=== PATIENT | male | born 1945 | race African-American/Black ===

== ENCOUNTER 2017-07-07 01:35 | Inpatient (IN) | payer OTHER, MEDICAID ==
[~2017-07-07] VITALS: Ht 188 cm; Wt 124.3 kg
[2017-07-07] MEDS ORDERED: QNAS80AE (02:00)
[2017-07-07] MEDS ORDERED: HYDR100T PO (02:00)
[2017-07-07] MEDS ORDERED: CARV25TA PO (02:00)
[2017-07-07] MEDS ORDERED: SPIR25TA2 PO (02:00)
[2017-07-07] MEDS ORDERED: POTA10CA32 PO (02:00)
[2017-07-07] MEDS ORDERED: ACET650T3 PO (02:00)
[2017-07-07] MEDS ORDERED: SITA50TAB PO (02:00)
[2017-07-07] MEDS ORDERED: ISOS60TA2 PO (02:00)
[2017-07-07] MEDS ORDERED: GLIP5TAB8 PO (02:00)
[2017-07-07] MEDS ORDERED: ELIQ5TAB PO (02:00)
[2017-07-07] MEDS ORDERED: LORA10CA PO (02:00)
[2017-07-07] MEDS ORDERED: FURO20TA2 PO (02:00)
[2017-07-07] MEDS ORDERED: ASPI1TAB PO (02:00)
[2017-07-07 02:19] LABS: BASO % 0.6 % (0.0-1.0); EOS # 0.1 10^3/uL (0.0-0.50); EOS % 1.8 % (0.0-3.0); IMMATURE GRANULOCYTE % 0.3 % (0-0); LYMPH # 0.8 10^3/uL (1.5-4.5); LYMPH % 11.7 % (24.0-44.0); MEAN CORPUSCULAR HEMOGLOBIN 27.9 pg (27.0-33.0); MEAN CORPUSCULAR HGB CONC 32.6 g/dl (32.0-36.5); MEAN CORPUSCULAR VOLUME 85.5 fl (80.0-96.0); MONO # 0.6 10^3/uL (0.0-0.8); MONO % 8.7 % (0.0-5.0); NEUTROPHILS # 5.1 10^3/uL (1.8-7.7); NEUTROPHILS % 76.9 % (36.0-66.0); PLATELET COUNT, AUTOMATED 203 10^3/uL (150-450); RED CELL DISTRIBUTION WIDTH 14.6 % (11.5-14.5); WHITE BLOOD COUNT 6.6 10^3/uL (4.0-10.0)
[2017-07-07 02:45] LABS: CALCIUM LEVEL 9.1 MG/DL (8.8-10.2); CREATININE FOR GFR 2.17 MG/DL (0.70-1.30); GLOMERULAR FILTRATION RATE 32.1 (>42); POTASSIUM SERUM 4.2 MEQ/L (3.5-5.1)
[2017-07-07 02:55] LABS: ALBUMIN 3.3 GM/DL (3.2-5.2); ALBUMIN/GLOBULIN RATIO 0.97 (1.00-1.93); BILIRUBIN,DIRECT 0.5 MG/DL (0.0-0.2); TOTAL PROTEIN 6.7 GM/DL (6.4-8.2)
[2017-07-07] MEDS ORDERED: FUROSEMIDE 100 MG/10 ML VIAL (J1940) IV ONE (04:45)
[2017-07-07] MEDS ORDERED: FLON1SPR (05:19)
[2017-07-07] MEDS ORDERED: HYDR-3911 PO (05:19)
[2017-07-07] MEDS ORDERED: FURO80TA2 PO (05:19)
[2017-07-07 05:26] LABS: THYROXINE (T4) 8.9 UG/DL (4.5-12.0)
[2017-07-07] MEDS ORDERED: GLUCOSE 4 GM CHEW TABLET PO PRN (06:00)
[2017-07-07] MEDS ORDERED: DEXTROSE 50% 50 ML SYRINGE IV PRN (06:00)
[2017-07-07] MEDS ORDERED: GLUCAGON FOR INJ 1 MG VIAL (J1610) SC PRN (06:00)
--- NOTE | 2017-07-07 06:00 | REPUSA ---
CLINICAL HISTORY: Shortness of breath. TECHNIQUE: Multiple axial CT images were obtained through chest with IV contrast material. MPR beckford l and sagittal sequences were obtained. COMMENTS: Moderate cardiomegaly. Moderate pulmonary congestion. Pacemaker wire is in good position. Moderate hepatomegaly. Irregular hepatic contour. Bilateral basilar atelectatic pulmonary changes. There is no evidence of pleural or parenchymal mass. There are no pleural effusions. There is no evid ence of hilar or mediastinal lymphadenopathy. The heart and great vessels are within normal limits. There is no intra or extrahepatic biliary ductal dilatation. The spleen is unremarkable. The visualiz ed pancreas is of normal contour and attenuation characteristics. There is no evidence of adrenal mas s. The visualized portions of the kidneys present no abnormalities. The bony structures are free of lytic or blastic lesions. Multilevel degenerative changes are seen in volving the thoracic spine. Scattered calcifications are seen involving the aorta and visualized janet r branches compatible with atherosclerosis. IMPRESSION: Hepatomegaly. Pulmonary venous congestion. Cardiomegaly. Basilar atelectatic pulmonary changes. Thank you for your kind referral of this patient.
--- NOTE | 2017-07-07 06:21 | HPEPDOC ---
General Date of Admission 07/07/2017 Other Providers PCP: Dr. Fernando Hagan in [place] He just recently moved [place] approximately 1.5 months ago, therefore he will need to establish with a new PCP Attending Physician: YARA RYDER MD Chief Complaint The patient is a 71-year-old male admitted with a reason for visit of SOB. Source: Patient Exam Limitations: No limitations History of Present Illness Mr. Vargas is a 71-year-old -[place]ux[place] male who presented to the emergency department with complaints of shortness of breath for 2 days duration. He states that he also has had a nonproductive cough during that time as well. He believes that this may be due to some postnasal drip. He denies any fevers, chills, night sweats, and he does not weigh himself. He does not think that he has increased swelling of the lower extremities, but that his lower extremities are at their usual state of edema currently. He admits that he has not been able to sleep lying down ever since he put in his defibrillator. He does not wear a CPAP or BiPAP. Generally he is able to ambulate quite well using a cane, however now he gets short of breath just walking beyond even a few steps. Home Medications Scheduled (Flonase Allergy Relief) 50 Mcg/Act Spr, 2 SPRAYS NA DAILY, (Reported) Acetaminophen (Acetaminophen ER) 650 Mg Tab, 650 MG PO Q8H, (Reported) Apixaban Base (Eliquis) 5 Mg Tab, 5 MG PO BID, (Reported) Aspirin (Aspirin 81) 81 Mg Tab, 81 MG PO DAILY, (Reported) Carvedilol (Carvedilol) 25 Mg Tab, 25 MG PO BID, (Reported) Furosemide (Furosemide) 80 Mg Tab, 80 MG PO TID, (Reported) Glipizide (Glipizide) 5 Mg Tab, 5 MG PO DAILY, (Reported) Hydralazine HCl (Hydralazine HCl) 50 Mg Tab, 50 MG PO TID, (Reported) Isosorbide Mononitrate (Isosorbide Mononitrate ER) 60 Mg Tab, 60 MG PO DAILY, ( Reported) Potassium Chloride (Potassium Chloride ER) 10 Meq Cap, 10 MEQ PO BID, (Reported) Sitagliptin (Januvia) 50 Mg Tab, 50 MG PO DAILY, (Reported) Spironolactone (Spironolactone) 25 Mg Tab, 25 MG PO DAILY, (Reported) Allergies Coded Allergies: No Known Allergies (Unverified , 07/07/17) Past Medical History Medical History Atrial fibrillation on Eliquis Congestive heart failure status post placement and defibrillator (presumed systolic, but he does not know) Diabetes mellitus type 2 Hypertension Bilateral lower extremity ulcers, he has 2 ulcers on the left leg, one anteriorly one posteriorly both approximately 1 cm, he has one ulcer on the right leg on the anterior tibia approximately 1.5 cm Surgical History Right inguinal hernia repair Bilateral knee surgeries Defibrillator placement Finger surgery Family History Both his mother and father suffered from heart failure. He has no other past family history of stroke, heart attack, diabetes, or cancer Social History * Smoker: Denies (never smoker) Alcohol: Denies Drugs: denies Recent Travel/Sick Contacts: Reports: Recent travel (moving here from [place] approximately 1.5 months ago), Denies: Recent sick contacts Psychosocial History: No pertinent psych hx He is able ambulate with a cane, normally he is able to get around just fine with such as activities as grocery shopping. Review of Symptoms Constitutional: Denies: Chills, Fever, Night Sweats Eyes: Denies: Pain, Vision change ENT: Denies: Head Aches, Ear Pain, Dysphagia Skin: Denies: Rash, Lesions, Breakdown Pulmonary: Reports: Dyspnea, Cough (nonproductive) Cardiovascular: Reports: Orthopnea, Paroxysmal Noc. Dyspnea, Denies: Chest Pain, Palpitations, Lt Headedness Gastrointestinal: Denies: Nausea, Vomiting, Abdominal Pain, Diarrhea Genitourinary: Denies: Dysuria, Frequency, Incontinence, Retention Hematologic: Denies: Bruising, Bleeding Excessively Neurological: Denies: Weakness, Numbness, Change in speech, Confusion Psych: Reports: Mood Normal, Denies: Depression, Memory Issues Physical Examination General Exam: Positive: Alert, Cooperative, Mild Distress Eye Exam: Positive: Conjunctiva & lids normal, EOMI, Negative: Sclera icteric ENT Exam: Positive: Atraumatic, Mucous membr. moist/pink, Pharynx Normal Neck Exam: Positive: Supple, JVD, Negative: thyromegaly Chest Exam: Positive: Rales, Wheezing, Diminished Heart Exam: Positive: Rate Normal, Irregular Rhythm Telemetry: Positive: Atrial fibrillation Abdomen Exam: Positive: Normal bowel sounds, Soft, Negative: Tenderness, Hepatospenomegaly Extremity Exam: Positive: Edema (2+ pitting edema to the knees bilaterally), Normal pulses, Negative: Clubbing, Cyanosis Skin Exam: Positive: Nl turgor and temperature, Negative: Breakdown, Lesion Neuro Exam: Positive: Normal Gait, Normal Speech, Strength at 5/5 X4 ext, Cranial Nerves 3-12 NL Psych Exam: Positive: Mental status NL, Mood NL, Oriented x 3, Negative: Anxiety Vital Signs Vital Signs Date Time Temp Pulse Resp B/P (MAP) Pulse Ox O2 Delivery O2 Flow Rate FiO2 07/07/17 04:54 97.6 20 134/89 (104) 07/07/17 04:43 98 92 07/07/17 02:35 Room Air Laboratory Data Labs 24H Laboratory Tests 2 07/07/17 02:13: Immature Granulocyte % (Auto) 0.3H, White Blood Count 6.6, Red Blood Count 4.98 , Hemoglobin 13.9L, Hematocrit 42.6, Mean Corpuscular Volume 85.5, Mean Corpuscular Hemoglobin 27.9, Mean Corpuscular Hemoglobin Concent 32.6, Red Cell Distribution Width 14.6H, Platelet Count 203, Neutrophils (%) (Auto) 76.9H, Lymphocytes (%) (Auto) 11.7L, Monocytes (%) (Auto) 8.7H, Eosinophils (%) (Auto) 1.8, Basophils (%) (Auto) 0.6, Neutrophils # (Auto) 5.1, Lymphocytes # (Auto) 0.8L, Monocytes # (Auto) 0.6, Eosinophils # (Auto) 0.1, Basophils # (Auto) 0.0, Immature Granulocyte # (Auto) 0.0, Nucleated Red Blood Cells % (auto) 0.0, Anion Gap 8, Glomerular Filtration Rate 32.1L, Blood Urea Nitrogen 33H, Creatinine 2.17H, Sodium Level 136, Potassium Level 4.2, Chloride Level 98, Carbon Dioxide Level 30, Calcium Level 9.1, Aspartate Amino Transf (AST/SGOT) 7L , Alanine Aminotransferase (ALT/SGPT) 20, Alkaline Phosphatase 69, Total Bilirubin 1.0, Direct Bilirubin 0.5H, Total Creatine Kinase 112, Creatine Kinase MB 2.0, Creatine Kinase MB Relative Index 1.78, Troponin I 0.02, NT-Pro-B -Type Natriuretic Peptide 4489H, Total Protein 6.7, Albumin 3.3, Albumin/ Globulin Ratio 0.97L, Thyroid Stimulating Hormone (TSH) 2.410, Free Thyroxine Index 3.9H, Thyroxine (T4) 8.9, Triiodothyronine (T3) Uptake 44H CBC/BMP Laboratory Tests 07/07/17 02:13 Red Blood Count 4.98, Mean Corpuscular Volume 85.5, Mean Corpuscular Hemoglobin 27.9, Mean Corpuscular Hemoglobin Concent 32.6, Red Cell Distribution Width 14.6 H, Neutrophils (%) (Auto) 76.9 H, Lymphocytes (%) (Auto) 11.7 L, Monocytes (%) (Auto) 8.7 H, Eosinophils (%) (Auto) 1.8, Basophils (%) (Auto) 0.6, Neutrophils # (Auto) 5.1, Lymphocytes # (Auto) 0.8 L, Monocytes # (Auto) 0.6, Eosinophils # (Auto) 0.1, Basophils # (Auto) 0.0, Calcium Level 9.1 Problems (1) Acute decompensated heart failure Status: Acute Problem Text: Will aggressively diurese with IV Lasix to net negative 2 L. We' ll keep him on a consistent carbohydrate diet with no added salt as well as a low-fat, low cholesterol restriction. As the patient is unsure as to what type of congestive heart failure he has, and he has never had an echocardiogram in our system we will order one at this time. We will follow daily labs including a BMP with a magnesium, as well as CBC, thyroid panel was negative in the ED, as well as initial cardiac marker panel, but we will cycle 2 additional cardiac marker panels. His AN-proBNP was elevated. (2) Acute renal failure Status: Acute Problem Text: The patient is a good historian and appears to be well aware of his medical history, however he is unaware of any sort of renal failure, therefore we must treat him as though he is in acute renal failure. We will order UA, urine electrolytes and osmolality, and renal ultrasound (3) Atrial fibrillation Status: Chronic Problem Text: Continue home dose of Eliquis (4) Congestive heart disease Status: Chronic Problem Text: Continue with home dose of spironolactone and carvedilol (5) Hypertension Status: Chronic Problem Text: Continue with his home dose of hydralazine and isosorbide mononitrate (6) Diabetes mellitus type 2 in obese Status: Chronic Problem Text: We will hold home oral diabetic medications and place him on insulin sliding scale before meals and at bedtime while inpatient (7) Bilateral leg ulcer Status: Chronic Problem Text: Will have wound care come and evaluate him and treat as necessary (8) Status post internal cardiac defibrillator procedure Status: Chronic Plan / VTE VTE Prophylaxis Ordered?: Yes (Eliquis) GME ATTESTATION GME ATTESTATION My preceptor for this patient encounter was physically present in the building during the encounter and was fully available. As needed, all aspects of the patient interview, examination, medical decision making process, and medical care plan development were reviewed and approved by the preceptor. Preceptor is aware and concurs with the plan as stated in the body of this note and will attest to such by his/her cosignature. ATTENDING NOTE I have both independently examined this patient as well as reviewed the H&P. I have discussed in detail with the resident the findings and plan of treatment as documented in the residents note. I will continue to follow the patient and offer further guidance to the patients care as necessary during this hospital stay. KATHARINE JORDAN DO Jul 07, 2017 06:21 YARA RYDER MD Jul 07, 2017 18:35
[2017-07-07] MEDS: FUROSEMIDE 100 MG/10 ML VIAL (J1940) IV SCH ×3 (07:41→17:25)
[2017-07-07] MEDS: SPIRONOLACTONE 25 MG TAB PO SCH (08:37)
[2017-07-07] MEDS: APIXABAN 5 MG TAB (ELIQUIS) PO SCH ×2 (08:37→22:04)
[2017-07-07] MEDS: ASPIRIN 81 MG ENTERIC TAB PO SCH (08:37)
[2017-07-07] MEDS: SENOKOT S TAB PO SCH ×2 (08:37→22:04)
[2017-07-07] MEDS: HumaLOG INSULIN (NovoLOG) PER UNIT SC SCH ×3 (08:38→17:30)
[2017-07-07] MEDS: ACETAMINOPHEN 650MG ER TAB (TYLENOL ARTHRITIS) PO SCH ×3 (08:38→22:03)
[2017-07-07] MEDS: CARVedilol 12.5 MG TAB PO SCH ×2 (08:38→22:04)
[2017-07-07] MEDS: ISOSORBIDE MON. (IMDUR) 60 MG XR TAB PO SCH (08:39)
[2017-07-07] MEDS: FLUTICASONE PROP 0.05% NASAL SPRAY 16 GM (FLONASE) SCH (08:39)
[2017-07-07] MEDS ORDERED: **hydrALAZINE** 50 MG TAB PO SCH (09:00)
[2017-07-07 10:23] LABS: INR 1.82
[2017-07-07 10:33] LABS: MEAN CORPUSCULAR HEMOGLOBIN 27.5 pg (27.0-33.0); MEAN CORPUSCULAR HGB CONC 32.5 g/dl (32.0-36.5); MEAN CORPUSCULAR VOLUME 84.8 fl (80.0-96.0); RED CELL DISTRIBUTION WIDTH 14.6 % (11.5-14.5); WHITE BLOOD COUNT 6.4 10^3/uL (4.0-10.0)
[2017-07-07 10:37] LABS: CREATININE FOR GFR 2.03 MG/DL (0.70-1.30); FREE T4 1.57 NG/DL (0.76-1.46); POTASSIUM SERUM 3.6 MEQ/L (3.5-5.1)
[2017-07-07 12:00] VITALS: BP 105/63
--- NOTE | 2017-07-07 15:09 | ECGEPIP ---
Stationary ECG Study [facility] - ED Test Date: 2017-07-07 Pat Name: JENNI KELLEY Department: Room: [place] [address] Gender: M Office Lead: GormanB: 1945 Requested By: KIMBERLY Blakely Order Number: [id number] Reading MD: Racheal Adler Measurements Intervals [place] Rate: 102 P: SD: 0 QRS: 105 QRSD: 109 T: 60 QT: 375 QTc: 489 Interpretive Statements ATRIAL FIBRILLATION WITH RAPID VENTRICULAR RESPONSE MARKED RIGHT AXIS DEVIATION PATTERN CONSISTENT WITH PULMONARY DISEASE INFERIOR MYOCARDIAL INFARCTION, PROBABLY OLD NO PRIOR FOR COMPARISON Electronically Signed On 07-07-2017 15:08:54 EDT by Racheal Adler
[2017-07-07 16:00] VITALS: BP 105/77
[2017-07-07] MEDS ORDERED: POTASSIUM CHLORIDE 10 MEQ SR TABLET PO ONE (16:00)
[2017-07-07] MEDS: KCL 10MEQ IN 100ML SWI (KRUN) 10 MEQ in APPROPRIATE DILUENT 1 EA IV SCH ×4 (16:37→17:26)
[2017-07-07 16:52] LABS: CREATININE FOR GFR 1.91 MG/DL (0.70-1.30); POTASSIUM SERUM 3.7 MEQ/L (3.5-5.1)
--- NOTE | 2017-07-07 18:20 | REPUSA ---
Clinical history: Renal failure. Findings: The urinary bladder appears unremarkable. No urinary bladder masses are seen. The right kid david measures 13.3 x 7.5 x 6.2 cm. The left kidney measures 11.9 x 9.9 x 6.1 cm. The kidneys demonstra te normal echotexture and echogenicity. There is no evidence of hydronephrosis or nephrolithiasis. No renal masses are seen. No free fluid is appreciated. Impression: Unremarkable ultrasound examination of the kidneys.
[2017-07-07 19:10] LABS: OSMOLALITY URINE 306 MOSM/KG (500-800)
[2017-07-07 19:54] VITALS: BP 133/91
--- NOTE | 2017-07-07 20:15 | IPN ---
DATE: 07/07/2017 SUBJECTIVE: Patient is seen and examined in the room today. Patient stated his breathing is improving. Patient has a chronic history of congestive heart failure, however patient has not been following fluid restriction religiously. Patient has been having chronic lower extremity wounds from uncontrolled fluid issue. Patient used to see a livestock nutrition territory manager in [place]. Patient moved to [place] approximately 1-2 months ago and has not established with a primary care provider. OBJECTIVE: VITAL SIGNS: Temperature 96.9, pulse 93, respirations 18, blood pressure 105/63, pulse oximetry 96% in room air. GENERAL: Morbidly obese. No sign of acute distress. Alert and oriented times three. HEENT: Normocephalic, atraumatic. Extraocular motors grossly intact. CARDIOVASCULAR: Positive S1, S2, irregularly irregular. LUNGS: Positive crackles bilaterally. No wheezes. ABDOMEN: Morbidly obese, soft, nontender, nondistended. Bowel sounds present. EXTREMITIES: There are multiple small skin lesions with serous fluid draining out from the ulcers. Positive lower extremity edema. LABORATORY DATA: WBC 6.4, hemoglobin 13.8, hematocrit 42.5, platelet count 204. Sodium 133, potassium 3.6, chloride 95, carbon dioxide 32, BUN 32, creatinine 2.03, GFR 42, fasting glucose 164, calcium 9, magnesium 2. Free T4 is 1.57. ASSESSMENT AND PLAN: 1. Systolic congestive heart failure. Patient will have a repeat echo performed. At baseline, patient is taking by mouth Lasix and by mouth spironolactone. Patient has not been very compliant with fluid restriction at home. Currently, patient is receiving IV Lasix diuresis along with by mouth spironolactone. IV Lasix has a holding parameter. Will try to achieve negative 2 liters in 24 hour duration. 2. Acute kidney injury, now above patient's renal function baseline. Patient received Lasix diuresis. Since admission, renal function is improving. Followup with urine chemistry and renal ultrasound. 3. Atrial fibrillation, on Eliquis. Patient is also taking Coreg. 4. Nonsustained ventricular tachycardia. Since admission, has had three episodes of nonsustained ventricular tachycardia and the most recent is only spaced out by 1 hour. During both episodes, patient is asymptomatic. Patient does have a defibrillator. Case discussed with eco industrial development consultant livestock nutrition territory manager, Dr. Frank, who recommends continued monitoring and we will try to maintain the potassium level greater than 4. Will also continue to monitor the magnesium. At this moment, magnesium level is within normal range. 5. Diabetes. Will hold the glipizide and Januvia. Continue with the sliding scale. Patient will be on consistent carbohydrate diet. 6. Bilateral leg ulcer with serous fluid drainage. Most likely is secondary to chronic fluid overload. Continue to monitor. Patient has been on aggressive Lasix diuresis. 7. History of defibrillator placement. 8. Hypertension. Currently patient is hypotensive. Will hold the hydralazine. Patient is receiving Lasix diuresis. Continue to monitor blood pressure. 9. Deep venous thrombosis (DVT) prophylaxis. Patient is on Eliquis.
[2017-07-07 23:59] VITALS: BP 112/80
[2017-07-08] VITALS (14 sets, daily range): BP systolic 122–134; BP diastolic 76–91; O2SAT 92–97
[2017-07-08] MEDS: FUROSEMIDE 100 MG/10 ML VIAL (J1940) IV SCH ×4 (00:21→17:46)
[2017-07-08 05:45] LABS: MEAN CORPUSCULAR HEMOGLOBIN 27.4 pg (27.0-33.0); MEAN CORPUSCULAR HGB CONC 32.4 g/dl (32.0-36.5); MEAN CORPUSCULAR VOLUME 84.5 fl (80.0-96.0); RED CELL DISTRIBUTION WIDTH 14.6 % (11.5-14.5); WHITE BLOOD COUNT 5.9 10^3/uL (4.0-10.0)
[2017-07-08] MEDS: ACETAMINOPHEN 650MG ER TAB (TYLENOL ARTHRITIS) PO SCH ×3 (05:59→21:42)
[2017-07-08 06:12] LABS: CALCIUM LEVEL 8.7 MG/DL (8.8-10.2); CREATININE FOR GFR 1.84 MG/DL (0.70-1.30); MAGNESIUM LEVEL 1.9 MG/DL (1.8-2.4); POTASSIUM SERUM 3.7 MEQ/L (3.5-5.1)
--- NOTE | 2017-07-08 06:21 | ECHO ---
DATE OF PROCEDURE: 07/07/2017 REFERRING PHYSICIAN: Dr. Mariana Weller. INDICATION: Heart failure unspecified, dyspnea. HEIGHT: 74 inches. WEIGHT: 129 kg. 2D MEASUREMENTS: Aortic root: 3.7 cm Proximal ascending aorta: 3.8 cm Left atrium: 5.5 cm Left ventricle diastole: 6.6 cm Ventricular septum: 1.12 cm Posterior wall: 1.01 cm Inferior vena cava: 2.8 cm DOPPLER MEASUREMENTS: Aortic valve velocity: 84.7 cm/s LVOT velocity: 57.9 cm/s LVOT VTI: 9.8 cm Moderate mitral regurgitation. Mitral E velocity: 91.8 cm/s Mitral A velocity: 40.0 cm/s Mitral deacceleration time: 111 ms Moderate tricuspid regurgitation. Estimated right ventricular systolic pressure at least 56 mmHg assuming an atrial pressure of 20 mmHg. Mild pulmonic regurgitation. Pulmonary artery systolic pressure 44 mmHg by pulmonary acceleration time method. MITRAL ANNULAR TISSUE DOPPLER: E-prime lateral: 7.4 cm/s E-prime septal: 7.6 cm/s DESCRIPTION: Rhythm was sinus with some PVCs and an episode of nonsustained ventricular tachycardia was recorded. This was a 2D, M-mode, color flow Doppler and pulsed wave Doppler examination and included mitral annular tissue Doppler. Imaging quality was fair. CONCLUSIONS: 1. Moderately dilated left ventricle with severe global LV hypokinesis and severe reduction of overall LV systolic function. LVEF 10% by visual estimate. 2. Structurally normal appearing mitral leaflets. Moderate mitral regurgitation. 3. Severe left atrial dilatation. 4. Mild dilatation of the proximal ascending aorta. 5. Structurally normal appearing tricuspid leaflets. Moderate tricuspid regurgitation. Suggestive of moderate elevation of pulmonary artery systolic pressure and estimated right ventricle systolic pressure. Normal right ventricle systolic function. 6. 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 Elevated central venous pressure of at least 20 mmHg. 7. Mild aortic valve sclerosis of a 3-cusp aortic valve. 8. Small pericardial effusion. No diastolic chamber collapse. 9. Presence of an ICD lead coursing toward the right ventricle apex position.
[2017-07-08] MEDS: HumaLOG INSULIN (NovoLOG) PER UNIT SC SCH ×3 (07:55→17:45)
[2017-07-08] MEDS ORDERED: AMIODARONE HCL 150 MG in APPROPRIATE DILUENT 1 EA IV STA (08:58)
[2017-07-08] MEDS: APIXABAN 5 MG TAB (ELIQUIS) PO SCH ×2 (08:59→21:36)
[2017-07-08] MEDS: SPIRONOLACTONE 25 MG TAB PO SCH (08:59)
[2017-07-08] MEDS: ISOSORBIDE MON. (IMDUR) 60 MG XR TAB PO SCH (08:59)
[2017-07-08] MEDS: SENOKOT S TAB PO SCH ×2 (08:59→21:37)
[2017-07-08] MEDS: ASPIRIN 81 MG ENTERIC TAB PO SCH (08:59)
[2017-07-08] MEDS: CARVedilol 12.5 MG TAB PO SCH ×2 (08:59→21:36)
[2017-07-08] MEDS: FLUTICASONE PROP 0.05% NASAL SPRAY 16 GM (FLONASE) SCH (09:00)
[2017-07-08] MEDS: PANTOPRAZOLE 40MG TAB (PROTONIX) PO SCH (15:24)
--- NOTE | 2017-07-08 17:25 | IPN ---
DATE: 07/08/2017 SUBJECTIVE: Patient is seen and examined in the room today. Patient stated his breathing has shown some improvement with Lasix diuresis. Patient has significant urine output from the IV Lasix. Patient recently moved to [place] approximately 1 1/2 months ago. Patient is staying in [place] for a long time, however patient has not established with a primary care physician (PCP) and closing coordinator. Patient does have a closing coordinator in [place]. We will try to obtain the record from the previous closing coordinator and consent obtained from the patient. On telemetry, patient does have frequent nonsustained ventricular tachycardia and it re-occurs every 1-2 hours. Since admission, patient has remained asymptomatic. OBJECTIVE: VITAL SIGNS: Temperature 97.3, pulse 80, respirations 19, blood pressure 122/77, pulse oximetry 94% in room air. GENERAL: No sign of acute distress, alert and oriented times three. HEENT: Normocephalic, atraumatic. Extraocular motors grossly intact. CARDIOVASCULAR: Irregularly irregular, positive S1, S2. LUNGS: Positive crackles bilaterally, no wheezes. ABDOMEN: Morbidly obese, soft, nontender, nondistended. Bowel sounds present. EXTREMITIES: There is a skin tear of the right lower extremity. Still has multiple small skin lesions with serous fluid drainage of the ulcers. Positive bilateral lower extremity edema. LABORATORY DATA: WBC 5.9, hemoglobin 13.4, hematocrit 41.3, platelet count 188. Sodium 135, potassium 3.7, chloride 97, carbon dioxide 30, BUN 34, creatinine 1.84, GFR 47, fasting glucose 129, calcium 8.7, magnesium 1.9. ASSESSMENT AND PLAN: 1. Systolic congestive heart failure exacerbation. Echocardiogram was performed. From the echo report, patient has an ejection fraction (EF) of approximately 10%. Patient is currently being diuresed with IV Lasix. Patient does have a good net balance. Respiratory status has been improving. Case was discussed with Dr. Biswas and we are trying to establish patient with cardiology in [place]. Patient also has a defibrillator. Patient is also on spironolactone. 2. Frequent nonsustained ventricular tachycardia. Approximately every 1-2 hours, the patient has 5-10 beats of ventricular tachycardia. Patient has been asymptomatic during those episodes. Dr. Biswas has been consulted and we started amiodarone and currently patient is on carvedilol. We will try to obtain the records from patient's closing coordinator. 3. Acute kidney injury secondary to decompensated heart failure. Patient has been receiving IV Lasix since admission and renal function is improving. Followup with urine chemistry and renal ultrasound. 4. Atrial fibrillation, on Eliquis and on Coreg. 5. Diabetes. Hold the glipizide and Januvia. Continue on sliding scale and consistent carbohydrate diet. 6. Bilateral leg ulcers with serous fluid drainage, most likely secondary to chronic fluid overload. Patient is being treated with Lasix diuresis. Would recommend foam dressing on the skin tears and foam dressing can also help with some degree of serous drainage fluid removal. 7. History of defibrillator placement. 8. Hypertension. Hydralazine has been on hold due to the soft blood pressure on admission. Currently, patient's blood pressure is in the satisfactory range. Patient is currently on Lasix diuresis and Coreg, Imdur, and spironolactone. 9. Deep venous thrombosis (DVT) prophylaxis, on Eliquis.
[2017-07-08] MEDS: AMIODARONE 200 MG TAB (PACERONE) PO SCH (21:37)
[2017-07-08] MEDS: **hydrALAZINE** 10 MG TAB PO SCH (21:41)
[2017-07-08] MEDS: ISOSORBIDE DIN (ISORDIL) 10 MG TAB PO SCH (21:42)
--- NOTE | 2017-07-08 21:53 | CR ---
DATE OF CONSULTATION: 07/08/2017 REFERRING PHYSICIAN: Dr. Huang INDICATION: Cardiomyopathy, severe systolic congestive heart failure and bouts of nonsustained ventricular tachycardia. HISTORY OF PRESENT ILLNESS: Mr. Vargas is previously unknown to me. He is a very pleasant 71-year-old -[place] man who actually moved to [facility] only about 6 weeks ago. He tells me that he was diagnosed with cardiac condition approximately a year and a half ago. He has very limited understanding of what this means but based on the history, it seems to me that he most likely has nonischemic cardiomyopathy. He was started on appropriate medications and was implanted with a defibrillator. The patient denies any history of coronary artery disease, but cannot tell me whether he had any coronary intervention. He tells me that he got sick approximately a month and a half ago, around the time when he moved to [facility]. He said it was about a 17-hour ride in a car and when he got out of the car, he immediately realized that he developed some peripheral edema. It got slowly, progressively worse, and he started having exertional dyspnea to the degree of eventually orthopnea and paroxysmal nocturnal dyspnea (PND). When he came to our emergency room, he was in tim congestive heart failure with a mild degree of pulmonary edema and very prominent peripheral edema. He was found to be in atrial fibrillation with modestly rapid ventricular rate. BNP was extremely elevated over 4000. For reasons that are somewhat mysterious to me, he had a CT angiography of the chest. It did confirm cardiomegaly and presence of congestion, including hepatic congestion. He was admitted to the progressive care unit (PCU) and treated with fairly aggressive doses of intravenous (IV) diuretics. His blood pressure was initially fairly soft, so his chronic hydralazine was discontinued. Dr. Huang has asked me to see him mostly because he kept having multiple runs of nonsustained ventricular tachycardia that were occurring every hour or two, none of them were long enough that they would activate his defibrillator. At the time of my evaluation, the patient tells me that he is feeling slightly better. He does report some improvement of the shortness of breath, not much improvement in peripheral edema. He has no awareness of any palpitations, and he denies any chest discomfort. PAST MEDICAL HISTORY 1. Most likely nonischemic cardiomyopathy. 2. Chronic atrial fibrillation. 3. Status post implantable cardioverter defibrillator (ICD) placement (the patient does not know what brand of device he has). 4. Chronic cough. 5. Type 2 diabetes. 6. Arterial hypertension. SURGICAL HISTORY: Positive for: Bilateral knee surgeries. Inguinal hernia repair and defibrillator placement. OUTPATIENT MEDICATIONS: - spironolactone 25 mg a day - Januvia 50 mg a day - isosorbide mononitrate 60 mg a day - hydralazine 50 mg three times a day - glipizide 5 mg a day - furosemide 80 mg three times a day - Coreg 25 mg twice a day - aspirin 81 mg a day - apixaban 5 mg twice a day - Tylenol as needed. ALLERGIES: He does not have any documented medication allergies. FAMILY HISTORY: Both of his parents of congestive heart failure. He is not aware of any details but does not believe that he had coronary artery disease. SOCIAL HISTORY: The patient does not smoke and does not drink alcohol. He just moved from [place] approximately a month and a half ago to live with his daughter. 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 He, at his baseline, ambulates with a cane. REVIEW OF SYSTEMS: As of recently, he had paroxysmal nocturnal dyspnea (PND) and orthopnea. He has chronic mostly nonproductive cough that he has been ascribing to postnasal drip. No palpitations. No chest pain. No syncope. No ICD discharges. No abdominal pain. No nausea, vomiting, diarrhea. No genitourinary symptoms. No skin lesions. He at his baseline has only mild peripheral edema that is much worse lately. Denies any psychiatric history. The rest of review of systems is negative. PHYSICAL EXAMINATION: Mr. Vargas is an elderly -[place] man, very pleasant, alert and oriented and appropriate. Last set of vital signs: Blood pressure 130/76, heart rate has been in 80s, irregularly irregular. He is afebrile. Saturation 95% on room air. His fluid balance yesterday was negative 2600. He is about a liter negative today. Weight is documented this morning 144 kg, which in my opinion seems to be more than is realistic. He was yesterday measured at only 129, which seems to me more like so. His jugular venous pressure (JVP) is at least 5 or 6 cm above clavicle in sitting position. Lungs are relatively clear to auscultation with only occasional crackle. I do not appreciate any wheezing. Heart: Exam reveals rather muffled heart sound with irregularly irregular rhythm, and there is a systolic murmur at the left sternal border and also in apex, indicative of likely both tricuspid and mitral insufficiency. There is an ICD in left subclavian pocket. Abdomen is obese but soft. I cannot elicit shifting dullness. No tenderness or rebound tenderness. There is 3+ edema well above his knees. Neurologically he is intact. Renal ultrasound revealed no obstruction. CT of the chest revealed cardiomegaly and presence of venous congestion. Chest x-ray reveals the same plus presence of single chamber ICD. He had an echocardiogram earlier that was interpreted by Dr. Frank, but I reviewed it myself. In a nutshell, it reveals severe enlargement of all four cardiac chambers with global hypokinesis and associated insufficiencies of mitral and tricuspid valves. His central venous pressure (CVP) is very high consistent with physical exam. LABORATORY: Basic metabolic panel as of today reveals potassium 3.7, BUN 34, creatinine 1.8 for a GFR of 47 and glucose 129, magnesium is 1.9. His TSH on admission was 2.4 and N-terminal proBNP was 4489. His CBC reveals hemoglobin 13.4, hematocrit 41 and platelet count 188,000. Urine is negative for protein. ASSESSMENT AND PLAN: Mr. Vargas is a 71-year-old -[place] man who most likely has nonischemic cardiomyopathy, potentially even tachycardia-induced cardiomyopathy even though seems to be less likely. On presentation to the hospital, he was already on an excellent medication regimen. The fact that he was not on angiotensin-converting enzyme (QUINTEN) inhibitors makes me think that he probably has baseline renal dysfunction. Currently, he is grossly volume overloaded, and I agree with current diuretic regimen. I am going to reintroduce a low dose of hydralazine. It was rather unfortunate that he underwent CT angiography on presentation as the diagnosis seems to be rather obvious and with chronic anticoagulation the probability of pulmonary embolus is very low. But fortunately his renal function is improving, which is encouraging. As far as multiple runs of nonsustained ventricular tachycardia is concerned, he was already started on amiodarone. We will see how his condition evolves, but I am hoping that we will avoid long-term administration of amiodarone, possibly the dose of Coreg can be increased further because he is a large man and certainly the dose can be increased to 50 mg twice a day, but I would NOT do so until his condition is a little bit better hemodynamically compensated. The rest of management will depend on the record that we received from [place]. Depending what was already done will influence what further evaluation he may need locally. I will follow the patient with you. Thank you for this consultation.
[2017-07-09] VITALS (23 sets, daily range): BP systolic 112–140; BP diastolic 63–89; O2SAT 85–99
[2017-07-09] MEDS: FUROSEMIDE 100 MG/10 ML VIAL (J1940) IV SCH ×4 (00:10→17:48)
[2017-07-09 05:44] LABS: MEAN CORPUSCULAR HEMOGLOBIN 27.4 pg (27.0-33.0); MEAN CORPUSCULAR HGB CONC 32.7 g/dl (32.0-36.5); MEAN CORPUSCULAR VOLUME 83.9 fl (80.0-96.0); RED CELL DISTRIBUTION WIDTH 14.6 % (11.5-14.5); WHITE BLOOD COUNT 5.9 10^3/uL (4.0-10.0)
[2017-07-09 06:03] LABS: CALCIUM LEVEL 9.1 MG/DL (8.8-10.2); CREATININE FOR GFR 1.84 MG/DL (0.70-1.30); MAGNESIUM LEVEL 1.9 MG/DL (1.8-2.4); POTASSIUM SERUM 3.6 MEQ/L (3.5-5.1)
[2017-07-09] MEDS: ACETAMINOPHEN 650MG ER TAB (TYLENOL ARTHRITIS) PO SCH ×3 (06:45→21:24)
[2017-07-09] MEDS: **hydrALAZINE** 10 MG TAB PO SCH ×3 (06:45→21:24)
[2017-07-09] MEDS: ISOSORBIDE DIN (ISORDIL) 10 MG TAB PO SCH ×3 (06:45→21:23)
[2017-07-09] MEDS: FLUTICASONE PROP 0.05% NASAL SPRAY 16 GM (FLONASE) SCH (08:10)
[2017-07-09] MEDS: HumaLOG INSULIN (NovoLOG) PER UNIT SC SCH ×3 (08:11→17:48)
[2017-07-09] MEDS: APIXABAN 5 MG TAB (ELIQUIS) PO SCH ×2 (08:13→21:24)
[2017-07-09] MEDS: PANTOPRAZOLE 40MG TAB (PROTONIX) PO SCH (08:13)
[2017-07-09] MEDS: CARVedilol 12.5 MG TAB PO SCH ×2 (08:13→21:25)
[2017-07-09] MEDS: AMIODARONE 200 MG TAB (PACERONE) PO SCH ×2 (08:13→21:24)
[2017-07-09] MEDS: SPIRONOLACTONE 25 MG TAB PO SCH (08:14)
[2017-07-09] MEDS: SENOKOT S TAB PO SCH ×2 (08:14→21:24)
[2017-07-09] MEDS: ASPIRIN 81 MG ENTERIC TAB PO SCH (08:14)
--- NOTE | 2017-07-09 08:28 | IPN ---
DATE: 07/09/2017 Mr. Vargas tells me that he had a decent night. He was able to sleep reasonably well and did not have any paroxysmal nocturnal dyspnea (PND). He denies any sensation of palpitations or chest pain. He continued to have several episodes of nonsustained ventricular tachycardia, the longest was seven beats. Blood pressure this morning is 140/86, heart rate has been mostly from 60s to 80s. He is atrial fibrillation with intermittent ventricular pacing. Saturation is 99% on 2 liters of oxygen by nasal cannula. Fluid balance was yesterday documented at 900 negative, he put out over 2 liters of urine but I am not sure how accurate the documentation of both intake and output actually is. Weight according to scales is actually up 4 kg which seems highly unlikely. He is alert and oriented and appropriate. His jugular venous pulse (JVP) is still very high. I estimate about 5 or 6 cm above clavicle in sitting position. Lungs are reasonably clear to auscultation. Heart exam reveals irregular rhythm. There are murmurs suggestive of both MR and TR. Abdomen is distended but soft. There is still 3+ edema bilaterally above his knees. LABORATORY: Basic metabolic panel - potassium 3.6, BUN 38, creatinine 1.8 for calculated GFR 47, glucose is 132. CBC reveals hemoglobin 13.3, hematocrit 40.7 and platelet count 182,000. ASSESSMENT/PLAN: Mr. 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 He presented with acutely exacerbated systolic/diastolic congestive heart failure in setting of reasonably well rate-controlled atrial fibrillation. As a complicating factor he has acute on chronic renal insufficiency and he also has multiple runs of nonsustained ventricular tachycardia. At this point we should continue focus on diuresis. He is receiving 80 mg of furosemide three times a day and 25 mg of spirolactone. I reintroduced hydralazine and isosorbide yesterday as blood pressure is sufficiently high to allow this. He is also on full dose of Coreg 25 twice a day, will continue the same management. If tolerated I will further advance the dose of vasodilating agents. He is not on QUINTEN inhibitors. I suspect that this is due to some degree of baseline renal insufficiency. I expect that we will receive some records from [place] today. The second issue are the runs of nonsustained ventricular tachycardia, they were so frequent that Dr. Huang actually initiated amiodarone therapy. I am hoping that once we stabilize his situation as far as heart failure is concerned that we will be able to eliminate the amiodarone, but for the time being I would continue administration. As far as the atrial fibrillation is concerned, he is reasonably well-controlled and he is anticoagulated with Eliquis. He was started by Dr. Huang on methimazole 5 mg daily, I am not exactly sure what is the rationale and unless there is some strong evidence for hyperthyroidism which I do not see I would advocate to discontinue the medication.
[2017-07-09] MEDS ORDERED: INFLUENZA VIRUS VACCINE HIGH DOSE 0.5 ML SYRINGE (90662) IM ONE (09:00)
[2017-07-09] MEDS ORDERED: PREVNAR 13 VACCINE SYRINGE (CPT CODE:90670) IM ONE (09:00)
--- NOTE | 2017-07-09 13:02 | IPN ---
DATE OF SERVICE: 07/09/2017 Patient seen and examined at the bedside. Chart has been reviewed. Patient has no complaints of chest pain, pressure or tightness, lightheadedness or dizziness. Input overnight of 1200, output of 2125, negative 925. Weight is 144.5 kg, 148.4 kg. Vital signs: Temperature 97.2, pulse 88, respiratory rate 20, blood pressure 128/89, 94% on room air. Generally awake, alert, oriented times three, answering questions appropriately. Positive jugular venous distention. Lungs are clear to auscultation. No wheezing, rales or rhonchi. Heart: S1, S2, irregularly irregular. Abdomen is soft, nontender, nondistended. 3+ pitting edema bilaterally. Laboratory data, imaging studies have been reviewed. Renal ultrasound 07/07/2017, unremarkable ultrasound of the kidneys. ASSESSMENT AND PLAN: This is a 71-year-old male with past medical history significant for atrial fibrillation on Eliquis, congestive heart failure (CHF) status post automatic implantable cardioverter defibrillator (AICD), type 2 diabetes, hypertension, bilateral lower extremity ulcers, currently with the following issues. 1. Systolic, diastolic congestive heart failure exacerbation. 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 Currently on IV Lasix three times a day and spironolactone, hydralazine, isosorbide and Coreg. Due to chronic kidney disease, patient is on an angiotensin-converting enzyme (QUINTEN) inhibitor. 2. Nonsustained ventricular tachycardia. Amiodarone. Currently on telemetry monitoring for changesOptimize potassium and magnesium. 3. Atrial fibrillation. Reasonably well controlled, anticoagulated with Eliquis. 4. Normal thyroid-stimulating hormone (TSH). Will discontinue methimazole Free T4, T3 only slightly elevated. and TSH is normal may repeat TFTs as outpatient. [facility]
[2017-07-09] MEDS: ONDANSETRON 4MG/2ML VIAL (J2405) IV PRN (17:00)
[2017-07-10] VITALS (18 sets, daily range): BP systolic 103–128; BP diastolic 57–90; O2SAT 91–100
[2017-07-10 05:37] LABS: MEAN CORPUSCULAR HEMOGLOBIN 27.2 pg (27.0-33.0); MEAN CORPUSCULAR VOLUME 85.2 fl (80.0-96.0); RED CELL DISTRIBUTION WIDTH 14.7 % (11.5-14.5); WHITE BLOOD COUNT 7.2 10^3/uL (4.0-10.0)
[2017-07-10 05:45] LABS: CREATININE FOR GFR 2.35 MG/DL (0.70-1.30); GLOMERULAR FILTRATION RATE 35.5 (>42); MAGNESIUM LEVEL 1.9 MG/DL (1.8-2.4); POTASSIUM SERUM 4.1 MEQ/L (3.5-5.1)
[2017-07-10] MEDS: ISOSORBIDE DIN (ISORDIL) 10 MG TAB PO SCH ×3 (06:05→21:25)
[2017-07-10] MEDS: ACETAMINOPHEN 650MG ER TAB (TYLENOL ARTHRITIS) PO SCH ×3 (06:05→21:25)
[2017-07-10] MEDS: **hydrALAZINE** 10 MG TAB PO SCH ×3 (06:05→21:25)
[2017-07-10] MEDS: FUROSEMIDE 100 MG/10 ML VIAL (J1940) IV SCH ×4 (06:06→21:20)
--- NOTE | 2017-07-10 07:52 | IPN ---
DATE: 07/10/2017 Mr. Vargas tells me that he did not have a particularly good night, it was kind of hard for him to breathe. He believes mostly because the room was too warm. He apparently normally sleeps in a cold room well that he keeps cool to about 65 degrees. Denies any chest pain. Denies any palpitations. He did not have any tim paroxysmal nocturnal dyspnea (PND) as such. Vital signs: Blood pressure 111/63, heart rate has been in 70s. His atrial fibrillation with on demand ventricular pacing and he continues to have runs of nonsustained ventricular tachycardia that are asymptomatic. Saturation is 94-97 % on 2 liters of oxygen by nasal cannula. His fluid balance yesterday was documented as negative 1100. Weight is 146 kg. He is alert and oriented and appropriate. His jugular venous pulse (JVP) is still very high. Lungs reveal occasional end inspiratory crackle but for the most part is clear. Heart exam irregular rhythm. No gallop or rub. There is murmur consistent with MR and TR well audible. There is remains to be about 2+ edema on both lower extremities, even though I do see some improvement. Neurologically he is intact. LABORATORY: Potassium 4.1, BUN 43, creatinine 2.4 for GFR 36 which is actually a deterioration since yesterday, glucose is 165. ASSESSMENT/PLAN: Mr. Vargas is a 71-year-old man who has chronic atrial fibrillation and likely nonischemic cardiomyopathy. He presented with exacerbated systolic heart failure with concomitant renal insufficiency. Unfortunately his condition is not improving as rapidly as I would like to I am particularly concerned about the fact that his creatinine is actually worse today than it was yesterday. I am going to discontinue Cardizem that was prescribed yesterday, it is not a good idea to give Cardizem to the patient with severe LV systolic dysfunction and it has negative inotropic properties and is considered relatively contraindicated in his condition. I am trying to advance the dose of hydralazine ever so slightly in order to provide additional vasodilatation. If there is no effect we probably will have to give him even higher doses of diuretics in spite of the renal insufficiency because his central venous pressure unfortunately remains high. The second issue is atrial fibrillation. He has been chronically anticoagulated with apixaban and rate is reasonably well-controlled. If needs to be the dose of Coreg can be increased further. He also was started on amiodarone because of frequent runs of nonsustained ventricular tachycardia which will help the rate control as well. I am somewhat concerned about the fact that his renal function deteriorated yesterday. I talked about this with the patient. Unfortunately we still have not received the records from [place] and I asked the overage shortage and damage clerk to work on this issue. CHAD
[2017-07-10] MEDS: APIXABAN 5 MG TAB (ELIQUIS) PO SCH ×2 (08:57→20:17)
[2017-07-10] MEDS: AMIODARONE 200 MG TAB (PACERONE) PO SCH ×2 (08:57→21:26)
[2017-07-10] MEDS: HumaLOG INSULIN (NovoLOG) PER UNIT SC SCH ×3 (08:57→17:47)
[2017-07-10] MEDS: ASPIRIN 81 MG ENTERIC TAB PO SCH (08:57)
[2017-07-10] MEDS: PANTOPRAZOLE 40MG TAB (PROTONIX) PO SCH (08:57)
[2017-07-10] MEDS: CARVedilol 12.5 MG TAB PO SCH ×2 (08:58→21:25)
[2017-07-10] MEDS: SENOKOT S TAB PO SCH ×2 (08:59→21:26)
[2017-07-10] MEDS: FLUTICASONE PROP 0.05% NASAL SPRAY 16 GM (FLONASE) SCH (08:59)
--- NOTE | 2017-07-10 09:23 | REP ---
Portable chest x-ray: Single view. History: CHF. Check for resolution. Comparison study: July 07, 2017. Findings: A unipolar pacemaker is again seen in the right heart via the left side. EKG electrodes are noted. Cardiomegaly is seen unchanged. There is cephalization of the pulmonary vasculature as before. No pleural effusion or pulmonary edema is seen. There is a zone of linear plate-like atelectasis in the left base today. No new infiltrate. Signed by Leonidas Yancey MD 07/10/2017 09:33 A
--- NOTE | 2017-07-10 12:31 | IPN ---
DATE OF SERVICE: 07/10/2017 Patient is seen and examined at the bedside. Chart has been reviewed. This morning, patient has persistent complaints of shortness of breath despite diuresis yesterday of 2 liters and net negative of 1 liter. No chest pain, pressure tightness, nausea, vomiting, diaphoresis, feeling of impending doom, fever, chills or cough. He complains of abdominal discomfort and increasing abdominal distension. Per RN, pt is having bowel movements. Telemetry consistently showed NSVT. vital signs were stable and patient was asymptomatic. CURRENT VITALS: Temperature 98.1, pulse 59, respiratory rate 18, blood pressure 125/90, 97% on 2 liters nasal cannula. Input 970, output 2080, negative 1110. Current weight 148.1 kg, 148.4 kg yesterday, 146.1 kg this morning. Generally, patient is awake, alert, oriented times three, anicteric sclera, no jaundice. Positive jugular venous distention. Moist mucous membranes. Lungs: Diminished with fine rales at the bases. Heart: S1, S2 sinus rhythm. S1, S2 irregularly irregular. AICD noted. Abdomen: Obese, soft, nontender, slightly distended. some ascites. Extremities: 3+ edema to the sacrum. Laboratory data, imaging studies have been reviewed. ASSESSMENT AND PLAN: This is a 71-year-old male with history of atrial fibrillation on chronic Eliquis, congestive heart failure (CHF), severe systolic dysfunction, ejection fraction 10% status post automatic implantable cardioverter defibrillator (AICD), type 2 diabetes, hypertension, bilateral lower extremity ulcers, currently with the following issues. 1. Systolic, diastolic heart failure exacerbation. Acute on chronic exacerbation. Ejection fraction of 10% despite increasing BUN and creatinine. Patient continues to be fluid overloaded. Will continue to diurese with Lasix 80 IV every 8 hours and spironolactone. Will need nephrology at some point if patient continues to have decreased output with worsening creatinine currently in congestive heart failure (CHF) thought to be secondary to tachycardia mediated dilated cardiomyopathy. Currently on spironolactone, hydralazine, isosorbide and Coreg. Due to chronic kidney disease, worsening BUN and creatinine, angiotensin receptor blockers (ARBs) or angiotensin-converting enzyme (QUINTEN) inhibitor could not be given. 2. Nonsustained ventricular tachycardia status post AICD. Optimized potassium and magnesium, asymptomatic and with normal vitals during the episode. Continue on telemetry monitoring. 3. Atrial fibrillation. Rate controlled, anticoagulated with Eliquis 4. Abdominal pain most likely from ascites from severe chf and fluid overload. If stable on telemetry and blood pressure permitting, will send for ultrasound of the abdomen. If a significant pocket of ascitic fluid, will proceed with paracentesis. MTDD
[2017-07-10] MEDS: PERCOCET 5MG/325MG TAB PO PRN (17:47)
[2017-07-10 18:36] LABS: MAGNESIUM LEVEL 2.1 MG/DL (1.8-2.4); POTASSIUM SERUM 4.1 MEQ/L (3.5-5.1)
[2017-07-10] MEDS: SPIRONOLACTONE 12.5MG PER 1/2 TABLET PO SCH (21:25)
[2017-07-11] VITALS (10 sets, daily range): BP systolic 99–137; BP diastolic 62–86; O2SAT 89–98
[2017-07-11] MEDS: PERCOCET 5MG/325MG TAB PO PRN ×3 (00:04→21:37)
[2017-07-11 05:23] LABS: MEAN CORPUSCULAR HEMOGLOBIN 27.6 pg (27.0-33.0); MEAN CORPUSCULAR HGB CONC 33.2 g/dl (32.0-36.5); MEAN CORPUSCULAR VOLUME 83.2 fl (80.0-96.0); RED CELL DISTRIBUTION WIDTH 14.7 % (11.5-14.5); WHITE BLOOD COUNT 6.1 10^3/uL (4.0-10.0)
[2017-07-11 05:50] LABS: CREATININE FOR GFR 2.7 MG/DL (0.70-1.30); GLOMERULAR FILTRATION RATE 30.2 (>42)
[2017-07-11 05:51] LABS: CALCIUM LEVEL 8.6 MG/DL (8.8-10.2)
[2017-07-11] MEDS: ISOSORBIDE DIN (ISORDIL) 10 MG TAB PO SCH ×3 (06:20→21:38)
[2017-07-11] MEDS: FUROSEMIDE 100 MG/10 ML VIAL (J1940) IV SCH ×3 (06:20→21:35)
[2017-07-11] MEDS: ACETAMINOPHEN 650MG ER TAB (TYLENOL ARTHRITIS) PO SCH ×3 (06:27→21:37)
--- NOTE | 2017-07-11 08:19 | IPN ---
DATE OF SERVICE: 07/11/2017 Patient seen and examined at the bedside. Chart has been reviewed. Patient complains of bilateral lower quadrant abdominal pain, increasing abdominal distention despite net negative diuresis for the past 4 days, decrease in weight from peak weight of 148 kg to 145 kg. He continues to be short of breath with no complaints of chest pain, pressure, tightness. Had slight nausea this morning. Vitals: Temperature 96.9, pulse 60, respiratory rate 18, blood pressure 99/76, 97% on 2 liters nasal cannula. Generally, awake, alert, oriented times three, answering questions appropriately. No use of respiratory accessory muscles. Positive jugular venous distention. Moist mucous membranes. Lungs: Diminished. Clear to auscultation upper lobes. Crackles at the bases. Heart: S1, S2. Irregularly irregular. Abdomen is obese, soft, slightly tender bilateral lower quadrants. 2+ pitting edema. LABORATORY DATA 07/11: CBC, metabolic panel have been reviewed. Chest x-ray 07/10: No pulmonary edema is seen. Linear plate like atelectasis. No new infiltrate. Unipolar pacer right heart. Cardiomegaly unchanged. ASSESSMENT AND PLAN: This is a 71-year-old male with history of chronic kidney disease stage III, congestive heart failure (CHF), atrial fibrillation on chronic Eliquis, automated implantable cardioverter-defibrillator (AICD), 10% ejection fraction, diabetes, hypertension, bilateral lower extremity ulcers admitted for worsening shortness of breath, currently with acute exacerbation congestive heart failure. 1. Acute exacerbation and congestive heart failure systolic/diastolic dysfunction. Ejection fraction 10%. Thought to be secondary to tachycardic mediated dilated cardiomyopathy and spironolactone, hydralazine, isosorbide, Coreg and Lasix due to chronic kidney disease. Worsening BUN and creatine. Dick inhibitor and angiotensin receptor blockers (ARBs) could not be given. Dr. Biswas is currently managing current medications. Will consult nephrology due to worsening creatinine. 2. Moderate tricuspid regurgitation with moderate pulmonary hypertension/moderate mitral regurgitation, severe left atrial dilation. Currently on spironolactone, isosorbide, Coreg. Managed by Dr. Biswas, Cardiology. 3. Atrial fibrillation, rate controlled on anticoagulation with Eliquis and aspirin. Currently on Coreg 25 twice daily. 4. Hypertension, currently hypotensive, systolic pressure 99. Currently on hydralazine and isosorbide, will need to be titrated for better blood pressure, to increase diuresis. Defer to cardiology. 5. Acute on chronic renal failure secondary to congestive heart failure. 6. History of diabetes and hypertension in the past. Defer to Dr. Ferreira for diuresis. Renal ultrasound shows unremarkable ultrasound with no hydronephrosis or nephrolithiasis. 7. Abdominal pain most likely due to ascites. Check ultrasound of the abdomen. Possible paracentesis.
[2017-07-11] MEDS: PANTOPRAZOLE 40MG TAB (PROTONIX) PO SCH (08:54)
[2017-07-11] MEDS: HumaLOG INSULIN (NovoLOG) PER UNIT SC SCH ×3 (08:54→18:31)
[2017-07-11] MEDS: CARVedilol 12.5 MG TAB PO SCH ×2 (08:55→21:38)
[2017-07-11] MEDS: **hydrALAZINE** 10 MG TAB PO SCH ×3 (08:55→21:36)
[2017-07-11] MEDS: AMIODARONE 200 MG TAB (PACERONE) PO SCH ×2 (08:55→21:35)
[2017-07-11] MEDS: ASPIRIN 81 MG ENTERIC TAB PO SCH (08:56)
[2017-07-11] MEDS: SENOKOT S TAB PO SCH ×2 (08:56→21:38)
[2017-07-11] MEDS: FLUTICASONE PROP 0.05% NASAL SPRAY 16 GM (FLONASE) SCH (08:56)
[2017-07-11] MEDS: APIXABAN 5 MG TAB (ELIQUIS) PO SCH ×2 (09:00→21:00)
--- NOTE | 2017-07-11 09:01 | IPN ---
DATE: 07/11/2017 Mr. Vargas is not doing well. Last night, he had paroxysmal nocturnal dyspnea (PND). He had had difficulty breathing. He feels better this morning. Denies any chest pain or palpitations. On telemetry monitoring, he remains in mostly controlled atrial fibrillation. He still has brief runs of nonsustained ventricular tachycardia, but it is improving. Vital signs this morning, blood pressure 99/76, heart has been in the 60s, he is afebrile and saturation is 97% on 2-3 liters oxygen by nasal cannula. His fluid balance yesterday was documented about 700 mL negative. He put out only about 1925 mL of urine. Weight is 145 kg, which is about 1 kg down since yesterday. He is alert, oriented and appropriate. His jugular venous pulse (JVP) is high, probably not better than yesterday. Lungs though are relatively clear. Heart exam reveals an irregular rhythm. There are murmurs of mitral regurgitation (MR) and tricuspid regurgitation (TR). I do not appreciate a rub or gallop. Abdomen is distended, but soft. There is some induration of the skin over the lower abdomen and he complains about some pain in that area. There remains very prominent peripheral edema. Neurologically, he is intact. Laboratory-bynum, CBC is normal. Basic metabolic panel reveals sodium 129, BUN 51 and creatinine 2.7 for a GFR of 30, and magnesium is 2. ASSESSMENT/PLAN: Mr. Vargas is a 71-year-old, -[place] man who has acute on chronic systolic congestive heart failure in the setting of presumptively nonischemic cardiomyopathy. He also has atrial fibrillation that is reasonably well rate-controlled. Unfortunately, he remains grossly volume overloaded and simultaneously his renal function is deteriorating with the attempt for diuresis. I am concerned that this may lead to dialysis. I had a discussion with him on this topic. He is certainly very discouraged by this news, but I am not aware of any alternative. He certainly will need to get higher doses of diuretics, but I am going to contact the renal service first before doing so, just for them to be prepared. Otherwise, he is on a strong vasodilating regimen. I am going to leave it unchanged. As far as the atrial fibrillation is concerned, he is well rate-controlled and is anticoagulated. Finally, the ventricular tachycardia that he has been having bouts of is decreasing with ongoing use of amiodarone.
--- NOTE | 2017-07-11 11:10 | REP ---
Abdomen pelvis ultrasound, limited study for ascites: Ultrasonography of all four quadrants of the abdomen and of the pelvis is performed. There is no ascites. Further evaluation is not requested for performed. Impression: No ascites. Signed by Sinan Chou MD 07/11/2017 11:01 A
[2017-07-11 11:22] LABS: ALBUMIN 3.4 GM/DL (3.2-5.2)
[2017-07-11] MEDS ORDERED: TOLVAPTAN 15 MG TAB (SAMSCA) PO ONE (17:00)
[2017-07-11] MEDS: ONDANSETRON 4MG/2ML VIAL (J2405) IV PRN (21:32)
[2017-07-11] MEDS: SPIRONOLACTONE 12.5MG PER 1/2 TABLET PO SCH (21:37)
--- NOTE | 2017-07-11 23:48 | CR ---
DATE OF CONSULTATION: 07/11/2017 REQUESTING PHYSICIAN: Dr. Nina Harp REASON FOR CONSULTATION: Acute kidney injury on chronic kidney disease stage III in the setting of hypervolemia and end-stage systolic heart failure. HISTORY OF THE PRESENT ILLNESS: Mr. Vargas is a 71-year-old male who was previously residing in [place] and only recently moved to [facility] about 1-1/2 months ago. The patient states about 1-2 years ago, he was diagnosed with congestive heart failure. He denies any history of coronary artery disease requiring stents or bypass. He subsequently had an automatic implantable cardioverter defibrillator (AICD) placed. He denies any recent hospitalizations for decompensated heart failure. He denies lower extremity swelling while he was in [place]. The patient states after he moved to [facility], he continued to take his prior medications. He did not establish with a physician in [facility]. He was not fluid restricting and states over the course of the summer, he had liberal fluid intake and noticed increase in peripheral edema with exertional dyspnea and reduced exercise tolerance. He was admitted to [facility] on 07/07/2017 with decompensated heart failure. His creatinine on admission was 2.1. I contacted his primary care doctor, Fernando Pinzon in [place], phone number [phone], for the patient's baseline renal function. On 03/28/2017, his creatinine was 1.6. The patient had a contrast study on 07/07/2017. His creatinine, which initially was improving, subsequently deteriorated. He is currently being actively diuresed with escalating doses of diuretics and further deterioration in renal function. The patient was seen this morning at the bedside, chief complaint of ongoing significant peripheral edema, but at this time, denies any shortness of breath. He has had episodes of nonsustained ventricular tachycardia over the course of this admission. 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 Status post AICD. Chronic atrial fibrillation. Hypertension. Type 2 diabetes. CKD stage III, baseline creatinine 1.6 on labs from [place] - 03/28/2017. SURGICAL HISTORY: Bilateral knee surgery. Inguinal hernia repair. AICD placement. ALLERGIES: No known drug allergies. FAMILY HISTORY: Significant for congestive heart failure in both of his parents. SOCIAL HISTORY: The patient recently moved from [place] about 6 weeks ago to [facility]. He denies smoking, drugs and alcohol. REVIEW OF SYSTEMS: Positive for dyspnea on exertion, orthopnea and peripheral edema. Negative for chest pain, palpitations, syncope, nausea, vomiting, diarrhea, dysuria, urinary retention. Remainder of review of systems is negative. VITAL SIGNS: Temperature 96.5, pulse 73, respiratory rate 16, blood pressure 128/62, pulse oximetry 96% on 2 liters nasal cannula. INTAKE AND OUTPUT: On average, the patient has been making about 2 liters of urine a day and has been in modest net negative fluid balance over the course of this admission. Weight is 145 kg, slowly down trending. PHYSICAL EXAMINATION: General: The patient is awake, alert, oriented. He is out of bed to the chair. He is conversational and appropriately interactive. Extraocular muscles are intact. Mucous membranes are moist. Jugular venous distention is present. Neck is supple, no lymphadenopathy. He has symmetric audible air entry without overt crackle or rale while sitting upright in a chair. Cardiovascular: Irregular rhythm, S1, S2, systolic murmur present, 2+ radial pulse. AICD L chest. Significant peripheral edema in the lower extremities present, 2 to 3+ pitting. Abdomen is soft, obese, nontender. Neurologic: No focal deficits. Psychiatric: Appropriate mood and affect. LABORATORY: White count 6.1, hemoglobin 14, platelet 180. Sodium 129, decreased from prior, potassium 4.0, bicarbonate 27, BUN 50, creatinine 2.7, calcium 8.6, magnesium 2.0, BNP 3900. Urine osmolality 360. IMAGING: Renal ultrasound 07/07/2017: Normal echo texture, echogenicity. No hydronephrosis. Chest x-ray 07/10/2017: No infiltrate or edema seen. INPATIENT MEDICATIONS: Reviewed by myself. The patient is on: - amiodarone 400 mg by mouth twice a day - Eliquis 5 mg by mouth twice a day - aspirin 81 mg by mouth daily - Coreg 25 mg by mouth twice a day - Lasix 80 mg IV every 8 hours - hydralazine 30 mg by mouth three times a day - Isordil 10 mg by mouth every 8 hours - Aldactone 12.5 mg by mouth nightly - insulin ASSESSMENT AND PLAN: A 71-year-old male with decompensation of severe left ventricular systolic congestive heart failure with significant peripheral edema with concomitant acute on chronic renal failure. 1. Acute kidney injury on chronic kidney disease stage III. The patient's baseline creatinine is about 1.6. Given his severe systolic cardiomyopathy and his moderate chronic kidney disease, he has a propensity to decompensations in his volume status and fluid overload, and I feel that this will likely be an ongoing issue for him in the future as well. Unfortunately, he also did receive a contrast study during this admission while he was also receiving diuretics. I have discussed with Dr. Biswas regarding a trial of inotropic support to see if that helps his renal function or if augments his diuresis. However, he has been having runs of nonsustained ventricular tachycardia during the course of this admission, and there is a concern of giving him further arrhythmogenic medications at this time. He has a high likelihood to require renal replacement therapy, and he will be assessed daily for the same. I have spoken with the patient and his daughter regarding this. 2. Severe systolic congestive heart failure, ejection fraction 10%. After his acute issues resolve, the patient would benefit from evaluation by advanced heart failure services for possible LVAD, home inotropes, or OHT. He otherwise has a very poor prognosis. Given his severe systolic cardiomyopathy and his moderate chronic kidney disease, he will definitely have recurrent decompensations of his volume status. 3. Chronic atrial fibrillation. The patient is rate controlled. He continues on Eliquis. 4. Nonsustained ventricular tachycardia. I am hesitant to place the patient on dopamine given his recurrent bouts of nonsustained ventricular tachycardia (v-tach) despite being on amiodarone. His systolic pressures have also been reasonably stable thus far. 5. Hypervolemic hyponatremia. We will give a dose of tolvaptan to further augment diuresis as well as to correct his sodium. Thank you for involving us in the care of this patient. We will be happy to follow the patient along with you. CHAD
[2017-07-12] VITALS (12 sets, daily range): BP systolic 109–145; BP diastolic 56–90; O2SAT 94–98
[2017-07-12] MEDS ORDERED: SLF 3 ML SYR IV PRN (03:45)
[2017-07-12] MEDS: ACETAMINOPHEN 650MG ER TAB (TYLENOL ARTHRITIS) PO SCH ×3 (05:08→21:40)
[2017-07-12] MEDS: PERCOCET 5MG/325MG TAB PO PRN ×2 (05:09→21:42)
[2017-07-12] MEDS: SLF 3 ML SYR IV SCH ×3 (05:09→21:44)
[2017-07-12] MEDS: FUROSEMIDE 100 MG/10 ML VIAL (J1940) IV SCH ×3 (05:09→21:43)
[2017-07-12] MEDS: ISOSORBIDE DIN (ISORDIL) 10 MG TAB PO SCH ×3 (05:12→21:40)
[2017-07-12 05:52] LABS: MEAN CORPUSCULAR HEMOGLOBIN 26.9 pg (27.0-33.0); MEAN CORPUSCULAR HGB CONC 31.9 g/dl (32.0-36.5); MEAN CORPUSCULAR VOLUME 84.3 fl (80.0-96.0); RED CELL DISTRIBUTION WIDTH 14.6 % (11.5-14.5); WHITE BLOOD COUNT 7.3 10^3/uL (4.0-10.0)
[2017-07-12 06:05] LABS: CALCIUM LEVEL 8.2 MG/DL (8.8-10.2); CREATININE FOR GFR 2.72 MG/DL (0.70-1.30)
[2017-07-12] MEDS: HumaLOG INSULIN (NovoLOG) PER UNIT SC SCH ×4 (07:30→17:41)
[2017-07-12] MEDS ORDERED: GASTROGRAFIN SOLUTION 30ML PO ONE (08:00)
[2017-07-12] MEDS: AMIODARONE 200 MG TAB (PACERONE) PO SCH ×2 (08:13→21:41)
[2017-07-12] MEDS: **hydrALAZINE** 10 MG TAB PO SCH ×3 (08:13→21:40)
[2017-07-12] MEDS: APIXABAN 5 MG TAB (ELIQUIS) PO SCH ×2 (08:13→21:41)
[2017-07-12] MEDS: SENOKOT S TAB PO SCH ×2 (08:13→21:40)
[2017-07-12] MEDS: ASPIRIN 81 MG ENTERIC TAB PO SCH (08:13)
[2017-07-12] MEDS: FLUTICASONE PROP 0.05% NASAL SPRAY 16 GM (FLONASE) SCH (08:14)
[2017-07-12] MEDS: CARVedilol 12.5 MG TAB PO SCH ×2 (08:14→21:42)
--- NOTE | 2017-07-12 08:22 | IPN ---
DATE: 07/12/2017 Mr. Vargas is feeling slightly better today. He had a better night and was able to sleep and did not have any paroxysmal nocturnal dyspnea (PND). He also denies any chest pain or palpitations. Vital Signs: Blood pressure 112/74. Heart rate has been in the 60s and 70s. He has atrial fibrillation with occasional on demand pacing and unfortunately he continues to have runs of nonsustained ventricular tachycardia. Saturation 93% on 2 liters of oxygen by nasal cannula. He is afebrile. His fluid balance was not well documented yesterday, he already made about 650 mL of urine today, but his weight has not been documented today as well. He is alert and oriented and appropriate. His jugular venous pulse (JVP) is still very high. Lungs are reasonably clear with only occasional crackle. Heart exam reveals muffled heart sounds corresponding to his obesity, but he does have a systolic murmur, both just left from the lower sternum and apically, both about 2/6 intensity. Abdomen is protuberant, but soft. There is some induration of the skin consistent with his anasarca. I do not appreciate any shifting dullness. He still has 3+ peripheral edema. Laboratory-bynum, hemoglobin this morning is 13.4, hematocrit 42 and platelet count 189,000. Basic metabolic panel with potassium 4.0, BUN 53 and creatinine 2.7 for GFR of 13, glucose 143 ASSESSMENT/PLAN: Mr. Vargas is a 71-year-old -[place] man who has atrial fibrillation that is known to be chronic and also cardiomyopathy with severe LV systolic dysfunction and estimated ejection fraction in the neighborhood of 10%. He presented with acutely exacerbated congestive heart failure (CHF) and this is in the setting of underlying renal insufficiency with baseline creatinine of around 1.6. He initially responded favorably to diuresis, but unfortunately now his renal function deteriorated. Fortunately, since yesterday, it leveled off. He did get a single dose of tolvaptan, which helped his sodium slightly since yesterday. I will continue the current dosing of diuretics. I talked to the nurse to make sure we have a very good documentation of his intake and output. I also talked to the patient about this. If he should not produce significant net negative balance today, then he should receive Zaroxolyn tomorrow. As far as atrial fibrillation is concerned, it is reasonably well rate-controlled. He is anticoagulated with apixaban. He also has multiple runs of nonsustained ventricular tachycardia. He had again at least three yesterday, the longest just a little over 10 beats. Unfortunately, I am concerned sufficiently enough that I am reluctant to give him dobutamine to promote diuresis.
[2017-07-12] MEDS ORDERED: GASTROGRAFIN SOLUTION 30ML (Q9963) PO ONE (08:30)
[2017-07-12] MEDS: PANTOPRAZOLE 40MG TAB (PROTONIX) PO SCH (08:47)
--- NOTE | 2017-07-12 09:29 | IPN ---
DATE OF SERVICE: 07/12/2017 Patient seen and examined at the bedside. Chart has been reviewed. Patient still complains of bilateral lower quadrant abdominal discomfort. No dysuria, urgency or frequency, fever or chills. Shortness of breath is significantly improved. Temperature 98.6. Pulse 63. Respiratory rate 18. Blood pressure 111/77. 93% on 2 liters nasal cannula. Input and output overnight: Input 980, output 350, positive 630. Current weight is 145 kg. Previous 146.1 kg. Generally, awake, alert, oriented times three. No use of respiratory accessory muscles. Positive jugular venous distention. Lungs are clear. Some crackles at the bases. Heart: S1, S2, irregularly irregular. Abdomen is obese, soft, nontender, nondistended. Extremities: 2+ pitting edema. LABORATORY DATA: CBC and metabolic panel have been reviewed and notable for a 2.7 creatinine, increased from yesterday, and severe hyponatremia of 130. Abdominal ultrasound yesterday shows no ascites. ASSESSMENT AND PLAN: This is a 71-year-old male who moved from [place] to the [facility] with history of chronic kidney disease stage III, congestive heart failure (CHF), diastolic and systolic dysfunction, ejection fraction (EF) of 10%, atrial fibrillation on chronic Eliquis, automated implantable cardioverter-defibrillator (AICD), diabetes, hypertension, bilateral lower extremity ulcers admitted for worsening shortness of breath, treated for acute exacerbation of congestive heart failure and acute on chronic renal failure. CURRENT ISSUES: 1. 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 Currently on spironolactone, hydralazine, isosorbide, and Coreg. No QUINTEN inhibitor or angiotensin receptor jerel (ARB) due to worsening creatinine. Dr. Biswas has been managing his heart failure. Dr. Ferreira has been consulted due to worsening renal dysfunction with potential plan for dialysis if patient does not diurese with conservative management. Due to nonsustained ventricular tachycardia on telemetry, we are reluctant to use inotropic effect to increase the diuresis. 2. Nonsustained ventricular tachycardia, AICD, EF of 10%, with severe systolic dysfunction. Currently on amiodarone and Coreg. Despite these two medications, he continues to have 2-3 beats on telemetry. 3. Chronic atrial fibrillation, rate controlled. 4. Hyponatremia secondary to congestive heart failure (CHF). Poor prognosis. 5. Abdominal pain. Obtain CT of abdomen and pelvis as no ascites was found on ultrasound of the abdomen.
--- NOTE | 2017-07-12 09:57 | REP ---
CT of the abdomen pelvis without IV or bowel contrast: The visualized lower lung caraballo reveal a subsegmental infiltrate posterior inferiorly in the lingula. The pericardium measures up to 6 mm, nonspecific, pericardial thickening versus small pericardial effusion. The unenhanced hepatic parenchyma is unremarkable except for small calcified granulomas. There is a faintly visible 9 mm gallbladder calculus. The gallbladder appears contracted. There is no biliary duct dilatation. The unenhanced pancreas and spleen are unremarkable. The adrenals are unremarkable. There is a nonobstructive 5 ml calculus at the lower pole of the right kidney. There is no hydronephrosis. The unenhanced kidneys are otherwise unremarkable. The abdominal aorta is unremarkable. There is no retroperitoneal adenopathy. There is no bowel distension or obstruction. There is ascending colon, descending colon and sigmoid colon diverticulosis. There is no CT evidence of diverticulitis. Pelvis: The appendix has a normal appearance. The bladder is unremarkable. There is no adenopathy or ascites. Impression: Ascending colon, descending colon and sigmoid colon diverticulosis without diverticulitis. Nonobstructive right renal calculus. Faintly visible gallbladder calculus. The gallbladder is contracted. Pericardial thickening measuring up to 6 mm, nonspecific, small pericardial effusion versus pericardial thickening. Subsegmental infiltrate inferiorly in the lingula posteriorly. No hydronephrosis. Signed by Sinan Chou MD 07/12/2017 09:48 A
[2017-07-12] MEDS: DOPamine HCL 800 MG in APPROPRIATE DILUENT 1 EA IV SCH (12:25)
[2017-07-12] MEDS: ONDANSETRON 4MG/2ML VIAL (J2405) IV PRN (13:55)
[2017-07-12] MEDS ORDERED: CHLOROTHIAZIDE 500 MG VIAL (J1205) IV ONE (18:00)
[2017-07-12 20:25] LABS: CALCIUM LEVEL 8.6 MG/DL (8.8-10.2); CREATININE FOR GFR 2.4 MG/DL (0.70-1.30); GLOMERULAR FILTRATION RATE 34.6 (>42); MAGNESIUM LEVEL 2.1 MG/DL (1.8-2.4); POTASSIUM SERUM 3.7 MEQ/L (3.5-5.1)
[2017-07-12] MEDS: SPIRONOLACTONE 12.5MG PER 1/2 TABLET PO SCH (21:00)
[2017-07-12] MEDS ORDERED: POTASSIUM CHLORIDE 10 MEQ SR TABLET PO ONE (21:00)
[2017-07-12] MEDS: aMILoride 5 MG TAB PO SCH (22:09)
[2017-07-12] MEDS ORDERED: POTASSIUM CHLORIDE 10% LIQ 20 MEQ/15 ML UDC PO ONE (23:30)
--- NOTE | 2017-07-13 00:30 | IPN ---
DATE: 07/12/2017 SUBJECTIVE: The patient is seen this morning out of bed to the chair. He is in better spirits as compared to yesterday. He had minimal urine output in the past 24 hours, only 350 mL, despite increased dose of Lasix. He reports he slept easily last night. REVIEW OF SYSTEMS: Positive for dyspnea on exertion, lower extremity edema. Negative for chest pain, palpitations, nausea, vomiting, diarrhea, abdominal pain. Remainder of review of systems is negative. VITAL SIGNS: Temperature 97.0, pulse 67, respiratory rate 18, blood pressure 120/56, saturating 96% on 2 liters nasal cannula. INTAKE AND OUTPUT: Urine output yesterday 350 mL. Positive 630 mL balance. Weight on the bed scale 145 kg. PHYSICAL EXAMINATION: The patient is seen sitting out of bed to the chair. He is on nasal cannula. He is in no acute distress. GENERAL: Awake, alert, oriented times three. HEAD AND NECK: Extraocular muscles intact. Moist mucous membranes. Jugular venous distention. LUNGS: Symmetric air entry bilaterally without rales. HEART: S1, S2, irregular. Automatic implantable cardioverter defibrillator (AICD ) in left chest wall, 2+ radial pulse. 3+ pitting edema in the lower extremities. ABDOMEN: Soft, obese with abdominal wall edema. EXTREMITIES: 3+ pitting edema in the lower extremities. NEUROLOGIC: No focal deficits. PSYCHIATRIC: Appropriate mood and affect. LABORATORY: White count 7.3, hemoglobin 13.4, platelets 189. Sodium 130, potassium 4.0, bicarbonate 31, creatinine 2.7, magnesium 2.0. IMAGING: CT abdomen and pelvis with oral contrast: There is a nonobstructive 5 mm calculus in the right kidney. No hydronephrosis. No adenopathy or ascites. INPATIENT MEDICATIONS: The patient was started by myself today on 5 mcg per kg dopamine infusion. He continues on furosemide 80 IV every 8 hours. He received a one-time dose of Diuril. He received potassium supplementation. Remainder of medications are unchanged from prior. ASSESSMENT AND PLAN: A 71-year-old male with decompensation of severe systolic congestive heart failure with significant peripheral edema and concomitant acute on chronic renal failure. 1. Acute kidney injury on chronic kidney disease stage III secondary to cardiorenal syndrome, recent contrast exposure and likely hemodynamically- mediated tubular injury. I discussed with the patient at the bedside today regarding options for treatment of his decompensated heart failure. It is unlikely that diuretics alone would be able to relieve him of his significant volume retention. Diuretics in the current setting of decompensated heart failure would likely lead to worsening of cardiorenal syndrome and further deterioration in glomerular filtration rate (GFR). He would likely need either dialysis for volume removal or inotropic support with augmentation of renal perfusion. There is an increased propensity for tachyarrhythmia with inotrope, which I discussed with the patient. He has been having beats of nonsustained ventricular tachycardia (v tach). He has never experienced a defibrillator shock. He wishes to avoid dialysis. At this time, we will try a low dose infusion of dopamine 3-5 mcg per kilogram per hour in hopes of augmentation his diuresis. We will keep a close watch on his electrolytes to keep the potassium above 4 and the magnesium above 2. 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 He remains on amiodarone. 2. Severe systolic congestive heart failure. Ejection fraction 10%. After his acute issues resolve, the patient would benefit from evaluation by advanced heart failure services. He may benefit from home inotrope support. He otherwise has an overall poor prognosis given his advanced cardiomyopathy. We will continue the patient on intravenous Lasix and add a one-time dose of IV Diuril. If he develops hypokalemic metabolic alkalosis due to significant diuresis, then we will discontinue the spironolactone and replace it with amiloride. Plan of care is discussed with Dr. Harp and Dr. Biswas. [facility]ITAL[facility]elly
[2017-07-13 04:04] VITALS: BP 105/69
[2017-07-13] MEDS: ISOSORBIDE DIN (ISORDIL) 10 MG TAB PO SCH ×3 (05:11→21:12)
[2017-07-13] MEDS: FUROSEMIDE 100 MG/10 ML VIAL (J1940) IV SCH ×2 (05:12→06:26)
[2017-07-13] MEDS: ACETAMINOPHEN 650MG ER TAB (TYLENOL ARTHRITIS) PO SCH ×3 (05:12→21:10)
[2017-07-13] MEDS: SLF 3 ML SYR IV SCH ×3 (05:12→21:12)
[2017-07-13 05:42] LABS: MEAN CORPUSCULAR HEMOGLOBIN 27.1 pg (27.0-33.0); MEAN CORPUSCULAR HGB CONC 32.5 g/dl (32.0-36.5); MEAN CORPUSCULAR VOLUME 83.5 fl (80.0-96.0); RED CELL DISTRIBUTION WIDTH 14.6 % (11.5-14.5); WHITE BLOOD COUNT 7.9 10^3/uL (4.0-10.0)
[2017-07-13 05:56] LABS: CALCIUM LEVEL 8.5 MG/DL (8.8-10.2); CREATININE FOR GFR 2.23 MG/DL (0.70-1.30); GLOMERULAR FILTRATION RATE 37.7 (>42)
[2017-07-13 06:24] VITALS: BP 118/77
[2017-07-13] MEDS: HumaLOG INSULIN (NovoLOG) PER UNIT SC SCH ×3 (07:47→17:00)
[2017-07-13 08:00] VITALS: BP_SYST 122; BP_SYST 148; BP_DIAS 80; BP_DIAS 91
[2017-07-13] MEDS: CARVedilol 12.5 MG TAB PO SCH ×2 (09:13→21:16)
[2017-07-13] MEDS: AMIODARONE 200 MG TAB (PACERONE) PO SCH ×2 (09:13→21:10)
[2017-07-13] MEDS: aMILoride 5 MG TAB PO SCH (09:13)
[2017-07-13] MEDS: APIXABAN 5 MG TAB (ELIQUIS) PO SCH ×2 (09:14→21:11)
[2017-07-13] MEDS: **hydrALAZINE** 10 MG TAB PO SCH ×3 (09:14→21:11)
[2017-07-13] MEDS: SENOKOT S TAB PO SCH ×2 (09:14→21:12)
[2017-07-13] MEDS: ASPIRIN 81 MG ENTERIC TAB PO SCH (09:14)
[2017-07-13] MEDS: PANTOPRAZOLE 40MG TAB (PROTONIX) PO SCH (09:14)
[2017-07-13] MEDS: FLUTICASONE PROP 0.05% NASAL SPRAY 16 GM (FLONASE) SCH (09:15)
[2017-07-13] MEDS ORDERED: POTASSIUM CHLORIDE 10% LIQ 20 MEQ/15 ML UDC PO ONE (10:00)
[2017-07-13 12:00] VITALS: BP 113/73
[2017-07-13] MEDS: AcetaZOLAMIDE 250 MG TAB PO SCH (12:23)
[2017-07-13] MEDS: DOPamine HCL 800 MG in APPROPRIATE DILUENT 1 EA IV SCH (12:25)
[2017-07-13] MEDS: FUROSEMIDE injection 250 MG in D5W 225 ML IV SCH (12:26)
--- NOTE | 2017-07-13 15:09 | IPN ---
DATE: 07/13/2017 Patient seen and examined at the bedside. Chart has been reviewed. Patient states that his shortness of breath is improving. He continues to complain of bilateral lower quadrant abdominal discomfort. CT of the abdomen and pelvis is unremarkable. Ultrasound of the abdomen shows no ascites. The patient had about 10 to 11 beats of nonsustained ventricular tachycardia around 5:00 p.m. yesterday. He is continued on dopamine with great diuresis. Output of 4.5 liters and current weight is 143.6 kg. VITAL SIGNS: Temperature 96.7, pulse 68, respiratory rate 18, blood pressure 118/77, 95% on 2 liters nasal cannula. Input 1990, output 4525, negative 2535. Current weight is 143.6 kg. Urine output of 4.375 liters. GENERAL: The patient is awake, alert, oriented times three. Answering questions appropriately. Positive jugular venous distention. LUNGS: Diminished but clear to auscultation. AICD noted in left anterior chest. HEART: S1, S2, irregularly irregular. ABDOMEN: Soft. Positive bowel sounds times four quadrants with some tenderness in bilateral lower quadrants. Abdominal wall edema. Extremities: 3+ pitting edema to the sacrum. Laboratory data, imaging studies have been reviewed. ASSESSMENT AND PLAN: This is a 71-year-old male from [place] who recently moved to the area, history of congestive heart failure (CHF), ejection fraction of 10%, chronic kidney disease stage III, atrial fibrillation on chronic Eliquis, automated implantable cardioverter-defibrillator (AICD), diabetes, hypertension, bilateral lower extremity ulcers admitted for worsening shortness of breath, admitted for treatment of acute congestive heart failure exacerbation, systolic and diastolic dysfunction, and acute on chronic renal failure requiring low dose dopamine for diuresis. CURRENT ISSUES: 1. 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 Currently on amiloride, hydralazine, Lasix, isosorbide, amiodarone, Coreg and aspirin. Defer diuresis to Dr. Ferreira. The patient has required low dose dopamine at 15 mL per hour due to low blood pressure. The patient appears to be doing well with output of 4.3 liters over the past 24 hours and clinical improvement. 2. Acute on chronic renal failure due to congestive heart failure (CHF) and diuresis, improving back to baseline on dopamine drip and improved fluid overload. Avoid nephrotoxins. Renally dose all medications, managed by Dr. Ferreira, yacht captain. 3. Nonsustained ventricular tachycardia, AICD, EF of 10%, with severe systolic dysfunction. Currently on amiodarone and Coreg. Despite these two medications, the patient did have ten runs of nonsustained ventricular tachycardia yesterday. Asymptomatic with vitals being stable. 4. Chronic atrial fibrillation, rate controlled on Coreg and anticoagulated with Eliquis.
[2017-07-13 16:00] VITALS: BP 106/76
[2017-07-13 18:20] LABS: CALCIUM LEVEL 8.5 MG/DL (8.8-10.2); GLOMERULAR FILTRATION RATE 42.7 (>42); MAGNESIUM LEVEL 2.1 MG/DL (1.8-2.4); POTASSIUM SERUM 4.5 MEQ/L (3.5-5.1)
[2017-07-13 20:00] VITALS: BP 123/83
[2017-07-14] VITALS (11 sets, daily range): BP systolic 94–126; BP diastolic 52–81; O2SAT 99
[2017-07-14 05:43] LABS: MEAN CORPUSCULAR HEMOGLOBIN 27.5 pg (27.0-33.0); MEAN CORPUSCULAR HGB CONC 32.8 g/dl (32.0-36.5); MEAN CORPUSCULAR VOLUME 83.8 fl (80.0-96.0); RED CELL DISTRIBUTION WIDTH 14.6 % (11.5-14.5); WHITE BLOOD COUNT 6.5 10^3/uL (4.0-10.0)
[2017-07-14] MEDS: ACETAMINOPHEN 650MG ER TAB (TYLENOL ARTHRITIS) PO SCH ×3 (05:47→21:09)
[2017-07-14] MEDS: ISOSORBIDE DIN (ISORDIL) 10 MG TAB PO SCH ×3 (05:47→22:17)
[2017-07-14] MEDS: SLF 3 ML SYR IV SCH ×3 (05:48→21:02)
[2017-07-14 05:57] LABS: CALCIUM LEVEL 9.3 MG/DL (8.8-10.2); CREATININE FOR GFR 1.85 MG/DL (0.70-1.30); GLOMERULAR FILTRATION RATE 46.7 (>42); POTASSIUM SERUM 4.2 MEQ/L (3.5-5.1)
[2017-07-14] MEDS: HumaLOG INSULIN (NovoLOG) PER UNIT SC SCH ×3 (07:30→17:02)
[2017-07-14] MEDS: ceFAZolin 1GM INJ (J0690) IM SCH ×3 (07:39→20:55)
[2017-07-14] MEDS: PANTOPRAZOLE 40MG TAB (PROTONIX) PO SCH (08:57)
[2017-07-14] MEDS: aMILoride 5 MG TAB PO SCH (08:57)
[2017-07-14] MEDS: AcetaZOLAMIDE 250 MG TAB PO SCH (08:57)
[2017-07-14] MEDS: APIXABAN 5 MG TAB (ELIQUIS) PO SCH ×2 (08:57→20:55)
[2017-07-14] MEDS: ASPIRIN 81 MG ENTERIC TAB PO SCH (08:58)
[2017-07-14] MEDS: SENOKOT S TAB PO SCH ×2 (08:58→20:55)
[2017-07-14] MEDS: **hydrALAZINE** 10 MG TAB PO SCH ×3 (08:59→22:16)
[2017-07-14] MEDS: AMIODARONE 200 MG TAB (PACERONE) PO SCH ×2 (09:00→20:55)
[2017-07-14] MEDS: CARVedilol 12.5 MG TAB PO SCH ×2 (09:00→21:04)
[2017-07-14] MEDS: FLUTICASONE PROP 0.05% NASAL SPRAY 16 GM (FLONASE) SCH (09:00)
[2017-07-14] MEDS ORDERED: POTASSIUM CHLORIDE 10 MEQ SR TABLET PO ONE (11:15)
--- NOTE | 2017-07-14 11:38 | IPN ---
DATE OF SERVICE: 07/13/2017 Mr. Blas Vargas was seen earlier today, he was sitting in the chair in no acute distress at rest. He stated that he thinks he feels better. When I saw him, he had no orthopnea and he denies any palpitations. He has not been ambulating much. There is no report of bleeding. He denies any cough or hemoptysis. It seemed that he was started yesterday on dobutamine to increase his diuresis. He also was started on 07/08/[address] Biswas because of nonsustained ventricular tachycardia. He has a history of left ventricular systolic dysfunction which he was told that it is related to rapid heart rate. He has an automatic implantable cardioverter-defibrillator (AICD). He has recently moved to the area from [place]. PHYSICAL EXAMINATION: Patient is alert and oriented, in no acute distress at rest. His vital signs when I saw him revealed a blood pressure of 113/73 with a pulse of 68, respirations 16, and his maximum temperature was 97.1 degrees Fahrenheit with an oxygen saturation of 96% on 2 liters nasal cannula. For 07/12/2017, he had a negative fluid balance of 2.5 liters. His weight today is 143.6 kg and on 07/11/2017, it was 145 kg. Examination of the head: Atraumatic. Neck is supple. I could not appreciate any carotid bruits and no jugular venous distention (JVD) while sitting on the chair. The lungs revealed minimal crackles at the bases, but no wheezing. The heart examination revealed regular heart sounds without gallops. The point of maximal impulse (PMI) is displaced inferiorly and laterally. There is no rub. Abdomen is soft, obese and nontender. Extremities reveal +2 to +3 bilateral lower leg edema. Neurological examination grossly is negative for focal deficit. LABORATORIES: BMP done this morning revealed a sodium of 132, potassium 4.0, chloride 90, CO2 35, BUN 50, creatinine 2.3, GFR 37.7, and fasting glucose 151, with a calcium of 8.5. Serum magnesium is 2.0. CBC revealed a WBC of 7.9, hemoglobin 13.8, hematocrit 42.5, and platelets 191,000. IMPRESSION: 1. Decompensated congestive heart failure, acute on chronic secondary to severe left ventricular systolic dysfunction. 2. Atrial fibrillation, chronic and persistent. 3. Nonsustained ventricular tachycardia. 4. History of automatic implantable cardioverter-defibrillator (AICD) implantation. 5. Acute on chronic kidney disease. 6. History of hypertension. 7. Hyperlipidemia. 8. Diabetes mellitus. Mr. Blas Vargas seems to be stable from a cardiac point of view, but his prognosis is guarded in view of his diagnostic and his comorbid condition. He appears to be stable and his symptoms have improved, as well as his pedal edema. He is now passing more urine on current combination, but I am concerned about the dobutamine. If he starts again having ventricular tachycardia, it should be discontinued. We should monitor closely his blood urea nitrogen (BUN), creatinine and serum potassium. He is not on angiotensin-converting enzyme (QUINTEN ) inhibitor or ARB for unknown reason and if his renal function continues to improve, he should be given a trial of Entresto. In the meantime, he will continue with the hydralazine and the limiting nitrate. He will also will benefit from spironolactone if his kidney function continues to improve. It was a pleasure to participate in the care of Mr. Blas Vargas for his underlying cardiac condition. I will continue to monitor along with you while in the hospital and as outpatient if needed. Please do not hesitate to call if any questions. CHAD
--- NOTE | 2017-07-14 11:38 | IPN ---
DATE OF SERVICE: 07/13/2017 SUBJECTIVE: The patient is seen this morning at the bedside. He denies any complaints. He did have an episode of emesis overnight. On telemetry, he had 11 beats of nonsustained ventricular tachycardia (V-TACH) yesterday, which is not significantly changed from prior. He is diuresing very well on current diuretic regimen with concomitant infusion of dopamine. REVIEW OF SYSTEMS: Negative for headache, dizziness, lightheadedness, chest pain, palpitations, shortness of breath, nausea, vomiting, diarrhea. Review of systems positive for bilateral lower quadrant cramping. Remainder of review of systems is negative. VITAL SIGNS: Temperature 97.1, pulse 68, respiratory rate 16, blood pressure 113/73, saturating 96% on 2 liters nasal cannula. Intake and output: Urine output 4375 mL. Oral intake 1990 mL. Weight on the bed scale today 143.6 kg. PHYSICAL EXAMINATION: The patient is out of bed to the chair, comfortable, in good spirits, no acute distress, awake, alert, oriented times three. HEAD AND NECK: Extraocular muscles are intact. Tongue is moist. His neck veins are prominent. CARDIAC: S1, S2. 2+ radial pulse. 3+ pitting edema in the lower extremities. LUNGS: Clear to auscultation bilaterally without crackle or rale. He has an automatic implantable cardioverter-defibrillator (AICD) in the left chest. ABDOMEN: Soft, obese, with abdominal wall edema. GENITOURINARY: No catheter. PSYCHIATRIC: Appropriate mood and affect. NEUROLOGIC: No focal deficits. LABORATORIES: White count 7.9, hemoglobin 13.8, platelets 191. Sodium 132, potassium 4.5, bicarbonate 35, BUN 48, creatinine 2.0, calcium 8.5, magnesium 2.1. INPATIENT MEDICATIONS: The patient is placed on a Lasix drip by myself at 7 mg an hour today. He is also started on Diamox 250 mg by mouth daily. He continues on dopamine low-dose infusion at 3 mcg/kg/h. He received potassium replacement. His other medications are unchanged from prior. ASSESSMENT AND PLAN: 1. Acute kidney injury (CHARLIE) on chronic kidney disease (CKD) stage III secondary to cardiorenal syndrome, recent contrast exposure in the setting of severely decompensated congestive heart failure with ejection fraction of 10%. The patient is doing well on dopamine infusion at this time. I have reduced the rate from 5 mcg/kg/h down to 3 mcg/kg/h. He has not had any more significant runs of nonsustained ventricular tachycardia (V-TACH) at present than he had prior to inotrope initiation. As he is diuresing vigorously, I am checking his electrolytes every 12 in order to replenish his magnesium and his potassium. Today he is switched over to a Lasix drip at 7 mg an hour and will start on oral Diamox as he is becoming alkalotic. In lieu of spironolactone, I have placed him on amiloride to ameliorate his hypokalemic metabolic alkalosis. I am managing the patient's diuretics and inotrope support. His vasodilatory regimen is as per Dr. Biswas. His renal function is improving with diuresis. 2. Severe systolic congestive heart failure (CHF), ejection fraction 10%, status post automatic implantable cardioverter-defibrillator (AICD). Given his severe heart failure and moderate underlying chronic kidney disease, patient is at high risk for recurrent decompensations of heart failure and hypervolemia in the future and he would benefit from evaluation by advanced heart failure services once his acute issues resolve. He otherwise has a very poor prognosis. [facility]
--- NOTE | 2017-07-14 11:39 | IPN ---
DATE OF SERVICE: 07/14/2017 Patient seen and examined at the bedside. Chart has been reviewed. Patient still complains of suprapubic pain. Urine culture on 07/12/2017 shows proteus. Patient has been started on intravenous (IV) antibiotics. This morning, patient is diuresing well with net negative 1.1 liters yesterday on Lasix drip as well as dopamine drip. Patient has occasional nonsustained ventricular tachycardia (V-tach), premature ventricular contractions (PVCs) with normal potassium and magnesium. He currently denies any chest pain, pressure or tightness,. Shortness of breath has significantly improved since admission. No complaints of nausea or vomiting, but complains of suprapubic and bilateral lower quadrant pain. CT abdomen and pelvis is negative. Urinalysis (UA) was positive for proteus. Temperature 97.9, pulse 77, respiratory rate 19, blood pressure 126/81, 97% on 2 liters nasal cannula. Generally, patient is awake, alert, oriented times three. Answers questions appropriately. Neck is supple, full range of motion. Remote jugular venous distention. Lungs diminished to auscultation. Crackles at the bases. Heart: S1, S2, irregularly irregular. Abdomen is obese, soft, tender in the suprapubic area. Extremities 2+ pitting edema to the sacrum. Laboratory data, imaging studies have been reviewed. ASSESSMENT AND PLAN: This is a 71-year-old male from [place] recently moved to the [facility] to be with his daughter with history of congestive heart failure (CHF), systolic and diastolic dysfunction, ejection fraction (EF) of 10%, chronic kidney disease stage III, atrial fibrillation on chronic Eliquis, automated implantable cardioverter-defibrillator (AICD), diabetes, hypertension, bilateral lower extremity ulcers, admitted due to worsening shortness of breath, for acute congestive heart failure (CHF) exacerbation, abdomen acute on chronic renal failure requiring low dose dopamine for diuresis. During this admission, patient has also complained of bilateral lower quadrant suprapubic pain and found to have proteus urinary tract infection (UTI). ACUTE ISSUES: 1. Acute exacerbation of CHF, systolic/diastolic dysfunction, EF of 10%. Currently on amiloride, hydralazine, Lasix IV drip, and low dose dopamine, managed by Dr. Andrzej Ferreira, web development intern, amiodarone and Coreg and aspirin. Patient has the dopamine drip due to low blood pressure. He has been diuresing well and has remained net negative for the past few days. Significant improvement in shortness of breath but still with 3+ pitting edema. 2. Acute on chronic renal failure due to CHF and diuresis. Improving back to baseline on dopamine drip as well as Lasix drip managed by Dr. Andrzej Ferreira. Renally dose all medications. Avoid nephrotoxins. 3. Proteus urinary tract infection present on admission. Patient complains of bilateral lower quadrant discomfort and suprapubic pain with proteus found in the urine. He has had no fever. Will treat with IV ceftriaxone for now. No recent history of Glass catheters. 4. Nonsustained ventricular tachycardia, AICD, EF 10%, with severe systolic dysfunction. Currently on amiodarone and Coreg. He is asymptomatic with vital signs stable. 5. Chronic atrial fibrillation. Rate controlled on Coreg, anticoagulated with chronic Eliquis.
[2017-07-14] MEDS: FUROSEMIDE injection 250 MG in D5W 225 ML IV SCH (11:46)
--- NOTE | 2017-07-14 13:14 | IPN ---
DATE: 07/14/2017 AGE: 71 Mr. Blas Vargas was seen earlier this morning. He was in bed in no acute distress at rest. He denies any chest pain, palpitations, dizziness, orthopnea. He is not walking much. He denies any cough or hemoptysis. There is no report of bleeding. There is no focal manifestation. He appears to be stronger today when compared with yesterday when I saw him. PHYSICAL EXAMINATION: The patient is alert and oriented. In no acute distress at rest. His last vital signs this morning reveal a blood pressure of 114/74 with a pulse of 75, respirations 20, and his maximum temperature is 97.5 degrees Fahrenheit with an oxygen saturation of 94% on 2 liters nasal cannula. He has a negative fluid balance of 1.199 liters on 07/13/2017. His weight is up today by 3 kg but probably artifactual. Examination of the head is normocephalic, atraumatic. Neck is supple. No jugular venous distention (JVD) appreciated or carotid bruits. The lungs are clear bilaterally without any wheezing or crackles. Heart examination revealed normal S1, S2 without gallops. The point of maximum impulse (PMI) is displaced inferiorly and laterally. There is no rub. There is a systolic murmur grade 1 to 2/6 at the lower left sternal border without any significant radiation. Abdomen is obese, protuberant. Extremities revealed +2 bilateral lower leg edema. Neurological examination was negative for focal deficit. LABORATORY DATA: CBC done today revealed a WBC of 6.5, hemoglobin 13.7, hematocrit 41.8, and platelets 174,000. BMP revealed a sodium of 132, potassium 4.2, chloride 93, CO2 of 33, BUN 45, creatinine 1.85, GFR 46.7, fasting glucose 161, calcium 9.3. Serum magnesium is 2.0. IMPRESSION: 1. Decompensated congestive heart failure (CHF), acute on chronic, improving, secondary to left ventricular systolic dysfunction. 2. Atrial fibrillation, chronic and persistent. 3. History of AICD implantation. 4. Nonsustained ventricular tachycardia. 5. History of hypertension, hyperlipidemia, diabetes mellitus. 6. Acute coronary injury on chronic kidney disease, improving. 7. Hyponatremia. Mr. Blas Vargas seems to be stable from a cardiac point of view and slowly improving. We will continue current medications for now, but I am concerned about the dopamine, even at the small dose, in view of his history of cardiomyopathy, high risk for ventricular tachycardia. So far, it seems that he has been tolerating it well. His kidney function continue to improve, and if he remains stable, as an outpatient, his cardiac medications will be readjusted. As mentioned in my note on 07/13/2017, he may benefit from Juan or an QUINTEN inhibitor or an ARB. He is also continued on spironolactone. For now, I will continue current medications. Tomorrow he will be seen by Dr. Biswas. [facility]
[2017-07-14 18:35] LABS: ALBUMIN 3.1 GM/DL (3.2-5.2); ALBUMIN/GLOBULIN RATIO 0.76 (1.00-1.93); CALCIUM LEVEL 9.2 MG/DL (8.8-10.2); CREATININE FOR GFR 1.91 MG/DL (0.70-1.30); MAGNESIUM LEVEL 1.9 MG/DL (1.8-2.4); POTASSIUM SERUM 4.1 MEQ/L (3.5-5.1); TOTAL PROTEIN 7.2 GM/DL (6.4-8.2)
[2017-07-14] MEDS ORDERED: MAG SULF 1GM/100ML (MAG RUN) 1 GM in APPROPRIATE DILUENT 1 EA IV ONE (19:00)
[2017-07-15] VITALS (13 sets, daily range): BP systolic 98–112; BP diastolic 68–80; O2SAT 97–99
[2017-07-15] MEDS: ceFAZolin 1GM INJ (J0690) IM SCH (05:41)
[2017-07-15] MEDS: ACETAMINOPHEN 650MG ER TAB (TYLENOL ARTHRITIS) PO SCH ×3 (05:41→21:50)
[2017-07-15] MEDS: ISOSORBIDE DIN (ISORDIL) 10 MG TAB PO SCH ×3 (05:44→21:50)
[2017-07-15] MEDS: SLF 3 ML SYR IV SCH ×3 (05:49→21:51)
--- NOTE | 2017-07-15 07:51 | IPN ---
DATE: 07/15/2017 Mr. Vargas had over the weekend infusion of dopamine. It actually seemed to have helped considerably. He made better urine output, but unfortunately last night had multiple runs of nonsustained ventricular tachycardia including the longest one which was 15 beats at [address] point [address] Rodriguez discontinued both dopamine infusion as well as furosemide drip. The patient was asymptomatic throughout these. This morning, he tells me he is feeling better. He feels that his breathing has improved. There was no paroxysmal nocturnal dyspnea (PND) and no chest pain and no sensation of palpitations. Blood pressure is 108/71. Heart rate has been in 70s to 80s. He is afebrile. Saturation is 97% on 2 liters of oxygen by nasal cannula. Fluid balance yesterday was documented as 3300 negative. Weight this morning is 139 kg. He is alert and oriented and appropriate. His jugular venous pulse (JVP) is still very high. Lungs are relatively clear to auscultation even though there are some scattered crackles and lungs sound at least slightly diminished over the bases. Heart exam reveals somewhat muffled heart sounds, but irregularly irregular rhythm. There is still a murmur suggestive of MR and TR and I do not appreciate gallop. Abdomen is obese, but soft. There is still about two to 3+ edema all the way to the abdominal wall, at least in the morning. No laboratories were drawn this morning, but last night his potassium was 4.1, BUN 42, creatinine 1.90, for GFR of 45. ASSESSMENT/PLAN: Mr. 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 He has severe left ventricle (LV) systolic dysfunction with ejection fraction (EF) estimated only in the neighborhood of 10%. Unfortunately, we have been struggling with attempts to accomplish some diuresis. With infusion of dopamine over the weekend he managed to diurese some, but unfortunately it was stopped last night because of runs of nonsustained ventricular tachycardia getting more frequent, this is in spite of him getting amiodarone. At this point, I am going to restart him on furosemide 80 mg every 8 hours. I appreciate the assistance of nephrology regarding potential co-administration of additional diuretics. I ordered the blood work to be drawn now. He is already on vasodilating isosorbide and hydralazine combination and his blood pressure is soft, so consequently I do not believe we can increase the dose further. His condition is certainly guarded at best. This is truly advanced congestive heart failure and even though some progress was made I think we are far from euvolemic status. MTDD
[2017-07-15] MEDS: FUROSEMIDE 100 MG/10 ML VIAL (J1940) IV SCH ×2 (08:00→17:09)
[2017-07-15] MEDS: **hydrALAZINE** 10 MG TAB PO SCH ×3 (08:26→21:00)
[2017-07-15] MEDS: HumaLOG INSULIN (NovoLOG) PER UNIT SC SCH ×3 (08:26→17:09)
[2017-07-15] MEDS ORDERED: MAG SULF 1GM/100ML (MAG RUN) 1 GM in APPROPRIATE DILUENT 1 EA IV ONE (08:30)
[2017-07-15] MEDS: CARVedilol 12.5 MG TAB PO SCH ×2 (09:00→21:48)
[2017-07-15] MEDS: SENOKOT S TAB PO SCH ×2 (09:07→21:50)
[2017-07-15] MEDS: APIXABAN 5 MG TAB (ELIQUIS) PO SCH ×2 (09:07→21:48)
[2017-07-15] MEDS: ASPIRIN 81 MG ENTERIC TAB PO SCH (09:07)
[2017-07-15] MEDS: PANTOPRAZOLE 40MG TAB (PROTONIX) PO SCH (09:07)
[2017-07-15] MEDS: FLUTICASONE PROP 0.05% NASAL SPRAY 16 GM (FLONASE) SCH (09:10)
--- NOTE | 2017-07-15 09:42 | IPN ---
DATE OF SERVICE: 07/14/2017 SUBJECTIVE: The patient is seen this morning at the bedside. He has no complaints. He had a positive urine culture and is started on IV antibiotics. He continues on Lasix and dopamine drip. He had about 4 beats of nonsustained ventricular tachycardia (NSVT) overnight and was otherwise asymptomatic. She denies any shortness of breath. REVIEW OF SYSTEMS: Negative for headache, dizziness, palpitations, chest pain, shortness of breath, nausea, vomiting, diarrhea. Remainder of review of systems is negative. VITAL SIGNS: Temperature 97.1, pulse 74, blood pressure 120/72, saturating 100% on 2 liters nasal cannula. INTAKE AND OUTPUT: Urine output yesterday was 3775 mL, net negative 1200 mL. PHYSICAL EXAMINATION: The patient is seen eating. He is awake, alerted, oriented times three, in no acute distress. Extraocular muscles are intact. Neck is supple with JVD Lungs have symmetric air entry which is diminished at the base. Heart: S1, S2, irregular. Abdomen is soft, obese, nontender. bowel sounds present Extremities have 3+ pitting edema present to the hip. Neurologic: No focal deficit. Oriented X 4 Psychiatric: Appropriate mood and affect. LABS: White count 6.5, hemoglobin 13.7 and platelets 174. Sodium 131, potassium 4.1, bicarbonate 32, BUN 42, creatinine 1.9, magnesium 1.9. MICROBIOLOGY: Urine culture with Proteus. INPATIENT MEDICATIONS: - The patient received a one time dose of magnesium. He is started on cefazolin 1 gram every eight. His other medications are unchanged from prior. ASSESSMENT AND PLAN: 1. Acute kidney injury (CHARLIE) on chronic kidney disease (CKD) Stage III secondary to cardiorenal syndrome and recent contrast exposure in the setting of severely decompensated congestive heart failure (CHF) with ejection fraction of 10%. The patient's renal function is returning close to baseline and I plan to discontinue the dopamine infusion within the next 24 hours. We will continue him on a Lasix drip and he continues on Diamox and amiloride. 2. Severe systolic heart failure, ejection fraction 10%, status post automatic implantable cardioverter-defibrillator (AICD). The patient is at high risk for recurrent decompensations and has a very poor prognosis. He would benefit from evaluation by advanced heart failure services. I recommend transfer to [facility] for evaluation for home inotrope support or for left ventricular assist device or as deemed appropriate by heart failure specialist. MTDD
[2017-07-15] MEDS: AMIODARONE 200 MG TAB (PACERONE) PO SCH ×2 (09:47→21:49)
[2017-07-15 10:39] LABS: CALCIUM LEVEL 8.7 MG/DL (8.8-10.2); CREATININE FOR GFR 1.87 MG/DL (0.70-1.30); GLOMERULAR FILTRATION RATE 46.2 (>42); MAGNESIUM LEVEL 2.6 MG/DL (1.8-2.4)
--- NOTE | 2017-07-15 12:36 | IPN ---
DATE: 07/15/2017 SUBJECTIVE: Patient seen and examined at the bedside. Chart has been reviewed. Patient had been complaining of suprapubic pain and had been started on IV ceftriaxone for Proteus in the urine. CT of abdomen and pelvis showed no ascites. The patient has been diuresing well on Lasix 80 mg every 8 hours. Dopamine has been discontinued. Blood pressure has been well maintained. Systolic pressure 108 to 112. Saturating 97% on 2 liters nasal cannula. He currently denies any chest pain, pressure or tightness, nausea, vomiting, epigastric pain. He still has some suprapubic discomfort, but currently states breathing is improved and lower extremity edema has improved. Input and Output: 2030 input, output 5400, negative 3370. Current weight is 139 kg with peak weight of 148.4, kg. Generally, patient is awake, alert, oriented times three. Anicteric sclerae. No jaundice. Pupils round and reactive to light and accommodation. Extraocular muscles are intact. Normocephalic, atraumatic. No cervical lymphadenopathy. No thyromegaly. Positive jugular venous distention. Lungs diminished breath sounds with crackles bilateral bases. Heart: S1, S2, irregularly irregular. Abdomen is obese, soft, nontender. Protuberant. Extremities 3+ pitting edema to the sacrum. CBC and metabolic panel have been reviewed. ASSESSMENT AND PLAN: This is a 71-year-old male from [place] who recently moved to the [facility] to be with his daughter with history of congestive heart failure (CHF), systolic and diastolic dysfunction, ejection fraction (EF) of 10%, chronic kidney disease stage III, atrial fibrillation on chronic Eliquis with tachycardia mediated cardiomyopathy, automated implantable cardioverter-defibrillator (AICD), diabetes, hypertension, bilateral lower extremity ulcers, admitted for worsening shortness of breath and treated for acute on chronic congestive heart failure (CHF) exacerbation. The patient had complained of abdominal and suprapubic pain and found to have Proteus urinary tract infection (UTI). He is also worsened with his chronic kidney disease Stage III and had required low dose dopamine due to low blood pressure to increase diuresis. CURRENT ISSUES: 1. Acute exacerbation of CHF, systolic/diastolic dysfunction, EF of 10%. Thought to be secondary to tachycardia mediated cardiomyopathy. Currently on Lasix intravenous every 8 hours, status post Lasix drip and dopamine, amiloride, and hydralazine, managed by Dr. Biswas and Dr. Andrzej Ferreira, per diem. He has had episodes of nonsustained ventricular tachycardia on the monitor and has been treated with amiodarone and Coreg. He is on aspirin and has been diuresing well and net negative, but still with 3+ pitting edema, but improvement in his shortness of breath. The patient's dopamine drip was discontinued last night due to increasing frequency of nonsustained ventricular tachycardia. 2. Hypertension. Currently on isosorbide, hydralazine and Coreg. 3. Nonsustained ventricular tachycardia, AICD, EF of 10%, with severe systolic dysfunction. Most likely very advanced as patient is continually having nonsustained ventricular tachycardia on telemetry despite amiodarone 400 twice a day and Coreg 25 twice a day. Defer to Dr. Biswas for adjustment of amiodarone. 4. Hyponatremia secondary to congestive heart failure. Poor prognostic factor. 5. Acute on chronic renal failure Stage III, currently managed by per diem, Dr. Ferreira. 6. Proteus UTI. Currently on IV ceftriaxone. This was present at admission with patient complaining of abdominal pain. The patient had not had any instrumentation or Glass catheter during this admission. 7. Chronic atrial fibrillation, on Coreg. Anticoagulated with Eliquis. [facility]
[2017-07-15] MEDS: aMILoride 5 MG TAB PO SCH (13:10)
[2017-07-15] MEDS ORDERED: ceFAZolin 1GM INJ (J0690) IV SCH (14:00)
[2017-07-15] MEDS: AcetaZOLAMIDE 250 MG TAB PO SCH (14:34)
--- NOTE | 2017-07-15 14:43 | REP ---
REPEAT DICTATION PORTABLE CHEST X-RAY: Single view. HISTORY: Dyspnea and cough. No comparison. FINDINGS: A unipolar pacemaker is seen in the right heart via the left subclavian vein region. EKG electrodes are noted. Cardiomegaly is observed. Pulmonary vasculature is somewhat cephalized. No infiltrate is seen. No pleural effusion noted. IMPRESSION: Cardiomegaly with pacemaker and pulmonary vascular cephalization consistent with CHF. No infiltrate or effusion seen. Signed by Leonidas Yancey MD 07/15/2017 04:44 P
[2017-07-16] VITALS (7 sets, daily range): BP systolic 93–110; BP diastolic 58–77
[2017-07-16] MEDS: FUROSEMIDE 100 MG/10 ML VIAL (J1940) IV SCH
[2017-07-16] MEDS: ISOSORBIDE DIN (ISORDIL) 10 MG TAB PO SCH ×3 (05:25→22:59)
[2017-07-16] MEDS: ACETAMINOPHEN 650MG ER TAB (TYLENOL ARTHRITIS) PO SCH ×3 (05:26→22:59)
[2017-07-16] MEDS: SLF 3 ML SYR IV SCH ×3 (05:28→22:59)
[2017-07-16 05:59] LABS: CALCIUM LEVEL 9.2 MG/DL (8.8-10.2); CREATININE FOR GFR 1.68 MG/DL (0.70-1.30); GLOMERULAR FILTRATION RATE 52.2 (>42); MAGNESIUM LEVEL 2.2 MG/DL (1.8-2.4)
--- NOTE | 2017-07-16 06:26 | IPN ---
DATE OF SERVICE: 07/15/2017 SUBJECTIVE: The patient is seen this morning at the bedside. He reports no acute complaints this morning. No shortness of breath. He has 15 beats of non-sustained ventricular tachycardia overnight and his dopamine infusion and Lasix drop were discontinued by Dr. Rodriguez. He is now on Lasix 80 mg IV every 8 hours with holding parameters for blood pressure as per Dr. Biswas. The patient was asymptomatic when he had the non-sustained ventricular tachycardia overnight. I had a discussion with him at the bedside regarding his advanced congestive heart failure. REVIEW OF SYSTEMS: Negative for shortness of breath at rest, chest pain, palpitations, nausea, vomiting, diarrhea. Review of systems positive for dyspnea on exertion. The patient requests prescription for a motorized scooter. The remainder of review of systems is negative. Temperature 96.9, pulse 69, respiratory rate 18, systolic blood pressure 85 to 102, saturating 95% on 2 liters nasal cannula. Intake and output: Urine output yesterday was 5400 mL. Weight on the bed scale today 139 kg. PHYSICAL EXAMINATION: The patient was seen in bed. She is eating breakfast. She is alert and oriented and comfortable. Extraocular muscles are intact. Mucous membranes are moist. Neck veins are prominent. Cardiac: S1, S2. Distant heart sounds. Systolic murmur. 2+ radial pulse. 3+ pitting edema up to the hip. Lungs are clear to auscultation. Abdomen: Obese and soft. Bowel sounds present Neurologic: There are no focal deficits. Psychiatric: Mood is appropriate. Positive affect. LABS: White count 6.5, hemoglobin 13.7, platelets 174. Sodium 132, potassium 4.0, bicarbonate 35, BUN 38, creatinine 1.8. INPATIENT MEDICATIONS: The patient continues on: - cefazolin 1 gram IV every 8 - acetazolamide 250 mg by mouth daily - amiloride 5 mg by mouth daily - Lasix 80 mg IV every 8 The remainder of medications are unchanged from prior. ASSESSMENT AND PLAN: 1. Decompensated heart failure with ejection fraction 10%. The patient's dopamine infusion was discontinued overnight after 15 beats of non-sustained ventricular tachycardia. Systolics have since ranges from 85 to 104. I do not expect that we will continue to be able to achieve the same kind of diuresis that we were getting with dopamine infusion and Lasix drip now that she is no longer on the inotrope support. The patient has end stage heart failure. He has a propensity towards ventricular tachyarrhythmias. He is high risk for recurrent decompensation and has an overall very poor prognosis. He would benefit from evaluation by advanced heart failure services. 2. Chronic kidney disease (CKD) stage III. The patient's renal function is currently close to his known baseline. He is at risk for recurrent cardiorenal syndrome. If systolic pressures are soft and he likely will not diurese and vigorously as he was on the dopamine infusion, however, we will continue to give Lasix pushes a trial. He has metabolic alkalosis. This will be ameliorated with Diamox and amiloride. 3. Mild hyponatremia. Continue with diuresis and monitor without further intervention at present. High dose tolvaptan can be used, however, as the patient is already on a diuretic regimen, I will hold off on tolvaptan. MTDD
[2017-07-16] MEDS ORDERED: FUROSEMIDE 40 MG/4 ML VIAL (J1940) IV SCH (08:00)
[2017-07-16] MEDS ORDERED: cefTRIAXone SOD 1 GM in D5W 50 ML IV SCH (08:00)
[2017-07-16] MEDS: HumaLOG INSULIN (NovoLOG) PER UNIT SC SCH ×3 (08:14→17:43)
[2017-07-16] MEDS: ASPIRIN 81 MG ENTERIC TAB PO SCH (08:15)
[2017-07-16] MEDS: SENOKOT S TAB PO SCH ×2 (08:15→20:09)
[2017-07-16] MEDS: APIXABAN 5 MG TAB (ELIQUIS) PO SCH ×2 (08:15→20:08)
[2017-07-16] MEDS: AMIODARONE 200 MG TAB (PACERONE) PO SCH ×2 (08:15→20:09)
[2017-07-16] MEDS: PANTOPRAZOLE 40MG TAB (PROTONIX) PO SCH (08:15)
[2017-07-16] MEDS: aMILoride 5 MG TAB PO SCH (08:16)
[2017-07-16] MEDS: **hydrALAZINE** 10 MG TAB PO SCH ×3 (08:16→20:06)
[2017-07-16] MEDS: CARVedilol 12.5 MG TAB PO SCH ×2 (08:16→20:07)
[2017-07-16] MEDS: AcetaZOLAMIDE 250 MG TAB PO SCH (08:23)
--- NOTE | 2017-07-16 08:23 | IPN ---
DATE OF SERVICE: 07/16/2017 Mr. Vargas had a decent night. He did not have PND or orthopnea. Denies any chest pain. He did not have much of arrhythmias overnight either. Blood pressure this morning is low 100/60, heart rate has been in 60s and 70s atrial fibrillation. He is afebrile. Saturation 97% on 2 liters of oxygen by nasal cannula. His fluid balance yesterday was documented at 740 negative. He made about 1850 of urine. His weight is 138.3 kg which is down since yesterday. His JVP is still high about 405 cm. Lungs are relatively clear to auscultation. Heart exam reveals muffled heart sounds with irregular rhythm and murmurs over the MR and MN not much changed. Abdomen seems to be softer but is still slightly edematous and there is still peripheral edema even though it is improving. LABORATORY: Sodium 132, potassium 4.0, BUN 34, creatinine 1.7 for GFR 52 and glucose 147. CBC: Hemoglobin 13.7, hematocrit 41.8 and platelet count 174,000. ASSESSMENT/PLAN: Mr. Vargas is a 71-year-old man who has likely nonischemic cardiomyopathy, severe LV systolic dysfunction, chronic atrial fibrillation, status post ICD. He presented with acutely exacerbated systolic congestive heart failure. It was further complicated by development of acute on chronic renal failure. Turns out that in the last few days, his renal function actually slightly improving. This is encouraging even though he is still far from euvolemic and needs to diurese much more, I am going to give him even an higher dose of diuretics today in a attempt to promote more volume loss. I spoke with him about possibility of being seen in the advanced heart failure clinic in [place] and being potentially considered a candidate for LVAD. Even though patient is open to this possibility, I remain quite concerned that he does not have social support to actually get this accomplished. He tells me that that there is no way he can have anybody driving him to [place] even though his daughter lives nearby. With improved renal function since a few days ago, I think this is not something that needs to be imminently pursued but I will get in touch with him and possibly have him seen on outpatient basis. CHAD
[2017-07-16] MEDS: FLUTICASONE PROP 0.05% NASAL SPRAY 16 GM (FLONASE) SCH (08:24)
[2017-07-16] MEDS ORDERED: POTASSIUM CHLORIDE 10 MEQ SR TABLET PO ONE ×2 (11:00→22:15)
[2017-07-16] MEDS: FUROSEMIDE injection 250 MG in D5W 225 ML IV SCH (12:26)
[2017-07-16] MEDS: cefTRIAXone SOD 1 GM in D5W 50 ML IV SCH (12:26)
--- NOTE | 2017-07-16 16:33 | IPN ---
DATE: 07/16/2017 SUBJECTIVE: Patient is seen and examined in the room today. Patient is continuing to have significant serous fluid drainage from the right lower extremity ulcer site, but clinically patient stated he feels his symptoms are improving. Patient is able to wean off the oxygen. On the telemetry, patient still has nonsustained ventricular tachycardia. OBJECTIVE: VITAL SIGNS: Temperature 97.5, pulse 70, respiratory rate 20, blood pressure 103/62, pulse oximetry 100% with two liters nasal cannula, later patient's oxygen saturation is 94% in room air. GENERAL: No sign of acute distress, morbidly obese, alert and oriented times three. HEENT: Normocephalic, atraumatic. Extraocular motors grossly intact. Positive jugular venous distention (JVD). HEART: Positive S1, S2, irregularly irregular. Positive heart murmurs. LUNGS: Very minimal crackles, more significant in the left lung base, otherwise clear to auscultation. ABDOMEN: Soft, nontender. EXTREMITIES: Positive pitting edema bilaterally. There is still some notable fluid drainage through the dressings, more significant on the right lower extremity. LABORATORY DATA: Sodium 132, potassium 4, chloride 94, carbon dioxide 32, BUN 34, creatinine 1.68, GFR 52.2, fasting glucose 147, calcium 9.2, magnesium 2.2. ASSESSMENT AND PLAN: 1. Systolic congestive heart failure exacerbation. Currently patient is receiving IV diuresis. Heel Compressor and comfort filler have been consulted to assist in patient's management, we appreciate their assistance. Patient is on Diamox 250 mg by mouth daily, amiloride 5 mg by mouth daily, Lasix IV diuresis. Patient has an ejection fraction of 10%. Previously, patient was on dopamine infusion and patient had a very good response to the diuresis. However, due to 15 beats of nonsustained ventricular tachycardia, dopamine infusion was discontinued. Patient has soft blood pressures. Patient is on 1.5 liters fluid restriction. Per patient, patient has not been very compliant with fluid restriction in the outpatient setting. 2. Nonsustained ventricular tachycardia. Patient has an automatic implantable cardioverter defibrillator (AICD). Ejection fraction (EF) of 10%. Patient is on amiodarone. 3. Chronic kidney disease stage III. Currently patient is being diuresed with Diamox, amiloride, and Lasix. We appreciate nephrology's assistance. 4. Proteus urinary tract infection (UTI). On IV Rocephin. 5. Chronic atrial fibrillation. On Coreg, amiodarone, and Eliquis. 6. Diabetes. Patient is on sliding scale and consistent carbohydrate diet. Patient is on 1.5 liters fluid restriction. 7. Deep venous thrombosis (DVT) prophylaxis on Eliquis.
[2017-07-16] MEDS ORDERED: FUROSEMIDE 100 MG/10 ML VIAL (J1940) IV SCH (18:00)
[2017-07-16 20:59] LABS: CALCIUM LEVEL 8.5 MG/DL (8.8-10.2); CREATININE FOR GFR 1.88 MG/DL (0.70-1.30); GLOMERULAR FILTRATION RATE 45.9 (>42); MAGNESIUM LEVEL 2.2 MG/DL (1.8-2.4)
[2017-07-17] VITALS (7 sets, daily range): BP systolic 98–137; BP diastolic 62–88
[2017-07-17] MEDS: cefTRIAXone SOD 1 GM in D5W 50 ML IV SCH ×2 (01:26→12:12)
[2017-07-17] MEDS: ISOSORBIDE DIN (ISORDIL) 10 MG TAB PO SCH ×3 (06:06→23:43)
[2017-07-17] MEDS: ACETAMINOPHEN 650MG ER TAB (TYLENOL ARTHRITIS) PO SCH ×3 (06:06→22:28)
[2017-07-17] MEDS: SLF 3 ML SYR IV SCH ×3 (06:06→22:28)
[2017-07-17 06:22] LABS: MEAN CORPUSCULAR HEMOGLOBIN 27.3 pg (27.0-33.0); MEAN CORPUSCULAR HGB CONC 32.3 g/dl (32.0-36.5); MEAN CORPUSCULAR VOLUME 84.7 fl (80.0-96.0); RED CELL DISTRIBUTION WIDTH 14.7 % (11.5-14.5); WHITE BLOOD COUNT 5.2 10^3/uL (4.0-10.0)
[2017-07-17 06:30] LABS: CALCIUM LEVEL 9.1 MG/DL (8.8-10.2); CREATININE FOR GFR 1.76 MG/DL (0.70-1.30); GLOMERULAR FILTRATION RATE 49.5 (>42); POTASSIUM SERUM 4.1 MEQ/L (3.5-5.1)
--- NOTE | 2017-07-17 06:52 | IPN ---
DATE OF SERVICE: 07/16/2017 SUBJECTIVE: The patient is seen this morning at the bedside. He feels well. He denies any acute complaints. No shortness of breath at rest. No chest pain. No palpitations. On telemetry, he continues to have nonsustained ventricular tachycardia, 13 beats followed by another run of 19 beats this afternoon. The patient is asymptomatic. REVIEW OF SYSTEMS: Negative for headache, dizziness, chest pain, palpitations, shortness of breath at rest, nausea, vomiting, diarrhea. Remainder of review of systems is negative. VITAL SIGNS: Temperature 97.7, pulse 72, respiratory rate 20, blood pressure 93/65, saturating 94% on room air. INTAKE AND OUTPUT: Urine output yesterday was 1850 mL. Urine output today 3.8 liters thus far. Weight on the bed scale 138.3 kg. PHYSICAL EXAMINATION: GENERAL: The patient is seen sitting out of bed to chair. Alert, oriented times four, in no acute distress. Morbidly obese. HEAD AND NECK: Extraocular muscles are intact. Neck veins with serial improvement in distention. HEART: S1, S2, irregular, defibrillator present in left chest wall. Systolic murmur. 2+ radial pulse. 2+ pitting edema in the lower extremities. LUNGS: Clear to auscultation bilaterally. Diminished at the bases. ABDOMEN: Soft. Obese. Nontender. EXTREMITIES: Pitting edema present bilaterally, has improved on serial examination. NEUROLOGIC: No focal deficits. PSYCHIATRIC: Appropriate mood and affect. LABS: Sodium 133, potassium 4.0, bicarbonate 33, BUN 35, creatinine 1.8, calcium 8.5, magnesium 2.2. INPATIENT MEDICATIONS: The patient is started by myself on a Lasix drip at 7 mg/hr. He received multiple doses of potassium orally. He is on Rocephin per the primary team. There are no other significant changes in the past 24 hours. ASSESSMENT AND PLAN: 1. Decompensation of severe systolic congestive heart failure. Yesterday, the patient only received one dose of Lasix push due to the hold parameters that were included. Today, I have switched the patient over to a Lasix drip at 7 mg/hr. He diuresed very well. I continue to check his electrolytes every 12 hours to keep a close watch on his potassium and magnesium given his vigorous diuresis and his history of nonsustained ventricular tachycardia. He is net negative almost 3 liters today. He has had increased activity on telemetry, 13 beats of ventricular tachycardia followed by a run of 19 beats of ventricular tachycardia. I will hold the Lasix drip overnight and reevaluate for resumption in the morning. Review of serial weights shows the patient has lost so far around 10 kilos of water weight on this admission. 2. Chronic kidney disease (CKD) Stage III. The patient's renal function remains fairly close to his known baseline. He is diuresing well, but has required significant sequential nephron blockade to achieve this. I am monitoring his electrolytes every 12 hours. He remains with a fairly stable metabolic alkalosis given the brisk diuresis that he has had. He continues to receive aggressive potassium supplementation. 3. Nonsustained ventricular tachycardia. The patient has never experienced a defibrillator shock. He continues on amiodarone and Coreg. Magnesium is above 2, potassium is above 4. His Lasix drip is going to be held overnight as the patient has had two runs of nonsustained ventricular tachycardia, 13 beats and 19 beats respectively. He is already net negative about 3 liters. 4. Proteus urinary tract infection (UTI), on IV Rocephin per the primary team. 5. Patient counseling. I had a lengthy discussion with Mr. Vargas today regarding his advanced heart failure and risk for recurrent decompensation. The patient is slowing getting more insight into his medical condition. Despite having an ejection fraction of 10%, he was unaware of the importance of fluid restriction and daily weights. He asked appropriate questions and seems quite motivated to actively participate more in his own care.
[2017-07-17 07:54] LABS: MAGNESIUM LEVEL 2.3 MG/DL (1.8-2.4)
--- NOTE | 2017-07-17 08:21 | IPN ---
DATE: 07/17/2017 Mr. Vargas had a good night. He did not have any paroxysmal nocturnal dyspnea (PND) or orthopnea. He does not have any chest pain. He again had runs of nonsustained ventricular tachycardia yesterday. The good news is that his urine output was very favorable. He put out almost 4 liters of urine and the balance was negative 2700. Weight is documented at 24.9, which is almost certainly inaccurate, but nevertheless we are heading in the right direction. He is alert and oriented and appropriate. Blood pressure this morning was 122/88. Heart rate has been from 60s to 80s. He remains in atrial fibrillation and is afebrile. Saturation is 95% on room air. His jugular venous pulse (JVP) is still high. Lungs are clear though with only an occasional crackle. Heart exam is unchanged with irregular rhythm and murmurs of mitral regurgitation (MR) and tricuspid regurgitation (TR). Abdomen is obese, but softer. I no longer appreciate induration of skin in the anterior abdomen. He still has 3+ edema, but his calves are certainly not as intense as they were previously. Laboratory-bynum, basic metabolic panel reveals sodium 133, potassium 4.1, BUN 33, creatinine 1.76 for a GFR of 50. Glucose is 161. CBC is essentially normal. ASSESSMENT/PLAN: Mr. Vargas is a 71-year-old -[place] man who has likely nonischemic cardiomyopathy and chronic atrial fibrillation. He has severe left ventricle (LV) systolic dysfunction with estimated ejection fraction (EF) of around 10%. He presented with acutely exacerbated systolic heart failure with concomitant acute on chronic renal failure. Initially, his renal function deteriorated which was worrisome, but in the last few days it has improved some and now remains stable in spite of fairly substantial diuresis. This is a good sign and would continue the current management. As far as the atrial fibrillation is concerned, his heart rate is controlled and he is anticoagulated. He has multiple runs of nonsustained ventricular tachycardia and for that reason I started him on amiodarone. He continues to have arrhythmias, but it is not overly surprising when we try to aggressively diurese him. He has a defibrillator in place. There was a discussion regarding transfer to [place], but at this point I do not believe he needs it. If we see deterioration of renal function or trouble with ongoing diuresis, then it can always be reopened, but in the long run unfortunately I do not believe that the patient has the social support to be a candidate for any advanced heart failure therapies.
[2017-07-17] MEDS: HumaLOG INSULIN (NovoLOG) PER UNIT SC SCH ×3 (09:16→16:36)
[2017-07-17] MEDS: CARVedilol 12.5 MG TAB PO SCH ×2 (09:17→21:00)
[2017-07-17] MEDS: **hydrALAZINE** 10 MG TAB PO SCH ×3 (09:17→21:00)
[2017-07-17] MEDS: PANTOPRAZOLE 40MG TAB (PROTONIX) PO SCH (09:17)
[2017-07-17] MEDS: APIXABAN 5 MG TAB (ELIQUIS) PO SCH ×2 (09:17→22:28)
[2017-07-17] MEDS: AMIODARONE 200 MG TAB (PACERONE) PO SCH ×2 (09:17→22:28)
[2017-07-17] MEDS: ASPIRIN 81 MG ENTERIC TAB PO SCH (09:17)
[2017-07-17] MEDS: SENOKOT S TAB PO SCH ×2 (09:18→22:28)
[2017-07-17] MEDS: FLUTICASONE PROP 0.05% NASAL SPRAY 16 GM (FLONASE) SCH (09:18)
[2017-07-17] MEDS: aMILoride 5 MG TAB PO SCH (09:31)
[2017-07-17] MEDS: AcetaZOLAMIDE 250 MG TAB PO SCH (09:31)
[2017-07-17] MEDS: FUROSEMIDE injection 250 MG in D5W 225 ML IV SCH (12:11)
--- NOTE | 2017-07-17 15:28 | IPN ---
DATE: 07/17/2017 SUBJECTIVE: The patient is seen and examined in the room today. The patient stated that he is feeling better than yesterday subjectively. He still has intermittent ventricular tachycardia on the telemetry. Yesterday, in the afternoon, the patient had a run of 13 beats of ventricular tachycardia, within a half an hour to an hour the patient had another run of 18 beats of ventricular tachycardia. During those episodes, the patient remained asymptomatic. OBJECTIVE: VITAL SIGNS: Temperature is 97.3, pulse is 90, respirations 20, blood pressure is 103/78, pulse oximetry is 95% in room air. GENERAL: No sign of acute distress, morbidly obese, alert and oriented times three. HEENT: Normocephalic, atraumatic. Extraocular motor grossly intact. Positive jugular venous distention (JVD). CARDIOVASCULAR: Positive S1, S2, irregularly irregular. Positive heart murmur. LUNGS: There are very mild crackles, mainly on the lung base, otherwise clear to auscultation bilaterally. ABDOMEN: Soft, nontender. Bowel sounds present. EXTREMITIES: Positive pitting edema bilaterally. There is still some notable fluid drainage through the dressing on the right lower extremity. LABORATORY DATA: WBC is 5.2, hemoglobin is 13.9, hematocrit 43.1, platelet count is 181. Sodium is 133, potassium 4.1, chloride is 96, carbon dioxide 31, BUN 33, creatinine is 1.76, GFR is 49.5, fasting glucose 161, calcium is 9.1, magnesium 2.3. ASSESSMENT AND PLAN: 1. Systolic congestive heart failure exacerbation. The patient has an ejection fraction (EF) of 10%. The patient has been receiving aggressive IV diuresis. The patient has been on Diamox 250 mg by mouth daily, amiloride 5 mg by mouth daily, and IV Lasix through the drip. The patient shows clinical improvement and the patient shows significant net fluid balance. A lengthy discussion with regard to the importance of fluid restriction also emphasized with the patient and the patient expressed understanding to be more compliant. 2. Nonsustained ventricular tachycardia. The patient continues to have intermittent ventricular tachycardia. Continue to monitor on the telemetry. The patient has been on amiodarone and Coreg. 3. Chronic kidney disease, stage III. Currently, the patient is being diuresed with Diamox, amiloride, and IV Lasix drip. Renal function improved in the last 24 hours and nephrology has been assisting on the case. We appreciate Dr. Ferreira's assistance. 4. Proteus urinary tract infection (UTI), on IV Rocephin. 5. Chronic atrial fibrillation, on Coreg, amiodarone, and Eliquis. 6. Diabetes, on sliding scale and consistent-carbohydrate diet. The patient is on 1.5 liters fluid restriction. 7. Social issues. The patient does live around his daughter. However, both of them do not have the transportation to follow with the outpatient physician followup. I discussed the issue with social service today. We are able to seek resources for the patient to ensure the patient can followup with the necessary appointments. 8. Deep venous thrombosis (DVT) prophylaxis, on Eliquis.
[2017-07-18] VITALS (7 sets, daily range): BP systolic 91–120; BP diastolic 60–75
[2017-07-18] MEDS ORDERED: POTASSIUM CHLORIDE 10 MEQ SR TABLET PO ONE
[2017-07-18] MEDS: cefTRIAXone SOD 1 GM in D5W 50 ML IV SCH ×2 (01:17→12:08)
[2017-07-18 06:04] LABS: MEAN CORPUSCULAR HEMOGLOBIN 27.2 pg (27.0-33.0); MEAN CORPUSCULAR HGB CONC 32.4 g/dl (32.0-36.5); MEAN CORPUSCULAR VOLUME 83.8 fl (80.0-96.0); RED CELL DISTRIBUTION WIDTH 14.9 % (11.5-14.5); WHITE BLOOD COUNT 5.6 10^3/uL (4.0-10.0)
[2017-07-18] MEDS: ACETAMINOPHEN 650MG ER TAB (TYLENOL ARTHRITIS) PO SCH ×3 (06:18→21:11)
[2017-07-18] MEDS: ISOSORBIDE DIN (ISORDIL) 10 MG TAB PO SCH ×3 (06:23→21:12)
[2017-07-18] MEDS: SLF 3 ML SYR IV SCH ×3 (06:23→21:12)
[2017-07-18 06:28] LABS: CALCIUM LEVEL 9.1 MG/DL (8.8-10.2); CREATININE FOR GFR 1.81 MG/DL (0.70-1.30); GLOMERULAR FILTRATION RATE 47.9 (>42); MAGNESIUM LEVEL 2.3 MG/DL (1.8-2.4); POTASSIUM SERUM 4.6 MEQ/L (3.5-5.1)
--- NOTE | 2017-07-18 07:00 | IPN ---
DATE OF VISIT: 07/17/2017 SUBJECTIVE: The patient is seen this morning at the bedside. He has no complaints. His Lasix drip was held overnight due to having reached his 24 hour negative bolus and due to nonsustained ventricular tachycardia (NSVT) actively on the biometrician. He denies any acute complaints this morning and inquires in regards to discharge plans in the future. REVIEW OF SYSTEMS: Negative for chest pain, palpitations, shortness of breath at rest, nausea or vomiting, diarrhea, dysuria, abdominal pain, headache. The remainder of the review of systems is negative. VITAL SIGNS: Temperature 97.8, pulse 67, respirations 20, blood pressure 123/81, saturating 97% on room air. Intake and output: Urine output yesterday was 3825, negative 2.6 liters. Weight in the bed scale today 124.9 kg. PHYSICAL EXAMINATION: GENERAL: The patient is seen awake, alert and oriented times three, stepping out bed to the chair in no acute distress. HEENT/NECK: Extraocular muscles intact, moist mucous membranes. He has no significant jugular venous distention. CARDIAC: S1, S2, defibrillator in the left chest wall, 2+ radial pulses, 2+ pitting edema in the lower extremities. LUNGS: Clear to auscultation bilaterally. ABDOMEN: Soft, obese, doughy, nontender. EXTREMITIES: Positive 2+ pitting edema in the lower extremities. NEUROLOGIC: No focal deficits. PSYCHIATRIC: Appropriate mood and affect. LABORATORY: White count 5.2, hemoglobin 13.9, platelets 181. Chemistries: Sodium 133, potassium 4.1, bicarbonate 31, BUN 33, creatinine 1.7. Glucose 161, calcium 9.1, magnesium 2.3. INPATIENT MEDICATIONS: The patient continued on Ceftriaxone per the primary team and he is on Lasix drip 5 mg an hour with concomitant Diamox 250 mg every 24 hours and Amiloride 5 mg every 24 hours. There are no other significant changes in his medications. ASSESSMENT AND PLAN: 1. Nonischemic cardiomyopathy with ejection fraction of around 10%. The patient' s volume status continues to improve with brisk diuresis with daily weights downtrending. He is feeling better. His renal function has stabilized at his known baseline. We will continue on Lasix drip at 5 mg an hour with sequential nephron blockade with Diamox and Amiloride as well. He has been diuresing at goal. 2. Chronic kidney disease (CKD) stage III. The patient's renal function remains fairly close to his known baseline and he continues to have diuresis on Diamox, Lasix and Amiloride with sequential nephron blockade. His potassium and magnesium, as well as his acid base status remains fairly stable. 3. Nonsustained ventricular tachycardia. The patient has never had a defibrillator shock. He continues on amiodarone and Coreg. Magnesium is above 2 and potassium is above 4. MTDD
[2017-07-18] MEDS: HumaLOG INSULIN (NovoLOG) PER UNIT SC SCH ×3 (08:16→17:10)
--- NOTE | 2017-07-18 08:16 | IPN ---
DATE: 07/18/2017 Mr. Vargas has not had any significant events overnight. He was able to sleep and he tells me he feels reasonably comfortable this morning. As a very positive development, there have not been any episodes of nonsustained ventricular tachycardia. Blood pressure is 116/62, heart rate has been in 60s and 70s. He is afebrile. Saturation is 94% on room air. Fluid balance yesterday though was documented to be slightly positive, which is disappointing. Weight is 138.5, which is slightly up from 2 days ago. He is alert and oriented and appropriate. His jugular venous pressure is still high. Lungs are clear though in sitting position. I do not appreciate any crackles or wheezing at all. Heart exam reveals rather muffled heart sounds corresponding to his body habitus. There is still murmur at the apex and also murmur at the left lower sternal border indicative of MR and TR. Abdomen is obese, but I do not appreciate shifting dullness. He still has 2 to 3+ peripheral edema. LABORATORY WHITMORE: He has normal CBC. Basic metabolic panel reveals potassium 4.6, sodium 133, BUN 29, creatinine 1.8 and glucose is 184. ASSESSMENT AND PLAN: Mr. Vargas is a 71-year-old man who has chronic systolic congestive heart failure and chronic atrial fibrillation. He presented with acute exacerbation in setting of atrial fibrillation and acutely exacerbated chronic renal failure. He unfortunately had some initial deterioration of renal function with diuresis, but then with a couple days of dopamine actually the renal function improved. I am not sure whether it was related to dopamine administration or not but it was a positive development. Unfortunately, the medication had to be stopped because of very frequent runs of nonsustained ventricular tachycardia. At this point, I think we should increase the dose of diuretics again. He is getting only 5 mg per hour of furosemide infusion and I will double the dose. Otherwise, I will continue remaining medication.
[2017-07-18] MEDS: ASPIRIN 81 MG ENTERIC TAB PO SCH (08:17)
[2017-07-18] MEDS: PANTOPRAZOLE 40MG TAB (PROTONIX) PO SCH (08:17)
[2017-07-18] MEDS: aMILoride 5 MG TAB PO SCH (08:17)
[2017-07-18] MEDS: **hydrALAZINE** 10 MG TAB PO SCH ×3 (08:17→21:11)
[2017-07-18] MEDS: AMIODARONE 200 MG TAB (PACERONE) PO SCH ×2 (08:17→21:11)
[2017-07-18] MEDS: APIXABAN 5 MG TAB (ELIQUIS) PO SCH ×2 (08:17→21:11)
[2017-07-18] MEDS: SENOKOT S TAB PO SCH ×2 (08:17→21:11)
[2017-07-18] MEDS: AcetaZOLAMIDE 250 MG TAB PO SCH (08:18)
[2017-07-18] MEDS: CARVedilol 12.5 MG TAB PO SCH ×2 (08:18→21:11)
[2017-07-18] MEDS: FLUTICASONE PROP 0.05% NASAL SPRAY 16 GM (FLONASE) SCH (08:18)
[2017-07-18] MEDS: FUROSEMIDE injection 250 MG in D5W 225 ML IV SCH (12:07)
--- NOTE | 2017-07-18 12:38 | IPN ---
DATE: 07/18/2017 Mr. Vargas is seen this morning on his bedside. He is sitting in the chair at the time of my visit. He reports sleeping well at night and denies any dyspnea or chest pain. He has significant weight loss since admission. However, still has some peripheral edema. The patient denies any nausea, vomiting, fever or chills. He remains on IV Lasix drip and the dopamine drip has been stopped due to recurrent nonsustained ventricular tachycardia. During last 24 hours, he did not have any further episodes of ventricular tachycardia. PHYSICAL EXAMINATION: Temperature 97.6 degrees Fahrenheit, heart rate 86 per minute and respiratory rate 18 per minute. Blood pressure 113/66 mmHg and oxygen saturation 95% on room air. Intake and output records from yesterday showed total intake 1731 and output 1125 mL. It is possible that his output has not been recorded accurately as the patient was diuresing much more prior to this. Total he has been in negative balance of over 15 liters since admission. His head is atraumatic. Neck is supple and JVD is still mildly elevated. There is no oral thrush or ulcers. Ears, nose and throat are unremarkable. Heart sounds are regular with systolic murmur grade 2/6. There is no pericardial friction rub. Lungs sound clear to auscultation bilaterally. Abdomen is obese, soft and nontender. Bowel sounds are normal. Extremities have no cyanosis or clubbing. Lower extremity edema is about 2+ up to just below the knees. Skin is without any rash or ulcers. Neurologically he is awake, alert and oriented times three. Today's labs show WBC count 5.6, hemoglobin 14.1 and hematocrit 43.5. Sodium is 133 and potassium 4.6. BUN 29 and creatinine 1.81. Glucose 184 and calcium 9.1. PROBLEMS: 1. Acute on chronic systolic congestive heart failure: The patient has been diuresing very well. He is more than 15 liters negative since admission. I am not sure if output was recorded accurately yesterday as he seems to be diuresing very well. We will monitor closely his total intake and output and then consider adjustment in his diuretic. At this point, I will continue with current Lasix dose of 5 mg per hour along with spironolactone and acetazolamide. The patient did develop metabolic alkalosis with aggressive diuretic. Acetazolamide has been added along with amiloride and he remains on IV Lasix drip at 5 mg per hour. 2. Acute on chronic kidney disease: His kidney function is more less stable with only mild fluctuations. We will continue to monitor closely. 3. Hyponatremia: This is mild and chronic and most likely related to congestive heart failure. We will continue with current diuretics.
--- NOTE | 2017-07-18 16:35 | IPN ---
DATE: 07/18/2017 SUBJECTIVE: Patient seen and examined in the room today. Patient stated he has noticed improvement on a daily basis. He has also noted the lower extremity swelling is also decreased. Patient also noticed significant weight changes from the diuretic. On telemetry there is no recurrent of nonsustained ventricular tachycardia in the past 24 hours. OBJECTIVE: VITAL SIGNS: Temperature is 97.6, pulse 86, respirations 18, blood pressure is 113/66, pulse is 95% in room air. GENERAL: Morbidly obese. No sign of acute distress. Alert and oriented times three. HEENT: Normocephalic, atraumatic. Extraocular motor grossly intact. CARDIOVASCULAR: Distant heart sounds, irregularly irregular. Positive heart murmur. LUNGS: Clear to auscultation bilaterally. No wheezes or rhonchi. ABDOMEN: Soft, nontender, nondistended. Bowel sounds present. EXTREMITIES: There is some positive pitting edema bilaterally, right greater than left. There is still some notable dried fluid stain from the dressing on the right lower extremity. LABORATORY DATA: WBC 5.6, hemoglobin 14.1, hematocrit is 43.5, platelet count is 188. Sodium is 133, potassium is 4.6, chloride is 97, carbon dioxide 28, BUN 29, creatinine 1.81, GFR is 47.9, fasting glucose 184, calcium 9.1, magnesium 2.3. ASSESSMENT AND PLAN: 1. Systolic congestive heart failure exacerbation. Patient had an ejection fraction of 10%. Patient has been currently receiving Lasix diuresis by drip. Patient is amyotrophic lateral sclerosis on Diamox and amiloride. Content Management Consultant and engine lathe tender has been assisting in the patient's case. Patient's intake and output are reviewed. Patient continues to notice clinical improvements. 2. Nonsustained ventricular tachycardia. No recurrence in the last 24 hours. Continue to monitor on telemetry. Patient is on amiodarone and Coreg. 3. Chronic kidney disease, stage III. Patient currently is going through active diuretic adjustment for patient's systolic congestive heart failure. We appreciate Dr. Ferreira's assistance. 4. Proteus urinary tract infection (UTI), on intravenous (IV) Rocephin. 5. Chronic atrial fibrillation, on Coreg, amiodarone, and Eliquis. 6. Diabetes, on sliding scale and consistent-carbohydrate diet, 1.5-liter fluid restriction. 7. Deep vein thrombosis (DVT), on Eliquis.
[2017-07-19] MEDS: cefTRIAXone SOD 1 GM in D5W 50 ML IV SCH ×2 (01:16→12:58)
[2017-07-19 04:00] VITALS: BP 107/73
[2017-07-19] MEDS: SLF 3 ML SYR IV SCH ×3 (05:47→21:03)
[2017-07-19] MEDS: ISOSORBIDE DIN (ISORDIL) 10 MG TAB PO SCH ×3 (05:47→21:03)
[2017-07-19] MEDS: ACETAMINOPHEN 650MG ER TAB (TYLENOL ARTHRITIS) PO SCH ×3 (05:47→21:02)
[2017-07-19 06:40] LABS: MEAN CORPUSCULAR HEMOGLOBIN 27.3 pg (27.0-33.0); MEAN CORPUSCULAR HGB CONC 32.8 g/dl (32.0-36.5); MEAN CORPUSCULAR VOLUME 83.2 fl (80.0-96.0); WHITE BLOOD COUNT 5.5 10^3/uL (4.0-10.0)
[2017-07-19 06:53] LABS: CALCIUM LEVEL 9.1 MG/DL (8.8-10.2); CREATININE FOR GFR 1.82 MG/DL (0.70-1.30); GLOMERULAR FILTRATION RATE 47.6 (>42); POTASSIUM SERUM 3.7 MEQ/L (3.5-5.1)
[2017-07-19 08:00] VITALS: BP 137/65
[2017-07-19] MEDS: HumaLOG INSULIN (NovoLOG) PER UNIT SC SCH ×3 (08:28→17:02)
--- NOTE | 2017-07-19 08:39 | IPN ---
DATE: 07/19/2017 Mr. Vargas is feeling reasonably well. He said he slept well. He did not have any paroxysmal nocturnal dyspnea (PND). He does not have any chest pain or palpitations. He did not have any nonsustained ventricular tachycardia (VT) yesterday. Blood pressure is 107/73. Heart rate remains 60s and 70s. He is afebrile. Saturation 90-93% on room air. Fluid balance yesterday was documented about 1500 negative, but weight is actually a little bit higher at 139.7. I am not sure about the accuracy of this. He remains alert and oriented and appropriate. His jugular venous pulse (JVP) is still above the clavicle in the sitting position, but barely so, which represents significant improvement. Lungs are reasonably clear to auscultation. I do not appreciate any wheezing or rhonchi. Heart Exam: Reveals irregular rhythm. There is a murmur at the apex, about 2/6, a blowing systolic murmur. There is also a very quiet murmur just at the lower left edge of the sternum. Abdomen is obese, but soft. There is still about 2+ edema to the level of his knees. Laboratory-bynum, normal CBC. Basic metabolic panel reveals sodium 133, potassium 3.7, BUN 28, creatinine 1.8 for a GFR of 48 and glucose 190. ASSESSMENT/PLAN: Mr. Vargas is a 71-year-old man who has chronic atrial fibrillation and likely nonischemic cardiomyopathy who presented with acutely exacerbated congestive heart failure that is systolic in nature. His ejection fraction (EF) is estimated around 10%. He has had a long hospital stay. Initially with the attempt to diurese him, he developed acutely worsening renal failure, but it has stabilized. He was transiently given dopamine, but unfortunately had too many episodes of nonsustained ventricular tachycardia and consequently the drip was discontinued. Currently, he seems to be diuresing appropriately even without pressor amines and I hope that he will be ready for discharge by next week. For the atrial fibrillation, he is well rate-controlled on carvedilol. I started him on amiodarone this admission because he had multiple runs of nonsustained VT and I did not want him to get a shock from his ICD. It looks like in the last four days, the VT abated, which creates a condition that he potentially could get dobutamine if needed. Overall, I think he is improving and hopefully will be ready for discharge early next week. Dr. Chawla is covering this weekend so please contact him if any assistance is needed over the weekend.
[2017-07-19] MEDS: AcetaZOLAMIDE 250 MG TAB PO SCH (09:56)
[2017-07-19] MEDS: CARVedilol 12.5 MG TAB PO SCH ×2 (09:56→21:02)
[2017-07-19] MEDS: AMIODARONE 200 MG TAB (PACERONE) PO SCH ×2 (09:56→21:01)
[2017-07-19] MEDS: POTASSIUM CHLORIDE 10 MEQ SR TABLET PO SCH ×2 (09:56→21:01)
[2017-07-19] MEDS: aMILoride 5 MG TAB PO SCH (09:57)
[2017-07-19] MEDS: **hydrALAZINE** 10 MG TAB PO SCH ×3 (09:57→21:02)
[2017-07-19] MEDS: ASPIRIN 81 MG ENTERIC TAB PO SCH (09:57)
[2017-07-19] MEDS: PANTOPRAZOLE 40MG TAB (PROTONIX) PO SCH (09:57)
[2017-07-19] MEDS: SENOKOT S TAB PO SCH ×2 (09:58→21:02)
[2017-07-19] MEDS: FLUTICASONE PROP 0.05% NASAL SPRAY 16 GM (FLONASE) SCH (09:58)
[2017-07-19] MEDS: APIXABAN 5 MG TAB (ELIQUIS) PO SCH ×2 (09:58→21:02)
[2017-07-19 12:00] VITALS: BP 102/61
[2017-07-19] MEDS: FUROSEMIDE injection 250 MG in D5W 225 ML IV SCH (12:58)
--- NOTE | 2017-07-19 14:00 | IPN ---
DATE: 07/19/2017 Mr. Vargas is seen this morning on his bedside. He is sitting in the chair and feels well. He has been diuresing well with IV Lasix drip. The patient denies any dyspnea, chest pain, nausea or vomiting. He is known to have severe systolic dysfunction with an ejection fraction of only 10%. He does have some peripheral edema and a nonhealing wound on his right lower leg. He did respond to diuretics only when he was given dopamine drip; however, he developed multiple episodes of nonsustained ventricular tachycardia due to which dopamine drip has been stopped. Since then, he has been on amiodarone and no further ventricular tachycardia was noted for the last 3 days. On physical examination, temperature 97.6 degrees Fahrenheit, heart rate 68 per minute and respiratory rate 18 per minute. Blood pressure 137/65 mmHg and oxygen saturation 96% on room air. Intake and output records from yesterday showed total intake 1127 and output 2650. His head is atraumatic. Neck is supple and jugular venous distention (JVD) remains at least moderately elevated even with sitting upright. His heart sounds are distant and lungs sound clear to auscultation bilaterally. Abdomen is obese, soft and nontender. Extremities: Have no cyanosis or clubbing. Lower extremity edema is about 2+. He had a wound on his right leg which is covered with a dressing. Neurologically, he is awake, alert and oriented times three. Today's labs show WBC count 5.5, hemoglobin 13.3 and hematocrit 40.6. Platelets 172. Sodium 133 and potassium 3.7. BUN 28 and creatinine 1.82. Glucose 190 and calcium 9.1. PROBLEMS: 1. Acute on chronic systolic congestive heart failure. The patient is diuresing very well and will continue with IV Lasix drip in addition to oral amiloride and acetazolamide. 2. Acute kidney injury superimposed on chronic kidney disease. Kidney function has been more or less stable. There is no significant change noticed over last 4 days. We will continue to monitor closely. 3. Hypokalemia. Related to aggressive diuresis. His potassium level is trending downwards. I am going to start him on potassium chloride 20 mEq twice a day. [facility]
[2017-07-19 16:00] VITALS: BP 123/73
[2017-07-19 19:50] VITALS: BP 107/69
[2017-07-20 00:12] VITALS: BP 109/75
[2017-07-20] MEDS: cefTRIAXone SOD 1 GM in D5W 50 ML IV SCH ×2 (00:18→12:21)
[2017-07-20 05:01] VITALS: BP 103/67
[2017-07-20] MEDS: ACETAMINOPHEN 650MG ER TAB (TYLENOL ARTHRITIS) PO SCH ×3 (05:07→21:09)
[2017-07-20] MEDS: SLF 3 ML SYR IV SCH ×3 (05:07→21:07)
[2017-07-20] MEDS: ISOSORBIDE DIN (ISORDIL) 10 MG TAB PO SCH ×2 (05:07→14:27)
[2017-07-20 05:11] LABS: MEAN CORPUSCULAR HEMOGLOBIN 27.2 pg (27.0-33.0); MEAN CORPUSCULAR HGB CONC 32.6 g/dl (32.0-36.5); MEAN CORPUSCULAR VOLUME 83.3 fl (80.0-96.0); RED CELL DISTRIBUTION WIDTH 15.4 % (11.5-14.5); WHITE BLOOD COUNT 5.9 10^3/uL (4.0-10.0)
[2017-07-20 05:25] LABS: CALCIUM LEVEL 8.9 MG/DL (8.8-10.2); CREATININE FOR GFR 1.81 MG/DL (0.70-1.30); GLOMERULAR FILTRATION RATE 47.9 (>42); MAGNESIUM LEVEL 2.2 MG/DL (1.8-2.4); POTASSIUM SERUM 3.7 MEQ/L (3.5-5.1)
[2017-07-20] MEDS: aMILoride 5 MG TAB PO SCH (07:53)
[2017-07-20] MEDS: PANTOPRAZOLE 40MG TAB (PROTONIX) PO SCH (07:59)
[2017-07-20] MEDS: HumaLOG INSULIN (NovoLOG) PER UNIT SC SCH ×3 (07:59→18:39)
[2017-07-20] MEDS: **hydrALAZINE** 10 MG TAB PO SCH ×2 (07:59→14:27)
[2017-07-20 08:00] VITALS: BP 107/65
[2017-07-20] MEDS: POTASSIUM CHLORIDE 10 MEQ SR TABLET PO SCH ×2 (08:00→21:06)
[2017-07-20] MEDS: SENOKOT S TAB PO SCH ×2 (08:00→21:06)
[2017-07-20] MEDS: AMIODARONE 200 MG TAB (PACERONE) PO SCH ×2 (08:00→21:06)
[2017-07-20] MEDS: APIXABAN 5 MG TAB (ELIQUIS) PO SCH ×2 (08:00→21:05)
[2017-07-20] MEDS: AcetaZOLAMIDE 250 MG TAB PO SCH (08:00)
[2017-07-20] MEDS: ASPIRIN 81 MG ENTERIC TAB PO SCH (08:01)
[2017-07-20] MEDS: CARVedilol 12.5 MG TAB PO SCH ×2 (08:01→21:05)
[2017-07-20] MEDS: FLUTICASONE PROP 0.05% NASAL SPRAY 16 GM (FLONASE) SCH (08:03)
[2017-07-20 12:00] VITALS: BP 114/69
[2017-07-20] MEDS: SPIRONOLACTONE 12.5MG PER 1/2 TABLET PO SCH (14:26)
--- NOTE | 2017-07-20 15:14 | IPN ---
DATE: 07/20/2017 CARDIOLOGY PROGRESS NOTE Covering for Dr. Biswas. SUBJECTIVE: Patient is currently sitting in a chair by his bedside and claims to be feeling well. He is very happy with his negative fluid balance the past few days and reduction in his dependent edema. Denies any awareness of his heart action, chest discomfort, current shortness of breath, or dizziness. OBJECTIVE: Obese barrel-chested black male, sitting comfortably in the chair. Heart rate 74 beats per minute (BPM) and irregular, blood pressure 115/69, respiratory rate 16 per minute, oxygen saturation 94% on room air. Afebrile. Weight today 132 kg, down 7 kg from yesterday (question). Negative fluid balance of 1500 mL yesterday. No pallor or icterus of his conjunctivae. Normal oral moisture with no central cyanosis. Trachea midline. Neck veins remain markedly elevated above the sternal angle and clavicle even with him sitting, at least 12-14 cm. Continues to have fairly gross sacral, lumbar, and even lower thoracic spine pitting edema. Gross bilateral lower leg swelling. Has fair air entry over both lung caraballo with no current inspiratory rales, but we are dealing with someone who has had very chronic congestion and likely has well-adapted lymphatic system. In light of his body habitus, his apical impulse was not palpable. Heart sounds were quite variable with audible S3 gallop. No audible murmur despite echocardiographic study showing moderate mitral insufficiency. Protuberant, soft abdomen. SOFTBALL CORE MOLDER: This shows underlying atrial fibrillation/flutter with controlled ventricular response on his current carvedilol therapy. Single bout of somewhat slow, nonsustained ventricular tachycardia. Earlier today was asymptomatic. LABORATORY DATA: Hemoglobin 13.8 with normal white blood cell count and platelet count. He electrolytes were in balance with essentially stable BUN of 30, creatinine 1.8, fasting glucose this morning 161. IMPRESSION/PLAN: 1. Heart failure (systolic and diastolic/acute on chronic): Despite his negative fluid balance, he has very marked ongoing right heart failure and impressive systemic edema. I understand his intravenous (IV) Lasix infusion was switched to torsemide by mouth earlier today. His amiloride was placed on hold, but I have replaced this agent with spirolactone, as he had been taking prior to his admission, as this agent has been shown to reduce mortality, where as amiloride has not. In light of his marked ongoing systemic congestion, I have introduced at least low-dose dobutamine IV infusion to augment his cardiac performance and diuresis. I am convinced that this will improve his renal perfusion and function. I have changed his hydralazine and isosorbide vasodilator orders to eliminate hold parameters, as he is missing doses of these agents. 2. Mitral insufficiency (nonrheumatic): Judging from his echocardiographic report, this is a functional phenomenon with related to dilated and dysfunctional left ventricle rather than intrinsic valvular heart disease. No symptoms or signs of endocarditis. Afebrile with normal white blood cell counts. With his valvular insufficiency it is important to administer his vasodilators, ignoring blood pressure parameters as long as the patient is not lightheaded or dizzy. 3. Atrial fibrillation (chronic): Continues to have a controlled ventricular response on carvedilol therapy. On his current Eliquis has been free of symptomatic thromboembolic event or hemorrhagic complication. 4. Ventricular tachycardia (nonsustained): Has remained free of symptomatic ventricular arrhythmia or implantable cardioverter defibrillator (ICD) discharge. Amiodarone was introduced earlier this admission because of his impressive nonsustained runs that were anticipated to possibly become more significant and trigger his device discharge. I am convinced if we are able to further improve his congested state and reduce left ventricular size, his risk of arrhythmia will decrease. He has received 2 weeks of amiodarone 400 mg twice a day at this time, so I have now reduced his dosage to 200 mg twice a day. He will remain on the EKG monitoring. 5. Abnormal EKG: No repeat study has been performed since his admission. This showed his atrial fibrillation, of course, with very low voltages. rightward axis, in keeping with his obesity and congested state. Though he does have small inferior and apical Q-waves, his echocardiographic study performed at the same time reportedly showed no localized wall motion abnormality, severe global hypokinesis. As mentioned, I have made few medication adjustments in light of his ongoing marked systemic edema and ongoing heart failure. The literature demonstrates that if we are able to render him euvolemic, i.e., relieve as much congestion as possible, the rate of readmissions within 30 days in such patients significantly decreases. I will continue to follow him until Dr. Biswas's his return SaturdayJuly 22.
[2017-07-20] MEDS: DOBUTamine HCL 500,000 MCG in APPROPRIATE DILUENT 1 EA IV SCH (15:17)
[2017-07-20 16:00] VITALS: BP 104/59
[2017-07-20] MEDS: ISOSORBIDE DIN. (ISORDIL) 20 MG TAB PO SCH (16:21)
[2017-07-20] MEDS: **hydrALAZINE HCL** 25 MG TAB PO SCH (16:21)
--- NOTE | 2017-07-20 17:33 | IPN ---
DATE: 07/20/2017 SUBJECTIVE: Patient seen and examined in the room today. Today patient stated he is feeling better clinically. Denies any chest pain or palpitations. Denied any shortness of breath. Patient also noted his lower extremity swelling has been decreasing in size. OBJECTIVE: VITAL SIGNS: Temperature is 97, pulse 63, respirations 18, blood pressure 107/65, pulse oximetry 93% in room air. GENERAL: No sign of acute distress, alert and oriented times three. HEENT: Normocephalic, atraumatic. Extraocular motor grossly intact. CARDIOVASCULAR: Distant heart sounds but irregularly irregular. Positive heart murmur. LUNGS: Clear to auscultation bilaterally. No wheezes or rhonchi. ABDOMEN: Soft, nontender, nondistended. Bowel sounds present. EXTREMITIES: Still some pitting edema bilaterally, right greater than left. LABORATORY DATA: WBC is 5.9, hemoglobin 13.8, hematocrit 42.3, platelet count is 180. Sodium is 136, potassium 3.7, chloride 99, carbon dioxide 28, BUN 30, creatinine is 1.81, GFR is 47.9, fasting glucose 161, calcium 8.9, magnesium 2.2. ASSESSMENT AND PLAN: 1. Systolic congestive heart failure exacerbation, ejection fraction (EF) of 10%. Firearms Assembly Supervisor and engineering patternmaker have been consulted to assist in patient's case. Patient has been having negative fluid balance. I will refer the medication adjustment to the specialist. I appreciate their assistance. 2. Nonsustained ventricular tachycardia. Patient had frequent nonsustained ventricular tachycardia, and patient has been on amiodarone and Coreg. Continue to monitor on telemetry. Patient has remained asymptomatic. 3. Chronic kidney disease, stage III. Patient has been going through active diuretic adjustment for his systolic congestive heart failure. Appreciate Dr. Ferreira's assistance. 4. Protease urinary tract infection (UTI), on Rocephin. 5. Chronic atrial fibrillation, rate in the satisfactory range on Coreg, amiodarone, and Eliquis. 6. Diabetes, on sliding scale, on consistent-carbohydrate diet, on 1.5-liter fluid restriction. 7. Deep vein thrombosis (DVT) prophylaxis, on Eliquis.
[2017-07-20] MEDS: TORSEMIDE (DEMADEX) 50 MG PER 1/2 TAB PO SCH (18:39)
[2017-07-20] MEDS ORDERED: ISOSORBIDE DIN. (ISORDIL) 20 MG TAB PO ONE ×2 (19:00→21:00)
[2017-07-20 19:13] VITALS: BP 115/76
[2017-07-20] MEDS ORDERED: **hydrALAZINE HCL** 25 MG TAB PO ONE (21:00)
--- NOTE | 2017-07-20 22:35 | IPN ---
DATE: 07/20/2017 SUBJECTIVE: Mr. aVrgas is seen this morning on his bedside. He is feeling well and is currently sitting in the chair. He denies any dyspnea, chest pain, nausea, vomiting, fever or chills. He reports significant improvement in lower extremity edema. He continues with intravenous (IV) Lasix drip at this point and is diuresing well. PHYSICAL EXAMINATION: VITAL SIGNS: Temperature 97.0 degrees Fahrenheit, heart rate 64 per minute and respiratory rate 18 per minute. Blood pressure 107/65 mmHg and oxygen saturation 93% on room air. Intake and output records from yesterday showed total intake 1580 and output 3050 mL. HEAD/NECK: His head is atraumatic. Neck is supple and without thyroid enlargement. Neck veins are still mildly distended. Ears, nose and throat are unremarkable. CARDIAC: Heart exam reveals distant heart sounds. There is no pericardial friction rub. RESPIRATORY: Lung sounds clear to auscultation bilaterally. ABDOMEN: Soft, obese and nontender. EXTREMITIES: Without cyanosis or clubbing. Right lower leg ulcer is covered with dressing. His lower extremity edema has improved significantly. NEUROLOGIC: He is awake, alert and oriented times three. LABORATORY DATA: Today's labs show WBC count 5.9, hemoglobin 13.8 and hematocrit 42.3. Platelets 180. Sodium 136 and potassium 3.7. BUN 30 and creatinine 1.81. Calcium level is 8.9 and magnesium 2.2. PROBLEMS: 1. Acute on chronic systolic congestive heart failure. The patient has known history of severe nonischemic cardiomyopathy with ejection fraction of only 10%. He has done very well with IV Lasix and has diuresed significantly. At this point I am going to stop his Lasix drip and switching him to oral torsemide 50 mg twice a day. He will continue with spironolactone. Cardiology has started him on dobutamine drip today. He does have history of recurrent nonsustained supraventricular tachycardia (SVT) for which he has been on amiodarone. He will continue with hydralazine and isosorbide. 2, Acute and chronic kidney disease. His kidney function has been more or less stable. At this point we will continue to monitor his kidney function and electrolytes daily. 3. Right leg wound with cellulitis. The patient remains on ceftriaxone 1 gram every 12 hours.
--- NOTE | 2017-07-20 22:46 | IPN ---
DATE: 07/19/2017 SUBJECTIVE: Patient seen and examined in the room today. Patient continues to notice significant diuresis. Patient stated he is feeling better. Denies any acute complaints. OBJECTIVE: VITAL SIGNS: Temperature 97.6, pulse 68, respirations 18, blood pressure 137/65, pulse oximetry 96% in room air. GENERAL: No sign of acute distress, alert and oriented times three. HEENT: Normocephalic, atraumatic. Extraocular motor grossly intact. CARDIOVASCULAR: Decreased heart sounds, irregularly irregular. Positive heart murmur. LUNGS: Clear to auscultation bilaterally. No wheezes or rhonchi. ABDOMEN: Morbidly obese, soft, nontender, nondistended. EXTREMITIES: There has still positive edema bilaterally, right greater than left. LABORATORY DATA: WBC is 5.5, hemoglobin 13.3, hematocrit 40.6, platelet count 172. Sodium is 133, potassium 3.7, chloride 98, carbon dioxide 27, BUN 28, creatinine 1.82, GFR is 47.6, fasting glucose 190, calcium 9.1, magnesium 2. ASSESSMENT AND PLAN: 1. Systolic congestive heart failure exacerbation, ejection fraction (EF) of 10%. Patient is receiving aggressive diuresis. Patient is currently on Lasix drip. Patient is also taking Diamox and amiloride. Pattern Technician, oncologist have been assisting on patient's case. Patient's intake and output are reviewed. Patient has continued to have significant amount of net fluid balance. 2. Nonsustained ventricular tachycardia. Patient is placed on amiodarone and Coreg. The frequent of nonsustained ventricular tachycardia has shown significant improvement. Patient does have a defibrillator. 3. Acute on chronic kidney disease. At baseline patient as chronic kidney disease (CKD), Stage III. Patient is still going through active diuresis with frequent diuretic adjustment. Pattern Technician has been assisting on the case. We appreciate Dr. Ferreira's assistance. 4. Protease urinary tract infection (UTI), on Rocephin. 5. Chronic atrial fibrillation, on Coreg, amiodarone, and Eliquis. 6. Diabetes, on sliding scale, on consistent-carbohydrate diet, on 1.5 liter fluid restriction. 7. Deep vein thrombosis (DVT) prophylaxis, on Eliquis.
[2017-07-21 00:35] VITALS: BP 123/74
[2017-07-21] MEDS: cefTRIAXone SOD 1 GM in D5W 50 ML IV SCH ×2 (00:36→14:00)
[2017-07-21 05:12] VITALS: BP 117/72
[2017-07-21] MEDS: SLF 3 ML SYR IV SCH ×3 (05:18→20:51)
[2017-07-21] MEDS: ACETAMINOPHEN 650MG ER TAB (TYLENOL ARTHRITIS) PO SCH ×3 (05:18→20:50)
[2017-07-21 05:20] LABS: MEAN CORPUSCULAR HEMOGLOBIN 27.2 pg (27.0-33.0); MEAN CORPUSCULAR HGB CONC 32.7 g/dl (32.0-36.5); MEAN CORPUSCULAR VOLUME 83.3 fl (80.0-96.0); RED CELL DISTRIBUTION WIDTH 15.3 % (11.5-14.5); WHITE BLOOD COUNT 6.1 10^3/uL (4.0-10.0)
[2017-07-21 05:41] LABS: CALCIUM LEVEL 8.4 MG/DL (8.8-10.2); CREATININE FOR GFR 1.72 MG/DL (0.70-1.30); GLOMERULAR FILTRATION RATE 50.8 (>42); MAGNESIUM LEVEL 2.1 MG/DL (1.8-2.4); POTASSIUM SERUM 3.9 MEQ/L (3.5-5.1)
[2017-07-21] MEDS: ISOSORBIDE DIN. (ISORDIL) 20 MG TAB PO SCH ×3 (07:19→18:19)
[2017-07-21] MEDS: **hydrALAZINE HCL** 25 MG TAB PO SCH ×3 (07:19→18:18)
[2017-07-21] MEDS: HumaLOG INSULIN (NovoLOG) PER UNIT SC SCH ×4 (07:20→18:22)
[2017-07-21 08:00] VITALS: BP 136/75
[2017-07-21] MEDS: SPIRONOLACTONE 12.5MG PER 1/2 TABLET PO SCH (09:59)
[2017-07-21] MEDS: AcetaZOLAMIDE 250 MG TAB PO SCH (09:59)
[2017-07-21] MEDS: TORSEMIDE (DEMADEX) 50 MG PER 1/2 TAB PO SCH ×2 (09:59→18:19)
[2017-07-21] MEDS: ASPIRIN 81 MG ENTERIC TAB PO SCH (09:59)
[2017-07-21] MEDS: APIXABAN 5 MG TAB (ELIQUIS) PO SCH ×2 (09:59→20:50)
[2017-07-21] MEDS: CARVedilol 12.5 MG TAB PO SCH ×2 (10:00→20:50)
[2017-07-21] MEDS: PANTOPRAZOLE 40MG TAB (PROTONIX) PO SCH (10:00)
[2017-07-21] MEDS: POTASSIUM CHLORIDE 10 MEQ SR TABLET PO SCH ×2 (10:00→20:50)
[2017-07-21] MEDS: FLUTICASONE PROP 0.05% NASAL SPRAY 16 GM (FLONASE) SCH (10:01)
[2017-07-21] MEDS: AMIODARONE 200 MG TAB (PACERONE) PO SCH ×2 (10:01→20:50)
[2017-07-21] MEDS: SENOKOT S TAB PO SCH ×2 (10:01→20:50)
--- NOTE | 2017-07-21 11:30 | REP ---
Chest x-ray: Two views. History: Followup CHF. Findings: A unipolar pacemaker is seen in the right heart. Mild cardiomegaly is observed. There is linear fibrosis versus plate-like atelectasis again noted in the left inferior perihilar region. There is mild cephalization. Interstitial markings are slightly increased in the bases and there are a few [place] B lines. No pleural effusion is seen. Signed by Leonidas Yancey MD 07/21/2017 09:38 A
[2017-07-21 12:02] VITALS: BP 109/69
[2017-07-21 16:00] VITALS: BP 136/65
--- NOTE | 2017-07-21 17:16 | IPN ---
DATE: 07/21/2017 CARDIOLOGY PROGRESS NOTE - COVERING FOR DR. PETER SUBJECTIVE: The patient again is sitting in his chair by his bedside and still feeling quite well. He is trying to comply with his fluid and salt intake restrictions. He is happy with the apparent negative fluid balance. With his limited activities he has been free of any chest discomfort, shortness of breath or dizziness. Remains unaware of his heart action. OBJECTIVE: Obese barrel-chested black male sitting comfortably. Heart rate 68 bpm and irregular, blood pressure 110/70, respiratory rate 18 per minute, oxygen saturation 94% on room air. Afebrile. Weight was not recorded today. Has had a negative fluid balance of approximately 1200 mL yesterday. Conjunctiva are not pale or icteric. Normal oral moisture with no central cyanosis. Trachea midline. Neck veins unfortunately remain quite elevated at least 12 cm above the sternal angle and above the clavicle with him sitting. Has a few bibasilar inspiratory crepitations and slightly less pitting edema over his lower thoracic spine but still impressive lumbar and sacral pitting as well as bilateral leg swelling. library monitor: Continues to show atrial fibrillation / flutter with a controlled ventricular response on his current carvedilol. Reduced amiodarone therapy yesterday but remains free of any complex ventricular ectopy at this time. He is tolerating his low-dose dobutamine. Laboratory data: Hemoglobin 13.5 with normal white blood cell count and platelet count. Electrolytes are normal. Despite his negative fluid balance, BUN and creatinine are slightly lower than yesterday on his low-dose dobutamine at 28 and 1.7. Fasting glucose this morning 142, magnesium 2.1. PA left lateral chest x-ray reviewed today and compared with prior portable studies 07/07/2017 and 07/10/2017. Continues to have obvious cardiomegaly with single chamber ICD in situ. Prominent proximal pulmonary arteries with slightly less pulmonary vascular congestion and interstitial markings. No current pleural effusion. IMPRESSION/PLAN: 1. Heart failure (systolic and diastolic / acute on chronic): As mentioned yesterday, continues to have incredible right heart failure and systemic edema though this appears to be slightly less today on his combination torsemide by mouth, spironolactone, and low-dose IV dobutamine. Has tolerated his combination isosorbide dinitrate and hydralazine by mouth without problems. We have limited his hold parameters as explained yesterday. 2. Mitral insufficiency (nonrheumatic): Does not have any oscillatory abnormality correlating his echocardiographically documented moderate insufficiency. Remains free of symptom or sign of congestion. Undoubtedly the more we can relieve him of his congested state, the smaller his left ventricle will be and the less mitral insufficiency he will have. 3. Atrial fibrillation (chronic): Ventricular response remains controlled on carvedilol despite his IV dobutamine. Eliquis is being tolerated without adverse effect. 4. Ventricular tachycardia (nonsustained): Has certainly tolerated the introduction of low-dose IV dobutamine infusion even with the reduction in his amiodarone therapy yesterday. He should remain on youth nutritional monitor for as long as he is receiving parenteral dobutamine. 5. Abnormal EKG: Has remained free of chest discomfort. No repeat EKG was obtained. I spent considerable time today trying to reinforce dietary measures - modest salt, caloric, and fluid intake. Undoubtedly in the long run his compliance will determine his quality and length of life. Dr. Peter will be returning tomorrow.
--- NOTE | 2017-07-21 17:34 | IPN ---
DATE: 07/21/2017 SUBJECTIVE: Patient is seen and examined in the room today. Patient is sitting comfortably in his recliner. Denies any complaint about chest pain or palpitations or difficulty breathing. OBJECTIVE: VITAL SIGNS: Temperature 97, pulse 71, respirations 18, blood pressure 136/75, pulse oximetry 93% in room air. GENERAL: No sign of acute distress, alert and oriented times three. HEENT: Normocephalic, atraumatic. Extraocular motors grossly intact. CARDIOVASCULAR: Distant heart sounds, positive heart murmur, irregularly irregular. LUNGS: Clear to auscultation bilaterally. No wheezes or rhonchi. ABDOMEN: Soft, nontender, nondistended. Bowel sounds present. EXTREMITIES: Still some pitting edema bilaterally. There is starting to show some visible wrinkles of the lower extremities. LABORATORY DATA: WBC 6.1, hemoglobin 13.5, hematocrit 41.3, platelet count 177. Sodium 135, potassium 3.9, chloride 100, carbon dioxide 27, BUN 28, creatinine 1.72, GFR 50.8, fasting glucose 142, calcium 8.4, magnesium 2.1. ASSESSMENT AND PLAN: 1. Systolic congestive heart failure exacerbation. Ejection fraction (EF) of 10%. Patient continues to receive multiple diuretics for diuresis. Patient had a recent medication change by the labor contractor, Dr. Chawla. Continue to monitor intake and output. Patient continues to show symptomatic improvement. 2. Nonsustained ventricular tachycardia. Previously, patient had asymptomatic ventricular tachycardia detected on telemetry. Patient has a defibrillator. Patient is on amiodarone and Coreg. The frequency of nonsustained ventricular tachycardia has decreased. 3. Chronic kidney disease stage III. Patient is on active diuretic regimen adjustment. Nephrology also has been assisting on the case. 4. Proteus urinary tract infection (UTI), on Rocephin. Patient had been receiving IV Rocephin and patient finished the course. Will discontinue the oral antibiotic and continue to monitor patient's symptoms. 5. Chronic atrial fibrillation. On Coreg, amiodarone, and Eliquis. 6. Diabetes. On consistent carbohydrate diet and on sliding scale and 1.5 liters fluid restriction. 7. Deep venous thrombosis (DVT) prophylaxis. Patient is on Eliquis.
--- NOTE | 2017-07-21 18:43 | IPN ---
DATE: 07/21/2017 SUBJECTIVE: Mr. Vargas is seen this afternoon on his bedside. He is sitting in the chair watching TV. The patient denies any dyspnea, chest pain, nausea, vomiting, palpitations, fever or chills. He is currently on intravenous (IV) dobutamine drip and oral diuretic. He has been diuresing very well. PHYSICAL EXAMINATION: VITAL SIGNS: Temperature 98.1 degrees Fahrenheit, heart rate 69 per minute and respiratory rate 20 per minute. Blood pressure 109/69 mmHg and oxygen saturation 94% on room air. Intake and output records from yesterday showed total intake 1100 and output 2300. HEENT: His head is atraumatic. Ears, nose and throat are unremarkable. NECK: Supple and jugular venous distention (JVD) is still elevated. CARDIAC: Heart sounds are irregular and distant. LUNGS: Clear to auscultation bilaterally. BACK: Does have a sacral edema. ABDOMEN: Obese, nontender and without any palpable organomegaly. EXTREMITIES: Have no cyanosis or clubbing. Peripheral edema is now only 1+ on both legs. NEUROLOGIC: He is awake, alert and oriented times three. LABORATORY DATA: Today's labs show WBC count 6.1, hemoglobin 13.5 and hematocrit 41.3. Platelets 177. Sodium 135, potassium 3.9, BUN 28 and creatinine 1.72. Calcium 8.4 and magnesium 2.1. PROBLEMS: 1. Acute on chronic systolic congestive heart failure. The patient is known to have severe cardiomyopathy with ejection fraction of only 10%. Currently he is diuresing very well on current dose of diuretic and IV dobutamine. I feel that his diuretics are appropriate and I will defer to cardiology about dobutamine drip. 2. Acute on chronic kidney injury. Kidney function has been more or less stable. We will continue to monitor closely. 3. Hyponatremia. Sodium level is mildly low today and this is related to aggressive diuresis. No intervention is indicated. 4. History of nonsustained ventricular tachycardia. The patient has been doing well on amiodarone without any recurrence of nonsustained ventricular tachycardia. 5. Right leg wound and cellulitis. The patient continues with ceftriaxone intravenously. I would suggest to consider switching him to oral antibiotics or stop it altogether as his cellulitis has resolved and right leg wound is most likely related to chronic edema and likely to improve now as his leg edema has resolved.
[2017-07-21 20:35] VITALS: BP 109/67
[2017-07-22] VITALS (7 sets, daily range): BP systolic 108–124; BP diastolic 61–75
[2017-07-22 05:17] LABS: MEAN CORPUSCULAR HGB CONC 32.6 g/dl (32.0-36.5); MEAN CORPUSCULAR VOLUME 82.8 fl (80.0-96.0); RED CELL DISTRIBUTION WIDTH 15.1 % (11.5-14.5); WHITE BLOOD COUNT 5.7 10^3/uL (4.0-10.0)
[2017-07-22 05:33] LABS: CALCIUM LEVEL 8.7 MG/DL (8.8-10.2); CREATININE FOR GFR 1.73 MG/DL (0.70-1.30); GLOMERULAR FILTRATION RATE 50.5 (>42); MAGNESIUM LEVEL 2.2 MG/DL (1.8-2.4); POTASSIUM SERUM 3.7 MEQ/L (3.5-5.1)
[2017-07-22] MEDS: ACETAMINOPHEN 650MG ER TAB (TYLENOL ARTHRITIS) PO SCH ×3 (06:09→21:03)
[2017-07-22] MEDS: ISOSORBIDE DIN. (ISORDIL) 20 MG TAB PO SCH ×3 (06:09→17:22)
[2017-07-22] MEDS: **hydrALAZINE HCL** 25 MG TAB PO SCH ×3 (06:09→17:23)
[2017-07-22] MEDS: SLF 3 ML SYR IV SCH ×3 (06:10→21:07)
[2017-07-22] MEDS: DOBUTamine HCL 500,000 MCG in APPROPRIATE DILUENT 1 EA IV SCH (07:26)
[2017-07-22] MEDS: HumaLOG INSULIN (NovoLOG) PER UNIT SC SCH ×3 (07:56→17:22)
--- NOTE | 2017-07-22 08:07 | IPN ---
DATE OF SERVICE: 07/22/2017 Mr. Vargas had good weekend. He was started on low-dose dobutamine and the dose of amiodarone was reduced because he essentially completed the loading. He accomplished significant amount of diuresis and even there was a possible to change the IV to oral diuretics. Currently blood pressure 115/70, heart rate has been mostly in 70s. He is afebrile. Saturation 95% on room air. Weight documented this morning 132.3 kg which is about the same as 2 days ago according to our scales but I am not confident that the measurements are accurate. PHYSICAL EXAM: He is alert and oriented. His JVP still slightly over the clavicle in sitting position. Lungs are clear to auscultation. Heart: Exam reveals irregular rhythm with a quiet systolic murmur at the apex. Abdomen is obese but soft. There is still about 1-2+ edema to mid shins. Overall much improved since 2 days ago. LABORATORY: Normal CBC and basic metabolic panel reveals potassium 3.7, BUN 29, creatinine 1.7 and glucose 143. ASSESSMENT/PLAN: Mr. Vargas is a 71-year-old man who has probably dilated cardiomyopathy with severe LV systolic dysfunction and chronic atrial fibrillation. He presented with acutely exacerbated systolic heart failure with concomitant acute on chronic renal failure. We have had trouble with diuresing initially I suspect that in part because he received IV contrast initially but now the renal function has stabilized in the frequency of VT is also diminished. Consequently depressor amines were possible to be instituted and right now he is diuresing successfully on dobutamine. I am going to continue the drip and diuretics and current doses at least one more day. He is still not euvolemic but he is getting much closer. I am optimistic that he will be able to be discharged home this week.
[2017-07-22] MEDS: SPIRONOLACTONE 12.5MG PER 1/2 TABLET PO SCH (08:55)
[2017-07-22] MEDS: ASPIRIN 81 MG ENTERIC TAB PO SCH (08:55)
[2017-07-22] MEDS: TORSEMIDE (DEMADEX) 50 MG PER 1/2 TAB PO SCH ×2 (08:55→17:22)
[2017-07-22] MEDS: CARVedilol 12.5 MG TAB PO SCH ×2 (08:55→21:04)
[2017-07-22] MEDS: POTASSIUM CHLORIDE 10 MEQ SR TABLET PO SCH ×2 (08:56→21:04)
[2017-07-22] MEDS: SENOKOT S TAB PO SCH ×2 (08:56→21:05)
[2017-07-22] MEDS: AcetaZOLAMIDE 250 MG TAB PO SCH (08:56)
[2017-07-22] MEDS: PANTOPRAZOLE 40MG TAB (PROTONIX) PO SCH (08:56)
[2017-07-22] MEDS: AMIODARONE 200 MG TAB (PACERONE) PO SCH ×2 (08:56→21:05)
[2017-07-22] MEDS: APIXABAN 5 MG TAB (ELIQUIS) PO SCH ×2 (08:56→21:05)
[2017-07-22] MEDS: FLUTICASONE PROP 0.05% NASAL SPRAY 16 GM (FLONASE) SCH (08:57)
--- NOTE | 2017-07-22 19:18 | IPN ---
DATE: 07/22/2017 Mr. Vargas is seen this morning on his bedside. He is sitting in the chair as usual at the time of my visit. He diuresed very well yesterday and remains on dobutamine infusion. The patient denies any dyspnea or chest pain. His leg edema has improved significantly. He denies any fever, chills, nausea or vomiting. On physical examination, temperature 97.6 degrees Fahrenheit, heart rate 60 per minute and respiratory rate 20 per minute. Blood pressure 116/67 mmHg and oxygen saturation 95% on room air. Head is atraumatic. Neck veins are now minimally distended. His neck is supple. Ears, nose and throat are unremarkable. Heart exam reveals regular rhythm with systolic murmur grade 2/6. There is no pericardial friction rub. Lungs clear to auscultation bilaterally. Abdomen soft and nontender and without a palpable organomegaly. Extremities have no cyanosis or clubbing. His lower extremity edema is only a trace. Neurologically he is awake, alert and oriented times three. Intake and output records from yesterday showed total intake 1080 and output 5150 with a negative balance of 4070 mL. Today's labs show WBC count 5.7, hemoglobin 13.8 and hematocrit 42.3. Sodium 136 and potassium 3.7. BUN 29 and creatinine 1.73. PROBLEMS: 1. Acute on chronic systolic congestive heart failure. The patient has diuresed significantly and he continues to diurese. He remains on oral diuretics and intravenous dobutamine drip. 2. Acute on chronic kidney disease. Kidney function is slightly improved since yesterday. The patient will continue with potassium supplement in the setting of ongoing diuresis. His other electrolytes are within normal range. 3. Recurrent nonsustained ventricular tachycardia. The patient has been doing well without any further recurrence of ventricular tachycardia since he has been on amiodarone.
--- NOTE | 2017-07-22 20:37 | IPN ---
DATE: 07/22/2017 SUBJECTIVE: The patient is seen and examined in the room today. The patient does not have any acute changes. The patient has noticed more wrinkles in his lower extremities and result from continuous diuresis. OBJECTIVE: VITAL SIGNS: Temperature 97.5, pulse is 65, respirations 20, blood pressure is 119/61, pulse oximetry is 96% in room air. GENERAL: No sign of acute distress. Alert and oriented times three. HEENT: Normocephalic, atraumatic. Extraocular motor grossly intact. CARDIOVASCULAR: Positive S1, S2, irregularly irregular. Positive heart murmur. LUNGS: Clear to auscultation bilaterally. No wheezes or rhonchi. ABDOMEN: Soft, nontender, nondistended. Bowel sounds present. EXTREMITIES: There is some pitting edema bilaterally. The patient started to show some visible wrinkles of the lower extremities. LABORATORY DATA: WBC is 5.7, hemoglobin 13.8, hematocrit 42.3, platelet count 177. Sodium is 136, potassium 3.9, chloride is 100, carbon dioxide 28, BUN 29, creatinine is 1.73, GFR is 50.8, fasting glucose 143, calcium 8.7, magnesium 2.2. ASSESSMENT AND PLAN: 1. Systolic congestive heart failure. Ejection fraction (EF) of 10%. Grease Packer and discount clerk have been assisting in the case. Will defer the medication adjustment to Dr. Biswas and Dr. Ferreira. Currently the patient is on a dopamine drip. The patient is on torsemide, Diamox. 2. History of nonsustained ventricular tachycardia. Previously the patient has been having frequent nonsymptomatic nonsustained ventricular tachycardia, and the patient has a defibrillator due to increased occurrence of the nonsustained ventricular tachycardia. The patient was started on amiodarone, patient is also on Coreg. Since admission, the patient never had an incident of defibrillator activation. Continue monitoring on telemetry. 3. Chronic kidney disease, stage III. Renal function is improving. The patient is currently on active diuretic regimen adjustment. 4. Urinary tract infection, on Rocephin. The patient finished a course of intravenous (IV) Rocephin. Continue monitoring symptoms. 5. Chronic atrial fibrillation. On Coreg, amiodarone and Eliquis. 6. Diabetes. On consistent carbohydrate diet. On sliding scale. On 1.5 liter fluid restriction. 7. Deep vein thrombosis (DVT) prophylaxis. On Eliquis.
[2017-07-23 04:00] VITALS: BP 117/71
[2017-07-23 05:27] LABS: MEAN CORPUSCULAR HEMOGLOBIN 26.9 pg (27.0-33.0); MEAN CORPUSCULAR HGB CONC 32.8 g/dl (32.0-36.5); MEAN CORPUSCULAR VOLUME 81.9 fl (80.0-96.0); RED CELL DISTRIBUTION WIDTH 15.2 % (11.5-14.5)
[2017-07-23 06:03] LABS: CALCIUM LEVEL 8.4 MG/DL (8.8-10.2); CREATININE FOR GFR 1.74 MG/DL (0.70-1.30); GLOMERULAR FILTRATION RATE 50.2 (>42); POTASSIUM SERUM 3.6 MEQ/L (3.5-5.1)
[2017-07-23] MEDS: SLF 3 ML SYR IV SCH ×3 (06:05→21:00)
[2017-07-23] MEDS: ISOSORBIDE DIN. (ISORDIL) 20 MG TAB PO SCH ×3 (06:05→17:08)
[2017-07-23] MEDS: ACETAMINOPHEN 650MG ER TAB (TYLENOL ARTHRITIS) PO SCH ×3 (06:05→21:00)
[2017-07-23] MEDS: **hydrALAZINE HCL** 25 MG TAB PO SCH (06:07)
[2017-07-23 07:20] VITALS: BP 104/65
[2017-07-23] MEDS ORDERED: POTASSIUM CHLORIDE 10 MEQ SR TABLET PO ONE (07:45)
[2017-07-23] MEDS: HumaLOG INSULIN (NovoLOG) PER UNIT SC SCH ×3 (08:27→17:08)
[2017-07-23] MEDS: SENOKOT S TAB PO SCH ×2 (08:28→21:00)
[2017-07-23] MEDS: CARVedilol 12.5 MG TAB PO SCH ×2 (08:28→20:58)
[2017-07-23] MEDS: APIXABAN 5 MG TAB (ELIQUIS) PO SCH ×2 (08:28→20:58)
[2017-07-23] MEDS: ASPIRIN 81 MG ENTERIC TAB PO SCH (08:29)
[2017-07-23] MEDS: PANTOPRAZOLE 40MG TAB (PROTONIX) PO SCH (08:29)
[2017-07-23] MEDS: AMIODARONE 200 MG TAB (PACERONE) PO SCH (08:29)
[2017-07-23] MEDS: AcetaZOLAMIDE 250 MG TAB PO SCH (08:29)
[2017-07-23] MEDS: SPIRONOLACTONE 12.5MG PER 1/2 TABLET PO SCH (08:33)
[2017-07-23] MEDS: TORSEMIDE (DEMADEX) 50 MG PER 1/2 TAB PO SCH ×2 (08:33→17:08)
[2017-07-23] MEDS: FLUTICASONE PROP 0.05% NASAL SPRAY 16 GM (FLONASE) SCH (08:37)
--- NOTE | 2017-07-23 08:46 | IPN ---
DATE: 07/23/2017 Mr. Vargas again had uneventful day and night yesterday and last night he was able to sleep, did not have any paroxysmal nocturnal dyspnea or orthopnea. He was able to ambulate somewhat and generally reports overall major improvement. No chest pain. No palpitations. Telemetry monitoring reveals mostly atrial fibrillation that is rate controlled. He had one ventricular triplet. Blood pressure 104/65, heart rate is mostly 60s and 70s. He is afebrile. Saturation 94% on room air. His balance was documented as 4300 negative yesterday. Weight is 126.7 kg, which would indicate approximately 20 kg weight loss since admission. His jugular venous pulse (JVP) is no longer above clavicle in sitting position. Lungs are clear to auscultation. Abdomen is soft and nontender. Extremities still have about 2+ edema to about once third to mid shins. No skin lesions and neurologically he is intact. Laboratories: Basic metabolic panel reveals potassium 3.6, BUN 31, creatinine 1.74, GFR 50, and glucose 152. CBC: Hemoglobin 14, hematocrit 44, and platelet count 185,000. ASSESSMENT AND PLAN: Mr. Vargas is a 71-year-old -[place] man who has chronic systolic/diastolic congestive heart failure due to most likely nonischemic cardiomyopathy and severe left ventricular systolic dysfunction. Left ventricle ejection fraction is estimated around 10%. He also has chronic atrial fibrillation. He presented with acutely exacerbated heart failure, which was further complicated by acute on chronic renal failure. Nevertheless, with diuresis and intermittent use of pressor amines, he seems to be progressing and in the last few days his condition is steadily improving. I would continue current management aiming to accomplishing as vigorous diuresis as possible. I am going to increase the dose of hydralazine to 50 every 8 hours, which was his initial outpatient regimen. Will continue dobutamine for at least one more day. I am very optimistic that he is approaching euvolemic status and I do expect that he will be discharged by the end of this week. I am going to cut down the amiodarone dose to just 200 mg a day and I am going to ask cardiac rehab to see him regarding congestive heart failure (CHF) teaching.
[2017-07-23] MEDS: POTASSIUM CHLORIDE 10 MEQ SR TABLET PO SCH ×2 (10:00→20:59)
[2017-07-23 12:00] VITALS: BP 102/63
--- NOTE | 2017-07-23 12:11 | IPNPDOC ---
Date Seen The patient was seen on 07/23/17. Progress Note SUBJECTIVE: Patient tells me that he is feeling well and that he has no specific complaints she denies chest pressure shortness of breath nausea vomiting diarrhea he tells me he continues to make large amounts of urine OBJECTIVE PHYSICAL EXAMINATION: VITAL SIGNS: Please see below. GENERAL: Morbidly obese elderly -[place] male sitting in a recliner he does not appear to be any acute distress whatsoever HEENT: Pupils equally round reactive light he has moist mucous membranes there does not appear to be elevation in his central venous pressure CARDIOVASCULAR: S1-S2 irregular. RESPIRATORY: Fairly clear to auscultation some diminished breath sounds at the bases. ABDOMINAL: Obese bowel sounds present abdomen soft EXTREMITIES: 2+ edema bilaterally LABORATORY DATA: Please see below. MICROBIOLOGY: Please see below. IMAGING: No recent imaging Echocardiogram: 1. Moderately dilated left ventricle with severe global LV hypokinesis and severe reduction of overall LV systolic function. LVEF 10% by visual estimate. 2. Structurally normal appearing mitral leaflets. Moderate mitral regurgitation. 3. Severe left atrial dilatation. 4. Mild dilatation of the proximal ascending aorta. 5. Structurally normal appearing tricuspid leaflets. Moderate tricuspid regurgitation. Suggestive of moderate elevation of pulmonary artery systolic pressure and estimated right ventricle systolic pressure. Normal right ventricle systolic function. 6. 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 Elevated central venous pressure of at least 20 mmHg. 7. Mild aortic valve sclerosis of a 3-cusp aortic valve. 8. Small pericardial effusion. No diastolic chamber collapse. 9. Presence of an ICD lead coursing toward the right ventricle apex position.. DVT prophylaxis ordered?: Eliquis ASSESSMENT AND PLAN: This is a 71-year-old and man with decompensated systolic congestive heart failure. PROBLEMS: 1. Decompensated severe systolic diastolic congestive heart failure: His ejection fraction is around 10% he continues to undergo aggressive diuresis with dobutamine to augment torsemide. He is on Aldactone and hydralazine and isosorbide dinitrate as well as Coreg. 2. Atrial fibrillation: Rate controlled with Coreg and amiodarone anticoagulated with Eliquis. 3. Nonsustained ventricular tachycardia: Status post AICD he is having fewer events with amiodarone is continued on Coreg. 4. Chronic kidney disease: We'll function is stable nephrology's help is greatly appreciated. He is continued on Diamox 5. Urinary tract infection: The patient completed a course of Rocephin 6. Diabetes: Consistent carb diet with sliding scale insulin statistics are controlled DISPOSITION: He is cleared by physical therapy we suspect he may be ready for discharge within the coming days. VS, I&O, 24H, Fishbone Vital Signs/I&O Vital Signs Date Time Temp Pulse Resp B/P (MAP) Pulse Ox O2 Delivery O2 Flow Rate FiO2 07/23/17 08:28 56 104/65 07/23/17 07:20 97.5 18 94 Room Air I&O- Last 24 Hours up to 6 AM 07/24/17 06:00 Intake Total 12 ml Output Total 875 ml Balance -863 ml Laboratory Data 24H LABS Laboratory Tests 2 07/22/17 16:53: Bedside Glucose (Misc Panel) 173H 07/23/17 04:48: Nucleated Red Blood Cells % (auto) 0.0, Anion Gap 10, Glomerular Filtration Rate 50.2, Blood Urea Nitrogen 31H, Creatinine 1.74H, Sodium Level 136, Potassium Level 3.6, Chloride Level 100, Carbon Dioxide Level 26, Calcium Level 8.4L 07/23/17 11:43: Bedside Glucose (Misc Panel) 139H CBC/BMP Laboratory Tests 07/23/17 04:48 Red Blood Count 5.40, Mean Corpuscular Volume 81.9, Mean Corpuscular Hemoglobin 26.9 L, Mean Corpuscular Hemoglobin Concent 32.8, Red Cell Distribution Width 15.2 H, Calcium Level 8.4 L AMISHA IBRAHIM MD Jul 23, 2017 12:11
[2017-07-23] MEDS: **hydrALAZINE** 50 MG TAB PO SCH ×2 (13:34→21:00)
[2017-07-23 16:00] VITALS: BP 99/62
[2017-07-23] MEDS: DOBUTamine HCL 500,000 MCG in APPROPRIATE DILUENT 1 EA IV SCH (18:18)
[2017-07-23 19:55] VITALS: BP 115/76
--- NOTE | 2017-07-23 20:15 | IPN ---
DATE: 07/23/2017 Mr. Vargas is seen this morning on his bedside. He is sitting in the chair as usual. He feels well and denies any dyspnea or chest pain. His leg edema has improved significantly. The patient denies any nausea, vomiting, dysuria, hematuria, fever or chills. He remains on dobutamine drip and has been diuresing very well. Intake and output records from yesterday showed total intake 1776 and output 6125 mL with negative fluid balance of over 4.3 liters. He weighed 126.7 kg today. His head is atraumatic. Neck is supple and jugular venous distention (JVD) is only minimally elevated. He has no oral thrush or ulcers and mucous membranes are moist and healthy. Ears, nose and throat are unremarkable. Heart: Sounds are regular with systolic murmur, grade 2 x 6. Lungs: Clear to auscultation bilaterally. Abdomen: Soft and nontender. Bowel sounds are present. Extremities: Have no cyanosis or clubbing. Lower extremity edema has almost completely resolved. Neurologically he is awake, alert and oriented times three. Today's labs show WBC count 6.0, hemoglobin 14.5 and hematocrit 44.2. Platelets 185. Sodium 136 and potassium 3.6. BUN 31 and creatinine 1.74. PROBLEMS: 1. Acute on chronic systolic congestive heart failure. The patient has diuresed very heavily over the last 48 hours with a negative fluid balance of about 8 liters. He remains on dobutamine drip and oral diuretics. He continues to diurese well. My feeling is that he is at risk for over diuresis and we may need to cut down the dose of diuretic in next 24 hours. 2. Hypokalemia. This is related to aggressive diuresis. The patient will be given extra dose of potassium chloride 40 mEq and he will continue with 20 mEq twice a day. He is also on spironolactone, which will be continued. 3. Acute on chronic kidney disease. Kidney function is stable for last 3 days. At this point, we will continue to monitor his kidney function and electrolytes on daily basis as the patient is aggressively diuresed.
[2017-07-23 23:59] VITALS: BP 118/73
[2017-07-24 04:00] VITALS: BP 116/74
[2017-07-24] MEDS: SLF 3 ML SYR IV SCH ×3 (06:00→22:01)
[2017-07-24 06:06] LABS: CREATININE FOR GFR 1.79 MG/DL (0.70-1.30); GLOMERULAR FILTRATION RATE 48.5 (>42); POTASSIUM SERUM 3.6 MEQ/L (3.5-5.1)
[2017-07-24] MEDS: ACETAMINOPHEN 650MG ER TAB (TYLENOL ARTHRITIS) PO SCH ×3 (06:06→22:01)
[2017-07-24] MEDS: ISOSORBIDE DIN. (ISORDIL) 20 MG TAB PO SCH ×3 (06:21→17:22)
[2017-07-24] MEDS: **hydrALAZINE** 50 MG TAB PO SCH ×3 (06:21→22:01)
--- NOTE | 2017-07-24 07:33 | IPN ---
DATE: 07/24/2017 Mr. Vargas had uneventful day and night, again was able to sleep in bed principally in horizontal position without any paroxysmal nocturnal dyspnea (PND) or orthopnea. He denies any chest pain or shortness of breath. Peripheral edema has almost completely resolved. Vital signs: Blood pressure 124/84. Heart rate has been mostly in 60s and 70s. It is atrial fibrillation with occasional on demand ventricular paced beat. He had 110 beat run of nonsustained ventricular tachycardia this morning. Saturation is 92% on room air. His fluid balance yesterday was again about 3-1/2 liters negative. Weight has been documented 124.3 kg. His jugular venous pulse (JVP) no longer appears elevated. Lungs are clear to auscultation. Heart exam reveals irregular rhythm. There is still murmur suggestive of MR and TR, but getting much more faint. Abdomen is soft, nontender. I do not appreciate any evidence for ascites and peripheral edema is down to almost none. Neurologically, he is intact. Laboratory bynum, basic metabolic panel reveals potassium 3.6, BUN 32, creatinine 1.8 for GFR 48, glucose 155. CBC: Hemoglobin 14.5, hematocrit 44 and platelet count 185,000. ASSESSMENT AND PLAN: Mr. Vargas is a 71-year-old -[place] man who has probably nonischemic cardiomyopathy with severe left ventricular (LV) systolic dysfunction and chronic atrial fibrillation. He presented with acutely exacerbated heart failure together with acutely worsened renal failure. After a somewhat difficult hospital course, he finally is getting better and ready for discharge. I am going to discontinue dobutamine today. Will continue his remaining medications, including hydralazine and isosorbide dinitrate and Coreg. I am hoping that there will not be any dramatic fluid retention overnight and that we will see again virtually disappearance of ventricular ectopy, at which point, I think he can be discharged home tomorrow. As far as the atrial fibrillation (AFib) is concerned, it is well rate-controlled and he has been anticoagulated with apixaban, and finally, as far as frequent episodes of ventricular tachycardia are concerned, they subsided substantially with use of amiodarone. I will keep the patient on amiodarone for foreseeable future, at least for a month or so and may even attempt cardioversion on outpatient basis depending what we learn from his records from [place].
[2017-07-24 08:00] VITALS: BP 111/77
[2017-07-24] MEDS: HumaLOG INSULIN (NovoLOG) PER UNIT SC SCH ×3 (08:24→17:23)
[2017-07-24] MEDS: AMIODARONE 200 MG TAB (PACERONE) PO SCH (08:24)
[2017-07-24] MEDS: SENOKOT S TAB PO SCH ×2 (08:25→22:01)
[2017-07-24] MEDS: CARVedilol 12.5 MG TAB PO SCH ×2 (08:25→22:00)
[2017-07-24] MEDS: ASPIRIN 81 MG ENTERIC TAB PO SCH (08:25)
[2017-07-24] MEDS: TORSEMIDE (DEMADEX) 50 MG PER 1/2 TAB PO SCH ×2 (08:25→17:22)
[2017-07-24] MEDS: AcetaZOLAMIDE 250 MG TAB PO SCH (08:25)
[2017-07-24] MEDS: SPIRONOLACTONE 12.5MG PER 1/2 TABLET PO SCH (08:25)
[2017-07-24] MEDS: POTASSIUM CHLORIDE 10 MEQ SR TABLET PO SCH ×2 (08:25→22:01)
[2017-07-24] MEDS: PANTOPRAZOLE 40MG TAB (PROTONIX) PO SCH (08:25)
[2017-07-24] MEDS: APIXABAN 5 MG TAB (ELIQUIS) PO SCH ×2 (08:26→22:00)
[2017-07-24] MEDS: FLUTICASONE PROP 0.05% NASAL SPRAY 16 GM (FLONASE) SCH (08:26)
--- NOTE | 2017-07-24 11:00 | IPNPDOC ---
Date Seen The patient was seen on 07/24/17. Progress Note SUBJECTIVE: Patient tells me that he is feeling well and that he has no specific complaints, he denies chest pressure shortness of breath nausea vomiting or diarrhea OBJECTIVE PHYSICAL EXAMINATION: VITAL SIGNS: Please see below. GENERAL: Morbidly obese elderly -[place] male sitting in a bed he does not appear to be any acute distress whatsoever HEENT: Pupils equally round reactive light he has moist mucous membranes there does not appear to be elevation in his central venous pressure CARDIOVASCULAR: S1-S2 irregular. RESPIRATORY: Fairly clear to auscultation some diminished breath sounds at the bases. ABDOMINAL: Obese bowel sounds present abdomen soft EXTREMITIES: trace edema bilaterally LABORATORY DATA: Please see below. MICROBIOLOGY: Please see below. IMAGING: No recent imaging Echocardiogram: 1. Moderately dilated left ventricle with severe global LV hypokinesis and severe reduction of overall LV systolic function. LVEF 10% by visual estimate. 2. Structurally normal appearing mitral leaflets. Moderate mitral regurgitation. 3. Severe left atrial dilatation. 4. Mild dilatation of the proximal ascending aorta. 5. Structurally normal appearing tricuspid leaflets. Moderate tricuspid regurgitation. Suggestive of moderate elevation of pulmonary artery systolic pressure and estimated right ventricle systolic pressure. Normal right ventricle systolic function. 6. 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 Elevated central venous pressure of at least 20 mmHg. 7. Mild aortic valve sclerosis of a 3-cusp aortic valve. 8. Small pericardial effusion. No diastolic chamber collapse. 9. Presence of an ICD lead coursing toward the right ventricle apex position.. DVT prophylaxis ordered?: Eliquis ASSESSMENT AND PLAN: This is a 71-year-old and man with decompensated systolic congestive heart failure. PROBLEMS: 1. Decompensated severe systolic diastolic congestive heart failure, possibly non ichaemic cardiomyopathy: His ejection fraction is around 10% he continues to undergo aggressive diuresis with dobutamine to augment torsemide. He is on Aldactone and hydralazine and isosorbide dinitrate as well as Coreg. He is approaching euvolemia 2. Atrial fibrillation: Rate controlled with Coreg and amiodarone anticoagulated with Eliquis. 3. Nonsustained ventricular tachycardia: Status post AICD he is having fewer events with amiodarone is continued on Coreg. f/u outpatient with Dr. Biswas, he did have some ectopy early this AM, will hopefully resolve once dobutamine is d/c'd 4. Chronic kidney disease: We'll function is stable nephrology's help is greatly appreciated. He is continued on Diamox 5. Urinary tract infection: The patient completed a course of Rocephin 6. Diabetes: Consistent carb diet with sliding scale insulin statistics are controlled DISPOSITION: He is cleared by physical therapy we suspect he may be ready for discharge hopefullly within next 24 hours VS, I&O, 24H, Fishbone Vital Signs/I&O Vital Signs Date Time Temp Pulse Resp B/P (MAP) Pulse Ox O2 Delivery O2 Flow Rate FiO2 07/24/17 08:25 80 111/77 07/24/17 08:00 97.0 18 93 Room Air I&O- Last 24 Hours up to 6 AM 07/25/17 06:00 Intake Total 120 ml Output Total 300 ml Balance -180 ml Laboratory Data 24H LABS Laboratory Tests 2 07/23/17 11:43: Bedside Glucose (Misc Panel) 139H 07/23/17 16:41: Bedside Glucose (Misc Panel) 130H 07/24/17 05:39: Anion Gap 6L, Glomerular Filtration Rate 48.5, Blood Urea Nitrogen 32H, Creatinine 1.79H, Sodium Level 136, Potassium Level 3.6, Chloride Level 100, Carbon Dioxide Level 30, Calcium Level 9.0 CBC/BMP Laboratory Tests 07/24/17 05:39 Calcium Level 9.0 AMISHA IBRAHIM MD Jul 24, 2017 11:00
[2017-07-24 12:00] VITALS: BP 113/67
--- NOTE | 2017-07-24 12:49 | IPN ---
DATE OF VISIT: 07/24/2017 Mr. Vargas is seen this morning on his bedside. He is now off dobutamine drip and is currently sitting in the chair. He is feeling well and denies any complaints. He has no dyspnea, chest pain, palpitations, nausea, vomiting, fever, or chills. Lower extremity edema has resolved. Intake and output records from yesterday showed total intake 864 and output 4275. He weighed 124.3 kg today. His head is atraumatic. Neck is supple, and jugular venous distention (JVD) is only minimally elevated. Ears, nose, and throat are unremarkable. Heart sounds are regular with systolic murmur grade 2/6. Lungs sound clear to auscultation bilaterally. Abdomen: Soft and nontender and without any palpable organomegaly. Bowel sounds are normal. Extremities: Have trace of edema and no cyanosis or clubbing. Neurologically, he is awake, alert, and oriented times three. Today's laboratories show WBC count 6.0, hemoglobin 14.5, and hematocrit 44.2. Sodium 136 and potassium 3.6. BUN 32 and creatinine 1.79. PROBLEMS: 1. Acute on chronic systolic congestive heart failure. The patient has diuresed very well with loss of over 50 pounds weight since admission. He seems to be euvolemic now and will continue with current diuretics. His dobutamine drip has already been stopped. 2. Hypokalemia. Potassium level is stable but low. He has been on potassium supplement 20 mEq twice a day, which should be continued. He has very well diuresed and not likely to diurese as much as he did over the last 3 days. We anticipate that with current potassium supplement, his potassium level will improve above 4.0. 3. Acute and chronic kidney disease. His kidney function has been stable at this level. The patient will be followed up as an outpatient in our office. DISPOSITION: From a renal standpoint, the patient can be discharged to home and will followup in our office in a couple of weeks.
[2017-07-24 16:00] VITALS: BP 107/63
[2017-07-24 20:00] VITALS: BP 111/71
[2017-07-25] VITALS: BP 122/67
[2017-07-25 04:00] VITALS: BP 111/72
[2017-07-25] MEDS: ACETAMINOPHEN 650MG ER TAB (TYLENOL ARTHRITIS) PO SCH (05:55)
[2017-07-25] MEDS: **hydrALAZINE** 50 MG TAB PO SCH (05:56)
[2017-07-25] MEDS: ISOSORBIDE DIN. (ISORDIL) 20 MG TAB PO SCH (05:56)
[2017-07-25] MEDS: SLF 3 ML SYR IV SCH (05:56)
[2017-07-25 06:27] LABS: CALCIUM LEVEL 9.2 MG/DL (8.8-10.2); CREATININE FOR GFR 1.71 MG/DL (0.70-1.30); GLOMERULAR FILTRATION RATE 51.2 (>42); POTASSIUM SERUM 3.6 MEQ/L (3.5-5.1)
[2017-07-25 07:40] VITALS: BP 114/64
[2017-07-25] MEDS ORDERED: POTASSIUM CHLORIDE 10 MEQ SR TABLET PO ONE (07:45)
[2017-07-25] MEDS: PANTOPRAZOLE 40MG TAB (PROTONIX) PO SCH (08:18)
[2017-07-25] MEDS: ASPIRIN 81 MG ENTERIC TAB PO SCH (08:18)
[2017-07-25 08:19] VITALS: BP 117/68
[2017-07-25] MEDS: AMIODARONE 200 MG TAB (PACERONE) PO SCH (08:19)
[2017-07-25] MEDS: TORSEMIDE (DEMADEX) 50 MG PER 1/2 TAB PO SCH (08:19)
[2017-07-25] MEDS: SPIRONOLACTONE 12.5MG PER 1/2 TABLET PO SCH (08:19)
[2017-07-25] MEDS: SENOKOT S TAB PO SCH (08:19)
[2017-07-25] MEDS: CARVedilol 12.5 MG TAB PO SCH (08:19)
[2017-07-25] MEDS: AcetaZOLAMIDE 250 MG TAB PO SCH (08:20)
[2017-07-25] MEDS: POTASSIUM CHLORIDE 10 MEQ SR TABLET PO SCH (08:20)
[2017-07-25] MEDS: FLUTICASONE PROP 0.05% NASAL SPRAY 16 GM (FLONASE) SCH (08:22)
[2017-07-25] MEDS: HumaLOG INSULIN (NovoLOG) PER UNIT SC SCH (08:22)
[2017-07-25] MEDS: APIXABAN 5 MG TAB (ELIQUIS) PO SCH (08:23)
[2017-07-25] MEDS ORDERED: AMIO200T PO (08:27)
[2017-07-25] MEDS ORDERED: POTA10CA PO (08:27)
[2017-07-25] MEDS ORDERED: ISOS20TAB PO (08:27)
[2017-07-25] MEDS ORDERED: ACET250T2 PO (08:27)
[2017-07-25] MEDS ORDERED: ALDA25TA2 PO (08:27)
[2017-07-25] MEDS ORDERED: TORS100T PO (08:27)
--- NOTE | 2017-07-25 08:34 | IPN ---
DATE: 07/25/2017 Mr. Vargas had a good night. He slept in horizontal position and did not have any paroxysmal nocturnal dyspnea, orthopnea. He is eager to go home. Blood pressure 114/64, heart rate has been mostly in 60s. He is afebrile. Saturation 93% on room air. Fluid balance yesterday was documented about 1700 negative, weight 124.3, though is unchanged. Overall, he lost approximately 50 pounds during this hospitalization. Jugular venous pulse no longer appears to be elevated above clavicle. Lungs are clear. Heart exam reveals irregularly irregular rhythm. There is still murmur of MR and TR, but they are rather faint. Abdomen is soft, nontender. There is still trace peripheral edema. Neurologically he is intact. LABORATORY: Normal CBC and basic metabolic panel reveals potassium 3.6, BUN 34, creatinine 1.74, GFR 51 and glucose 153 ASSESSMENT/PLAN: Mr. Vargas is a 71-year-old man who presented with acutely exacerbated systolic congestive heart failure with concomitant acute on chronic renal failure. After prolonged hospitalization, he eventually appears euvolemic. I think that he can be discharged home essentially on current regimen. It is not much changed compared to his preadmission meds with the exception of torsemide instead of furosemide and also addition of amiodarone. I spoke with Dr. Pickett. I believe we can discharge him on current medications. I will see him in followup either late next week or week after.
--- NOTE | 2017-07-25 12:27 | DSES ---
DATE OF ADMISSION: 07/07/2017 DATE OF DISCHARGE: 07/25/17 DISCHARGE DIAGNOSIS: Decompensated severe systolic and diastolic congestive heart failure. SECONDARY DIAGNOSES: Acute on chronic kidney insufficiency. Nonsustained ventricular tachycardia. Dilated cardiomyopathy. Atrial fibrillation. Urinary tract infection. Diabetes. CONSULTS: Nephrology service Dr. Ferreira. Cardiology service Dr. Biswas. HOSPITAL COURSE: The patient is a 71-year-old man who is admitted on 07/07/2017 who recently moved [facility] only within the last several weeks. He was diagnosed with a cardiac condition approximately a year and a half prior to this and with very limited understanding of his disease. He was started on heart failure regimen at the time and a defibrillator was implanted. Patient was admitted to the progressive care unit and was found to be grossly volume overloaded. He was aggressively diuresed, was actually placed on dobutamine drip to augment diuresis. He was followed very closely by cardiology and nephrology services. He lost almost 50 pounds during his stay here. Echocardiogram at the time of admission revealed dilated left ventricle with ejection fraction of 10%, severe left atrial dilation, mild dilation of the proximal ascending aorta. The patient's clinical status gradually improved. Medications were titrated. At the present time, the patient is feeling well. He is asymptomatic. He is happy with the improvement in his clinical status. His symptoms have resolved. He denies any chest pain, shortness of breath, fevers, chills, nausea, vomiting or diarrhea. OBJECTIVE: Vital signs: Temperature 97, pulse 63, respiratory rate 18, blood pressure 114/64, 02 sat 93% on room air. General: He is a pleasant, obese, elderly -[place] male sitting up in bed. He does not appear to be in any acute distress whatsoever. HEENT: Cranial nerves II-XII are grossly intact. There is no elevation of central venous pressure. Cardiovascular exam: S1, S2, irregularly irregular. He is not tachycardic. Respiratory exam: Quite clear. I do not appreciate any rales. Abdominal exam: Obese. Extremities: There is no appreciable edema bilaterally. LABORATORY STUDIES: WBC 6.0, hemoglobin 14.5, platelet count 185. Chemistry panel: Sodium 136, potassium 3.6, chloride 99, bicarbonate 28, BUN 34, creatinine 1.6. He had a TSH within normal limits. During his stay, he was treated for a urinary tract infection which was proteus mirabilis. He completed the course of antibiotics while here. IMAGING: He had a chest x-ray on 07/21/2017 that revealed a few [place] B lines. No pleural effusions. Mild cephalization. He had a CT of the abdomen and pelvis on 07/12/2017 which revealed diverticulosis, nonobstructing right renal calculus , nonspecific pericardial thickening. He had a renal ultrasound that was unremarkable. A CT scan of the chest that revealed hepatomegaly, pulmonary venous congestion, cardiomegaly. ASSESSMENT AND PLAN: This is a 71-year-old man who was admitted for decompensated severe systolic/diastolic congestive heart failure, possibly nonischemic cardiomyopathy. PROBLEMS: 1. Decompensated congestive heart failure. His ejection fraction is 10%. He has an automatic implantable cardioverter-defibrillator (AICD) in place. He has been aggressive diuresed during his stay. At this time, he does appear to be significantly improved and very close to euvolemia if not euvolemic. He is continued on hydralazine and nitrates, spironolactone, carvedilol and torsemide 50 mg twice a day. He will followup with Dr. Biswas within the next week or two. He has been set up with a new primary care provider appointment. 2. Atrial fibrillation. Rate controlled with Coreg, amiodarone and he is anticoagulated with Eliquis. 3. Nonsustained ventricular tachycardia. He is status post automatic implantable cardioverter-defibrillator (AICD). He has had fewer episodes since discontinuing his dobutamine drip as well as the addition of amiodarone. He is also continued on Coreg. 4. Acute on chronic kidney injury likely related to his fluid overload status. He was aggressive diuresed which he tolerated quite well. Nephrology's help was greatly appreciated. He is continued on Diamox and his diuretic regimen. 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 He is to followup with nephrology within the next 2 weeks. 5. Urinary tract infection with proteus mirabilis. He completed a course of Rocephin while in the hospital. 6. Diabetes. He is on a consistent carbohydrate diet. His finger sticks were controlled while in the hospital. He will be restarted on his glipizide and Januvia upon discharge. DISPOSITION: The patient is being discharged home. He was given a script for a rolling walker. He is to followup with P[facility] Gaona on 08/06/2017 at 10:45 a.m., with Dr. Ferreira on 08/07/2017 at 8:40 a.m., Dr. Biswas within the next 1-2 weeks. Activity is as tolerated. He is to have a 2 gram sodium, fluid restricted diet. MEDICATIONS AT TIME OF DISCHARGE: - acetazolamide 250 mg daily - amiodarone 200 mg daily - isosorbide dinitrate 20 mg three times daily - potassium chloride 20 meq twice a day - spironolactone 12.5 mg every morning - torsemide 50 mg twice a day - acetaminophen 650 mg every 8 hours - Eliquis 5 mg twice a day - aspirin 81 mg daily - carvedilol 25 mg twice a day - Flonase two sprays daily - glipizide 5 mg daily - hydralazine 50 mg three times a day - Januvia 50 mg daily Greater than 30 minutes spent organizing disposition. [facility]
== END 2017-07-25 11:19 | disposition home health service (06) | DRG 291 ==
LOC: EDSEX 01:35 → EDBD 01:35 → M ED 01:35 → M ED INP 05:52 → M PCU 15:55
PROVIDERS: ADMIT Hospitalist; ATTEND Internal Medicine
DX: I13.0 Hypertensive heart and chronic kidney disease with heart failure and stage 1 through stage 4 chronic kidney disease, or unspecified chronic kidney disease (principal); I50.41 Acute combined systolic (congestive) and diastolic (congestive) heart failure; I47.2 Ventricular tachycardia; N17.9 Acute kidney failure, unspecified; E87.0 Hyperosmolality and hypernatremia; R18.8 Other ascites; L03.115 Cellulitis of right lower limb; N39.0 Urinary tract infection, site not specified; L97.929 Non-pressure chronic ulcer of unspecified part of left lower leg with unspecified severity; L97.919 Non-pressure chronic ulcer of unspecified part of right lower leg with unspecified severity; E11.622 Type 2 diabetes mellitus with other skin ulcer; N18.3 Chronic kidney disease, stage 3 (moderate); E66.01 Morbid (severe) obesity due to excess calories; I36.0 Nonrheumatic tricuspid (valve) stenosis; I48.2 Chronic atrial fibrillation; B96.4 Proteus (mirabilis) (morganii) as the cause of diseases classified elsewhere; Z79.01 Long term (current) use of anticoagulants; I34.0 Nonrheumatic mitral (valve) insufficiency; Z95.810 Presence of automatic (implantable) cardiac defibrillator; Z79.899 Other long term (current) drug therapy; Z79.82 Long term (current) use of aspirin; E87.6 Hypokalemia

== ENCOUNTER → 2018-01-03 | Outpatient (CLI) | payer OTHER ==
[2018-01-03 13:21] LABS: BASO % 0.6 % (0.0-1.0); EOS # 0.1 10^3/uL (0.0-0.50); EOS % 1.3 % (0.0-3.0); HEMATOCRIT 51.9 % (42.0-52.0); IMMATURE GRANULOCYTE % 0.3 % (0-3.0); LYMPH # 1.2 10^3/uL (1.5-4.5); LYMPH % 17.4 % (24.0-44.0); MEAN CORPUSCULAR HGB CONC 32.8 g/dl (32.0-36.5); MEAN CORPUSCULAR VOLUME 88.6 fl (80.0-96.0); MONO # 0.7 10^3/uL (0.0-0.8); MONO % 9.6 % (0.0-5.0); NEUTROPHILS # 4.8 10^3/uL (1.8-7.7); NEUTROPHILS % 70.8 % (36.0-66.0); PLATELET COUNT, AUTOMATED 177 10^3/uL (150-450); RED BLOOD COUNT 5.86 10^6/uL (4.30-6.10); RED CELL DISTRIBUTION WIDTH 15.9 % (11.5-14.5); WHITE BLOOD COUNT 6.7 10^3/uL (4.0-10.0)
[2018-01-03 13:29] LABS: APPEARANCE, URINE CLEAR (CLEAR); BACTERIA, URINE AUTO 1+ (NEGATIVE); BILIRUBIN, URINE AUTO NEGATIVE (NEGATIVE); BLOOD, URINE BLOOD NEGATIVE (NEGATIVE); COLOR, URINE YELLOW (YELLOW); GLUCOSE, URINE (UA) AUTO NEGATIVE (NEGATIVE); KETONE, URINE AUTO NEGATIVE (NEGATIVE); LEUKOCYTE ESTERASE, URINE AUTO 2+ (NEGATIVE); MUCUS, URINE SMALL (NEGATIVE); NITRITE, URINE AUTO NEGATIVE (NEGATIVE); PROTEIN, URINE AUTO 2+ mg/dL (NEGATIVE); RBC, URINE AUTO 2 /HPF (0-3); SPECIFIC GRAVITY URINE AUTO 1.009 (1.002-1.035); SQUAMOUS EPITHELIAL CELL UR AU 0 /HPF (0-6); UROBILINOGEN, URINE AUTO 0.2 mg/dL (0.0-2.0); WBC, URINE AUTO 20 /HPF (0-3)
[2018-01-03 13:49] LABS: ALBUMIN 3.9 GM/DL (3.2-5.2); ANION GAP 6 MEQ/L (8-16); BLOOD UREA NITROGEN 22 MG/DL (7-18); CALCIUM LEVEL 9.4 MG/DL (8.8-10.2); CARBON DIOXIDE LEVEL 34 MEQ/L (21-32); CHLORIDE LEVEL 99 MEQ/L (98-107); CREATININE FOR GFR 1.75 MG/DL (0.70-1.30); GLOMERULAR FILTRATION RATE 49.7 (>42); GLUCOSE, FASTING 132 MG/DL (70-100); MAGNESIUM LEVEL 2.1 MG/DL (1.8-2.4); PHOSPHORUS LEVEL 2.8 MG/DL (2.5-4.9); POTASSIUM SERUM 3.9 MEQ/L (3.5-5.1); SODIUM LEVEL 139 MEQ/L (136-145); URIC ACID 9.6 MG/DL (3.5-7.2)
== END ==
LOC: M WUC 09:34
DX: I50.22 Chronic systolic (congestive) heart failure (principal); I47.2 Ventricular tachycardia; N17.9 Acute kidney failure, unspecified; M61.561 Other ossification of muscle, right lower leg; M61.562 Other ossification of muscle, left lower leg; Z96.651 Presence of right artificial knee joint; Z96.652 Presence of left artificial knee joint; M25.561 Pain in right knee
CPT/HCPCS: 83735

== ENCOUNTER → 2018-01-03 | Outpatient (CLI) | payer OTHER | LOC: M WUC 09:37 | DX: M61.561 Other ossification of muscle, right lower leg (principal); M61.562 Other ossification of muscle, left lower leg; Z96.651 Presence of right artificial knee joint; Z96.652 Presence of left artificial knee joint; M25.561 Pain in right knee | CPT/HCPCS: 73560 ==

== ENCOUNTER → 2018-02-21 | Outpatient (REF) | payer MEDICARE ==
[2018-02-21 12:45] LABS: ANION GAP 5 MEQ/L (8-16); BLOOD UREA NITROGEN 21 MG/DL (7-18); CALCIUM LEVEL 9.3 MG/DL (8.8-10.2); CARBON DIOXIDE LEVEL 34 MEQ/L (21-32); CHLORIDE LEVEL 101 MEQ/L (98-107); CREATININE FOR GFR 1.92 MG/DL (0.70-1.30); GLOMERULAR FILTRATION RATE 44.6 (>42); GLUCOSE, FASTING 156 MG/DL (70-100); POTASSIUM SERUM 3.5 MEQ/L (3.5-5.1); SODIUM LEVEL 140 MEQ/L (136-145)
[2018-02-21 13:30] LABS: ESTIMATED AVERAGE GLUCOSE 148 MG/DL (60-110); HEMOGLOBIN A1c 6.8 %
[2018-02-21 16:48] LABS: CREATININE, URINE 57.2 MG/DL; MAU/CREAT RATIO 1113.6 MCG/MG (0.0-30.0)
== END ==
LOC: M SFHCPLAZ 08:32
DX: E11.22 Type 2 diabetes mellitus with diabetic chronic kidney disease (principal)
CPT/HCPCS: 83036

== ENCOUNTER → 2018-05-13 | Outpatient (REF) | payer MEDICARE ==
[2018-05-13 13:34] LABS: CREATININE,RANDOM URINE 34.3 MG/DL
[2018-05-13 13:40] LABS: TOTAL PROTEIN,RANDOM URINE 254.7 MG/DL (0.0-12.0)
== END ==
LOC: M LAB REF 12:13
DX: N18.3 Chronic kidney disease, stage 3 (moderate) (principal)
CPT/HCPCS: 82570

== ENCOUNTER → 2018-07-10 | Outpatient (REF) | payer MEDICARE ==
[2018-07-10 12:50] LABS: ANION GAP 6 MEQ/L (8-16); BLOOD UREA NITROGEN 32 MG/DL (7-18); CALCIUM LEVEL 9.5 MG/DL (8.8-10.2); CARBON DIOXIDE LEVEL 32 MEQ/L (21-32); CHLORIDE LEVEL 97 MEQ/L (98-107); CREATININE FOR GFR 1.84 MG/DL (0.70-1.30); GLOMERULAR FILTRATION RATE 46.9 (>42); GLUCOSE, FASTING 251 MG/DL (70-100); SODIUM LEVEL 135 MEQ/L (136-145); URIC ACID 7.5 MG/DL (3.5-7.2)
[2018-07-10 13:05] LABS: ESTIMATED AVERAGE GLUCOSE 203 MG/DL (60-110); HEMOGLOBIN A1c 8.7 %
[2018-07-10 14:02] LABS: MAU/CREAT RATIO 6530.8 MCG/MG (0.0-30.0)
== END ==
LOC: M SFHCPLAZ 10:35
DX: E11.22 Type 2 diabetes mellitus with diabetic chronic kidney disease (principal); N18.3 Chronic kidney disease, stage 3 (moderate); E79.0 Hyperuricemia without signs of inflammatory arthritis and tophaceous disease; Z23 Encounter for immunization
CPT/HCPCS: 84550

== ENCOUNTER 2018-07-15 16:43 | Inpatient (IN) | payer MEDICARE ==
[2018-07-15 17:37] LABS: BASO % 0.2 % (0.0-1.0); EOS % 0.1 % (0.0-3.0); HEMATOCRIT 41.8 % (42.0-52.0); HEMOGLOBIN 14.4 g/dl (13.5-17.5); IMMATURE GRANULOCYTE % 1.2 % (0-3.0); LYMPH # 0.3 10^3/uL (1.5-4.5); LYMPH % 1.8 % (24.0-44.0); MEAN CORPUSCULAR HEMOGLOBIN 29.1 pg (27.0-33.0); MEAN CORPUSCULAR HGB CONC 34.4 g/dl (32.0-36.5); MEAN CORPUSCULAR VOLUME 84.6 fl (80.0-96.0); MONO # 0.6 10^3/uL (0.0-0.8); MONO % 3.4 % (0.0-5.0); NEUTROPHILS # 16.5 10^3/uL (1.8-7.7); NEUTROPHILS % 93.3 % (36.0-66.0); PLATELET COUNT, AUTOMATED 158 10^3/uL (150-450); RED BLOOD COUNT 4.94 10^6/uL (4.30-6.10); RED CELL DISTRIBUTION WIDTH 14.2 % (11.5-14.5); WHITE BLOOD COUNT 17.7 10^3/uL (4.0-10.0)
[2018-07-15 17:59] LABS: ALBUMIN 3.3 GM/DL (3.2-5.2); ALKALINE PHOSPHATASE 131 U/L (45-117); ALT/SGPT 142 U/L (12-78); ANION GAP 14 MEQ/L (8-16); AST/SGOT 59 U/L (7-37); BILIRUBIN,DIRECT 3.8 MG/DL (0.0-0.2); BILIRUBIN,TOTAL 4.9 MG/DL (0.2-1.0); BLOOD UREA NITROGEN 46 MG/DL (7-18); CALCIUM LEVEL 8.5 MG/DL (8.8-10.2); CARBON DIOXIDE LEVEL 24 MEQ/L (21-32); CHLORIDE LEVEL 90 MEQ/L (98-107); CPK CREATINE PHOSPHOKINASE 68 U/L (39-308); CREATININE FOR GFR 2.86 MG/DL (0.70-1.30); GLOMERULAR FILTRATION RATE 28.2 (>42); GLUCOSE, FASTING 295 MG/DL (70-100); MB/CK RELATIVE INDEX 1.62 (< OR =4); NT-PRO BNP 6896 PG/ML (<125); POTASSIUM SERUM 4.1 MEQ/L (3.5-5.1); SODIUM LEVEL 128 MEQ/L (136-145); TOTAL PROTEIN 6.6 GM/DL (6.4-8.2); TROPONIN I 0.02 NG/ML (< 0.10)
[2018-07-15 19:41] LABS: LIPASE 63 U/L (73-393)
[2018-07-15] MEDS: GASTROGRAFIN SOLUTION 30ML PO ×2 (21:36→21:55)
[2018-07-16 01:58] LABS: LACTIC ACID SEPSIS PROTOCOL 6.1 MMOL/L (0.4-2.0)
[2018-07-16] MEDS: AMPICILLIN SOD/SULBACTAM SOD 3 GM in D5W MINI-BAG PLUS 100 ML IV (02:21)
[2018-07-16 02:31] LABS: APPEARANCE, URINE CLOUDY (CLEAR); BACTERIA, URINE AUTO 3+ (NEGATIVE); BILIRUBIN, URINE AUTO 1+ (NEGATIVE); BLOOD, URINE BLOOD 2+ (NEGATIVE); COLOR, URINE AMBER (YELLOW); GLUCOSE, URINE (UA) AUTO NEGATIVE (NEGATIVE); KETONE, URINE AUTO NEGATIVE (NEGATIVE); LEUKOCYTE ESTERASE, URINE AUTO 3+ (NEGATIVE); MUCUS, URINE SMALL (NEGATIVE); NITRITE, URINE AUTO NEGATIVE (NEGATIVE); PROTEIN, URINE AUTO 3+ mg/dL (NEGATIVE); RBC, URINE AUTO 33 /HPF (0-3); SPECIFIC GRAVITY URINE AUTO 1.016 (1.002-1.035); SQUAMOUS EPITHELIAL CELL UR AU 8 /HPF (0-6); WBC, URINE AUTO TNTC /HPF (0-3)
[2018-07-16 02:39] LABS: INR 2.45; PARTIAL THROMBOPLASTIN TIME 37.2 SECONDS (25.4-37.6); PROTHROMBIN TIME 27.1 SECONDS (12.1-14.4)
[2018-07-16 02:42] LABS: AMYLASE 13 U/L (25-115)
[2018-07-16] MEDS: ASPIRIN 81 MG ENTERIC TAB PO ×2 (05:47→20:32)
[2018-07-16] MEDS: HumaLOG INSULIN (NovoLOG) PER UNIT SC ×3 (06:00→18:29)
[2018-07-16 06:17] LABS: BASO % 0.2 % (0.0-1.0); HEMATOCRIT 41.5 % (42.0-52.0); HEMOGLOBIN 14.3 g/dl (13.5-17.5); IMMATURE GRANULOCYTE % 0.6 % (0-3.0); LYMPH # 0.4 10^3/uL (1.5-4.5); LYMPH % 2.4 % (24.0-44.0); MEAN CORPUSCULAR HEMOGLOBIN 28.4 pg (27.0-33.0); MEAN CORPUSCULAR HGB CONC 34.5 g/dl (32.0-36.5); MEAN CORPUSCULAR VOLUME 82.3 fl (80.0-96.0); MONO # 0.8 10^3/uL (0.0-0.8); MONO % 4.7 % (0.0-5.0); NEUTROPHILS # 15.4 10^3/uL (1.8-7.7); NEUTROPHILS % 92.1 % (36.0-66.0); PLATELET COUNT, AUTOMATED 159 10^3/uL (150-450); RED BLOOD COUNT 5.04 10^6/uL (4.30-6.10); RED CELL DISTRIBUTION WIDTH 14.1 % (11.5-14.5); WHITE BLOOD COUNT 16.7 10^3/uL (4.0-10.0)
[2018-07-16] MEDS: NS 1,000 ML IV (06:22)
[2018-07-16] MEDS: CIPROFLOXACIN 400 MG in APPROPRIATE DILUENT 1 EA IV (06:22)
[2018-07-16] MEDS ORDERED: GLUCOSE 4 GM CHEW TABLET PO (08:00)
[2018-07-16] MEDS ORDERED: DEXTROSE 50% 50 ML SYRINGE IV (08:00)
[2018-07-16] MEDS ORDERED: GLUCAGON FOR INJ 1 MG VIAL (J1610) SC (08:00)
[2018-07-16 08:19] LABS: ALBUMIN 3.4 GM/DL (3.2-5.2); ALBUMIN/GLOBULIN RATIO 1.06 (1.00-1.93); ALKALINE PHOSPHATASE 116 U/L (45-117); ALT/SGPT 168 U/L (12-78); ANION GAP 13 MEQ/L (8-16); AST/SGOT 75 U/L (7-37); BILIRUBIN,TOTAL 6.9 MG/DL (0.2-1.0); BLOOD UREA NITROGEN 59 MG/DL (7-18); CALCIUM LEVEL 9.1 MG/DL (8.8-10.2); CARBON DIOXIDE LEVEL 25 MEQ/L (21-32); CHLORIDE LEVEL 88 MEQ/L (98-107); CK-MB VALUE MASS < 1.0 NG/ML (<3.6); CPK CREATINE PHOSPHOKINASE 66 U/L (39-308); CREATININE FOR GFR 3.09 MG/DL (0.70-1.30); GLOMERULAR FILTRATION RATE 25.8 (>42); GLUCOSE, FASTING 292 MG/DL (70-100); MAGNESIUM LEVEL 2.5 MG/DL (1.8-2.4); MB/CK RELATIVE INDEX 1.52 (< OR =4); POTASSIUM SERUM 4.7 MEQ/L (3.5-5.1); SODIUM LEVEL 126 MEQ/L (136-145); TOTAL PROTEIN 6.6 GM/DL (6.4-8.2); TROPONIN I < 0.02 NG/ML (< 0.10)
[2018-07-16] MEDS: APIXABAN 5 MG TAB (ELIQUIS) PO (08:19)
[2018-07-16] MEDS: ISOSORBIDE DIN. (ISORDIL) 20 MG TAB PO ×2 (08:19→17:33)
[2018-07-16] MEDS: FLUTICASONE PROP 0.05% NASAL SPRAY 16 GM (FLONASE) (08:19)
[2018-07-16] MEDS: CARVedilol 12.5 MG TAB PO ×2 (08:20→20:32)
[2018-07-16] MEDS: POTASSIUM CHLORIDE 10 MEQ SR TABLET PO (08:20)
[2018-07-16] MEDS: cefTRIAXone SOD 1 GM in D5W MINI-BAG PLUS 50 ML IV (08:20)
[2018-07-16] MEDS: ALLOPURINOL 100 MG TAB PO (08:20)
[2018-07-16 08:54] LABS: CHLORIDE,RANDOM URINE < 10 MEQ/L; CREATININE,RANDOM URINE 98.7 MG/DL; POTASSIUM RANDOM URINE 38.5 MEQ/L; SODIUM,RANDOM URINE < 10 MEQ/L; TOTAL PROTEIN,RANDOM URINE 77.4 MG/DL (0.0-12.0)
[2018-07-16] MEDS ORDERED: SITagliptin 50 MG TAB (JANUVIA) PO (09:00)
[2018-07-16 09:41] LABS: OSMOLALITY URINE 313 MOSM/KG (500-800)
[2018-07-16 10:23] LABS: URIC ACID,RANDOM URINE 20.8 MG/DL
[2018-07-16 12:24] LABS: BEDSIDE GLUCOSE 312 MG/DL (83-110)
[2018-07-16] MEDS: FUROSEMIDE 40 MG/4 ML VIAL (J1940) IV (12:37)
[2018-07-16 12:58] LABS: ANION GAP 11 MEQ/L (8-16); BLOOD UREA NITROGEN 58 MG/DL (7-18); CALCIUM LEVEL 8.6 MG/DL (8.8-10.2); CARBON DIOXIDE LEVEL 26 MEQ/L (21-32); CHLORIDE LEVEL 89 MEQ/L (98-107); GLOMERULAR FILTRATION RATE 27.7 (>42); GLUCOSE, FASTING 271 MG/DL (70-100); POTASSIUM SERUM 4.5 MEQ/L (3.5-5.1); SODIUM LEVEL 126 MEQ/L (136-145)
[2018-07-16 17:49] LABS: ANION GAP 11 MEQ/L (8-16); BLOOD UREA NITROGEN 66 MG/DL (7-18); CALCIUM LEVEL 9.3 MG/DL (8.8-10.2); CARBON DIOXIDE LEVEL 28 MEQ/L (21-32); CHLORIDE LEVEL 90 MEQ/L (98-107); CREATININE FOR GFR 3.24 MG/DL (0.70-1.30); GLOMERULAR FILTRATION RATE 24.4 (>42); GLUCOSE, FASTING 195 MG/DL (70-100); POTASSIUM SERUM 4.4 MEQ/L (3.5-5.1); SODIUM LEVEL 129 MEQ/L (136-145)
[2018-07-16 18:26] LABS: BEDSIDE GLUCOSE 196 MG/DL (83-110)
[2018-07-16] MEDS ORDERED: MEROPENEM INJ 500 MG in APPROPRIATE DILUENT 1 EA IV (20:00)
[2018-07-16] MEDS: MEROPENEM INJ 500 MG in APPROPRIATE DILUENT 1 EA IV (20:31)
[2018-07-16 23:30] LABS: ANION GAP 9 MEQ/L (8-16); BLOOD UREA NITROGEN 66 MG/DL (7-18); CALCIUM LEVEL 8.4 MG/DL (8.8-10.2); CARBON DIOXIDE LEVEL 27 MEQ/L (21-32); CHLORIDE LEVEL 91 MEQ/L (98-107); CREATININE FOR GFR 2.87 MG/DL (0.70-1.30); GLOMERULAR FILTRATION RATE 28.1 (>42); GLUCOSE, FASTING 191 MG/DL (70-100); POTASSIUM SERUM 4.6 MEQ/L (3.5-5.1); SODIUM LEVEL 127 MEQ/L (136-145)
[2018-07-17 00:01] LABS: BEDSIDE GLUCOSE 207 MG/DL (83-110)
[2018-07-17 06:14] LABS: BEDSIDE GLUCOSE 181 MG/DL (83-110)
[2018-07-17] MEDS: HumaLOG INSULIN (NovoLOG) PER UNIT SC ×4 (06:24→17:10)
[2018-07-17 06:27] LABS: HEMATOCRIT 39.2 % (42.0-52.0); HEMOGLOBIN 13.4 g/dl (13.5-17.5); MEAN CORPUSCULAR HEMOGLOBIN 28.1 pg (27.0-33.0); MEAN CORPUSCULAR HGB CONC 34.2 g/dl (32.0-36.5); MEAN CORPUSCULAR VOLUME 82.2 fl (80.0-96.0); PLATELET COUNT, AUTOMATED 145 10^3/uL (150-450); RED BLOOD COUNT 4.77 10^6/uL (4.30-6.10); RED CELL DISTRIBUTION WIDTH 14.3 % (11.5-14.5); WHITE BLOOD COUNT 9.7 10^3/uL (4.0-10.0)
[2018-07-17 06:45] LABS: ALBUMIN/GLOBULIN RATIO 0.83 (1.00-1.93); ALKALINE PHOSPHATASE 99 U/L (45-117); ALT/SGPT 162 U/L (12-78); ANION GAP 11 MEQ/L (8-16); AST/SGOT 61 U/L (7-37); BILIRUBIN,TOTAL 6.8 MG/DL (0.2-1.0); BLOOD UREA NITROGEN 66 MG/DL (7-18); CALCIUM LEVEL 8.7 MG/DL (8.8-10.2); CARBON DIOXIDE LEVEL 29 MEQ/L (21-32); CHLORIDE LEVEL 90 MEQ/L (98-107); CREATININE FOR GFR 2.85 MG/DL (0.70-1.30); GLOMERULAR FILTRATION RATE 28.3 (>42); GLUCOSE, FASTING 174 MG/DL (70-100); MAGNESIUM LEVEL 2.7 MG/DL (1.8-2.4); POTASSIUM SERUM 4.5 MEQ/L (3.5-5.1); SODIUM LEVEL 130 MEQ/L (136-145); TOTAL PROTEIN 6.6 GM/DL (6.4-8.2)
[2018-07-17 06:52] LABS: LACTIC ACID SEPSIS PROTOCOL 3.1 MMOL/L (0.4-2.0)
[2018-07-17] MEDS: CARVedilol 12.5 MG TAB PO (08:02)
[2018-07-17] MEDS: ALLOPURINOL 100 MG TAB PO (08:02)
[2018-07-17] MEDS: MEROPENEM INJ 500 MG in APPROPRIATE DILUENT 1 EA IV (08:03)
[2018-07-17] MEDS: FLUTICASONE PROP 0.05% NASAL SPRAY 16 GM (FLONASE) (08:10)
[2018-07-17] MEDS: SPIRONOLACTONE 25 MG TAB PO ×2 (11:05→17:09)
[2018-07-17] MEDS: FUROSEMIDE 40 MG/4 ML VIAL (J1940) IV ×2 (11:06→18:17)
[2018-07-17 11:29] LABS: ANION GAP 11 MEQ/L (8-16); BLOOD UREA NITROGEN 65 MG/DL (7-18); CALCIUM LEVEL 8.2 MG/DL (8.8-10.2); CARBON DIOXIDE LEVEL 28 MEQ/L (21-32); CHLORIDE LEVEL 91 MEQ/L (98-107); CREATININE FOR GFR 2.72 MG/DL (0.70-1.30); GLOMERULAR FILTRATION RATE 29.9 (>42); GLUCOSE, FASTING 270 MG/DL (70-100); POTASSIUM SERUM 4.4 MEQ/L (3.5-5.1); SODIUM LEVEL 130 MEQ/L (136-145)
[2018-07-17 12:02] LABS: BEDSIDE GLUCOSE 398 MG/DL (83-110)
[2018-07-17 17:02] LABS: BEDSIDE GLUCOSE 304 MG/DL (83-110)
[2018-07-17 18:22] LABS: ANION GAP 15 MEQ/L (8-16); BLOOD UREA NITROGEN 65 MG/DL (7-18); CARBON DIOXIDE LEVEL 23 MEQ/L (21-32); CHLORIDE LEVEL 88 MEQ/L (98-107); GLOMERULAR FILTRATION RATE 30.1 (>42); GLUCOSE, FASTING 307 MG/DL (70-100); POTASSIUM SERUM 4.5 MEQ/L (3.5-5.1); SODIUM LEVEL 126 MEQ/L (136-145)
[2018-07-17] MEDS: ASPIRIN 81 MG ENTERIC TAB PO (20:09)
[2018-07-17] MEDS ORDERED: HumaLOG INSULIN (NovoLOG) PER UNIT SC (21:00)
[2018-07-18 13:35] LABS: HEPATITIS B SURFACE ANTIGEN NEGATIVE (NEGATIVE)
[2018-07-18 14:03] LABS: HEPATITIS C VIRUS ABY INDEX < 0.0 INDEX (<0.8)
[2018-07-18 14:03] LABS: HEPATITIS B CORE ANTIBODY IGM NEGATIVE (NEGATIVE)
[2018-07-18 14:05] LABS: HEPATITIS A ANTIBODY IGM NEGATIVE (NEGATIVE)
== END 2018-07-17 20:23 | disposition short-term general hospital (02) | DRG 689 ==
LOC: M ED INP 07-16 05:23 → M ED 16:43 → M PCU 07-16 16:35
DX: N39.0 Urinary tract infection, site not specified (principal); I50.23 Acute on chronic systolic (congestive) heart failure; N17.9 Acute kidney failure, unspecified; E87.1 Hypo-osmolality and hyponatremia; R17 Unspecified jaundice; R78.81 Bacteremia; N18.4 Chronic kidney disease, stage 4 (severe); R94.5 Abnormal results of liver function studies; I48.91 Unspecified atrial fibrillation; Z95.1 Presence of aortocoronary bypass graft; E11.9 Type 2 diabetes mellitus without complications; E66.01 Morbid (severe) obesity due to excess calories; Z79.01 Long term (current) use of anticoagulants; Z79.899 Other long term (current) drug therapy; Z79.82 Long term (current) use of aspirin; Z79.4 Long term (current) use of insulin; R10.9 Unspecified abdominal pain

== ENCOUNTER 2018-07-26 18:14 | Inpatient (IN) | payer MEDICARE ==
[~2018-07-26 18:14] MED LIST: BISACODYL 5 MG TAB PO; DEXTROSE 50% 50 ML SYRINGE IV; GLUCAGON FOR INJ 1 MG VIAL (J1610) SC; GLUCOSE 4 GM CHEW TABLET PO; IPRATROPIUM 0.5MG/ALBUTEROL 2.5MG INH SOL UD 3ML (DUONEB)(J7620) NEB; ONDANSETRON 4MG/2ML VIAL (J2405) IV
[2018-07-26] MEDS: HumaLOG INSULIN (NovoLOG) PER UNIT SC ×2 (18:51→21:00)
[2018-07-26 18:53] LABS: BASO # 0.1 10^3/uL (0.0-0.2); BASO % 0.9 % (0.0-1.0); EOS # 0.2 10^3/uL (0.0-0.50); EOS % 2.2 % (0.0-3.0); HEMATOCRIT 41.1 % (42.0-52.0); HEMOGLOBIN 14.1 g/dl (13.5-17.5); IMMATURE GRANULOCYTE % 0.4 % (0-3.0); LYMPH % 14.1 % (24.0-44.0); MEAN CORPUSCULAR HEMOGLOBIN 27.6 pg (27.0-33.0); MEAN CORPUSCULAR HGB CONC 34.3 g/dl (32.0-36.5); MEAN CORPUSCULAR VOLUME 80.6 fl (80.0-96.0); MONO # 0.7 10^3/uL (0.0-0.8); MONO % 9.9 % (0.0-5.0); NEUTROPHILS # 5.4 10^3/uL (1.8-7.7); NEUTROPHILS % 72.5 % (36.0-66.0); PLATELET COUNT, AUTOMATED 216 10^3/uL (150-450); RED CELL DISTRIBUTION WIDTH 16.2 % (11.5-14.5); WHITE BLOOD COUNT 7.4 10^3/uL (4.0-10.0)
[2018-07-26 19:05] LABS: INR 1.23; PROTHROMBIN TIME 15.7 SECONDS (12.1-14.4)
[2018-07-26 19:36] LABS: ALBUMIN 2.6 GM/DL (3.2-5.2); ALBUMIN/GLOBULIN RATIO 0.62 (1.00-1.93); ALKALINE PHOSPHATASE 109 U/L (45-117); ALT/SGPT 63 U/L (12-78); ANION GAP 8 MEQ/L (8-16); AST/SGOT 18 U/L (7-37); BILIRUBIN,TOTAL 2.8 MG/DL (0.2-1.0); BLOOD UREA NITROGEN 40 MG/DL (7-18); CALCIUM LEVEL 8.9 MG/DL (8.8-10.2); CARBON DIOXIDE LEVEL 36 MEQ/L (21-32); CHLORIDE LEVEL 93 MEQ/L (98-107); CREATININE FOR GFR 1.79 MG/DL (0.70-1.30); GLOMERULAR FILTRATION RATE 48.4 (>42); GLUCOSE, FASTING 112 MG/DL (70-100); LIPASE 148 U/L (73-393); POTASSIUM SERUM 4.2 MEQ/L (3.5-5.1); SODIUM LEVEL 137 MEQ/L (136-145); TOTAL PROTEIN 6.8 GM/DL (6.4-8.2)
[2018-07-26 20:24] LABS: BEDSIDE GLUCOSE 201 MG/DL (83-110)
[2018-07-26] MEDS: HEPARIN SOD (PORCINE) 5000 UNITS/ML VIAL SC (21:07)
[2018-07-26] MEDS: PIPERACILLIN/TAZOBACTAM SOD 3.375 GM in D5W MINI-BAG PLUS 50 ML IV (21:07)
[2018-07-27] MEDS: PIPERACILLIN/TAZOBACTAM SOD 3.375 GM in D5W MINI-BAG PLUS 50 ML IV ×2 (01:11→08:48)
[2018-07-27] MEDS: HEPARIN SOD (PORCINE) 5000 UNITS/ML VIAL SC (05:05)
[2018-07-27 06:22] LABS: HEMATOCRIT 41.3 % (42.0-52.0); HEMOGLOBIN 13.5 g/dl (13.5-17.5); MEAN CORPUSCULAR HEMOGLOBIN 27.1 pg (27.0-33.0); MEAN CORPUSCULAR HGB CONC 32.7 g/dl (32.0-36.5); MEAN CORPUSCULAR VOLUME 82.8 fl (80.0-96.0); PLATELET COUNT, AUTOMATED 189 10^3/uL (150-450); RED BLOOD COUNT 4.99 10^6/uL (4.30-6.10); RED CELL DISTRIBUTION WIDTH 16.3 % (11.5-14.5); WHITE BLOOD COUNT 6.2 10^3/uL (4.0-10.0)
[2018-07-27 06:36] LABS: ANION GAP 6 MEQ/L (8-16); BLOOD UREA NITROGEN 35 MG/DL (7-18); CALCIUM LEVEL 9.3 MG/DL (8.8-10.2); CARBON DIOXIDE LEVEL 37 MEQ/L (21-32); CHLORIDE LEVEL 94 MEQ/L (98-107); CREATININE FOR GFR 1.79 MG/DL (0.70-1.30); GLOMERULAR FILTRATION RATE 48.4 (>42); GLUCOSE, FASTING 154 MG/DL (70-100); LIPASE 112 U/L (73-393); POTASSIUM SERUM 3.7 MEQ/L (3.5-5.1); SODIUM LEVEL 137 MEQ/L (136-145)
[2018-07-27 06:37] LABS: BEDSIDE GLUCOSE 152 MG/DL (83-110)
[2018-07-27 08:31] LABS: ALBUMIN 2.5 GM/DL (3.2-5.2); ALBUMIN/GLOBULIN RATIO 0.61 (1.00-1.93); ALKALINE PHOSPHATASE 86 U/L (45-117); ALT/SGPT 50 U/L (12-78); AST/SGOT 11 U/L (7-37); BILIRUBIN,DIRECT 1.9 MG/DL (0.0-0.2); BILIRUBIN,TOTAL 2.4 MG/DL (0.2-1.0); TOTAL PROTEIN 6.6 GM/DL (6.4-8.2)
[2018-07-27] MEDS: HumaLOG INSULIN (NovoLOG) PER UNIT SC ×4 (08:48→20:31)
[2018-07-27 11:44] LABS: BEDSIDE GLUCOSE 182 MG/DL (83-110)
[2018-07-27 16:53] LABS: BEDSIDE GLUCOSE 141 MG/DL (83-110)
[2018-07-27] MEDS: ERTAPENEM SODIUM 1 GM in NS MINI-BAG PLUS 50 ML IV (17:18)
[2018-07-27] MEDS: TORSEMIDE (DEMADEX) 50 MG PER 1/2 TAB PO (17:19)
[2018-07-27] MEDS: ISOSORBIDE DIN (ISORDIL) 10 MG TAB PO ×2 (17:22→20:34)
[2018-07-27 20:24] LABS: BEDSIDE GLUCOSE 206 MG/DL (83-110)
[2018-07-27] MEDS: CARVedilol 12.5 MG TAB PO (20:33)
[2018-07-27] MEDS: APIXABAN 5 MG TAB (ELIQUIS) PO (20:38)
[2018-07-27] MEDS: POTASSIUM CHLORIDE 10 MEQ SR TABLET PO (20:38)
[2018-07-28 06:18] LABS: BEDSIDE GLUCOSE 142 MG/DL (83-110)
[2018-07-28 06:26] LABS: ALBUMIN 2.6 GM/DL (3.2-5.2); ALBUMIN/GLOBULIN RATIO 0.62 (1.00-1.93); ALKALINE PHOSPHATASE 89 U/L (45-117); ALT/SGPT 45 U/L (12-78); AST/SGOT 10 U/L (7-37); BILIRUBIN,DIRECT 1.7 MG/DL (0.0-0.2); BILIRUBIN,TOTAL 2.4 MG/DL (0.2-1.0); TOTAL PROTEIN 6.8 GM/DL (6.4-8.2)
[2018-07-28] MEDS: ISOSORBIDE DIN (ISORDIL) 10 MG TAB PO ×3 (08:37→20:39)
[2018-07-28] MEDS: CARVedilol 12.5 MG TAB PO ×2 (08:37→20:39)
[2018-07-28] MEDS: TORSEMIDE (DEMADEX) 50 MG PER 1/2 TAB PO ×2 (08:37→17:25)
[2018-07-28] MEDS: APIXABAN 5 MG TAB (ELIQUIS) PO ×2 (08:37→20:43)
[2018-07-28] MEDS: HumaLOG INSULIN (NovoLOG) PER UNIT SC ×4 (08:38→20:39)
[2018-07-28 08:55] LABS: ANION GAP 8 MEQ/L (8-16); BLOOD UREA NITROGEN 28 MG/DL (7-18); CALCIUM LEVEL 9.3 MG/DL (8.8-10.2); CARBON DIOXIDE LEVEL 34 MEQ/L (21-32); CHLORIDE LEVEL 96 MEQ/L (98-107); CREATININE FOR GFR 1.66 MG/DL (0.70-1.30); GLOMERULAR FILTRATION RATE 52.8 (>42); GLUCOSE, FASTING 143 MG/DL (70-100); POTASSIUM SERUM 3.7 MEQ/L (3.5-5.1); SODIUM LEVEL 138 MEQ/L (136-145)
[2018-07-28 09:36] LABS: HEMOGLOBIN 14.1 g/dl (13.5-17.5); MEAN CORPUSCULAR HEMOGLOBIN 27.8 pg (27.0-33.0); MEAN CORPUSCULAR HGB CONC 32.8 g/dl (32.0-36.5); MEAN CORPUSCULAR VOLUME 84.8 fl (80.0-96.0); PLATELET COUNT, AUTOMATED 199 10^3/uL (150-450); RED BLOOD COUNT 5.07 10^6/uL (4.30-6.10); RED CELL DISTRIBUTION WIDTH 16.7 % (11.5-14.5); WHITE BLOOD COUNT 6.7 10^3/uL (4.0-10.0)
[2018-07-28 11:36] LABS: BEDSIDE GLUCOSE 246 MG/DL (83-110)
[2018-07-28 16:50] LABS: BEDSIDE GLUCOSE 168 MG/DL (83-110)
[2018-07-28] MEDS: ERTAPENEM SODIUM 1 GM in NS MINI-BAG PLUS 50 ML IV (17:25)
[2018-07-28 20:39] LABS: BEDSIDE GLUCOSE 198 MG/DL (83-110)
[2018-07-28] MEDS: POTASSIUM CHLORIDE 10 MEQ SR TABLET PO (20:43)
[2018-07-28] MEDS: ACETAMINOPHEN TAB 650MG DOSE (2X325MG) PO (20:44)
[2018-07-29 06:15] LABS: HEMATOCRIT 42.4 % (42.0-52.0); HEMOGLOBIN 13.9 g/dl (13.5-17.5); MEAN CORPUSCULAR HEMOGLOBIN 27.2 pg (27.0-33.0); MEAN CORPUSCULAR HGB CONC 32.8 g/dl (32.0-36.5); PLATELET COUNT, AUTOMATED 227 10^3/uL (150-450); RED BLOOD COUNT 5.11 10^6/uL (4.30-6.10); RED CELL DISTRIBUTION WIDTH 16.4 % (11.5-14.5); WHITE BLOOD COUNT 5.6 10^3/uL (4.0-10.0)
[2018-07-29 06:33] LABS: ANION GAP 7 MEQ/L (8-16); BLOOD UREA NITROGEN 31 MG/DL (7-18); CALCIUM LEVEL 9.2 MG/DL (8.8-10.2); CARBON DIOXIDE LEVEL 34 MEQ/L (21-32); CHLORIDE LEVEL 96 MEQ/L (98-107); CREATININE FOR GFR 1.55 MG/DL (0.70-1.30); GLOMERULAR FILTRATION RATE 57.2 (>42); GLUCOSE, FASTING 164 MG/DL (70-100); POTASSIUM SERUM 3.6 MEQ/L (3.5-5.1); SODIUM LEVEL 137 MEQ/L (136-145)
[2018-07-29 06:37] LABS: ALBUMIN 2.7 GM/DL (3.2-5.2); ALBUMIN/GLOBULIN RATIO 0.63 (1.00-1.93); ALKALINE PHOSPHATASE 105 U/L (45-117); ALT/SGPT 48 U/L (12-78); AST/SGOT 14 U/L (7-37); BILIRUBIN,DIRECT 1.5 MG/DL (0.0-0.2); BILIRUBIN,TOTAL 2.1 MG/DL (0.2-1.0)
[2018-07-29] MEDS: TORSEMIDE (DEMADEX) 50 MG PER 1/2 TAB PO ×2 (08:39→17:46)
[2018-07-29] MEDS: HumaLOG INSULIN (NovoLOG) PER UNIT SC ×4 (08:39→20:37)
[2018-07-29] MEDS: APIXABAN 5 MG TAB (ELIQUIS) PO ×2 (08:41→20:35)
[2018-07-29] MEDS: CARVedilol 12.5 MG TAB PO ×2 (08:42→20:36)
[2018-07-29] MEDS: ISOSORBIDE DIN (ISORDIL) 10 MG TAB PO ×3 (08:42→20:36)
[2018-07-29 11:29] LABS: BEDSIDE GLUCOSE 208 MG/DL (83-110)
[2018-07-29 16:39] LABS: BEDSIDE GLUCOSE 156 MG/DL (83-110)
[2018-07-29] MEDS: ERTAPENEM SODIUM 1 GM in NS MINI-BAG PLUS 50 ML IV (17:45)
[2018-07-29] MEDS: ACETAMINOPHEN TAB 650MG DOSE (2X325MG) PO ×2 (19:02→23:01)
[2018-07-29 19:56] LABS: BEDSIDE GLUCOSE 164 MG/DL (83-110)
[2018-07-29] MEDS: POTASSIUM CHLORIDE 10 MEQ SR TABLET PO (20:35)
[2018-07-30 06:07] LABS: HEMATOCRIT 42.7 % (42.0-52.0); HEMOGLOBIN 14.3 g/dl (13.5-17.5); MEAN CORPUSCULAR HEMOGLOBIN 27.5 pg (27.0-33.0); MEAN CORPUSCULAR HGB CONC 33.5 g/dl (32.0-36.5); MEAN CORPUSCULAR VOLUME 82.1 fl (80.0-96.0); PLATELET COUNT, AUTOMATED 235 10^3/uL (150-450); RED CELL DISTRIBUTION WIDTH 17.2 % (11.5-14.5); WHITE BLOOD COUNT 6.1 10^3/uL (4.0-10.0)
[2018-07-30 06:40] LABS: ALBUMIN 2.9 GM/DL (3.2-5.2); ALBUMIN/GLOBULIN RATIO 0.66 (1.00-1.93); ALKALINE PHOSPHATASE 97 U/L (45-117); ALT/SGPT 47 U/L (12-78); ANION GAP 9 MEQ/L (8-16); AST/SGOT 13 U/L (7-37); BILIRUBIN,DIRECT 1.6 MG/DL (0.0-0.2); BILIRUBIN,TOTAL 2.4 MG/DL (0.2-1.0); BLOOD UREA NITROGEN 28 MG/DL (7-18); CALCIUM LEVEL 9.4 MG/DL (8.8-10.2); CARBON DIOXIDE LEVEL 31 MEQ/L (21-32); CHLORIDE LEVEL 98 MEQ/L (98-107); CREATININE FOR GFR 1.47 MG/DL (0.70-1.30); GLOMERULAR FILTRATION RATE > 60.0 (>42); GLUCOSE, FASTING 166 MG/DL (70-100); POTASSIUM SERUM 3.5 MEQ/L (3.5-5.1); SODIUM LEVEL 138 MEQ/L (136-145); TOTAL PROTEIN 7.3 GM/DL (6.4-8.2)
[2018-07-30] MEDS: HumaLOG INSULIN (NovoLOG) PER UNIT SC ×2 (08:32→12:19)
[2018-07-30] MEDS: APIXABAN 5 MG TAB (ELIQUIS) PO (08:32)
[2018-07-30] MEDS: CARVedilol 12.5 MG TAB PO (08:32)
[2018-07-30] MEDS: TORSEMIDE (DEMADEX) 50 MG PER 1/2 TAB PO (08:32)
[2018-07-30] MEDS: ISOSORBIDE DIN (ISORDIL) 10 MG TAB PO (08:34)
[2018-07-31 03:04] LABS: BEDSIDE GLUCOSE 229 MG/DL (83-110)
== END 2018-07-30 16:38 | disposition home health service (06) | DRG 444 ==
LOC: M MSPAV 18:14
DX: K80.31 Calculus of bile duct with cholangitis, unspecified, with obstruction (principal); I50.23 Acute on chronic systolic (congestive) heart failure; R78.81 Bacteremia; N18.4 Chronic kidney disease, stage 4 (severe); I48.91 Unspecified atrial fibrillation; E11.22 Type 2 diabetes mellitus with diabetic chronic kidney disease; E66.01 Morbid (severe) obesity due to excess calories; B96.1 Klebsiella pneumoniae [K. pneumoniae] as the cause of diseases classified elsewhere; I25.10 Atherosclerotic heart disease of native coronary artery without angina pectoris; M10.9 Gout, unspecified; Z79.4 Long term (current) use of insulin; Z79.01 Long term (current) use of anticoagulants; Z79.82 Long term (current) use of aspirin; Z95.810 Presence of automatic (implantable) cardiac defibrillator; Z68.35 Body mass index [BMI] 35.0-35.9, adult; Z79.899 Other long term (current) drug therapy

== ENCOUNTER → 2018-08-14 | Outpatient (REF) | payer MEDICARE, MEDICAID ==
[2018-08-14 18:40] LABS: TOTAL PROTEIN,RANDOM URINE 7.2 MG/DL (0.0-12.0)
[2018-08-14 18:40] LABS: CREATININE,RANDOM URINE 17.7 MG/DL
== END ==
LOC: M LAB REF 17:23
DX: N18.3 Chronic kidney disease, stage 3 (moderate) (principal)
CPT/HCPCS: 82570

== ENCOUNTER → 2018-10-24 | Outpatient (CLI) | payer MEDICARE, MEDICAID ==
[~2018-10-24] MED LIST changes: +ACET250T2 PO; +ACET650T3 PO; +ALDA25TA2 PO; +ALLO100T PO; +AMIO200T PO; +ASPI1TAB PO; -BISACODYL 5 MG TAB PO; +CARV12.5 PO; +CARV25TA PO; -DEXTROSE 50% 50 ML SYRINGE IV; +DICL1GEL3 TOP; +ELIQ5TAB PO; +FLON1SPR; +FURO20TA2 PO; +FURO80TA2 PO; +GLIP5TAB8 PO; -GLUCAGON FOR INJ 1 MG VIAL (J1610) SC; -GLUCOSE 4 GM CHEW TABLET PO; +HYDR-3911 PO; +HYDR100T PO; -IPRATROPIUM 0.5MG/ALBUTEROL 2.5MG INH SOL UD 3ML (DUONEB)(J7620) NEB; +ISOS1TAB13 PO; +ISOS20TAB PO; +ISOS60TA2 PO; +K-TA1TAB PO; +KLOR10TA76 PO; +LORA10CA PO; -ONDANSETRON 4MG/2ML VIAL (J2405) IV; +POTA10CA32 PO; +QNAS80AE; +SITA50TAB PO; +SPIR-10 PO; +TORS100T PO; +TOUJ1.2I SC
--- NOTE | 2018-10-24 08:30 | REP ---
Limited abdominal sonography: History: Abdominal mass right lower quadrant. Comparison CT study July 15, 2018. Findings: Right lower quadrant scanning is performed. The area of the palpable abnormality. Soft tissue edema is seen in the anterior abdominal wall region. There is no evidence of hernia, mass or localized fluid collection. Impression: Soft tissue edema is visible in the area of the palpable abnormality in the right lower quadrant of the abdominal wall. Otherwise negative. Electronically Signed by Leonidas Yancey MD 10/24/2018 08:22 A
== END ==
LOC: M RAD 07:39
PROVIDERS: ATTEND Family Medicine
DX: R19.03 Right lower quadrant abdominal swelling, mass and lump (principal)

== ENCOUNTER 2018-11-05 04:35 | Inpatient (IN) | payer MEDICARE, MEDICAID ==
[~2018-11-05] VITALS: Ht 188 cm; Wt 123.5 kg
[2018-11-05] MEDS ORDERED: dexameTHASONE 20 MG/5 ML VIAL (J1100) IV ONE (05:30)
[2018-11-05] MEDS ORDERED: ALBUTEROL SULFATE 2.5 MG/0.5 ML INH NEB SOLN INH ONE (05:30)
[2018-11-05] MEDS ORDERED: IPRATROPIUM 0.5MG/ALBUTEROL 2.5MG INH SOL UD 3ML (DUONEB)(J7620) NEB ONE (05:30)
--- NOTE | 2018-11-05 06:06 | REPVR ---
EXAM: CT Head Without Contrast EXAM DATE/TIME: 11/05/2018 5:25 AM CLINICAL HISTORY: 73 years old, male; Injury or trauma; Fall; Additional info: Tr TECHNIQUE: Axial computed tomography images of the head/brain without contrast. All CT scans at this facility use at least one of these dose optimization techniques: automated exposure control; mA and/or kV adjustment per patient size (includes targeted exams where dose is matched to clinical indication); or iterative reconstruction. COMPARISON: No relevant prior studies available. FINDINGS: Brain: There is no acute intracranial abnormality. Moderate prominence of ventricles and sulci representing volume loss. Moderate small vessel ischemic changes are seen. There is no mass, midline shift, or mass effect. Resendez-white matter differentiation is preserved. There is no evidence of hemorrhage. There is no extra-axial fluid collection. Basal cisterns are patent. Ventricles: See Brain Finding. Bones/joints: Unremarkable. No acute fracture. Sinuses: Visualized sinuses are unremarkable. No acute sinusitis. Mastoid air cells: Visualized mastoid air cells are unremarkable. No mastoid effusion. Soft tissues: Minimal left frontal soft tissue prominence. IMPRESSION: 1. Moderate volume loss and small vessel ischemic changes. 2. No acute intracranial abnormality. Electronically signed by: Shannan Clarke On 11/05/2018 06:06:14 AM
[2018-11-05 06:29] LABS: BASO % 0.2 % (0.0-1.0); EOS % 0.1 % (0.0-3.0); HEMATOCRIT 43.4 % (42.0-52.0); LYMPH # 0.9 10^3/uL (1.5-4.5); LYMPH % 9.9 % (24.0-44.0); MEAN CORPUSCULAR HEMOGLOBIN 24.9 pg (27.0-33.0); MEAN CORPUSCULAR HGB CONC 32.3 g/dl (32.0-36.5); MEAN CORPUSCULAR VOLUME 77.1 fl (80.0-96.0); MONO # 1.1 10^3/uL (0.0-0.8); MONO % 12.3 % (0.0-5.0); NEUTROPHILS # 6.9 10^3/uL (1.8-7.7); NEUTROPHILS % 76.9 % (36.0-66.0); PLATELET COUNT, AUTOMATED 206 10^3/uL (150-450); RED BLOOD COUNT 5.63 10^6/uL (4.30-6.10); WHITE BLOOD COUNT 8.9 10^3/uL (4.0-10.0)
[2018-11-05] MEDS ORDERED: FUROSEMIDE 100 MG/10 ML VIAL (J1940) IV ONE (06:45)
[2018-11-05 07:09] LABS: CALCIUM LEVEL 8.6 MG/DL (8.8-10.2); CREATININE FOR GFR 2.27 MG/DL (0.70-1.30); GLOMERULAR FILTRATION RATE 36.7 (>42); MB/CK RELATIVE INDEX 3.05 (< OR =4); POTASSIUM SERUM 5.8 MEQ/L (3.5-5.1); TROPONIN I 0.03 NG/ML (< 0.10)
[2018-11-05] MEDS ORDERED: NS 1,000 ML IV SCH (07:45)
[2018-11-05 07:48] LABS: ABG BASE EXCESS -1.4 (-2.0-2.0); ABG HCO3 22.6 MEQ/L (22.0-26.0); ABG O2 SATURATION 92.5 % (95.0-99.0); ABG PARTIAL PRESSURE CO2 35.9 mmHg (35.0-45.0); ABG STANDARD HCO3 23.2 MEQ/L (22.0-26.0); ABG TOTAL CO2 23.7 MEQ/L (23.0-31.0); ABG pH (ARTERIAL) 7.417 UNITS (7.350-7.450)
[2018-11-05 07:58] LABS: ALBUMIN 3.3 GM/DL (3.2-5.2); BILIRUBIN,DIRECT 1.1 MG/DL (0.0-0.2); BILIRUBIN,TOTAL 2.3 MG/DL (0.2-1.0); C REACTIVE PROTEIN QUANTITATIV 1.74 MG/DL (0.00-0.30); TOTAL PROTEIN 7.2 GM/DL (6.4-8.2)
--- NOTE | 2018-11-05 08:16 | REP ---
Clinical: Dyspnea. Technique: Portable semiupright view of the chest. Comparison: 07/15/2018. Findings: Stable cardiomegaly is appreciated. Mild pulmonary vascular congestion and interstitial edema including trace right basilar atelectasis cannot be excluded. No obvious effusion. No pneumothorax. Skeletal structures intact. Single lead pacemaker again noted. Impression: Cardiomegaly with possible mild pulmonary vascular congestion/interstitial edema. Questionable trace right basilar atelectasis. Electronically Signed by Zachary Saxena MD 11/05/2018 08:08 A
[2018-11-05 08:24] LABS: INFLUENZA A AMPLIFICATION NEGATIVE (NEGATIVE); INFLUENZA B AMPLIFICATION NEGATIVE (NEGATIVE)
[2018-11-05 08:34] LABS: OSMOLALITY URINE 352 MOSM/KG (500-800)
[2018-11-05 08:43] LABS: INR 1.66; PROTHROMBIN TIME 19.9 SECONDS (12.1-14.4)
[2018-11-05 08:44] LABS: SODIUM,RANDOM URINE < 10 MEQ/L
[2018-11-05 08:44] LABS: PARTIAL THROMBOPLASTIN TIME 38.5 SECONDS (25.4-37.6)
[2018-11-05 08:59] LABS: FREE T4 1.73 NG/DL (0.76-1.46); THYROID STIMULATING HORMONE 2.25 uIU/ML (0.358-3.740)
--- NOTE | 2018-11-05 09:26 | REP ---
RIGHT UPPER QUADRANT ULTRASOUND: Real-time sonographic evaluation of the right upper quadrant performed. Comparison made with prior study of 10/24/2018. Once again, there appears to be contracted gallbladder containing stones as on prior study. There is no adjacent free fluid. There is mild intrahepatic biliary dilatation. Common bile duct is normal at 4 mm. There is mild increased echotexture diffusely throughout the liver. This suggests some degree of fatty infiltration. There is no gross liver mass. Pancreas could not be seen due to patient body habitus and overlying bowel gas. Right kidney demonstrates no hydronephrosis with normal size 14.4 cm in length. IMPRESSION: Once again, there appears to be a contracted gallbladder containing stones with no adjacent free fluid. Common bile duct is normal in diameter at 4 mm. There does appear to be mild intrahepatic biliary dilatation. Electronically Signed by Sinan Resendez MD 11/05/2018 12:24 P
--- NOTE | 2018-11-05 09:27 | REP ---
RIGHT LOWER QUADRANT ABDOMINAL WALL ULTRASOUND: Real-time sonographic evaluation of right lower quadrant abdominal wall performed at the site of a reported palpable abnormality. Comparison made with prior study of 10/24/2018. Once again, there is scattered soft tissue edema. No focal fluid collection or mass is seen. Findings are similar to the prior study. IMPRESSION: Soft tissue edema without mass or fluid collection. Electronically Signed by Sinan Resendez MD 11/05/2018 12:24 P
--- NOTE | 2018-11-05 09:45 | REP ---
Clinical: Flank pain. Pyelonephritis. Technique: Axial noncontrast images from the lung bases to the pubic symphysis with coronal and sagittal re-formations. Comparison: 07/15/2018. Findings: Lung bases demonstrate emphysematous changes along with cardiomegaly. The liver itself is relatively normal for noncontrast evaluation. There is evidence for a biliary stent extending through the common bile duct into the duodenum along with pneumobilia extending into the liver. Spleen, pancreas, and bilateral adrenal glands appear normal. Moderate bilateral symmetric perinephric stranding is appreciated without hydronephrosis. A 12 mm obstructing calculus is identified in the right renal pelvis. The enteric system is without obstruction or obvious acute inflammatory process. A normal appendix is identified in the right lower quadrant. There appears to be inflammatory stranding and small amount of fluid along the right paracolic gutter extending into the pelvis (right greater than left) which is of uncertain etiology or clinical significance. Pelvis demonstrates normal bladder. Prostate gland is enlarged measuring approximately 4.6 cm maximal transverse diameter. No free air. No significant adenopathy. Abdominal aorta without aneurysm. Small fat containing periumbilical hernia again identified. Osseous structures demonstrate degenerative changes without focal osseous abnormality. Impression: 1. Biliary stent extends to the pancreas into the duodenum with pneumobilia noted. 2. Moderate stranding surrounds the bilateral kidneys which may be chronic. Pyelonephritis cannot be excluded and requires correlation with urinalysis. 12 mm nonobstructing right renal calculus noted. No hydronephrosis. 3. Inflammatory stranding through the mesentery with small amount of fluid along the right paracolic gutter extending into the pelvis of uncertain etiology or significance. 4. Scattered colonic diverticula without acute diverticulitis. No bowel obstruction. Electronically Signed by Zachary Saxena MD 11/05/2018 09:36 A
[2018-11-05] MEDS ORDERED: CEFEPIME HCL 2 GM in D5W MINI-BAG PLUS 50 ML IV ONE (10:00)
[2018-11-05] MEDS ORDERED: CARV25TA PO (10:21)
[2018-11-05] MEDS ORDERED: TORS100T PO (10:21)
[2018-11-05] MEDS ORDERED: CARV6.25 PO (11:02)
[2018-11-05] MEDS ORDERED: FLUTISP (11:05)
[2018-11-05] MEDS ORDERED: CALC1CAP31 PO (11:05)
[2018-11-05] MEDS ORDERED: ALLO100T PO (11:05)
[2018-11-05] MEDS ORDERED: SPIR-10 PO (11:05)
[2018-11-05] MEDS ORDERED: GLUCAGON FOR INJ 1 MG VIAL (J1610) SC PRN (12:15)
[2018-11-05] MEDS ORDERED: GLUCOSE 4 GM CHEW TABLET PO PRN (12:15)
[2018-11-05] MEDS ORDERED: DEXTROSE 50% 50 ML SYRINGE IV PRN (12:15)
--- NOTE | 2018-11-05 12:58 | HPE ---
DATE OF ADMISSION: 11/05/2018 ATTENDING PHYSICIAN: Dr. Chioma Gaona PRIMARY CARE PHYSICIAN: Dr. Pj Gaona CHIEF COMPLAINT: Generalized weakness. HISTORY: Blas Vargas is a 73-year-old with a number of severe chronic medical problems, who fell to the floor and could not stand. He had to kneel on the floor for several hours. He felt too weak at the emergency room to go home. The patient has a complicated past medical history. He was recently hospitalized with biliary obstruction and had to be transferred to the [facility] due to lack of GI coverage, either here or in [place]. He had a biliary stent placed, which was supposed to have been removed by now. He also was supposed to be seen for an elective cholecystectomy. He has not seen GI since his discharge. He was referred by Dr. Pj Gaona on 10/22/2018 to [facility] gastroenterology, Dr. Oleary, but that appointment has not yet occurred. He has a history of congestive heart failure, ejection fraction of 10% on echocardiogram from 07/2017. He is now followed by Dr. Biswas, [facility]. I do not have more recent echocardiogram. He has an implantable cardioverter-defibrillator (ICD) placed 2 years ago in [place]. He was seen by a records management technician at [facility]. They adjusted his medications, reducing his carvedilol dose. His blood pressure would not tolerate Entresto. He has stage III chronic kidney disease followed by Dr. Ferreira at the paedodontist's office, type 2 diabetes, morbid obesity, atrial fibrillation, has AV tach leading to an ICD. He had Klebsiella bacteremia with associated cholangitis in July of 2018 that led to his endoscopic retrograde cholangiopancreatography (ERCP) and biliary stent. SURGICAL HISTORY: ICD in 2016. Left total knee in 2004. Right total knee in 2003. Left inguinal hernia in 1996. FAMILY HISTORY: Father of myocardial infarction ([place]) in 1992. Mother of unknown cause in 1973. Two sisters. Four brothers. One of cirrhosis. Two of MIs. SOCIAL HISTORY: Nonsmoker. Occasional to rare alcohol use. Retired [employer]. He is . ALLERGIES: None known. REVIEW OF SYSTEMS: He has crampy abdominal pain, mostly in right lower extremity. He has no frequency, urgency, or dysuria. He feels generally weak. He denies cough or shortness of breath. Denies chest pain. MEDICATIONS: - allopurinol 100 mg daily - Eliquis 5 mg twice a day - aspirin 81 mg daily - calcitriol 25 mcg three days a week - carvedilol 6.25 mg twice a day - Voltaren Gel 2-4 grams three times a day - fluticasone nasal spray one spray daily - isosorbide dinitrate 10 mg three times a day - Januvia 50 mg daily - spironolactone 25 mg daily - torsemide 50 mg daily - Toujeo 10 units nightly PHYSICAL EXAMINATION: 117/86, pulse of 97, respiratory rate 20, 95 oxygen (O2) saturation. He is afebrile. General appearance: Elderly. Chronically ill-appearing. Looks anxious, which I think is his baseline, unchanged from when I saw him in the office for Dr. Gaona in August. HEENT: Pupils equal, round, and reactive to light. Tympanic membranes normal. Pharynx benign. Neck: No masses. No jugular venous distention (JVD). Lungs: Decreased breath sounds. Heart: Regular rate and rhythm. 1/6 holosystolic murmur at the apex. Abdomen: Soft. Tender right lower abdominal wall. It is not a deep visceral pain this morning in abdominal wall. Extremities: 1+ peripheral edema. LABORATORIES: White count 8.9, hemoglobin 14, platelets 206. Sodium 123, potassium 5.8, BUN 53, creatinine 2.27, glucose 219, bilirubin 2.3, direct bilirubin 1.1, BNP 1412 which is actually the lowest BNP he has had (generally in the 2754-1886 range). IMPRESSION: 1. Generalized weakness. I think it is multifactorial, and he will be on cardiac rehabilitation specialist. Will check CIPs and repeat echocardiogram. Blood and urine cultures are pending. 2. Question of sepsis. His lactic acid was elevated. He is in acute on chronic renal failure. Baseline creatinine is 1.5. It is currently 2.27. He looks to have some decompensated congestive heart failure. 3. Decompensated severe systolic congestive heart failure. I have ordered some furosemide to initiate a diuresis. He, unfortunately, was given some intravenous (IV) fluid in the emergency room. He had significant lower extremity edema. He looks volume overloaded on examination, which I have diuresed this out of him. 4. Biliary stent. Recent cholangitis. He is on cefepime, which we will continue. Urine and blood cultures are pending. 5. Chronic anxiety. He was referred to behavioral health for this in July. 6. Chronic cholecystitis. He was referred by Dr. Gaona, his primary care provider, to a general surgeon 10/22/2018. His appointments have not been established yet. Will get a surgery consult while he is in hospital. 7. Recent placement of biliary stent. That was supposed to have been removed more than a few weeks ago, and it is still in place. Consult gastroenterology.
[2018-11-05] MEDS ORDERED: ENOXAPARIN 150 MG/ML SYR (J1650) SC ONE ×2 (13:00→23:00)
[2018-11-05] MEDS ORDERED: ACETAMINOPHEN 325 MG TAB As Ordered ONE (13:41)
[2018-11-05] MEDS: ACETAMINOPHEN 500 MG TAB PO PRN ×2 (13:42→19:51)
[2018-11-05] MEDS: CARVedilol 6.25 MG TAB PO SCH ×2 (15:40→20:38)
[2018-11-05] MEDS: HumaLOG INSULIN (NovoLOG) PER UNIT SC SCH ×3 (15:40→20:39)
[2018-11-05] MEDS: ISOSORBIDE DIN (ISORDIL) 10 MG TAB PO SCH ×2 (15:40→17:25)
[2018-11-05] MEDS: FUROSEMIDE 100 MG/10 ML VIAL (J1940) IV SCH ×3 (15:40→23:12)
[2018-11-05 16:00] VITALS: BP 136/99
[2018-11-05] MEDS ORDERED: SLF 3 ML SYR IV PRN (17:00)
[2018-11-05] MEDS: ALLOPURINOL 100 MG TAB PO SCH (17:27)
--- NOTE | 2018-11-05 17:37 | CR ---
DATE OF CONSULTATION: 11/05/2018 REASON FOR CONSULTATION: Gallstones. BRIEF HISTORY OF PRESENT ILLNESS: The patient is a 73-year-old black male who presents with multiple medical issues, who was at home, fell and had some weakness and most recently has been seen in the emergency room, transferred to [facility] for an endoscopic retrograde cholangiopancreatography (ERCP) with biliary stent. He does have an appointment later on this month with gastroenterology and, at this point, has not been referred on for a cholecystectomy as of yet. The patient is here for additional recommendations concerning treatment. The patient does not complain of any right upper quadrant pain and does not complain of any biliary colic. He does have evidence of elevated bilirubin without liver function test abnormalities. The patient has significant bacteruria and appears to have a urinary tract infection, although he states he has very frequent ones over the last six months. PAST MEDICAL HISTORY: Significant for a history of congestive heart failure, history of low ejection fraction of 10%, history of implantable cardioverter/defibrillator, history of chronic kidney disease, history of morbid obesity, history of atrial fibrillation, history of cholangitis, history of diabetes mellitus, history of implantable cardioverter defibrillator (ICD) placement in 2015, left total knee in 2003, right total knee in 2003, left inguinal hernia in 1993. MEDICATIONS: Include allopurinol, Eliquis, aspirin, calcitriol, carvedilol, Voltaren Gel, fluconazole, Flonase, isosorbide dinitrate, Januvia, spironolactone, torsemide, and Toujeo. PHYSICAL EXAMINATION: The patient is a morbidly obese male who looks stated age. HEENT is unremarkable, although he does have some scleral icterus. Neck is supple without adenopathy. Lungs are diminished at the bases bilaterally. Heart is regular with multiple irregular beats and a slight murmur. Abdomen is soft, nontender, although he does complain of some minimal discomfort along some inflammatory changes on his abdominal wall in the right lower quadrant which may actually be some fat necrosis or a skin issue, but no evidence of true cellulitis in this area. He states this is a chronic issue. His white count is normal. IMPRESSION AND PLAN: The patient has some generalized weakness and from his standpoint, medicine is doing his workup and evaluation for this. However, this does not sound like an acute cholecystitis issue or an ascending cholangitis. At this point, it seems as though it probably is urosepsis. His bilirubin is elevated but that may be secondary to some hemolysis and other etiologies such as hepatic congestion may be contributing to this, but importantly, at this point, I do feel that he does need his biliary stent removed. It may be reasonable to proceed with a HIDA scan while he is here to make sure that there is no other obstructing components of this, but it does not seem as though that is an issue. In general from the standpoint of gallstones when patients are a significant cardiac or respiratory risk or are overall a high operative risk, operative treatment for them is in general an endoscopic retrograde cholangiopancreatography (ERCP) with papillotomy, and thus if the patient passes any stones, typically those stones are passed through the sphincterotomy and are not problematic for him. There is a small chance, however, that the patient can still develop an acute episode of cholecystitis in the future but this is relatively small and in high risk individuals may not be an indication for operative intervention. However, it may be an issue for percutaneous drainage should a dilated gallbladder develop because of cystic duct obstruction. At this point, the patient has no evidence of cystic duct obstruction and, matter of fact, his gallbladder is quite contracted on his study. My recommendation is for gastroenterology to evaluate him for possible removal of the stent and then after that have cardiology assess his overall candidacy for operative intervention and with a severely low ejection fraction and overall significant comorbidities, I would be surprised if they do not feel that he is a relatively high operative risk for intervention. I also feel that he will need resolution of his overall current issue back to his "baseline" prior to entertaining surgical intervention. Fortunately, gastroenterology should be able to remove his stent without general anesthesia. However, if the stent is planned on being replaced in this area then will probably need general anesthesia and if that is the case, I am not sure if they will want to proceed with this. That will have to be evaluated by the manager technical sales.
[2018-11-05 18:49] LABS: MB/CK RELATIVE INDEX 4.26 (< OR =4); TROPONIN I 0.04 NG/ML (< 0.10)
--- NOTE | 2018-11-05 19:48 | CR ---
DATE OF CONSULTATION: 11/05/2018 REQUESTING PHYSICIAN: Cornelio Nava MD REASON FOR CONSULTATION: Biliary stent management. 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 He presented in July 2018 to [facility] with what appears to have been biliary colic, Klebsiella bacteremia and was transferred to [facility] where he underwent ERCP, stone extraction, sludge extraction and a papillotomy. He also had a plastic biliary stent placed to protect his papilla from further stones until gallbladder surgery could be undertaken. This was done approximately 3-1/2 months ago and the biliary stent is in need for removal or exchange. The patient presents to [facility] this morning with worsening generalized weakness, fatigue and dyspnea as well as suprapubic abdominal pain. He denies any nausea, vomiting. He denies any fevers or chills. He denies any abdominal pain or any other biliary symptoms. PAST MEDICAL HISTORY: 1. Advanced congestive heart failure with markedly elevated central venous pressures. 2. Congestive hepatopathy. 3. Morbid obesity. 4. Renal insufficiency. 5. Atrial fibrillation and a ventricular arrhythmia; has implantable cardioverter defibrillator (ICD) in place, on Eliquis. PAST SURGICAL HISTORY: ICD placement. Hernia repair. Knee surgery. ERCP with papillotomy with stone extraction, with common bile duct stent placement on 07/23/2018. FAMILY HISTORY: Noncontributory. ALLERGIES: No known drug allergies. MEDICATIONS AT HOME: - isosorbide dinitrate - Januvia - spironolactone - torsemide - Toujeo - calcitriol - Eliquis - allopurinol PHYSICAL EXAMINATION General: This is a morbidly obese male in moderate respiratory distress. He appears fatigued but nontoxic at this time. Head, eyes, ears, nose and throat: Is grossly without abnormalities. I see no oral thrush. Neck is negative for lymph nodes. Jugular venous distention (JVD) is at 6-7 cm above clavicle. Lungs are clear bilaterally. Heart is irregularly irregular. There is a 2/6 systolic murmur in the aortic area and a murmur in the pulmonic area. I do not appreciate any gallops. Abdomen: Is obese, protuberant. No definite masses palpable. No definite fluid wave. I am unable to palpate his liver. He is point tender in the right suprapubic area with some indurated subcutaneous tissue. There is no other abdominal tenderness. Extremities: Is positive for bilateral pedal edema. Rectal examination: The patient is deferred as per patient request. IMAGING STUDIES Including gallbladder ultrasound, pelvic ultrasound and abdominal CT dated 11/05/2018. These have been reviewed. LAB WORK: WBC 8.9, hemoglobin 14, platelet count is 206, BUN 53, creatinine 2.27, total bilirubin 2.3, direct bilirubin 1.1, alkaline phosphatase 101, AST 28, ALT 41. PT/INR 1.66. IMPRESSION 1. Biliary stent is in place since 07/23/2018. 2. Previous cholangitis resulting an ERCP with papillotomy, common bile duct stone extraction and common bile duct stent placement to protect biliary flow while awaiting cholecystectomy. 3. Congestive hepatopathy with mildly elevated bilirubin. 4. Congestive heart failure, nonischemic with known markedly elevated central venous pressures. 5. Renal insufficiency. 6. Morbid obesity. DISCUSSION At present this patient's main presentation appear that of probable urosepsis and continued congestive heart failure. He does not have any symptoms of cholangitis or cholecystitis at this time. He has a biliary stent in place which is patent as evidenced by pneumobilia. However, the stent has been placed over 3 months ago in anticipation of a cholecystectomy which is never happened in the interim. His biliary stent is in need for removal or exchange to avoid future complications. On review of his upper port I do see that he does have a papillotomy that was done at the time with ERCP. The future management options on this patient's biliary stent will mainly depend on this patient's fitness to undergo general anesthesia. I WOULD RECOMMEND THE FOLLOWIN. Cardiology evaluation and possible optimization for general anesthesia. WE HAVE THE FOLLOWING OPTIONS: 1. If he can be cleared for general anesthesia and a cholecystectomy, then I would proceed with a cholecystectomy first and I will pull the stent endoscopically in the next 1-2 weeks. 2. If the patient can be cleared for general anesthesia, but not for cholecystectomy then I would recommend that we do an ERCP under general and exchange the stent to once again temporize while he will be awaiting cholecystectomy. 3. If he cannot be optimized or cleared for general anesthesia and this is the most likely scenario then we will have to simply pull the stent and rely on the presence of the papillotomy to allow small stones and sludge to pass as they come through. I do note that his last option is not my preferred option as this certainly does not protect against a larger stone that may get impacted and create problems such as recurrent cholangitis and biliary colic, etc. Overall a consultation with cardiology will be quite helpful at this time.
[2018-11-05 20:00] VITALS: BP 123/69
[2018-11-05] MEDS ORDERED: SIMETHICONE 80 MG CHEW TAB PO ONE (20:15)
[2018-11-05] MEDS: ASPIRIN 81 MG ENTERIC TAB PO SCH (20:38)
[2018-11-05] MEDS: SLF 3 ML SYR IV SCH (20:39)
[2018-11-05] MEDS ORDERED: diphenhydrAMINE 25 MG CAP PO ONE (23:00)
[2018-11-05 23:19] VITALS: BP 105/75
[2018-11-06] MEDS ORDERED: SIMETHICONE 80 MG CHEW TAB PO PRN (00:45)
--- NOTE | 2018-11-06 01:26 | IPNPDOC ---
Text Note Date of Service The patient was seen on 11/06/18. NOTE pt admitted with generalized weakness. being treated CHF ex, Urosepsis, ? helen iary stent obstruction. does not appear that he has cholangitis despite an impressive lactate. He is being followed by surgery and GI. Nurse reported coffee ground emesis at approximately 1:15 am on 11/06/18. Pt is on eliquis at home due to hx of a.fib. He is on Lovenox here at hospital . UGI bleed: will hold lovenox, serial Hb, PPI BID, type and screen and transfuse keep Hb > 8 GI already on board, will request f/u in am . DDX: gastritis, esophagitis, PUD?? VS,Fishbone, I+O VS, Fishbone, I+O Laboratory Tests 11/05/18 05:00 Red Blood Count 5.63, Mean Corpuscular Volume 77.1 L, Mean Corpuscular Hemoglobin 24.9 L, Mean Corpuscular Hemoglobin Concent 32.3, Red Cell Distribution Width 19.0 H, Neutrophils (%) (Auto) 76.9 H, Lymphocytes (%) (Auto) 9.9 L, Monocytes (%) (Auto) 12.3 H, Eosinophils (%) (Auto) 0.1, Basophils (%) (Auto) 0.2, Neutrophils # (Auto) 6.9, Lymphocytes # (Auto) 0.9 L, Monocytes # (Auto) 1.1 H, Eosinophils # (Auto) 0.0, Basophils # (Auto) 0.0 11/05/18 06:28 Calcium Level 8.6 L, Total Creatine Kinase 167 Vital Signs Date Time Temp Pulse Resp B/P (MAP) Pulse Ox O2 Delivery O2 Flow Rate FiO2 11/05/18 23:19 98.3 90 20 105/75 (85) 95 11/05/18 08:57 Room Air 11/05/18 04:57 2.0 I&O- Last 24 Hours up to 6 AM 11/06/18 06:00 Intake Total 1920 ml Output Total 1900 ml Balance 20 ml SATURDAY,KEELY STEIN Nov 06, 2018 01:26
[2018-11-06] MEDS ORDERED: PANTOPRAZOLE 40MG INJ (PROTONIX) (C9113) IV ONE (01:30)
[2018-11-06] MEDS: ONDANSETRON 4MG/2ML VIAL (J2405) IV PRN (01:40)
[2018-11-06] MEDS ORDERED: METOCLOPRAMIDE INJ 10MG/2ML VIAL (J2765) IV ONE (01:45)
[2018-11-06 02:08] LABS: MB/CK RELATIVE INDEX 4.64 (< OR =4); TROPONIN I 0.07 NG/ML (< 0.10)
[2018-11-06 04:00] VITALS: BP 117/81
[2018-11-06 05:53] LABS: HEMATOCRIT 39.3 % (42.0-52.0); HEMOGLOBIN 13.1 g/dl (13.5-17.5); MEAN CORPUSCULAR HEMOGLOBIN 24.9 pg (27.0-33.0); MEAN CORPUSCULAR HGB CONC 33.3 g/dl (32.0-36.5); MEAN CORPUSCULAR VOLUME 74.6 fl (80.0-96.0); PLATELET COUNT, AUTOMATED 168 10^3/uL (150-450); RED BLOOD COUNT 5.27 10^6/uL (4.30-6.10); WHITE BLOOD COUNT 6.2 10^3/uL (4.0-10.0)
[2018-11-06] MEDS: SLF 3 ML SYR IV SCH ×3 (06:00→21:46)
[2018-11-06 06:05] LABS: CALCIUM LEVEL 8.6 MG/DL (8.8-10.2); CREATININE FOR GFR 2.36 MG/DL (0.70-1.30); GLOMERULAR FILTRATION RATE 35.1 (>42); POTASSIUM SERUM 5.2 MEQ/L (3.5-5.1)
[2018-11-06 06:17] LABS: ALBUMIN 2.9 GM/DL (3.2-5.2); BILIRUBIN,DIRECT 1.6 MG/DL (0.0-0.2); BILIRUBIN,TOTAL 2.6 MG/DL (0.2-1.0); TOTAL PROTEIN 6.5 GM/DL (6.4-8.2)
[2018-11-06] MEDS: FUROSEMIDE 100 MG/10 ML VIAL (J1940) IV SCH ×3 (06:26→17:29)
[2018-11-06] MEDS: HumaLOG INSULIN (NovoLOG) PER UNIT SC SCH ×4 (06:26→21:45)
--- NOTE | 2018-11-06 07:11 | CR ---
DATE OF CONSULTATION: 11/05/2018 CARDIOLOGY CONSULTATION: REFERRING PROVIDER: Dr. Cornelio Nava PRIMARY PROVIDER: Dr. Pj Gaona PRIMARY BUS MONITOR: Dr. Jonathan Biswas BRAIDED BAND ASSEMBLER: Dr. Tricia Ferreira REASON FOR THE CONSULTATION: Heart failure. HISTORY OF PRESENT ILLNESS: 73-year-old male with a history of severe cardiomyopathy according to the most recent echocardiogram available in the system and, at that time, it was estimated his left ventricular ejection fraction (LVEF) was 10%. He also has a history of ventricular tachycardia and automatic implantable cardioverter-defibrillator (AICD)/defibrillator implantation, atrial fibrillation that has been chronic and persistent, chronic kidney disease, diabetes mellitus, and obesity. He has been dealing with kidney stone associated with cholangitis. Last fall, he was transferred to [facility], where he had endoscopic retrograde cholangiopancreatography (ERCP) and biliary stent placement. He was supposed to have this removed and also was supposed to have elective cholecystectomy, but it seems that it has been difficult for him to go back to [place] because he has no support. His primary had recently seen him and referred him to see a corporate communications intern in [facility], Dr. Oleary, and he is waiting for an appointment. He was admitted today; he fell at home. It seemed that he has been having generalized weakness. He does not walk much. Upon arrival at the emergency room (ER), his vital signs were stable with a blood pressure of 121/85, pulse 94, and he was afebrile. His labs revealed an elevated lactic acid, hyperkalemia, and elevated proBNP. Serum troponin was normal. When I saw Mr. Blas Vargas on the floor, he was sitting up in bed in no acute distress at rest and appeared to be mildly short of breath. He denies any chest pain or palpitations or dizziness or focal manifestation. He does not walk much. He denies any fever or chills. His main concern is the gallbladder and the biliary stent. He has been having right-sided abdominal pain/discomfort on and off. He denies any vomiting or diarrhea or melena or hematemesis. He has no cough or hemoptysis or fever. He has no focal manifestation. He has a past medical history positive for dilated cardiomyopathy, nonsustained ventricular tachycardia and AICD/defibrillator implantation in April of 2016, atrial fibrillation that has been persistent and chronic, chronic kidney disease, diabetes mellitus, obesity, gout, and biliary stones. There is no history of obstructive coronary artery disease, myocardial infarction, CVA, hypertension, hyperlipidemia. Last assessment of his LVEF was recorded to be 10%. PAST SURGICAL HISTORY: Is positive for AICD/defibrillator implantation, bilateral knee surgery, and left inguinal hernia repair in 1996. In 2018, he had ERCP and biliary stent placement at [facility]. FAMILY HISTORY: Noncontributory. SOCIAL HISTORY: Patient says he lives alone. He denies any smoking or ethyl alcohol (EtOH) abuse. ALLERGIES: He has no known drug allergies. ADVANCE DIRECTIVES: Patient is a FULL CODE. CURRENT MEDICATIONS: Are: - cefepime 1 gram intravenously (IV) every 24 hours - Lovenox 140 mg subcu every 12 hours - aspirin 81 mg by mouth daily - regular insulin coverage - isosorbide dinitrate 10 mg by mouth three times a day - Tylenol 1000 mg by mouth every 6 hours as needed for mild pain or fever - Flonase nasal spray 0.05% twice a day as needed - Lasix 80 mg IV every 6 hours - allopurinol 100 mg by mouth daily - carvedilol 6.25 mg by mouth twice a day - also on glucose tablet as well as glucagon and D50 as needed for episode of hypoglycemia MEDICATION PRIOR COMING TO THE HOSPITAL: - allopurinol 100 mg by mouth daily - Eliquis 5 mg by mouth twice a day - aspirin 81 mg by mouth daily - calcitriol 25 mcg by mouth three days a week - carvedilol 6.25 mg by mouth twice a day - Voltaren gel - fluticasone nasal spray - isosorbide dinitrate 10 mg by mouth three times a day - Januvia 50 mg by mouth daily - spironolactone 25 mg by mouth daily - torsemide 50 mg by mouth daily - Toujeo 10 units subcu nightly ON PHYSICAL EXAMINATION: Patient is alert and oriented, in no acute distress at rest, but appeared to be mildly short of breath. His vital signs when I saw him revealed a blood pressure of 136/99 with a pulse of 91, respiration 18-20, and maximum temperature was 98 degrees Fahrenheit with an oxygen saturation of 95% on room air. Examination of the head: Atraumatic. Neck is supple with extended jugular. The lungs revealed minimal crackles at the bases. The heart examination revealed an irregular heart sound without gallops. The point of maximal impulse (PMI) is displaced inferiorly and laterally. There is no rub. There is a systolic murmur grade 1-2 over 6 at the lower left sternal border without any significant radiation. Abdomen is soft, obese, and nontender. Extremities revealed +2 bilateral lower leg and pedal edema. Neurological examination grossly was negative for focal deficit. LABS: BMP done today revealed a sodium of 123, potassium 5.8, chloride 86, CO2 of 20, BUN 53, creatinine 2.27, GFR 36.7, fasting glucose 219, calcium 8.6. Liver enzymes revealed a total bilirubin of 2.3, direct bilirubin 1.1, AST 28, ALT 41, alkaline phosphatase 101, total protein 7.2, and albumin 3.3. Serum TSH is 2.250. Serum troponin is negative. Serum proBNP is 1412. Serum lactic acid lactic acid was 7.8. CBC revealed a WBC of 8.9, hemoglobin 14.0, hematocrit 43.4, and platelet 206,000. Urinalysis revealed WBCs and RBCs as well as leukocyte esterase and +3 bacteria. Influenza A and B were negative. Chest x-ray done on 11/05/2018 revealed cardiomegaly with possible mild pulmonary vascular congestion/edema. Head CT revealed volume loss and small vessel ischemic changes; otherwise, no acute disease process. Bladder ultrasound revealed a contracted bladder with stones. Common bile duct was normal at 4 mm. There appeared to be mild intrahepatic biliary dilation. Pelvic ultrasound on 11/05/2018 revealed soft tissue edema without a mass or fluid collection. Abdominopelvic CT on 11/05/2018 revealed biliary stents extending to the pancreas into the duodenum with pneumobilia. It was highly suspicious for chronic pyelonephritis. There was a 12 mm nonobstructive right kidney stone without hydronephrosis. Scattered colonic diverticula noted without diverticulitis. No bowel obstruction. Telemetry was reviewed and revealed atrial fibrillation with a controlled ventricular rate. IMPRESSION: 1. Congestive heart failure, acute on chronic and systolic in nature. 2. History of ventricular tachycardia and automatic implantable cardioverter-defibrillator implantation. 3. Chronic kidney disease. 4. Hyperkalemia. 5. History of diabetes mellitus. 6. Atrial fibrillation, chronic and persistent. 7. Urinary tract infection (UTI), probably sepsis. Probably chronic pyelonephritis. 8. Recent biliary obstruction with cholangitis that required endoscopic retrograde cholangiopancreatography and biliary stent placement. Patient will need elective cholecystectomy and biliary stent removal. Mr. Blas Vargas seems to be stable with mild congestive heart failure secondary to left ventricular systolic dysfunction, acute on chronic. Probably multifactorial, not on adequate medication and also probably not compliant with diet. He is now on IV Lasix, and I will continue the same and monitor closely his BUN, creatinine, and serum potassium. He is on IV antibiotics for presumed infectious process, probably UTI and pyelonephritis. The plan is to proceed with cholecystectomy in the near future, and we will need to optimize his cardiac condition. He is currently only on a beta-jerel. He was on spironolactone but discontinued because of hyperkalemia. It seemed that he was tried on Entresto while at [facility], and he had some problem with his blood pressure. He has no history of underlying coronary artery disease (CAD), and he is already on nitrate; he may benefit from hydralazine. I will discuss that with Dr. Biswas, and he will be seeing him tomorrow, 11/06/2018. It was a pleasure to participate in the care of Mr. Blas Vargas for his underlying cardiac condition. Case was discussed briefly today with Dr. Nava. CHAD
[2018-11-06 08:00] VITALS: BP 109/74
[2018-11-06] MEDS ORDERED: ENOXAPARIN 150 MG/ML SYR (J1650) SC SCH (09:00)
--- NOTE | 2018-11-06 09:19 | IPN ---
DATE: 11/06/2018 When I walked into Mr. Vargas room he was sleeping soundly, he was difficult to arouse and after arousing he would answer very briefly and then fall asleep again. It was difficult to keep him awake for a long period of time. His vital signs this morning blood pressure 109/72, heart rate in 80s and 90s. He is atrial fibrillation. He is afebrile. Saturations 93-95%. His fluid balance yesterday was approximately equal. Weight is 139.3 kg today. He is somnolent but arousable. His jugular venous pulse (JVP) is very high, I would say at least 5 or 6 cm above clavicle. Lungs are reasonably clear, I do not appreciate much of crackles, wheezing or rhonchi. Heart exam reveals muffled heart sound but no gallop appreciated as such. No obvious murmur. Abdomen is obese and soft. There is 3+ edema above the knees. LABORATORY: Sodium once 23, potassium 5.2, BUN 15, creatinine 2.4 and glucose 366. His lactic acid was 7.3 yesterday on the followup, I have not seen followup since. His cardiac enzymes have been negative and on admission his N-terminal proBNP was 1400 which is actually relatively low for him. ASSESSMENT AND PLAN: Mr. Vargas is a 73-year-old man who has severe nonischemic cardiomyopathy with severe left ventricular systolic dysfunction. He presented with generalized weakness which could be a combination of factors. He has a biliary stent and this is being addressed by surgery. His bilirubin is elevated but simultaneously he undoubtedly is in congestive heart failure which I believe is the dominant problem. He currently is receiving 80 mg of furosemide four times a day, but so far the response was not adequate. He has not been receiving any vasodilators either than isosorbide and his blood pressure so far has been acceptable even though it seems to be trending down. I will try to give him small dose of hydralazine, but if it is not successful we may need to employee giving him dobutamine, that is going to be challenging in view of him being on a beta blockers and having atrial fibrillation. I am also concerned about his altered mental status, I will ask for further evaluation of his ABGs if he does not wake up shortly. I want to make sure that he is not severely hypercapnic even though it seems unlikely.
[2018-11-06] MEDS: CEFEPIME HCL 1 GM in D5W MINI-BAG PLUS 50 ML IV SCH (09:32)
[2018-11-06] MEDS: PANTOPRAZOLE 40MG INJ (PROTONIX) (C9113) IV SCH ×2 (09:32→21:44)
[2018-11-06] MEDS: ISOSORBIDE DIN (ISORDIL) 10 MG TAB PO SCH ×3 (09:33→17:29)
[2018-11-06] MEDS: CARVedilol 6.25 MG TAB PO SCH ×2 (09:33→21:44)
[2018-11-06] MEDS: ALLOPURINOL 100 MG TAB PO SCH (09:33)
--- NOTE | 2018-11-06 10:11 | ECGEPIP ---
Stationary ECG Study [facility] - ED Test Date: 2018-11-05 Pat Name: JENNI KELLEY Department: Room: - Gender: M Professional Services Consultant: [facility] : 1945 Requested By: SHALA CHANCE Order Number: [id number] Reading MD: Racheal Adler Measurements Intervals [place] Rate: 82 P: WI: 0 QRS: 124 QRSD: 111 T: 60 QT: 407 QTc: 476 Interpretive Statements ATRIAL FIBRILLATION MARKED RIGHT AXIS DEVIATION LOW QRS VOLTAGE POSSIBLE ANTERIOR MYOCARDIAL INFARCTION, PROBABLY OLD IVCD SIMILAR 07/15/18 Electronically Signed On 11-06-2018 10:11:18 EST by Racheal Adler
[2018-11-06 11:14] LABS: MB/CK RELATIVE INDEX 3.93 (< OR =4); TROPONIN I 0.06 NG/ML (< 0.10)
[2018-11-06 12:00] VITALS: BP 128/74
[2018-11-06] MEDS: FLUTICASONE PROP 0.05% NASAL SPRAY 16 GM (FLONASE) PRN ×2 (12:56→21:44)
--- NOTE | 2018-11-06 13:55 | IPN ---
DATE: 11/06/2018 Blas is seen in progressive care unit (PCU). He feels better. His appetite is improved. He does not feel weak or dizzy. He denies chest pain. He does not say he is short of breath or having abdominal pain. He has been seen by a number of consultants including Dr. Vázquez for surgery, Dr. Justice for gastrointestinal (GI), and [facility] with an initial consultation by Dr. Rodriguez and followup visit today by Dr. Biswas. He had an echocardiogram ordered and results are pending. PHYSICAL EXAMINATION: 128/74. Pulse 84. 97% oxygen saturation in room air. General Appearance: He is alert, conversant. He answers questions normally. Lungs clear. Heart: Regular rate and rhythm. No murmur. Distant sounds. Abdomen: Soft. Nontender. No masses. Trace peripheral edema. LABS: Sodium 123, potassium 5.2, BUN 58, creatinine 2.3, glucose 366. His blood sugars have been 300-400. His troponins are flat. White count 6.2, hemoglobin 13.1, and platelets 168. IMPRESSION: 1. Congestive heart failure with severely reduced ejection fraction of 10%. Repeat echocardiogram is pending. He is being seen by cardiology. I appreciate their input. He has been started on vasodilators with isosorbide and hydralazine. He has not had any net diuresis so far. I am going to increase the dose of his furosemide to 120 mg IV every 6 hours to try and maintain a net diuresis of 1200 mL per day. 2. ? sepsis of urinary source. Continue his antibiotics. He is on Cefepime, dose suggested by clinical pharmacology. Blood cultures are negative so far. Urine culture is pending. 3. History of recent biliary stenting for cholangitis. He has been seen by gastroenterology and appreciate Dr. Justice's consult in which he lays out three options depending on how cardiology feels he would tolerate further intervention. 4. Chronic cholecystitis. He is seen by surgery. Those thoughts have been reviewed as well. 5. Chronic kidney disease with acute kidney injury. His baseline creatinine was around 1.5. It is up to 2.3 now so I think this is from his congestive heart failure. Hopefully, with diuresis this will improve. If not, will get a nephrology consult. He has medical renal disease on his renal ultrasound. 6. Diabetes. He is on a sliding scale with coverage. He uses Januvia and Toujeo as an outpatient. Will start some basal insulin here. Will start him on 20 units as he is averaging about 30 units of coverage a day so far. 7. Coffee ground emesis. Last night he apparently had some coffee ground emesis. This has since stopped. His Lovenox has been held. He has had no recurrence of this. He is on a proton pump inhibitor (PPI). We are advancing his diet and I am going to restart deep vein thrombosis prophylactic dose of Lovenox. 8. Atrial fibrillation. He is on Eliquis as an outpatient. He was previously taking carvedilol as an outpatient which is being continued here with good control of his rate.
--- NOTE | 2018-11-06 16:54 | ECHO ---
DATE OF PROCEDURE: 11/06/2018 REFERRING PHYSICIAN: Dr. Chioma Gaona INDICATION: Congestive heart failure. Height 185 cm Weight is 144 kg. DIMENSIONS: IVS: 1.0 LV 6.4 LVPW: 0.9 LA 5.5 Aorta 3.0 IVC 3.0 FINDINGS: The study is of limited technical quality. Left ventricle is severely dilated and globally hypokinetic. There is atypical septal motion. Overall LVEF is estimated around 10-15%. Right ventricle is also dilated and severely hypokinetic. There is severe biatrial enlargement. Aortic valve appears mildly sclerotic but it has three cusps and normal mobility. Mitral and tricuspid valves appear normal. Limited visualization of pulmonic valve also appears normal. No pericardial effusion is noted. Inferior vena cava is markedly dilated and there is no appreciable collapse with respiration indicative of very high central venous pressure. Aortic root is normal. Aortic arch and abdominal aorta were not well seen. Doppler interrogation reveals no aortic stenosis or insufficiency. There is approximately moderate mitral insufficiency and moderate tricuspid insufficiency. Calculated pulmonary artery pressure is in at minimum in mid 50s which would correspond to moderate but more likely moderately severe pulmonary hypertension. Pulmonic valve is functionally competent. Evaluation of diastolic function is inconclusive due to underlying atrial fibrillation. CONCLUSIONS: 1. Study is of limited technical quality. 2. Dilated severely globally hypokinetic left ventricle with overall estimated LVEF 10-15%. 3. Dilated hypokinetic right ventricle. 4. Severe biatrial enlargement. 5. Competent aortic valve. 6. Moderate mitral and tricuspid insufficiency. 7. Very high central venous pressure. 8. At least moderate and more likely moderately severe pulmonary hypertension. 9. ICD lead apparent in right-sided heart chambers. COMMENT: Subacute bacterial endocarditis (SBE) prophylaxis is not recommended. MTDD
[2018-11-06] MEDS: ACETAMINOPHEN 500 MG TAB PO PRN (19:11)
[2018-11-06 20:00] VITALS: BP_SYST 101; BP_SYST 135; BP_DIAS 62; BP_DIAS 73
[2018-11-06] MEDS ORDERED: LEVEMIR (INSULIN DETEMIR) 1 UNITS/0.01ML SC SCH (21:00)
[2018-11-06] MEDS: ASPIRIN 81 MG ENTERIC TAB PO SCH (21:44)
[2018-11-07] VITALS (7 sets, daily range): BP systolic 90–156; BP diastolic 72–89
[2018-11-07 05:18] LABS: HEMATOCRIT 36.4 % (42.0-52.0); HEMOGLOBIN 12.2 g/dl (13.5-17.5); MEAN CORPUSCULAR HEMOGLOBIN 24.5 pg (27.0-33.0); MEAN CORPUSCULAR HGB CONC 33.5 g/dl (32.0-36.5); MEAN CORPUSCULAR VOLUME 73.2 fl (80.0-96.0); PLATELET COUNT, AUTOMATED 149 10^3/uL (150-450); RED BLOOD COUNT 4.97 10^6/uL (4.30-6.10)
[2018-11-07 05:32] LABS: HEMOGLOBIN A1c 11.2 %
[2018-11-07] MEDS: ACETAMINOPHEN 500 MG TAB PO PRN (05:32)
[2018-11-07 05:39] LABS: ALBUMIN 2.9 GM/DL (3.2-5.2); BILIRUBIN,DIRECT 1.3 MG/DL (0.0-0.2); BILIRUBIN,TOTAL 1.8 MG/DL (0.2-1.0); CALCIUM LEVEL 8.3 MG/DL (8.8-10.2); CREATININE FOR GFR 2.33 MG/DL (0.70-1.30); GLOMERULAR FILTRATION RATE 35.6 (>42); POTASSIUM SERUM 4.6 MEQ/L (3.5-5.1); TOTAL PROTEIN 6.7 GM/DL (6.4-8.2)
[2018-11-07] MEDS: FUROSEMIDE 100 MG/10 ML VIAL (J1940) IV SCH ×4 (05:54→17:25)
[2018-11-07] MEDS: SLF 3 ML SYR IV SCH ×3 (05:54→20:38)
[2018-11-07] MEDS: CARVedilol 6.25 MG TAB PO SCH ×2 (08:22→20:39)
[2018-11-07] MEDS: ALLOPURINOL 100 MG TAB PO SCH (08:22)
[2018-11-07] MEDS: ISOSORBIDE DIN (ISORDIL) 10 MG TAB PO SCH ×3 (08:22→17:38)
[2018-11-07] MEDS: HumaLOG INSULIN (NovoLOG) PER UNIT SC SCH ×4 (08:23→20:37)
[2018-11-07] MEDS: PANTOPRAZOLE 40MG INJ (PROTONIX) (C9113) IV SCH (08:23)
[2018-11-07] MEDS: DIGOXIN 0.25 MG TAB PO SCH ×3 (08:29→17:38)
--- NOTE | 2018-11-07 08:44 | IPN ---
DATE: 11/07/2018 Mr. Vargas is not doing well. First of all his blood pressure has been soft and consequently he has not been receiving diuretics as scheduled due to holding parameters and #2 he developed fairly severe epistaxis that has been going on since about 2:00 a.m., consequently his Lovenox was discontinued, but he continues to bleed even though not as profusely as before. His dyspnea and did not change much. Vital signs: This morning blood pressure 98/76, heart rate has been in 80s and 90s and sometimes low 100s atrial fibrillation. He has several episodes of brief nonsustained VT. He is afebrile. Saturation 94% on room air. Fluid balance yesterday was documented about negative 760. Weight is 138.4. He is alert and oriented appropriate. His jugular venous pulse (JVP) is very high. Lungs: Reveal fair air movement but I do not appreciate any wheezing. There are find occasional crackles not very prominent. Heart exam is very muffled due to his large size but no gallop or murmur is appreciated. Abdomen is obese. He has very prominent edema of lower extremities extending about his knees. LABORATORY: Basic metabolic panel reveals sodium 127, BUN 65, creatinine 2.3 for GFR 36, glucose 305, albumin is 2.9 and CBC hemoglobin 12.2 point, hematocrit 36, platelet count 149,000. ASSESSMENT AND PLAN: Mr. Vargas is a 73 -[place] man who has longstanding history of dilated cardiomyopathy. He has chronic atrial fibrillation and defibrillator in place. He presented after a recent illness with cholangitis. But I believe his dominant problem right now is exacerbated congestive heart failure. His low blood pressure complicates management. He is already on Coreg 6.25 twice a day and I believe it should be continued. I am going to give him just three doses of digoxin 0.25 mg with an attempt to accomplish a little bit better rate control. I gave the order to the nursing staff to give him the morning dose of furosemide even if his blood pressure is relatively low. He is very grossly volume overloaded and we have to accomplish at least some diuresis. As far as the atrial fibrillation is concerned, we will have to hold anticoagulation for a short period of time for the epistaxis to stop. If there are problems, I would suggest to gent ENT involved and hopefully he can have some cauterization to help control bleeding. His condition is certainly guarded at best, even in the short-term. Dr. Rodriguez covers the weekend.
--- NOTE | 2018-11-07 10:28 | IPNPDOC ---
Date Seen The patient was seen on 11/07/18. Progress Note SUBJECTIVE: Patient has been seen and examined this morning. He currently denies any abdominal pain. He denies any fevers, chills, nausea, vomiting, diarrhea, or constipation. He does complain of a nose bleed which started last night. He has remained afebrile without a white count. OBJECTIVE PHYSICAL EXAMINATION: VITAL SIGNS: Please see below. GENERAL: Patient is awake and alert. He is sitting up in bed eating breakfast. He appears in no acute distress HEENT: Atraumatic normocephalic. Eyes are non-icteric. Trachea is midline. Mild epistaxis. Patient has nasal packing present. CARDIOVASCULAR: Regular rate with irregular rhythm. No murmurs noted. No JVD or carotid bruits RESPIRATORY: Clear to auscultation bilaterally. No wheezing, rhonchi or rales. No crackles noted ABDOMINAL:: Obese, soft, nontender to palpation of all four quadrants. Positive bowel sounds in all four quadrants EXTREMITIES: Edema present. Full and equal pulses bilaterally PSYCHOLOGICAL: Mood and affect appear appropriate LABORATORY DATA, IMAGING STUDIES, MICROBIOLOGY: Please see below.. ASSESSMENT AND PLAN: 1. Cholelithiasis -Patient has currently has no complaint of abdominal pain or more specifi martin right upper quadrant abdominal pain. On imaging he has a contracted gallbladder with gallstones present however, no sign of obstruction. He does not have an elevated WBC and LFT's are within normal limits. He does have slightly elevated bilirubin. Altogether, the patient is a poor surgical candidate at best. He may benefit from GI evaluation with removal of his stent. His stones are small and would likely pass on their own. However, given the patients current condition he is a non-operative or poor operative candidate. VS, I&O, 24H, Fishbone Vital Signs/I&O Vital Signs Date Time Temp Pulse Resp B/P (MAP) Pulse Ox O2 Delivery O2 Flow Rate FiO2 11/07/18 08:29 86 11/07/18 08:22 133/89 11/07/18 08:00 97.7 18 98 11/05/18 08:57 Room Air 11/05/18 04:57 2.0 I&O- Last 24 Hours up to 6 AM 11/07/18 06:00 Intake Total 1605 ml Output Total 2250 ml Balance -645 ml Laboratory Data 24H LABS Laboratory Tests 2 11/06/18 10:36: Total Creatine Kinase 112, Creatine Kinase MB 4.0H, Creatine Kinase MB Relative Index 3.93, Troponin I 0.06 11/06/18 11:56: Bedside Glucose (Misc Panel) 400H 11/06/18 16:53: Bedside Glucose (Misc Panel) 437H 11/06/18 20:03: Bedside Glucose (Misc Panel) 415H 11/07/18 04:34: Nucleated Red Blood Cells % (auto) 1.1H, Anion Gap 10, Glomerular Filtration Rate 35.6L, Estimated Mean Plasma Glucose 275H, Hemoglobin A1c 11.2, Calcium Level 8.3L, Aspartate Amino Transf (AST/SGOT) 12, Alanine Aminotransferase (ALT/SGPT) 31, Alkaline Phosphatase 79, Total Bilirubin 1.8H, Direct Bilirubin 1.3H, Total Protein 6.7, Albumin 2.9L, Albumin/Globulin Ratio 0.76L CBC/BMP Laboratory Tests 11/06/18 16:09 11/07/18 04:34 Red Blood Count 4.97, Mean Corpuscular Volume 73.2 L, Mean Corpuscular He moglobin 24.5 L, Mean Corpuscular Hemoglobin Concent 33.5, Red Cell Distribution Width 18.2 H Microbiology Microbiology 11/05/18 Blood Culture - Preliminary, Resulted No Growth after 48 hours. All Specime... 11/05/18 Blood Culture - Preliminary, Resulted No Growth after 48 hours. All Specime... 11/05/18 Urine Culture - Final, Complete Escherichia Coli GME ATTESTATION GME ATTESTATION My faculty preceptor for this patient encounter was physically present during the encounter and was fully available. All aspects of the patient interview, examination, medical decision making process, and medical care plan development were reviewed and approved by the faculty preceptor. The faculty preceptor is aware and concurs with the plan as stated in the body of this note and will attest to such by his/her cosignature. APOLINAR AMAYA DO Nov 07, 2018 10:28
[2018-11-07] MEDS: CEFEPIME HCL 1 GM in D5W MINI-BAG PLUS 50 ML IV SCH (10:34)
[2018-11-07] MEDS ORDERED: SILVER NITRATE APPLICATOR TOP ONE (11:30)
[2018-11-07] MEDS ORDERED: OXYMETAZOLINE NASAL SPRAY (AFRIN) PRN (11:30)
[2018-11-07] MEDS: ceFAZolin SOD 1 GM in D5W MINI-BAG PLUS 50 ML IV SCH (12:07)
[2018-11-07] MEDS ORDERED: SODIUM CHLORIDE NASAL 0.65% SPRAY BTL (OCEAN) PRN (12:30)
--- NOTE | 2018-11-07 14:27 | IPN ---
DATE: 11/07/2018 Blsa has left sided epistaxis since the early part of the morning. Apparently he has had this in the past as well. His urine ended up growing out E. Coli, probable source of his sepsis. His hemoglobin revealed poor control of his diabetes with hemoglobin A1c of 11%. PHYSICAL EXAMINATION: Blood pressure 156/89, pulse 89, respiration 18, 95% Oxygen saturation. GENERAL: He is laying in bed with a soaked washcloth against the left side of his nose. He is alert and conversant in no distress. No shortness of breath. LUNGS: Clear. HEART: Regular. ABDOMEN: Soft and mildly tender in both lower quadrants along the right. EXTREMITIES: Trace peripheral edema. NEUROLOGICAL EXAM: Focal. LABS: White count 8, hemoglobin 12.2, platelets 149, sodium 127, potassium 4.6, BUN 65, creatinine 2.3, glucose 300. IMPRESSION: 1. Left epistaxis. Consultation with ENT- Dr. Yi- occurred this morning. He will see the patient for evaluation and possible cryo or possible packing versus cauterizing. 2. Cholelithiasis. Surgery is on board. They feel he is a poor operative candidate. 3. Severe dilated cardiomyopathy, is on betablocker. We are trying to diurese him. Prognosis is poor. 4. Atrial fibrillation. Anticoagulants on hold due to the epistaxis. Continue Coreg and Digoxin for rate control. He is a high risk of thromboembolism. 5. Sepsis secondary to E.Coli and UTI. Stop his Cefepime change to Ancef for more narrow spectrum coverage. 6. Recent biliary stenting for cholangitis. Dr. Justice was consulted. His thoughts were summarized previously. Chronic kidney disease. Creatinine is stable. Hopefully diuresis will improve this. 7. Diabetes. Blood sugars are very high. I will increase his basal insulin dose. He is also on a sliding scale of insulin.
--- NOTE | 2018-11-07 15:34 | CR ---
DATE OF CONSULTATION: 11/07/2018 REQUESTING PHYSICIAN: Cornelio Nava MD REASON FOR CONSULTATION: Left epistaxis. HISTORY OF PRESENT ILLNESS This is pleasant 73-year-old -[place] gentleman has had multiple medical problems but I was consulted for epistaxis that started somewhere between 2:00 and 4:00 a.m. this morning primarily from the left side. The patient has been controlling it to a certain extent with nasal gauze, but still having some oozing. According to the nurses they did note that he was starting to slowly develop clots. This patient has a complicated medical history of but in summary he came in on November 05, 2018 for failure thrive, was too weak to walk. He has a history of congestive heart failure, ejection fraction of 10%. He has an implantable cardioverter defibrillator placed 2 years ago in [place]. Has been seen by sample box maker at [facility]. He also has stage III chronic kidney disease, type 2 diabetes, morbid obesity, atrial fibrillation, and ventricular tachycardia (V-tach) leading to the implantable cardioverter defibrillator (ICD) placement. He had Klebsiella bacteremia with associated cholangitis in July 2018 which led to an endoscopic retrograde cholangiopancreatography in biliary stent. He does not remember anything starting with this before but he does remember having nosebleed before, but not recently. He has been on Eliquis when he came in. He was also on Lovenox which has been recently stopped. The Eliquis was stopped on his day of admission. PAST MEDICAL HISTORY: As mentioned above. PAST SURGICAL HISTORY ICD in 2015. Left total knee in 2003. Left inguinal hernia in 1996. Recent ERCP. FAMILY HISTORY Father of myocardial infarction 1992. Mother of unknown causes in 1973. He has four brothers, one of cirrhosis, and two MIs. SOCIAL HISTORY The patient is a nonsmoker. Occasional alcohol use. 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 REVIEW OF SYSTEMS Had been previously reviewed by previous physicians and can be reviewed on his hospital notes, but otherwise nothing new to contribute. CURRENT MEDICATIONS: Include: - digoxin - furosemide - cefepime - Zofran - Ecotrin - insulin - isosorbide - Flonase - carvedilol - the Eliquis was stopped 2 days ago - the Lovenox was stopped yesterday PHYSICAL EXAMINATION The patient is in room 3218, bed one. Temperature 97.7, blood pressure 133/89, pulse on room air is 98%, pulse oximetry is 98% on room air. Pinna are within normal limits, external canals show no discrete lesions. Nasal exam shows bleeding after the packing was removed from the left nasal cavity, which was constantly oozing. There also was blood clots that were present in there as well. The right side was unremarkable. After carefully removing the clots and after informed consent was obtained for cauterization of the left side and nasal packing and after time-out was performed, silver nitrate was applied to left nasal septum and eventually this was cauterized and Qtips were used to apply pressure. The blood clot was completely removed from the nasal cavity. Posterior oropharynx was clear. There is no further blood going down the posterior oropharynx. Neck was supple without any masses. The patient had a NasoPore pack placed in the left nasal cavity and was hydrated. At this point he was controlled. There was no further issues with regards to bleeding. CURRENT LAB VALUES: White count is 8.0, hemoglobin is 12.2, hematocrit 36.4, platelet count 149,000. IMPRESSION: Patient with multiple reasons for epistaxis with severe cardiac disease on medications that can certainly aggravate the bleeding. His Eliquis and the Lovenox are likely still in his system, but currently his bleeding has been controlled with the cautery and the packing. Will allow those nasopore to disintegrate, however, if he has further bleeding, he may need to have those potentially reversal of Eliquis, although I think this will be a risky factor given the patient's multiple comorbidities. PLAN: At this point is have him continue with the saline irrigation to the left nasal cavity. We will put him on cool mist face tent to try and prevent any further bleeding. Patient will use saline to keep the NasoPore packing moist, which is an absorbable packing and if he is discharged he will need to followup with us. If there is no bleeding, he does not need to followup this coming week, but the week after. CHAD
[2018-11-07] MEDS: ASPIRIN 81 MG ENTERIC TAB PO SCH (20:39)
[2018-11-07] MEDS ORDERED: LEVEMIR (INSULIN DETEMIR) 1 UNITS/0.01ML SC SCH (21:00)
[2018-11-08] VITALS: BP_SYST 112; BP_SYST 124; BP_DIAS 62; BP_DIAS 71
[2018-11-08] MEDS: ceFAZolin SOD 1 GM in D5W MINI-BAG PLUS 50 ML IV SCH ×2 (00:43→12:39)
[2018-11-08] MEDS: FUROSEMIDE 100 MG/10 ML VIAL (J1940) IV SCH ×4 (00:43→17:21)
[2018-11-08 04:00] VITALS: BP 116/82
[2018-11-08] MEDS: ACETAMINOPHEN 500 MG TAB PO PRN ×2 (04:10→21:03)
[2018-11-08 05:38] LABS: HEMOGLOBIN 11.9 g/dl (13.5-17.5); MEAN CORPUSCULAR HEMOGLOBIN 24.4 pg (27.0-33.0); MEAN CORPUSCULAR HGB CONC 33.1 g/dl (32.0-36.5); MEAN CORPUSCULAR VOLUME 73.8 fl (80.0-96.0); PLATELET COUNT, AUTOMATED 147 10^3/uL (150-450); RED BLOOD COUNT 4.88 10^6/uL (4.30-6.10)
[2018-11-08] MEDS: SLF 3 ML SYR IV SCH ×3 (05:58→21:47)
[2018-11-08 05:59] LABS: ALBUMIN 2.8 GM/DL (3.2-5.2); BILIRUBIN,TOTAL 1.6 MG/DL (0.2-1.0); CALCIUM LEVEL 8.1 MG/DL (8.8-10.2); CREATININE FOR GFR 1.92 MG/DL (0.70-1.30); GLOMERULAR FILTRATION RATE 44.5 (>42); TOTAL PROTEIN 6.5 GM/DL (6.4-8.2)
[2018-11-08 08:00] VITALS: BP 156/86
[2018-11-08] MEDS: ALLOPURINOL 100 MG TAB PO SCH (08:22)
[2018-11-08] MEDS: CARVedilol 6.25 MG TAB PO SCH ×2 (08:25→21:04)
[2018-11-08] MEDS: ISOSORBIDE DIN (ISORDIL) 10 MG TAB PO SCH ×2 (08:25→21:05)
[2018-11-08] MEDS: PANTOPRAZOLE 40MG TAB (PROTONIX) PO SCH (08:25)
[2018-11-08] MEDS: HumaLOG INSULIN (NovoLOG) PER UNIT SC SCH ×4 (08:26→21:46)
--- NOTE | 2018-11-08 11:28 | IPN ---
DATE OF SERVICE: 11/08/2018 Blas required cautery and packing of his left epistaxis, which has successfully stopped his bleeding. He has no more abdominal pain. He has no chest pains. Urosepsis had been fully treated. At this point, we are just waiting for GI to decide what to do about his biliary stent. PHYSICAL EXAMINATION: Afebrile. Vital signs stable. 124/60. HEENT: Shows his left nasal packing with a mist mask present. Lungs clear. Heart: Regular rate and rhythm. Abdomen: Soft, nontender. No masses. No peripheral edema. LABORATORIES: White count 9, hemoglobin 11.9, platelets 147. Sodium 128, potassium 4.0, BUN 30, creatinine 1.9, glucose 217. IMPRESSION: 1. Left epistaxis. Appreciate Dr. Yi's assistance. The patient is packed, and he will need to followup as an outpatient. 2. Sepsis from urinary source. He has Escherichia (E.) coli in his urine. He is on Ancef. I could put him on oral antibiotic at any point now, but I am waiting to see when the biliary stent is going to be removed. 3. Biliary stenting with cholangitis. GI has been consulted. Will touch base today to see when plans are to remove the stent. 4. Cholelithiasis. Poor surgical candidate, per their most recent notes. 5. Diabetes. His basal insulin dose has been increased, and his blood sugars are under better control. He has poor control as an outpatient. Hemoglobin A1c of 11. We will boost his basal dose more today, going from 40 to 50 units detemir insulin.
[2018-11-08 12:00] VITALS: BP 129/83
[2018-11-08] MEDS: **hydrALAZINE** 10 MG TAB PO SCH ×2 (12:39→21:03)
[2018-11-08 16:00] VITALS: BP 152/80
[2018-11-08 20:56] VITALS: BP 120/74
[2018-11-08] MEDS: ASPIRIN 81 MG ENTERIC TAB PO SCH (21:05)
[2018-11-08] MEDS: LEVEMIR (INSULIN DETEMIR) 1 UNITS/0.01ML SC SCH (21:08)
--- NOTE | 2018-11-08 22:10 | IPN ---
DATE: 11/08/2018 Mr. Blas Vargas was seen earlier this morning. He was in supine in bed in no acute distress at reset. He denies any chest pain. He thinks he is feeling better. He has no orthopnea or paroxysmal nocturnal dyspnea (PND), and he denies any palpitations. He had developed some hemoptysis yesterday, and this is being addressed. He was initially admitted on 11/05/2018 with decompensated congestive heart failure secondary to left ventricular systolic dysfunction, acute on chronic. PHYSICAL EXAMINATION: Patient is alert and oriented in no acute distress at rest. His vital signs when I saw him revealed a blood pressure of 129/83 with a pulse of 95, respirations 19, and his maximum temperature was 97.8 degrees Fahrenheit with an oxygen saturation of 97%. He had a negative fluid balance for 2.5 liters on 11/07/2018. His weight yesterday was 138.4 kg, and today it is 134.3 kg. Examination of the head: Atraumatic. Neck is supple without distended jugular. The lungs did not reveal any wheezing or crackles. The heart examination revealed an irregular heartbeat without S3 gallop. The point of maximal impulse (PMI) is displaced inferiorly and laterally. There is no rub. Abdomen is soft, obese, and nontender. Extremities revealed +1 to +2 bilateral pedal edema. Neurological examination grossly is negative for focal deficit. LABORATORY DATA: BMP done today, 11/08/2018, revealed a sodium of 128, potassium 4.0, chloride 89, CO2 of 33, BUN 60, creatinine 1.92, GFR 44.5, and fasting glucose 271 with a calcium of 8.1. Liver enzymes revealed a total bilirubin of 1.6, direct bilirubin 1.0, AST 9, ALT 28, alkaline 87, total protein 6.5, and albumin 2.8. CBC revealed a WBC of 9.0, hemoglobin 11.9, hematocrit 35.0, and platelets 147,000. Telemetry was reviewed and revealed atrial fibrillation, pacemaker activity, and nonsustained ventricular tachycardia (VT). IMPRESSION: 1. Decompensated congestive heart failure secondary to left ventricular systolic dysfunction, acute on chronic. Patient is not at this time a candidate for any angiotensin-converting enzyme (QUINTEN) inhibitor or angiotensin receptor jerel (ARB) or Entresto. He is on a beta jerel as well as diuretics and nitrate. Because his blood pressure was recently low but now normal, I have decreased the long-acting nitrate and started him on hydralazine. He will benefit. He has no underlying coronary artery disease (CAD). Will continue with other medications. He is on big dose of intravenous (IV) furosemide, and he will continue the same, and we will have to monitor closely his BUN and creatinine as well as a serum potassium. We should try to keep him in negative fluid balance for now. We will discuss about the importance of being compliant with his medications and diet, particularly a low-salt diet. He will need surgery in the near future. He does have an automatic implantable cardioverter-defibrillator (AICD) for prevention of sudden cardiac . 2. Status post epistaxis, and this is being addressed by ears, nose, and throat (ENT). 3. Urinary tract infection (UTI) and urosepsis, also being addressed, on antibiotics. 4. History of diabetes mellitus. 5. Chronic kidney disease, and this seems to be stable. 6. Status post hyperkalemia. Upon admission, he was on spironolactone, and this was discontinued. 7. Diabetes mellitus, being addressed. 8. Recent biliary obstruction and biliary stent placement at [facility], and another time he also was diagnosed with cholangitis. He had endoscopic retrograde cholangiopancreatography (ERCP) while being admitted at [facility]. The immediate plan, once his heart failure is under control, is to proceed with cholecystectomy and stent removal. It was a pleasure to participate in the care of Mr. Blas Vargas for his underlying cardiac condition. I will continue to monitor him along with you in the hospital. Please do not hesitate to call if any questions. CHAD
[2018-11-09] VITALS (7 sets, daily range): BP systolic 110–139; BP diastolic 60–87
[2018-11-09] MEDS: ceFAZolin SOD 1 GM in D5W MINI-BAG PLUS 50 ML IV SCH ×2 (00:48→11:52)
[2018-11-09] MEDS: FUROSEMIDE 100 MG/10 ML VIAL (J1940) IV SCH ×4 (00:49→17:34)
[2018-11-09 05:36] LABS: HEMATOCRIT 38.4 % (42.0-52.0); HEMOGLOBIN 12.4 g/dl (13.5-17.5); MEAN CORPUSCULAR HEMOGLOBIN 24.3 pg (27.0-33.0); MEAN CORPUSCULAR HGB CONC 32.3 g/dl (32.0-36.5); MEAN CORPUSCULAR VOLUME 75.1 fl (80.0-96.0); PLATELET COUNT, AUTOMATED 140 10^3/uL (150-450); RED BLOOD COUNT 5.11 10^6/uL (4.30-6.10); WHITE BLOOD COUNT 8.8 10^3/uL (4.0-10.0)
[2018-11-09 06:04] LABS: ALBUMIN 2.8 GM/DL (3.2-5.2); BILIRUBIN,TOTAL 1.6 MG/DL (0.2-1.0); CALCIUM LEVEL 8.1 MG/DL (8.8-10.2); CREATININE FOR GFR 1.76 MG/DL (0.70-1.30); GLOMERULAR FILTRATION RATE 49.2 (>42); POTASSIUM SERUM 3.8 MEQ/L (3.5-5.1); TOTAL PROTEIN 6.3 GM/DL (6.4-8.2)
[2018-11-09] MEDS: SLF 3 ML SYR IV SCH ×3 (06:23→21:36)
[2018-11-09] MEDS: HumaLOG INSULIN (NovoLOG) PER UNIT SC SCH ×4 (08:40→21:33)
[2018-11-09] MEDS: **hydrALAZINE** 10 MG TAB PO SCH ×2 (08:41→21:36)
[2018-11-09] MEDS: ISOSORBIDE DIN (ISORDIL) 10 MG TAB PO SCH ×2 (08:41→21:36)
[2018-11-09] MEDS: ALLOPURINOL 100 MG TAB PO SCH (08:41)
[2018-11-09] MEDS: CARVedilol 6.25 MG TAB PO SCH ×2 (08:41→21:35)
[2018-11-09] MEDS: PANTOPRAZOLE 40MG TAB (PROTONIX) PO SCH (08:41)
--- NOTE | 2018-11-09 14:32 | IPN ---
DATE: 11/09/2018 Mr. Blas Vargas was seen earlier today, he was found sitting in the chair in no acute distress at rest. His saturation is much better and appears to be more alert and awake. He denies any chest pain, palpitations, orthopnea. He said that his pedal edema has improved. There is no report of active bleeding. He has no nausea, vomiting, diarrhea, melena or hematemesis. He was seen yesterday and he was started on a small dose of hydralazine. His oxygen was decreased. On physical examination, patient is alert and oriented, in no acute distress and very pleasant. His most recent vital signs reveal a blood pressure of 110/62, with a pulse of 78, respiration 18 and his maximum temperature was 97.8 degrees Fahrenheit with an oxygen saturation of 96% on 2 liters nasal cannula. Examination of the head: Atraumatic. Neck is supple and no jugular venous distention (JVD) appreciated while sitting up. The lungs do not reveal any wheezing or crackles. The heart examination revealed irregular heart sounds without gallops. The point of maximum impulse (PMI) is displaced inferiorly and laterally. There is no rub. Abdomen is obese and nontender. Extremities reveal +1 bilateral pedal edema. Neural examination is negative for focal deficit. LABS: CBC done today revealed a WBC of 8.2, hemoglobin 12.5, hematocrit 38.4 and platelet count 140,000. BMP revealed a sodium 136, potassium 3.8, chloride 92, CO2 39, BUN 48, creatinine 1.76. GFR 49.2 and fasting glucose 198 with a calcium of 8.1. Liver enzymes reveal a total bilirubin of 1.6, direct bilirubin 1.0, AST 7, ALT 29, alkaline phosphatase 87 and total protein 6.8 with a serum albumin of 2.8. Total protein 6.3, with a serum albumin of 2.8. IMPRESSION: 1. Status post decompensated congestive heart failure, acute on chronic secondary to left ventricular systolic dysfunction. Patient's condition seems to have improved significantly. He is now on long-acting nitrate as well as hydralazine, beta jerel, and diuretics. We will continue same. He is not a candidate for an angiotensin converting enzyme inhibitors (QUINTEN) inhibitor or angiotensin II receptor jerel (ARB) or Entresto at this present time in view of his underlying kidney function. He has had good urinary output and will continue the same. His renal function, however, seems to be improving. He is waiting to have his biliary stent removal procedure done and/or cholecystectomy. Could probably can proceed with the removal of the biliary stent. He seems to be stable enough. That probably can be done by Saturday or Saturday. He has an automatic implantable cardioverter (AICD)/defibrillator for primary prevention of sudden cardiac . 2. History of chronic kidney disease: This seems to be stable and has improved with chronic management. 3. Diabetes mellitus, being addressed. 4. Status post hyperkalemia: He is no longer on the spironolactone. 5. Urinary tract infection and probably urosepsis: This is being addressed on antibiotics. 6. Status post epistaxis: No active bleed noted. 7. Recent biliary obstruction with cholangitis and patient had a biliary stent placement and endoscopic retrograde pyelogram (ERCP) done at [facility]. The immediate plan is to proceed with removal of that biliary stent and/or cholecystectomy. It was a pleasure to participate in the care of Mr. Blas Vargas for his underlying cardiac condition. I will continue to monitor him along with you until he is stable to go home. The case was discussed earlier today with Dr. Nava covering. Dr. Biswas will be seeing him tomorrow 11/10/2018. CHAD
--- NOTE | 2018-11-09 20:47 | IPN ---
DATE: 11/09/2018 Blas says his breathing is "excellent," and that he has been free of dyspnea. We have been aggressively diuresing him and he has taken off almost 8 liters over the last 3 days. His epistaxis has not recurred. No chest pain. PHYSICAL EXAMINATION: 110/62, pulse 82, 96% oxygen saturation on 2 liters. GENERAL APPEARANCE: His left nostril is packed. LUNGS: Decreased breath sounds but clear. HEART: Regular rate and rhythm. 1/6 holosystolic murmur. ABDOMEN: Soft, nontender. No masses. EXTREMITIES: Trace peripheral edema. LABORATORIES: Complete blood count (CBC) unremarkable. Sodium 136, potassium 3.8, BUN 48, creatinine 1.7, glucose 198. IMPRESSION: 1. Left epistaxis, status post packing with no recurrence. 2. Escherichia (E) coli urinary tract infection (UTI). He is on Ancef. We will continue IV antibiotics until he gets biliary stent removed. 3. Dilated cardiomyopathy with severely reduced ejection fraction. He is much better compensated. He has diuresed 8 liters and his renal function gets better by the day. I would continue to diurese him until his renal function starts to turn the other way, in which case will consider him having been at his dry point, we should probably get a "dry BMP" at that point. Cardiology is involved. 4. Biliary stent with cholangitis. Discussed with Dr. Justice. We are waiting for input from surgery. He is talking to Dr. Vázquez tomorrow. I spoke with Dr. Rodriguez about giving a cardiology opinion concerning the patient's ability to tolerate general anesthesia for cholecystectomy. 5. Diabetes. Blood sugar is under better control on augmented dose of insulin.
[2018-11-09] MEDS: LEVEMIR (INSULIN DETEMIR) 1 UNITS/0.01ML SC SCH (21:32)
[2018-11-09] MEDS: ACETAMINOPHEN 500 MG TAB PO PRN (21:35)
[2018-11-09] MEDS: ASPIRIN 81 MG ENTERIC TAB PO SCH (21:36)
[2018-11-10] MEDS: ceFAZolin SOD 1 GM in D5W MINI-BAG PLUS 50 ML IV SCH (00:26)
[2018-11-10] MEDS: FUROSEMIDE 100 MG/10 ML VIAL (J1940) IV SCH ×4 (00:36→16:51)
[2018-11-10 04:00] VITALS: BP 131/66
[2018-11-10 05:55] LABS: HEMATOCRIT 41.4 % (42.0-52.0); HEMOGLOBIN 13.2 g/dl (13.5-17.5); MEAN CORPUSCULAR HEMOGLOBIN 24.8 pg (27.0-33.0); MEAN CORPUSCULAR HGB CONC 31.9 g/dl (32.0-36.5); MEAN CORPUSCULAR VOLUME 77.8 fl (80.0-96.0); PLATELET COUNT, AUTOMATED 146 10^3/uL (150-450); RED BLOOD COUNT 5.32 10^6/uL (4.30-6.10); WHITE BLOOD COUNT 7.1 10^3/uL (4.0-10.0)
[2018-11-10] MEDS: SLF 3 ML SYR IV SCH ×3 (06:00→20:42)
[2018-11-10 06:17] LABS: ALBUMIN 2.6 GM/DL (3.2-5.2); ALT/SGPT 23 U/L (12-78); BILIRUBIN,TOTAL 1.8 MG/DL (0.2-1.0); BLOOD UREA NITROGEN 32 MG/DL (7-18); CALCIUM LEVEL 8.3 MG/DL (8.8-10.2); CARBON DIOXIDE LEVEL 36 MEQ/L (21-32); CHLORIDE LEVEL 94 MEQ/L (98-107); CREATININE FOR GFR 1.45 MG/DL (0.70-1.30); GLOMERULAR FILTRATION RATE > 60.0 (>42); GLUCOSE, FASTING 177 MG/DL (70-100); MAGNESIUM LEVEL 2.5 MG/DL (1.8-2.4); POTASSIUM SERUM 3.6 MEQ/L (3.5-5.1); SODIUM LEVEL 135 MEQ/L (136-145); TOTAL PROTEIN 6.3 GM/DL (6.4-8.2)
[2018-11-10 08:00] VITALS: BP 132/98
[2018-11-10] MEDS: ALLOPURINOL 100 MG TAB PO SCH (08:53)
[2018-11-10] MEDS: PANTOPRAZOLE 40MG TAB (PROTONIX) PO SCH (08:53)
[2018-11-10] MEDS: ISOSORBIDE DIN (ISORDIL) 10 MG TAB PO SCH ×2 (08:53→20:40)
[2018-11-10] MEDS: CARVedilol 6.25 MG TAB PO SCH ×2 (08:54→20:39)
[2018-11-10] MEDS: **hydrALAZINE** 10 MG TAB PO SCH ×2 (08:54→20:39)
[2018-11-10] MEDS: HumaLOG INSULIN (NovoLOG) PER UNIT SC SCH ×4 (08:55→20:23)
--- NOTE | 2018-11-10 10:10 | IPN ---
DATE: 11/10/2018 Mr. Vargas looks much better today than he did on Saturday. Over the weekend, he managed to accomplish significant diuresis. There has been concomitant improvement in renal function. He denies having any epistaxis since Saturday. The patient today tells me he is feeling much better. He denies any dyspnea or chest pain. Vital Signs: Blood pressure 131/66. Heart rate has been 70s and 80s. He is afebrile. Saturation is 92%, on 35% FiO2 overnight. When I saw him, he was on room air. Alert, oriented and appropriate. His jugular venous pulse (JVP) is still quite high. Lungs are clear to auscultation, though with good air movement. Heart exam reveals irregularly irregular rhythm and there is a murmur of MR. No gallop. Abdomen is obese. but soft. There is still 3+ edema. Laboratory-bynum, basic metabolic panel with sodium 135, potassium 3.6, BUN 32, creatinine 1.5, glucose 177, magnesium 2.5, bilirubin 1.8 - which has been approximately stable, and albumin 2.6. CBC: Hemoglobin 13.2, hematocrit 41, platelet count 146,000. ASSESSMENT/PLAN: Mr. Vargas is a 73-year-old man who has chronic atrial fibrillation, chronic nonischemic cardiomyopathy with severe left ventricular systolic dysfunction. He presented with acutely exacerbated systolic heart failure with concomitant acute renal failure. As far as the management of his heart failure is concerned, he is currently responding favorably. Isosorbide and hydralazine were added to his regimen. Because of his renal failure, he was not felt to be a candidate for ARB/QUINTEN inhibitor. As far as the atrial fibrillation is concerned, he is chronically anticoagulated, but the anticoagulation has to be held due to severe epistaxis that fortunately has stopped and I believe we can restart anticoagulation at this point. As far as the rate is concerned, he is reasonably well rate-controlled on Coreg 6.25 mg twice a day. He also has a defibrillator in place. No medication changes from my perspective either.
[2018-11-10] MEDS: cefTRIAXone SOD 1 GM in D5W MINI-BAG PLUS 50 ML IV SCH (10:51)
--- NOTE | 2018-11-10 11:59 | IPN ---
DATE: 11/10/2018 Blas continues to improve as we diurese him from his dilated congestive cardiomyopathy. He has diuresed 10 liters over the last five days. His renal function is improving on a daily basis. His oxygenation is good. He says he is breathing the best he has "in years and years." PHYSICAL EXAMINATION: 132/98, pulse of 82, respiratory rate 17, 96% oxygen saturation. GENERAL APPEARANCE: He still has his left nasal packing in. LUNGS: Clear. HEART: Distant sounds. Regular rate and rhythm. ABDOMEN: Soft, nontender. No masses. He has 1+ peripheral edema. LABS: White count 7.1, hemoglobin 13.2, platelets 146. Sodium 135, potassium 3.6, BUN 32, creatinine is down to 1.45. It is improved everyday that he is diuresed. Bilirubin is 1.8, which is stable. Blood sugar is in the 200 range. IMPRESSION: 1. Left epistaxis. He is status post packing. He is currently on Ancef from his E. coli urinary tract infection. He really should have some better . Will change him to Rocephin that will provide better sinusitis coverage as well as attend to the E. coli UTI. 2. E. coli UTI. He is currently on Ancef. I am going to change his antibiotics to ceftriaxone. That will cover both his E. coli UTI as well as prophylaxis against sinusitis from the left nasal packing. He should stay on the IV antibiotics until his biliary stent gets removed. He has a history of cholangitis. 3. Dilated cardiomyopathy, severely reduced ejection fraction. He has now diuresed over 10 liters in five days. Renal function gets better on a daily basis. I would continue to diuresing him until his creatinine starts to bump. I would then order a "dry BNP." Cardiology is also seeing him. 4. Biliary stent with history of cholangitis. Dr. Justice and I discussed the case yesterday. Waiting for input from surgery, Dr. Vázquez has been his surgeon. I will communicate with him today. Initially they did not feel he was a surgical candidate. Cardiology is supposed to address whether they think he would tolerate general anesthesia for the cholecystectomy. If not, then plans would be to remove the stent and maybe put in a larger caliber stent. The current stent has been in now for over six weeks. 5. Diabetes. Under adequate control on his current regimen. Dr. Gaona will be assuming his care in the morning.
[2018-11-10 12:00] VITALS: BP 132/70
[2018-11-10 16:00] VITALS: BP 131/60
[2018-11-10 20:00] VITALS: BP 114/61
[2018-11-10] MEDS: LEVEMIR (INSULIN DETEMIR) 1 UNITS/0.01ML SC SCH (20:38)
[2018-11-10] MEDS: ASPIRIN 81 MG ENTERIC TAB PO SCH (20:39)
[2018-11-10 23:59] VITALS: BP 116/71
[2018-11-11] MEDS: FUROSEMIDE 100 MG/10 ML VIAL (J1940) IV SCH ×4 (00:42→17:54)
[2018-11-11 03:41] LABS: HEMATOCRIT 40.4 % (42.0-52.0); HEMOGLOBIN 12.9 g/dl (13.5-17.5); MEAN CORPUSCULAR HEMOGLOBIN 24.7 pg (27.0-33.0); MEAN CORPUSCULAR HGB CONC 31.9 g/dl (32.0-36.5); MEAN CORPUSCULAR VOLUME 77.2 fl (80.0-96.0); PLATELET COUNT, AUTOMATED 139 10^3/uL (150-450); RED BLOOD COUNT 5.23 10^6/uL (4.30-6.10); WHITE BLOOD COUNT 6.4 10^3/uL (4.0-10.0)
[2018-11-11 04:00] VITALS: BP 109/67
[2018-11-11 04:05] LABS: ALBUMIN 2.6 GM/DL (3.2-5.2); ALT/SGPT 20 U/L (12-78); BILIRUBIN,DIRECT 0.9 MG/DL (0.0-0.2); BILIRUBIN,TOTAL 1.6 MG/DL (0.2-1.0); BLOOD UREA NITROGEN 27 MG/DL (7-18); CALCIUM LEVEL 8.1 MG/DL (8.8-10.2); CARBON DIOXIDE LEVEL 36 MEQ/L (21-32); CHLORIDE LEVEL 93 MEQ/L (98-107); CREATININE FOR GFR 1.24 MG/DL (0.70-1.30); GLOMERULAR FILTRATION RATE > 60.0 (>42); GLUCOSE, FASTING 205 MG/DL (70-100); MAGNESIUM LEVEL 2.3 MG/DL (1.8-2.4); POTASSIUM SERUM 3.5 MEQ/L (3.5-5.1); SODIUM LEVEL 135 MEQ/L (136-145); TOTAL PROTEIN 6.2 GM/DL (6.4-8.2)
[2018-11-11] MEDS: SLF 3 ML SYR IV SCH ×3 (05:11→21:09)
[2018-11-11 08:00] VITALS: BP 124/67
[2018-11-11] MEDS: PANTOPRAZOLE 40MG TAB (PROTONIX) PO SCH (08:30)
[2018-11-11] MEDS: ISOSORBIDE DIN (ISORDIL) 10 MG TAB PO SCH ×2 (08:30→21:07)
[2018-11-11] MEDS: CARVedilol 6.25 MG TAB PO SCH ×2 (08:30→21:07)
[2018-11-11] MEDS: ALLOPURINOL 100 MG TAB PO SCH (08:30)
[2018-11-11] MEDS: **hydrALAZINE** 10 MG TAB PO SCH ×2 (08:30→21:06)
[2018-11-11] MEDS: HumaLOG INSULIN (NovoLOG) PER UNIT SC SCH ×4 (08:31→21:08)
--- NOTE | 2018-11-11 09:49 | IPN ---
DATE: 11/10/2018 Mr. Vargas has significantly improved over the past several days with aggressive diuresis. He is much less short of breath and feels 100% better. I have reviewed the cardiology notes from a Dr. Rodriguez and Dr. Biswas who indicate similar opinions. At this point, we will have to make a decision on whether we simply pull his biliary stent or whether we exchange it for a new one. All of this will depend on if he can be cleared from a cardiac standpoint to undergo general anesthesia and surgical opinion on whether or not we are going to do a cholecystectomy on this patient before he can get discharged. VITAL SIGNS: Temperature 97.9, pulse is 69 irregularly irregular, respiratory rate is 17. He is on room air at this time. Head, eyes, ears, nose and throat are grossly without abnormality. He has no oral thrush. No scleral icterus. Neck is supple. I see some mild jugular venous distention, perhaps 2-3 cm above his clavicle. Heart is irregularly irregular, S1-S2. No murmurs or gallops are appreciated. Abdomen is protuberant, soft and nontender. Good bowel sounds. No masses felt. I cannot appreciate his liver or spleen due to body habitus. Extremities 1-2+ pedal edema. LABS: WBC 7.1, hemoglobin 13.2, platelet count is 146, BUN 32, creatinine is 1.45, total bilirubin 1.8, AST, ALT, alkaline phosphatase are normal. Albumin is 2.6. ASSESSMENT: 1. Common bile duct stent is in place to protect for future recurrence of common bile duct stones. 2. History of cholangitis. 3. History of congestive hepatopathy improving. 4. Congestive heart failure. 5. Gallstones. DISCUSSION: His biliary stent, while it is functioning, it is in need for either removal or exchange. From my side, I will try to get him cleared for ERCP under general anesthesia. If he cannot be cleared for general anesthesia, then hopefully can get him at least cleared for MAC to simply pull his stent by EGD. I will also have to discuss with surgery about the timing of his cholecystectomy as this will make a difference in what we need to do with his ERCP. i.e. If surgery is willing to take his gallbladder out on this admission, I will simply pull the stent and sweep/clear the duct. If surgery is unable to remove his gallbladder, then I will replace the stent with a large-bore stent that is less likely to undergo complications in the future. CHAD
[2018-11-11] MEDS: cefTRIAXone SOD 1 GM in D5W MINI-BAG PLUS 50 ML IV SCH (10:19)
[2018-11-11 12:00] VITALS: BP 117/72
[2018-11-11] MEDS ORDERED: APIXABAN 5 MG TAB (ELIQUIS) PO SCH (14:00)
--- NOTE | 2018-11-11 14:51 | IPN ---
DATE: 11/11/2018 SUBJECTIVE: This morning the patient tells me that he is feeling great. He denies shortness of breath, palpitations. He denies any specific complaints at this time. OBJECTIVE: VITAL SIGNS: Temperature 98.3, pulse 73, respiratory rate 19, blood pressure 124/67, oxygen saturation 94% on room air. GENERAL: He is a very pleasant elderly obese male sitting in a chair. He does not appear to be in any acute distress. He is awake, alert and oriented time three. He is speaking complete sentences. HEENT: He has a dressing below his naris which is clean, dry and intact. No evidence of active bleeding. Moist mucous membranes. Mild elevation in his CVP but difficult to assess secondary to body habitus. CARDIOVASCULAR: S1, S2. He does not appear to be tachycardiac at this time. RESPIRATORY EXAM: Actually quite clear. ABDOMINAL EXAM: Obese. EXTREMITIES: He still has significant volume bilaterally. LABORATORY STUDIES: WBC 6.4, hemoglobin 12.9, platelet count 139. Chemistry panel: Sodium 135, potassium 3.5, chloride 93, bicarbonate 36, BUN 27, creatinine 1.2, bilirubin remains elevated at 1.6 with elevated direct bilirubin of 0.9, otherwise liver function test is fairly unremarkable. No new imaging. ASSESSMENT AND PLAN: This is a 73-year-old man with chronic atrial fibrillation and chronic severe non-ischemic congestive heart failure who presented with decompensated heart failure. PROBLEMS: 1. Decompensated heart failure. Cardiology's help is greatly appreciated. He is unable to tolerate an QUINTEN or an ARB but his low ejection fraction as such he has been ion isosorbide and hydralazine. He continues with aggressive diuresis and progressive improvement in his status with Lasix. He is ordered for 120 mg IV every 6 hours but is receiving it closer to daily. He is also on carvedilol. He may benefit from spironolactone we will defer to cardiology. 2. Atrial fibrillation. Anticoagulation was held secondary to epistaxis which appears to have resolved. I did touch base with ENT today and his dressing will auto dissolve and that he just needs to keep his naris moist with saline spray. He is rate controlled with Coreg. I agree with Dr. Biswas with giving a trial of resuming his anticoagulation. Eliquis which I will resume. 3. Biliary stent. Patient has a history of cholangitis. He is currently being seen by gastroenterology whose help is greatly appreciated as well as general surgery who has not seen him in quite some time. Gastroenterology is working with general surgery in order to determine the best time for potential removal of his gallbladder versus replacement of his current stent with a larger bore stent. We will defer to gastroenterology and general surgery regarding management of this. 4. Acute kidney injury, does appear to be improving with diuresis. 5. E.Coli urinary tract infection. He is on Ceftriaxone. He has had what appears to be at least 5 days of antibiotics. He is not having any symptoms currently. I suspect prior to his discharge these will be able to be discontinued. 6. Diabetes. Seems to be well controlled. 7. Gastroesophageal reflux disease. He was continued on Protonix. 8. DVT prophylaxis. We are restarting Eliquis. DISPOSITION: Pending improvement of volume status and plan of care regarding his biliary stent.
[2018-11-11 16:00] VITALS: BP 116/69
[2018-11-11 20:00] VITALS: BP 118/68
[2018-11-11] MEDS ORDERED: POTASSIUM CHLORIDE 10 MEQ SR TABLET PO ONE (20:00)
[2018-11-11] MEDS: ASPIRIN 81 MG ENTERIC TAB PO SCH (21:06)
[2018-11-11] MEDS: LEVEMIR (INSULIN DETEMIR) 1 UNITS/0.01ML SC SCH (21:07)
[2018-11-12] VITALS (7 sets, daily range): BP systolic 98–127; BP diastolic 60–94
[2018-11-12] MEDS: FUROSEMIDE 100 MG/10 ML VIAL (J1940) IV SCH ×2 (00:44→05:34)
[2018-11-12] MEDS: SLF 3 ML SYR IV SCH ×3 (05:35→21:17)
[2018-11-12 06:11] LABS: HEMATOCRIT 41.6 % (42.0-52.0); HEMOGLOBIN 13.1 g/dl (13.5-17.5); MEAN CORPUSCULAR HEMOGLOBIN 24.4 pg (27.0-33.0); MEAN CORPUSCULAR HGB CONC 31.5 g/dl (32.0-36.5); MEAN CORPUSCULAR VOLUME 77.5 fl (80.0-96.0); PLATELET COUNT, AUTOMATED 160 10^3/uL (150-450); RED BLOOD COUNT 5.37 10^6/uL (4.30-6.10); WHITE BLOOD COUNT 6.2 10^3/uL (4.0-10.0)
[2018-11-12 06:31] LABS: BLOOD UREA NITROGEN 23 MG/DL (7-18); CALCIUM LEVEL 8.3 MG/DL (8.8-10.2); CARBON DIOXIDE LEVEL 35 MEQ/L (21-32); CHLORIDE LEVEL 95 MEQ/L (98-107); CREATININE FOR GFR 1.17 MG/DL (0.70-1.30); GLOMERULAR FILTRATION RATE > 60.0 (>42); GLUCOSE, FASTING 153 MG/DL (70-100); POTASSIUM SERUM 3.7 MEQ/L (3.5-5.1); SODIUM LEVEL 136 MEQ/L (136-145)
[2018-11-12] MEDS ORDERED: POTASSIUM CHLORIDE 10 MEQ SR TABLET PO ONE (07:45)
--- NOTE | 2018-11-12 08:05 | IPN ---
DATE: 11/12/2018 Mr. Vargas continues to improve every day. He continues to have consistently very prominently negative fluid balance. Yesterday he was negative about 2900 mL, but his weight is down only modestly at 127.5 kg which is overall approximately 12 kg weight loss since admission. He already has negative balance over 2 liters today. He continues to improve as far as how he feels from perspective of dyspnea and his peripheral edema is also subsiding. He denies any chest discomfort. Unfortunately he continues to have frequent runs of nonsustained ventricular tachycardia. PHYSICAL EXAMINATION: Vital signs: This morning were documented, his blood pressure 112/77, heart rate has been mostly 80s. He is afebrile. Saturation 97% on room air when I saw him. He is alert and oriented appropriate. His jugular venous pulse (JVP) is still high about 3 or 4 cm, but much better than a few days ago. Lungs are clear to auscultation with good air movement. Heart exam reveals irregular rhythm. I do not appreciate any gallop. There is faint murmur at the apex. Abdomen is still somewhat distended but I do not appreciate any convincing evidence for ascites by physical examination. He still about 2+ edema to his knees. Neurologically he is intact. LABORATORY DATA: Basic metabolic panel reveals sodium 136, potassium 3.7, BUN 23, creatinine 1.17 for a GFR over 60 and glucose 158. CBC - hemoglobin 30.1, hematocrit 41.6 and platelet count 160,000. ASSESSMENT/PLAN: Mr. Vargas is a 73-year-old man who has severe nonischemic cardiomyopathy with severe left ventricular systolic dysfunction and who presented with acute on chronic systolic congestive heart failure further complicated by development of acute renal failure. He responded favorably to administration of diuretics and he is getting close to euvolemic state even though I do expect that he will need to lose at least additional five or more kilograms. As far as the management of heart failure is concerned, I am going to make few adjustments. His initial dose of Lasix was ordered extremely high because his GFR was low, but now when the renal function recovered we can reduce the dose and I am going to cut it down to 40 mg twice a day. I am going to add spironolactone, I believe that with improved renal function he should tolerate this medication and it is certainly making a big difference in prognostic assessment. I am also going to give him a single dose of supplemental potassium this morning, his potassium tends to run on lower range, which is not favorable and probably contributes to his runs of nonsustained ventricular tachycardia. He is currently on combination of isosorbide and hydralazine both in small doses. He is not receiving QUINTEN inhibitors, ARBs or Entresto because he presented with severe renal dysfunction. I do not want to make too many changes in the same time, but I am hoping that if everything goes well that we can start him on probably QUINTEN inhibitor tomorrow in a very small dose and if he should be well tolerated then we can later advance him and try to start him on Entresto. The second issue is that of atrial fibrillation. It has been a chronic condition. His rate is reasonably well-controlled even though he is in 80s and 90s. I am going to advance the dose of carvedilol to 12.5 mg twice a day hoping that we will accomplish a better control of his nonsustained VT. He has been chronically anticoagulated with Eliquis but because he will need biliary intervention I stopped the medication yesterday and I will start him on Lovenox which should be continued until he is ready to pursue with ERCP. As a additional problem he has a biliary stent. I spoke with Dr. Justice and he feels confident that the stent will have to be exchanged because it is relatively small in size and if not done it is just a matter of time before he will occlude it. There was hope that he also can undergo cholecystectomy. At this point my preference would be to avoid cholecystectomy unless absolutely necessary, but it is possible that if we can accomplish even better compensation that cholecystectomy will be feasible. I do not believe he is ready to proceed with surgery, he is still quite grossly volume overloaded but I am hoping that it can be accomplished by the end of the week and if not so then early next week. I will continue following the patient with you. CHAD
[2018-11-12] MEDS: ACETAMINOPHEN 500 MG TAB PO PRN ×2 (08:15→08:45)
[2018-11-12] MEDS: SPIRONOLACTONE 12.5MG PER 1/2 TABLET PO SCH (08:15)
[2018-11-12] MEDS: ALLOPURINOL 100 MG TAB PO SCH (08:15)
[2018-11-12] MEDS: ISOSORBIDE DIN (ISORDIL) 10 MG TAB PO SCH ×2 (08:16→21:14)
[2018-11-12] MEDS: CARVedilol 12.5 MG TAB PO SCH ×2 (08:16→21:14)
[2018-11-12] MEDS: PANTOPRAZOLE 40MG TAB (PROTONIX) PO SCH (08:16)
[2018-11-12] MEDS: **hydrALAZINE** 10 MG TAB PO SCH ×2 (08:16→21:16)
[2018-11-12] MEDS: HumaLOG INSULIN (NovoLOG) PER UNIT SC SCH ×4 (08:17→21:17)
[2018-11-12] MEDS: cefTRIAXone SOD 1 GM in D5W MINI-BAG PLUS 50 ML IV SCH (10:57)
[2018-11-12] MEDS: FUROSEMIDE 40 MG/4 ML VIAL (J1940) IV SCH (11:53)
[2018-11-12] MEDS: LEVEMIR (INSULIN DETEMIR) 1 UNITS/0.01ML SC SCH (21:16)
[2018-11-12] MEDS: ENOXAPARIN 120 MG/0.8 ML SYR (J1650) SC SCH (21:17)
--- NOTE | 2018-11-12 22:01 | IPN ---
DATE: 11/12/2018 SUBJECTIVE: The patient tells me that he is feeling well today. He has no complaints OBJECTIVE: VITAL SIGNS: Temperature 98, pulse 71, respiratory rate 18, oxygen saturation 98% on room air. GENERAL: He is a very pleasant, obese man, sitting up in bed watching television, does not appear to be in any acute distress. HEENT: Cranial nerves II-XII are grossly intact. No evidence of epistaxis. Moist mucous membranes. No elevation of his central venous pressure (CVP). CARDIOVASCULAR EXAM: S1, S2, regular. RESPIRATORY EXAM: Quite clear. ABDOMINAL EXAM: Grossly obese. EXTREMITIES: There is 2+ edema bilaterally. LABORATORY STUDIES: WBC 6.2, hemoglobin 13.1, platelet count 160. Chemistry panel: Sodium 136, potassium 3.7, chloride 95, bicarbonate 35, BUN 23, creatinine 1.1. No new microbiology or imaging. ASSESSMENT AND PLAN: This is a 73-year-old with decompensated severe systolic congestive heart failure 1. Decompensated systolic congestive heart failure he is improving with diuresis at this time cardiology general surgery and gastroenterology help is greatly appreciated he still has quite a ways to go before he reaches euvolemic anemia 2. History of cholangitis. The patient has a biliary stent in place. There is a current ongoing discussion with cardiology and gastroenterology of when the patient will be optimized and this can be scheduled. I will defer to their judgments. For the time being his anticoagulation is Lovenox subcutaneously 3. Acute kidney injury. Does appear to be improving with diuresis. 4. Escherichia (E) coli urinary tract infection. He is continued on ceftriaxone, today is day #6. 5. Diabetes. Finger sticks are well controlled. 6. Gastroesophageal reflux disease. He is on Protonix. 7. Deep venous thrombosis (DVT) prophylaxis. He is on therapeutic Lovenox. DISPOSITION: Pending optimization of volume status and biliary stent exchange. [facility]
[2018-11-13] VITALS (8 sets, daily range): BP systolic 94–115; BP diastolic 56–74
[2018-11-13] MEDS: FUROSEMIDE 40 MG/4 ML VIAL (J1940) IV SCH ×2 (01:16→12:45)
[2018-11-13] MEDS: SLF 3 ML SYR IV SCH ×3 (05:35→21:26)
[2018-11-13 06:02] LABS: HEMATOCRIT 39.3 % (42.0-52.0); HEMOGLOBIN 12.6 g/dl (13.5-17.5); MEAN CORPUSCULAR HGB CONC 32.1 g/dl (32.0-36.5); PLATELET COUNT, AUTOMATED 165 10^3/uL (150-450); RED BLOOD COUNT 5.24 10^6/uL (4.30-6.10); WHITE BLOOD COUNT 5.4 10^3/uL (4.0-10.0)
[2018-11-13 06:26] LABS: BLOOD UREA NITROGEN 25 MG/DL (7-18); CALCIUM LEVEL 8.5 MG/DL (8.8-10.2); CARBON DIOXIDE LEVEL 33 MEQ/L (21-32); CHLORIDE LEVEL 97 MEQ/L (98-107); CREATININE FOR GFR 1.16 MG/DL (0.70-1.30); GLOMERULAR FILTRATION RATE > 60.0 (>42); GLUCOSE, FASTING 132 MG/DL (70-100); MAGNESIUM LEVEL 2.1 MG/DL (1.8-2.4); POTASSIUM SERUM 3.8 MEQ/L (3.5-5.1); SODIUM LEVEL 136 MEQ/L (136-145)
--- NOTE | 2018-11-13 08:02 | IPN ---
DATE: 11/13/2018 Mr. Vargas is feeling relatively well. He was able to sleep without paroxysmal nocturnal dyspnea (PND). He was able to ambulate around the room without much dyspnea. Unfortunately on telemetry monitoring he continues to have runs of nonsustained ventricular tachycardia. The longest was 14 beats. No extreme bradycardia was noted. Denies any chest discomfort. Vital signs: Blood pressure 113/60, heart rate on average about 70s, he has atrial fibrillation. He is afebrile. Saturation 96%. He was on oxygen 8 liters per minute overnight, but when I see him he is actually on room air. His fluid balance yesterday was documented as negative 2 liters. He has not been weighed this morning yet, so the weight has not been documented. He is alert and oriented and appropriate. His JVP is about 4 cm above clavicle. Lungs are clear to auscultation with good air movement. Heart exam reveals irregular rhythm. There is a murmur at the apex that is fairly faint, systolic in nature. I do not appreciate any rub or gallop. Abdomen is still somewhat distended but soft. No shifting dullness is appreciated. He still has about 1-2+ edema to about mid shins, improving every day. Neurologically intact. LABORATORY: Basic metabolic panel sodium 136, potassium 3.8, BUN 25, creatinine 1.2 for GFR more than 60 and glucose 132, magnesium is 2.1 ASSESSMENT/PLAN: Mr. Vargas is a 73-year-old man who has nonischemic cardiomyopathy and severe left ventricular systolic dysfunction. He presented principally with exacerbated systolic congestive heart failure in combination with acute renal failure. He continues to be diuresed. I cut down on the dose of diuretics yesterday because he is having a lot of nonsustained VT, which often is aggravated by sudden changes in fluid balance and electrolytes brought on by vigorous diuresis. I am slowly changing his medications. Yesterday I introduced low-dose spironolactone, which seems to be well tolerated and did not cause any detriment to his renal function. Today I will discontinue his isosorbide and hydralazine and will give him low dose ARB. I am choosing ARB because I am hoping that if well tolerated will be able to transition him to Entresto. His hemodynamic compensation is improving and at this point I believe that he will be able to proceed with ERCP. I am going to let Dr. Justice know that if desired he can proceed tomorrow unless something unexpected happens over the weekend he should definitely be able to proceed next week. I switched anticoagulation from Eliquis to Lovenox so we have more flexibility.
[2018-11-13] MEDS ORDERED: VALSARTAN 80 MG TAB (DIOVAN) PO SCH (09:00)
[2018-11-13] MEDS: ENOXAPARIN 120 MG/0.8 ML SYR (J1650) SC SCH ×2 (09:35→21:25)
[2018-11-13] MEDS: HumaLOG INSULIN (NovoLOG) PER UNIT SC SCH ×4 (09:37→21:00)
[2018-11-13] MEDS: SPIRONOLACTONE 12.5MG PER 1/2 TABLET PO SCH (09:37)
[2018-11-13] MEDS: ALLOPURINOL 100 MG TAB PO SCH (09:38)
[2018-11-13] MEDS: PANTOPRAZOLE 40MG TAB (PROTONIX) PO SCH (09:38)
[2018-11-13] MEDS: CARVedilol 12.5 MG TAB PO SCH ×2 (09:38→21:26)
[2018-11-13] MEDS: cefTRIAXone SOD 1 GM in D5W MINI-BAG PLUS 50 ML IV SCH (09:39)
--- NOTE | 2018-11-13 14:20 | IPNPDOC ---
Text Note Date of Service The patient was seen on 11/13/18. NOTE SUBJECTIVE: Patient was examined at bed side. He had no acute complains. He was evaluated by cardiology this AM and his medication was adjusted. He denied chest pain, denied breathing difficulty, denies shortness of breath OBJECTIVE: VITAL SIGNS: See below GENERAL:Pleasant cayla male, no acute distress. Able to speak in full sentences HEENT: Head is atraumatic, oral mucosa is moist, neck is supple, no thyromegaly Moist mucous membranes., No JVD CARDIOVASCULAR EXAM: S1, S2, regular., No murmurs RESPIRATORY EXAM: Clear to auscultate ABDOMINAL EXAM: Obese abdomen, soft, nontender, nondistended EXTREMITIES: There is 2+ edema bilaterally. Cold extremity, pulses detected LABORATORY STUDIES: See below ASSESSMENT AND PLAN: This is a 73-year-old -Citizen Of [place] male admitted for weakness, lethargy, secondary to urosepsis. Patient also has a past medical history of CHF with ejection fraction of 10%. Cardiology has been consulted. GI has also been consulted due to patient's past medical history of cholangitis #Urosepsis, secondary to E. coli UTI -WBC has normalized, lactic acid has also normalized, patient has an adequate urinary output, no dysuria, or discoloration - IV ceftriaxone, discontinue tomorrow. For a total of 7 days of therapy - Continue to monitor #CHF -He has an implantablecardioverter-defibrillator (ICD) placed 2 years ago in [facility]. -Echo 11/05/18: Dilated severely globally hypokinetic left ventricle with overall estimated LVEF 10-15%. -Cardiology, Dr. Biswas consulted. Cardiology is currently managing his medication. Patient was introduced to low-dose spironolactone yesterday, this a.m. his isosorbide and hydralazine was discontinued and started on Valsatan at low dose at 80 mg. with the plan to transition him to Entresto -Patient is hemodynamically stable, he is euvolemic # History of cholangitis. -biliary stent in place, - GI has been consulted, there was discussion about medically optimizing patient prior to surgical intervention, in the form of stent exchange. Patient at this point has been optimized for the surgical intervention, Dr. Biswas has diccusesed this with Dr. Trevino, who plans surgical intervention tomorrow # Acute kidney injury. -Improving BUN and creatinine # Diabetes. Finger sticks are well controlled. # Gastroesophageal reflux disease. He is on Protonix. # Deep venous thrombosis (DVT) prophylaxis. He is on therapeutic Lovenox. DISPOSITION: Pending biliary stent exchange. VS,Fishbone, I+O VS, Fishbone, I+O Laboratory Tests 11/13/18 05:33 Red Blood Count 5.24, Mean Corpuscular Volume 75.0 L, Mean Corpuscular Hemoglobin 24.0 L, Mean Corpuscular Hemoglobin Concent 32.1, Red Cell Distribution Width 19.9 H, Calcium Level 8.5 L Vital Signs Date Time Temp Pulse Resp B/P (MAP) Pulse Ox O2 Delivery O2 Flow Rate FiO2 11/13/18 12:30 101/58 (72) 11/13/18 11:57 97.4 67 20 95 11/13/18 00:00 8.0 11/09/18 20:00 35 I&O- Last 24 Hours up to 6 AM0 11/13/18 06:00 Intake Total 1750 ml Output Total 1975 ml Balance -225 ml GME ATTESTATION GME ATTESTATION My faculty preceptor for this patient encounter was physically present during the encounter and was fully available. All aspects of the patient interview, examination, medical decision making process, and medical care plan development were reviewed and approved by the faculty preceptor. The faculty preceptor is aware and concurs with the plan as stated in the body of this note and will attest to such by his/her cosignature. HANK LOTT DO Nov 13, 2018 13:23
[2018-11-13] MEDS: LEVEMIR (INSULIN DETEMIR) 1 UNITS/0.01ML SC SCH (21:26)
[2018-11-14] VITALS: BP 109/72
[2018-11-14] MEDS: FUROSEMIDE 40 MG/4 ML VIAL (J1940) IV SCH ×2 (01:05→12:41)
[2018-11-14] MEDS: ACETAMINOPHEN 500 MG TAB PO PRN ×3 (01:16→22:26)
[2018-11-14 04:00] VITALS: BP 107/56
[2018-11-14 05:41] LABS: HEMATOCRIT 38.8 % (42.0-52.0); HEMOGLOBIN 12.7 g/dl (13.5-17.5); MEAN CORPUSCULAR HEMOGLOBIN 24.6 pg (27.0-33.0); MEAN CORPUSCULAR HGB CONC 32.7 g/dl (32.0-36.5); MEAN CORPUSCULAR VOLUME 75.2 fl (80.0-96.0); PLATELET COUNT, AUTOMATED 183 10^3/uL (150-450); RED BLOOD COUNT 5.16 10^6/uL (4.30-6.10); WHITE BLOOD COUNT 5.7 10^3/uL (4.0-10.0)
[2018-11-14] MEDS: SLF 3 ML SYR IV SCH ×3 (06:00→21:04)
[2018-11-14 06:09] LABS: BLOOD UREA NITROGEN 21 MG/DL (7-18); CALCIUM LEVEL 8.3 MG/DL (8.8-10.2); CARBON DIOXIDE LEVEL 33 MEQ/L (21-32); CHLORIDE LEVEL 97 MEQ/L (98-107); CREATININE FOR GFR 1.15 MG/DL (0.70-1.30); GLOMERULAR FILTRATION RATE > 60.0 (>42); GLUCOSE, FASTING 145 MG/DL (70-100); MAGNESIUM LEVEL 2.2 MG/DL (1.8-2.4); SODIUM LEVEL 134 MEQ/L (136-145)
[2018-11-14 08:00] VITALS: BP 107/64
--- NOTE | 2018-11-14 08:19 | IPN ---
DATE: 11/14/2018 Mr. Vargas continues to improve. He tells me that again he feels a little stronger and better overall since yesterday. Has not had any unusual clinical events, but continues to have nonsustained ventricular tachycardia; last night little less than the night before. Vital signs: Blood pressure 107/56, heart rate has been from 60s to 70s. He is afebrile. Saturation 96%. Fluid balance yesterday was documented about negative 400, but his weight has not been documented yet this morning. He is alert and oriented appropriate. His jugular venous pulse (JVP) is only minimally elevated, maybe 2 cm above clavicle. Lungs are clear to auscultation with good air movement. Heart exam reveals irregular rhythm and there is a murmur at the apex not more than 1 or 2 out of 6. I do not appreciate gallop. Do not appreciate rub. Abdomen is obese but soft. There is still about 1 to 2+ edema to mid shins. Again looks a little better today than yesterday. LABORATORY: Basic metabolic panel; Sodium 134, potassium 4.0, BUN 21, creatinine 1.2 and glucose 145. CBC: Hemoglobin 12.7, hematocrit 38, platelet count 183,000 ASSESSMENT/PLAN: Mr. Vargas is a 73-year-old -[place] man who has longstanding history of dilated cardiomyopathy with severe left ventricular systolic dysfunction. He presented with acutely exacerbated systolic heart failure with concomitant and acute renal failure. With vasodilator therapy and diuresis he continues to improve. He is already on several guideline recommended therapies. Today, I am going to switch him from valsartan to Entresto as the final step in optimizing his medical management. I will leave the remaining medications unchanged. Hopefully, he will tolerate this exchanged and will continue to improve. It is my expectation that he will be ready for endoscopic retrograde cholangiopancreatography (ERCP) by early next week. Worse case scenario, I think it can be done even today but I think it is probably better if we wait over the weekend.
[2018-11-14] MEDS: ENTRESTO 24-26MG TABLET (SACUBITRIL/VALSARTAN) PO SCH ×2 (08:35→20:57)
[2018-11-14] MEDS: ENOXAPARIN 120 MG/0.8 ML SYR (J1650) SC SCH ×2 (08:35→20:57)
[2018-11-14] MEDS: HumaLOG INSULIN (NovoLOG) PER UNIT SC SCH ×4 (08:35→20:56)
[2018-11-14] MEDS: SPIRONOLACTONE 12.5MG PER 1/2 TABLET PO SCH (08:36)
[2018-11-14] MEDS: ALLOPURINOL 100 MG TAB PO SCH (08:36)
[2018-11-14] MEDS: PANTOPRAZOLE 40MG TAB (PROTONIX) PO SCH (08:36)
[2018-11-14] MEDS: CARVedilol 12.5 MG TAB PO SCH ×2 (08:36→20:57)
[2018-11-14] MEDS: cefTRIAXone SOD 1 GM in D5W MINI-BAG PLUS 50 ML IV SCH (10:18)
--- NOTE | 2018-11-14 11:12 | IPNPDOC ---
Text Note Date of Service The patient was seen on 11/14/18. NOTE SUBJECTIVE: Patient was examined at bed side. He had not acute complaints. No chest pain, no breath difficulties OBJECTIVE: VITAL SIGNS: See below GENERAL:Pleasant cayla male, resting in bed HEENT: No JVD, head is atraumatic CARDIOVASCULAR EXAM: S1, S2, regular and normal, No murmurs RESPIRATORY EXAM: Clear to auscultate ABDOMINAL EXAM: Obese abdomen, soft EXTREMITIES: There is 2+ edema bilaterally. Cold extremity, pulses detected, improving edema LABORATORY STUDIES: See below ASSESSMENT AND PLAN: This is a 73-year-old -[place] Citizen male admitted for weakness, lethargy, secondary to urosepsis. Patient also has a past medical history of CHF with ejection fraction of 10%. Cardiology has been consulted. GI has also been consulted due to patient's past medical history of cholangitis #Urosepsis, secondary to E. coli UTI -WBC has normalized, lactic acid has also normalized, patient has an adequate urinary output, no dysuria, or discoloration - Has complete IV ceftriaxon (7 days in total) #CHF -He has an implantablecardioverter-defibrillator (ICD) placed 2 years ago in [place]. -Echo 11/05/18: Dilated severely globally hypokinetic left ventricle with overall estimated LVEF 10-15%. -Cardiology, Dr. Biswas consulted. Cardiology is currently managing his medication. Started entresto today -Patient is hemodynamically stable, he is euvolemic -Will continue to diuresis as needed # History of cholangitis. -biliary stent in place - GI has been consulted - Pt is medically opitimized for ERCP, it is scheduled for next Saturday # Acute kidney injury. -Improving - Continue to monitor # Diabetes. Finger sticks are well controlled. # Gastroesophageal reflux disease. He is on Protonix. # Deep venous thrombosis (DVT) prophylaxis. He is on therapeutic Lovenox. DISPOSITION: Pending ERCP on saturday [place], I+O [place], I+O Laboratory Tests 11/14/18 05:26 Red Blood Count 5.16, Mean Corpuscular Volume 75.2 L, Mean Corpuscular Hemoglobin 24.6 L, Mean Corpuscular Hemoglobin Concent 32.7, Red Cell Distribution Width 20.2 H, Calcium Level 8.3 L Vital Signs Date Time Temp Pulse Resp B/P (MAP) Pulse Ox O2 Delivery O2 Flow Rate FiO2 11/14/18 08:36 72 107/64 11/14/18 08:00 97.7 16 93 11/13/18 00:00 8.0 11/09/18 20:00 35 I&O- Last 24 Hours up to 6 AM 11/14/18 06:00 Intake Total 1370 ml Output Total 1425 ml Balance -55 ml GME ATTESTATION GME ATTESTATION My faculty preceptor for this patient encounter was physically present during the encounter and was fully available. All aspects of the patient interview, examination, medical decision making process, and medical care plan development were reviewed and approved by the faculty preceptor. The faculty preceptor is aware and concurs with the plan as stated in the body of this note and will attest to such by his/her cosignature. HANK LOTT DO Nov 14, 2018 11:12
[2018-11-14 12:21] VITALS: BP 101/62
[2018-11-14 16:00] VITALS: BP 101/62
[2018-11-14 20:00] VITALS: BP 120/73
[2018-11-14] MEDS: LEVEMIR (INSULIN DETEMIR) 1 UNITS/0.01ML SC SCH (20:56)
[2018-11-15] VITALS (8 sets, daily range): BP systolic 80–144; BP diastolic 64–94
--- NOTE | 2018-11-15 00:37 | REPVR ---
EXAM: US Left Duplex Upper Extremity Veins, Limited EXAM DATE/TIME: 11/14/2018 12:14 AM CLINICAL HISTORY: 73 years old, male; Pain; Arn, upper; Left; Additional info: Left elbow pain/ forearm swelling TECHNIQUE: Real-time Duplex ultrasound of the Left Upper Extremity with 2-D mcnkight scale, color Doppler flow and spectral waveform analysis. Limited exam focused on the left upper extremity veins. COMPARISON: No relevant prior studies available. FINDINGS: Left deep veins: Internal jugular, subclavian, axillary and brachial veins patent without thrombus. Normal compressibility, augmentation response and/or Doppler waveforms. Left superficial veins: Visualized cephalic and basilic veins patent without thrombus. Soft tissues: Unremarkable. IMPRESSION: No sonographic evidence of deep vein thrombosis. Electronically signed by: Mike Nguyen On 11/15/2018 00:37:35 AM
[2018-11-15] MEDS: FUROSEMIDE 40 MG/4 ML VIAL (J1940) IV SCH ×3 (00:48→23:46)
[2018-11-15] MEDS: guaiFENesin ER 600 MG TAB PO SCH ×3 (01:26→20:57)
[2018-11-15] MEDS: BENZONATATE 100 MG CAP PO SCH ×4 (01:27→20:57)
[2018-11-15 05:31] LABS: HEMOGLOBIN 13.7 g/dl (13.5-17.5); MEAN CORPUSCULAR HEMOGLOBIN 24.6 pg (27.0-33.0); MEAN CORPUSCULAR HGB CONC 31.9 g/dl (32.0-36.5); MEAN CORPUSCULAR VOLUME 77.2 fl (80.0-96.0); PLATELET COUNT, AUTOMATED 178 10^3/uL (150-450); RED BLOOD COUNT 5.57 10^6/uL (4.30-6.10); WHITE BLOOD COUNT 6.6 10^3/uL (4.0-10.0)
[2018-11-15] MEDS: SLF 3 ML SYR IV SCH ×3 (05:59→21:26)
[2018-11-15 06:00] LABS: BLOOD UREA NITROGEN 19 MG/DL (7-18); CALCIUM LEVEL 8.5 MG/DL (8.8-10.2); CARBON DIOXIDE LEVEL 34 MEQ/L (21-32); CHLORIDE LEVEL 98 MEQ/L (98-107); CREATININE FOR GFR 1.05 MG/DL (0.70-1.30); GLOMERULAR FILTRATION RATE > 60.0 (>42); GLUCOSE, FASTING 87 MG/DL (70-100); POTASSIUM SERUM 3.8 MEQ/L (3.5-5.1); SODIUM LEVEL 135 MEQ/L (136-145)
[2018-11-15] MEDS: HumaLOG INSULIN (NovoLOG) PER UNIT SC SCH ×4 (07:30→20:39)
[2018-11-15] MEDS: PANTOPRAZOLE 40MG TAB (PROTONIX) PO SCH (08:00)
[2018-11-15] MEDS: SPIRONOLACTONE 12.5MG PER 1/2 TABLET PO SCH (08:00)
[2018-11-15] MEDS: ALLOPURINOL 100 MG TAB PO SCH (08:00)
[2018-11-15] MEDS: CARVedilol 12.5 MG TAB PO SCH ×2 (08:06→20:48)
[2018-11-15] MEDS: ENOXAPARIN 120 MG/0.8 ML SYR (J1650) SC SCH ×2 (08:07→20:56)
[2018-11-15] MEDS: ENTRESTO 24-26MG TABLET (SACUBITRIL/VALSARTAN) PO SCH ×2 (08:07→20:48)
[2018-11-15] MEDS ORDERED: BENZONATATE 100 MG CAP PO SCH (09:00)
[2018-11-15] MEDS: ACETAMINOPHEN 500 MG TAB PO PRN ×2 (09:53→17:58)
--- NOTE | 2018-11-15 10:27 | IPNPDOC ---
Text Note Date of Service The patient was seen on 11/15/18. NOTE SUBJECTIVE: Patient examined at bedside. Overnight patient had 21 beats of V. tach. His pacemaker did not respond. He was asymptomatic. He is currently being followed by cardiology. He has no acute cardiac complaints. No shortness of breath. OBJECTIVE: VITAL SIGNS: See below GENERAL:Pleasant cayla male, resting in bed, no cough, speaking full sentences HEENT: No JVD, head is atraumatic CARDIOVASCULAR EXAM: S1, S2, regular no rubs RESPIRATORY EXAM: Clear to auscultate, no crackles or wheezing ABDOMINAL EXAM: Obese abdomen, soft. No fluid wave EXTREMITIES: 1+ bilateral pitting edema, warm, pulses detected LABORATORY STUDIES: See below ASSESSMENT AND PLAN: This is a 73-year-old -[place] male admitted for weakness, lethargy, secondary to urosepsis. Patient also has a past medical history of CHF with ejection fraction of 10%. Cardiology has been consulted. GI has also been consulted due to patient's past medical history of cholangitis #Urosepsis, secondary to E. coli UTI -Has completed antibiotic course. He has no urinary symptoms #CHF -He has an implantablecardioverter-defibrillator (ICD) placed 2 years ago in [place]. -Echo 11/05/18: Dilated severely globally hypokinetic left ventricle with overall estimated LVEF 10-15%. -Cardiology, Dr. Biswas consulted. -Euvolemic, no JVD, continue monitor # History of cholangitis. -biliary stent in place - GI has been consulted - Pt is medically opitimized for ERCP, it is scheduled for next Saturday # Acute kidney injury. -Improving - Continue to monitor # Diabetes. Finger sticks are well controlled. # Gastroesophageal reflux disease. He is on Protonix. # Deep venous thrombosis (DVT) prophylaxis. He is on therapeutic Lovenox. DISPOSITION: Pending ERCP on saturday VS,Faviane, I+O VS, Ramonebone, I+O Laboratory Tests 11/15/18 05:13 Red Blood Count 5.57, Mean Corpuscular Volume 77.2 L, Mean Corpuscular Hemoglobin 24.6 L, Mean Corpuscular Hemoglobin Concent 31.9 L, Red Cell Distribution Width 20.1 H, Calcium Level 8.5 L Vital Signs Date Time Temp Pulse Resp B/P (MAP) Pulse Ox O2 Delivery O2 Flow Rate FiO2 11/15/18 08:06 77 114/71 11/15/18 07:51 98.8 18 92 11/13/18 00:00 8.0 11/09/18 20:00 35 I&O- Last 24 Hours up to 6 AM 11/15/18 05:59 Intake Total 1355 ml Output Total 2175 ml Balance -820 ml GME ATTESTATION GME ATTESTATION My faculty preceptor for this patient encounter was physically present during the encounter and was fully available. All aspects of the patient interview, examination, medical decision making process, and medical care plan development were reviewed and approved by the faculty preceptor. The faculty preceptor is aware and concurs with the plan as stated in the body of this note and will attest to such by his/her cosignature. HANK LOTT DO Nov 15, 2018 10:27
[2018-11-15] MEDS ORDERED: POTASSIUM CHLORIDE 10 MEQ SR TABLET PO ONE (13:00)
[2018-11-15] MEDS ORDERED: traMADol 50 MG TAB PO ONE (15:15)
--- NOTE | 2018-11-15 15:49 | IPN ---
DATE: 11/15/2018 Mr. Vargas complains about left arm pain. He apparently was woken up last night with pain in his left elbow that eventually spread to his left wrist and left hand. It is very painful when he tries to raise the arm. There is no obvious swelling or redness. Pulses are of good quality. He had an ultrasound that did not reveal any evidence for thrombosis. As far as dyspnea is concerned, it continues to improve. He feels comfortable at rest. Denies any chest pain or palpitations. Unfortunately continues to have episodes of nonsustained ventricular tachycardia. Had one that lasted 20 beats. Vital signs: Blood pressure 114/71, heart rate 77, afebrile. Saturation is 92% on room air. His fluid balance yesterday was documented as +500, but weight is 125.4, which is about 2 kg down compared to 3 days ago. His balance is already negative about a liter and a half today. He is alert, oriented, and appropriate. His jugular venous pulse (JVP) is only like 2 or 3 cm above clavicle. Lungs are clear. Heart exam: Irregularly irregular rhythm. I do not appreciate any gallop or murmur. Abdomen is distended. There is still peripheral edema, about 1-2+ to mid shins. Neurologically intact. LABORATORY: CBC is normal. Basic metabolic panel reveals sodium of 35, potassium 3.8, BUN 19, creatinine 1.05, and glucose 87 ASSESSMENT AND PLAN: Mr. Vargas is a 73-year-old -[place] man who has a longstanding history of severe left ventricular systolic dysfunction in the setting of nonischemic cardiomyopathy. He also has chronic atrial fibrillation. He was admitted with acutely exacerbated heart failure with grossly volume overloaded state and concomitant acute renal failure. With diuresis and vasodilators improved, he was eventually switched to initially angiotensin receptor blockers (ARBs) and of yesterday to angiotensin receptor-neprilysin inhibitors (ARNI). So far has been tolerated well, and he continues to improve from hemodynamic perspective. Atrial fibrillation is reasonably well controlled. I increased the dose of carvedilol to 12.5 twice a day. There are several other issues. First of all, he continues to have runs of nonsustained ventricular tachycardia (VT), which is to be expected in somebody with cardiomyopathy and severe left ventricular systolic dysfunction. I think it is further exacerbated by his relatively rapid volume loss. He is on spironolactone, and his potassium is slightly on the low side, so I am going to give him a single dose of supplemental potassium today. As far as the pain in his left forearm and wrist is concerned, I am not sure what is the etiology. The physical exam looks benign. I still do not appreciate any obvious swelling. There are good pulses, both ulnar and radial artery. I suspect it could be potentially infectious in nature or even possibly gout. At this time, he has a heating pad and will provide pain control. Tentatively he is scheduled to have endoscopic retrograde cholangiopancreatography (ERCP) early next week.
[2018-11-15] MEDS: CEPACOL LOZENGE PO PRN ×2 (17:58→23:51)
[2018-11-15] MEDS: LEVEMIR (INSULIN DETEMIR) 1 UNITS/0.01ML SC SCH (20:56)
[2018-11-16] MEDS: ACETAMINOPHEN 500 MG TAB PO PRN ×2 (00:38→16:55)
[2018-11-16 04:00] VITALS: BP 103/66
[2018-11-16] MEDS: SLF 3 ML SYR IV SCH ×3 (05:22→21:00)
[2018-11-16 05:43] LABS: HEMOGLOBIN 13.3 g/dl (13.5-17.5); MEAN CORPUSCULAR HEMOGLOBIN 24.4 pg (27.0-33.0); MEAN CORPUSCULAR HGB CONC 31.7 g/dl (32.0-36.5); MEAN CORPUSCULAR VOLUME 77.1 fl (80.0-96.0); PLATELET COUNT, AUTOMATED 173 10^3/uL (150-450); RED BLOOD COUNT 5.45 10^6/uL (4.30-6.10); WHITE BLOOD COUNT 7.2 10^3/uL (4.0-10.0)
[2018-11-16 05:58] LABS: BLOOD UREA NITROGEN 22 MG/DL (7-18); CALCIUM LEVEL 8.3 MG/DL (8.8-10.2); CARBON DIOXIDE LEVEL 31 MEQ/L (21-32); CHLORIDE LEVEL 100 MEQ/L (98-107); CREATININE FOR GFR 1.23 MG/DL (0.70-1.30); GLOMERULAR FILTRATION RATE > 60.0 (>42); GLUCOSE, FASTING 167 MG/DL (70-100); POTASSIUM SERUM 4.4 MEQ/L (3.5-5.1); SODIUM LEVEL 133 MEQ/L (136-145)
[2018-11-16 08:00] VITALS: BP 103/55
[2018-11-16] MEDS: ALLOPURINOL 100 MG TAB PO SCH (08:05)
[2018-11-16] MEDS: ENTRESTO 24-26MG TABLET (SACUBITRIL/VALSARTAN) PO SCH ×2 (08:06→20:59)
[2018-11-16] MEDS: PANTOPRAZOLE 40MG TAB (PROTONIX) PO SCH (08:06)
[2018-11-16] MEDS: SPIRONOLACTONE 12.5MG PER 1/2 TABLET PO SCH (08:06)
[2018-11-16] MEDS: CARVedilol 12.5 MG TAB PO SCH ×2 (08:07→20:59)
[2018-11-16] MEDS: BENZONATATE 100 MG CAP PO SCH ×3 (08:07→20:59)
[2018-11-16] MEDS: guaiFENesin ER 600 MG TAB PO SCH ×2 (08:07→20:59)
[2018-11-16] MEDS: HumaLOG INSULIN (NovoLOG) PER UNIT SC SCH ×4 (08:08→21:00)
[2018-11-16] MEDS: ENOXAPARIN 120 MG/0.8 ML SYR (J1650) SC SCH (08:08)
--- NOTE | 2018-11-16 10:36 | IPNPDOC ---
Date Seen The patient was seen on 11/16/18. 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 No fluid wave EXTREMITIES: 1+ bilateral pitting edema, warm improving daily, pulses detected LABORATORY STUDIES: See below ASSESSMENT AND PLAN: This is a 73-year-old -[place] male admitted for decompensated severe systolic congestive heart failure. #Urosepsis, secondary to E. coli UTI -Has completed antibiotic course. He has no urinary symptoms #Decompensated severe systolic CHF -He has an implantablecardioverter-defibrillator (ICD) placed 2 years ago in [place]. Cardiology was greatly appreciated he continue to diuresis he is approaching a bulimia. He is continued on entrance to carvedilol spironolactone -Echo 11/05/18: Dilated severely globally hypokinetic left ventricle with overall estimated LVEF 10-15%. # History of cholangitis. -biliary stent in place however the feeling is that it is too small and he would benefit from a larger stent the plan is for stent exchange tomorrow that request that this evening and tomorrow morning Lovenox dosing be held spoken directly with nursing staff and entered in order to this effect - GI has been consulted - Pt is medically opitimized as per cardiology for ERCP # Acute kidney injury. Resolved likely secondary to decompensated heart failure and it did improve with diuresis # Diabetes. Finger sticks are well controlled. # Gastroesophageal reflux disease. He is on Protonix. #Atrial fibrillation he is anticoagulated and rate controlled appropriately #Epistaxis. Resolved #Gout continue with allopurinol # Deep venous thrombosis (DVT) prophylaxis. He is on therapeutic Lovenox. DISPOSITION: Pending ERCP on saturday VS, I&O, 24H, Fishbone Vital Signs/I&O Vital Signs Date Time Temp Pulse Resp B/P (MAP) Pulse Ox O2 Delivery O2 Flow Rate FiO2 11/16/18 08:07 88 103/61 11/16/18 08:00 97.2 20 98 11/13/18 00:00 8.0 I&O- Last 24 Hours up to 6 AM 11/16/18 06:00 Intake Total 1140 ml Output Total 2650 ml Balance -1510 ml Laboratory Data 24H LABS Laboratory Tests 2 11/15/18 13:40: Bedside Glucose (Misc Panel) 215H 11/15/18 17:48: Bedside Glucose (Misc Panel) 172H 11/15/18 20:02: Bedside Glucose (Misc Panel) 185H 11/16/18 05:11: Nucleated Red Blood Cells % (auto) 0.0, Anion Gap 2L, Glomerular Filtration Rate > 60.0, Blood Urea Nitrogen 22H, Creatinine 1.23, Sodium Level 133L, Potassium Level 4.4, Chloride Level 100, Carbon Dioxide Level 31, Calcium Level 8.3L CBC/BMP Laboratory Tests 11/16/18 05:11 Red Blood Count 5.45, Mean Corpuscular Volume 77.1 L, Mean Corpuscular Hemoglobin 24.4 L, Mean Corpuscular Hemoglobin Concent 31.7 L, Red Cell Distribution Width 20.4 H, Calcium Level 8.3 L AMISHA IBRAHIM MD Nov 16, 2018 10:36
[2018-11-16 12:00] VITALS: BP 122/72
[2018-11-16] MEDS: CEPACOL LOZENGE PO PRN (12:33)
[2018-11-16 16:00] VITALS: BP 126/71
[2018-11-16] MEDS: FUROSEMIDE 100 MG/10 ML VIAL (J1940) IV SCH (16:54)
[2018-11-16 20:00] VITALS: BP 108/64
[2018-11-16] MEDS: LEVEMIR (INSULIN DETEMIR) 1 UNITS/0.01ML SC SCH (21:00)
[2018-11-16 23:59] VITALS: BP 112/70
[2018-11-17] VITALS (9 sets, daily range): BP systolic 93–128; BP diastolic 59–94
[2018-11-17] MEDS: SLF 3 ML SYR IV SCH ×3 (05:08→22:00)
[2018-11-17 05:48] LABS: HEMATOCRIT 41.5 % (42.0-52.0); HEMOGLOBIN 13.1 g/dl (13.5-17.5); MEAN CORPUSCULAR HEMOGLOBIN 24.5 pg (27.0-33.0); MEAN CORPUSCULAR HGB CONC 31.6 g/dl (32.0-36.5); MEAN CORPUSCULAR VOLUME 77.6 fl (80.0-96.0); PLATELET COUNT, AUTOMATED 183 10^3/uL (150-450); RED BLOOD COUNT 5.35 10^6/uL (4.30-6.10); WHITE BLOOD COUNT 5.8 10^3/uL (4.0-10.0)
[2018-11-17 06:10] LABS: BLOOD UREA NITROGEN 25 MG/DL (7-18); CALCIUM LEVEL 8.5 MG/DL (8.8-10.2); CARBON DIOXIDE LEVEL 30 MEQ/L (21-32); CHLORIDE LEVEL 102 MEQ/L (98-107); CREATININE FOR GFR 1.17 MG/DL (0.70-1.30); GLOMERULAR FILTRATION RATE > 60.0 (>42); GLUCOSE, FASTING 92 MG/DL (70-100); NT-PRO BNP 1168 PG/ML (<125); SODIUM LEVEL 137 MEQ/L (136-145)
--- NOTE | 2018-11-17 07:04 | IPN ---
DATE: 11/16/2018 Mr. Vargas is feeling better today. His left arm and wrist is much better. The pain is essentially gone. Breathing is not much different. He was able to ambulate without major difficulty. He continues to be in rate-controlled atrial fibrillation. He continues to have episodes of nonsustained ventricular tachycardia (VT), but it looks like that there has been some improvement. Vital Signs: Blood pressure 103/61. Heart rate mostly in 70s and 80s. He is afebrile. Saturation 98% on room air. His fluid balance yesterday was documented about negative 2 liters, but the weight is unchanged. He is alert and oriented and appropriate. Jugular venous pulse (JVP) does not appear much elevated over clavicle, maybe 2 cm. Lungs are clear. Heart exam reveals irregularly irregular rhythm. Murmur is unchanged. Abdomen is obese but soft. He still has about 1+ edema to mid shins that is slowly improving. Neurologically he is intact. Laboratory-bynum, basic metabolic panel with sodium 133, potassium 4.4, BUN 22, creatinine 1.2 and glucose 167. CBC with hemoglobin 13.3, hematocrit 42. ASSESSMENT/PLAN: Mr. Vargas is a 73-year-old man with severe nonischemic cardiomyopathy and chronic atrial fibrillation. He presented with acutely exacerbated congestive heart failure together with acute renal failure. He diuresed approximately 18 kg so far and was started on directed therapies. He is on a reasonably good dose of beta-jerel. He is on Entresto. He is also on spironolactone. He is still mildly volume overloaded and because his weight is unchanged from yesterday I am going to increase the dose of furosemide to 80 mg twice a day IV. I suspect that we will do it only for one day. Tomorrow, he will be operated on with ERCP and consequently is likely that the dose of diuretics will be reduced afterwards. I am going to obtain a terminal pro BNP measurement tomorrow morning to see whether we made any progress. Otherwise, the ERCP is scheduled for tomorrow. His anticoagulation will be held for the procedure. I am being told that this procedure is essentially necessary and he seems to be reasonably well compensated.
[2018-11-17] MEDS: HumaLOG INSULIN (NovoLOG) PER UNIT SC SCH ×4 (07:30→21:00)
[2018-11-17] MEDS: CARVedilol 12.5 MG TAB PO SCH ×2 (09:00→21:05)
[2018-11-17] MEDS: BENZONATATE 100 MG CAP PO SCH ×3 (09:00→21:02)
[2018-11-17] MEDS: ENTRESTO 24-26MG TABLET (SACUBITRIL/VALSARTAN) PO SCH ×2 (09:00→21:04)
[2018-11-17] MEDS: PANTOPRAZOLE 40MG TAB (PROTONIX) PO SCH (09:05)
[2018-11-17] MEDS: FUROSEMIDE 100 MG/10 ML VIAL (J1940) IV SCH ×2 (09:05→18:49)
[2018-11-17] MEDS: ALLOPURINOL 100 MG TAB PO SCH (09:06)
[2018-11-17] MEDS: SPIRONOLACTONE 12.5MG PER 1/2 TABLET PO SCH (09:06)
[2018-11-17] MEDS: guaiFENesin ER 600 MG TAB PO SCH ×2 (09:07→21:02)
--- NOTE | 2018-11-17 09:58 | IPN ---
DATE: 11/17/2018 Mr. Vargas had a relatively uneventful night. He was able to sleep without any paroxysmal nocturnal dyspnea (PND). Denies any chest pain, palpitations or shortness of breath. His heart rate is now well rate-controlled. During sleep it sometimes dips into high 40s low 50s. He continues to have brief runs of nonsustained ventricular tachycardia, but they are becoming less frequent and less prolonged. VITAL SIGNS: This morning, blood pressure 99/62, heart rate in 60s, afebrile. Saturation 91% on room air. His fluid balance yesterday was documented negative 1700. Weight is 125.2 kg. He is alert, oriented and appropriate. His jugular venous pressure (JVP) is only mildly elevated, maybe 2 cm above the clavicle. Lungs are clear. Heart exam reveals irregularly irregular rhythm. There is faint murmur at the apex, but no gallop or rub is appreciated. Abdomen is soft. Peripheral edema is almost completely gone, 1+ just around the ankles. LABORATORY: CBC reveals hemoglobin 13.1, hematocrit 41.5 and platelet count 183,000. Basic metabolic panel sodium 137, potassium 4.0, BUN 25, creatinine 1.1 and glucose 92. His N terminal proBNP is still elevated at 1170, which is only mildly decreased since admission, which is somewhat surprising considering the very dramatic fluid loss, recovery of renal function and institution of guideline directed therapies. ASSESSMENT/PLAN: Mr. Vargas is a 73-year-old man with severe nonischemic cardiomyopathy and chronic congestive heart failure that is systolic in nature. He also has chronic atrial fibrillation. He presented with exacerbated CHF with acute renal failure. He is approaching euvolemic status which I think he will become euvolemic within a day or two. Blood pressure has started to be soft, so I am afraid that we probably will not be able to diurese him dramatically much more, but a few more pounds I think we should be able to get off. I will not make any medication changes today. He is supposed to have ERCP later today and I explained to him that there is some risk to the procedure, but it looks like it is inevitable that it has to be done and I think that at this point he is medically optimized.
--- NOTE | 2018-11-17 11:32 | IPNPDOC ---
Text Note Date of Service The patient was seen on 11/17/18. NOTE SUBJECTIVE: Patient was examined at bedside. He had no acute complaints. He is breathing comfortably, he is scheduled for his biliary stent exchange today. OBJECTIVE: VITAL SIGNS: See below GENERAL:Pleasant male, speaking in full sentence, no respiratory complaints HEENT: No JVD CARDIOVASCULAR EXAM: S1, S2 normal, no murmur RESPIRATORY EXAM: Clear to auscultate ABDOMINAL EXAM: Obese abdomen, soft. No fluid wave, nondistended EXTREMITIES: 1+ bilateral pitting edema, warm improving daily, pulses detected LABORATORY STUDIES: See below ASSESSMENT AND PLAN: This is a 73-year-old -[place] male admitted for decompensated severe systolic congestive heart failure. #Sepsis secondary UTI, Escherichia coli -Has completed antibiotic course. He has no urinary symptoms # Decompensated severe systolic CHF -He has an implantablecardioverter-defibrillator (ICD) placed 2 years ago in [place]. Cardiology was greatly appreciated. -Echo 11/05/18: Dilated severely globally hypokinetic left ventricle with overall estimated LVEF 10-15%. -Resolved # History of cholangitis. -biliary stent in place however the feeling is that it is too small and he would benefit from a larger stent the plan is for stent exchange today - GI has been consulted - Pt is medically opitimized as per cardiology for ERCP # Acute kidney injury. Resolved likely secondary to decompensated heart failure -Improved # Diabetes. Finger sticks are well controlled. # Gastroesophageal reflux disease. He is on Protonix. #Atrial fibrillation he is anticoagulated and rate controlled appropriately #Epistaxis. Resolved #Gout continue with allopurinol # Deep venous thrombosis (DVT) prophylaxis. He is on therapeutic Lovenox. DISPOSITION: ERCP scheduled for today. VS,Fishbone, I+O VS, Fishbone, I+O Laboratory Tests 11/17/18 05:07 Red Blood Count 5.35, Mean Corpuscular Volume 77.6 L, Mean Corpuscular He moglobin 24.5 L, Mean Corpuscular Hemoglobin Concent 31.6 L, Red Cell Distribution Width 20.7 H, Calcium Level 8.5 L Vital Signs Date Time Temp Pulse Resp B/P (MAP) Pulse Ox O2 Delivery O2 Flow Rate FiO2 11/17/18 09:00 65 99/62 11/17/18 07:52 97.8 18 91 11/13/18 00:00 8.0 I&O- Last 24 Hours up to 6 AM 11/17/18 06:00 Intake Total 300 ml Output Total 1450 ml Balance -1150 ml GME ATTESTATION GME ATTESTATION My faculty preceptor for this patient encounter was physically present during the encounter and was fully available. All aspects of the patient interview, examination, medical decision making process, and medical care plan development were reviewed and approved by the faculty preceptor. The faculty preceptor is aware and concurs with the plan as stated in the body of this note and will attest to such by his/her cosignature. HANK LOTT DO Nov 17, 2018 11:32
[2018-11-17] MEDS: D5W 1,000 ML IV SCH (13:51)
[2018-11-17] MEDS ORDERED: ISOVUE-300 61% 50ML VIAL (Q9967) As Ordered ONE (15:35)
[2018-11-17] MEDS ORDERED: fentaNYL 100 MCG/2 ML INJECTION (J3010) As Ordered ONE (16:03)
[2018-11-17] MEDS ORDERED: ROCURONIUM BROMIDE 50 MG/5 ML VIAL As Ordered ONE (16:03)
[2018-11-17] MEDS ORDERED: PROPOFOL 200 MG/20 ML VIAL As Ordered ONE (16:03)
[2018-11-17] MEDS ORDERED: ETOMIDATE INJ 20MG/10ML VIAL As Ordered ONE (16:03)
[2018-11-17] MEDS ORDERED: LIDOCAINE 2% INJ 100 MG/5 ML SDV (FOR ANES.) As Ordered ONE (16:39)
[2018-11-17] MEDS ORDERED: DEXTROSE 50% 50 ML SYRINGE ONE (16:40)
[2018-11-17] MEDS ORDERED: PHENYLephrine HCL 500 MCG/5 ML (100MCG/ML) SYRINGE (J2370) As Ordered ONE (17:02)
[2018-11-17] MEDS ORDERED: ONDANSETRON 4MG/2ML VIAL (J2405) As Ordered ONE (17:22)
[2018-11-17] MEDS ORDERED: METOCLOPRAMIDE INJ 10MG/2ML VIAL (J2765) As Ordered ONE (17:23)
[2018-11-17] MEDS ORDERED: SUGAMMADEX SODIUM 500 MG/5 ML VIAL (BRIDION) As Ordered ONE (17:26)
[2018-11-17] MEDS ORDERED: ONDANSETRON 4MG/2ML VIAL (J2405) IV PRN (18:00)
[2018-11-17] MEDS ORDERED: LR 1,000 ML IV SCH (18:00)
--- NOTE | 2018-11-17 18:02 | ROOR ---
Patient Name: Blas Vargas Procedure Date: 11/17/2018 3:34 PM Date of : 1945 Age: 73 Room: Main OR Gender: Male Note Status: Finalized Procedure: ERCP Indications: Follow-up of ascending cholangitis, Stent change, Prior Endoscopic Retrograde Cholangiopancreatography, Biliary stent removal Providers: Fabricio BONILLA MD Referring MD: 2. Inpatient 2. Inpatient, Pj Gaona MD Requesting Provider: Medicines: Monitored Anesthesia Care Complications: No immediate complications. Procedure: Pre-Anesthesia Assessment: - The heart rate, respiratory rate, oxygen saturations, blood pressure, adequacy of pulmonary ventilation, and response to care were monitored throughout the procedure. The Duodenoscope was introduced through the mouth, and advanced to the duodenum and used to inject contrast into the bile duct. The ERCP was accomplished without difficulty. The patient tolerated the procedure well. Findings: A biliary stent was visible on the [employer] faculty film. A standard esophagogastroduodenoscopy scope was used for the examination of the upper gastrointestinal tract. The scope was passed under direct vision through the upper GI tract. A previously placed plastic stent was seen in the area of the papilla. One stent was removed from the biliary tree using a snare. The stent was found to be patent via the water column test. The EGD scope was withdrawn and replaced with the ERCP scope in order to accomplish the maneuver. The scope was advanced to a normal major papilla in the descending duodenum. Examination of the pharynx, larynx and associated structures, and upper GI tract was normal. The major papilla was normal. A wire was passed into the biliary tree. The bile duct was then deeply cannulated over the guidewire. Contrast was injected. I personally interpreted the bile duct images. Ductal flow of contrast was adequate. Image quality was suboptimal. Contrast extended to the entire biliary tree. Air bubbles were visualized in the main bile duct. The in the biliary system was not dilated. One 10 mm by 6 cm covered metal stent was placed 5 cm into the common bile duct. Bile flowed through the stent. The stent was in good position. Impression: - Plastic stent in the duodenum. This stent was removed from the bile duct. - One covered (10 mm x 6 cm) metal stent was placed into the common bile duct. Recommendation: - Repeat ERCP to remove stent only after possible future cholecystectomy. - Replace stent if signs or symptoms of stent occlusion occur. - (Note: This biliary stent may remain in place relatively indefinitely, and is much less likely to occlude over time.) - (Note: Pt with intermittent mixed bilirubin elevation (variable 2-6 in past) related to congestive hepatopathy/severe R and L heart failure. HIDA scan could help differentiate stent occlusion vs liver congestion/CHF.) Fabricio Bonilla MD Fabricio BONILLA MD 11/17/2018 6:01:44 PM This report has been signed electronically. Number of Addenda: 0 Note Initiated On: 11/17/2018 3:34 PM Estimated Blood Loss: Estimated blood loss: none.
[2018-11-17] MEDS: CEPACOL LOZENGE PO PRN (21:01)
[2018-11-17] MEDS: LEVEMIR (INSULIN DETEMIR) 1 UNITS/0.01ML SC SCH (21:02)
[2018-11-17] MEDS: ONDANSETRON 4MG/2ML VIAL (J2405) IV PRN (22:29)
[2018-11-18] VITALS (8 sets, daily range): BP systolic 54–142; BP diastolic 52–84
[2018-11-18 05:59] LABS: HEMATOCRIT 44.8 % (42.0-52.0); MEAN CORPUSCULAR HEMOGLOBIN 24.5 pg (27.0-33.0); MEAN CORPUSCULAR HGB CONC 31.3 g/dl (32.0-36.5); MEAN CORPUSCULAR VOLUME 78.3 fl (80.0-96.0); PLATELET COUNT, AUTOMATED 186 10^3/uL (150-450); RED BLOOD COUNT 5.72 10^6/uL (4.30-6.10); WHITE BLOOD COUNT 7.9 10^3/uL (4.0-10.0)
[2018-11-18] MEDS: SLF 3 ML SYR IV SCH ×3 (06:00→21:26)
[2018-11-18 06:14] LABS: BLOOD UREA NITROGEN 24 MG/DL (7-18); CALCIUM LEVEL 8.6 MG/DL (8.8-10.2); CARBON DIOXIDE LEVEL 27 MEQ/L (21-32); CHLORIDE LEVEL 99 MEQ/L (98-107); CREATININE FOR GFR 1.22 MG/DL (0.70-1.30); GLOMERULAR FILTRATION RATE > 60.0 (>42); GLUCOSE, FASTING 145 MG/DL (70-100); POTASSIUM SERUM 4.6 MEQ/L (3.5-5.1); SODIUM LEVEL 132 MEQ/L (136-145)
--- NOTE | 2018-11-18 08:28 | IPN ---
DATE: 11/18/2018 Mr. Vargas had his endoscopic retrograde cholangiopancreatography (ERCP) yesterday and the procedure itself was uneventful and patient did not have any obvious complications. He feels much better today, I believe mostly because he is relieved that the procedure is over with. Denies any chest pain or shortness of breath. Vital signs: Blood pressure 133/84. Heart rate has been 80s and 90s. He is afebrile. Saturation is 93% on room air. Fluid balance yesterday was documented as approximately equal. His weight has not been documented this morning as yet. He is alert and oriented appropriate. His jugular venous pulse (JVP) does not appear elevated above clavicle. Lungs are clear. Heart exam irregularly irregular rhythm. No gallop. Abdomen is obese, and he has only trace edema today. Neurologically intact. Laboratory: CBC is normal with hemoglobin 14, platelet count 186,000, and basic metabolic panel reveals sodium 132, potassium 4.6, BUN 24, creatinine 1.2 and glucose 145. ASSESSMENT AND PLAN: Mr. Vargas is a 73-year-old man, who has nonischemic cardiomyopathy and severe left ventricular systolic dysfunction. He presented with acute on chronic systolic heart failure with concomitant acute renal failure. He is much improved after profound diuresis. He was started gradually on Entresto after his renal function recovered and he was transiently on vasodilators. He is also on rate controlling medications. Currently on Coreg 12.5 mg twice a day, which is well tolerated and accomplishes good rate control of his atrial fibrillation, At this point, I will leave his medications unchanged. I believe that he is getting really close to being discharged home. Once he is able to ambulate, I think he will be able to go home and I think that it should be within next day or two.
[2018-11-18] MEDS: HumaLOG INSULIN (NovoLOG) PER UNIT SC SCH ×4 (08:57→21:00)
[2018-11-18] MEDS: FUROSEMIDE 100 MG/10 ML VIAL (J1940) IV SCH ×2 (08:58→17:23)
[2018-11-18] MEDS: BENZONATATE 100 MG CAP PO SCH ×3 (08:59→21:23)
[2018-11-18] MEDS: SPIRONOLACTONE 12.5MG PER 1/2 TABLET PO SCH (08:59)
[2018-11-18] MEDS: PANTOPRAZOLE 40MG TAB (PROTONIX) PO SCH (08:59)
[2018-11-18] MEDS: ONDANSETRON 4MG/2ML VIAL (J2405) IV PRN (08:59)
[2018-11-18] MEDS: ALLOPURINOL 100 MG TAB PO SCH (08:59)
[2018-11-18] MEDS: ENTRESTO 24-26MG TABLET (SACUBITRIL/VALSARTAN) PO SCH ×2 (08:59→21:00)
[2018-11-18] MEDS: guaiFENesin ER 600 MG TAB PO SCH ×2 (08:59→21:19)
[2018-11-18] MEDS: CARVedilol 12.5 MG TAB PO SCH ×2 (08:59→21:00)
--- NOTE | 2018-11-18 09:38 | IPNPDOC ---
Text Note Date of Service The patient was seen on 11/18/18. NOTE SUBJECTIVE: Pt was examined at bedside. He underwent an ERCP yesterday, a large biliary stent was placed. This stent should be an indefinite stent, unless patient desires cholecystectomy. He complained of sore throat and nausea. He report one episode of emesis over night. He was eating breakfast, but was clearly having difficulty due to his nausea and sore throat. Zofran was given due to nausea. His sore throat was likely from his intubation during surgery. I explained to PT that is will likely resolved with time. OBJECTIVE: VITAL SIGNS: See below GENERAL:Pleasant male, speaking in full sentence, no respiratory complaints, eating breakfast HEENT: No JVD, CARDIOVASCULAR EXAM: S1, S2 normal, no murmur RESPIRATORY EXAM: Clear to auscultate, no rubs, no crackles ABDOMINAL EXAM: Obese abdomen, soft. No fluid wave, nondistended EXTREMITIES:Trace edema in bilateral lower extremity LABORATORY STUDIES: See below ASSESSMENT AND PLAN: This is a 73-year-old -Fijian male admitted for decompensated severe systolic congestive heart failure. #Sepsis secondary to UTI, E. coli -Has completed antibiotic course. -He has no urinary symptoms #Decompensated severe systolic CHF -He has an ICD placed 2 years ago in [place]. -Echo 11/05/18: Dilated severely globally hypokinetic left ventricle with overall estimated LVEF 10-15%. -Cardiology was greatly appreciated; Compensated at his point # History of cholangitis. -Underwent ERCP, with placement of a larger biliary stent -No abdominal pain # Acute kidney injury. -Resolved # Diabetes. Finger sticks are well controlled. # Gastroesophageal reflux disease. He is on Protonix. #Atrial fibrillation he is anticoagulated and rate controlled appropriately #Epistaxis. Resolved #Gout continue with allopurinol # Deep venous thrombosis (DVT) prophylaxis. He is on therapeutic Lovenox. DISPOSITION: ERCP scheduled for today. VS,Fishbone, I+O VS, Fishbone, I+O Laboratory Tests 11/18/18 05:33 Red Blood Count 5.72, Mean Corpuscular Volume 78.3 L, Mean Corpuscular Hemoglobin 24.5 L, Mean Corpuscular Hemoglobin Concent 31.3 L, Red Cell Distribution Width 21.2 H, Calcium Level 8.6 L Vital Signs Date Time Temp Pulse Resp B/P (MAP) Pulse Ox O2 Delivery O2 Flow Rate FiO2 11/18/18 08:59 90 133/84 11/18/18 08:00 97.4 18 93 11/17/18 18:15 Room Air 11/13/18 00:00 8.0 I&O- Last 24 Hours up to 6 AM 11/18/18 06:00 Intake Total 1800 ml Output Total 1825 ml Balance -25 ml GME ATTESTATION GME ATTESTATION My faculty preceptor for this patient encounter was physically present during the encounter and was fully available. All aspects of the patient interview, examination, medical decision making process, and medical care plan development were reviewed and approved by the faculty preceptor. The faculty preceptor is aware and concurs with the plan as stated in the body of this note and will attest to such by his/her cosignature. ATTENDING NOTE I, Edward Ny, have both independently examined this patient as well as reviewed the documentation. I have discussed in detail with the resident the findings and plan of treatment as documented in the residents documentation. I will continue to follow the patient and offer further guidance to the patients care as necessary during this hospital stay. HANK LOTT DO Nov 18, 2018 09:38 EDWARD [place] MD Nov 19, 2018 17:00
[2018-11-18] MEDS: D5W 1,000 ML IV SCH (10:15)
--- NOTE | 2018-11-18 11:13 | REP ---
C-ARM VIEWS DURING ERCP: Multiple C-arm views are performed during ERCP exam. Contrast is injected into the biliary system. A biliary stent is placed and appears to be in good position. 3 minutes 11 seconds fluoroscopy time utilized. Electronically Signed by Sinan Resendez MD 11/18/2018 05:21 P
[2018-11-18] MEDS: ACETAMINOPHEN 500 MG TAB PO PRN (11:24)
[2018-11-18] MEDS: LEVEMIR (INSULIN DETEMIR) 1 UNITS/0.01ML SC SCH (21:26)
[2018-11-19] MEDS: ACETAMINOPHEN 500 MG TAB PO PRN (03:28)
[2018-11-19 04:00] VITALS: BP 120/80
[2018-11-19] MEDS: D5W 1,000 ML IV SCH (06:14)
[2018-11-19] MEDS: SLF 3 ML SYR IV SCH ×2 (06:14→13:38)
[2018-11-19 06:18] LABS: HEMATOCRIT 42.3 % (42.0-52.0); HEMOGLOBIN 13.6 g/dl (13.5-17.5); MEAN CORPUSCULAR HGB CONC 32.2 g/dl (32.0-36.5); MEAN CORPUSCULAR VOLUME 77.8 fl (80.0-96.0); PLATELET COUNT, AUTOMATED 187 10^3/uL (150-450); RED BLOOD COUNT 5.44 10^6/uL (4.30-6.10)
[2018-11-19 06:40] LABS: BLOOD UREA NITROGEN 24 MG/DL (7-18); CALCIUM LEVEL 8.5 MG/DL (8.8-10.2); CARBON DIOXIDE LEVEL 30 MEQ/L (21-32); CHLORIDE LEVEL 96 MEQ/L (98-107); GLOMERULAR FILTRATION RATE > 60.0 (>42); GLUCOSE, FASTING 139 MG/DL (70-100); SODIUM LEVEL 134 MEQ/L (136-145)
[2018-11-19 08:00] VITALS: BP 112/62
[2018-11-19] MEDS: BENZONATATE 100 MG CAP PO SCH (08:45)
[2018-11-19] MEDS: FUROSEMIDE 100 MG/10 ML VIAL (J1940) IV SCH (08:45)
[2018-11-19 08:46] VITALS: BP 112/62
[2018-11-19] MEDS: CARVedilol 12.5 MG TAB PO SCH (08:46)
[2018-11-19] MEDS: SPIRONOLACTONE 12.5MG PER 1/2 TABLET PO SCH (08:46)
[2018-11-19] MEDS: ALLOPURINOL 100 MG TAB PO SCH (08:46)
[2018-11-19] MEDS: PANTOPRAZOLE 40MG TAB (PROTONIX) PO SCH (08:46)
[2018-11-19] MEDS: ENTRESTO 24-26MG TABLET (SACUBITRIL/VALSARTAN) PO SCH (08:46)
[2018-11-19] MEDS: guaiFENesin ER 600 MG TAB PO SCH (08:46)
--- NOTE | 2018-11-19 08:56 | IPN ---
DATE: 11/19/2018 Mr. Vargas is feeling much better. He slept well. He has no difficulty with oral intake and he ambulated with much less difficulty. Vital signs: Blood pressure 112/62, heart rate in 80s. He is afebrile. Saturation 95%. His fluid balance yesterday negative 700. Weight is 123.5 kg, which represents approximately a 20 kg weight loss since admission. He is alert and oriented appropriate. The jugular venous pulse (JVP) is no longer elevated above clavicle. Lungs are clear. Heart exam reveals irregularly irregular rhythm. Abdomen is obese. His peripheral edema is almost completely gone. Laboratory bynum, CBC is normal. Basic metabolic panel: Sodium 134, potassium 4.0, BUN 24, creatinine 1.3, glucose 139, and calcium 8.5. ASSESSMENT AND PLAN: Mr. Vargas is a 73-year-old -[place]er man, who has chronic atrial fibrillation and nonischemic cardiomyopathy. He presented with exacerbated congestive heart failure. After a vigorous diuresis, he is approaching euvolemic status. I believe that he will be able to go home tomorrow. I would leave his medications unchanged, but I would suggest that he gets discharged on a high dose of diuretics. My recommendation would be 100 mg of torsemide daily instead of current intravenous (IV) furosemide. The remaining cardiac medicines can be left unchanged. I tentatively plan to see in followup within 1 week.
[2018-11-19] MEDS: HumaLOG INSULIN (NovoLOG) PER UNIT SC SCH ×2 (08:57→13:25)
[2018-11-19] MEDS ORDERED: PANT40TA3 PO (10:15)
[2018-11-19] MEDS ORDERED: TORS100T PO (10:15)
[2018-11-19] MEDS ORDERED: CARV12.5 PO (10:15)
[2018-11-19] MEDS ORDERED: ENTR1TAB PO (10:15)
[2018-11-19] MEDS ORDERED: SPIR-10 PO (10:15)
--- NOTE | 2018-11-19 17:13 | DS.PDOC ---
Discharge Summary General Date of Admission Nov 05, 2018 at 12:05 Date of Discharge 11/19/2018 Discharge Summary PROCEDURES PERFORMED DURING STAY: ERCP 11/17/18 for biliary stent replacement with Dr. Hernandez ADMITTING DIAGNOSES / DISCHARGE DIAGNOSES: s/p Sepsis - 2/2 UTI s/p Decompensated Systolic CHF Hx of Cholangitis with biliary stent placement; s/p replacement of stent via ERCP on 11/18 s/p CHARLIE on CKD3 DM2 GERD Atrial fibrillation s/p Epistaxis Gout DVT prophylaxis COMPLICATIONS/CHIEF COMPLAINT: General Weakness HISTORY OF PRESENT ILLNESS: Patient is 73-year-old -Nigerien male with a PMHx of HTN, Atrial fibrillation, Systolic CHF s/p AICD, DM2, CKD3, Morbid obesity, Hx of Cholangiti s (07/2018) s/p ERCP and Biliary stent who presented to the ER with generalized weakness. Patient was found to have urinary tract infection. Was admitted to hospital service for further evaluation and treatment. HOSPITAL COURSE: s/p Sepsis - 2/2 UTI - s/p completion of antibiotics s/p Decompensated Systolic CHF - AICD placement 2 years ago - Currently well compensated - ECHO 11/05: Dilated severely globally hypokinetic left ventricle with overall estimated LVEF 10-15%. - Will resume diuresis with Torsemide as outpatient Hx of Cholangitis - s/p ERCP 11/18; replacement of biliary stent s/p CHARLIE on CKD3 DM2 - c/w ISS GERD - c/w Protonix Atrial fibrillation - c/w rate control with carvedilol - c/w full anticoagulation with Eliquis s/p Epistaxis Gout - c/w Allopurinol DVT prophylaxis - c/w full anticoagulation with Eliquis on discharge DISCHARGE MEDICATIONS: Please see below. ALLERGIES: Please see below. PHYSICAL EXAMINATION ON DISCHARGE: Vitals (See below) General: Lying in bed, no acute distress, comfortable, AAOx3 HEENT: NC, AT CVS: RRR, +S1S2 Lungs: Fair air entry b/l, -w/r/r Abdomen: Soft, ND, NT Extremities: - Edema, - Calf tenderness LABORATORY DATA: Please see below. ACTIVITY: [As tolerated]. DISCHARGE PLAN: Follow up with Dr. Yadi Gaona, Dr. Biswas and Dr. Justice within 7 days Remain compliant with treatment plan and medications Return to the ER if you experience any problems DISPOSITION: Home DISCHARGE CONDITION: [Stable]. TIME SPENT ON DISCHARGE: Greater than [35] minutes. Vital Signs/I&Os Vital Signs Date Time Temp Pulse Resp B/P (MAP) Pulse Ox O2 Delivery O2 Flow Rate FiO2 11/19/18 08:46 89 112/62 11/19/18 08:00 97.1 18 95 11/17/18 18:15 Room Air 11/13/18 00:00 8.0 I&O- Last 24 Hours up to 6 AM 11/19/18 06:00 Intake Total 1280 ml Output Total 1800 ml Balance -520 ml Laboratory Data Labs 24H Laboratory Tests 2 11/18/18 17:10: Bedside Glucose (Misc Panel) 184H 11/18/18 21:25: Bedside Glucose (Misc Panel) 194H 11/19/18 05:33: Nucleated Red Blood Cells % (auto) 0.0, Anion Gap 8, Glomerular Filtration Rate > 60.0, Blood Urea Nitrogen 24H, Creatinine 1.30, Sodium Level 134L, Potassium Level 4.0, Chloride Level 96L, Carbon Dioxide Level 30, Calcium Level 8.5L 11/19/18 11:52: Bedside Glucose (Misc Panel) 143H CBC/BMP Laboratory Tests 11/19/18 05:33 Red Blood Count 5.44, Mean Corpuscular Volume 77.8 L, Mean Corpuscular Hemoglobin 25.0 L, Mean Corpuscular Hemoglobin Concent 32.2, Red Cell Distribution Width 21.3 H, Calcium Level 8.5 L FSBS Laboratory Tests Test 11/18/18 17:10 11/18/18 21:25 11/19/18 11:52 Range/Units Bedside Glucose (Misc Panel) 184 194 143 83-110 MG/DL Discharge Medications Scheduled (Addison Fletcher) 300 Unit/Ml Inj, 10 UNITS SC QHS, (Reported) Allopurinol (Allopurinol) 100 Mg Tab, 100 MG PO DAILY, (Reported) Apixaban Base (Eliquis) 5 Mg Tab, 5 MG PO BID, (Reported) Aspirin (Aspirin 81) 81 Mg Tab, 81 MG PO QHS, (Reported) Calcitriol (Calcitriol) 0.25 Mcg Cap, 0.25 MCG PO 3XW, (Reported) MON,WED,FRI Carvedilol (Carvedilol) 12.5 Mg Tab, 12.5 MG PO BID Pantoprazole Sodium (Pantoprazole Sodium) 40 Mg Tab, 40 MG PO DAILY Sacubitril/Valsartan (Entresto 24-26 mg) 1 Tab Tab, 1 TAB PO BID Sitagliptin (Januvia) 50 Mg Tab, 50 MG PO DAILY, (Reported) Spironolactone (Spironolactone) 25 Mg Tab, 12.5 MG PO DAILY Torsemide (Torsemide) 100 Mg Tab, 100 MG PO DAILY Scheduled PRN Diclofenac Sodium (Diclofenac Sodium) 1 % Gel, 2-4 GRAMS TOP TID PRN for PAIN, (Reported) APPLY TO EACH KNEE Fluticasone Propionate (Fluticasone Propionate) 50 Mcg/Act Spr, 1 SPRAY NA BID PRN for NASAL CONGESTION, (Reported) Allergies Coded Allergies: No Known Allergies (Unverified , 11/05/18) LIBBY NY MD Nov 19, 2018 17:13
== END 2018-11-19 15:32 | disposition home health service (06) | DRG 871 ==
LOC: M ED 04:35 → M ED INP 12:05 → M PCU 15:25
PROVIDERS: ADMIT Family Medicine; ATTEND Internal Medicine
PROC: BF11YZZ Fluoroscopy of Biliary and Pancreatic Ducts using Other Contrast (ICD-10-PCS; 2018-11-17)
PROC: 0FH Hepatobiliary System and Pancreas, Insertion (ICD-10-PCS; principal; 2018-11-17 15:00)
DX: A41.9 Sepsis, unspecified organism (principal); I50.23 Acute on chronic systolic (congestive) heart failure; N17.9 Acute kidney failure, unspecified; N39.0 Urinary tract infection, site not specified; E87.2 Acidosis; I13.0 Hypertensive heart and chronic kidney disease with heart failure and stage 1 through stage 4 chronic kidney disease, or unspecified chronic kidney disease; N18.3 Chronic kidney disease, stage 3 (moderate); K81.1 Chronic cholecystitis; M10.9 Gout, unspecified; K21.9 Gastro-esophageal reflux disease without esophagitis; I48.91 Unspecified atrial fibrillation; E11.649 Type 2 diabetes mellitus with hypoglycemia without coma; E66.01 Morbid (severe) obesity due to excess calories; Z79.899 Other long term (current) drug therapy; Z79.82 Long term (current) use of aspirin; Z79.01 Long term (current) use of anticoagulants; Z96.651 Presence of right artificial knee joint; Z96.652 Presence of left artificial knee joint; F41.9 Anxiety disorder, unspecified; Z95.0 Presence of cardiac pacemaker; E87.5 Hyperkalemia; R04.0 Epistaxis; B96.29 Other Escherichia coli [E. coli] as the cause of diseases classified elsewhere; I25.5 Ischemic cardiomyopathy

== ENCOUNTER → 2019-01-19 | Outpatient (REF) | payer MEDICARE, MEDICAID ==
[~2019-01-19] MED LIST changes: -ASPI1TAB PO; +ASPI81TA26 PO; +CALC1CAP31 PO; +CARV6.25 PO; +ENTR1TAB PO; +FLUTISP; +PANT40TA3 PO
== END ==
LOC: M SFHCPLAZ 09:31
PROVIDERS: ATTEND Family Medicine
DX: I50.42 Chronic combined systolic (congestive) and diastolic (congestive) heart failure (principal)
CPT/HCPCS: 87880; G0463

== ENCOUNTER → 2019-05-27 | Outpatient (CLI) | payer MEDICARE, MEDICAID ==
--- NOTE | 2019-05-27 09:16 | REP ---
LIMITED ABDOMEN ULTRASOUND: 05/27/2019 CLINICAL HISTORY: Right lower quadrant pain and bulging. COMPARISON: 11/05/2018 and 10/24/2018 ultrasound, 11/05/2018 CT. FINDINGS: Sonographic evaluation of the right lower quadrant in the region of bulging tissue again shows edema similar to the prior study. There is some fluid tracking within the subcutaneous fat, similar to the previous studies but no abscess pattern. No visible solid mass. IMPRESSION: 1. Soft tissue edema in the subcutaneous fat in the right lower quadrant in the region that is bulged. No mass or finding to suggest definite abscess. Appearance unchanged from the two studies 7 months ago. Electronically Signed by Doc Charlton MD 05/27/2019 09:20 A
== END ==
LOC: M RAD 08:14
PROVIDERS: ATTEND Family Medicine
DX: R10.31 Right lower quadrant pain (principal)

== ENCOUNTER → 2019-06-22 | Outpatient (REF) | payer MEDICARE, MEDICAID | LOC: M SFHCPLAZ 20:05 | PROVIDERS: ATTEND Family Medicine | DX: L81.4 Other melanin hyperpigmentation (principal) | CPT/HCPCS: 88305; G0463 ==

== ENCOUNTER 2019-08-01 19:08 | Inpatient (IN) | payer MEDICARE, MEDICAID ==
[~2019-08-01] VITALS: Ht 190.5 cm; Wt 125.2 kg
[2019-08-01] MEDS ORDERED: DIGOXIN INJ 0.5 MG/2 ML AMP (J1160) IV STA (19:31)
[2019-08-01] MEDS ORDERED: LANCMIS (20:00)
[2019-08-01] MEDS ORDERED: FEBU80TA PO (20:00)
[2019-08-01 20:02] LABS: BASO # 0.1 10^3/uL (0.0-0.2); BASO % 0.6 % (0.0-1.0); EOS # 0.1 10^3/uL (0.0-0.5); EOS % 0.5 % (0.0-3.0); HEMATOCRIT 48.9 % (42.0-52.0); HEMOGLOBIN 15.4 g/dl (13.5-17.5); LYMPH # 1.1 10^3/uL (1.5-5.0); MEAN CORPUSCULAR HEMOGLOBIN 25.5 pg (27.0-33.0); MEAN CORPUSCULAR HGB CONC 31.5 g/dl (32.0-36.5); MEAN CORPUSCULAR VOLUME 81.1 fl (80.0-96.0); MONO % 7.2 % (0.0-5.0); NEUTROPHILS # 11.1 10^3/uL (1.5-8.5); NEUTROPHILS % 83.2 % (36.0-66.0); PLATELET COUNT, AUTOMATED 262 10^3/uL (150-450); RED BLOOD COUNT 6.03 10^6/uL (4.30-6.10); WHITE BLOOD COUNT 13.3 10^3/uL (4.0-10.0)
[2019-08-01] MEDS ORDERED: METOPROLOL 5 MG/5 ML VIAL IV STA (20:07)
[2019-08-01] MEDS ORDERED: METOPROLOL 5 MG/5 ML VIAL As Ordered ONE (20:08)
[2019-08-01] MEDS ORDERED: FUROSEMIDE 100 MG/10 ML VIAL (J1940) IV ONE (20:15)
[2019-08-01 20:27] LABS: INFLUENZA A AMPLIFICATION NEGATIVE (NEGATIVE); INFLUENZA B AMPLIFICATION NEGATIVE (NEGATIVE)
[2019-08-01 20:29] LABS: BLOOD UREA NITROGEN 28 MG/DL (7-18); CALCIUM LEVEL 9.5 MG/DL (8.8-10.2); CARBON DIOXIDE LEVEL 30 MEQ/L (21-32); CHLORIDE LEVEL 93 MEQ/L (98-107); CK-MB VALUE MASS < 1.0 NG/ML (<3.6); CPK CREATINE PHOSPHOKINASE 52 U/L (39-308); GLOMERULAR FILTRATION RATE 40.1 (>42); GLUCOSE, FASTING 254 MG/DL (70-100); MB/CK RELATIVE INDEX 1.92 (< OR =4); NT-PRO BNP 10966 PG/ML (<125); POTASSIUM SERUM 5.3 MEQ/L (3.5-5.1); SODIUM LEVEL 132 MEQ/L (136-145); TROPONIN I < 0.02 NG/ML (< 0.10)
[2019-08-01] MEDS ORDERED: APIXABAN 5 MG TAB (ELIQUIS) PO ONE ×2 (20:30→20:45)
[2019-08-01] MEDS ORDERED: METOPROLOL TART 25 MG TABLET As Ordered ONE (20:39)
[2019-08-01] MEDS ORDERED: DEXTROSE 50% 50 ML SYRINGE IV PRN (20:45)
[2019-08-01] MEDS ORDERED: GLUCOSE 4 GM CHEW TABLET PO PRN (20:45)
[2019-08-01] MEDS ORDERED: GLUCAGON FOR INJ 1 MG VIAL (J1610) SC PRN (20:45)
[2019-08-01] MEDS ORDERED: METOPROLOL TART 25 MG TABLET PO ONE (20:45)
[2019-08-01] MEDS ORDERED: ACETAMINOPHEN TAB 650MG DOSE (2X325MG) PO PRN (20:45)
[2019-08-01] MEDS: HumaLOG INSULIN (NovoLOG) PER UNIT SC SCH (21:00)
[2019-08-01] MEDS ORDERED: CARV12.5 PO (21:03)
[2019-08-01] MEDS ORDERED: ENTR1TAB PO (21:03)
[2019-08-01] MEDS ORDERED: TORS100T PO (21:04)
[2019-08-01 21:17] LABS: HEMOGLOBIN A1c 7.9 %
[2019-08-01 21:50] VITALS: BP 166/89
[2019-08-01] MEDS ORDERED: FLUTICASONE PROP 0.05% NASAL SPRAY 16 GM (FLONASE) PRN (22:30)
--- NOTE | 2019-08-01 22:31 | HPEPDOC ---
[facility] Medical History & Physical Date of Admission Aug 01, 2019 Date of Service: Aug 01, 2019 Attending Physician: HU MCGINNIS MD History and Physical CC: SOB HISTORY OF PRESENT ILLNESS: This is a 73-year-old male who, presents with complaint of shortness of breath that started earlier this afternoon that was accompanied by a cough, that was non productive. He has had prior admissions for decompensated heart failure, patient states this feels the same way. He denies any recent fevers, chest pain, or any palpitations. He does admit to missing his medication due to running out; his pharmacy did not ship his meds over the weekend. REVIEW OF SYSTEMS: CONSTITUTIONAL: No fevers, denies chills, denies weight loss, denies lethargy CARDIOVASCULAR: No murmurs no palpitations and arrhythmias RESPIRATORY: Admits to cough, and shortness of breath GASTROINTESTINAL: No nausea, no vomiting, no difficulty swallowing, no pain with eating, no diarrhea HEMATOLOGICAL: No bleeding GENITOURINARY:No Issues HEMATOLOGIC/LYMPHATIC: No swelling, No bleeding PAST MEDICAL /SURGICAL HISTORY: Chronic systolic congestive heart failure (ejection fraction of 10% s/p Implantable cardioverter defibrillator (ICD) placement) Implantable cardioverter/defibrillator Chronic kidney disease stage 3 Morbid obesity Atrial fibrillation Diabetes mellitus s/p biliary stent placement s/p bilateral total knee replacements s/p inguinal hernia repair SOCIAL HISTORY: Denies tobacco use FAMILY HISTORY: CAD/ myocardial infarction (MA) Liver cirrhosis. ALLERGIES: Please see below. HOME MEDICATIONS: Please see below. PE VITAL SIGNS: see below GENERAL APPEARANCE: -[place] gentleman, pleasant, in no apparent d istress, speaking in full sentences HEENT: Pupils round and reactive to light, no JVD, SKIN: Warm, well perfused. LUNGS: Clear to auscultation bilaterally. HEART: Normal S1, S2. No murmurs, no rubs, no gallops ABDOMEN: Soft. No masses. Bowel sounds are present. TRUNK/SPINE:Straight. EXTREMITIES: Moves all extremities equally. No gross deformities. 1+ pitting edema PULSES: 2+ upper and lower extremity . VIEW OF SYSTEMS: LABORATORY DATA: See below. MICROBIOLOGY: Please see below. ASSESSMENT/PLAN: is a 74-year-old gentleman with a past medical history significant for severe systolic heart failure with an ejection fraction of 10-15%, AICD, diabetes, and Afib, who presents with shortness of breath and cough likely 2/2 Acute Systolic CHF in the setting of missing his dose of metoprolol due to not getting his refill. 1. Decompensated severe systolic CHF -2/2 missed medication, -Revised prior echo:11/05/18: Dilated severely globally hypokinetic left ventricle with overall estimated LVEF 10-15%. [place] [address] [place] -Clinically patients looks uncompensated -Strict I's and O -Daily weights -2000 mL fluid restriction - 2 g sodium diet -80 mg of IV lasix daily -Continue beta jerel -Continue Entresto -Supplemental oxygen -will need repeat BNP prior to discharge for prognostic purposes -Follow up with PCP one week after discharge to help prevent hospial readmission 2. A. fib with RVR, -secondary to missing medication -improved after receiving metoprolol -Negative troponins, -Continue home meds including metoprolol and eliquis 3. CHARLIE on CKD stage 3 -CHARLIE secondary to cardiorenal syndrome -will not give IVF to avoid making acute CHF worse -follow up Renal Ultrasound -follow up urine urea and urine creatinine to calculate Fractional Excretion of Urea 4. SIRS -Patient meets criteria for SIRS due elevated heart rate likely due to rebound tachycardia due to missing beta jerel, -Lactic acidosis (3.7) is most likely due to poor circulation, will repeat lactic acid tomorrow morning -leukocytosis may be reactive -No need for antibiotics as the negative influenza panel and chest x-ray are unrevealing -Unable to tolerate a fluid bolus due to current decompensated systolic heart failure 5. Non-ion gap metabolic acidosis, cause unclear -Will continue monitor 6. Hyponatremia -secondary to decompensated heart failure, -Continue diuresis -Continue to monitor 7. Pseudo-hyperkalemia -Sample was hemolyzed -Will repeat in the a.m. 8. Insulin Dependent.Diabetes. -f/u serum glucose -Continue long acting insulin (levemir 10 units) with sliding scale insulin -hypoglycemia protocol 9. Gout -continue with allopurinol 10.Obesity -BMI 35 -complicates care -since he has DM he is a candidate for bariatric surgery -he can follow up with his PCP for STOP bang questionnaire, decker operator referral and referral to a bariatric surgeon Deep venous thrombosis (DVT) prophylaxis with -Abelino Greene anticipate he will be ready to go home in 3 days or so Vital Signs Vital Signs Date Time Temp Pulse Resp B/P (MAP) Pulse Ox O2 Delivery O2 Flow Rate FiO2 08/01/19 21:50 98.3 83 20 166/89 (114) 99 Nasal Cannula 3.0 Laboratory Data Labs 24H Laboratory Tests 2 08/01/19 19:37: Immature Granulocyte % (Auto) 0.5, Neutrophils (%) (Auto) 83.2H, Lymphocytes (%) (Auto) 8.0L, Monocytes (%) (Auto) 7.2H, Eosinophils (%) (Auto) 0.5, Basophils (%) (Auto) 0.6, Neutrophils # (Auto) 11.1H, Lymphocytes # (Auto) 1.1L, Monocytes # (Auto) 1.0H, Eosinophils # (Auto) 0.1, Basophils # (Auto) 0.1, Nucleated Red Blood Cells % (auto) 0.0, Anion Gap 9, Glomerular Filtration Rate 40.1L, Estimated Mean Plasma Glucose 180H, Hemoglobin A1c 7.9, Calcium Level 9.5, Total Creatine Kinase 52, Creatine Kinase MB < 1.0, Creatine Kinase MB Relative Index 1.92, Troponin I < 0.02, IU-Apv-T-Type Natriuretic Peptide 54855F, Influenza Type A (RT-PCR) NEGATIVE, Influenza Type B (RT-PCR) NEGATIVE CBC/BMP Laboratory Tests 08/01/19 19:37 Home Medications Scheduled Apixaban (Eliquis) 5 Mg Tab, 5 MG PO BID Aspirin (Aspirin EC) 81 Mg Tab, 81 MG PO QHS Calcitriol (Calcitriol) 0.25 Mcg Cap, 0.25 MCG PO 3XW MON,WED,FRI Carvedilol (Carvedilol) 12.5 Mg Tablet, 12.5 MG PO BID Febuxostat (Febuxostat) 80 Mg Tablet, 80 MG PO DAILY Insulin Glargine,Hum.rec.anlog (Toujeo Solostar) 300 Unit/Ml Inj, 10 UNITS SC QHS Sacubitril/Valsartan (Entresto 24 mg-26 mg Tablet) 1 Each Tablet, 1 TAB PO BID Sitagliptin (Januvia) 50 Mg Tab, 50 MG PO DAILY Torsemide (Torsemide) 100 Mg Tablet, 100 MG PO DAILY Scheduled PRN Fluticasone Propionate (Fluticasone Propionate) 50 Mcg/Act Spr, 1 SPRAY NA BID PRN for NASAL CONGESTION Allergies Coded Allergies: No Known Allergies (Unverified , 11/05/18) GME ATTESTATION GME ATTESTATION My faculty preceptor for this patient encounter was physically present during the encounter and was fully available. All aspects of the patient interview, examination, medical decision making process, and medical care plan development were reviewed and approved by the faculty preceptor. The faculty preceptor is aware and concurs with the plan as stated in the body of this note and will attest to such by his/her cosignature. ATTENDING NOTE I examined at 850PM and discussed the case with HANK Brunner DO Aug 01, 2019 22:30 HU MCGINNIS MD Aug 02, 2019 00:48
[2019-08-01] MEDS: ENTRESTO 24-26MG TABLET (SACUBITRIL/VALSARTAN) PO SCH (23:13)
[2019-08-01] MEDS: ASPIRIN 81 MG ENTERIC TAB PO SCH (23:13)
[2019-08-01] MEDS: CARVedilol 12.5 MG TAB PO SCH (23:14)
[2019-08-02] VITALS (7 sets, daily range): BP systolic 105–125; BP diastolic 57–85
[2019-08-02] MEDS: LEVEMIR (INSULIN DETEMIR) 1 UNITS/0.01ML SC SCH ×2 (02:17→21:29)
[2019-08-02 05:30] LABS: HEMATOCRIT 41.7 % (42.0-52.0); MEAN CORPUSCULAR HEMOGLOBIN 25.3 pg (27.0-33.0); MEAN CORPUSCULAR HGB CONC 31.9 g/dl (32.0-36.5); MEAN CORPUSCULAR VOLUME 79.3 fl (80.0-96.0); PLATELET COUNT, AUTOMATED 212 10^3/uL (150-450); RED BLOOD COUNT 5.26 10^6/uL (4.30-6.10); WHITE BLOOD COUNT 11.6 10^3/uL (4.0-10.0)
[2019-08-02 05:39] LABS: HEMOGLOBIN 13.3 g/dl (13.5-17.5)
[2019-08-02 05:55] LABS: CALCIUM LEVEL 8.9 MG/DL (8.8-10.2); CREATININE FOR GFR 1.5 MG/DL (0.70-1.30); MAGNESIUM LEVEL 1.9 MG/DL (1.8-2.4); POTASSIUM SERUM 4.1 MEQ/L (3.5-5.1)
--- NOTE | 2019-08-02 08:12 | REPVR ---
PROCEDURE INFORMATION: Exam: US Retroperitoneal Limited, Kidneys Exam date and time: 08/02/2019 6:46 AM Clinical history: 74 years old, male; Abnormal findings; Abnormal lab test; Abnormal function test of other organs/systems; Additional info: Adilson TECHNIQUE: Imaging protocol: Real-time ultrasound of the retroperitoneum with image documentation. Examination was focused on the kidneys. COMPARISON: GALLBLADDER US 11/05/2018 8:28 AM FINDINGS: Right kidney: The right kidney measures 13.5 x 4.7 x 6.8 cm. There is no right renal mass, stone, cyst or hydronephrosis. Left kidney: The left kidney measures 13.7 x 5.1 x 6.8 cm. There is no left renal mass, stone, or hydronephrosis. There is a 1.5 x 1.2 x 1.5 cm left lower pole cortical not clearly defined hypoechogenicity. IMPRESSION: 1. No sonographic evidence of hydronephrosis. 2. 1.5 x 1.2 x 1.5 cm left lower renal pole cortical hypoechogenicity possibly cyst. However all imaging features of simple cyst are not exhibited or shown by the technologist on this exam. The cyst was not described on CT of the abdomen and pelvis from 09/14/2018, the report of which is only available now and the images are not available for comparison. Direct comparison to the CT scan of 07/15/2018 is suggested. Electronically signed by: Wander Omer On 08/02/2019 08:12:03 AM
[2019-08-02] MEDS: ENTRESTO 24-26MG TABLET (SACUBITRIL/VALSARTAN) PO SCH ×2 (08:15→21:29)
[2019-08-02] MEDS: APIXABAN 5 MG TAB (ELIQUIS) PO SCH ×2 (08:15→21:27)
[2019-08-02] MEDS: CARVedilol 12.5 MG TAB PO SCH ×3 (08:15→21:28)
[2019-08-02] MEDS: HumaLOG INSULIN (NovoLOG) PER UNIT SC SCH ×4 (08:16→21:00)
[2019-08-02] MEDS: FUROSEMIDE 100 MG/10 ML VIAL (J1940) IV SCH (08:16)
[2019-08-02] MEDS ORDERED: TORSEMIDE 100 MG TAB PO SCH (09:00)
[2019-08-02] MEDS ORDERED: SITagliptin 50 MG TAB (JANUVIA) PO SCH (09:00)
[2019-08-02] MEDS ORDERED: FLUBLOK(EGG FREE)(QUAD)INFLUENZA VACC 0.5ML SYRINGE (90682)18YRS&OLDER IM ONE (09:00)
--- NOTE | 2019-08-02 11:15 | REP ---
CHEST, PORTABLE: AP portable view of the chest is performed and compared to prior study of 11/05/2018. There is cardiomegaly. There is no acute infiltrate. There is mild elevation of the right hemidiaphragm, unchanged. There is calcification of the thoracic aorta. The mediastinal silhouette is unchanged. Left pacemaker is again noted. IMPRESSION: Mild cardiomegaly. No acute infiltrate. Electronically Signed by Sinan Resendez MD 08/02/2019 12:35 P
--- NOTE | 2019-08-02 12:28 | IPNPDOC ---
Subjective Date Seen The patient was seen on 08/02/19. Subjective Chief Complaint/HPI Feels better this morning. He is not needing any oxygen this morning. Says had good urine output. He is in negative balance. No fever or chills, no chest pain or cough or phlegm. Objective Physical Examination General Exam: Positive: Alert, Cooperative, No Acute Distress Eye Exam: Positive: PERRLA, Conjunctiva & lids normal, EOMI; Negative: Sclera icteric ENT Exam: Positive: Atraumatic, Mucous membr. moist/pink, Pharynx Normal Neck Exam: Positive: Supple; Negative: JVD, thyromegaly Chest Exam: Positive: Clear to auscultation, Diminished Heart Exam: Positive: Rate Normal, Irregular Rhythm, Normal S1, Normal S2; Negative: Murmurs, Rubs Telemetry: Positive: Atrial fibrillation, PVCs Abdomen Exam: Positive: Normal bowel sounds, Soft; Negative: Tenderness, Hepatospenomegaly Extremity Exam: Negative: Clubbing, Cyanosis, Edema Skin Exam: Positive: Nl turgor and temperature; Negative: Rash, Breakdown Assessment /Plan Assessment Patient is a 74-year-old gentleman with a past medical history significant for severe systolic heart failure with an ejection fraction of 10-15%, AICD, diabetes, Afib, obesity, ckd stage 3, gout who presents with shortness of breath and cough likely 2/2 Acute Systolic CHF in the setting of missing his dose of metoprolol due to not getting his refill. Decompensated severe systolic CHF 2/2 missed medication Causing precipitation of his Afib with rvr and the uncontrolled heart rate probably precipitated his decompensation. Revised prior echo:11/05/18: Dilated severely globally hypokinetic left ventricle with overall estimated LVEF 10-15%. Strict I's and O, Daily weights Fluid restriction 1500 cc. 2 gm sodium diet 80 mg of IV lasix daily Continue beta jerel Continue Entresto A. fib with RVR, secondary to missing medication improved after receiving metoprolol iv and po and digoxin iv. Negative troponins, no sign of [place], PE unlikely, restarted metoprolol in the ED Continue home meds including coreg and eliquis Lacticacidosis due to increased work of breathing from CHF exacerbation now resolved. Acute on chronic stage 3 CKD CHARLIE secondary to cardiorenal syndrome from decompensation of his CHF. renal US negative. Hyponatremia, secondary to decompensated heart failure, Continue diuresis Continue to monitor Insulin Dependent.Diabetes. Continue long acting insulin (levemir 10 units) with sliding scale insulin hypoglycemia protocol Gout continue with allopurinol Obesity BMI 35 complicates care since he has DM he is a candidate for bariatric surgery he can follow up with his PCP for STOP bang questionnaire, electrical software engineer referral and referral to a bariatric surgeon Deep venous thrombosis (DVT) prophylaxis with Eliquis Plan/VTE VTE Prophylaxis Ordered?: Yes VS, I&O, 24H, Fishbone Vital Signs/I&O Vital Signs Date Time Temp Pulse Resp B/P (MAP) Pulse Ox O2 Delivery O2 Flow Rate FiO2 08/02/19 08:19 68 105/64 08/02/19 08:00 97.4 18 93 Room Air 08/02/19 04:00 1.0 I&O- Last 24 Hours up to 6 AM 08/02/19 05:59 Intake Total 200 ml Output Total 1450 ml Balance -1250 ml Laboratory Data 24H LABS Laboratory Tests 2 08/01/19 19:37: Immature Granulocyte % (Auto) 0.5, Neutrophils (%) (Auto) 83.2H, Lymphocytes (%) (Auto) 8.0L, Monocytes (%) (Auto) 7.2H, Eosinophils (%) (Auto) 0.5, Basophils (%) (Auto) 0.6, Neutrophils # (Auto) 11.1H, Lymphocytes # (Auto) 1.1L, Monocytes # (Auto) 1.0H, Eosinophils # (Auto) 0.1, Basophils # (Auto) 0.1, Nucleated Red Blood Cells % (auto) 0.0, Anion Gap 9, Glomerular Filtration Rate 40.1L, Estimated Mean Plasma Glucose 180H, Hemoglobin A1c 7.9, Calcium Level 9.5, Total Creatine Kinase 52, Creatine Kinase MB < 1.0, Creatine Kinase MB Relative Index 1.92, Troponin I < 0.02, JM-Hol-G-Type Natriuretic Peptide 98703R, Influenza Type A (RT-PCR) NEGATIVE, Influenza Type B (RT-PCR) NEGATIVE 08/01/19 22:47: Bedside Glucose (Misc Panel) 218H 08/02/19 01:33: Lactic Acid Level 3.7*H 08/02/19 02:11: Bedside Glucose (Misc Panel) 236H 08/02/19 05:13: Nucleated Red Blood Cells % (auto) 0.0, Anion Gap 5L, Glomerular Filtration Rate 59.0, Lactic Acid Level 1.5, Calcium Level 8.9, Magnesium Level 1.9 08/02/19 09:00: Urine Random Urea Nitrogen 414 CBC/BMP Laboratory Tests 08/01/19 19:37 08/02/19 05:13 LEANN BEASLEY MD Aug 02, 2019 12:28
[2019-08-02] MEDS ORDERED: SLF 3 ML SYR IV PRN (14:30)
[2019-08-02] MEDS ORDERED: FUROSEMIDE 100 MG/10 ML VIAL (J1940) IV ONE (18:00)
[2019-08-02] MEDS: DEXTROMETHORPHAN 60MG/10ML SUSP 90ML BTL(DELSYM) PO PRN (18:19)
[2019-08-02] MEDS: ASPIRIN 81 MG ENTERIC TAB PO SCH (21:20)
[2019-08-02] MEDS: SLF 3 ML SYR IV SCH (21:33)
[2019-08-03] VITALS: BP 117/60
[2019-08-03 04:00] VITALS: BP 109/71
[2019-08-03] MEDS: SLF 3 ML SYR IV SCH ×2 (06:24→13:41)
[2019-08-03 06:47] LABS: BASO % 0.4 % (0.0-1.0); EOS # 0.1 10^3/uL (0.0-0.5); EOS % 1.1 % (0.0-3.0); HEMATOCRIT 45.8 % (42.0-52.0); HEMOGLOBIN 14.5 g/dl (13.5-17.5); LYMPH % 9.8 % (24.0-44.0); MEAN CORPUSCULAR HEMOGLOBIN 25.4 pg (27.0-33.0); MEAN CORPUSCULAR HGB CONC 31.7 g/dl (32.0-36.5); MEAN CORPUSCULAR VOLUME 80.4 fl (80.0-96.0); MONO # 0.8 10^3/uL (0.0-0.8); MONO % 7.7 % (0.0-5.0); NEUTROPHILS # 8.6 10^3/uL (1.5-8.5); NEUTROPHILS % 80.6 % (36.0-66.0); PLATELET COUNT, AUTOMATED 246 10^3/uL (150-450); WHITE BLOOD COUNT 10.6 10^3/uL (4.0-10.0)
[2019-08-03 07:12] LABS: BLOOD UREA NITROGEN 29 MG/DL (7-18); CALCIUM LEVEL 9.1 MG/DL (8.8-10.2); CARBON DIOXIDE LEVEL 33 MEQ/L (21-32); CHLORIDE LEVEL 100 MEQ/L (98-107); CREATININE FOR GFR 1.24 MG/DL (0.70-1.30); GLOMERULAR FILTRATION RATE > 60.0 (>42); GLUCOSE, FASTING 138 MG/DL (70-100); MAGNESIUM LEVEL 2.2 MG/DL (1.8-2.4); SODIUM LEVEL 136 MEQ/L (136-145)
[2019-08-03 08:00] VITALS: BP 109/69
--- NOTE | 2019-08-03 08:35 | DS.PDOC ---
Discharge Summary General Date of Admission Aug 01, 2019 at 20:45 Date of Discharge 08/03/19 Discharge Summary PROCEDURES PERFORMED DURING STAY: [None]. DISCHARGE DIAGNOSES: Decompensated Systolic CHF Afib with RVR Acute kidney injury on CKD Lacticacidosis Hyponatremia SECONDARY DIAGNOSIS: Systolic heart failure with an ejection fraction of 10-15%, AICD, diabetes, Afib, obesity, ckd stage 3, gout COMPLICATIONS/CHIEF COMPLAINT: Acute On Chronic Diastolic Chp. HISTORY OF PRESENT ILLNESS: please see history and physical HOSPITAL COURSE: Patient is a 74-year-old gentleman with a past medical history significant for severe systolic heart failure with an ejection fraction of 10- 15%, AICD, diabetes, Afib, obesity, ckd stage 3, gout who presents with shortness of breath and cough likely 2/2 Acute Systolic CHF in the setting of missing his dose of metoprolol due to not getting his refill. Decompensated severe systolic CHF 2/2 missed medication Causing precipitation of his Afib with rvr and the uncontrolled heart rate probably precipitated his decompensation. Revised prior echo:11/05/18: Dilated severely globally hypokinetic left ventricle with overall estimated LVEF 10-15%. Strict I's and O, Daily weights Fluid restriction 1500 cc. 2 gm sodium diet 80 mg of IV lasix daily Continue beta jerel Continue Entresto A. fib with RVR, secondary to missing medication improved after receiving metoprolol iv and po and digoxin iv. Negative troponins, no sign of NH, PE unlikely, restarted metoprolol in the ED Continue home meds including coreg and eliquis Lacticacidosis due to increased work of breathing from CHF exacerbation now resolved. Acute on chronic stage 3 CKD CHARLIE secondary to cardiorenal syndrome from decompensation of his CHF. renal US negative. Hyponatremia, secondary to decompensated heart failure, Continue diuresis Continue to monitor Insulin Dependent.Diabetes. Continue long acting insulin (levemir 10 units) with sliding scale insulin hypoglycemia protocol Gout continue with allopurinol Obesity BMI 35 complicates care since he has DM he is a candidate for bariatric surgery he can follow up with his PCP for STOP bang questionnaire, vehicle mechanic referral and referral to a bariatric surgeon DISCHARGE MEDICATIONS: Please see below. ALLERGIES: Please see below. PHYSICAL EXAMINATION ON DISCHARGE: VITAL SIGNS: Please see below. General Exam: Positive: Alert, Cooperative, No Acute Distress Eye Exam: Positive: PERRLA, Conjunctiva & lids normal, EOMI; Negative: Sclera icteric ENT Exam: Positive: Atraumatic, Mucous membr. moist/pink, Pharynx Normal Neck Exam: Positive: Supple; Negative: JVD, thyromegaly Chest Exam: Positive: Clear to auscultation, Diminished Heart Exam: Positive: Rate Normal, Irregular Rhythm, Normal S1, Normal S2; Negative: Murmurs, Rubs Telemetry: Positive: Atrial fibrillation, PVCs Abdomen Exam: Positive: Normal bowel sounds, Soft; Negative: Tenderness, Hepatospenomegaly Extremity Exam: Negative: Clubbing, Cyanosis, Edema Skin Exam: Positive: Nl turgor and temperature; Negative: Rash, Breakdown LABORATORY DATA: Please see below. ACTIVITY: [As tolerated]. DIET: carb consistent, 2 gram sodium diet, 1500 cc fluid restriction DISCHARGE PLAN: Home DISPOSITION: . DISCHARGE INSTRUCTIONS: PMD in 1 week Cardiology in 2 weeks DISCHARGE CONDITION: [Stable]. TIME SPENT ON DISCHARGE: 35 minutes. Vital Signs/I&Os Vital Signs Date Time Temp Pulse Resp B/P (MAP) Pulse Ox O2 Delivery O2 Flow Rate FiO2 08/03/19 08:00 97.6 71 18 109/69 (82) 96 Room Air 08/02/19 04:00 1.0 I&O- Last 24 Hours up to 6 AM 08/03/19 06:00 Intake Total 1330 ml Output Total 2175 ml Balance -845 ml Laboratory Data Labs 24H Laboratory Tests 2 08/02/19 09:00: Urine Random Urea Nitrogen 414 08/02/19 13:05: Bedside Glucose (Misc Panel) 199H 08/02/19 16:56: Bedside Glucose (Misc Panel) 231H 08/02/19 21:20: Bedside Glucose (Misc Panel) 160H 08/03/19 06:29: Bedside Glucose (Misc Panel) 137H 08/03/19 06:35: Immature Granulocyte % (Auto) 0.4, Neutrophils (%) (Auto) 80.6H, Lymphocytes (%) (Auto) 9.8L, Monocytes (%) (Auto) 7.7H, Eosinophils (%) (Auto) 1.1, Basophils (%) (Auto) 0.4, Neutrophils # (Auto) 8.6H, Lymphocytes # (Auto) 1.0L, Monocytes # (Auto) 0.8, Eosinophils # (Auto) 0.1, Basophils # (Auto) 0.0, Nucleated Red Blood Cells % (auto) 0.0, Anion Gap 3L, Glomerular Filtration Rate > 60.0, Calcium Level 9.1, Magnesium Level 2.2 CBC/BMP Laboratory Tests 08/03/19 06:35 FSBS Laboratory Tests Test 08/02/19 13:05 08/02/19 16:56 08/02/19 21:20 08/03/19 06:29 Range/Units Bedside Glucose (Misc Panel) 199 231 160 137 83-110 MG/DL Discharge Medications Scheduled Apixaban (Eliquis) 5 Mg Tab, 5 MG PO BID, (Reported) Aspirin (Aspirin EC) 81 Mg Tab, 81 MG PO QHS, (Reported) Calcitriol (Calcitriol) 0.25 Mcg Cap, 0.25 MCG PO 3XW, (Reported) SAT,SAT,SAT Carvedilol (Carvedilol) 12.5 Mg Tablet, 12.5 MG PO BID, (Reported) Febuxostat (Febuxostat) 80 Mg Tablet, 80 MG PO DAILY, (Reported) Insulin Glargine,Hum.rec.anlog (Toujeo Solostar) 300 Unit/Ml Inj, 10 UNITS SC QHS, (Reported) Sacubitril/Valsartan (Entresto 24 mg-26 mg Tablet) 1 Each Tablet, 1 TAB PO BID, (Reported) Sitagliptin (Januvia) 50 Mg Tab, 50 MG PO DAILY, (Reported) Torsemide (Torsemide) 100 Mg Tablet, 100 MG PO DAILY, (Reported) Scheduled PRN Fluticasone Propionate (Fluticasone Propionate) 50 Mcg/Act Spr, 1 SPRAY NA BID PRN for NASAL CONGESTION, (Reported) Allergies Coded Allergies: No Known Allergies (Unverified , 11/05/18) LEANN BEASLEY MD Aug 03, 2019 08:35
[2019-08-03] MEDS: APIXABAN 5 MG TAB (ELIQUIS) PO SCH (08:49)
[2019-08-03] MEDS: ENTRESTO 24-26MG TABLET (SACUBITRIL/VALSARTAN) PO SCH (08:49)
[2019-08-03] MEDS: FUROSEMIDE 100 MG/10 ML VIAL (J1940) IV SCH (08:49)
[2019-08-03 08:50] VITALS: BP 109/69
[2019-08-03] MEDS: HumaLOG INSULIN (NovoLOG) PER UNIT SC SCH ×2 (08:50→12:03)
[2019-08-03] MEDS: CARVedilol 12.5 MG TAB PO SCH (08:50)
[2019-08-03] MEDS: DEXTROMETHORPHAN 60MG/10ML SUSP 90ML BTL(DELSYM) PO PRN (08:58)
[2019-08-03] MEDS ORDERED: CALCITRIOL 0.25 MCG CAP (S0169) PO SCH (09:00)
[2019-08-03] MEDS ORDERED: FLUBLOK(EGG FREE)(QUAD)INFLUENZA VACC 0.5ML SYRINGE (90682)18YRS&OLDER IM ONE (09:00)
[2019-08-03 11:04] LABS: CREATININE CLEARANCE, URINE 84.1 ML/MIN (85-125); CREATININE, SERUM 1.2 MG/DL (0.6-1.3); CREATININE, URINE 67.6 MG/DL
[2019-08-03 12:00] VITALS: BP 116/54
--- NOTE | 2019-08-03 19:46 | ECGEPIP ---
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 : 1945 Requested By: SHALA CHANCE Order Number: [id number] Reading MD: Cherelle Correia Measurements Intervals [place] Rate: 138 P: [place]: 0 QRS: 241 QRSD: 133 T: 84 QT: 324 QTc: 491 Interpretive Statements ATRIAL FIBRILLATION WITH RAPID VENTRICULAR RESPONSE WITH ABERRANT CONDUCTION OR VENTRICUL VENTRICULAR PREMATURE COMPLEXES INTRAVENTRICULAR CONDUCTION DELAY POSSIBLE ANTERIOR MYOCARDIAL INFARCTION, OF INDETERMINATE AGE INFERIOR MYOCARDIAL INFARCTION, PROBABLY OLD LOW VOLTAGE LEFTWARD AXIS CW 11/05/[address] T WAVE CHANGES Electronically Signed on 08-03-2019 19:46:00 EDT by Cherelle Correia
== END 2019-08-03 16:24 | disposition home health service (06) | DRG 292 ==
LOC: M ED 19:08 → M ED INP 20:45 → M PCU 21:40
PROVIDERS: ADMIT Internal Medicine; ATTEND Internal Medicine Nephrology
DX: I50.23 Acute on chronic systolic (congestive) heart failure (principal); E87.2 Acidosis; N17.9 Acute kidney failure, unspecified; E87.1 Hypo-osmolality and hyponatremia; N18.3 Chronic kidney disease, stage 3 (moderate); M10.9 Gout, unspecified; E66.01 Morbid (severe) obesity due to excess calories; I48.91 Unspecified atrial fibrillation; Z91.14 Patient's other noncompliance with medication regimen; Z68.35 Body mass index [BMI] 35.0-35.9, adult; Z79.899 Other long term (current) drug therapy; Z79.82 Long term (current) use of aspirin; Z96.651 Presence of right artificial knee joint; Z96.652 Presence of left artificial knee joint; E87.5 Hyperkalemia

== ENCOUNTER 2019-11-09 20:19 | Emergency (ER) | payer MEDICARE, MEDICAID ==
[~2019-11-09] VITALS: Ht 188 cm; Wt 118.0 kg
[~2019-11-09 20:19] MED LIST changes: +FEBU80TA PO; +LANCMIS
[2019-11-09 22:57] VITALS: BP 139/87
== END 2019-11-09 23:03 | disposition home or self-care (01) ==
LOC: EDBD 20:19 → M ED 20:19
DX: R04.0 Epistaxis (principal); E11.9 Type 2 diabetes mellitus without complications; I11.0 Hypertensive heart disease with heart failure; Z79.02 Long term (current) use of antithrombotics/antiplatelets; Z79.4 Long term (current) use of insulin; Z79.899 Other long term (current) drug therapy

== ENCOUNTER → 2020-04-15 | Outpatient (CLI) | payer MEDICARE, MEDICAID ==
[~2020-04-15] MED LIST changes: -AMIO200T PO; +AMIO200T3 PO; +D31000TA2 PO; -FLUTISP; +FLUTISP NARES; +PANT40TA29 PO; -PANT40TA3 PO
[2020-04-15 15:29] LABS: HEMATOCRIT 49.1 % (42.0-52.0); HEMOGLOBIN 15.4 g/dl (13.5-17.5); MEAN CORPUSCULAR HEMOGLOBIN 24.7 pg (27.0-33.0); MEAN CORPUSCULAR HGB CONC 31.4 g/dl (32.0-36.5); MEAN CORPUSCULAR VOLUME 78.7 fl (80.0-96.0); PLATELET COUNT, AUTOMATED 203 10^3/uL (150-450); RED BLOOD COUNT 6.24 10^6/uL (4.30-6.10)
[2020-04-15 15:35] LABS: ALBUMIN 3.6 GM/DL (3.2-5.2); ALT/SGPT 16 U/L (12-78); BILIRUBIN,TOTAL 0.6 MG/DL (0.2-1.0); BLOOD UREA NITROGEN 23 MG/DL (7-18); CARBON DIOXIDE LEVEL 30 MEQ/L (21-32); CHLORIDE LEVEL 97 MEQ/L (98-107); CHOLESTEROL LEVEL 177 MG/DL (<200); CHOLESTEROL RISK RATIO 4.916 (<5); GLOMERULAR FILTRATION RATE > 60.0 (>42); GLUCOSE, FASTING 275 MG/DL (70-100); HDL CHOLESTEROL 36 MG/DL (>40); LDL CHOLESTEROL 112 MG/DL (<100); NON-HDL-C 141 MG/DL; POTASSIUM SERUM 3.9 MEQ/L (3.5-5.1); SODIUM LEVEL 133 MEQ/L (136-145); TOTAL PROTEIN 7.6 GM/DL (6.4-8.2); TRIGLYCERIDES LEVEL 146 MG/DL (<150); URIC ACID 4.2 MG/DL (3.5-7.2)
[2020-04-15 15:56] LABS: HEMOGLOBIN A1c 10.9 %
== END ==
LOC: M PLALAB 12:45
PROVIDERS: ATTEND Student in an Organized Health Care Education/Training Program
DX: E79.0 Hyperuricemia without signs of inflammatory arthritis and tophaceous disease (principal); E11.22 Type 2 diabetes mellitus with diabetic chronic kidney disease; I50.42 Chronic combined systolic (congestive) and diastolic (congestive) heart failure; Z13.220 Encounter for screening for lipoid disorders; Z79.82 Long term (current) use of aspirin

== ENCOUNTER → 2020-04-19 | Outpatient (REF) | payer MEDICARE, MEDICAID ==
[~2020-04-19] MED LIST changes: +AMIO200T PO; -AMIO200T3 PO; -D31000TA2 PO; +FLUTISP; -FLUTISP NARES; -PANT40TA29 PO; +PANT40TA3 PO
[2020-04-19 19:54] LABS: CREATININE, URINE 36.3 MG/DL; MALB URINE SIEMENS 21.1 MG/L; MAU/CREAT RATIO 58.1 MCG/MG (0.0-30.0)
== END ==
LOC: M SFHCPLAZ 14:53
PROVIDERS: ATTEND Student in an Organized Health Care Education/Training Program
DX: E11.22 Type 2 diabetes mellitus with diabetic chronic kidney disease (principal)

== ENCOUNTER → 2020-06-20 | Outpatient (CLI) | payer MEDICARE, MEDICAID ==
[~2020-06-20] MED LIST changes: -AMIO200T PO; +AMIO200T3 PO; +D31000TA2 PO; -FLUTISP; +FLUTISP NARES; +PANT40TA29 PO; -PANT40TA3 PO
--- NOTE | 2020-07-06 09:15 | REP ---
LIMITED ABDOMINAL ULTRASOUND CLINICAL: Right lower quadrant mass, rule out hernia. TECHNIQUE: Real-time mcknight scale and color evaluation using linear high frequency transducer. FINDINGS: Directed ultrasound examination overlying the palpable mass demonstrates heterogeneous subcutaneous tissue mildly edematous without focal discrete mass or fluid collection/abscess. No hernia is appreciated. IMPRESSION: The area in question demonstrates mildly heterogeneous, mildly edematous subcutaneous tissue without discrete lesion, collection, or hernia. MTDD
== END ==
LOC: M WHC 08:51
PROVIDERS: ATTEND Student in an Organized Health Care Education/Training Program
DX: R22.2 Localized swelling, mass and lump, trunk (principal)

== ENCOUNTER 2020-07-30 06:24 | Inpatient (IN) | payer MEDICARE, MEDICAID ==
[~2020-07-30] VITALS: Ht 188 cm; Wt 140.3 kg
[~2020-07-30 06:24] MED LIST changes: -D31000TA2 PO
[2020-07-30] MEDS ORDERED: ONDANSETRON 4MG/2ML VIAL IV ONE (07:15)
[2020-07-30] MEDS ORDERED: NS 500 ML IV ONE (07:15)
--- NOTE | 2020-07-30 07:46 | REP ---
INDICATION: dyspnea COMPARISON: 08/01/2019 TECHNIQUE: Portable AP view of the chest FINDINGS: The mediastinum and cardiac silhouette are stable with cardiomegaly again noted. Pacemaker in stable position. The lung caraballo demonstrate stable chronic interstitial changes. No focal consolidation, effusion, or pneumothorax identified. Skeletal structures are intact. IMPRESSION: Chronic stable changes. No focal consolidation or effusion. <Electronically signed by Zachary Saxena > 07/30/20 0746
[2020-07-30 07:47] LABS: BASO % 0.4 % (0.0-1.0); EOS % 0.4 % (0.0-3.0); HEMATOCRIT 47.6 % (42.0-52.0); HEMOGLOBIN 14.8 g/dl (13.5-17.5); LYMPH # 0.9 10^3/uL (1.5-5.0); LYMPH % 11.5 % (24.0-44.0); MEAN CORPUSCULAR HEMOGLOBIN 25.8 pg (27.0-33.0); MEAN CORPUSCULAR HGB CONC 31.1 g/dl (32.0-36.5); MEAN CORPUSCULAR VOLUME 82.9 fl (80.0-96.0); MONO # 0.6 10^3/uL (0.0-0.8); MONO % 8.1 % (0.0-5.0); NEUTROPHILS # 5.9 10^3/uL (1.5-8.5); NEUTROPHILS % 79.1 % (36.0-66.0); PLATELET COUNT, AUTOMATED 193 10^3/uL (150-450); RED BLOOD COUNT 5.74 10^6/uL (4.30-6.10); WHITE BLOOD COUNT 7.5 10^3/uL (4.0-10.0)
[2020-07-30 08:19] LABS: ALBUMIN 3.5 GM/DL (3.2-5.2); BILIRUBIN,DIRECT 0.3 MG/DL (0.0-0.2); TOTAL PROTEIN 7.6 GM/DL (6.4-8.2)
--- NOTE | 2020-07-30 08:30 | REP ---
INDICATION: RLQ abd pain COMPARISON: 11/05/2018 TECHNIQUE: Axial noncontrast images from the lung bases to the pubic symphysis with coronal and sagittal reformations. This CT examination was performed using the following dose reduction techniques: Automated exposure control, adjustment of mA and/or kv according to the patient's size, and use of iterative reconstruction technique. FINDINGS: Lung bases demonstrate cardiomegaly with dependent changes and small right pleural effusion. Liver demonstrates small element of pneumobilia including gas in the common bile duct and visible stent extending through the distal common bile duct into the duodenum. Evidence for prior cholecystectomy. Spleen, pancreas, bilateral adrenal glands are normal. Kidneys demonstrate chronic perinephric stranding with punctate left and right intrarenal calculi up to approximately 4 mm. There is no evidence for hydroureteronephrosis or obstructing ureteral calculi. The enteric system is without obstruction or acute inflammatory process. Colonic and sigmoid diverticulosis noted without acute diverticulitis. Fat stranding throughout the mesentery is essentially unchanged. No ascites. No free air. No significant adenopathy. Pelvis demonstrates partially collapsed normal bladder and mildly prominent prostate gland. No pelvic fluid. Atherosclerotic changes to the aorta noted without aneurysm. Musculoskeletal structures demonstrate degenerative changes without acute osseous abnormality. IMPRESSION: 1. Essentially chronic nonacute findings throughout the abdomen and pelvis as described above and similar to 11/05/2018. 2. Lung bases demonstrates small right pleural effusion with minimal dependent atelectasis and stable cardiomegaly. <Electronically signed by Zachary Saxena > 07/30/20 [id number]
[2020-07-30] MEDS ORDERED: D31000TA2 PO (08:53)
[2020-07-30] MEDS: PANTOPRAZOLE 40MG TAB (PROTONIX) PO SCH (09:00)
[2020-07-30] MEDS ORDERED: FAMOTIDINE 20 MG TAB PO ONE (09:15)
[2020-07-30] MEDS ORDERED: LEVALBUTEROL 1.25 MG/0.5 ML CONCENTRATE NEB NEB PRN (09:45)
--- NOTE | 2020-07-30 10:27 | REP ---
INDICATION: ? pulmonary hemorrhage COMPARISON: 07/16/2018 TECHNIQUE: Axial noncontrast images from the thoracic inlet to the upper abdomen with coronal and sagittal reformations. This CT examination was performed using the following dose reduction techniques: Automated exposure control, adjustment of mA and/or kv according to the patient's size, and use of iterative reconstruction technique. FINDINGS: Cardiomegaly is appreciated with prominent pulmonary vasculature, cephalization, minimal basilar dependent changes, and small right pleural effusion suggesting mild pulmonary vascular congestion/early CHF. Single lead pacemaker extending to the right ventricle noted. No significant pericardial effusion. No focal consolidation. No pneumothorax. Tracheobronchial tree is patent. No significant adenopathy. Osseous structures demonstrate age-related degenerative changes. Limited upper abdomen demonstrates normal bilateral adrenal glands and small amount of chronic pneumobilia. IMPRESSION: 1. Cardiomegaly with evidence for early CHF/pulmonary vascular congestion including small right pleural effusion <Electronically signed by Zachary Saxena > 07/30/20 1020
[2020-07-30 11:20] VITALS: BP 114/83
--- NOTE | 2020-07-30 12:00 | ECGEPIP ---
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
[2020-07-30] MEDS: CEPACOL LOZENGE MT PRN (12:07)
[2020-07-30 12:11] LABS: HEMATOCRIT 46.5 % (42.0-52.0); HEMOGLOBIN 14.4 g/dl (13.5-17.5); MEAN CORPUSCULAR HEMOGLOBIN 25.9 pg (27.0-33.0); MEAN CORPUSCULAR VOLUME 83.6 fl (80.0-96.0); PLATELET COUNT, AUTOMATED 184 10^3/uL (150-450); RED BLOOD COUNT 5.56 10^6/uL (4.30-6.10); WHITE BLOOD COUNT 7.1 10^3/uL (4.0-10.0)
[2020-07-30] MEDS ORDERED: GLUCOSE 4GM CHEW TABLET PO PRN (12:15)
[2020-07-30] MEDS ORDERED: DEXTROSE 50% 50 ML SYRINGE IV PRN (12:15)
[2020-07-30] MEDS ORDERED: GLUCAGON INJ 1MG VIAL SC PRN (12:15)
[2020-07-30] MEDS ORDERED: FLUTICASONE PROP 0.05% NASAL SPRAY 16 GM (FLONASE) NARES PRN (12:15)
[2020-07-30] MEDS ORDERED: NS 1,000 ML IV SCH (12:15)
[2020-07-30] MEDS: LEVALBUTEROL 1.25 MG/0.5 ML CONCENTRATE NEB NEB SCH ×4 (12:16→22:58)
[2020-07-30 13:01] LABS: INR 1.26; PROTHROMBIN TIME 16.1 SECONDS (12.5-14.3)
--- NOTE | 2020-07-30 13:02 | HPEPDOC ---
[facility] Medical History & Physical Date of Admission Jul 30, 2020 Date of Service: Jul 30, 2020 Attending Physician: Brianda Bennett MD History and Physical CHIEF COMPLAINT: Coughing up blood HISTORY OF PRESENT ILLNESS: The patient is a 74-year-old male with past medical history of systolic congest mile heart failure with ejection fraction of 10%, chronic atrial fibrillation, history of kidney stones, history of epistaxis, hypertension, diabetes mellitus who presented to [facility] emergency room with the chief complaint of coughing up blood for the past 2 weeks. According to the patient he went to see his primary care provider due to what he believed was an upper respiratory infection 5 weeks ago. Over the course the last 2 weeks he has noted intermittent bleeding with coughing. The patient did going to further detail and states that his coughing increases after eating but is not associated with abd pain or discomfort. Over the past 24 hours; however, the patient has had increased bleed ing with his coughing. He states several episodes last evening he coughed up one quarter of a cup of bright red blood. His other episodes of hemoptysis were approximately 23 tablespoons full. The patient has not been on eliquis for atrial fibrillation for almost 3 months but remains on aspirin daily. He denies chest pain, fevers, chills, rectal bleeding, diarrhea, abdominal pain. He admits to having increased shortness of breath over the past several weeks with increased congestion, wheezing and increased lower extremity swelling at times. At baseline the patient is edematous in the lower extremities. In the emergency room vital signs showed heart rate of 112, 94% on room air with stable blood pressure. CT abdomen and pelvis was negative. CTA of the chest was negative for acute findings. Occult blood negative, further causing suspicion for hemoptysis versus hematemesis. CG showed atrial fibrillation, BNP was 7000 and. When trending BNP last on file was 10,966 and the patient is chronically high. Last echo cart in [facility] on file showed ejection fraction of 10% in 2019. He follows with Dr. Ken, cardiology. Case was discussed with pulmonary who agrees possible hemoptysis and encouraging to stop aspirin and monitor closely. The patient was admitted for other management of acute hemoptysis, shortness of breath. REVIEW OF SYSTEMS: Neg except for what is mentioned above PAST MEDICAL HISTORY: 1. Systolic congestive heart failure with ejection fraction of 10% 2. Chronic atrial fibrillation 3. Hx of kidney stones 4. Hx of epistaxis 5. HTN 6. DM type II PAST SURGICAL HISTORY: 1. Right and left total knee replacement 2. AICD placement 3. Left inguinal hernia repair 4. Renal stent FAMILY HISTORY: Father: CAD, at 93 years old Mother: Stomach tumor. at 73 years old SOCIAL HISTORY: Eyes smoking, alcohol or drug use history. He lives locally with his family. Primary care provider is Dr. Jeffries. Rn Chronic is Dr. Ken. The patient states he has increased right inguinal pain and has not been able to walk much so he uses a scooter at home to ambulate. ALLERGIES: Please see below. HOME MEDICATIONS: Please see below. PHYSICAL EXAMINATION: VS: Please see below. CONSTITUTIONAL: No acute distress, resting comfortably, AAO x 3 EYES: PERRLA, EOM intact HENT, MOUTH: Normocephalic, atraumatic, moist mucous membranes NECK: SUPPLE, no JVD, no lymphadenopathy, no carotid bruit CV: irregularly irregular, rate controlled. S1S2 normal, no murmurs/rubs/gallops RESPIRATORY: mild wheezing, Clear to auscultation bilaterally, no rales/rhonchi/wheezes GI: obese abd, no inguinal hernia on exam, BS positive in 4 quadrants, soft, nontender, nondistended, no rebound or guarding, no organomegaly : Deferred MUSCULOSKELETAL: Normal ROM. No cyanosis, clubbing, swelling, joint deformity, +3 pitting extremity edema INTEGUMENTARY: Intact, no rashes, no lesions, no erythema NEUROLOGIC: Cranial Nerves II-XII are intact, no focal deficits PSYCHIATRIC: Mood and affect are normal LABORATORY DATA: Please see below Occult blood: Neg IMAGING: CXR: Chronic stable changes. No focal consolidation or effusion. CT chest: 1. Essentially chronic nonacute findings throughout the abdomen and pelvis as described above and similar to 11/05/2018. 2. Lung bases demonstrates small right pleural effusion with minimal dependent atelectasis and stable cardiomegaly. CT abd/pelvis: 1. Essentially chronic nonacute findings throughout the abdomen and pelvis as described above and similar to 11/05/2018. 2. Lung bases demonstrates small right pleural effusion with minimal dependent atelectasis and stable cardiomegaly. Last echo 2019: 1. Study is of limited technical quality. 2. Dilated severely globally hypokinetic left ventricle with overall estimated LVEF 10-15%. 3. Dilated hypokinetic right ventricle. 4. Severe biatrial enlargement. 5. Competent aortic valve. 6. Moderate mitral and tricuspid insufficiency. 7. Very high central venous pressure. 8. At least moderate and more likely moderately severe pulmonary hypertension. 9. ICD lead apparent in right-sided heart chambers. ASSESSMENT: 74-year-old male with past medical history of systolic congestive heart failure with ejection fraction of 10%, chronic atrial fibrillation, history of kidney stones, history of epistaxis, hypertension, diabetes mellitus admitted for close observation and management of acute hemoptysis, shortness of breath. PLAN: Acute hemoptysis poss 2/2 to increased coughing vs. lung/airway pathology not yet identified -Tachycardic; however, hemodynamically stable. -Not suspecting GI source of bleeding as no dark stool, occult neg. No prior hx of hemoptysis -2 episodes overnight of approx 1/4 cup and additional 4-5 episodes of 2-3 tablespoons -H/H stable -Type and screen, Q8H CBC, monitor closely on tele. -F/u COVID, influenza A&B -Started on robitussin with codeine, levoalbuterol ATC and PRN. Tranfuse PRN -Discussed case with Dr. Slade, pulmonary. At this time no indication for bronchoscopy. Will remove ASA, add cough suppressant and see if hemoptysis resolves. If bleeding should continue, will notify him. Acute kidney injury (CHARLIE) likely 2/2 to prerenal cause -Bleed, decreased PO intake -Cr 2.0, baseline Cr 1.2 -Stopping diuretics for now and hydrating gently with IVFs at 75 cc/hr. Careful not to overload with poor EF, CHF. -f/u daily labs Hyponatremia likely 2/2 to dehydration -Low chloride and CHARLIE with low sodium likely due to decreased PO intake of fluids and food. -Cannot aggressively hydrate due to CHF; however, on IVFs at 75 cc/hr. -Monitor labs daily. Shortness of breath likely 2/2 to chronic systolic CHF (EF 10%) and small pleural effusion -Currently on RA, saturating well and is likely close to his baseline respiratory status -BNP 7K; however, previously 10K and remains chronically elevated -Last echo above -Holding diuretics, entresto due to CHARLIE for now, gently hydrating. Monitor for signs of worsening fluid overload -C/w BB. 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 Right inguinal pain, chronic. Hx of left inguinal hernia repair. -States has pain intermittently that extends across pubis area, prohibits him from walking some days which is why he uses a scooter instead of ambulating. -Abd US 06/2020: The area in question demonstrates mildly heterogeneous, mildly edematous subcutaneous tissue without discrete lesion, collection, or hernia. -CT abd/pelvis above -No pain on exam, no fullness or area of protrusion with coughing. -Will order PT/OT to see if illicited again DM type II -BS uncontrolled >300. -Giving 10U Levemir now and will start QAM daily. C/w levemir 10 UHS -Starting ISS. While on CLD onlyl, doing Q6H FS and ISS. -F/u HbA1c. Atrial fibrillation, chronic -Rate controlled -C/w BB, not on AC HTN -Stable -C/w home meds, holding diuretics GI px -PPI DVT px -SCDs, teds. AC CI with hemoptysis DISPOSITION: Admitted under inpatient status. Pulmonary available if needed. When appropriate PT/OT and hopeful discharge home when medically cleared. Vital Signs Vital Signs Date Time Temp Pulse Resp B/P (MAP) Pulse Ox O2 Delivery O2 Flow Rate FiO2 07/30/20 10:57 97.6 97 20 138/63 (88) 95 07/30/20 06:37 Room Air Laboratory Data Labs 24H Laboratory Tests 2 07/30/20 07:30: Immature Granulocyte % (Auto) 0.5, Neutrophils (%) (Auto) 79.1H, Lymphocytes (%) (Auto) 11.5L, Monocytes (%) (Auto) 8.1H, Eosinophils (%) (Auto) 0.4, Basophils (%) (Auto) 0.4, Neutrophils # (Auto) 5.9, Lymphocytes # (Auto) 0.9L, Monocytes # (Auto) 0.6, Eosinophils # (Auto) 0.0, Basophils # (Auto) 0.0, Nucleated Red Blood Cells % (auto) 0.0, Total Bilirubin 1.0, Direct Bilirubin 0.3H, Aspartate Amino Transf (AST/SGOT) 14, Alanine Aminotransferase (ALT/SGPT) 27, Alkaline Phosphatase 76, ZU-Gsu-V-Type Natriuretic Peptide 7007H, Total Protein 7.6, Albumin 3.5, Albumin/Globulin Ratio 0.9, Lipase 52L 07/30/20 07:31: POC Glucose (Misc Panel) 327H, POC Sodium (Misc Panel) 128L, POC Potassium (Misc Panel) 5.4H, POC Chloride (Misc Panel) 89L, POC Total CO2 (Misc Panel) 29.0H, PO C Blood Urea Nitrogen (Misc Panel 45H, POC Ionized Calcium (Misc Panel) 4.4L, POC Lactate (Misc Panel) 1.67, POC Creatinine (Misc Panel) 2.0H, POC Hematocrit (Misc Panel) 50.0 07/30/20 07:54: POC Troponin I (Misc) 0.00 CBC/BMP Laboratory Tests 07/30/20 07:30 Home Medications Scheduled Aspirin (Aspirin EC) 81 Mg Tab, 81 MG PO QHS Carvedilol (Carvedilol) 12.5 Mg Tablet, 12.5 MG PO BID Cholecalciferol (Vitamin D3) (Vitamin D3) 1,000 Unit Tablet, 1,000 UNITS PO DAILY Febuxostat (Febuxostat) 80 Mg Tablet, 80 MG PO DAILY Insulin Glargine,Hum.rec.anlog (Toujeo Solostar) 300 Unit/Ml Inj, 10 UNITS SC QHS Sacubitril/Valsartan (Entresto 24 mg-26 mg Tablet) 1 Each Tablet, 1 TAB PO BID Sitagliptin (Januvia) 50 Mg Tab, 50 MG PO DAILY Torsemide (Torsemide) 100 Mg Tablet, 100 MG PO DAILY Scheduled PRN Fluticasone Propionate (Fluticasone Propionate) 50 Mcg/Act Spr, 1 SPRAY NARES BID PRN for NASAL CONGESTION Allergies Coded Allergies: No Known Allergies (Unverified , 11/09/19) A-FIB/CHADSVASC A-FIB History Current/History of A-Fib/PAF?: Yes Current PO Anticoag Therapy: No Age/Risk Factor Scoring CHADSVASC: CHADSVASC Response (Comments) Value Age Risk Factor Age 65-74 years old 1 Gender Risk Factor Male 0 Hx of CHF Yes 1 Hx of HTN Yes 1 Hx of Stroke/TIA/or VTE No 0 Hx of Diabetes Yes 1 Hx of Vascular Disease No 0 Total 4 Treatment Treatment ordered: NONE Other anticoagulant ordered: CI Reason Anticoagulant not given: Current bleeding Brianda Bennett MD Jul 30, 2020 12:57
[2020-07-30] MEDS: CARVedilol 12.5 MG TAB PO SCH ×2 (13:32→20:56)
[2020-07-30] MEDS: guaiFENesin/CODEINE SYRUP 5 ML UDC PO PRN (13:34)
[2020-07-30] MEDS: HumaLOG INSULIN (NovoLOG) PER UNIT SC SCH ×2 (13:34→18:55)
[2020-07-30 14:00] VITALS: BP 112/83
[2020-07-30] MEDS ORDERED: LEVEMIR (INSULIN DETEMIR) 1 UNITS/0.01ML SC ONE (14:00)
[2020-07-30 14:25] LABS: INFLUENZA A AMPLIFICATION NEGATIVE (NEGATIVE); INFLUENZA B AMPLIFICATION NEGATIVE (NEGATIVE)
[2020-07-30 15:17] LABS: HEMOGLOBIN A1c 10.2 %
[2020-07-30 16:00] VITALS: BP 114/83
[2020-07-30 18:00] VITALS: BP 114/83
[2020-07-30 18:43] LABS: HEMATOCRIT 45.1 % (42.0-52.0); HEMOGLOBIN 13.9 g/dl (13.5-17.5); MEAN CORPUSCULAR HEMOGLOBIN 25.7 pg (27.0-33.0); MEAN CORPUSCULAR HGB CONC 30.8 g/dl (32.0-36.5); MEAN CORPUSCULAR VOLUME 83.4 fl (80.0-96.0); PLATELET COUNT, AUTOMATED 189 10^3/uL (150-450); RED BLOOD COUNT 5.41 10^6/uL (4.30-6.10); WHITE BLOOD COUNT 7.2 10^3/uL (4.0-10.0)
[2020-07-30] MEDS: LEVEMIR (INSULIN DETEMIR) 1 UNITS/0.01ML SC SCH (20:41)
[2020-07-30 22:00] VITALS: BP 105/73
[2020-07-31] MEDS: HumaLOG INSULIN (NovoLOG) PER UNIT SC SCH ×5 (00:39→21:00)
[2020-07-31 01:31] LABS: HEMATOCRIT 45.4 % (42.0-52.0); HEMOGLOBIN 14.1 g/dl (13.5-17.5); MEAN CORPUSCULAR HEMOGLOBIN 25.9 pg (27.0-33.0); MEAN CORPUSCULAR HGB CONC 31.1 g/dl (32.0-36.5); MEAN CORPUSCULAR VOLUME 83.3 fl (80.0-96.0); PLATELET COUNT, AUTOMATED 174 10^3/uL (150-450); RED BLOOD COUNT 5.45 10^6/uL (4.30-6.10); WHITE BLOOD COUNT 7.8 10^3/uL (4.0-10.0)
[2020-07-31] MEDS ORDERED: RAMELTEON 8 MG TAB (ROZEREM) PO PRN (02:45)
[2020-07-31] MEDS: LEVALBUTEROL 1.25 MG/0.5 ML CONCENTRATE NEB NEB SCH ×6 (02:45→23:11)
[2020-07-31 03:30] VITALS: BP 103/72
[2020-07-31] MEDS ORDERED: ONDANSETRON 4MG/2ML VIAL IV PRN (03:30)
[2020-07-31 06:00] VITALS: BP 110/72
[2020-07-31 06:43] LABS: ALT/SGPT 30 U/L (12-78); BLOOD UREA NITROGEN 38 MG/DL (7-18); CALCIUM LEVEL 8.2 MG/DL (8.8-10.2); CARBON DIOXIDE LEVEL 30 MEQ/L (21-32); CHLORIDE LEVEL 96 MEQ/L (98-107); CREATININE FOR GFR 1.93 MG/DL (0.70-1.30); GLOMERULAR FILTRATION RATE 44.1 (>42); GLUCOSE, FASTING 135 MG/DL (70-100); POTASSIUM SERUM 4.7 MEQ/L (3.5-5.1); SODIUM LEVEL 131 MEQ/L (136-145)
[2020-07-31 06:44] LABS: ALBUMIN 3.2 GM/DL (3.2-5.2); BILIRUBIN,TOTAL 1.2 MG/DL (0.2-1.0); TOTAL PROTEIN 6.5 GM/DL (6.4-8.2)
[2020-07-31] MEDS ORDERED: LEVEMIR (INSULIN DETEMIR) 1 UNITS/0.01ML SC SCH (09:00)
[2020-07-31] MEDS: CARVedilol 12.5 MG TAB PO SCH ×2 (09:00→21:09)
[2020-07-31] MEDS ORDERED: PNEUMOCOCCAL VACCINE 0.5ML SYRINGE (PNEUMOVAX 23) IM ONE (09:00)
[2020-07-31] MEDS ORDERED: FLUBLOK(EGG FREE)(QUAD)INFLUENZA VACC 0.5ML SYRINGE 18YRS & OLDER IM ONE (09:00)
[2020-07-31 09:53] LABS: HEMATOCRIT 43.3 % (42.0-52.0); HEMOGLOBIN 13.3 g/dl (13.5-17.5); MEAN CORPUSCULAR HEMOGLOBIN 25.8 pg (27.0-33.0); MEAN CORPUSCULAR HGB CONC 30.7 g/dl (32.0-36.5); MEAN CORPUSCULAR VOLUME 84.1 fl (80.0-96.0); PLATELET COUNT, AUTOMATED 162 10^3/uL (150-450); RED BLOOD COUNT 5.15 10^6/uL (4.30-6.10); WHITE BLOOD COUNT 8.1 10^3/uL (4.0-10.0)
[2020-07-31] MEDS: guaiFENesin/CODEINE SYRUP 5 ML UDC PO PRN ×2 (09:53→21:08)
[2020-07-31] MEDS: PANTOPRAZOLE 40MG TAB (PROTONIX) PO SCH (09:57)
[2020-07-31] MEDS: CETIRIZINE (ZyrTEC) 10 MG TAB PO SCH (13:20)
[2020-07-31 14:00] VITALS: BP 102/72
[2020-07-31] MEDS: CEPACOL LOZENGE MT PRN (16:34)
[2020-07-31 16:57] LABS: MAGNESIUM LEVEL 2.3 MG/DL (1.8-2.4); PHOSPHORUS LEVEL 3.2 MG/DL (2.5-4.9)
--- NOTE | 2020-07-31 16:59 | IPNPDOC ---
Date Seen The patient was seen on 07/31/20. Progress Note SUBJECTIVE: Nonsustained V tach, lytes checked and pending. Added zyrtec for possible allergies and post nasal drip. Cannot r/o swallowing issues creating coughing so ordering speech and swallow for 08/01/20. No coughing up blood overnight, H/H stable. Denies chest pain, shortness of breath, n/v/d. Cough improved with robitussin with codeine. OBJECTIVE: PHYSICAL EXAMINATION: VS: Please see below. CONSTITUTIONAL: No acute distress, resting comfortably, AAO x 3 EYES: PERRLA, EOM intact HENT, MOUTH: Normocephalic, atraumatic, moist mucous membranes NECK: SUPPLE, no JVD, no lymphadenopathy, no carotid bruit CV: irregularly irregular, rate controlled. S1S2 normal, no murmurs/rubs/gallops RESPIRATORY: mild wheezing, Clear to auscultation bilaterally, no rales/rhonchi/wheezes GI: obese abd, no inguinal hernia on exam, BS positive in 4 quadrants, soft, nontender, nondistended, no rebound or guarding, no organomegaly : Deferred MUSCULOSKELETAL: Normal ROM. No cyanosis, clubbing, swelling, joint deformity, +3 pitting extremity edema INTEGUMENTARY: Intact, no rashes, no lesions, no erythema NEUROLOGIC: Cranial Nerves II-XII are intact, no focal deficits PSYCHIATRIC: Mood and affect are normal LABORATORY DATA: Please see below Occult blood: Neg IMAGING: CXR: Chronic stable changes. No focal consolidation or effusion. CT chest: 1. Essentially chronic nonacute findings throughout the abdomen and pelvis as described above and similar to 11/05/2018. 2. Lung bases demonstrates small right pleural effusion with minimal dependent atelectasis and stable cardiomegaly. CT abd/pelvis: 1. Essentially chronic nonacute findings throughout the abdomen and pelvis as described above and similar to 11/05/2018. 2. Lung bases demonstrates small right pleural effusion with minimal dependent atelectasis and stable cardiomegaly. Last echo 2019: 1. Study is of limited technical quality. 2. Dilated severely globally hypokinetic left ventricle with overall estimated LVEF 10-15%. 3. Dilated hypokinetic right ventricle. 4. Severe biatrial enlargement. 5. Competent aortic valve. 6. Moderate mitral and tricuspid insufficiency. 7. Very high central venous pressure. 8. At least moderate and more likely moderately severe pulmonary hypertension. 9. ICD lead apparent in right-sided heart chambers. ASSESSMENT: 74-year-old male with past medical history of systolic congestive heart failure with ejection fraction of 10%, chronic atrial fibrillation, history of kidney stones, history of epistaxis, hypertension, diabetes mellitus admitted for close observation and management of acute hemoptysis, shortness of breath. PLAN: Acute hemoptysis poss 2/2 to increased coughing vs. lung/airway pathology not yet identified. Allergies vs. uncontrolled GERD vs. aspiration as cause of cough? -Intermittently tachycardic but improving. -Not suspecting GI source of bleeding as no dark stool, occult neg. No prior hx of hemoptysis -No episodes hemoptysis overnight -H/H stable at 1343 -COVID, influenza A&B neg -F/u daily CBC, monitor closely on tele, swallowing evaluation 08/01/20 -Continue to hold ASA. added zyrtec. C/w PPI, robitussin with codeine, levoalbuterol ATC and PRN. Tranfuse PRN Acute kidney injury (CHARLIE) likely 2/2 to prerenal cause -Cr 2 --> 1.93, baseline Cr believed to be near 1.4 -Stopping diuretics for now and hydrating gently with IVFs at 75 cc/hr. Careful not to overload with poor EF, CHF. -f/u daily labs Nonsustained V-tach -Check lytes, replace PRN -Keep on tele Hyponatremia likely 2/2 to dehydration, diuretics -Improving slowly with gentle IVF hydration -Cannot aggressively hydrate due to CHF; however, on IVFs at 75 cc/hr. -Monitor labs daily. Shortness of breath likely 2/2 to chronic systolic CHF (EF 10%) and small pleural effusion vs. cause of cough (see above) -Currently on RA, saturating well and is likely close to his baseline respiratory status -BNP 7K; however, previously 10K and remains chronically elevated -Last echo above -Holding diuretics, entresto due to CHARLIE for now, gently hydrating. Monitor for signs of worsening fluid overload -C/w BB and treatment above. When bleeding has subsided and Cr improved, consider diuresing -Dr. Biswas is field staff. Right inguinal pain, chronic. Hx of left inguinal hernia repair. -States has pain intermittently that extends across pubis area, prohibits him from walking some days which is why he uses a scooter instead of ambulating. -Abd US 06/2020: The area in question demonstrates mildly heterogeneous, mildly edematous subcutaneous tissue without discrete lesion, collection, or hernia. -CT abd/pelvis above -No pain on exam, no fullness or area of protrusion with coughing. -Will order PT/OT to see if pain induced with activity DM type II , uncontrolled -BS uncontrolled >300. -HbA1c 10.2 -Increased AM levemir to 17U, levemir 10 [facility] -ISS. AC/HS FS and ISS. Atrial fibrillation, chronic -Rate controlled -C/w BB, not on AC HTN -Stable -C/w home meds, holding diuretics GI px -PPI DVT px -SCDs, teds. AC CI with hemoptysis DISPOSITION: Admitted under inpatient status. Pulmonary available if needed. When appropriate PT/OT and hopeful discharge home when medically cleared. VS, I&O, 24H, [place]one[place]anne Vital Signs/I&O Vital Signs Date Time Temp Pulse Resp B/P (MAP) Pulse Ox O2 Delivery O2 Flow Rate FiO2 07/31/20 14:00 97.9 100 21 102/72 (82) 97 Nasal Cannula 0.5 I&O- Last 24 Hours up to 6 AM 07/31/20 06:00 Intake Total 3345 ml Output Total 1200 ml Balance 2145 ml Laboratory Data 24H LABS Laboratory Tests 2 07/30/20 18:24: Bedside Glucose (Misc Panel) 301H 07/30/20 20:13: Bedside Glucose (Misc Panel) 191H 07/31/20 00:05: Bedside Glucose (Misc Panel) 111H 07/31/20 01:20: Nucleated Red Blood Cells % (auto) 0.0 07/31/20 02:42: Bedside Glucose (Misc Panel) 142H 07/31/20 05:54: Nucleated Red Blood Cells % (auto) 0.0 07/31/20 05:58: Anion Gap 5L, Glomerular Filtration Rate 44.1, Calcium Level 8.2L, Total Bilirubin 1.2H, Aspartate Amino Transf (AST/SGOT) 10, Alanine Aminotransferase (ALT/SGPT) 30, Alkaline Phosphatase 64, Total Protein 6.5, Albumin 3.2, Albumin/Globulin Ratio 1.0 07/31/20 06:05: Bedside Glucose (Misc Panel) 140H 07/31/20 12:20: Bedside Glucose (Misc Panel) 151H CBC/BMP Laboratory Tests 07/31/20 01:20 07/31/20 05:54 07/31/20 05:58 Current Medications Current Medications Medications (Trade) Dose Ordered Sig/April Route PRN Reason Start Time Stop Time Status Last Admin Dose Admin Carvedilol (COReg) 12.5 mg BID PO 07/30/20 09:00 07/30/20 20:56 Cetirizine HCl (ZyrTEC) 10 mg DAILY PO 07/31/20 09:00 07/31/20 13:20 Cetylpyridinium Chloride (Cepacol) 1 yessica Q2HP PRN MT cough, sore throat 07/30/20 09:15 07/31/20 16:34 Codeine Phosphate/ Guaifenesin (Robitussin Ac) 10 ml Q4HP PRN PO COUGH 07/30/20 12:30 07/31/20 09:53 Dextrose (Dextrose 50%) 25 ml ASDIRECTED PRN IV SEE LABEL COMMENTS 07/30/20 12:15 Fluticasone Propionate (Flonase 0.05% Nasal [place]) 1 spray BID PRN NARES NASAL CONGESTION 07/30/20 12:15 Glucagon (Glucagon) 1 mg ASDIRECTED PRN SC SEE LABEL COMMENTS 07/30/20 12:15 Glucose (Glucose) 16 GM ASDIRECTED PRN PO SEE LABEL COMMENTS 07/30/20 12:15 Home Med (Med Rec Complete!) ASDIRECTED XX 07/30/20 09:00 07/30/20 08:56 DC Insulin Detemir (Levemir Insulin) 10 units QAM SC 07/31/20 09:00 07/31/20 09:54 Insulin Detemir (Levemir Insulin) 10 units QHS SC 07/30/20 21:00 07/30/20 20:41 Insulin Human Lispro (HumaLOG INSULIN) SEE PROTOCOL TABLE Q6H SC 07/30/20 12:00 07/31/20 13:20 Levalbuterol HCl (Xopenex Neb) 1.25 mg Q2HP PRN NEB SOB/WHEEZING 07/30/20 09:45 Levalbuterol HCl (Xopenex Neb) 1.25 mg RQ4H NEB 07/30/20 12:00 07/31/20 11:47 Ondansetron HCl (ZOFRAN INJection) 4 mg Q6HP PRN IV NAUSEA OR VOMITING 07/31/20 03:30 07/31/20 03:37 Pantoprazole Sodium (Protonix) 40 mg DAILY PO 07/30/20 09:00 07/31/20 09:57 Ramelteon (Rozerem) 8 mg QHS PRN PO INSOMNIA 07/31/20 02:45 Sodium Chloride 1,000 ml @ 75 mls/hr [id number] IV 07/30/20 12:15 07/31/20 02:37 DC 07/30/20 13:35 Allergies Coded Allergies: No Known Allergies (Unverified , 11/09/19) Brianda Bennett MD Jul 31, 2020 16:59
[2020-07-31 22:00] VITALS: BP 94/66
[2020-07-31] MEDS: LEVEMIR (INSULIN DETEMIR) 1 UNITS/0.01ML SC SCH (22:45)
[2020-07-31] MEDS: CALCIUM CARBONATE 500 MG CHEW U/D PO PRN (23:26)
[2020-08-01] MEDS: LEVALBUTEROL 1.25 MG/0.5 ML CONCENTRATE NEB NEB SCH ×6 (02:32→23:39)
[2020-08-01 04:02] VITALS: BP 106/69
[2020-08-01] MEDS: CALCIUM CARBONATE 500 MG CHEW U/D PO PRN (04:45)
[2020-08-01 06:00] VITALS: BP 114/75
[2020-08-01 06:23] LABS: HEMATOCRIT 46.8 % (42.0-52.0); HEMOGLOBIN 14.3 g/dl (13.5-17.5); MEAN CORPUSCULAR HEMOGLOBIN 25.4 pg (27.0-33.0); MEAN CORPUSCULAR HGB CONC 30.6 g/dl (32.0-36.5); MEAN CORPUSCULAR VOLUME 83.1 fl (80.0-96.0); PLATELET COUNT, AUTOMATED 172 10^3/uL (150-450); RED BLOOD COUNT 5.63 10^6/uL (4.30-6.10); WHITE BLOOD COUNT 7.2 10^3/uL (4.0-10.0)
[2020-08-01 06:43] LABS: ALBUMIN 3.2 GM/DL (3.2-5.2); BILIRUBIN,TOTAL 1.4 MG/DL (0.2-1.0); CALCIUM LEVEL 8.5 MG/DL (8.8-10.2); CREATININE FOR GFR 2.38 MG/DL (0.70-1.30); GLOMERULAR FILTRATION RATE 34.6 (>42); POTASSIUM SERUM 5.6 MEQ/L (3.5-5.1); TOTAL PROTEIN 6.9 GM/DL (6.4-8.2)
[2020-08-01] MEDS: HumaLOG INSULIN (NovoLOG) PER UNIT SC SCH ×4 (07:56→21:00)
[2020-08-01] MEDS: CETIRIZINE (ZyrTEC) 10 MG TAB PO SCH (07:57)
[2020-08-01] MEDS: LEVEMIR (INSULIN DETEMIR) 1 UNITS/0.01ML SC SCH ×2 (07:57→21:00)
[2020-08-01] MEDS: PANTOPRAZOLE 40MG TAB (PROTONIX) PO SCH (07:57)
[2020-08-01 08:00] VITALS: BP 94/64
[2020-08-01] MEDS: CARVedilol 12.5 MG TAB PO SCH (08:00)
[2020-08-01] MEDS ORDERED: PERCOCET 5MG/325MG TAB PO PRN (11:00)
[2020-08-01 12:09] LABS: HEPATITIS C VIRUS ABY INDEX 0.1 INDEX (<0.8)
[2020-08-01 12:10] LABS: HIV 1&2 SCREEN CENTAUR NEGATIVE (NEGATIVE)
[2020-08-01] MEDS: FUROSEMIDE 100MG/10ML VIAL (J1940) IV SCH ×2 (13:08→17:53)
[2020-08-01 14:00] VITALS: BP 128/71
[2020-08-01] MEDS ORDERED: SOD POLYSTYRENE SULFONATE SUSP 15 GM/60 ML UD PO ONE (14:00)
[2020-08-01 15:47] LABS: ABG BASE EXCESS 1.6 (-2.0-2.0); ABG HCO3 26.6 MEQ/L (22.0-26.0); ABG O2 SATURATION 97.3 % (95.0-99.0); ABG PARTIAL PRESSURE CO2 42.9 mmHg (35.0-45.0); ABG PARTIAL PRESSURE O2 94.4 mmHg (75.0-100.0); ABG STANDARD HCO3 25.9 MEQ/L (22.0-26.0); ABG TOTAL CO2 27.9 MEQ/L (23.0-31.0)
--- NOTE | 2020-08-01 16:01 | IPNPDOC ---
Date Seen The patient was seen on 08/01/20. Progress Note SUBJECTIVE: AAOx3 for me, sitting up in bedside chair. Complained of right inguinal pain again, consulted surgery to assess for possible hernia. Lytes were wnl after having some nonsustained V tach on 07/31/20. Consulted nephrology 2/2 to incr Cr, hyponatremia with hx of cardiorenal syndrome. Later in the day, patient was desaturating to 70's with sleeping, placed on 3 L NC. Nephrology ordered 80 mg BID lasix, blood pressure soft. Speech therapy assessed and recommended cookie swallow but this had to be postponed. ABG ordered due to incr lethargy and incr O2 demand- will f/u. H/H stable. Patient denies coughing up blood overnight, chest pain, shortness of breath, n/v/d. OBJECTIVE: PHYSICAL EXAMINATION: VS: Please see below. CONSTITUTIONAL: No acute distress, sitting up at bedside chair , AAO x 3 EYES: PERRLA, EOM intact HENT, MOUTH: Normocephalic, atraumatic, moist mucous membranes NECK: SUPPLE, no JVD, no lymphadenopathy, no carotid bruit CV: irregularly irregular, rate controlled. S1S2 normal, no murmurs/rubs/gallops RESPIRATORY: mild wheezing, Clear to auscultation bilaterally, no rales/rhonchi/wheezes GI: obese abd, again no inguinal hernia on exam, BS positive in 4 quadrants, soft, nontender, nondistended, no rebound or guarding, no organomegaly : Deferred MUSCULOSKELETAL: Normal ROM. No cyanosis, clubbing, swelling, joint deformity, +3 pitting extremity edema INTEGUMENTARY: Intact, no rashes, no lesions, no erythema NEUROLOGIC: Cranial Nerves II-XII are intact, no focal deficits PSYCHIATRIC: Mood and affect are normal LABORATORY DATA: Please see below Occult blood: Neg IMAGING: CXR: Chronic stable changes. No focal consolidation or effusion. CT chest: 1. Essentially chronic nonacute findings throughout the abdomen and pelvis as described above and similar to 11/05/2018. 2. Lung bases demonstrates small right pleural effusion with minimal dependent atelectasis and stable cardiomegaly. CT abd/pelvis: 1. Essentially chronic nonacute findings throughout the abdomen and pelvis as described above and similar to 11/05/2018. 2. Lung bases demonstrates small right pleural effusion with minimal dependent atelectasis and stable cardiomegaly. Last echo 2019: 1. Study is of limited technical quality. 2. Dilated severely globally hypokinetic left ventricle with overall estimated LVEF 10-15%. 3. Dilated hypokinetic right ventricle. 4. Severe biatrial enlargement. 5. Competent aortic valve. 6. Moderate mitral and tricuspid insufficiency. 7. Very high central venous pressure. 8. At least moderate and more likely moderately severe pulmonary hypertension. 9. ICD lead apparent in right-sided heart chambers. ASSESSMENT: 74-year-old male with past medical history of systolic congestive heart failure with ejection fraction of 10%, chronic atrial fibrillation, history of kidney stones, history of epistaxis, hypertension, diabetes mellitus admitted for close observation and management of acute hemoptysis, shortness of breath. PLAN: Shortness of breath likely 2/2 to chronic systolic CHF (EF 10%) and small pleural effusion. Worsening cardiorenal syndrome? -Currently on 3 L NC saturating at 94%, incr O2 demand today -BNP 7K on admission ---> incr to 7367; however, previously 10K and remains chronically elevated -Last echo above -Diuretics restarted by nephrology -Holding entresto due to CHARLIE for now. Monitor for signs of worsening fluid overload -C/w BB/ lasix and treatment above. -ABG ordered to further assess -Dr. Biswas is pullman conductor, consider consult if worsens Hypotension likely 2/2 to decreased PO intake. Not septic or septic shock -previously on gentle IVF hydration -Since stopping on 07/31/20, BP remains lower than normal -BB with holding parameters so this is not the cause -Monitor on tele closely. Acute kidney injury (CHARLIE) on CKD likely 2/2 to prerenal cause vs. cardiorenal syndrome -Cr --> 2.3 today, baseline Cr believed to be near 1.4. BNP slightly elevated -Gentle IVFs were stopped early 07/31/20 -Nephrology saw today and restarted BID lasix, f/u recommendation. -f/u daily labs Acute hemoptysis poss 2/2 to increased coughing. Resolved. -Hemoptysis resolved. -Not suspecting GI source of bleeding as no dark stool, occult neg. No prior hx of hemoptysis, alcohol use -Discussed with Dr. Slade on admission, no need for bronchoscopy to further assess if bleeding stops -H/H stable -Holding ASA still -F/u CBC daily UTI -Worsening Cr, WBC wnl -UCx pending -Started on ceftriaxone Persistent coughing (likely cause of hemoptysis) 2/2 to possible lung/airway pathology not yet identified vs Allergies vs. uncontrolled GERD vs. dysphagia/aspiration as cause of cough? -Improved since admission -COVID, influenza A&B neg -Swallowing evaluation 08/01/20 abnormal, suggest cookie swallow -C/w Zyrtec, PPI, robitussin with codeine, levoalbuterol ATC and PRN. Hyponatremia likely 2/2 to dehydration, diuretics -worsened today -Cannot aggressively hydrate due to CHF -Monitor labs daily. -F/u nephrology recommendation Right inguinal pain, chronic. Hx of left inguinal hernia repair. -States has pain intermittently that extends across pubis area, prohibits him from walking some days which is why he uses a scooter instead of ambulating. -Abd US 06/2020: The area in question demonstrates mildly heterogeneous, mildly edematous subcutaneous tissue without discrete lesion, collection, or hernia. -CT abd/pelvis above -No pain on exam, no fullness or area of protrusion with coughing. -Pain limits his activity greatly. -Surgery (Dr. Collins) consulted to assess. Dysphagia -Per speech, recommend cookie swallow Nonsustained V-tach -lytes wnl -Keep on tele DM type II , uncontrolled -BS better controlled -HbA1c 10.2 -C/w levemir to 17U, levemir 10 [facility] -ISS. AC/HS FS and ISS. Atrial fibrillation, chronic -Rate controlled -C/w BB, not on AC HTN -Stable -C/w home meds, holding diuretics GI px -PPI DVT px -SCDs, teds. AC CI with hemoptysis DISPOSITION: Admitted under inpatient status. Nephrology and surgery both consulted today for reasons above. F/u ABG, may need transfer to ICU vs. PCU based on results. PT/OT and hopeful discharge home when medically cleared. VS, I&O, 24H, [place] Vital Signs/I&O Vital Signs Date Time Temp Pulse Resp B/P (MAP) Pulse Ox O2 Delivery O2 Flow Rate FiO2 08/01/20 14:00 97.9 86 16 128/71 (90) 94 Nasal Cannula 1.0 I&O- Last 24 Hours up to 6 AM 08/01/20 06:00 Intake Total 1090 ml Output Total 875 ml Balance 215 ml Laboratory Data 24H LABS Laboratory Tests 2 07/31/20 17:07: Bedside Glucose (Misc Panel) 182H 07/31/20 21:35: Bedside Glucose (Misc Panel) 219H 08/01/20 05:56: Nucleated Red Blood Cells % (auto) 0.0, Anion Gap 6L, Glomerular Filtration Rate 34.6L, Calcium Level 8.5L, Total Bilirubin 1.4H, Aspartate Amino Transf (AST/SGOT) 17, Alanine Aminotransferase (ALT/SGPT) 45, Alkaline Phosphatase 72, RT-Fff-P-Type Natriuretic Peptide 7367H, Total Protein 6.9, Albumin 3.2, Albumin/Globulin Ratio 0.9 08/01/20 11:25: Bedside Glucose (Misc Panel) 225H 08/01/20 12:33: 08/01/20 14:18: Urine Color YELLOW, Urine Appearance CLOUDYH, Urine pH 5.0, Urine Specific [place] 1.011, Urine Protein 1+H, Urine Glucose (UA) NEGATIVE, Urine Ketones NEGATIVE, Urine Blood 1+H, Urine Nitrite NEGATIVE, Urine Bilirubin NEGATIVE, Urine Urobilinogen 4.0H, Urine Leukocyte Esterase 3+H, Urine WBC (Auto) TNTCH, Urine RBC (Auto) 13H, Urine Hyaline Casts (Auto) 10, Urine Bacteria (Auto) 2+H, Urine Squamous Epithelial Cells 1, Urine Mucus (Auto) SMALL, Urine Sperm (Auto) 08/01/20 14:48: Bedside Glucose (Misc Panel) 177H CBC/BMP Laboratory Tests 08/01/20 05:56 Microbiology Microbiology 08/01/20 Urine Culture, Received Pending Current Medications Current Medications Medications (Trade) Dose Ordered Sig/April Route PRN Reason Start Time Stop Time Status Last Admin Dose Admin Calcium Carbonate (Tums) 1,000 mg Q4HP PRN PO HEARTBURN 07/31/20 23:30 08/01/20 04:45 Carvedilol (COReg) 12.5 mg BID PO 07/30/20 09:00 08/01/20 08:43 DC 07/31/20 21:09 Cetirizine HCl (ZyrTEC) 10 mg DAILY PO 07/31/20 09:00 08/01/20 07:57 Cetylpyridinium Chloride (Cepacol) 1 yessica Q2HP PRN MT cough, sore throat 07/30/20 09:15 07/31/20 16:34 Codeine Phosphate/ Guaifenesin (Robitussin Ac) 10 ml Q4HP PRN PO COUGH 07/30/20 12:30 07/31/20 21:08 Dextrose (Dextrose 50%) 25 ml ASDIRECTED PRN IV SEE LABEL COMMENTS 07/30/20 12:15 Fluticasone Propionate (Flonase 0.05% Nasal [place]) 1 spray BID PRN NARES NASAL CONGESTION 07/30/20 12:15 Furosemide (LASIX injection) 80 mg BID@09,17 IV 08/01/20 09:00 08/01/20 13:08 Glucagon (Glucagon) 1 mg ASDIRECTED PRN SC SEE LABEL COMMENTS 07/30/20 12:15 Glucose (Glucose) 16 GM ASDIRECTED PRN PO SEE LABEL COMMENTS 07/30/20 12:15 Home Med (Med Rec Complete!) ASDIRECTED XX 07/30/20 09:00 07/30/20 08:56 DC Insulin Detemir (Levemir Insulin) 10 units QAM SC 07/31/20 09:00 07/31/20 16:55 DC 07/31/20 09:54 Insulin Detemir (Levemir Insulin) 10 units QHS SC 07/30/20 21:00 07/31/20 22:45 Insulin Detemir (Levemir Insulin) 17 units QAM SC 08/01/20 09:00 08/01/20 07:57 Insulin Human Lispro (HumaLOG INSULIN) SEE PROTOCOL TABLE AC SC 07/31/20 17:30 08/01/20 07:56 Insulin Human Lispro (HumaLOG INSULIN) SEE PROTOCOL TABLE Q6H SC 07/30/20 12:00 07/31/20 16:57 DC 07/31/20 13:20 Insulin Human Lispro (HumaLOG INSULIN) SEE PROTOCOL TABLE QHS SC 07/31/20 21:00 Levalbuterol HCl (Xopenex Neb) 1.25 mg Q2HP PRN NEB SOB/WHEEZING 07/30/20 09:45 Levalbuterol HCl (Xopenex Neb) 1.25 mg RQ4H NEB 07/30/20 12:00 08/01/20 11:52 Ondansetron HCl (ZOFRAN INJection) 4 mg Q6HP PRN IV NAUSEA OR VOMITING 07/31/20 03:30 07/31/20 03:37 Oxycodone/ Acetaminophen (Percocet 5mg/ 325mg Tablet) 1 tab Q4HP PRN PO MODERATE PAIN (PS 5-7) 08/01/20 11:00 08/01/20 10:55 Pantoprazole Sodium (Protonix) 40 mg DAILY PO 07/30/20 09:00 08/01/20 07:57 Ramelteon (Rozerem) 8 mg QHS PRN PO INSOMNIA 07/31/20 02:45 Sodium Chloride 1,000 ml @ 75 mls/hr [id number] IV 07/30/20 12:15 07/31/20 02:37 DC 07/30/20 13:35 Allergies Coded Allergies: No Known Allergies (Unverified , 11/09/19) Brianda Bennett MD Aug 01, 2020 16:01
[2020-08-01] MEDS: cefTRIAXone SOD 1 GM in D5W MINI-BAG PLUS 50 ML IV SCH (16:18)
[2020-08-01 17:20] VITALS: BP 130/97
[2020-08-01] MEDS ORDERED: SLF 3 ML SYR IV PRN (18:15)
[2020-08-01 20:00] VITALS: BP 115/73
[2020-08-01] MEDS: SLF 3 ML SYR IV SCH (22:00)
[2020-08-02] VITALS: BP 108/72
[2020-08-02 04:00] VITALS: BP 139/79
[2020-08-02] MEDS: LEVALBUTEROL 1.25 MG/0.5 ML CONCENTRATE NEB NEB SCH ×5 (04:00→19:55)
[2020-08-02] MEDS: SLF 3 ML SYR IV SCH ×3 (05:45→20:35)
[2020-08-02 06:33] LABS: HEMATOCRIT 47.4 % (42.0-52.0); HEMOGLOBIN 14.8 g/dl (13.5-17.5); MEAN CORPUSCULAR HEMOGLOBIN 26.1 pg (27.0-33.0); MEAN CORPUSCULAR HGB CONC 31.2 g/dl (32.0-36.5); MEAN CORPUSCULAR VOLUME 83.7 fl (80.0-96.0); PLATELET COUNT, AUTOMATED 191 10^3/uL (150-450); RED BLOOD COUNT 5.66 10^6/uL (4.30-6.10); WHITE BLOOD COUNT 7.5 10^3/uL (4.0-10.0)
[2020-08-02 06:40] LABS: CALCIUM LEVEL 8.7 MG/DL (8.8-10.2); CREATININE FOR GFR 2.04 MG/DL (0.70-1.30); GLOMERULAR FILTRATION RATE 41.3 (>42); POTASSIUM SERUM 4.7 MEQ/L (3.5-5.1)
[2020-08-02] MEDS: HumaLOG INSULIN (NovoLOG) PER UNIT SC SCH ×4 (07:19→20:33)
[2020-08-02 08:00] VITALS: BP 136/94
[2020-08-02] MEDS: LEVEMIR (INSULIN DETEMIR) 1 UNITS/0.01ML SC SCH ×2 (09:00→20:34)
[2020-08-02] MEDS: PANTOPRAZOLE 40MG TAB (PROTONIX) PO SCH (09:00)
[2020-08-02] MEDS: CETIRIZINE (ZyrTEC) 10 MG TAB PO SCH (09:00)
[2020-08-02] MEDS ORDERED: LEVEMIR (INSULIN DETEMIR) 1 UNITS/0.01ML SC ONE (09:30)
[2020-08-02] MEDS: FUROSEMIDE 100MG/10ML VIAL (J1940) IV SCH ×2 (09:37→16:54)
[2020-08-02] MEDS ORDERED: VARIBAR NECTAR 40% w/v 240ML SUSP BTL As Ordered ONE (09:52)
[2020-08-02] MEDS ORDERED: E-Z-PAQUE 96% w/w SUSP 176GM BTL As Ordered ONE (09:52)
[2020-08-02] MEDS ORDERED: BARIUM SULFATE 700 MG TABLET (E-Z-DISK) As Ordered ONE (09:52)
[2020-08-02] MEDS ORDERED: VARIBAR PUDDING 40% w/v 230ML TUBE As Ordered ONE (09:52)
[2020-08-02] MEDS ORDERED: metOLazone 2.5 MG TAB PO ONE (11:45)
[2020-08-02 12:00] VITALS: BP 123/94
--- NOTE | 2020-08-02 13:09 | CR ---
DATE: 08/01/2020 REQUESTING PHYSICIAN: Dr. Brianda Bennett CONSULTING PHYSICIAN: Dr. Ferreira REASON FOR CONSULTATION: Decompensated systolic congestive heart failure, hyperkalemia, acute kidney injury (CHARLIE) on chronic kidney disease (CKD) stage III. HISTORY OF PRESENT ILLNESS: Jesu Vargas is known to me from the office and from previous hospitalizations as well. He is a 74-year-old male with a past medical history of severe systolic congestive heart failure with ejection fraction of 10%, chronic atrial fibrillation, history of nephrolithiasis, hypertension, CKD stage III, history of recurrent acute kidney injuries in the past, gout, insulin-dependent diabetes mellitus and other comorbid conditions mentioned below. The patient was admitted to [facility] on July 30 due to complaint of bloody cough x2 weeks which was initially felt to be an upper respiratory tract infection; however, it persisted and worsened prompting ER visit and hospitalization. Upon admission, his Entresto and his torsemide were held and his aspirin was stopped in view of the bloody cough. Symptomatically, the patient's hemoptysis improved and apparently even resolved; however, over the course of this day he had received some IV fluids for renal function worse than his usual baseline and his diuretics and Entresto were held and his volume status decompensated and his renal function further worsened and he became hyperkalemic, and nephrology evaluation was requested today. The patient was seen and examined at the bedside and he complains of increased leg edema and fluid retention. He tells me that his bloody cough has gotten much better and he reports stable dyspnea with exertion. PAST MEDICAL HISTORY: 1. Severe cardiomyopathy, ejection fraction 10%, status post AICD. 2. Atrial fibrillation. 3. Insulin-dependent diabetes mellitus. 4. Hypertension. 5. Obesity. 6. Nephrolithiasis. 7. Cholangitis. 8. Nonsustained ventricular tachycardia. 9. Gout. 10. CKD 3. multiple CHARLIE in past PAST SURGICAL HISTORY: 1. AICD/defibrillator. 2. Bilateral knee surgery. 3. Left inguinal hernia repair. 4. ERCP, biliary stent placement. FAMILY HISTORY: No known family history of end-stage kidney disease requiring dialysis. Father of coronary artery disease; mother of a stomach tumor. SOCIAL HISTORY: Denies smoking, alcohol or drugs. Lives alone but daughter in same building complex ALLERGIES: No known drug allergies. HOME MEDICATIONS: - Aspirin 81 mg p.o. ever 8 hours - Coreg 12.5 mg p.o. twice a day - Vitamin D3 1000 units p.o. daily - Uloric 80 mg p.o. daily - Toujeo - Entresto 24-26 mg twice daily - Januvia 50 mg p.o. daily - Torsemide 100 mg p.o. daily REVIEW OF SYSTEMS: CONSTITUTIONAL: Denies fevers or chills. EYES: Denies tearing or blurry vision. EARS, NOSE, AND THROAT: Denies epistaxis or rhinorrhea. RESPIRATORY: Reports that the bloody cough has resolved. Reports stable dyspnea with exertion. CARDIAC: Has severe systolic congestive heart failure and atrial fibrillation and defibrillator. Notes increase in leg edema. GASTROINTESTINAL: Denies nausea, vomiting, diarrhea; reports constipation. GENITOURINARY: Denies trouble emptying out his bladder. Has no complaint of dysuria or hematuria. ENDOCRINE: Repots obesity and insulin-dependent diabetes mellitus. HEMATOLOGIC: Denies anemia or blood transfusions. MUSCULOSKELETAL: Reports some increased leg edema; is mostly sedentary; denies acute myalgias or arthralgias. SKIN: Denies new rashes or pruritus. NEUROLOGIC: Denies seizure or syncope. Remainder of review of systems is negative or as per history of present illness (HPI). PHYSICAL EXAMINATION: VITAL SIGNS: Temperature 96.8, pulse 92, respiratory rate 20, blood pressure 115/73, saturating 92-100% on 1-2 liters. Intake yesterday was 1960. Urine output yesterday was 975. Weight in the bed scale today is not reported. GENERAL: Patient is seen sitting out of bed to the chair. Morbidly obese male in no apparent distress. HEENT: Extraocular muscles are intact. Tongue is moist. NECK: Supple. Jugular veins are elevated. HEART: Sounds are irregular. There is a defibrillator in the left chest wall. RESPIRATORY: Breath sounds were symmetric. He was on room air at the time of my visit. There was no accessory muscle use or tachypnea. The breath sounds are distant secondary to body habitus. ABDOMEN: Obese, soft and nontender. GENITOURINARY: There is no Glass catheter. He is voiding to a urinal. EXTREMITIES: There is 3+ leg edema that comes up to the thighs and hip. SKIN: Normal temperature; no rashes. NEUROLOGIC: He oriented x3 at baseline mentation. LABORATORY DATA: White count7.2, hemoglobin 14.3, platelets 172; sodium 129, potassium 5.6, bicarbonate 27, BUN 44, creatinine 2.3; BNP 7300; pH 7.40, pCO2 of 42, pO2 of 94. CT chest, July 30: Cardiomegaly, prominent pulmonary vasculature cephalization, small right pleural effusion. CT abdomen and pelvis, July 30: No hydroureteronephrosis; partially collapsed normal bladder; mildly prominent prostate. INPATIENT MEDICATIONS: He is receiving: - Ceftriaxone 1 gram IV daily - Tums p.r.n. heartburn - Zyrtec 10 mg p.o. daily - Robitussin 10 mL p.o. every hour p.r.n. - Insulin - Xopenex p.r.n. - Xopenex ever 4 hours - Zofran p.r.n. - Percocet p.r.n. - Protonix 40 mg p.o. daily PROBLEMS: 1. Decompensated combined systolic congestive heart failure with left ventricular ejection fraction of 10% and right heart failure as well. Patient is grossly volume overloaded and is in cardiorenal syndrome. I have restarted him on diuretics with Lasix 80 mg IV twice daily, and he should be on fluid restriction as well. I am holding off on his Entresto given his acute kidney injury and hyperkalemia at the present time. 2. Hypervolemic hyponatremia. Serum sodium is 129 and this is due to fluid overload and he is being started on looped diuretic for the same. His sodium level is expected to improve as he diureses. 3. Acute kidney injury (CHARLIE) on chronic kidney disease (CKD) stage III. Patient has a history of recurrent acute kidney injury because he very easily goes into cardiorenal syndrome given his advanced congestive heart failure. When he is well diuresed, his creatinine is usually around the mid 1. Continue to monitor renal function as he is being resumed on diuretics, and I am holding his Entresto in view of hyperkalemia and acute kidney injury. 4. Hyperkalemia. He is being started on Lasix which will help with potassium excretion, and I am also giving a dose of Kayexalate. 5. Insulin-dependent diabetes mellitus that is poorly controlled. A1c is greater than 10%. Primary team is managing his insulin. 6. Recent complaint of hemoptysis. Patient tells me that his hemoptysis is improving since his aspirin was held. In view of his acute kidney injury and hemoptysis, in order to complete the workup, I have sent for vasculitis workup with ANCA and anti-GBM antibody. CHAD
--- NOTE | 2020-08-02 13:22 | IPNPDOC ---
Text Note Date of Service The patient was seen on 08/02/20. NOTE Subjective: No any acute events overnight. Patient continues to complain of the right lower abdominal quadrant pain. He stated his breathing improved. Objective: GENERAL APPEARANCE: NAD HEENT: no scleral icterus, no JVD, EOMI CARDIOVASCULAR: Irregularly irregular LUNGS: Diminished lung sounds ABDOMEN: soft & not tender w palpitation, no rebound, obese MUSCULOSKELETAL: +2 nonpitting edema INTEGUMENT: no generalized palor NEUROLOGICAL: cranial nerve function from 2-12 intact intact, follows commands, speech not dysarthric ASSESSMENT: 74-year-old male with past medical history of systolic congestive heart failure with ejection fraction of 10%, chronic atrial fibrillation, history of kidney stones, history of epistaxis, hypertension, diabetes mellitus admitted for close observation and management of acute hemoptysis, shortness of breath. Shortness of breath Improved Secondary to systolic CHF Continue treatment with Lasix IV I's and O's I will discuss with his Dr. Biswas follow-up plan. Patient stated that echo was done one month and a half ago Will repeat echo Hypotension Most likely secondary to CHF exacerbation and severely compromised cardiac function Blood pressure improved and stable CHARLIE Improved Most likely secondary to volume overload due to CHF exacerbation Continue to monitor Hemoptysis/cough Resolved Discussed with Dr. Slade on admission, no need for bronchoscopy to further assess Aspirin on hold Follow-up with compound filler in the outpatient settings Swallowing evaluation done, diet modified Continue inhalers UTI Patient complains of suprapubic pain Continued ceftriaxone UA shows pyuria Hyponatremia Resolved Right lower quadrant pain There is concern for inguinal hernia Appreciate/agree with surgical consult Nonsustained V-tach QTc prolonged I discontinued Zofran Follow-up with reliability technologist in the outpatient settings DM Poorly controlled diabetes with HbA1c 10.2 Diabetes diet Detemir twice a day Insulin sliding scale Atrial fibrillation, chronic Rate controlled on beta blockers I will not initiate anticoagulation therapy due to hemoptysis I will defer decision to reliability technologist Dr. Biswas HTN -Stable -C/w home meds, holding diuretics GI px -PPI VS,Fishbone, I+O VS, Fishbone, I+O Laboratory Tests 08/02/20 06:06 Vital Signs Date Time Temp Pulse Resp B/P (MAP) Pulse Ox O2 Delivery O2 Flow Rate FiO2 08/02/20 08:00 96.3 83 18 136/94 (108) 93 Nasal Cannula 3.0 I&O- Last 24 Hours up to 6 AM 08/02/20 06:00 Intake Total 170 ml Output Total 850 ml Balance -680 ml KASEY MINOR DO Aug 02, 2020 13:22
[2020-08-02] MEDS: cefTRIAXone SOD 1 GM in D5W MINI-BAG PLUS 50 ML IV SCH (15:23)
[2020-08-02 16:00] VITALS: BP 139/81
--- NOTE | 2020-08-02 17:49 | REP ---
INDICATION: coughing while swallowing COMPARISON: None TECHNIQUE: The procedure was performed by BATSHEVA Angelo, under the direct supervision of Dr. Resendez. The procedure was performed with Misty Vasquez from speech pathology present. 5 ml aliquots of thin, pudding, mixed fruit, soft food, and hard food consistency barium was administered. FINDINGS: No aspiration or penetration was visualized during the course of the exam. The detailed report of this examination will be provided by speech pathology. IMPRESSION: 1. Unremarkable modified barium swallow, detailed report will be provided by speech pathology. 1.8 minutes of fluoroscopy time was utilized for this procedure. Some fluoroscopic images are performed with last image hold technology. These images require no additional radiation. <Electronically signed by Nichole Rodriguez > 08/02/20 1107 <Electronically signed by Sinan Resendez > 08/02/20 [id number]
[2020-08-02 20:00] VITALS: BP 117/76
[2020-08-03] VITALS (9 sets, daily range): BP systolic 111–152; BP diastolic 74–87; O2SAT 94–98
[2020-08-03] MEDS: FUROSEMIDE 100MG/10ML VIAL (J1940) IV SCH ×2 (00:19→09:23)
[2020-08-03] MEDS: LEVALBUTEROL 1.25 MG/0.5 ML CONCENTRATE NEB NEB SCH ×3 (04:00→08:00)
[2020-08-03 05:22] LABS: CALCIUM LEVEL 8.7 MG/DL (8.8-10.2); CREATININE FOR GFR 1.65 MG/DL (0.70-1.30); GLOMERULAR FILTRATION RATE 52.7 (>42); POTASSIUM SERUM 3.5 MEQ/L (3.5-5.1)
[2020-08-03] MEDS: SLF 3 ML SYR IV SCH ×2 (05:41→14:13)
--- NOTE | 2020-08-03 06:53 | ECHO ---
DATE OF PROCEDURE: 08/02/2020 Age: 75 Gender: Male Height: 188 cm Weight: 140 kg REFERRING PHYSICIAN: Jet Terrell MD INDICATION: Edema MEASUREMENTS: IVS 1.1 LV 6.5 LVPW 1.3 LA 4.8 Aorta 3.5 IVC 2.8 FINDINGS: This study is of fair technical quality with difficult visualization in corresponding to the patient's body habitus. Underlying atrial fibrillation with controlled rate. Left ventricle is dilated and globally severely hypokinetic. I estimate overall ejection fraction (EF) approximately 20 to 25% and based on limited views. Right ventricle is also dilated and hypokinetic. There is severe biatrial enlargement. Aortic valve has 3 cusps. It is minimally sclerotic, but has normal mobility. There are mild degenerative abnormalities of mitral valve, but mobility of leaflets is preserved. Tricuspid and pulmonary valves appear normal. Small noncompressive pericardial effusion is present. Inferior vena cava is dilated without appreciable collapse with inspiration indicative of very high central venous pressure. Aortic root and aortic arch appear normal. Doppler interrogation of aortic valve reveals no significant stenosis or insufficiency. There is approximately mild to moderate mitral insufficiency likely related to LV dysfunction. There is at least moderate tricuspid insufficiency. Calculated pulmonary artery pressure is at minimum in mid to high 60s corresponding to moderately severe pulmonary hypertension. Trace pulmonic insufficiency is noted. Evaluation of diastolic function is inconclusive due to underlying atrial fibrillation. CONCLUSIONS: 1. Study is of fair technical quality. Underlying atrial fibrillation with controlled rate. 2. Dilated globally hypokinetic left ventricle with overall estimated left ventricular ejection fraction (LVEF) 20 to 25%. 3. Dilated hypokinetic right ventricle. 4. Severe biatrial enlargement. 5. Competent aortic valve. 6. Mild to moderate mitral insufficiency secondary to LV dysfunction 7. At least moderate tricuspid insufficiency. 8. Very high central venous pressure and at least moderately severe pulmonary hypertension. 9. Small non-compressive pericardial effusion. 10. Pacemaker or implantable cardioverter defibrillator (ICD) electrodes apparent in right-sided heart chambers. MTDD
--- NOTE | 2020-08-03 07:35 | CR ---
DATE OF CONSULTATION: 08/02/2020 REQUESTING PROVIDER: Hospitalist Service REASON FOR CONSULTATION: Right groin swelling and discomfort, evaluate for hernia. HISTORY OF PRESENT ILLNESS: The patient is a 75-year-old man who was admitted to the hospital on the 30 of July. He had presented for evaluation after reporting that he had coughed up some blood at home. He has a history of congestive heart failure with an ejection fraction reported at 10%. He has chronic atrial fibrillation, a history of kidney stones and a history of epistaxis. There is hypertension and diabetes mellitus. He reported that he had had a significant cough and over the last two weeks has had some intermittent coughing up of blood. He had noticed an increase in this bleeding over the last couple days. Because of this, he presented to the Emergency Department. He underwent multiple imaging studies including a CT angio of the chest which was negative for any acute findings. He was admitted for management. The patient reports that for some time now he has had discomfort and swelling in his right groin. He reports that he had a left inguinal hernia repaired years ago. He finds that for, again, some time now when he sits he will feel a lump in the right groin area which he thinks is very similar to what his hernia felt like on the opposite side. Sometimes when he lies down he will rub this gently, and it feels to him as if the swelling is relieved. He does have tenderness in the area which he states makes it difficult for him to get in and out of chairs and vehicles. He has undergone prior imaging studies but as he is in the hospital now, it is requested that I evaluate the patient regarding a possible inguinal hernia on the right. ALLERGIES: The patient reports no known drug allergies. MEDICATIONS: The patients current medications include: * Xopenex nebulizers. * Flonase nasal spray. * Insulin. * Robitussin with Codeine Cough Syrup. * Protonix. * Rozerem. * Zyrtec. * Tums. * Percocet p.r.n. * Ceftriaxone. * Lasix. PAST MEDICAL HISTORY: The patient's past medical history is as noted in the history of the present illness. SURGICAL HISTORY: The patient's past surgical history includes: * Left inguinal hernia repair. * He has undergone placement of a renal stent. * Implanted cardioverter defibrillator. * Right and left knee replacements. * He had undergone an ERCP in November of 2018, reportedly for cholangitis and has a metal stent in the common bile duct. FAMILY HISTORY: As noted by the Hospitalist. SOCIAL HISTORY: As noted by the Hospitalist. REVIEW OF SYSTEMS: Positive features from his review of systems include some shortness of breath and his recent coughing. He has not had any chest pain and denies any fevers or chills. He has not had any melena or hematochezia. He does report the discomfort in the right groin area and feels a bulge. He also reports significant discomfort with attempts to ambulate and apparently he uses a scooter to get around. PHYSICAL EXAMINATION: GENERAL APPEARANCE: The patient is a very pleasant older man in no obvious distress at rest. He is sitting on the edge of the bed just having finished supper at the time of my visit. He is alert and appears oriented. SKIN: Warm and dry. HEART: Irregular rhythm. LUNGS: Clear to auscultation bilaterally. ABDOMEN: Obese. There are no evident abdominal scars. I do not see a definite scar in the left inguinal area. He is examined supine and standing and with and without Valsalva as to the groin area. He has bilaterally descended testicles without mass and a normal phallus. When standing, there is some prominence of the tissues in the right prepubic area at the general vicinity of where his external ring would be located. Palpating in this area lightly suggests almost a serpiginous pattern of raised ridges in an irregular fashion through this area, perhaps 8 cm in diameter. There is no definite inguinal bulge and no change with Valsalva. When supine, the serpiginous areas seem less prominent. There still is no evidence of a hernia by palpation on the right or left. The abdomen is otherwise soft but full and without any tenderness. EXTREMITIES: Some chronic lower extremity edema with bilateral knee scars consistent with his knee replacements. LABORATORY STUDIES: Today a white count of 8, hemoglobin of 15, hematocrit 47 and a platelet count of 191,000. Chemistry profile today showed a sodium of 133, potassium 4.7, chloride 97, CO2 of 29, BUN of 45, creatinine 2.0 and a glucose of 93. His most recent BNP was 7,367 yesterday. IMAGING STUDIES: The patient has had several imaging studies since admission. He had a CT scan of the abdomen and pelvis on the . This showed no evidence of inguinal hernia. He has fairly advanced degenerative changes in the right hip. He also had a chest CT and chest x-ray with reports as noted in the record. Looking back in his record over the last year or two, he had a previous CT scan of the abdomen and pelvis on the 05 of November. I reviewed these images as well and these also showed no evidence of a definite inguinal hernia on either side. He has also had an ultrasound of the abdomen as recently as June 20. This was focused in the right inguinal area and reported some heterogenous subcutaneous tissue with mildly edematous changes without a focal discreet mass, fluid collection or abscess. No hernia was identified. IMPRESSION: Right groin discomfort with palpable prominence in the area of the prepubic region. There is no evidence of hernia on physical exam and he has had two CT scans of the abdomen and pelvis since October of 2018 as well as several ultrasounds of this region that again show no evidence of hernia. RECOMMENDATIONS: I think the patient's swelling in the groin is most likely to represent just chronic edema similar to the edema of his lower extremities related to his congestive heart failure. He has some chronic edema in his lower extremities. Sitting in particular, will sometimes cause a relative occlusion of the lymphatic outflow and lead to some swelling in the groin area. On standing there was a suggestion of some serpiginous raised areas which could represent some varicose veins of this region. These might not be well demonstrated on an ultrasound done supine and if possible, an ultrasound done with the patient in a standing position might well demonstrate these more effectively. I also think it is possible that some of his mobility issues about which he complains may be more related to his severe right hip arthritis noted on his CT scan than to the skin and subcutaneous tissues changes. It would be easy to believe that the degree of change in the hip joint could readily make it difficult for him to ambulate without significant pain. This may be an avenue to explore as far as improving his mobility. Unfortunately his significant cardiac disease makes him a higher risk for any sort of procedure. CHAD
[2020-08-03] MEDS ORDERED: POTASSIUM CHLORIDE 10 MEQ SR TABLET PO ONE (07:45)
[2020-08-03] MEDS: guaiFENesin/CODEINE SYRUP 5 ML UDC PO PRN (09:19)
[2020-08-03] MEDS: HumaLOG INSULIN (NovoLOG) PER UNIT SC SCH ×2 (09:20→12:19)
[2020-08-03] MEDS: LEVEMIR (INSULIN DETEMIR) 1 UNITS/0.01ML SC SCH (09:20)
[2020-08-03] MEDS: CETIRIZINE (ZyrTEC) 10 MG TAB PO SCH (09:21)
[2020-08-03] MEDS: PANTOPRAZOLE 40MG TAB (PROTONIX) PO SCH (09:21)
--- NOTE | 2020-08-03 09:37 | IPN ---
DATE: 08/02/2020 SUBJECTIVE: Today is the patients 75th birthday and I wished him a happy birthday as I entered the room. He is in good spirits today and offers no complaints. Request that his diuretics be increased further as he did not make much urine in the past 24 hours. He complains of ongoing leg edema. PHYSICAL EXAMINATION: VITAL SIGNS: Temperature 96.5, pulse 94, respiratory rate 18, blood pressure 139/81, saturating 90% on 3 liters nasal cannula. Intake yesterday was 350, and probably not fully recorded and urine output was 525 and again probably not fully recorded. Weight on the bed scale today was not recorded. GENERAL: The patient was seen and examined sitting at the edge of the bed with legs dangling. Obese elderly male smiling in no apparent distress. HEENT: Extraocular muscles are intact. Tongue is moist. NECK: Supple. Jugular veins are elevated. HEART: Heart sounds are irregularly irregular. There is 2+ pitting edema that comes up to the mid thighs. LUNGS: Distant and diminished. He is on nasal cannula. There is no tachypnea or accessory muscle use. There is a defibrillator present in the left chest wall. ABDOMEN: Soft, obese and nontender. EXTREMITIES: There is 2+ leg edema that comes up to the mid thigh. SKIN: Normal temperature. No rashes. NEUROLOGIC: Alert and oriented x3, at baseline mentation. LABORATORY DATA: White count 7.5, hemoglobin 14.8, platelets 191, sodium 133, potassium 4.7, BUN 45, creatinine 2.0. INPATIENT MEDICATIONS: I increased the Lasix to 80 mg IV q. 8 hourly and I ordered metolazone 2.5 mg p.o. x1 dose. The primary team has him on Ceftriaxone 1 gram IV daily. His insulin was adjusted by the primary team. The remainder of medications are unchanged from prior. PROBLEMS: 1. Decompensated combined systolic heart failure right and left ventricle. Patient is grossly volume overloaded and in cardiorenal syndrome. I increased the Lasix to 80 mg IV q. 8 hourly and I also gave a small dose of metolazone for sequential nephron blockade. I am continuing to hold off on his Entresto given the acute kidney injury. 2. CHARLIE on CKD Stage III secondary to cardiorenal syndrome. Patient very easily has acute kidney injury because of his advanced congestive heart failure, when he is well-diuresed creatinine is usually around mid 1. I have increased the Lasix and also have given him a small dose of metolazone, continue to hold Entresto in view of acute kidney injury. 3. Hypervolemic hyponatremia, it is improving with diuresis and with correction of his fluid overload. 4. Hyperkalemia, it has improved with the diuretics. 5. Right lower quadrant discomfort with inguinal hernia. Patient is going to be evaluated by General Surgery while he is in-house. 6. Hypertension. Blood pressures are acceptable. He is receiving diuretics. His Entresto is on hold because of acute kidney injury. MTDD
--- NOTE | 2020-08-03 12:06 | DS.PDOC ---
Discharge Summary General Date of Admission Jul 30, 2020 at 09:37 Date of Discharge 08/03/20 Discharge Summary PROCEDURES PERFORMED DURING STAY: [None]. ADMITTING DIAGNOSES: Shortness of breath Hypotension CHARLIE Hemoptysis/cough UTI Hyponatremia Right lower quadrant pain Nonsustained V-tach DM Atrial fibrillation, chronic HTN DISCHARGE DIAGNOSES: Shortness of breath Hypotension CHARLIE Hemoptysis/cough UTI Hyponatremia Right lower quadrant pain Nonsustained V-tach DM Atrial fibrillation, chronic HTN COMPLICATIONS/CHIEF COMPLAINT: Acute On Chronic Renal Failure, Heatemesis. HISTORY OF PRESENT ILLNESS: 74-year-old male with past medical history of systolic congestive heart failure with ejection fraction of 10%, chronic atrial fibrillation, history of kidney stones, history of epistaxis, hypertension, diabetes mellitus admitted for close observation and management of acute hemoptysis, shortness of breath. HOSPITAL COURSE: During hospital stay following issue addressed Shortness of breath Secondary to systolic CHF Patient received treatment with Lasix IV I's and O's Hypotension Most likely secondary to CHF exacerbation and severely compromised cardiac function Blood pressure improved and stable CHARLIE Improved Most likely secondary to volume overload due to CHF exacerbation Continue to monitor Hemoptysis/cough Resolved Discussed with Dr. Slaed on admission, no need for bronchoscopy to further assess Aspirin on hold Follow-up with counter roller in the outpatient settings Swallowing evaluation done, diet modified Continue inhalers UTI Patient complains of suprapubic pain Patient received treatment with ceftriaxone Hyponatremia Resolved Right lower quadrant pain Dr. Dickerson consulted patient. Most likely patient developed bowel edema with varicose veins secondary to CHF exacerbation. No surgical intervention indicated Nonsustained V-tach QTc prolonged I discontinued Zofran Follow-up with crusher wet ground mica in the outpatient settings DM Poorly controlled diabetes with HbA1c 10.2 Diabetes diet Detemir twice a day Insulin sliding scale Patient will need close follow-up with PCP to adjust the dose of insulin Atrial fibrillation, chronic Rate controlled on beta blockers I will not initiate anticoagulation therapy due to hemoptysis I will defer decision to crus[facility] ground m[facility] Dr. Biswas HTN -Stable -C/w home meds, holding diuretics DISCHARGE MEDICATIONS: Please see below. ALLERGIES: Please see below. PHYSICAL EXAMINATION ON DISCHARGE: VITAL SIGNS: Please see below. GENERAL APPEARANCE: NAD HEENT: no scleral icterus, no JVD, EOMI CARDIOVASCULAR: Irregularly irregular LUNGS: Diminished lung sounds ABDOMEN: soft & not tender w palpitation, no rebound, obese MUSCULOSKELETAL: +2 nonpitting edema INTEGUMENT: no generalized palor NEUROLOGICAL: cranial nerve function from 2-12 intact intact, follows commands, speech not dysarthric LABORATORY DATA: Please see below. IMAGING: [facility] NAME: JENNI KELLEY : 1945 MEDICAL REC #: [id number] ROOM: [facility] ACCOUNT: [id number] ORDERING DOCTOR: KASEY MINOR DO PATIENT STATUS: ADM IN DICTATING DOCTOR: Norbert Biswas MD REPORT #: [id number] cc: [~ rep ct ivnm] ECHOCARDIOGRAM-DOPPLER REPORT Printed: [~ rep prt dt last] [~ rep prt tm last] Page 2 of [address] [address] ECHOCARDIOGRAM-DOPPLER REPORT ECHOCARDIOGRAM-DOPPLER REPORT Printed: [~ rep prt dt last] [~ rep prt tm last] Page 1 of 1 DATE OF PROCEDURE: 08/02/2020 Age: 75 Gender: Male Height: 188 cm Weight: 140 kg REFERRING PHYSICIAN: Kasey Minor MD INDICATION: Edema MEASUREMENTS: IVS 1.1 LV 6.5 LVPW 1.3 LA 4.8 Aorta 3.5 IVC 2.8 FINDINGS: This study is of fair technical quality with difficult visualization in corresponding to the patient's body habitus. Underlying atrial fibrillation with controlled rate. Left ventricle is dilated and globally severely hypokinetic. I estimate overallejection fraction (EF) approximately 20 to 25% and based on limited views. Right ventricle is also dilated and hypokinetic. There is severe biatrial enlargement. Aortic valve has 3 cusps. It is minimally sclerotic, but has normal mobility. There are mild degenerative abnormalities of mitral valve, butmobility of leaflets is preserved. Tricuspid and pulmonary valves appear normal. Small noncompressive pericardial effusion is present. Inferior vena cava is dilated without appreciable collapse with inspiration indicative of veryhigh central venous pressure. Aortic root and aortic arch appear normal. Doppler interrogation of aortic valve reveals no significant stenosis or insufficiency. There is approximately mild to moderate mitral insufficiency andlikely related to LV dysfunction and secondary ischemic mitral insufficiency. There is at least moderate tricuspid insufficiency. Calculated pulmonary arterypressure is at minimum in mid to high 60s corresponding to moderately severe pulmonary hypertension. Trace pulmonic insufficiency is noted. Evaluation of diastolic function is inconclusive due to underlying atrial fibrillation. CONCLUSIONS: 1. Study is of fair technical quality. Underlying atrial fibrillation with controlled rate. 2. Dilated globally hypokinetic left ventricle with overall estimated left ventricular ejection fraction (LVEF) 20 to 25%. 3. Dilated hyperkinetic right ventricle. 4. Severe biatrial enlargement. 5. Competent aortic valve. 6. Mild to moderate right ischemic mitral insufficiency. 7. At least moderate tricuspid insufficiency. 8. Very high central venous pressure and at least moderately severe pulmonary hypertension. 9. Small non-compressive pericardial effusion. 10. Pacemaker implantable cardioverter defibrillator (ICD) electrodes apparentin right-sided heart chambers. DD: Norbert Biswas MD 08/02/201899 DT: JOSEF 08/02/202112 DS: DS2: [~ rep ct labl] PROGNOSIS: Fair ACTIVITY: [As tolerated]. DIET: Cardiac/diabetes DISPOSITION: . Home DISCHARGE INSTRUCTIONS: Follow-up with [facility] mica and PCP DISCHARGE CONDITION: [Stable]. TIME SPENT ON DISCHARGE: Greater than 40 minutes. Vital Signs/I&Os Vital Signs Date Time Temp Pulse Resp B/P (MAP) Pulse Ox O2 Delivery O2 Flow Rate FiO2 08/03/20 08:00 96.6 94 18 123/74 (90) 96 Room Air 08/03/20 00:00 3.0 I&O- Last 24 Hours up to 6 AM 08/03/20 06:00 Intake Total 1085 ml Output Total 3325 ml Balance -2240 ml Laboratory Data Labs 24H Laboratory Tests 2 08/02/20 16:37: Bedside Glucose (Misc Panel) 204H 08/02/20 19:47: Bedside Glucose (Misc Panel) 214H 08/03/20 04:46: Anion Gap 4L, Glomerular Filtration Rate 52.7, Calcium Level 8.7L CBC/BMP Laboratory Tests 08/03/20 04:46 FSBS Laboratory Tests Test 08/02/20 16:37 08/02/20 19:47 Range/Units Bedside Glucose (Misc Panel) 204 214 83-110 MG/DL Microbiology Microbiology 08/01/20 Urine Culture - Final, Complete Escherichia Coli Discharge Medications Scheduled Aspirin (Aspirin EC) 81 Mg Tab, 81 MG PO QHS, (Reported) Carvedilol (Carvedilol) 12.5 Mg Tablet, 12.5 MG PO BID, (Reported) Cholecalciferol (Vitamin D3) (Vitamin D3) 1,000 Unit Tablet, 1,000 UNITS PO DAILY, (Reported) Febuxostat (Febuxostat) 80 Mg Tablet, 80 MG PO DAILY, (Reported) Insulin Glargine,Hum.rec.anlog (Addison Solostar) 300 Unit/Ml Inj, 10 UNITS SC QHS, (Reported) Sacubitril/Valsartan (Entresto 24 mg-26 mg Tablet) 1 Each Tablet, 1 TAB PO BID, (Reported) Sitagliptin (Januvia) 50 Mg Tab, 50 MG PO DAILY, (Reported) Torsemide (Torsemide) 100 Mg Tablet, 100 MG PO DAILY, (Reported) Scheduled PRN Fluticasone Propionate (Fluticasone Propionate) 50 Mcg/Act Spr, 1 SPRAY NARES BID PRN for NASAL CONGESTION, (Reported) Allergies Coded Allergies: No Known Allergies (Unverified , 11/09/19) KASEY MINOR DO Aug 03, 2020 12:06
--- NOTE | 2020-08-04 07:50 | IPN ---
DATE: 08/03/2020 SUBJECTIVE: Patient seen and examined this morning at the bedside. He diuresed very satisfactorily the past 24 hours after receiving I.V. Lasix plus oral Metolazone. He reports his leg edema has significantly improved and he is saturating well on room air. He is net negative 3.5 liters in the past 24 hours. He wants to go home. PHYSICAL EXAMINATION: VITAL SIGNS: Temperature 97.2, pulse 84, respiratory rate 20, blood pressure 126/87, saturating 92 to 96% on room air. Intake yesterday was 880. Urine output was 3 liters, net negative 2 liters yesterday and thus far today is also net negative 1.5 liters. Weight on the bed scale today 140.3 kg. GENERAL: Patient was seen sitting out of bed to the chair, awake, alert and oriented, in no apparent distress. HEENT: Extraocular muscles are intact. Tongue is moist. NECK: Supple. Jugular veins are elevated. HEART: Heart sounds are irregularly irregular. There is edema that has improved as compared to yesterday. LUNGS: Distant, but there is no crackle or rale. He is comfortable on room air. CHEST: There is a defibrillator in the left chest wall. ABDOMEN: Soft, obese and nontender. EXTREMITIES: Negative for clubbing or cyanosis. There is peripheral edema that has improved from prior that comes up to the knee. SKIN: Normal temperature and turgor. LABORATORY DATA: ANCA and anti-GBM were negative. Sodium 132, potassium 3.5, bicarbonate 34, BUN 42, creatinine 1.6. Hemoglobin 14.8. INPATIENT MEDICATIONS: Were reviewed by myself. He was given a dose of potassium chloride orally 40 mEq. Otherwise, there was no change in medications as compared to yesterday. PROBLEMS: 1. CHARLIE on CKD stage 3 secondary to cardiorenal syndrome: Has improved with combination diuretics; Lasix plus Metolazone. He has diuresed nicely over the past 24 hours, his renal function has improved. He can resume his low dose Entresto at this point. 2. Combined biventricular systolic heart failure: His volume overload has improved, but he has not yet compensated. He is receiving Lasix 80 I.V. every 8 hours presently and has also gotten a dose of Metolazone yesterday. Primary team plans to discharge him. I discussed with the patient regarding restarting his Torsemide at home and I advised him to come to the nephrology office for a follow-up appointment in one week. He can also resume his Entresto as renal function has improved. 3. Hypokalemia: It is secondary to combination loop and Thiazide diuretic. He received a dose of potassium chloride this morning. He is being restarted on Entresto which will help with his potassium. 4. Hypervolemic hyponatremia: It will improve with diuresis and correction of the fluid overload. 5. Hypertension: Blood pressures are acceptable. He can resume Entresto at this point. MTDD
--- NOTE | 2020-08-04 22:44 | ECGEPIP ---
[facility] Test Date: 2020-08-02 Pat Name: JENNI KELLEY Department: Room: Z6512-31 Gender: Male Deliverer Food: IRINA : 1945 Requested By: KASEY MINOR Order Number: [id number] Reading MD: Fabricio Frank Measurements Intervals [place] Rate: 96 P: PA: 0 QRS: 148 QRSD: 133 T: 86 QT: 416 QTc: 526 Interpretive Statements ATRIAL FIBRILLATION Nonspecific intraventricular conduction delay Poor R wave progression POSSIBLE INFERIOR MYOCARDIAL INFARCTION, PROBABLY OLD Possible Lateral myocardial infarct (age undetermined) Rightward axis. Slightly decreased heart rate compared with 07/30/2020 Electronically Signed on 08-04-2020 22:43:42 EDT by Fabricio Frank
== END 2020-08-03 16:40 | disposition home health service (06) | DRG 291 ==
LOC: M ED 06:24 → M ED INP 09:37 → ENRESERV 10:04 → M MSPAV 11:26 → M PCU 08-01 17:21
PROVIDERS: ADMIT Internal Medicine; ATTEND Internal Medicine
DX: I13.0 Hypertensive heart and chronic kidney disease with heart failure and stage 1 through stage 4 chronic kidney disease, or unspecified chronic kidney disease (principal); I50.23 Acute on chronic systolic (congestive) heart failure; E87.1 Hypo-osmolality and hyponatremia; N17.9 Acute kidney failure, unspecified; I47.2 Ventricular tachycardia; I48.20 Chronic atrial fibrillation, unspecified; N39.0 Urinary tract infection, site not specified; R04.2 Hemoptysis; E11.9 Type 2 diabetes mellitus without complications; I95.9 Hypotension, unspecified; Z87.442 Personal history of urinary calculi; Z79.82 Long term (current) use of aspirin; Z79.899 Other long term (current) drug therapy; Z79.4 Long term (current) use of insulin; Z96.653 Presence of artificial knee joint, bilateral; N18.30 Chronic kidney disease, stage 3 unspecified; E87.5 Hyperkalemia; E66.9 Obesity, unspecified; M10.9 Gout, unspecified; I42.9 Cardiomyopathy, unspecified

== ENCOUNTER → 2020-11-08 | Outpatient (CLI) | payer MEDICARE, MEDICAID ==
[~2020-11-08] MED LIST changes: +D31000TA2 PO; +ISOS1TAB36 PO; -ISOS60TA2 PO; +TORS20TA2 PO
--- NOTE | 2020-11-08 13:19 | REP ---
INDICATION: K42.9 R/O PERIUMBILICAL HERNIA Excessive vomiting. Evaluate for hypertrophic pyloric stenosis. COMPARISON: None. TECHNIQUE: Real time mcknight scale and color B-mode ultrasound examination using curved array transducer. FINDINGS: Directed ultrasound examination of the periumbilical region demonstrates complex avascular cystic structure with hyperechoic component measuring 3.3 x 2.6 x 3.3 cm suggesting periumbilical hernia and similar but increased in size when compared with CT dated 07/30/2020. IMPRESSION: Complex collection in the periumbilical/supraumbilical subcutaneous tissue likely representing hernia and similar but increased in size when compared to CT dated 07/30/2020. <Electronically signed by Zachary Saxena > 11/08/20 [id number]
== END ==
LOC: M WHC 11:53
PROVIDERS: ATTEND Student in an Organized Health Care Education/Training Program
DX: K42.9 Umbilical hernia without obstruction or gangrene (principal)
CPT/HCPCS: 76705; G0463

== ENCOUNTER → 2020-12-02 | Outpatient (REF) | payer MEDICARE, MEDICAID | LOC: M LAB REF 17:42 | PROVIDERS: ATTEND Internal Medicine Nephrology | DX: N39.0 Urinary tract infection, site not specified (principal) ==

== ENCOUNTER 2020-12-03 07:28 | Inpatient (IN) | payer MEDICARE, MEDICAID ==
[~2020-12-03] VITALS: Ht 188 cm; Wt 134.5 kg
[~2020-12-03 07:28] MED LIST changes: -TORS20TA2 PO
--- OUTSIDE RECORDS SUMMARY | 2020-12-03 07:34 | CCD ---
Author Author [facility] Organization [facility] Address Unknown Phone Unavailable Care Team Providers Care Marketing Reporting Analyst Name Role Phone Ajit Jeffries Unavailable PROBLEMS Type Condition ICD9-CM Code [id number] Code Onset Dates Condition S tatus W/U Status Risk SNOMED Code Notes Problem Chronic atrial fibrillation I48.2 Active confirmed 832146627 Problem Chronic combined systolic and diastolic congesti ve heart failure I50.42 Active confirmed 927285226008740 Problem Primary osteoarthritis of both knees M17.0 Act mile confirmed 260886763 Problem Type 2 diabetes mellitus with diabetic chronic kidney disease E11.22 Active confirmed 78360150 Problem 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, unspecified trigger J3 0.2 Active confirmed 505872840 Problem Morbid obesity E66.01 Active confirmed 83581 6002 Problem Primary osteoarthritis of right hip M16.11 Acti ve confirmed [id number] Problem 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 0 Active confirmed 33703932 Problem Chronic anxiety F41.9 Active confirmed 1917 90047 Problem Erectile dysfunction, unspecified erectile dysfunction typ e N52.9 Active confirmed 128633282 ALLERGIES No Known Allergies ENCOUNTERS from 1945 to 2020-11-15 Encounter Location Date Provider Diagnosis [facility] Resident [address] [place] [address] 09 Nov, 2020 Ajit Jeffries IMMUNIZATIONS Vaccine Route Administration Date Status Influenza (18 yrs & older) Flublok IM Intramuscular Jul 10, 2018 Administered TDAP 0.5mL (Boostrix) IM Intramuscular December 15, 2018 Administe red SOCIAL HISTORY Tobacco Use: Social History Observation Description Date Details (start date - stop date) Never Smoker Sex Assigned At : Social History Observation Description Sex Assigned At Unknown Education: Question Answer Notes Level of Education: High School Audit Question Answer Notes Total Score: 0 Interpretation: Alcohol Education Language: Question Answer Notes Languages spoken: Korean Jew: Question Answer Notes Jew No jainism beliefs that would impact health care. Drug and Alcohol Question Answer Notes Total Score: 0 Interpretation: No problems reported Alcohol Screening: Question Answer Notes Did you have a drink containing alcohol in the past year? Ye s Points 1 Interpretation Negative How often did you have six or more drinks on one occas ion in the past year? Never (0 points) How many drinks did you have on a typica l day when you were drinking in the past year? 1 or 2 (0 points) How often did you have a drink containing alcohol in t he past year? Monthly or less (1 point) Tobacco Use: Question Answer Notes Are you a: never smoker never smoker REASON FOR REFERRAL No Information VITAL SIGNS No information MEDICATIONS Medication SIG (Take, Route, Frequency, Duration) Notes Start Da te End Date Status May Have - please dispense gel cushion Walker and wheelchair For use daily to prevent skin breakdown for 99 months Oct, Active Febuxostat 80 MG 1 tablet Orally Once a day for 30 days Active Januvia 50 mg 1 tablet Once a day Orally 90 days Orally Once a day Active Tylenol 8 Hour Arthritis Pain 650 MG 2 tablets as needed Orally sherice ry 8 hrs Active Blood Glucose Test Strip - as directed In Vitro Daily before breakfast. DX: E11.22 for 90 day(s) Active Lidocaine Viscous HCl 2 % 15 ml as needed Mouth/Throat every 3 hrs Active Eliquis 5 MG 1 tablet Orally twice a day Not-Taking Wheelchair _ Electric wheelchair for at h ome use and on outings as needed [facility] [id number] [facility] [id number] for 30 days Mar, Active Wheelchair - as directed for at home use and outings [facility] [id number] [facility] [id number] for 30 days Mar, Active Entresto 24-26 MG 1 tablet Orally Twice a day Active Vitamin D-[address] 25 MCG (1000 UT) 1 tablet Orally Once a day for 30 day(s) Jul, Active ROHO Wheelchair Cushion as directed Oct, Active Sildenafil Citrate 20 MG 2 tablet Orally 30 min prior to sexual activity. MDD 5 for 30 day(s) Not-Taking May Have - please dispense grab bar for toilet use daily for mobility. DX: M17.0 for 9999 days Apr, Active May Have - Please dispense transfer tub bench For bathing Daily. DX: R26.89 for 99 months Aug, Active Aspirin 81 MG 1 tablet Orally Once a day for 30 day(s) Not-Taking Optifoam 4 as directed Externally Daily and reapply as needed Sep, Active May Have - please dispense lifeted toilet seat Daily for 99 99 days Mar, Active May Have - rolling walker with seat and brakes dx: m17 Daily for ambulation for 99 months Jul, Active Chux as directed pads Daily, Dx: R32 for 30 day(s) 2 Sep, Active Pen Flynn 32G X 4 MM as directed subcutaneously Daily. DX: Z79.4 for 90 days February, Active Thania Classic Briefs/X-Large - as directed _ Daily, size 46, R32 for 30 day(s) Sep, Active Vitamin D-[address] 25 MCG (1000 UT) 1 tablet Orally Once a day for 30 day(s) Jul, Not-Taking May Have - please dispense 4ww with sea t and brake To use with ambulation Daily for arthritis and mobility impairment for 99 months Jul, Active Toujeo SoloStar Pens 450 U/1.5mL as directed subcutaneously 10 unit s daily Active Fluticasone Propionate 50 MCG/ACT 1 spray in each nost ril Nasally twice daily as needed for 30 days Active BD Lancet Device - as directed In Vitro Daily b efore breakfast. DX: E11.22 for 90 day(s) Active Carvedilol 12.5 MG 1 tab Orally twice a day Active Torsemide 100 MG 1 tablet Orally Daily Active May Have - Please dispense adjustable recliner Daily for 99 99 days Mar, Active PROCEDURES No Information RESULTS No Results REASON FOR VISIT Dennis referral MEDICAL (GENERAL) HISTORY Type Description Date Medical History T2DM, controlled, non-insulin dependent Medical History CHF, systolic and diastolic with dilated cardiomyopathy, Medical History obesity Medical History CKD 3, followed by nephrology/[facility] Medical History Hx of afib with non-sustaine d V-tach s/p defibrillator; amiodarone, carvediolol; Dr. Biswas - cardiology; EF 10% echo 2016 Medical History acute cholecystitis/cholangi tis, s/p ERCP and biliary stent [facility] 07/24 Medical History Klebsiella bacteremia 07/24 (cholangitis ) Medical History fatty liver CT 07/24 Medical History nonsustained V tach [facility] 07/24 Medical History dilated cardiomyopathy Medical History hypokalemia Medical History hyperparathyroidism of renal origin Medical History hypomagnesemia Medical History hypercalcemia Medical History right lower quadrant hernia Medical History Chronic anticoagulation Medical History Other chronic pain Medical History Obstructive jaundice Surgical History defibrillator 2015 Surgical History L total knee 2003 Surgical History R total knee 2003 Surgical History Left inguinal hernia 1996 Hospitalization History Heart failure 2018 Hospitalization History CHF 07/2019 Hospitalization History abdominal pain 07/2020 Goals Section No Information Health Concerns No Information MEDICAL EQUIPMENT No Information MENTAL STATUS No Information FUNCTIONAL STATUS No Information ASSESSMENTS No Information PLAN OF TREATMENT Medication Medication Name Sig Start Date Stop Date Januvia 50 mg 1 tablet Once a day Orally 90 days Orally Once a day Toujeo SoloStar Pens 450 U/1.5mL as directed subcutaneously 10 u nits daily Next Appt Details Provider Name:Ajit Jeffries, 2020-12-12 0 1:30:00 PM, [address] [place] [address], [place], [address], Insurance Providers Payer Name Payer Address Payer Phone Insured Name Patient Relati onship to Insured Coverage Start Date Coverage End Date [facility] [address] [facility] [id number] JENNI KELLEY MEDICAID [facility] [address] [facility] [address] JENNI KELLEY
--- OUTSIDE RECORDS SUMMARY | 2020-12-03 07:34 | CCD ---
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 Active 796413200891374 Problem Morbid obesity E66.01 Active 380500487 Problem correction current use of insulin Z79.4 Active 231786416 Problem Type 2 diabetes mellitus with diabetic chronic kidney disease E11.22 Active 97640917 Problem Chronic atrial fibrillation I48.2 Active 4211 61410 Problem Primary osteoarthritis of both knees M17.0 Act mile 542694451 Problem Other chronic pain G89.29 Active 78927402 Problem Chronic anxiety F41.9 Active 929815105 Problem Tear of skin of right buttock, subsequent encounter S31.811D Active 531339177 Problem Tear of skin of left buttock, sequela S31.821S A ctive 340346531 Problem Stage 3 chronic kidney disease N18.3 Active 4 87424447 Problem Hypertensive heart disease with heart failure I11.0 Active 40850944 Problem Primary osteoarthritis of right hip M16.11 Acti ve 560037434971841 Problem CKD (chronic kidney disease), stage III N18.3 Active 267246351 Problem Obstructive jaundice K83.8 Active 85833242 Problem Chronic anticoagulation Z79.01 Active 46718177 3 Problem Erectile dysfunction, unspecified erectile dysfunction typ e N52.9 Active 168408264 Problem 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, unspecified trigger J3 0.2 Active 695426335 ALLERGIES No Known Allergies ENCOUNTERS from 1945 to 2020-09-09 Encounter Location Date Provider Diagnosis [facility] [place] Resident [address] [place] [address] Sep, Shahid Valeria IMMUNIZATIONS Vaccine Route Administration Date Status Influenza [...] Education Language: Question Answer Notes Languages spoken: Uzbek Jehovah'S Witness: Question Answer Notes Jehovah'S Witness No jainism beliefs that would impact health [...] Notes Start Da te End Date Status Wheelchair _ Electric wheelchair for at h ome use and on outings as needed [facility] [id number] [facility] [id number] for 30 days Mar, Active Thania Classic Briefs/X-Large - as directed _ Daily, size 46, R32 for 30 day(s) Sep, Active Wheelchair - as directed for at home use and outings [facility] [id number] [facility] [id number] for 30 days Mar, Active ROHO Wheelchair Cushion as directed Oct, Active Tylenol 8 Hour Arthritis Pain 650 MG 2 tablets as needed Orally sherice ry 8 hrs Active Januvia 50 mg 1 tablet Once a day Orally 90 days Orally Once a day Active Lidocaine Viscous HCl 2 % 15 ml as needed Mouth/Throat every 3 hrs Active Vitamin D-[address] 25 MCG (1000 UT) 1 tablet Orally Once a day for 30 day(s) Jul, Active Sildenafil Citrate 20 MG 2 tablet Orally 30 min prior to sexual activity. MDD 5 for 30 day(s) Not-Taking Febuxostat 80 MG 1 tablet Orally Once a day for 30 days Active Eliquis 5 MG 1 tablet Orally twice a day Not-Taking Aspirin 81 MG 1 tablet Orally Once a day for 30 day(s) Not-Taking Chux as directed pads Daily, Dx: R32 for 30 day(s) 2 Sep, Active Entresto 24-26 MG 1 tablet Orally Twice a day Active Torsemide 100 MG 1 tablet Orally Daily Active May Have - please dispense 4ww with sea t and brake To use with ambulation Daily for arthritis and mobility impairment for 99 months Jul, Active Optifoam 4 as directed Externally Daily and reapply as needed Sep, Active Carvedilol 12.5 MG 1 tab Orally twice a day Active Toujeo SoloStar Pens 450 U/1.5mL as directed subcutaneously 10 unit s daily Active May Have - Please dispense adjustable recliner Daily for 99 99 days Mar, Active Pen [place] 32G X 4 MM as directed subcutaneously Daily. DX: Z79.4 for 90 days February, Active Vitamin D-[address] 25 MCG (1000 UT) 1 tablet Orally Once a day for 30 day(s) Jul, Not-Taking BD Lancet Device - as directed In Vitro Daily b efore breakfast. DX: E11.22 for 90 day(s) Active May Have - please dispense gel cushion Walker and wheelchair For use daily to prevent skin breakdown for 99 months Oct, Active Blood Glucose Test Strip - as directed In Vitro Daily before breakfast. DX: E11.22 for 90 day(s) Active Fluticasone Propionate 50 MCG/ACT 1 spray in each nost ril Nasally twice daily as needed for 30 days Active May Have - Please dispense transfer tub bench For bathing Daily. DX: R26.89 for 99 months Aug, Active May Have - please dispense lifeted toilet seat Daily for 99 99 days Mar, Active May Have - rolling walker with seat and brakes dx: m17 Daily for ambulation for 99 months Jul, Active May Have - please dispense grab bar for toilet use daily for mobility. DX: M17.0 for 9999 days Apr, Active PROCEDURES No Information RESULTS No Results REASON FOR VISIT no showed MEDICAL (GENERAL) HISTORY Type Description Date Medical History T2DM, controlled, non-insulin dependent Medical History CHF, systolic and diastolic with dilated cardiomyopathy, Medical History obesity Medical History CKD 3, [facility] Medical History Hx of afib with non-sustaine d V-tach s/p defibrillator; amiodarone, carvediolol; Dr. Biswas - cardiology; EF 10% echo 2016 Medical History acute cholecystitis/cholangi tis, s/p ERCP and biliary stent [facility] 07/24 Medical History Klebsiella bacteremia 07/24 (cholangitis ) Medical History fatty liver CT 07/24 Medical History nonsustained V tach [facility] 07/24 Medical History dilated cardiomyopathy Medical History hypokalemia Medical History hyperparathyroidism of renal origin Medical History hypomagnesemia Medical History hypercalcemia Medical History right lower quadrant hernia Surgical History defibrillator 2015 Surgical History L total knee 2003 Surgical History R total knee 2003 Surgical History Left inguinal hernia 1997 Hospitalization History Heart failure 2018 Hospitalization History CHF 07/2019 Hospitalization History abdominal pain 07/2020 Goals Section No Information Health Concerns No Information MEDICAL EQUIPMENT No Information MENTAL STATUS No Information FUNCTIONAL STATUS No Information ASSESSMENTS No Information PLAN OF TREATMENT No Information Insurance Providers Payer Name Payer Address Payer Phone Insured Name Patient Relati onship to Insured Coverage Start Date Coverage End Date [facility] [address] [facility] [phone] JENNI VARGAS MEDICAID [employer] [address] [facility] [address] JENNI VARGAS
--- OUTSIDE RECORDS SUMMARY | 2020-12-03 07:34 | CCD | Continuity of Care Document ---
Author Author [facility] M[facility] Organization Unknown Address [address], [address] [place] [address] Phone [phone] Care Team Providers Care Personal Injury Legal Assistant Name Role Phone Rohan Saleh DO AUTM [phone] AUTM Unavailable Ajit Jeffries D.O. AUTM [phone] Andrzej Ferreira D.O. AUTM [phone] Problems Active Problems Provider Date Essential hypertension Jonathan Oleary M.D. Onset: 01/05 Social History Type Date Description Comments Sex Unknown ETOH Use Denies alcohol use Recreational Drug Use Denies Drug Use Tobacco Use Start: Unknown Denies Smoking Allergies, Adverse Reactions, Alerts Description No Known Drug Allergies Medications Active Medications SIG Qnty Indications Ordering Provide r Date Saline Mist [place] 0.65% Solution 2 sprays to each nostril 4-5 times daily as needed 132ml R04.0 Chip coleman MD 12/02/2019 Entresto 24-26mg Tablets 1tab po bid Unknown Januvia 50mg Tablets 1tab po qd Unknown Torsemide 100mg Tablets 1/2ta b po qd Unknown Carvedilol 12.5mg Tablets 1ta b po bid Unknown Fluticasone Propionate 50mcg/Act Suspension Unknown Febuxostat 80mg Tablets Take One Tablet By Mouth Once Daily Unknown Aspirin [address] take 1 tab by mouth daily Unknown Toujeo Max Solostar 300Unit/ML Solution Pen-Inject 10 Units qd Unknown Lidocaine Hydrochloride Viscous 2% Solution Swish as Needed Unknown Immunizations Description No Information Available Vital Signs Date Vital Result Comment 09/21/2020 10:24am BP Systolic 110 mmHg BP Diastolic 64 mmHg Height 74 inches 6'2" Weight 283.00 lb BMI (Body Mass Index) 36.3 kg/m2 [place] Body Weight 190 lb Weight 128.369 kg BSA (Body Surface Area) 2.52 m2 12/02/2019 10:59am Height 74 inches 6'2" Weight 265.00 lb BMI (Body Mass Index) 34.0 kg/m2 [place] Body Weight 190 lb Weight 120.204 kg BSA (Body Surface Area) 2.45 m2 Results Description No Information Available Procedures Description No Information Available Medical Devices Description No Information Available Encounters Description No Information Available Assessments Description No Information Available Plan of Treatment 12/02/2019 - Fernando Munoz II, PA-C* R04.0 Epistaxis* New Medication:* Saline Mist [place] 0.65 % - 2 sprays to each nostril 4-5 times daily as needed * Comments:* He is doing well. Cautery sites are healing as expected. Patient is counseled general nasal hygiene. Patient is to use humidifier in winter time and to lubricate anterior nasal cavity with a moisturizer such as Vaseline. Use of nasal saline sprays is advised. * Follow up:* 2w Functional Status Description No Information Available Mental Status Description No Information Available Referrals Refer to Reason for Referral Status Appt Date Joaqiun Fu M.D. RIGHT GROIN PAIN Scheduled 09/21/[address] [place] [address] [address] [place] [address] [phone]
--- OUTSIDE RECORDS SUMMARY | 2020-12-03 07:34 | CCD ---
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 Active confirmed 457867064706076 Problem Primary osteoarthritis of both knees M17.0 Act mile confirmed 021646674 Problem Type 2 diabetes mellitus with diabetic chronic kidney disease E11.22 Active confirmed 55179642 Problem 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, unspecified trigger J3 0.2 Active confirmed 392715289 Problem Morbid obesity E66.01 Active confirmed 23576 6002 Problem Primary osteoarthritis of right hip M16.11 Acti ve confirmed 637553689281462 Problem ferry terminal agent 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 0 Active confirmed 74948038 Problem Chronic anxiety F41.9 Active confirmed 1917 08719 Problem Erectile dysfunction, unspecified erectile dysfunction typ e N52.9 Active confirmed 369170364 ALLERGIES No Known Allergies ENCOUNTERS from 1945 to 2020-11-11 Encounter Location Date Provider Diagnosis [address] [address] Nov, Ajit Jeffries Umbilical hernia without obs truction and without gangrene K42.9 IMMUNIZATIONS Vaccine Route Administration Date Status Influenza [...] Education Language: Question Answer Notes Languages spoken: Cameroonian Sabianism: Question Answer Notes Sabianism No moravian beliefs that would impact health care. Drug [...] ome use and on outings as needed [facility] [id number] [facility] [id number] for 30 days Mar, Active Wheelchair - as directed for at home use and outings [facility] [id number] [facility] [id number] for 30 days Mar, Active Entresto 24-26 [...] for 30 day(s) 2 Sep, Active Pen [place] 32G X 4 MM as directed subcutaneously [...] Information RESULTS No Results REASON FOR VISIT Hernia MEDICAL (GENERAL) HISTORY Type Description Date Medical History T2DM, controlled, non-insulin dependent Medical History CHF, systolic and diastolic with dilated cardiomyopathy, Medical History obesity Medical History CKD 3, followed by nephrology/[facility] Medical History Hx of afib with non-sustaine d V-tach s/p defibrillator; amiodarone, carvediolol; Dr. Biswas - cardiology; EF 10% echo 2016 Medical History acute cholecystitis/cholangi tis, s/p ERCP and biliary stent [facility] 07/24 Medical History Klebsiella bacteremia 07/24 (cholangitis ) Medical History fatty liver CT 07/24 Medical History nonsustained V tach [facility] 07/24 Medical History dilated cardiomyopathy [...] inguinal hernia 1996 Hospitalization History Heart failure 2016, 2018 Hospitalization History CHF 07/2019 Hospitalization History abdominal pain 07/2020 Goals Section No Information Health Concerns No Information MEDICAL EQUIPMENT No Information MENTAL STATUS No Information FUNCTIONAL STATUS No Information ASSESSMENTS Encounter Date Diagnosis Assessment Notes Treatment Notes Treatm ent Clinical Notes Nov, Umbilical hernia without obs truction and without gangrene (ICD-10 - K42.9) Ultrasound performed on 11/08/20 indicates a complex collection in the periumbilical/supraumbilical subjective cutaneous tissue likely representing a hernia, increased in size when compared to CT dated on 07/30/20. As mentioned in yesterday's visit note, we will send a referral to Dr. Collins for further evaluation. PLAN OF TREATMENT Medication Medication Name Sig Start Date Stop Date Januvia 50 mg 1 tablet Once a day Orally 90 days Orally Once a day Toujeo SoloStar Pens 450 U/1.5mL as directed subcutaneously 10 u nits daily Treatment Notes Assessment Notes Clinical Notes Umbilical hernia without obstruction and without gangrene Ultrasound performed on 11/08/20 indicates a complex collection in the periumbilical/supraumbilical subjective cutaneous tissue likely representing a hernia, increased in size when compared to CT dated on 07/30/20. As mentioned in yesterday's visit note, we will send a referral to Dr. Collins for further evaluation. Insurance Providers Payer Name Payer Address Payer Phone Insured Name Patient Relati onship to Insured Coverage Start Date Coverage End Date MEDICAID [employer] [address] [facility] [id number] JENNI VARGAS [facility] [address] [facility] [phone] JENNI VARGAS self
--- OUTSIDE RECORDS SUMMARY | 2020-12-03 07:34 | CCD ---
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 Active confirmed 080728823607768 Problem Primary osteoarthritis of both knees M17.0 Act mile confirmed 938427251 Problem Type 2 diabetes mellitus with diabetic chronic kidney disease E11.22 Active confirmed 27622475 Problem 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, unspecified trigger J3 0.2 Active confirmed 949511871 Problem Morbid obesity E66.01 Active confirmed 33071 6002 Problem Primary osteoarthritis of right hip M16.11 Acti ve confirmed 782727288963596 Problem 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 0 Active confirmed 18675011 Problem Chronic anxiety F41.9 Active confirmed 1917 44389 Problem Erectile dysfunction, unspecified erectile dysfunction typ e N52.9 Active confirmed 122276173 ALLERGIES No Known Allergies ENCOUNTERS from 1945 to 2020-11-12 Encounter Location Date Provider Diagnosis [facility] [place] Resident [address] [place] [address] 02 Nov, 2020 Ajit Jeffries Umbilical hernia without obs truction and without gangrene K42.9 and Type 2 diabetes mellitus with diabetic chronic kidney disease E11.22 IMMUNIZATIONS Vaccine Route Administration Date Status Influenza [...] Education Language: Question Answer Notes Languages spoken: Wolof Taoist: Question Answer Notes Taoist No rastafari beliefs that would impact health care. Drug [...] REASON FOR REFERRAL No Information VITAL SIGNS Weight 296 lbs Nov, Height 74 in Nov, BMI 38.00 kg/m2 Nov, Heart Rate 87 /min Nov, Respiratory Rate 18 /min Nov, Temperature 97.0 degrees Fahrenheit Nov, Oximetry 96 Nov, Blood pressure systolic 108 mm Hg Nov, Blood pressure diastolic 60 mm Hg Nov, MEDICATIONS Medication SIG (Take, Route, Frequency, Duration) [...] ome use and on outings as needed [facility] [id number] [facility] [id number] for 30 days Mar, Active Wheelchair - as directed for at home use and outings [facility] [id number] [facility] [id number] for 30 days Mar, Active Entresto 24-26 [...] for 30 day(s) 2 Sep, Active Pen [place] 32G X 4 MM as directed subcutaneously [...] Information RESULTS No Results REASON FOR VISIT Abdominal protrusion MEDICAL (GENERAL) HISTORY Type Description Date Medical History T2DM, controlled, non-insulin dependent Medical History CHF, systolic and diastolic with dilated cardiomyopathy, Medical History obesity Medical History CKD 3, followed by nephrology/[facility] Medical History Hx of afib with non-sustaine d V-tach s/p defibrillator; amiodarone, carvediolol; Dr. Biswas - cardiology; EF 10% echo 2016 Medical History acute cholecystitis/cholangi tis, s/p ERCP and biliary stent [facility] 07/24 Medical History Klebsiella bacteremia 07/24 (cholangitis ) Medical History fatty liver CT 07/24 Medical History nonsustained V tach [facility] 07/[facility] Medical History dilated cardiomyopathy [...] inguinal hernia 1997 Hospitalization History Heart failure 2016, 2018 Hospitalization History CHF 07/2019 Hospitalization History abdominal pain 07/2020 Goals Section No Information Health Concerns No Information MEDICAL EQUIPMENT No Information MENTAL STATUS No Information FUNCTIONAL STATUS No Information ASSESSMENTS Encounter Date Diagnosis Assessment Notes Treatment Notes Treatm ent Clinical Notes Nov, Umbilical hernia without obs truction and without gangrene (ICD-10 - K42.9) Based on physical exam findings, I have high suspicion for periumbilical hernia. We will obtain an ultrasound of the patient's abdomen this afternoon for confirmation. If a hernia is in fact present, we will place a referral to Dr. Collins for further management. In regards to patient's right lower quadrant discomfort, I agree that it is consistent with subcutaneous edema. This was discussed with patient in detail as well as ways in which this can be improved, including regular physical activity. Nov, Type 2 diabetes mellitus wit h diabetic chronic kidney disease (ICD- 10 - E11.22) A1c of 10.2 during hospitalization in 07/26. Have been unable to monitor 2/2 to no-shows and reschedules. Pt reports monitoring his sugar at home, fasting readings of roughly 140, though he did not bring his meter for review. He will bring his meter with him to his next appt 4-6 weeks. Given his A1c, poor control is evident. Will consider increasing patient's long-acting insulin. Very loose A1c goal (~7.5) considering number of comorbidities and risks of hypoglycemia. Patient agreeable with plan. PLAN OF TREATMENT Medication Medication Name Sig Start Date Stop Date Januvia 50 mg 1 tablet Once a day Orally 90 days Orally Once a day Toujeo SoloStar Pens 450 U/1.5mL as directed subcutaneously 10 u nits daily Treatment Notes Assessment Notes Clinical Notes Umbilical hernia without obstruction and without gangrene Based on physical exam findings, I have high suspicion for periumbilical hernia. We will obtain an ultrasound of the patient's abdomen this afternoon for confirmation. If a hernia is in fact present, we will place a referral to Dr. Collins for further management. In regards to patient's right lower quadrant discomfort, I agree that it is consistent with subcutaneous edema. This was discussed with patient in detail as well as ways in which this can be improved, including regular physical activity. Type 2 diabetes mellitus with diabetic chronic kidney diseas e A1c of 10.2 during hospitalization in 07/26. Have been unable to monitor 2/2 to no-shows and reschedules. Pt reports monitoring his sugar at home, fasting readings of roughly 140, though he did not bring his meter for review. He will bring his meter with him to his next appt 4-6 weeks. Given his A1c, poor control is evident. Will consider increasing patient's long-acting insulin. Very loose A1c goal (~7.5) considering number of comorbidities and risks of hypoglycemia. Patient agreeable with plan. Treatment Notes Test Name Order Date Ultrasound : Abdomen 2020-11-08 Next Appt Details 4-6 weeks Reason:DM Follow Up:4-6 weeksDM Insurance Providers Payer Name Payer Address Payer Phone Insured Name Patient Relati onship to Insured Coverage Start Date Coverage End Date MEDICAID [email or web address] [address] [facility] [address] JENNI VARGAS [facility] [address] [facility] [phone] JENNI VARGAS
--- OUTSIDE RECORDS SUMMARY | 2020-12-03 07:34 | CCD ---
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 Active 867582572 Problem Type 2 diabetes mellitus with diabetic chronic kidney disease E11.22 Active 83883092 Problem Chronic atrial fibrillation I48.2 Active 4267 92603 Problem Primary osteoarthritis of both knees M17.0 Act mile 708604619 Problem Other chronic pain G89.29 Active 20772502 Problem Chronic anxiety F41.9 Active 870225123 Problem Tear of skin of right buttock, subsequent encounter S31.811D Active 585497767 Problem Tear of skin of left buttock, sequela S31.821S A ctive 665855411 Problem Stage 3 chronic kidney disease N18.3 Active 4 71119484 Problem Hypertensive heart disease with heart failure I11.0 Active 36913504 Problem Primary osteoarthritis of right hip M16.11 Acti ve 789529155386618 Problem CKD (chronic kidney disease), stage III N18.3 Active 218911265 Problem Obstructive jaundice K83.8 Active 60793023 Problem Chronic anticoagulation Z79.01 Active 31671913 3 Problem Erectile dysfunction, unspecified erectile dysfunction typ e N52.9 Active 632550303 Problem 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, unspecified trigger J3 0.2 Active 279072008 ALLERGIES No Known Allergies ENCOUNTERS from 1945 to 2020-09-08 Encounter Location Date Provider Diagnosis [facility] Res[facility] [address] [place] [address] Apr, Ajit Jeffries Type 2 diabetes mellitus wit h diabetic chronic kidney disease E11.22 ; Primary osteoarthritis of both knees M17.0 ; Hyperuricemia E79.0 ; Chronic atrial fibrillation I48.2 ; Chronic combined systolic and diastolic congestive heart failure I50.42 ; Hernia of anterior abdominal wall K43.9 ; Lipid screening Z13.220 ; Cough in adult R05 and 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, unspecified trigger J30.2 IMMUNIZATIONS Vaccine Route Administration Date Status Influenza [...] Education Language: Question Answer Notes Languages spoken: Haitian Caodaism: Question Answer Notes Caodaism No religion beliefs that would impact health care. Drug [...] FOR REFERRAL No Information VITAL SIGNS Weight 293 lbs Apr, Height 74 in Apr, BMI 37.61 kg/m2 Apr, Heart Rate 110 /min Apr, Respiratory Rate 20 /min Apr, Temperature 98.1 degrees Fahrenheit Apr, Oximetry 94% RA Apr, Blood pressure systolic 114 mm Hg Apr, Blood pressure diastolic 72 mm Hg Apr, MEDICATIONS Medication SIG (Take, Route, Frequency, Duration) Notes Start Da te End Date Status Wheelchair _ Electric wheelchair for at h ome use and on outings as needed [facility] [id number] [facility] [id number] for 30 days Mar, Active Thania Classic Briefs/X-Large - as directed _ Daily, size 46, R32 for 30 day(s) Sep, Active Wheelchair - as directed for at home use and outings [facility] [id number] [facility] [id number] for 30 days Mar, Active ROHO Wheelchair [...] for 99 99 days Mar, Active Pen [place] 32G X 4 MM as directed subcutaneously [...] Information RESULTS No Results REASON FOR VISIT 1 month follow up labwork MEDICAL (GENERAL) HISTORY Type Description Date Medical History T2DM, controlled, non-insulin dependent Medical History CHF, systolic and diastolic with dilated cardiomyopathy, Medical History obesity Medical History CKD 3, followed by nephrology/W [facility] Medical History Hx of afib with non-sustaine d V-tach s/p defibrillator; amiodarone, carvediolol; Dr. Biswas - cardiology; EF 10% echo 2016 Medical History acute cholecystitis/cholangi tis, s/p ERCP and biliary stent [facility] 07/24 Medical History Klebsiella bacteremia 07/24 (cholangitis ) Medical History fatty liver CT 07/24 Medical History nonsustained V [facility] 07/[facility] Medical History dilated cardiomyopathy Medical [...] Notes Treatment Notes Treatm ent Clinical Notes Apr, Type 2 diabetes mellitus wit h diabetic chronic kidney disease (ICD- 10 - E11.22) Continue on current medication regimen. A1c to be obtained prior to next visit. Changes in medications will be made based upon the results. Patient also asked to bring in his monitor for review. Apr, Primary osteoarthritis of both knees (ICD-10 - M 17.0) Patient has an extended history of bilateral hip osteoarthritis. Uses electric scooter for ambulation. Please see recent telephone counter in regards to prescription to be faxed to [facility]. Apr, Hyperuricemia (ICD-10 - E79.0) Patient has a history of gout. He is on Uloric daily. Uric acid levels ordered at patient's last visit, unfortunately patient is to have the aforementioned laboratory studies performed. We will plan to obtain Plan to obtain uric acid levels for review at next visit. Apr, Chronic atrial fibrillation (ICD-10 - I48.2) Patient is adequately controlled with carvedilol. Previously uncontrolled with amiodarone. Anticoagulated with Eliquis. Denies any abnormal bleeding, bruising. No blood in stool or coughing up blood. Apr, Chronic combined systolic an d diastolic congestive heart failure (ICD-10 - I50.42) Dilated cardiomyopathy. Ejection fraction of approximately 10% via echo from 07/23. ICD placed in 04/21. LVEF stable at 10-15%.Patient is currently on torsemide and Entresto. Continue on current medication regimen. Apr, Hernia of anterior abdominal wall (ICD-10 - K43. 9) Right lower quadrant hernia noted on examination, reducible, stable per patient. Continue to monitor at future visits. Apr, Lipid screening (ICD-10 - Z13.220) Lipids ordered, please see above. Results reviewed with patient. Apr, Cough in adult (ICD-10 - R05) Patient is requesting a refill of a lidocaine mouth spray he uses for extended cough. Apr, 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, unspecified trigger (ICD-10 - J30.2) Refill for fluticasone nasal spray, patient reports good relief. PLAN OF TREATMENT Treatment Notes Assessment Notes Clinical Notes Type 2 diabetes mellitus with diabetic chronic kidney diseas e Continue on current medication regimen. A1c to be obtained prior to next visit. Changes in medications will be made based upon the results. Patient also asked to bring in his monitor for review. Primary osteoarthritis of both knees Pat ient has an extended history of bilateral hip osteoarthritis. Uses electric scooter for ambulation. Please see recent telephone counter in regards to prescription to be faxed to [facility]. Hyperuricemia Patient has a histor y of gout. He is on Uloric daily. Uric acid levels ordered at patient's last visit, unfortunately patient is to have the aforementioned laboratory studies performed. We will plan to obtain Plan to obtain uric acid levels for review at next visit. Chronic atrial fibrillation Patient is a dequately controlled with carvedilol. Previously uncontrolled with amiodarone. Anticoagulated with Eliquis. Denies any abnormal bleeding, bruising. No blood in stool or coughing up blood. Chronic combined systolic and diastolic congestive heart deann lure Dilated cardiomyopathy. Ejection fraction of approximately 10% via echo from 07/23. ICD placed in 04/21. LVEF stable at 10-15%.Patient is currently on torsemide and Entresto. Continue on current medication regimen. Hernia of anterior abdominal wall Right lower quadrant hernia noted on examination, reducible, stable per patient. Continue to monitor at future visits. Lipid screening Lipids ordered, plea se see above. Results reviewed with patient. Cough in adult Patient is requestin g a refill of a lidocaine mouth spray he uses for extended cough. 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, unspecified trigger Refill for fluticasone nasal spray, patient reports good relief. Next Appt Details May 02 Reason:Blood sugar Follow Up:May 02Blood sugar Insurance Providers Payer Name Payer Address Payer Phone Insured Name Patient Relati onship to Insured Coverage Start Date Coverage End Date [employer]ICA[email or web address] [address] [facility] [id number] [address] [facility] [address] [facility] [id number] [place]EN[place]ARGAS
--- OUTSIDE RECORDS SUMMARY | 2020-12-03 07:35 | CCD ---
Author Author [facility] Organization [facility] Address Unknown Phone Unavailable Support Name Relationship Address Phone RE Next Of Kin Unknown Unavailable PAYTON VARGAS Next Of Kin [address] [facility] [address] [place] [address] Payton Vargas ECON [address] [place] [address] [phone] Re-disclosure Warning The records that you are about to access may contain information from federally-assisted alcohol or drug abuse programs. If such information is present, then the following federally mandated warning applies: This information has been disclosed to you from records protected by federal confidentiality rules (42 CFR part 2). The federal rules prohibit you from making any further disclosure of this information unless further disclosure is expressly permitted by the written consent of the person to whom it pertains or as otherwise permitted by 42 CFR part 2. A general authorization for the release of medical or other information is NOT sufficient for this purpose. The Federal rules restrict any use of the information to criminally investigate or prosecute any alcohol or drug abuse patient.The records that you are about to access may contain highly sensitive health information, the redisclosure of which is protected by Article 27-F of the [facility] Public Health law. If you continue you may have access to information: Regarding HIV / AIDS; Provided by facilities licensed or operated by the [facility] Office of Mental Health; or Provided by the [facility] Office for People With Developmental Disabilities. If such information is present, then the following [facility] mandated warning applies: This information has been disclosed to you from confidential records which are protected by state law. State law prohibits you from making any further disclosure of this information without the specific written consent of the person to whom it pertains, or as otherwise permitted by law. Any unauthorized further disclosure in violation of state law may result in a fine or residential sentence or both. A general authorization for the release of medical or other information is NOT sufficient authorization for further disc losure. Family History Family Member Name Family Member Gender Family Member Status Date o f Status Description Data Source(s) Unknown Unknown Problem MEDENT ([facility], ) Encounters Encounter Providers Location Date Indications Data Source(s ) Unknown [address] [facility] [id number] 11/15/2020 12:00:00 AM EST eCW1 ([facility]) Unknown [address] [facility] [place] [address] 11/09/2020 12:00:00 AM EST eCW1 ([facility]) Outpatient [address] [facility] [address] 11/08/2020 12:00:00 AM EST eCW1 ([facility]) Unknown [address] [facility] [address] 09/07/2020 12:00:00 AM EST eCW1 ([facility]) Unknown [address] [facility] [address] 08/26/2020 12:00:00 AM EST eCW1 ([facility]) Unknown [address] [facility] [address] 08/19/2020 12:00:00 AM EST eCW1 ([facility]) Unknown [address] [facility] [address] 08/15/2020 12:00:00 AM EST eCW1 ([facility]) Unknown [address] [facility] [address] 08/12/2020 12:00:00 AM EST eCW1 ([facility]) (TCM) Transition of Care Visit [address] [place] [address] 08/08/2020 12:00:00 AM EST eCW1 ([facility]) Unknown [address] [facility] [address] 08/04/2020 12:00:00 AM EDT eCW1 ([facility]) Unknown [address] [facility] [place] [address] 08/04/2020 12:00:00 AM EDT eCW1 ([facility]) Unknown [address] [facility] [place] [address] 07/29/2020 12:00:00 AM EDT eCW1 ([facility]) Unknown [address] [facility] [place] [address] 04/20/2020 12:00:00 AM EDT eCW1 ([facility]) [place] [address] [facility] [place] [address] 04/19/2020 12:00:00 AM EDT eCW1 ([facility]) Unknown [address] [facility] [place] [address] 04/19/2020 12:00:00 AM EDT eCW1 ([facility]) Unknown [address] [facility] [place] [address] 03/24/2020 12:00:00 AM EDT eCW1 ([facility]) Unknown [address] [facility] [place] [address] 03/16/2020 12:00:00 AM EDT eCW1 ([facility]) [place] [address] [facility] [place] [address] 03/14/2020 12:00:00 AM EDT eCW1 ([facility]) Unknown [address] [facility] [place] [address] 03/11/2020 12:00:00 AM EDT eCW1 ([facility]) Unknown [address] [facility] [place] [address] 03/08/2020 12:00:00 AM EDT eCW1 ([facility]) [facility] [address] [facility] [place] [address] 03/01/2020 12:00:00 AM EDT eCW1 ([facility]) [facility] [address] [facility] [place] [address] 02/23/2020 12:00:00 AM EDT eCW1 ([facility]) [address] [address] 02/23/2020 12:00:00 AM EDT eCW1 ([facility]) [address] [place] [address] 02/22/2020 12:00:00 AM EDT eCW1 ([facility]) [facility] Resident [address] [place] [address] 01/25/2020 12:00:00 AM EDT eCW1 ([facility]) [address] [address] 01/20/2020 12:00:00 AM EDT eCW1 ([facility]) [address] [address] 01/13/2020 12:00:00 AM EDT eCW1 ([facility]) [address] [place] [address] 01/08/2020 12:00:00 AM EDT eCW1 ([facility]) [address] [place] [address] 12/16/2019 12:00:00 AM EDT eCW1 ([facility]) [address] [place] [address] 11/20/2019 12:00:00 AM EST eCW1 ([facility]) [address] [place] [address] 11/10/2019 12:00:00 AM EST eCW1 ([facility]) [address] [place] [address] 11/10/2019 12:00:00 AM EST eCW1 ([facility]) [address] [place] [address] 10/23/2019 12:00:00 AM EST eCW1 ([facility]) [facility] Resident [address] [place] [address] 10/14/2019 12:00:00 AM EST eCW1 ([facility]) [facility] [place] [address] [facility] [address] 10/12/2019 12:00:00 AM EST eCW1 ([facility]) Medications Medication Brand Name Start Date Product Form Dose Route Admi nistrative Instructions Pharmacy Instructions Status Indications Reaction Description Data Source(s) Cholecalciferol 1000 UNT Oral Tablet Vitamin D-[address] 25 MCG (1000 UT) Vitamin D-[address] 25 MCG (1000 UT) 08/05/2020 12:00:00 AM EDT 1.0 {tablet} suspended Vitamin D-[address] 25 MCG (1000 UT) eC ([facility]) Cholecalciferol 1000 UNT Oral Tablet Vitamin D-[address] 25 MCG (1000 UT) Vitamin D-[address] 25 MCG (1000 UT) 08/05/2020 12:00:00 AM EDT 1.0 {tablet} suspended Vitamin D-[address] 25 MCG (1000 UT) eC1 ([facility]) Vitamin D-[address] 25 MCG (1000 UT) Vitamin D-[address] 25 MCG (1000 UT) 08/05/2020 12:00:00 AM EDT 1.0 {tablet} suspende d Vitamin D-[address] 25 MCG (1000 UT) eCW1 ([facility]) Cholecalciferol 1000 UNT Oral Tablet Vitamin D-[address] 25 MCG (1000 UT) Vitamin D-[address] 25 MCG (1000 UT) 08/05/2020 12:00:00 AM EDT 1.0 {tablet} suspended Vitamin D-[address] 25 MCG (1000 UT) eCW1 ([facility]) Cholecalciferol 1000 UNT Oral Tablet Vitamin D-[address] 25 MCG (1000 UT) Vitamin D-[address] 25 MCG (1000 UT) 08/05/2020 12:00:00 AM EDT 1.0 {tablet} suspended Vitamin D-[address] 25 MCG (1000 UT) eCW ([facility]) Cholecalciferol 1000 UNT Oral Tablet Vitamin D-[address] 25 MCG (1000 UT) Vitamin D-[address] 25 MCG (1000 UT) 08/05/2020 12:00:00 AM EDT 1.0 {tablet} suspended Vitamin D-[address] 25 MCG (1000 UT) eCW1 ([facility]) Cholecalciferol 1000 UNT Oral Tablet Vitamin D-[address] 25 MCG (1000 UT) Vitamin D-[address] 25 MCG (1000 UT) 08/05/2020 12:00:00 AM EDT 1.0 {tablet} suspended Vitamin D-[address] 25 MCG (1000 UT) eC ([facility]) Vitamin D-[address] 25 MCG (1000 UT) Vitamin D-[address] 25 MCG (1000 UT) 08/05/2020 12:00:00 AM EDT 1.0 {tablet} active Vitamin D-[address] 25 MCG (1000 UT) [facility] ([facility]) Vitamin D-[address] 25 MCG (1000 UT) Vitamin D-[address] 25 MCG (1000 UT) 08/05/2020 12:00:00 AM EDT 1.0 {tablet} active Vitamin D-[address] 25 MCG (1000 UT) [facility] ([facility]) Cholecalciferol 1000 UNT Oral Tablet Vitamin D-[address] 25 MCG (1000 UT) Vitamin D-[address] 25 MCG (1000 UT) 08/05/2020 12:00:00 AM EDT 1.0 {tablet} suspended Vitamin D-[address] 25 MCG (1000 UT) eC ([facility]) Cholecalciferol 1000 UNT Oral Tablet Vitamin D-[address] 25 MCG (1000 UT) Vitamin D-[address] 25 MCG (1000 UT) 08/05/2020 12:00:00 AM EDT 1.0 {tablet} suspended Vitamin D-[address] 25 MCG (1000 UT) [facility] ([facility]) Cholecalciferol 1000 UNT Oral Tablet Vitamin D-[address] 25 MCG (1000 UT) Vitamin D-[address] 25 MCG (1000 UT) 08/05/2020 12:00:00 AM EDT 1.0 {tablet} suspended Vitamin D-[address] 25 MCG (1000 UT) eCW1 ([facility]) Cholecalciferol 1000 UNT Oral Tablet Vitamin D-[address] 25 MCG (1000 UT) Vitamin D-[address] 25 MCG (1000 UT) 08/03/2020 12:00:00 AM EDT 1.0 {tablet} active Vitamin D-[address] 25 MCG (1000 UT) eCW1 ([facility]) Vitamin D-[address] 25 MCG (1000 UT) Vitamin D-[address] 25 MCG (1000 UT) 08/03/2020 12:00:00 AM EDT 1.0 {tablet} active Vitamin D-[address] 25 MCG (1000 UT) eCW1 ([facility]) Cholecalciferol 1000 UNT Oral Tablet Vitamin D-[address] 25 MCG (1000 UT) Vitamin D-[address] 25 MCG (1000 UT) 08/03/2020 12:00:00 AM EDT 1.0 {tablet} active Vitamin D-[address] 25 MCG (1000 UT) eCW1 ([facility]) Cholecalciferol 1000 UNT Oral Tablet Vitamin D-[address] 25 MCG (1000 UT) Vitamin D-[address] 25 MCG (1000 UT) 08/03/2020 12:00:00 AM EDT 1.0 {tablet} active Vitamin D-[address] 25 MCG (1000 UT) eCW1 ([facility]) Cholecalciferol 1000 UNT Oral Tablet Vitamin D-[address] 25 MCG (1000 UT) Vitamin D-[address] 25 MCG (1000 UT) 08/03/2020 12:00:00 AM EDT 1.0 {tablet} active Vitamin D-[address] 25 MCG (1000 UT) eCW1 ([facility]) Vitamin D-[address] 25 MCG (1000 UT) Vitamin D-[address] 25 MCG (1000 UT) 08/03/2020 12:00:00 AM EDT 1.0 {tablet} active Vitamin D-[address] 25 MCG (1000 UT) eCW1 ([facility]) Vitamin D-[address] 25 MCG (1000 UT) Vitamin D-[address] 25 MCG (1000 UT) 08/03/2020 12:00:00 AM EDT 1.0 {tablet} active Vitamin D-[address] 25 MCG (1000 UT) eCW1 ([facility]) Cholecalciferol 1000 UNT Oral Tablet Vitamin D-[address] 25 MCG (1000 UT) Vitamin D-[address] 25 MCG (1000 UT) 08/03/2020 12:00:00 AM EDT 1.0 {tablet} active Vitamin D-[address] 25 MCG (1000 UT) eCW1 ([facility]) Cholecalciferol 1000 UNT Oral Tablet Vitamin D-[address] 25 MCG (1000 UT) Vitamin D-[address] 25 MCG (1000 UT) 08/03/2020 12:00:00 AM EDT 1.0 {tablet} active Vitamin D-[address] 25 MCG (1000 UT) eCW1 ([facility]) Cholecalciferol 1000 UNT Oral Tablet Vitamin D-[address] 25 MCG (1000 UT) Vitamin D-[address] 25 MCG (1000 UT) 08/03/2020 12:00:00 AM EDT 1.0 {tablet} active Vitamin D-[address] 25 MCG (1000 UT) eCW1 ([facility]) Cholecalciferol 1000 UNT Oral Tablet Vitamin D-[address] 25 MCG (1000 UT) Vitamin D-[address] 25 MCG (1000 UT) 08/03/2020 12:00:00 AM EDT 1.0 {tablet} active Vitamin D-[address] 25 MCG (1000 UT) eCW1 ([facility]) Cholecalciferol 1000 UNT Oral Tablet Vitamin D-[address] 25 MCG (1000 UT) Vitamin D-[address] 25 MCG (1000 UT) 08/03/2020 12:00:00 AM EDT 1.0 {tablet} active Vitamin D-[address] 25 MCG (1000 UT) eCW1 ([facility]) Wheelchair - Wheelchair - 03/28/2020 12:00:00 AM EDT active Wheelchair - eCW1 ([facility]) Wheelchair - Wheelchair - 03/28/2020 12:00:00 AM EDT active Wheelchair - eCW1 ([facility]) Wheelchair - Wheelchair - 03/28/2020 12:00:00 AM EDT active Wheelchair - eCW1 ([facility]) Wheelchair _ UNK 03/28/2020 12:00:00 AM EDT activ e Wheelchair _ eCW1 ([facility]) Wheelchair _ UNK 03/28/2020 12:00:00 AM EDT activ e Wheelchair _ eCW1 ([facility]) Wheelchair _ UNK 03/28/2020 12:00:00 AM EDT activ e Wheelchair _ eCW1 ([facility]) Wheelchair _ UNK 03/28/2020 12:00:00 AM EDT activ e Wheelchair _ eCW1 ([facility]) Wheelchair _ UNK 03/28/2020 12:00:00 AM EDT activ e Wheelchair _ eCW1 ([facility]) Wheelchair _ UNK 03/28/2020 12:00:00 AM EDT activ e Wheelchair _ eCW1 ([facility]) Wheelchair - Wheelchair - 03/28/2020 12:00:00 AM EDT active Wheelchair - eCW1 ([facility]) Wheelchair - Wheelchair - 03/28/2020 12:00:00 AM EDT active Wheelchair - eCW1 ([facility]) Wheelchair _ UNK 03/28/2020 12:00:00 AM EDT activ e Wheelchair _ eCW1 ([facility]) Wheelchair _ UNK 03/28/2020 12:00:00 AM EDT activ e Wheelchair _ eCW1 ([facility]) Wheelchair - Wheelchair - 03/28/2020 12:00:00 AM EDT active Wheelchair - eCW1 ([facility]) Wheelchair _ UNK 03/28/2020 12:00:00 AM EDT activ e Wheelchair _ eCW1 ([facility]) Wheelchair - Wheelchair - 03/28/2020 12:00:00 AM EDT active Wheelchair - eCW1 ([facility]) Wheelchair - Wheelchair - 03/28/2020 12:00:00 AM EDT active Wheelchair - eCW1 ([facility]) Wheelchair _ UNK 03/28/2020 12:00:00 AM EDT activ e Wheelchair _ eCW1 ([facility]) Wheelchair - Wheelchair - 03/28/2020 12:00:00 AM EDT active Wheelchair - eCW1 ([facility]) Wheelchair - Wheelchair - 03/28/2020 12:00:00 AM EDT active Wheelchair - eCW1 ([facility]) Wheelchair _ UNK 03/28/2020 12:00:00 AM EDT activ e Wheelchair _ eCW1 ([facility]) Wheelchair - Wheelchair - 03/28/2020 12:00:00 AM EDT active Wheelchair - eCW1 ([facility]) Wheelchair _ UNK 03/28/2020 12:00:00 AM EDT activ e Wheelchair _ eCW1 ([facility]) Wheelchair - Wheelchair - 03/28/2020 12:00:00 AM EDT active Wheelchair - eCW1 ([facility]) Wheelchair - Wheelchair - 03/28/2020 12:00:00 AM EDT active Wheelchair - eCW1 ([facility]) Wheelchair _ UNK 03/28/2020 12:00:00 AM EDT activ e Wheelchair _ eCW1 ([facility]) Wheelchair - Wheelchair - 03/28/2020 12:00:00 AM EDT active Wheelchair - eCW1 ([facility]) Wheelchair _ UNK 03/28/2020 12:00:00 AM EDT activ e Wheelchair _ eCW1 ([facility]) Wheelchair _ UNK 03/28/2020 12:00:00 AM EDT activ e Wheelchair _ eCW1 ([facility]) Wheelchair - Wheelchair - 03/28/2020 12:00:00 AM EDT active Wheelchair - eCW1 ([facility]) Wheelchair - Wheelchair - 03/28/2020 12:00:00 AM EDT active Wheelchair - eCW1 ([facility]) Wheelchair _ UNK 03/28/2020 12:00:00 AM EDT activ e Wheelchair _ eCW1 ([facility]) Wheelchair _ UNK 03/28/2020 12:00:00 AM EDT activ e Wheelchair _ eCW1 ([facility]) Wheelchair - Wheelchair - 03/28/2020 12:00:00 AM EDT active Wheelchair - eCW1 ([facility]) Lidocaine Hydrochloride 20 MG/ML Mucous Membrane Topical Solution Lidocaine Viscous HCl 2 % Lidocaine Viscous HCl 2 % 03/14/2020 12:00:00 AM EDT 15.0 {ml_as_needed} active Lidocaine Viscous HCl 2 % eCW1 ([facility]) Lidocaine Hydrochloride 20 MG/ML Mucous Membrane Topical Solution Lidocaine Viscous HCl 2 % Lidocaine Viscous HCl 2 % 03/14/2020 12:00:00 AM EDT 15.0 {ml_as_needed} active Lidocaine Viscous HCl 2 % eCW1 ([facility]) Lidocaine Hydrochloride 20 MG/ML Mucous Membrane Topical Solution Lidocaine Viscous HCl 2 % Lidocaine Viscous HCl 2 % 03/14/2020 12:00:00 AM EDT 15.0 {ml_as_needed} active Lidocaine Viscous HCl 2 % eCW1 ([facility]) Lidocaine Hydrochloride 20 MG/ML Mucous Membrane Topical Solution Lidocaine Viscous HCl 2 % Lidocaine Viscous HCl 2 % 03/14/2020 12:00:00 AM EDT 15.0 {ml_as_needed} active Lidocaine Viscous HCl 2 % eCW1 ([facility]) Sodium Chloride 0.111 MEQ/ML Nasal Solution Saline Mist Spra y 12/02/2019 12:00:00 AM EST active M EDENT ([facility], ) Amoxicillin 875 MG / Clavulanate 125 MG Oral Tablet Am oxicillin/Clavulanate Potassium 11/13/2019 12:00:00 AM EST ORAL active MEDENT ([facility], ) Amoxicillin 500 MG / Clavulanate 125 MG Oral Tablet [Augmentin] Augmentin 500- 125 MG Augmentin 500-125 MG 11/12/2019 12:00:00 AM EST 1.0 {tablet} suspended Augmentin 500-125 MG eCW1 ([facility]) Amoxicillin 500 MG / Clavulanate 125 MG Oral Tablet [Augmentin] Augmentin 500- 125 MG Augmentin 500-125 MG 11/12/2019 12:00:00 AM EST 1.0 {tablet} suspended Augmentin 500-125 MG eCW1 ([facility]) Amoxicillin 500 MG / Clavulanate 125 MG Oral Tablet [Augmentin] Augmentin 500- 125 MG Augmentin 500-125 MG 11/12/2019 12:00:00 AM EST active 1 tablet eCW1 ([facility]) Amoxicillin 500 MG / Clavulanate 125 MG Oral Tablet [Augmentin] Augmentin 500- 125 MG Augmentin 500-125 MG 11/12/2019 12:00:00 AM EST 1.0 {tablet} suspended Augmentin 500-125 MG eCW1 ([facility]) Amoxicillin 500 MG / Clavulanate 125 MG Oral Tablet [Augmentin] Augmentin 500- 125 MG Augmentin 500-125 MG 11/12/2019 12:00:00 AM EST 1.0 {tablet} suspended Augmentin 500-125 MG eCW1 ([facility]) Amoxicillin 500 MG / Clavulanate 125 MG Oral Tablet [Augmentin] Augmentin 500- 125 MG Augmentin 500-125 MG 11/12/2019 12:00:00 AM EST 1.0 {tablet} suspended Augmentin 500-125 MG eCW1 ([facility]) Amoxicillin 500 MG / Clavulanate 125 MG Oral Tablet [Augmentin] Augmentin 500- 125 MG Augmentin 500-125 MG 11/12/2019 12:00:00 AM EST 1.0 {tablet} suspended Augmentin 500-125 MG eCW1 ([facility]) Amoxicillin 500 MG / Clavulanate 125 MG Oral Tablet [Augmentin] Augmentin 500- 125 MG Augmentin 500-125 MG 11/12/2019 12:00:00 AM EST 1.0 {tablet} suspended Augmentin 500-125 MG eCW1 ([facility]) Amoxicillin 500 MG / Clavulanate 125 MG Oral Tablet [Augmentin] Augmentin 500- 125 MG Augmentin 500-125 MG 11/12/2019 12:00:00 AM EST 1.0 {tablet} suspended Augmentin 500-125 MG eCW1 ([facility]) Misc. Devices - UNK 10/14/2019 12:00:00 AM EST ac tive as directed eCW1 ([facility]) Insurance Providers Payer name Policy type / Coverage type Policy ID Covered libertarian ID Covered libertarian's relationship to downey Policy Downey Plan Information [facility] MCRHMO [id number] SP [id number] [place] [id number] SP [id number] [facility](MCAID) O [id number] S [id number] MEDICAID [id number] [facility] MCRHMO [id number] SP [id number] MEDICARE COMPLETE [id number] SP [id number] [facility] MCRHMO [id number] SP [id number] MEDICARE [id number] SP [id number] MEDICARE COMPLETE-UHC O [id number] S [id number] MEDICARE [id number] SP [id number] MEDICARE COMPLETE [id number] SP [id number] [facility] MCRHMO [id number] SP [id number] MEDICARE COMPLETE [id number] SP [id number] MEDICARE COMPLETE [id number] SP [id number] MEDICAID [id number] SP [id number] [facility] MCRHMO [id number] SP [id number] MEDICARE COMPLETE [id number] SP [id number] MEDICARE COMPLETE-UHC O [id number] S [id number] MEDICARE COMPLETE [id number] SP [id number] MEDICAID [id number] SP [id number] ANSI-Commercial [id number] ANS-Medicare Part B [id number] ANS-Medicaid [id number] ANS-Medicare Part B [id number] ANS-Medicaid [id number] ANSI-Commercial [id number] [facility] [id number] ANSI-Commercial [id number] [place] [facility]-Medicare Part [place] [id number] [place] [facility]-Medicare [place] [id number] [place] [facility]-Medicaid [id number] ANSI-Commercial [id number] [facility] [id number] ANSI-Medicare Part B [id number] ANSI-Commercial [id number] [employer] [id number] SP [id number] ANSI-Medicaid [id number] ANSI-Commercial [id number] ANSI-Medicare Part B [id number] Medicaid [place] [facility] Part B [id number] Self [id number] [facility] Medicare Commercial [id number] Self [id number] ANSI-Medicaid [id number] ANSI-Medicare Part B [id number] ANSI-Commercial [id number] ANSI-Medicare Part B [id number] ANSI-Medicaid [id number] ANSI-Commercial [id number] ANSI-Medicaid [id number] ANSI-Commercial [id number] ANSI-Medicare Part B [id number] Medicaid [place] Medigap Part B [id number] Self [id number] ANSI-Medicare Part B [id number] ANSI-Commercial [id number]-[id number] ANSI-Medicaid [id number] ANSI-Medicare Part B [id number] ANSI-Commercial [id number] ANSI-Medicaid [id number] ANSI-Medicare Part B [id number] ANSI-Medicaid [id number] ANSI-Commercial [id number] ANSI-Medicaid [id number] ANSI-Medicare Part B [id number] ANSI-Commercial [id number]-3rp3-[id number]-6d1u-8is1-[id number] ANSI-Commercial [id number]-701t-484i-[id number] [id number]-178r-387d-[id number] ANSI-Medicaid [id number] ANSI-Medicare Part B [id number] ANSI-Medicare Part B [id number] ANSI-Medicaid [id number] ANSI-Commercial [id number] ANSI-Medicare Part B [id number] [facility] [id number] ANSI-Commercial [id number] ANSI-Medicare Part B [id number]-750c-xil0-[id number] [facility] [id number] ANSI-Commercial [id number]-u13g-[id number] 926dyj40-9160-8dz4-l79r-[id number] ANSI-Medicare Part B [id number] [facility] [id number] ANSI-Commercial [id number] n16i[id number] ANSI-Commercial 189940o9-0o0u-9g62-d776-6z6b3459v9fp 106084m6-2k2f-9w73-w859-2m1s1692c8vd ANSI-Medicare Part B [id number] ANSI-Medicaid [id number] ANSI-Commercial [id number]-61f8-4253-6h24-u636rb175ze2 eo83k1kc-73s3-0723-4y93-w646gj607ik6 ANSI-Medicare Part B [id number] ANSI-Medicaid [id number] ANSI-Medicare Part B [id number] ANSI-Medicaid [id number] ANSI-Commercial [id number]-05yb-811gx491c22l [id number]-83mk-[id number] ANSI-Commercial 8mp4101d-2232-3z41-r4p6-915845ovh772 9yt6185n-8272-0s93-g2s7-046301ekg016 ANSI-Medicaid [id number] ANSI-Medicare Part B [id number] ANSI-Medicaid [id number] ANSI-Medicare Part B [id number] ANSI-Commercial va70e7w8-844r-12xq-16nn-tc7n80185kl3 tx93e0g4-083c-95yh-54hr-hg6h15621pt9 ANSI-Medicare Part B [id number] ANSI-Medicaid [id number] ANSI-Commercial [id number]-s17f-[id number] 358705j5-b38y-1r87-0q58-1110e1893w78 ANSI-Commercial ruyq71q9-y54e-6769-g2mt-2257h756m575 tgnq89k4-c98x-0824-z8cv-9959a539q822 ANSI-Medicaid [id number] ANSI-Medicare Part B [id number] ANSI-Medicare Part B [id number] ANSI-Commercial 750o1u39-z48j-992c-o32w-00zc30nc87j9 448g2a44-q62p-804n-n86g-56gw72jm32l0 ANSI-Medicaid [id number] ANSI-Medicare Part B [id number] ANSI-Medicaid [id number] ANSI-Commercial 5355kl6t-c6z5-3n53-m367-579wn0h9nhx4 2783tt0b-i2o7-7w77-e689-781qg8m8cnp8 ANSI-Commercial 5bri272n-0sy6-07vs-n563-j35q332l0t7n 9xuk157c-8pd7-68rj-g838-o79n594d4f8t ANSI-Medicaid [id number] ANSI-Medicare Part B [id number] ANSI-Medicaid [id number] ANSI-Commercial n35zfj3i-248i-1890-9uwh-6h385t87xv82 j87axi5e-071r-8187-0mss-4b576j07ug41 ANSI-Medicare Part B [id number] ANSI-Commercial j2ls727e-9j1b-65pb-1sd2-01675tijsfm8 d1ml775v-5z3w-34tk-3sr2-68427neihau9 ANSI-Medicare Part B [id number] ANSI-Medicaid [id number] ANSI-Medicare Part B [id number] ANSI-Commercial [id number]-156r-5aod-12xi-8y0739089v6i 9r3zf15s-846v-3mtv-11mh-4m8576304z2c ANSI-Medicaid [id number] ANSI-Medicaid [id number] ANSI-Medicare Part B [id number] ANSI-Commercial [id number]-8y64-9vx3-6x07-k43x079s1a48 9935i10g-5v53-3vs9-1e74-m35f482d9b05 ANSI-Medicaid [id number] ANSI-Commercial 0wp23r7c-02uz-5g75-9q70-869l0dn4043m 5bb36k9m-58bk-[id number] ANSI-Medicare Part B [id number] ANSI-Medicare Part B [id number] ANSI-Commercial 16232ou1-8145-9271-9s15-jw6ktz54b9j1 36561xi5-9943-7901-8u16-ik4ujv74w6y9 ANSI-Medicaid [id number] ANSI-Medicare Part B [id number] ANSI-Medicaid [id number] ANSI-Commercial 570h76po-5646-30qh-v78l-45z4340rn651 508s38hp-1280-65zx-o99x-81n2574cq975 ANSI-Medicare Part B [id number] ANSI-Medicaid [id number] ANSI-Commercial [id number]-2wda-[id number] ka816k17-5z69-17ng-7wzx-[id number] [facility] [id number] ANS-Medicare Part B [id number] ANSI-Commercial f5mhr1e7-3p9l-7b8s-9g93-7515299y0hmt p7ewv1l6-8w4o-9v8m-6x00-5143610h8ouu ANSI-Commercial ss6pw140-8kzc-8i7c-4i6h-9n366s90m188 bd0zj643-4ppj-9f5p-4p0w-0d418i17f743 ANSI-Medicaid [id number] ANSI-Medicare Part B [id number] ANSI-Commercial [id number]-ub9k-749g-[id number] 9zaon147-ks5w-556n-etm9-3312o1799a51 [facility] [id number] ANSI-Medicare Part B [id number] ANSI-Medicare Part B [id number] ANSI-Commercial [id number]-j8p9-2wbz-[id number] 6un485e8-r9m4-7wzh-[id number] [facility]icaid [id number] [facility]-Medicare Part B [id number] [facility]icaid [id number] ANSI-Commercial [id number]-[id number]-920l-2p07-[id number] [id number]-wa3i-066n-9s09-[id number] ANSI-Medicare Part B [id number] [facility]-Medicaid [id number] ANSI-Commercial [id number]-[id number] kcrueb96-6g3t-[id number] ANSI-Medicaid [id number] ANSI-Commercial [id number]-8c90-36fv-2238-42q1i8jls8ax [id number]-5b22-06cl-3096-21h7n2ugw9fa ANSI-Medicare Part B [id number] ANSI-Commercial [id number]-095l-[id number] al6p8825-6294-5qcd-231l-[id number] ANSI-Medicaid [id number] ANSI-Medicare Part B [id number] MEDICARE [id number] SP [id number] A MEDICAID [id number] SP [id number] [employer] GOLD [id number] SP [id number] MEDICARE [id number] SP [id number] A [employer] PPO [id number] SP [id number] MEDICARE [id number] SP [id number] A MEDICARE [id number] SP [id number] Problems, Conditions, and Diagnoses Code Display Name Description Problem Type Effective Dates Data Source(s) M16.11 [id number] Primary osteoarthritis of right hip Pr oblem 08/08/2020 12:00:00 AM EST eCW1 ([facility]) N18.3 Chronic kidney disease stage 3 Stage 3 chronic kidney disease Problem 08/08/2020 12:00:00 AM EST eCW1 ([facility]) J30.2 [id number] 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, 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 Problem 03/14/2020 12:00:00 AM EDT eCW1 ([facility]) Surgeries/Procedures Procedure Description Date Indications Data Source(s) Office Visit, Est Pt., Level 2 FC 10/14/2019 12:00:00 AM EST eCW1 ([facility]) Office Visit, Est Pt., Level 3 PC 10/14/2019 12:00:00 AM EST eCW1 ([facility]) Results ID Date Data Source [id number] 04/20/2020 08:07:40 AM EDT eCW1 ([facility]) Name Value Range Interpretation Code Description Data Saba rce(s) Supporting Document(s) Microalbumin/Creatinine [Mass Ratio] in Urine 36.3 CREATININE, URINE eCW1 ([facility]) Albumin/Creatinine [Mass Ratio] in Urine 21.1 MALB URINE SIEMENS eCW1 ([facility]) Microalbumin/Creatinine [Ratio] in Urine 58.1 SANCHO/CREAT RATIO eCW1 ([facility]) ID Date Data Source LIPID PANEL (CARDIAC RISK) 04/18/2020 07:55:06 AM EDT eCW1 ( [facility]) Name Value Range Interpretation Code Description Data Saba rce(s) Supporting Document(s) Triglyceride [Mass/volume] in Serum or Plasma by calculation 146 TRIGLYCERIDES LEVEL eCW1 ([facility]) Cholesterol in LDL [Mass/volume] in Serum or Plasma by calculation 112 LDL CHOLESTEROL eCW1 ([facility]) Cholesterol [Moles/volume] in Serum or Plasma 177 CHOLESTEROL LEVEL eCW1 ([facility]) Cholesterol in HDL [Moles/volume] in Serum or Plasma 36 HDL CHOLESTEROL eCW1 ([facility]) 141 NON-HDL-C eCW1 ([facility]) 4.916 CHOLESTEROL RISK RATIO eCW1 ([facility]) ID Date Data Source [id number] 04/18/2020 07:54:51 AM EDT eCW1 ([facility]) Name Value Range Interpretation Code Description Data Saba rce(s) Supporting Document(s) Hemoglobin A1c/Hemoglobin.total in Blood 10.9 HEMOGLOBIN A1c eCW1 ([facility]) ID Date Data Source CBC - Complete Blood Count 04/18/2020 07:54:16 AM EDT eCW1 ( [facility]) Name Value Range Interpretation Code Description Data Saba rce(s) Supporting Document(s) 7.0 WHITE BLOOD COUNT eCW1 ([facility]) 6.24 RED BLOOD COUNT eCW1 ([facility]) 24.7 MEAN CORPUSCULAR HEMOGLOBIN eC W1 ([facility]) 15.4 HEMOGLOBIN eCW1 ([facility]) 78.7 MEAN CORPUSCULAR VOLUME eCW1 ( [facility]) 49.1 HEMATOCRIT eCW1 ([facility]) 31.4 MEAN CORPUSCULAR HGB CONC eCW1 ([facility]) 203 PLATELET COUNT, AUTOMATED eCW1 ([facility]) 19.2 RED CELL DISTRIBUTION WIDTH eC W1 ([facility]) ID Date Data Source Comprehensive Metabolic Profile (CMP) 04/18/2020 07:54:02 AM EDT eCW1 ([facility]) Name Value Range Interpretation Code Description Data Saba rce(s) Supporting Document(s) 23 BLOOD UREA NITROGEN eCW1 ([facility]) 275 GLUCOSE, FASTING eCW1 ([facility]) 133 SODIUM LEVEL eCW1 ([facility]) > 60.0 GLOMERULAR FILTRATION RATE eCW 1 ([facility]) 1.40 CREATININE FOR GFR eCW1 ([facility]) 3.9 POTASSIUM SERUM eCW1 ([facility]) 97 CHLORIDE LEVEL eCW1 ([facility]) 30 CARBON DIOXIDE LEVEL eCW1 ([facility]) 7 AST/SGOT eCW1 ([facility]) 9.0 CALCIUM LEVEL eCW1 ([facility]) 87 ALKALINE PHOSPHATASE eCW1 ([facility]) 7.6 TOTAL PROTEIN eCW1 ([facility]) 16 ALT/SGPT eCW1 ([facility]) 0.6 BILIRUBIN,TOTAL eCW1 ([facility]) 3.6 ALBUMIN eCW1 ([facility]) 0.9 ALBUMIN/GLOBULIN RATIO eCW1 ([facility]) ID Date Data Source URIC ACID 04/18/2020 07:53:43 AM EDT eCW1 ([facility]) Name Value Range Interpretation Code Description Data Saba rce(s) Supporting Document(s) 4.2 URIC ACID eCW1 ([facility]) Procedure Social History Code Duration Value Status Description Data Source(s ) Smoking 11/09/2020 12:00:00 AM EST Never Smoker completed Never S moker eCW1 ([facility]) Smoking 11/09/2020 12:00:00 AM EST Never Smoker completed Never S moker eCW1 ([facility]) Smoking 11/09/2020 12:00:00 AM EST Never Smoker completed Never S moker eCW1 ([facility]) Smoking 09/06/2020 12:00:00 AM EST Never Smoker completed Never S moker eCW1 ([facility]) Smoking 09/06/2020 12:00:00 AM EST Never Smoker completed Never S moker eCW1 ([facility]) Smoking 08/08/2020 12:00:00 AM EST Never Smoker completed Never S moker eCW1 ([facility]) Smoking 08/08/2020 12:00:00 AM EST Never Smoker completed Never S moker eCW1 ([facility]) Smoking 08/08/2020 12:00:00 AM EST Never Smoker completed Never S moker eCW1 ([facility]) Smoking 08/08/2020 12:00:00 AM EST Never Smoker completed Never S moker eCW1 ([facility]) Smoking 08/08/2020 12:00:00 AM EST Never Smoker completed Never S moker eCW1 ([facility]) Smoking 08/01/2020 12:00:00 AM EDT Never Smoker completed Never S moker eCW1 ([facility]) Smoking 08/01/2020 12:00:00 AM EDT Never Smoker completed Never S moker eCW1 ([facility]) Smoking 08/01/2020 12:00:00 AM EDT Never Smoker completed Never S moker eCW1 ([facility]) Smoking 04/19/2020 12:00:00 AM EDT Never Smoker completed Never S moker eCW1 ([facility]) Smoking 04/19/2020 12:00:00 AM EDT Never Smoker completed Never S moker eCW1 ([facility]) Smoking 04/19/2020 12:00:00 AM EDT Never Smoker completed Never S moker eCW1 ([facility]) Smoking 03/14/2020 12:00:00 AM EDT Never Smoker completed Never S moker eCW1 ([facility]) Smoking 03/14/2020 12:00:00 AM EDT Never Smoker completed Never S moker eCW1 ([facility]) Smoking 03/14/2020 12:00:00 AM EDT Never Smoker completed Never S moker eCW1 ([facility]) Smoking 03/14/2020 12:00:00 AM EDT Never Smoker completed Never S moker eCW1 ([facility]) Vital Signs ID Date Data Source UNK Name Value Range Interpretation Code Description Data Source(s) Diastolic blood pressure 60 mm[Hg] 60 mm[Hg] eCW1 ([facility]) Systolic blood pressure 108 mm[Hg] 108 mm[Hg] e CW1 ([facility]) Body temperature 97.0 [degF] 97.0 [degF] eCW1 ( [facility]) Respiratory rate 18 /min 18 /min eCW1 [facility] Heart rate 87 /min 87 /min eCW1 ([facility]) Body mass index (BMI) [Ratio] 38.00 kg/m2 38.00 kg/m2 W1 ([facility]) Body height 74 [in_i] 74 [in_i] eCW1 ([facility]) Body weight 296 [lb_av] 296 [lb_av] eCW1 ([facility]) Body surface area Derived from formula 2.52 m2 2.52 m2 [facility] ([facility]) Body weight 128.369 kg 128.369 kg [facility] ([facility]) [place] body weight 190 [lb_av] 190 [lb_av] [facility] T ([facility]) Body mass index (BMI) [Ratio] 36.3 kg/m2 36.3 k g/m2 [facility] ([facility]) Body weight 283.00 [lb_av] 283.00 [lb_av] [facility] T ([facility]) Body height 74 [in_i] 74 [in_i] [facility] ([facility]) 6'2" Diastolic blood pressure 64 mm[Hg] 64 mm[Hg] [facility] ([facility]) Systolic blood pressure 110 mm[Hg] 110 mm[Hg] [facility] Diastolic blood pressure 80 mm[Hg] 80 mm[Hg] eCW1 ([facility]) Systolic blood pressure 116 mm[Hg] 116 mm[Hg] e CW1 ([facility]) Body temperature 97.1 [degF] 97.1 [degF] eCW1 ( [facility]) Respiratory rate 18 /min 18 /min eCW1 ([facility] Heart rate 86 /min 86 /min eCW1 ([facility]) Body mass index (BMI) [Ratio] 39.93 kg/m2 39.93 kg/m2 W1 ([facility]) Body height 74 [in_i] 74 [in_i] eCW1 ([facility]) Body weight 311 [lb_av] 311 [lb_av] eCW1 ([facility]) Diastolic blood pressure 72 mm[Hg] 72 mm[Hg] eCW1 ([facility]) Systolic blood pressure 114 mm[Hg] 114 mm[Hg] e CW1 ([facility]) Body temperature 98.1 [degF] 98.1 [degF] eCW1 ( [facility]) Respiratory rate 20 /min 20 /min eCW1 ([facility]) Heart rate 110 /min 110 /min eCW1 ([facility]) Body mass index (BMI) [Ratio] 37.61 kg/m2 37.61 kg/m2 eCW1 ([facility]) Body height 74 [in_i] 74 [in_i] eCW1 ([facility]) Body weight 293 [lb_av] 293 [lb_av] eCW1 ([facility]) Diastolic blood pressure 72 mm[Hg] 72 mm[Hg] eCW1 ([facility]) Systolic blood pressure 118 mm[Hg] 118 mm[Hg] e CW1 ([facility]) Body temperature 98.9 [degF] 98.9 [degF] eCW1 ( [facility]) Respiratory rate 18 /min 18 /min eCW1 ([facility]) Heart rate 94 /min 94 /min eCW1 ([facility]) Body mass index (BMI) [Ratio] 37.08 kg/m2 37.08 kg/m2 eCW1 ([facility]) Body height 74 [in_i] 74 [in_i] eCW1 ([facility]) Body weight 288.8 [lb_av] 288.8 [lb_av] eCW1 ([facility]) Body surface area Derived from formula 2.45 m2 2.45 m2 [facility] Body weight 120.204 kg 120.204 kg [facility] ([facility], ) [place] body weight 190 [lb_av] 190 [lb_av] MED[facility] T ([facility]) Body mass index (BMI) [Ratio] 34.0 kg/m2 34.0 k g/m2 [facility] Body weight 265.00 [lb_av] 265.00 [lb_av] [facility] T ([facility]) Body height 74 [in_i] 74 [in_i] [facility] ([facility]) 6'2" Body weight 119.750 kg 119.750 kg [facility] ([facility]) Body mass index (BMI) [Ratio] 33.9 kg/m2 33.9 k g/m2 [facility] ([facility], ) Body weight 264.00 [lb_av] 264.00 [lb_av] MEDEN T ([facility], ) Body height 74 [in_i] 74 [in_i] [facility] ([facility], ) 6'2" Diastolic blood pressure 70 mm[Hg] 70 mm[Hg] eCW1 ([facility]) Systolic blood pressure 120 mm[Hg] 120 mm[Hg] e CW1 ([facility]) Body temperature 97 [degF] 97 [degF] eCW1 ([facility] Respiratory rate 20 /min 20 /min eCW1 ([facility]) Heart rate 88 /min 88 /min eCW1 ([facility]) Body mass index (BMI) [Ratio] 35.69 kg/m2 35.69 kg/m2 eCW1 ([facility]) Body height 74 [in_us] 74 [in_us] eCW1 ([facility]) Body weight Measured 278 [lb_av] 278 [lb_av] eC W1 ([facility]) Patient Treatment Plan of Care Planned Activity Planned Date Details Description Data Source (s) Vitamin D-[address] 25 MCG (1000 UT) 08/05/2020 12:00:00 AM EDT eCW1 ([facility]) Vitamin D-[address] 25 MCG (1000 UT) 08/05/2020 12:00:00 AM EDT eCW1 ([facility]) Wheelchair - 03/28/2020 12:00:00 AM EDT e CW1 ([facility]) Wheelchair _ 03/28/2020 12:00:00 AM EDT e CW1 ([facility]) Lidocaine Hydrochloride 20 MG/ML Mucous Membrane Topic al Solution 03/14/2020 12:00:00 AM EDT eCW1 ([facility]) Lidocaine Hydrochloride 20 MG/ML Mucous Membrane Topic al Solution 03/14/2020 12:00:00 AM EDT eCW1 ([facility]) Lidocaine Hydrochloride 20 MG/ML Mucous Membrane Topic al Solution 03/14/2020 12:00:00 AM EDT eCW1 ([facility]) Lidocaine Hydrochloride 20 MG/ML Mucous Membrane Topic al Solution 03/14/2020 12:00:00 AM EDT eCW1 ([facility]) Amoxicillin 500 MG / Clavulanate 125 MG Oral Tablet [A ugmentin] 11/12/2019 12:00:00 AM EST eCW1 ([facility]) Misc. Devices - 10/14/2019 12:00:00 AM EST eCW1 ([facility])
[2020-12-03] MEDS ORDERED: NYSTATIN 100,000 UNITS/GM TOPICAL PWD 15 GM TOP STA (08:05)
[2020-12-03] MEDS ORDERED: FUROSEMIDE 20MG/2ML VIAL (J1940) IV ONE (08:05)
--- OUTSIDE RECORDS SUMMARY | 2020-12-03 08:18 | CCD ---
Author Author [facility] Organization [facility] Address Unknown Phone Unavailable Support Name Relationship Address Phone RE Next Of Kin Unknown Unavailable PAYTON VARGAS Next Of Kin [address] [place] [address] Payton Vargas ECON [address] [place] [address] [phone] Re-disclosure Warning The records that you are [...] is protected by Article 27-F of the [facility] Public Health law. If you continue you may have access to information: Regarding HIV / AIDS; Provided by facilities licensed or operated by the [facility] Office of Mental Health; or Provided by the [facility] Office for People With Developmental Disabilities. If such information is present, then the following [facility] mandated warning applies: This information has [...] law may result in a fine or detention sentence or both. A general authorization for the release of medical or other information is NOT sufficient authorization for further disc losure. Family History Family Member Name Family Member Gender Family Member Status Date o f Status Description Data Source(s) Unknown Unknown Problem MEDENT ([facility], ) Encounters Encounter Providers Location Date Indications Data Source(s ) Unknown [address] [facility] [id number] 11/15/2020 12:00:00 AM EST eCW1 ([facility]) Unknown [address] [facility] [address] 11/09/2020 12:00:00 AM EST eCW1 ([facility]) Outpatient [address] [facility] [address] 11/08/2020 12:00:00 AM EST eCW1 ([facility]) Unknown [address] [facility] [address] 09/07/2020 12:00:00 AM EST eCW1 ([facility]) Unknown [address] [facility] [address] 08/26/2020 12:00:00 AM EST eCW1 ([facility]) Unknown [address] [facility] [address] 08/19/2020 12:00:00 AM EST eCW1 ([facility]) Unknown [address] [facility] [address] 08/15/2020 12:00:00 AM EST eCW1 ([facility]) Unknown [address] [facility] [address] 08/12/2020 12:00:00 AM EST eCW1 ([facility]) (TCM) Transition of Care Visit [address] [place] [address] 08/08/2020 12:00:00 AM EST eCW1 ([facility]) Unknown [address] [facility] [address] 08/04/2020 12:00:00 AM EDT eCW1 ([facility]) Unknown [address] [facility] [address] 08/04/2020 12:00:00 AM EDT eCW1 ([facility]) [place] [address] [facility] [address] 07/29/2020 12:00:00 AM EDT eCW1 ([facility]) [place] [address] [facility] [address] 04/20/2020 12:00:00 AM EDT eCW1 ([facility]) [place] [address] [facility] [address] 04/19/2020 12:00:00 AM EDT eCW1 ([facility]) [place] [address] [facility] [address] 04/19/2020 12:00:00 AM EDT eCW1 ([facility]) [place] [address] [facility] [address] 03/24/2020 12:00:00 AM EDT eCW1 ([facility]) [place] [address] [facility] [address] 03/16/2020 12:00:00 AM EDT eCW1 ([facility]) [place] [address] [facility] [address] 03/14/2020 12:00:00 AM EDT eCW1 ([facility]) [place] [address] [facility] [address] 03/11/2020 12:00:00 AM EDT eCW1 ([facility]) [place] [address] [facility] [address] 03/08/2020 12:00:00 AM EDT eCW1 ([facility]) [facility] [address] [facility] [address] 03/01/2020 12:00:00 AM EDT eCW1 ([facility]) [facility] [address] [facility] [address] 02/23/2020 12:00:00 AM EDT eCW1 ([facility]) [address] [address] 02/23/2020 12:00:00 AM EDT eCW1 ([facility]) [address] [place] [address] 02/22/2020 12:00:00 AM EDT eCW1 ([facility]) [facility] [place] [facility] [place] [address] [place] [address] 01/25/2020 12:00:00 AM EDT eCW1 ([facility]) [address] [address] 01/20/2020 12:00:00 AM EDT eCW1 ([facility]) [address] [address] 01/13/2020 12:00:00 AM EDT eCW1 ([facility]) [address] [address] 01/08/2020 12:00:00 AM EDT eCW1 ([facility]) [address] [address] 12/16/2019 12:00:00 AM EDT [facility]CW1 [facility] [address] [place] [address] 11/20/2019 12:00:00 AM EST eCW1 ([facility]) [address] [place] [address] 11/10/2019 12:00:00 AM EST eCW1 ([facility]) [address] [place] [address] 11/10/2019 12:00:00 AM EST eCW1 ([facility]) [address] [place] [address] 10/23/2019 12:00:00 AM EST eCW1 ([facility]) [facility] Res[facility] [address] [place] [address] 10/14/2019 12:00:00 AM EST eCW1 ([facility]) [facility] [place] [address] [facility] [address] 10/12/2019 12:00:00 AM EST eCW1 ([facility]) Medications Medication Brand Name Start Date Product Form Dose Route Admi nistrative Instructions Pharmacy Instructions Status Indications Reaction Description Data Source(s) Cholecalciferol 1000 UNT Oral Tablet Vitamin D-[address] 25 MCG (1000 UT) Vitamin D-[address] 25 MCG (1000 UT) 08/05/2020 12:00:00 AM EDT 1.0 {tablet} suspended Vitamin D-[address] 25 MCG (1000 UT) [facility] Cholecalciferol 1000 UNT Oral Tablet Vitamin D-[address] 25 MCG (1000 UT) Vitamin D-[address] 25 MCG (1000 UT) 08/05/2020 12:00:00 AM EDT 1.0 {tablet} suspended Vitamin D-[address] 25 MCG (1000 UT) [facility]CW[facility] Vitamin D-[address] 25 MCG (1000 UT) Vitamin D-[address] 25 MCG (1000 UT) 08/05/2020 12:00:00 AM EDT 1.0 {tablet} suspende d Vitamin D-[address] 25 MCG (1000 UT) eCW1 [facility]) Cholecalciferol 1000 UNT Oral Tablet Vitamin D-[address] 25 MCG (1000 UT) Vitamin D-[address] 25 MCG (1000 UT) 08/05/2020 12:00:00 AM EDT 1.0 {tablet} suspended Vitamin D-[address] 25 MCG (1000 UT) eCW1 [facility]) Cholecalciferol 1000 UNT Oral Tablet Vitamin D-[address] 25 MCG (1000 UT) Vitamin D-[address] 25 MCG (1000 UT) 08/05/2020 12:00:00 AM EDT 1.0 {tablet} suspended Vitamin D-[address] 25 MCG (1000 UT) eCW1 [facility]) Cholecalciferol 1000 UNT Oral Tablet Vitamin D-[address] 25 MCG (1000 UT) Vitamin D-[address] 25 MCG (1000 UT) 08/05/2020 12:00:00 AM EDT 1.0 {tablet} suspended Vitamin D-[address] 25 MCG (1000 UT) eCW1 [facility]) Cholecalciferol 1000 UNT Oral Tablet Vitamin D-[address] 25 MCG (1000 UT) Vitamin D-[address] 25 MCG (1000 UT) 08/05/2020 12:00:00 AM EDT 1.0 {tablet} suspended Vitamin D-[address] 25 MCG (1000 UT) eC ([facility]) Vitamin D-[address] 25 MCG (1000 UT) Vitamin D-[address] 25 MCG (1000 UT) 08/05/2020 12:00:00 AM EDT 1.0 {tablet} active Vitamin D-[address] 25 MCG (1000 UT) eC ([facility]) Vitamin D-[address] 25 MCG (1000 UT) Vitamin D-[address] 25 MCG (1000 UT) 08/05/2020 12:00:00 AM EDT 1.0 {tablet} active Vitamin D-[address] 25 MCG (1000 UT) [facility] ([facility]) Cholecalciferol 1000 UNT Oral Tablet Vitamin D-[address] 25 MCG (1000 UT) Vitamin D-[address] 25 MCG (1000 UT) 08/05/2020 12:00:00 AM EDT 1.0 {tablet} suspended Vitamin D-[address] 25 MCG (1000 UT) eC ([facility]) Cholecalciferol 1000 UNT Oral Tablet Vitamin D-[address] 25 MCG (1000 UT) Vitamin D-[address] 25 MCG (1000 UT) 08/05/2020 12:00:00 AM EDT 1.0 {tablet} suspended Vitamin D-[address] 25 MCG (1000 UT) [facility]) Cholecalciferol 1000 UNT Oral Tablet Vitamin D-[address] 25 MCG (1000 UT) Vitamin D-[address] 25 MCG (1000 UT) 08/05/2020 12:00:00 AM EDT 1.0 {tablet} suspended Vitamin D-[address] 25 MCG (1000 UT) eCW1 [facility]) Cholecalciferol 1000 UNT Oral Tablet Vitamin D-[address] 25 MCG (1000 UT) Vitamin D-[address] 25 MCG (1000 UT) 08/03/2020 12:00:00 AM EDT 1.0 {tablet} active Vitamin D-[address] 25 MCG (1000 UT) eCW1 ([facility]) Vitamin D-[address] 25 MCG (1000 UT) Vitamin D-[address] 25 MCG (1000 UT) 08/03/2020 12:00:00 AM EDT 1.0 {tablet} active Vitamin D-[address] 25 MCG (1000 UT) eCW1 ([facility]) Cholecalciferol 1000 UNT Oral Tablet Vitamin D-[address] 25 MCG (1000 UT) Vitamin D-[address] 25 MCG (1000 UT) 08/03/2020 12:00:00 AM EDT 1.0 {tablet} active Vitamin D-[address] 25 MCG (1000 UT) eCW1 ([facility]) Cholecalciferol 1000 UNT Oral Tablet Vitamin D-[address] 25 MCG (1000 UT) Vitamin D-[address] 25 MCG (1000 UT) 08/03/2020 12:00:00 AM EDT 1.0 {tablet} active Vitamin D-[address] 25 MCG (1000 UT) eCW1 [facility]) Cholecalciferol 1000 UNT Oral Tablet Vitamin D-[address] 25 MCG (1000 UT) Vitamin D-[address] 25 MCG (1000 UT) 08/03/2020 12:00:00 AM EDT 1.0 {tablet} active Vitamin D-[address] 25 MCG (1000 UT) eCW1 [facility]) Vitamin D-[address] 25 MCG (1000 UT) Vitamin D-[address] 25 MCG (1000 UT) 08/03/2020 12:00:00 AM EDT 1.0 {tablet} active Vitamin D-[address] 25 MCG (1000 UT) eCW1 ([facility]) Vitamin D-[address] 25 MCG (1000 UT) Vitamin D-[address] 25 MCG (1000 UT) 08/03/2020 12:00:00 AM EDT 1.0 {tablet} active Vitamin D-[address] 25 MCG (1000 UT) eCW1 ([facility]) Cholecalciferol 1000 UNT Oral Tablet Vitamin D-[address] 25 MCG (1000 UT) Vitamin D-[address] 25 MCG (1000 UT) 08/03/2020 12:00:00 AM EDT 1.0 {tablet} active Vitamin D-[address] 25 MCG (1000 UT) eCW1 ([facility]) Cholecalciferol 1000 UNT Oral Tablet Vitamin D-[address] 25 MCG (1000 UT) Vitamin D-[address] 25 MCG (1000 UT) 08/03/2020 12:00:00 AM EDT 1.0 {tablet} active Vitamin D-[address] 25 MCG (1000 UT) eCW1 ([facility]) Cholecalciferol 1000 UNT Oral Tablet Vitamin D-[address] 25 MCG (1000 UT) Vitamin D-[address] 25 MCG (1000 UT) 08/03/2020 12:00:00 AM EDT 1.0 {tablet} active Vitamin D-[address] 25 MCG (1000 UT) eCW1 ([facility]) Cholecalciferol 1000 UNT Oral Tablet Vitamin D-[address] 25 MCG (1000 UT) Vitamin D-[address] 25 MCG (1000 UT) 08/03/2020 12:00:00 AM EDT 1.0 {tablet} active Vitamin D-[address] 25 MCG (1000 UT) eCW1 ([facility]) Cholecalciferol 1000 UNT Oral Tablet Vitamin D-[address] 25 MCG (1000 UT) Vitamin D-[address] 25 MCG (1000 UT) 08/03/2020 12:00:00 AM EDT 1.0 {tablet} active Vitamin D-[address] 25 MCG (1000 UT) eCW1 ([facility]) Wheelchair - Wheelchair - 03/28/2020 12:00:00 AM EDT active Wheelchair - eCW1 ([facility]) Wheelchair - Wheelchair - 03/28/2020 12:00:00 AM EDT active Wheelchair - eCW1 ([facility]) Wheelchair - Wheelchair - 03/28/2020 12:00:00 AM EDT active Wheelchair - eCW1 ([facility]) Wheelchair _ UNK 03/28/2020 12:00:00 AM EDT activ e Wheelchair _ eCW1 ([facility]) Wheelchair _ UNK 03/28/2020 12:00:00 AM EDT activ e Wheelchair _ eCW1 ([facility]) Wheelchair _ UNK 03/28/2020 12:00:00 AM EDT activ e Wheelchair _ eCW1 ([facility]) Wheelchair _ UNK 03/28/2020 12:00:00 AM EDT activ e Wheelchair _ eCW1 ([facility]) Wheelchair _ UNK 03/28/2020 12:00:00 AM EDT activ e Wheelchair _ eCW1 ([facility]) Wheelchair _ UNK 03/28/2020 12:00:00 AM EDT activ e Wheelchair _ eCW1 ([facility]) Wheelchair - Wheelchair - 03/28/2020 12:00:00 AM EDT active Wheelchair - eCW1 ([facility]) Wheelchair - Wheelchair - 03/28/2020 12:00:00 AM EDT active Wheelchair - eCW1 ([facility]) Wheelchair _ UNK 03/28/2020 12:00:00 AM EDT activ e Wheelchair _ eCW1 ([facility]) Wheelchair _ UNK 03/28/2020 12:00:00 AM EDT activ e Wheelchair _ eCW1 ([facility]) Wheelchair - Wheelchair - 03/28/2020 12:00:00 AM EDT active Wheelchair - eCW1 ([facility]) Wheelchair _ UNK 03/28/2020 12:00:00 AM EDT activ e Wheelchair _ eCW1 ([facility]) Wheelchair - Wheelchair - 03/28/2020 12:00:00 AM EDT active Wheelchair - eCW1 ([facility]) Wheelchair - Wheelchair - 03/28/2020 12:00:00 AM EDT active Wheelchair - eCW1 ([facility]) Wheelchair _ UNK 03/28/2020 12:00:00 AM EDT activ e Wheelchair _ eCW1 ([facility]) Wheelchair - Wheelchair - 03/28/2020 12:00:00 AM EDT active Wheelchair - eCW1 ([facility]) Wheelchair - Wheelchair - 03/28/2020 12:00:00 AM EDT active Wheelchair - eCW1 ([facility]) Wheelchair _ UNK 03/28/2020 12:00:00 AM EDT activ e Wheelchair _ eCW1 ([facility]) Wheelchair - Wheelchair - 03/28/2020 12:00:00 AM EDT active Wheelchair - eCW1 ([facility]) Wheelchair _ UNK 03/28/2020 12:00:00 AM EDT activ e Wheelchair _ eCW1 ([facility]) Wheelchair - Wheelchair - 03/28/2020 12:00:00 AM EDT active Wheelchair - eCW1 ([facility]) Wheelchair - Wheelchair - 03/28/2020 12:00:00 AM EDT active Wheelchair - eCW1 ([facility]) Wheelchair _ UNK 03/28/2020 12:00:00 AM EDT activ e Wheelchair _ eCW1 ([facility]) Wheelchair - Wheelchair - 03/28/2020 12:00:00 AM EDT active Wheelchair - eCW1 ([facility]) Wheelchair _ UNK 03/28/2020 12:00:00 AM EDT activ e Wheelchair _ eCW1 ([facility]) Wheelchair _ UNK 03/28/2020 12:00:00 AM EDT activ e Wheelchair _ eCW1 ([facility]) Wheelchair - Wheelchair - 03/28/2020 12:00:00 AM EDT active Wheelchair - eCW1 ([facility]) Wheelchair - Wheelchair - 03/28/2020 12:00:00 AM EDT active Wheelchair - eCW1 ([facility]) Wheelchair _ UNK 03/28/2020 12:00:00 AM EDT activ e Wheelchair _ eCW1 ([facility]) Wheelchair _ UNK 03/28/2020 12:00:00 AM EDT activ e Wheelchair _ eCW1 ([facility]) Wheelchair - Wheelchair - 03/28/2020 12:00:00 AM EDT active Wheelchair - eCW1 ([facility]) Lidocaine Hydrochloride 20 MG/ML Mucous Membrane Topical Solution Lidocaine Viscous HCl 2 % Lidocaine Viscous HCl 2 % 03/14/2020 12:00:00 AM EDT 15.0 {ml_as_needed} active Lidocaine Viscous HCl 2 % eCW1 ([facility]) Lidocaine Hydrochloride 20 MG/ML Mucous Membrane Topical Solution Lidocaine Viscous HCl 2 % Lidocaine Viscous HCl 2 % 03/14/2020 12:00:00 AM EDT 15.0 {ml_as_needed} active Lidocaine Viscous HCl 2 % eCW1 ([facility]) Lidocaine Hydrochloride 20 MG/ML Mucous Membrane Topical Solution Lidocaine Viscous HCl 2 % Lidocaine Viscous HCl 2 % 03/14/2020 12:00:00 AM EDT 15.0 {ml_as_needed} active Lidocaine Viscous HCl 2 % eCW1 ([facility]) Lidocaine Hydrochloride 20 MG/ML Mucous Membrane Topical Solution Lidocaine Viscous HCl 2 % Lidocaine Viscous HCl 2 % 03/14/2020 12:00:00 AM EDT 15.0 {ml_as_needed} active Lidocaine Viscous HCl 2 % eCW1 [facility]) Sodium Chloride 0.111 MEQ/ML Nasal Solution Saline Mist Spra y 12/02/2019 12:00:00 AM EST active M EDENT ([facility], ) Amoxicillin 875 MG / Clavulanate 125 MG Oral Tablet Am oxicillin/Clavulanate Potassium 11/13/2019 12:00:00 AM EST ORAL active MEDENT ([facility], ) Amoxicillin 500 MG / Clavulanate 125 MG Oral Tablet [Augmentin] Augmentin 500- 125 MG Augmentin 500-125 MG 11/12/2019 12:00:00 AM EST 1.0 {tablet} suspended Augmentin 500-125 MG eCW1 ([facility]) Amoxicillin 500 MG / Clavulanate 125 MG Oral Tablet [Augmentin] Augmentin 500- 125 MG Augmentin 500-125 MG 11/12/2019 12:00:00 AM EST 1.0 {tablet} suspended Augmentin 500-125 MG eCW1 ([facility]) Amoxicillin 500 MG / Clavulanate 125 MG Oral Tablet [Augmentin] Augmentin 500- 125 MG Augmentin 500-125 MG 11/12/2019 12:00:00 AM EST active 1 tablet eCW1 [facility]) Amoxicillin 500 MG / Clavulanate 125 MG Oral Tablet [Augmentin] Augmentin 500- 125 MG Augmentin 500-125 MG 11/12/2019 12:00:00 AM EST 1.0 {tablet} suspended Augmentin 500-125 MG eCW1 ([facility]) Amoxicillin 500 MG / Clavulanate 125 MG Oral Tablet [Augmentin] Augmentin 500- 125 MG Augmentin 500-125 MG 11/12/2019 12:00:00 AM EST 1.0 {tablet} suspended Augmentin 500-125 MG eCW1 ([facility]) Amoxicillin 500 MG / Clavulanate 125 MG Oral Tablet [Augmentin] Augmentin 500- 125 MG Augmentin 500-125 MG 11/12/2019 12:00:00 AM EST 1.0 {tablet} suspended Augmentin 500-125 MG eCW1 ([facility]) Amoxicillin 500 MG / Clavulanate 125 MG Oral Tablet [Augmentin] Augmentin 500- 125 MG Augmentin 500-125 MG 11/12/2019 12:00:00 AM EST 1.0 {tablet} suspended Augmentin 500-125 MG eCW1 ([facility]) Amoxicillin 500 MG / Clavulanate 125 MG Oral Tablet [Augmentin] Augmentin 500- 125 MG Augmentin 500-125 MG 11/12/2019 12:00:00 AM EST 1.0 {tablet} suspended Augmentin 500-125 MG eCW1 ([facility]) Amoxicillin 500 MG / Clavulanate 125 MG Oral Tablet [Augmentin] Augmentin 500- 125 MG Augmentin 500-125 MG 11/12/2019 12:00:00 AM EST 1.0 {tablet} suspended Augmentin 500-125 MG eCW1 ([facility]) Misc. Devices - UNK 10/14/2019 12:00:00 AM EST ac tive as directed eCW1 [facility]) Insurance Providers Payer name Policy type / Coverage type Policy ID Covered democrat ID Covered democrat's relationship to downey Policy Odwney Plan Information [facility] MCRHMO [id number] SP [id number] SP [id number] [facility](MCAID) O [id number] S [id number] MEDICAID M [id number] [facility] MCRHMO [id number] SP [id number] MEDICARE COMPLETE [id number] SP [id number] [facility] MCRHMO [id number] SP [id number] MEDICARE [id number] SP [id number] MEDICARE COMPLETE-UHC O [id number] S [id number] MEDICARE [id number] SP [id number] MEDICARE COMPLETE [id number] SP [id number] [facility] MCRHMO [id number] SP [id number] MEDICARE COMPLETE [id number] SP [id number] MEDICARE COMPLETE [id number] SP [id number] MEDICAID [id number] [facility] MCRHMO [id number] SP [id number] MEDICARE COMPLETE [id number] SP [id number] MEDICARE COMPLETE-UHC O [id number] S [id number] MEDICARE COMPLETE [id number] SP [id number] MEDICAID [id number] SP [id number] ANSI-Commercial [id number] ANS-Medicare Part B [id number] ANS-Medicaid [id number] ANS-Medicare Part B [id number] ANS-Medicaid [id number] ANSI-Commercial [id number] [facility] [id number] ANSI-Commercial [id number] ANS-Medicare Part B [id number] ANSI-Medicare Part B [id number] [facility] [id number] ANSI-Commercial [id number] ANSI-Medicaid [id number] ANSI-Medicare Part B [id number] ANSI-Commercial [id number] HU[employer] GOLD [id number] SP [id number] ANSI-Medicaid [id number] ANSI-Commercial [id number] ANSI-Medicare Part B [id number] Medicaid [place] [facility] Part B [id number] Self [id number] [employer] Medicare Commercial [id number] Self [id number] ANSI-Medicaid [id number] ANSI-Medicare Part B [id number] ANSI-Commercial [id number] ANSI-Medicare Part B [id number] ANSI-Medicaid [id number] ANSI-Commercial [id number] ANSI-Medicaid [id number] ANSI-Commercial [id number] ANSI-Medicare Part B [id number] Medicaid [place] Med[place]ap Part B [id number] Self [id number] ANSI-Medicare Part B [id number] ANSI-Commercial [id number] ANSI-Medicaid [id number] ANSI-Medicare Part B [id number] ANSI-Commercial [id number]-[id number]-3e38-36m3-[id number] ANSI-Medicaid [id number] ANSI-Medicare Part B [id number] ANSI-Medicaid [id number] ANSI-Commercial [id number]-gs67-57d4-[id number] [id number]-tj91-41s4-[id number] ANSI-Medicaid [id number] ANSI-Medicare Part B [id number] ANSI-Commercial 30tbe1mb-6p5d-3ik8-kr7w-[id number] 70ywq9ij-1x2x-1km2-pa7g-[id number] ANSI-Commercial [id number]-099j-896w-ltge9rsg3g10 [id number]-689x-259w-bvkr9znp5h28 ANSI-Medicaid [id number] ANSI-Medicare Part B [id number] ANSI-Medicare Part B [id number] ANSI-Medicaid [id number] ANSI-Commercial 133s1100-[id number]-z6[id number] ANSI-Medicare Part B [id number] [facility] [id number] ANSI-Commercial [id number] ANSI-Medicare Part B [id number] [facility]-Medicaid [id number] ANSI-Commercial [id number] ANSI-Medicare Part B [id number]-[id number] [id number]-zyj4-530t-[id number] [facility] [id number] ANSI-Commercial [id number] ANSI-Commercial [id number]-4v28-[id number] 779776z6-9v9i-3r25-[id number] ANSI-Medicare Part B [id number] ANSI-Medicaid [id number] ANSI-Commercial [id number]-15j3-3653-9t94-e112gw325mb9 yc47k3eo-82x1-9367-5o10-y888zw858mg8 ANSI-Medicare Part B [id number] ANSI-Medicaid [id number] ANSI-Medicare Part B [id number] ANSI-Medicaid [id number] ANSI-Commercial [id number]-15ws-[id number] 96762922-1472-972r-25pu-[id number] ANSI-Commercial [id number]-2551-7k87-e2t1-526018gmw303 [id number]-9943-7q26-[id number] ANSI-Medicaid [id number] ANSI-Medicare Part B [id number] ANSI-Medicaid [id number] ANSI-Medicare Part B [id number] ANSI-Commercial ij77s9h1-516y-91hc-86jc-[id number] ug46e7k9-362h-07fh-95il-nz3i30294oq1 ANSI-Medicare Part B [id number] ANSI-Medicaid [id number] ANSI-Commercial [id number]-p10y-[id number]-a78w-[id number] ANSI-Commercial junx51g4-q77w-6080-h1pw-8282t978w455 jsbs24z3-z38w-2879-m3al-[id number] ANSI-Medicaid [id number] ANSI-Medicare Part B [id number] ANSI-Medicare Part B [id number] ANSI-Commercial [id number]-f60i-059g-t24n-[id number] 602i0g78-e86w-987s-v40o-87xp35vd81k0 ANSI-Medicaid [id number] ANS-Medicare Part B [id number] ANS-Medicaid [id number] ANSI-Commercial 3577rn0w-c2w5-9w77-y178-029lu9t9rnw8 4466cz9z-a9l9-7y67-u373-361lm6w6ogp1 ANSI-Commercial 5fki810v-1is1-50fp-e977-e47a205x5x4l 1wda937w-7yt1-15xp-d166-l73x101j9h4u ANSI-Medicaid [id number] ANS-Medicare Part B [id number] [facility]-Medicaid [id number] ANSI-Commercial j60gme0h-860r-8754-1eiw-6g925z25px60 t85dna5w-772a-9403-5ehu-[id number] ANSI-Medicare Part B [id number] ANSI-Commercial [id number]-7i5x-47hj-7xc8-56889wljavj8 m9lq456d-5m4z-90ya-5eu1-67146aydqur0 ANSI-Medicare Part B [id number] ANSI-Medicaid [id number] ANSI-Medicare Part B [id number] ANSI-Commercial [id number]-861h-0oeq-71wu-[id number] 5m5cy83s-007r-9brf-35vj-6q8840002x4c ANSI-Medicaid [id number] ANSI-Medicaid [id number] ANSI-Medicare Part B [id number] ANSI-Commercial [id number]-0n72-0qs6-3z13-[id number] 3718f00p-8x71-5te6-3a18-[id number] ANSI-Medicaid [id number] ANSI-Commercial 3px63q4d-19at-[id number] 3wt19c2x-80hf-3i39-1a81-846n1xw3076y ANSI-Medicare Part B [id number] ANSI-Medicare Part B [id number] ANSI-Commercial [id number]-qj4glw23p7u4 05651ve6-0189-1298-1a44-ge1zsv28c9e8 ANSI-Medicaid [id number] ANSI-Medicare Part B [id number] ANSI-Medicaid [id number] ANSI-Commercial 549j39de-0690-19qg-o22d-[id number]-3511-39rc-f60g-[id number] ANSI-Medicare Part B [id number] [facility] [id number] ANSI-Commercial [id number]-2ahr-[id number] yj091j13-2p51-20cg-1gpn-[id number] [facility] [id number] ANSI-Medicare Part B [id number] ANSI-Commercial n6wni7i0-7c8a-6p3l-1y93-2131828p2eqo d2iwy5l8-7u4i-4p0h-9v06-5022107p7ook ANSI-Commercial uu2oi660-8rsv-4z1p-9r2c-9d044z50j801 qw2vm872-1fzh-3b7z-5c8w-[id number] [facility]-Medicaid [id number] ANSI-Medicare Part B [id number] ANSI-Commercial [id number]-ni1o-708p-[id number] 3awvj529-ca4m-772i-wmv9-0324z0070s85 [facility]-Medicaid [id number] ANSI-Medicare Part B [id number] ANSI-Medicare Part B [id number] ANSI-Commercial [id number]-w5e6-4dil-[id number]-f8h0-4aof-[id number] [facility]-Medicaid [id number] ANSI-Medicare Part B [id number] [facility]-Medicaid [id number] ANSI-Commercial [id number]-786u-[id number]-[id number] ANSI-Medicare Part B [id number] [facility]-Medicaid [id number] ANSI-Commercial oivicd63-3k1l-[id number] -[id number]-[id number] ANSI-Medicaid [id number] ANSI-Commercial [id number]-8u05-24zw-[id number] [id number]-[id number]-1494-51u7l5xwe1gz ANSI-Medicare Part B [id number] ANSI-Commercial [id number]-928k-[id number]-[id number] ANSI-Medicaid [id number] ANSI-Medicare Part B [id number] MEDICARE [id number] SP [id number] A MEDICAID [id number] SP [id number] [employer] GOLD [id number] SP [id number] MEDICARE [id number] SP [id number] A [employer] PPO [id number] SP [id number] MEDICARE [id number] SP [id number] A MEDICARE [id number] SP [id number] Problems, Conditions, and Diagnoses Code Display Name Description Problem Type Effective Dates Data Source(s) M16.11 [id number] Primary osteoarthritis of right hip Pr oblem 08/08/2020 12:00:00 AM EST [facility] N18.3 Chronic kidney disease stage 3 Stage 3 chronic kidney disease Problem 08/08/2020 12:00:00 AM EST [facility]) J30.2 [id number] 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, 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 Problem 03/14/2020 12:00:00 AM EDT [facility]CW[facility]) Surgeries/Procedures Procedure Description Date Indications Data Source(s) Office Visit, Est Pt., Level 2 FC 10/14/2019 12:00:00 AM EST eCW[facility]) Office Visit, Est Pt., Level 3 PC 10/14/2019 12:00:00 AM EST eCW1 [facility]) Results ID Date Data Source [id number] 04/20/2020 08:07:40 AM EDT eCW1 ([facility]) Name Value Range Interpretation Code Description Data Saba rce(s) Supporting Document(s) Microalbumin/Creatinine [Mass Ratio] in Urine 36.3 CREATININE, URINE eCW1 ([facility]) Albumin/Creatinine [Mass Ratio] in Urine 21.1 MALB URINE SIEMENS eCW1 ([facility]) Microalbumin/Creatinine [Ratio] in Urine 58.1 SANCHO/CREAT RATIO eCW1 ([facility]) ID Date Data Source LIPID PANEL (CARDIAC RISK) 04/18/2020 07:55:06 AM EDT eCW1 ( [facility]) Name Value Range Interpretation Code Description Data Saba rce(s) Supporting Document(s) Triglyceride [Mass/volume] in Serum or Plasma by calculation 146 TRIGLYCERIDES LEVEL eCW1 ([facility]) Cholesterol in LDL [Mass/volume] in Serum or Plasma by calculation 112 LDL CHOLESTEROL eCW1 ([facility]) Cholesterol [Moles/volume] in Serum or Plasma 177 CHOLESTEROL LEVEL eCW1 ([facility]) Cholesterol in HDL [Moles/volume] in Serum or Plasma 36 HDL CHOLESTEROL eCW1 [facility]) 141 NON-HDL-C eCW1 ([facility]) 4.916 CHOLESTEROL RISK RATIO eCW1 ([facility]) ID Date Data Source [id number] 04/18/2020 07:54:51 AM EDT eCW1 ([facility]) Name Value Range Interpretation Code Description Data Saba rce(s) Supporting Document(s) Hemoglobin A1c/Hemoglobin.total in Blood 10.9 HEMOGLOBIN A1c eCW1 ([facility]) ID Date Data Source CBC - Complete Blood Count 04/18/2020 07:54:16 AM EDT eCW1 ( [facility]) Name Value Range Interpretation Code Description Data Saba rce(s) Supporting Document(s) 7.0 WHITE BLOOD COUNT eCW1 ([facility]) 6.24 RED BLOOD COUNT eCW1 ([facility]) 24.7 MEAN CORPUSCULAR HEMOGLOBIN eC W1 ([facility]) 15.4 HEMOGLOBIN eCW1 ([facility]) 78.7 MEAN CORPUSCULAR VOLUME eCW1 ( [facility]) 49.1 HEMATOCRIT eCW1 ([facility]) 31.4 MEAN CORPUSCULAR HGB CONC eCW1 ([facility]) 203 PLATELET COUNT, AUTOMATED eCW1 ([facility]) 19.2 RED CELL DISTRIBUTION WIDTH eC W1 ([facility]) ID Date Data Source Comprehensive Metabolic Profile (CMP) 04/18/2020 07:54:02 AM EDT eCW1 ([facility]) Name Value Range Interpretation Code Description Data Saba rce(s) Supporting Document(s) 23 BLOOD UREA NITROGEN eCW1 ([facility]) 275 GLUCOSE, FASTING eCW1 ([facility]) 133 SODIUM LEVEL eCW1 ([facility]) > 60.0 GLOMERULAR FILTRATION RATE eCW 1 ([facility]) 1.40 CREATININE FOR GFR eCW1 ([facility]) 3.9 POTASSIUM SERUM eCW1 ([facility]) 97 CHLORIDE LEVEL eCW1 ([facility]) 30 CARBON DIOXIDE LEVEL eCW1 ([facility]) 7 AST/SGOT eCW1 ([facility]) 9.0 CALCIUM LEVEL eCW1 ([facility]) 87 ALKALINE PHOSPHATASE eCW1 ([facility]) 7.6 TOTAL PROTEIN eCW1 ([facility]) 16 ALT/SGPT eCW1 ([facility]) 0.6 BILIRUBIN,TOTAL eCW1 ([facility]) 3.6 ALBUMIN eCW1 ([facility]) 0.9 ALBUMIN/GLOBULIN RATIO eCW1 ([facility]) ID Date Data Source URIC ACID 04/18/2020 07:53:43 AM EDT eCW1 ([facility]) Name Value Range Interpretation Code Description Data Saba rce(s) Supporting Document(s) 4.2 URIC ACID eCW1 ([facility]) Procedure Social History Code Duration Value Status Description Data Source(s ) Smoking 11/09/2020 12:00:00 AM EST Never Smoker completed Never S moker eCW1 ([facility]) Smoking 11/09/2020 12:00:00 AM EST Never Smoker completed Never S moker eCW1 ([facility]) Smoking 11/09/2020 12:00:00 AM EST Never Smoker completed Never S moker eCW1 ([facility]) Smoking 09/06/2020 12:00:00 AM EST Never Smoker completed Never S moker eCW1 ([facility]) Smoking 09/06/2020 12:00:00 AM EST Never Smoker completed Never S moker eCW1 ([facility]) Smoking 08/08/2020 12:00:00 AM EST Never Smoker completed Never S moker eCW1 ([facility]) Smoking 08/08/2020 12:00:00 AM EST Never Smoker completed Never S moker eCW1 ([facility]) Smoking 08/08/2020 12:00:00 AM EST Never Smoker completed Never S moker eCW1 ([facility]) Smoking 08/08/2020 12:00:00 AM EST Never Smoker completed Never S moker eCW1 ([facility]) Smoking 08/08/2020 12:00:00 AM EST Never Smoker completed Never S moker eCW1 ([facility]) Smoking 08/01/2020 12:00:00 AM EDT Never Smoker completed Never S moker eCW1 ([facility]) Smoking 08/01/2020 12:00:00 AM EDT Never Smoker completed Never S moker eCW1 ([facility]) Smoking 08/01/2020 12:00:00 AM EDT Never Smoker completed Never S moker eCW1 ([facility]) Smoking 04/19/2020 12:00:00 AM EDT Never Smoker completed Never S moker eCW1 ([facility]) Smoking 04/19/2020 12:00:00 AM EDT Never Smoker completed Never S moker eCW1 ([facility]) Smoking 04/19/2020 12:00:00 AM EDT Never Smoker completed Never S moker eCW1 ([facility]) Smoking 03/14/2020 12:00:00 AM EDT Never Smoker completed Never S moker eCW1 ([facility]) Smoking 03/14/2020 12:00:00 AM EDT Never Smoker completed Never S moker eCW1 ([facility]) Smoking 03/14/2020 12:00:00 AM EDT Never Smoker completed Never S moker eCW1 ([facility]) Smoking 03/14/2020 12:00:00 AM EDT Never Smoker completed Never S moker eCW1 ([facility]) Vital Signs ID Date Data Source UNK Name Value Range Interpretation Code Description Data Source(s) Diastolic blood pressure 60 mm[Hg] 60 mm[Hg] eCW1 ([facility]) Systolic blood pressure 108 mm[Hg] 108 mm[Hg] e CW1 ([facility]) Body temperature 97.0 [degF] 97.0 [degF] eCW1 ( [facility]) Respiratory rate 18 /min 18 /min eCW1 ([facility]) Heart rate 87 /min 87 /min eCW1 ([facility]) Body mass index (BMI) [Ratio] 38.00 kg/m2 38.00 kg/m2 W1 ([facility]) Body height 74 [in_i] 74 [in_i] eCW1 ([facility]) Body weight 296 [lb_av] 296 [lb_av] eCW1 ([facility]) Body surface area Derived from formula 2.52 m2 2.52 m2 [facility] ([facility]) Body weight 128.369 kg 128.369 kg [facility] ([facility] [place] body weight 190 [lb_av] 190 [lb_av] MEDEN T ([facility]) Body mass index (BMI) [Ratio] 36.3 kg/m2 36.3 k g/m2 [facility] ([facility]) Body weight 283.00 [lb_av] 283.00 [lb_av] MED[facility] T ([facility]) Body height 74 [in_i] 74 [in_i] [facility] ([facility]) 6'2" Diastolic blood pressure 64 mm[Hg] 64 mm[Hg] [facility] ([facility]) Systolic blood pressure 110 mm[Hg] 110 mm[Hg] [facility] ([facility]) Diastolic blood pressure 80 mm[Hg] 80 mm[Hg] eCW1 [facility]) Systolic blood pressure 116 mm[Hg] 116 mm[Hg] e CW1 ([facility]) Body temperature 97.1 [degF] 97.1 [degF] eCW1 ( [facility]) Respiratory rate 18 /min 18 /min eCW1 ([facility]) Heart rate 86 /min 86 /min eCW1 ([facility]) Body mass index (BMI) [Ratio] 39.93 kg/m2 39.93 kg/m2 W1 ([facility]) Body height 74 [in_i] 74 [in_i] eCW1 ([facility]) Body weight 311 [lb_av] 311 [lb_av] eCW1 ([facility]) Diastolic blood pressure 72 mm[Hg] 72 mm[Hg] eCW1 [facility]) Systolic blood pressure 114 mm[Hg] 114 mm[Hg] e CW1 ([facility]) Body temperature 98.1 [degF] 98.1 [degF] eCW1 ( [facility]) Respiratory rate 20 /min 20 /min eCW1 ([facility]) Heart rate 110 /min 110 /min eCW1 ([facility]) Body mass index (BMI) [Ratio] 37.61 kg/m2 37.61 kg/m2 eCW1 ([facility]) Body height 74 [in_i] 74 [in_i] eCW1 ([facility]) Body weight 293 [lb_av] 293 [lb_av] eCW1 ([facility]) Diastolic blood pressure 72 mm[Hg] 72 mm[Hg] eCW1 [facility]) Systolic blood pressure 118 mm[Hg] 118 mm[Hg] e CW1 [facility] Body temperature 98.9 [degF] 98.9 [degF] eCW1 ( [facility]) Respiratory rate 18 /min 18 /min eCW1 ([facility]) Heart rate 94 /min 94 /min eCW1 ([facility]) Body mass index (BMI) [Ratio] 37.08 kg/m2 37.08 kg/m2 eCW1 [facility]) Body height 74 [in_i] 74 [in_i] eCW1 ([facility]) Body weight 288.8 [lb_av] 288.8 [lb_av] eCW1 ([facility]) Body surface area Derived from formula 2.45 m2 2.45 m2 [facility], ) Body weight 120.204 kg 120.204 kg [facility] ([facility], ) [place] body weight 190 [lb_av] 190 [lb_av] MEDEN T ([facility]) Body mass index (BMI) [Ratio] 34.0 kg/m2 34.0 k g/m2 [facility], ) Body weight 265.00 [lb_av] 265.00 [lb_av] MEDEN T ([facility]) Body height 74 [in_i] 74 [in_i] [facility] ([facility]) 6'2" Body weight 119.750 kg 119.750 kg [facility] ([facility]) Body mass index (BMI) [Ratio] 33.9 kg/m2 33.9 k g/m2 [facility] ([facility], ) Body weight 264.00 [lb_av] 264.00 [lb_av] MEDEN T ([facility], ) Body height 74 [in_i] 74 [in_i] [facility] ([facility], ) 6'2" Diastolic blood pressure 70 mm[Hg] 70 mm[Hg] [facility] Systolic blood pressure 120 mm[Hg] 120 mm[Hg] e CW1 ([facility]) Body temperature 97 [degF] 97 [degF] eCW1 ([facility]) Respiratory rate 20 /min 20 /min eCW1 ([facility]) Heart rate 88 /min 88 /min eCW1 ([facility]) Body mass index (BMI) [Ratio] 35.69 kg/m2 35.69 kg/m2 eCW[facility]) Body height 74 [in_us] 74 [in_us] eCW1 ([facility]) Body weight Measured 278 [lb_av] 278 [lb_av] eC W1 ([facility]) Patient Treatment Plan of Care Planned Activity Planned Date Details Description Data Source (s) Vitamin D-[address] 25 MCG (1000 UT) 08/05/2020 12:00:00 AM EDT eCW1 ([facility]) Vitamin D-[address] 25 MCG (1000 UT) 08/05/2020 12:00:00 AM EDT eCW1 ([facility]) Wheelchair - 03/28/2020 12:00:00 AM EDT e CW1 ([facility]) Wheelchair _ 03/28/2020 12:00:00 AM EDT e CW1 ([facility]) Lidocaine Hydrochloride 20 MG/ML Mucous Membrane Topic al Solution 03/14/2020 12:00:00 AM EDT eCW1 ([facility]) Lidocaine Hydrochloride 20 MG/ML Mucous Membrane Topic al Solution 03/14/2020 12:00:00 AM EDT eCW1 ([facility]) Lidocaine Hydrochloride 20 MG/ML Mucous Membrane Topic al Solution 03/14/2020 12:00:00 AM EDT eCW1 ([facility]) Lidocaine Hydrochloride 20 MG/ML Mucous Membrane Topic al Solution 03/14/2020 12:00:00 AM EDT eCW1 ([facility]) Amoxicillin 500 MG / Clavulanate 125 MG Oral Tablet [A ugmentin] 11/12/2019 12:00:00 AM EST eCW1 ([facility]) Misc. Devices - 10/14/2019 12:00:00 AM EST eCW1 ([facility])
[2020-12-03] MEDS ORDERED: CARVedilol 12.5 MG TAB PO ONE (08:20)
[2020-12-03] MEDS ORDERED: ENTRESTO 24-26MG TABLET (SACUBITRIL/VALSARTAN) PO STA (08:20)
[2020-12-03 08:27] LABS: BASO % 0.4 % (0.0-1.0); EOS # 0.1 10^3/uL (0.0-0.5); HEMOGLOBIN 14.4 g/dl (13.5-17.5); LYMPH # 0.7 10^3/uL (1.5-5.0); LYMPH % 9.6 % (24.0-44.0); MEAN CORPUSCULAR HEMOGLOBIN 25.8 pg (27.0-33.0); MEAN CORPUSCULAR HGB CONC 31.3 g/dl (32.0-36.5); MEAN CORPUSCULAR VOLUME 82.3 fl (80.0-96.0); MONO # 0.7 10^3/uL (0.0-0.8); MONO % 10.2 % (2.0-8.0); NEUTROPHILS # 5.7 10^3/uL (1.5-8.5); NEUTROPHILS % 78.1 % (36.0-66.0); PLATELET COUNT, AUTOMATED 195 10^3/uL (150-450); RED BLOOD COUNT 5.59 10^6/uL (4.30-6.10); WHITE BLOOD COUNT 7.3 10^3/uL (4.0-10.0)
[2020-12-03 08:38] LABS: INR 1.22; PROTHROMBIN TIME 15.7 SECONDS (12.5-14.3)
--- NOTE | 2020-12-03 08:38 | REP ---
INDICATION: DYSPNEA/COUGH. COMPARISON: 07/30/2020. TECHNIQUE: SINGLE PORTABLE AP VIEW OF THE CHEST WAS PERFORMED. FINDINGS: Cardiomegaly is again noted. There is calcification and ectasia of the thoracic aorta with no change in the mediastinal silhouette. Left pacemaker is again noted. There is no new infiltrate. The lungs are unchanged in appearance. IMPRESSION: Cardiomegaly. No acute infiltrate. <Electronically signed by Sinan Resendez > 12/03/20 [id number]
[2020-12-03 08:42] LABS: ABG BASE EXCESS -0.9 (-2.0-2.0); ABG HCO3 23.4 MEQ/L (22.0-26.0); ABG O2 SATURATION 97.1 % (95.0-99.0); ABG PARTIAL PRESSURE CO2 37.9 mmHg (35.0-45.0); ABG PARTIAL PRESSURE O2 91.1 mmHg (75.0-100.0); ABG STANDARD HCO3 23.7 MEQ/L (22.0-26.0); ABG TOTAL CO2 24.6 MEQ/L (23.0-31.0); ABG pH (ARTERIAL) 7.409 UNITS (7.350-7.450)
[2020-12-03 09:01] LABS: CPK CREATINE PHOSPHOKINASE 100 U/L (39-308); TROPONIN I < 0.02 NG/ML (< 0.10)
[2020-12-03 10:07] LABS: ALBUMIN 3.4 GM/DL (3.2-5.2); ALT/SGPT 20 U/L (12-78); BILIRUBIN,DIRECT 0.6 MG/DL (0.0-0.2); BILIRUBIN,TOTAL 1.1 MG/DL (0.2-1.0); BLOOD UREA NITROGEN 54 MG/DL (7-18); CALCIUM LEVEL 8.8 MG/DL (8.8-10.2); CARBON DIOXIDE LEVEL 27 MEQ/L (21-32); CHLORIDE LEVEL 96 MEQ/L (98-107); CREATININE FOR GFR 1.98 MG/DL (0.70-1.30); GLOMERULAR FILTRATION RATE 42.7 (>42); GLUCOSE, FASTING 188 MG/DL (70-100); NT-PRO BNP 3049 PG/ML (<450); POTASSIUM SERUM 5.4 MEQ/L (3.5-5.1); SODIUM LEVEL 130 MEQ/L (136-145); THYROXINE (T4) 5.9 UG/DL (4.5-12.0); TOTAL PROTEIN 7.4 GM/DL (6.4-8.2)
[2020-12-03] MEDS ORDERED: TORS20TA2 PO (10:20)
[2020-12-03] MEDS ORDERED: cefTRIAXone SOD 2 GM in D5W MINI-BAG PLUS 50 ML IV ONE (10:30)
[2020-12-03] MEDS ORDERED: cefTRIAXone SOD 2 GM VIAL (J0696 PER 250MG) As Ordered ONE (10:52)
[2020-12-03] MEDS ORDERED: CALCIUM CARBONATE 500 MG CHEW U/D As Ordered ONE (13:11)
[2020-12-03] MEDS ORDERED: CALCIUM CARBONATE 500 MG CHEW U/D PO ONE (13:20)
[2020-12-03 13:40] VITALS: BP 99/59
[2020-12-03] MEDS ORDERED: LORazepam 2 MG TAB PO PRN (13:50)
[2020-12-03] MEDS ORDERED: GLUCOSE 4GM CHEW TABLET PO PRN (13:50)
[2020-12-03] MEDS ORDERED: DEXTROSE 50% 50 ML SYRINGE IV PRN (13:50)
[2020-12-03] MEDS ORDERED: GLUCAGON INJ 1MG VIAL SC PRN (13:50)
[2020-12-03] MEDS ORDERED: ACETAMINOPHEN TAB 650MG DOSE (2X325MG) PO PRN (14:00)
--- NOTE | 2020-12-03 14:14 | HPEPDOC ---
[facility] Medical History & Physical Date of Admission Dec 03, 2020 Date of Service: Dec 03, 2020 Primary Care Physician: JIA KRAUS DO Attending Physician: EDWARD PERKINS MD History and Physical CHIEF COMPLAINT: Patient presents with orthopnea and generalized weakness 2 days HISTORY OF PRESENT ILLNESS: Patient is a 75-year-old male with a history of CHF, atrial fibrillation with AICD placement, COPD, IDDMT2 who presents to the emergency department from home with generalized weakness and shortness of breath for the past week. In the ED, 2 g ceftriaxone IV was administered. Pt also reports a wet cough for the past 3 days that is worse when he lies down. He states that he has a chronic cough due to heart failure, however, this has increased in frequency. He reports a productive cough with clear sputum, today, but denies any fevers or chills. He also reports swelling of the bilateral legs. Patient states that he has not been able to take any of his medications for the past 2 days due to not being able to see the labels. He states that he has misplaced his glasses, but feels too weak to find them at this time. Patient also reports that since he is unable to cook due to feeling tired, he has not been eating well. He reports that he has been feeling depressed and for the past week every night, has been drinking 1 pint of bourbon. He denies any headaches, chest pain, palpitations, nausea, vomiting, diarrhea or constipation at this time. He reports that he is able to urinate and have bowel movements without trouble. He reports that he lives at home alone and does not have any support. Patient also reports skin rashes in inguinal folds that he manages with Vaseline and a topical ointment that starts with a C patient cant remember. The skin rash has not improved. PAST MEDICAL HISTORY: #Type 2 diabetes mellitus, controlled, insulin-dependent, with basal insulin. #CHF, systolic and diastolic with dilated cardiomyopathy, ejection fraction 20- 25% with AICD placement. #Obesity. #CKD 3, followed by nephrology/W [facility] #Acute cholecystitis/cholangitis, S/P ERCP and biliary stent. #Fatty liver disease. #Dilated cardiomyopathy. #Hypokalemia. #Hyperparathyroidism. #Hypomagnesemia. #Hypercalcemia. #Right lower quadrant hernia PAST SURGICAL HISTORY: #AICD placement in 2015. #Left total knee replacement, 2003. #Right total knee replacement, 2003 #Left inguinal hernia, 1996. SOCIAL HISTORY: Reports drinking one pint of bourbon every day for the past week, occasional alcohol use prior to this. Denies tobacco use. Denies marijuana, heroin, cocaine, PCP, or other illicit drug use. Lives at home alone. FAMILY HISTORY: Reviewed and non-contributory ALLERGIES: Please see below. REVIEW OF SYSTEMS: Constitutional: Denies fevers, chills, night sweats, or recent unexpected weight change HEENT: Denies headaches, head trauma, no visual changes or eye pain, denies nosebleeds or difficulty swallowing, reports nasal congestion well-managed with Flonase nasal spray. Cardiovascular: Denies chest pain, palpitations, reports orthopnea Respiratory: See HPI GI: Denies nausea, vomiting, abdominal pain, diarrhea, or constipation : Denies pain with urination or increased frequency Musculoskeletal: Denies changes in joint pain, reports generalized weakness Neuro/psych: Denies intrinsic muscle weakness or sensory loss and reports being tired Skin: Reports some lesions on his back due to pressure from sitting, and reports lesions on legs that are not secondary to trauma HOME MEDICATIONS: Please see below. PHYSICAL EXAMINATION: VITAL SIGNS: See below GENERAL APPEARANCE: Patient appears in moderate distress, sitting upright in bed, alert and cooperative HEENT: NC, AT, EOMI, scleral icterus present, moist mucous membranes CARDIOVASCULAR: Distant heart sounds, likely secondary to body habitus, normal rate, irregularly regular rhythm, normal S1-S2. No murmurs, rubs or gallops appreciated. LUNGS: Inspiratory crackles and expiratory wheezes appreciated with full breath sounds, no rhonchi appreciated. ABDOMEN: Soft, non-tender, abdominal distention present, bowel sounds present. Periumbilical Ill-defined reducible protrusion present on the right, increased with Valsalva. EXTREMITIES: 3+ pitting edema appreciated NEUROLOGICAL: No focal or sensory deficits. CN II-XII grossly intact. PSYCHIATRIC: Normal mood and affect LABORATORY DATA: See below. IMAGIN12/03/2020XR: Cardiomegaly. No acute infiltrate. MICROBIOLOGY: Please see below. Assessment/Plan: #Shortness of breath secondary to decompensated systolic heart failure, likely due to noncompliance on medications -Start IV furosemide 60 mg every 8 hours -Continue home medications: Carvedilol 12.5 mg twice a day, and aspirin 81 mg daily -Holding Entresto 24 mg26 mg tablet twice a day at this time due to hyperkalemia -Echocardiogram from 07/2020 shows ejection fraction of 20-25%. -Continue to monitor BMP, magnesium levels -Monitor intake and output -Restrict sodium to less than 2 g -Fluid restriction, 1700 cc -Follows with Dr. Biswas, managing attorney - patient has followed up in ~2 years #Atrial fibrillation with AICD placement - Currently rhythm is A. fib - rate controlled -Continue home medication: Carvedilol 12.5 mg twice a day. -Continue home dose of Eliquis, 5 mg BID. #Hyperkalemia -Patient will be receiving first Furosemide at 60 mg IV every 8 hours at this time. -Continue to monitor BMP -Admitting EKG shows peaked T waves or changes from prior. -Will hold QUINTEN-I/ARB -Admitting patient to PCU with telemetry. Hyponatremia - Likely 2/2 hypotonic hypervolemic etiology - Will c/w diuresis #IDDMT2 -Started patient on sliding scale insulin. -Start Levemir 10 units daily at bedtime -Continue to monitor blood glucose via BMP #HTN -Patient is currently normotensive. -Hold Entresto due to hyperkalemia at this time #CKD Stage 3 - Baseline Cr 1.6-2.0; approximately at baseline currently - Clinically appears volume overloading - c/w Diuresis #Alcohol use. -Patient reports extensive alcohol drinking in the past week. -CIWA protocol ordered. -Thiamine, folic acid, and multivitamin ordered. -Ativan ordered #Tinea Cruris -Start nystatin powder administration in inguinal folds. #Hyperbilirubinemia. -CMP ordered, continue to monitor #Gout -Continue Febuxostat 80 mg tablet #Hernia -Patient is scheduled for hernia repair in December and has a pre-operative evaluation scheduled for 12/12/2020 -Start docusate sodium 100mg PO BID s/p Hemoptysis - Patient reports he has seen Dr. Guerrero of ENT; has had correction of a septal problem - Has since been restarted on Eliquis by outpatient providers - Patient has been on Eliquis for 2 months so far DVT prophylaxis: Eliquis 5mg BID for atrial fibrillation. Vital Signs Vital Signs Date Time Temp Pulse Resp B/P (MAP) Pulse Ox O2 Delivery O2 Flow Rate FiO2 12/03/20 08:38 102 124/71 12/03/20 08:10 98 Room Air 12/03/20 07:38 97.8 24 Laboratory Data Labs 24H Laboratory Tests 2 12/03/20 08:07: Prothrombin Time 15.7H, Prothromb Time International Ratio 1.22 12/03/20 08:08: Immature Granulocyte % (Auto) 0.7, Neutrophils (%) (Auto) 78.1H, Lymphocytes (%) (Auto) 9.6L, Monocytes (%) (Auto) 10.2H, Eosinophils (%) (Auto) 1.0, Basophils (%) (Auto) 0.4, Neutrophils # (Auto) 5.7, Lymphocytes # (Auto) 0.7L, Monocytes # (Auto) 0.7, Eosinophils # (Auto) 0.1, Basophils # (Auto) 0.0, Nucleated Red Blood Cells % (auto) 0.0, Anion Gap 7L, Glomerular Filtration Rate 42.7, Lactic Acid Level 2.6*H, Calcium Level 8.8, Total Bilirubin 1.1H, Direct Bilirubin 0.6H, Aspartate Amino Transf (AST/SGOT) 4L, Alanine Aminotransferase (ALT/SGPT) 20, Alkaline Phosphatase 70, Total Creatine Kinase 100, Creatine Kinase MB 3.0, Creatine Kinase MB Relative Index 3.00, Troponin I < 0.02, PR-Jsc-U-Type Natriuretic Peptide 3049H, Total Protein 7.4, Albumin 3.4, Albumin/Globulin Rati o 0.9, Thyroid Stimulating Hormone (TSH) 4.400H, Thyroxine (T4) 5.9 12/03/20 08:17: POC Glucose (Misc Panel) 188H, POC Sodium (Misc Panel) 130L, POC Potassium (Misc Panel) 5.2H, POC Chloride (Misc Panel) 95L, POC Total CO2 (Misc Panel) 25.0, POC Blood Urea Nitrogen (Misc Panel 47H, POC Ionized Calcium (Misc Panel) 4.9, POC Creatinine (Misc Panel) 1.9H, POC Hematocrit (Misc Panel) 50.0 12/03/20 08:26: Blood Gas Bicarbonate Standard 23.7, Arterial Blood pH 7.409, Arterial Blood Partial Pressure CO2 37.9, Arterial Blood Partial Pressure O2 91.1, Arterial Blood Total CO2 24.6, Arterial Blood HCO3 23.4, Arterial Blood Base Excess -0.9, Arterial Blood Oxygen Saturation 97.1 12/03/20 08:55: Urine Color YELLOW, Urine Appearance HAZY, Urine pH 5.0, Urine Specific Toney 1.011, Urine Protein 1+H, Urine Glucose (UA) NEGATIVE, Urine Ketones NEGATIVE, Urine Blood NEGATIVE, Urine Nitrite NEGATIVE, Urine Bilirubin NEGATIVE, Urine Urobilinogen 0.2, Urine Leukocyte Esterase 3+H, Urine WBC (Auto) 58H, Urine RBC (Auto) 3, Urine Hyaline Casts (Auto) 0, Urine Bacteria (Auto) 2+H, Urine Squamous Epithelial Cells 0, Urine Sperm (Auto) CBC/BMP Laboratory Tests 12/03/20 08:08 Microbiology Microbiology 12/03/20 Urine Culture, Received Pending 12/03/20 Blood Culture, Received Pending 12/03/20 Respiratory Virus Panel (PCR) (MIKI) - Final, Complete 12/03/20 Blood Culture, Received Pending Home Medications Scheduled Aspirin (Aspirin EC) 81 Mg Tab, 81 MG PO QHS Carvedilol (Carvedilol) 12.5 Mg Tablet, 12.5 MG PO BID Cholecalciferol (Vitamin D3) (Vitamin D3) 1,000 Unit Tablet, 1,000 UNITS PO DAILY Febuxostat (Febuxostat) 80 Mg Tablet, 80 MG PO DAILY Insulin Glargine,Hum.rec.anlog (Toujeo Solostar) 300 Unit/Ml Inj, 10 UNITS SC QHS Sacubitril/Valsartan (Entresto 24 mg-26 mg Tablet) 1 Each Tablet, 1 TAB PO BID Sitagliptin (Januvia) 50 Mg Tab, 50 MG PO DAILY Torsemide (Torsemide) 100 Mg Tablet, 100 MG PO DAILY Torsemide (Torsemide) 20 Mg Tablet, 20 MG PO QHS Scheduled PRN Fluticasone Propionate (Fluticasone Propionate) 50 Mcg/Act Spr, 1 SPRAY NARES BID PRN for NASAL CONGESTION Allergies Coded Allergies: No Known Allergies (Unverified , 11/09/19) GME ATTESTATION GME ATTESTATION My faculty preceptor for this patient encounter was physically present during the encounter and was fully available. All aspects of the patient interview, exa mination, medical decision making process, and medical care plan development were reviewed and approved by the faculty preceptor. The faculty preceptor is aware and concurs with the plan as stated in the body of this note and will attest to such by his/her cosignature. ATTENDING NOTE I, Edward Perkins, have independently examined this patient and performed my own physical exam, as well as reviewed the documentation and edited where necessary. I have discussed in detail with the resident / student the findings and plan of treatment as documented by the resident / student and edited their note. I agree with their findings and treatment plan and have edited their documentation. I will continue to follow the patient during this hospital stay. Jose Angel Velázquez DO Dec 03, 2020 14:14 EDWARD PERKINS MD Dec 03, 2020 15:21
[2020-12-03] MEDS: FEBUXOSTAT 40 MG TABLET (ULORIC) PO SCH (15:45)
[2020-12-03] MEDS: THIAMINE 100 MG TAB PO SCH (15:45)
[2020-12-03] MEDS: VITAMIN D 1,000 INTERNATIONAL UNITS TABLET PO SCH (15:46)
[2020-12-03] MEDS: FOLIC ACID 1 MG TAB PO SCH (15:46)
[2020-12-03] MEDS: MULTIVITAMINS/MINERALS THERAP 1 TAB PO SCH (15:46)
[2020-12-03] MEDS: FLUTICASONE PROP 0.05% NASAL SPRAY 16 GM (FLONASE) NARES PRN ×2 (15:59→20:01)
[2020-12-03 16:00] VITALS: BP 94/73
[2020-12-03] MEDS: FUROSEMIDE 100MG/10ML VIAL (J1940) IV SCH (16:00)
[2020-12-03] MEDS ORDERED: DEXTROMETHORPHAN 60MG/10ML SUSP 90ML BTL(DELSYM) PO PRN (17:10)
[2020-12-03 17:25] VITALS: BP 100/64
--- NOTE | 2020-12-03 17:27 | REP ---
INDICATION: diffuse abd pain ABDOMINAL PAIN. COMPARISON: 07/30/2020. TECHNIQUE: CT Scan of the abdomen and pelvis was performed without intravenous contrast. Sagittal and coronal reconstruction images performed. FINDINGS: Lung bases: THERE ARE MILD INTERSTITIAL FIBROTIC CHANGES. There is mild cardiomegaly. There is mild pericardial fluid or thickening unchanged. Liver: Grossly unremarkable. Gallbladder: Collapsed. Biliary air is again noted. A biliary stent is noted in the distal common bile duct crossing the ampulla of Vater. Spleen: Grossly unremarkable.. Adrenals: Normal. Pancreas: Grossly unremarkable.. Kidneys: There is an 8 mm calcification lower pole the right kidney. A punctate calcification is seen in the lower pole of the left kidney. There is no hydroureteronephrosis. Small and large bowel: There is diffuse colonic diverticulosis. There is no acute diverticulitis. There is an umbilical hernia containing inflamed fat. The aperture of the hernia is 1.9 cm in width. There is no bowel in the hernia. Free fluid: None. Abdominal aorta: No aneurysm. Adenopathy: None. Appendix: Not inflamed. Osseous structures: THERE ARE CHRONIC COMPRESSION DEFORMITIES OF L2 AND L3 WITH DIFFUSE DEGENERATIVE CHANGES.. Pelvis: No mass. No bladder calculus seen. IMPRESSION: Umbilical hernia contains inflamed fat. The neck of the hernia does not appear to be constricted, the aperture of the hernia is approximately 1.9 cm in width. There is no bowel in the hernia. There is no free air or free fluid. There is no evidence of bowel obstruction or inflammation. The appendix is normal. <Electronically signed by Sinan Resendez > 12/03/20 2091
[2020-12-03] MEDS: HumaLOG INSULIN (NovoLOG) PER UNIT SC SCH ×2 (17:54→21:00)
[2020-12-03] MEDS: guaiFENesin SYRUP 200 MG/10 ML UDC PO PRN ×2 (17:54→19:59)
[2020-12-03 20:00] VITALS: BP 106/59
[2020-12-03] MEDS: DOCUSATE SODIUM 100MG CAPSULE PO SCH (20:59)
[2020-12-03] MEDS: APIXABAN 5 MG TAB (ELIQUIS) PO SCH (20:59)
[2020-12-03] MEDS ORDERED: CARVedilol 12.5 MG TAB PO SCH (21:00)
[2020-12-03] MEDS ORDERED: ASPIRIN 81 MG ENTERIC TAB PO SCH (21:00)
[2020-12-03] MEDS: NYSTATIN 100,000 UNITS/GM TOPICAL PWD 15 GM TOP SCH (21:03)
[2020-12-03] MEDS: LEVEMIR (INSULIN DETEMIR) 1 UNITS/0.01ML SC SCH (21:04)
[2020-12-03] MEDS ORDERED: CALCIUM CARBONATE 500 MG CHEW U/D PO PRN (21:10)
[2020-12-03] MEDS ORDERED: BENZONATATE 100 MG CAP PO PRN (21:10)
[2020-12-04] VITALS (8 sets, daily range): BP systolic 110–123; BP diastolic 50–97
[2020-12-04] MEDS: FUROSEMIDE 100MG/10ML VIAL (J1940) IV SCH ×3 (00:01→16:32)
[2020-12-04] MEDS: guaiFENesin SYRUP 200 MG/10 ML UDC PO PRN ×3 (01:34→18:25)
[2020-12-04 05:48] LABS: BASO % 0.5 % (0.0-1.0); EOS # 0.1 10^3/uL (0.0-0.5); EOS % 0.9 % (0.0-3.0); HEMATOCRIT 45.2 % (42.0-52.0); HEMOGLOBIN 14.5 g/dl (13.5-17.5); LYMPH # 0.9 10^3/uL (1.5-5.0); LYMPH % 11.8 % (24.0-44.0); MEAN CORPUSCULAR HEMOGLOBIN 26.3 pg (27.0-33.0); MEAN CORPUSCULAR HGB CONC 32.1 g/dl (32.0-36.5); MONO % 13.5 % (2.0-8.0); NEUTROPHILS # 5.6 10^3/uL (1.5-8.5); NEUTROPHILS % 72.9 % (36.0-66.0); PLATELET COUNT, AUTOMATED 187 10^3/uL (150-450); RED BLOOD COUNT 5.51 10^6/uL (4.30-6.10); WHITE BLOOD COUNT 7.6 10^3/uL (4.0-10.0)
[2020-12-04 06:18] LABS: ALBUMIN 3.5 GM/DL (3.2-5.2); BILIRUBIN,TOTAL 1.8 MG/DL (0.2-1.0); CALCIUM LEVEL 9.4 MG/DL (8.8-10.2); CREATININE FOR GFR 1.9 MG/DL (0.70-1.30); GLOMERULAR FILTRATION RATE 44.8 (>42); MAGNESIUM LEVEL 2.5 MG/DL (1.8-2.4); POTASSIUM SERUM 5.5 MEQ/L (3.5-5.1); TOTAL PROTEIN 7.6 GM/DL (6.4-8.2)
[2020-12-04] MEDS: VITAMIN D 1,000 INTERNATIONAL UNITS TABLET PO SCH (08:39)
[2020-12-04] MEDS: HumaLOG INSULIN (NovoLOG) PER UNIT SC SCH ×4 (08:39→21:00)
[2020-12-04] MEDS: FEBUXOSTAT 40 MG TABLET (ULORIC) PO SCH (08:39)
[2020-12-04] MEDS: MULTIVITAMINS/MINERALS THERAP 1 TAB PO SCH (08:39)
[2020-12-04] MEDS: DOCUSATE SODIUM 100MG CAPSULE PO SCH ×2 (08:39→21:35)
[2020-12-04] MEDS: THIAMINE 100 MG TAB PO SCH (08:40)
[2020-12-04] MEDS: FOLIC ACID 1 MG TAB PO SCH (08:40)
[2020-12-04] MEDS: APIXABAN 5 MG TAB (ELIQUIS) PO SCH ×2 (08:40→21:36)
[2020-12-04] MEDS: CARVedilol 6.25 MG TAB PO SCH ×2 (08:40→21:35)
[2020-12-04] MEDS: NYSTATIN 100,000 UNITS/GM TOPICAL PWD 15 GM TOP SCH ×2 (08:41→21:37)
[2020-12-04] MEDS ORDERED: SLF 3 ML SYR IV PRN (09:50)
--- NOTE | 2020-12-04 11:00 | IPNPDOC ---
Text Note Date of Service The patient was seen on 12/04/20. NOTE Subjective: Patient is a 75-year-old male with a PMHx of Systolic CHF (EF: 20-25%), Hx of Vtach s/p AICD, A. fib, COPD, IDDM2, who presented to the ER with weakness / shortness of breath and leg swelling. Patient has reported he has been noncompliant with his diuretic therapy. In the emergency room, patient was found to be in decompensated heart failure. Patient was admitted to the hospitalist service for further evaluation and treatment. Patient was seen and examined at the bedside. Patient was seen sitting up in bed, appears to be comfortable. Reports he feels better, still reports a cough mostly nonproductive with some amounts of clear sputum. Denies any chest pain or palpitations. Has not experience any nausea, vomiting, abdominal pain, denies any diarrhea. Reports he has been urinating, but no discomfort. Objective: Vitals (See below) General: Sitting up in bed, appears comfortable, AAOx3 HEENT: NC, AT CVS: +S1S2 Lungs: Fair air entry b/l, no definitive wheezing, crackles or rales appreciated on auscultation Abdomen: Soft, ND, NT, Obese Extremities: 3+ pitting edema up to knee, - Calf tenderness Imaging: CXR 12/03: Cardiomegaly. No acute infiltrate. CT abdomen / pelvis 12/03: Umbilical hernia contains inflamed fat. The neck of the hernia does not appear to be constricted, the aperture of the hernia is approximately 1.9 cm in width. There is no bowel in the hernia. There is no free air or free fluid. There is no evidence of bowel obstruction or inflammation. The appendix is normal. Assessment and plan: Shortness of breath / Edema - likely 2/2 acute decompensated systolic heart failure (EF: 20-25%) - likely 2/2 noncompliance on medications - Patient reports this morning that his breathing is doing better - Physical still reveals signs of fluid overload - BNP was elevated on admission - ECHO 07/2020 shows ejection fraction of 20-25%. - Imaging noted above - Strict ins and outs / daily weights / fluid restriction - c/w Furosemide 60 IV BID Dilated cardiomyopathy Atrial fibrillation - Rate controlled A. fib - c/w rate control with Carvedilol - c/w anticoagulation with Eliquis Hx of Vtach - s/p AICD - c/w Carvedilol with hold parameters Hyperkalemia - EKG without any peaked T-waves - Will c/w telemetry - Will hold Entresto - Will repeat EKG - Will follow repeat BMP - c/w Diuresis Hyponatremia - likely 2/2 hypotonic hypervolemic etiology - c/w diuresis IDDM2 - c/w Levemir for long acting coverage - c/w ISS HTN - BP well controlled - Will hold Entresto (re: Hyperkalemia) - Will reduce dose of Carvedilol (re: allow for all doses of Furosemide to be administered) CKD3 - Baseline Cr 1.6-2.0; approximately at baseline currently - Clinically appears volume overloading - c/w Diuresis Alcohol abuse - Reported his last drink was - No evidence of withdrawal - c/w CIWA protocol with Ativan - c/w Thiamine, Folate, MVI Inguinal fold with likely intertrigo - c/w Nystatin Gout - c/w Febuxostat Hernia - Scheduled for hernia repair; has pre-operative evaluation for 12/12/2020 s/p Hemoptysis - Patient reports he has seen Dr. Guerrero of ENT; has had correction of a septal problem - Has since been restarted on Eliquis by outpatient providers - Patient has been on Eliquis for 2 months so far DVT prophylaxis - c/w Eliquis Disposition: - Awaiting clinical improvement VS,Fishbone, I+O VS, Fishbone, I+O Laboratory Tests 12/04/20 05:17 Vital Signs Date Time Temp Pulse Resp B/P (MAP) Pulse Ox O2 Delivery O2 Flow Rate FiO2 12/04/20 08:40 98 123/50 12/04/20 08:00 97.1 20 95 Room Air I&O- Last 24 Hours up to 6 AM 12/04/20 06:00 Intake Total 655 ml Output Total 785 ml Balance -130 ml LIBBY [place] MD Dec 04, 2020 11:00
[2020-12-04 11:05] LABS: CALCIUM LEVEL 8.6 MG/DL (8.8-10.2); CREATININE FOR GFR 1.84 MG/DL (0.70-1.30); GLOMERULAR FILTRATION RATE 46.5 (>42); MAGNESIUM LEVEL 2.4 MG/DL (1.8-2.4); POTASSIUM SERUM 5.7 MEQ/L (3.5-5.1)
[2020-12-04] MEDS ORDERED: SOD POLYSTYRENE SULFONATE SUSP 15 GM/60 ML UD PO ONE (12:00)
[2020-12-04] MEDS: ASPIRIN 81 MG ENTERIC TAB PO SCH (12:08)
[2020-12-04] MEDS: SLF 3 ML SYR IV SCH ×2 (14:02→21:37)
--- NOTE | 2020-12-04 17:32 | ECGEPIP ---
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 Electronically Signed on 12-04-2020 17:32:22 EST by Fabricio Frank
[2020-12-04 18:40] LABS: CREATININE FOR GFR 1.97 MG/DL (0.70-1.30); POTASSIUM SERUM 4.5 MEQ/L (3.5-5.1)
--- NOTE | 2020-12-04 19:12 | ECGEPIP ---
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
[2020-12-04] MEDS: LEVEMIR (INSULIN DETEMIR) 1 UNITS/0.01ML SC SCH (21:36)
[2020-12-05] VITALS (8 sets, daily range): BP systolic 114–139; BP diastolic 68–83
[2020-12-05] MEDS: FUROSEMIDE 100MG/10ML VIAL (J1940) IV SCH ×3 (00:47→15:56)
[2020-12-05] MEDS: guaiFENesin SYRUP 200 MG/10 ML UDC PO PRN ×3 (03:03→21:14)
[2020-12-05 04:51] LABS: BASO % 0.7 % (0.0-1.0); EOS # 0.2 10^3/uL (0.0-0.5); EOS % 3.1 % (0.0-3.0); HEMOGLOBIN 14.2 g/dl (13.5-17.5); LYMPH # 0.9 10^3/uL (1.5-5.0); LYMPH % 15.6 % (24.0-44.0); MEAN CORPUSCULAR HGB CONC 31.6 g/dl (32.0-36.5); MEAN CORPUSCULAR VOLUME 82.4 fl (80.0-96.0); MONO # 0.7 10^3/uL (0.0-0.8); MONO % 12.3 % (2.0-8.0); NEUTROPHILS % 68.1 % (36.0-66.0); PLATELET COUNT, AUTOMATED 166 10^3/uL (150-450); RED BLOOD COUNT 5.46 10^6/uL (4.30-6.10); WHITE BLOOD COUNT 5.8 10^3/uL (4.0-10.0)
[2020-12-05 05:14] LABS: ALBUMIN 3.1 GM/DL (3.2-5.2); CALCIUM LEVEL 8.5 MG/DL (8.8-10.2); CREATININE FOR GFR 1.75 MG/DL (0.70-1.30); GLOMERULAR FILTRATION RATE 49.3 (>42); MAGNESIUM LEVEL 2.3 MG/DL (1.8-2.4); POTASSIUM SERUM 4.1 MEQ/L (3.5-5.1); TOTAL PROTEIN 7.2 GM/DL (6.4-8.2)
[2020-12-05] MEDS: SLF 3 ML SYR IV SCH ×3 (05:48→21:14)
--- NOTE | 2020-12-05 08:21 | IPNPDOC ---
Text Note Date of Service The patient was seen on 12/05/20. NOTE Subjective: Patient is a 75-year-old male with a PMHx of Systolic CHF (EF: 20-25%), Hx of Vtach s/p AICD, A. fib, COPD, IDDM2, who presented to the ER with weakness / shortness of breath and leg swelling. Patient has reported he has been noncompliant with his diuretic therapy. In the emergency room, patient was found to be in decompensated heart failure. Patient was admitted to the hospitalist service for further evaluation and treatment. Patient was seen and examined at the bedside. Patient reports that his night was uneventful. Reports that his breathing is doing better. Denies any significant cough. No chest pain or palpitations. Denies any nausea, vomiting. Reports that they're abdominal swelling has improved. Lower extremity still have pitting jad a Objective: Vitals (See below) General: Laying in bed, appears to be comfortable, no acute distress, is awake and alert 3 HEENT: NC, AT CVS: +S1S2 Lungs: Appears to have fair air entry bilaterally without any evidence of crackles, wheezing or rhonchi Abdomen: Remains nondistended and nontender, soft but obese Extremities: Lower extremities still reveal 3+ pitting edema Imaging: CXR 12/03: Cardiomegaly. No acute infiltrate. CT abdomen / pelvis 12/03: Umbilical hernia contains inflamed fat. The neck of the hernia does not appear to be constricted, the aperture of the hernia is approximately 1.9 cm in width. There is no bowel in the hernia. There is no free air or free fluid. There is no evidence of bowel obstruction or inflammation. The appendix is normal. Assessment and plan: Shortness of breath / Edema - likely 2/2 acute decompensated systolic heart failure (EF: 20-25%) - likely 2/2 noncompliance on medications - Patient reports that his breathing is doing a lot better - Fluid overload still persists, however portions of his abdomen that revealed some edema have improved - Patient remains negative fluid balance - BNP was elevated on admission - ECHO 07/2020 shows ejection fraction of 20-25%. - Imaging noted above - Strict ins and outs / daily weights / fluid restriction - c/w Furosemide 60 IV BID Dilated cardiomyopathy - c/w ASA Atrial fibrillation - Rate controlled A. fib - c/w rate control with Carvedilol (adjusted dose) - c/w anticoagulation with Eliquis Hx of Vtach - s/p AICD - c/w Carvedilol with hold parameters s/p Hyperkalemia - s/p Kayexalate Hyponatremia - likely 2/2 hypotonic hypervolemic etiology - c/w diuresis IDDM2 - c/w Levemir for long acting coverage - c/w ISS HTN - BP well controlled - Will resume Entresto within 24 hours (Was held for hyperkalemia) - c/w reduced dose Carvedilol (re: allow for all doses of Furosemide to be administered) CKD3 - Baseline Cr 1.6-2.0; approximately at baseline currently - Clinically appears volume overloading - c/w Diuresis Alcohol abuse - Reported his last drink was - No evidence of withdrawal - c/w CIWA protocol with Ativan - c/w Thiamine, Folate, MVI Inguinal fold with likely intertrigo - c/w Nystatin Gout - c/w Febuxostat Hernia - Scheduled for hernia repair; has pre-operative evaluation for 12/12/2020 s/p Hemoptysis - Patient reports he has seen Dr. Guerrero of ENT; has had correction of a septal problem - Has since been restarted on Eliquis by outpatient providers - Patient has been on Eliquis for 2 months so far DVT prophylaxis - c/w Eliquis Disposition: - Awaiting clinical improvement VS,Wallace, I+O VS, Wallace, I+O Laboratory Tests 12/04/20 10:37 12/04/20 17:56 12/05/20 04:30 Vital Signs Date Time Temp Pulse Resp B/P (MAP) Pulse Ox O2 Delivery O2 Flow Rate FiO2 12/05/20 07:29 97.7 102 18 120/81 (94) 94 Room Air I&O- Last 24 Hours up to 6 AM 12/05/20 06:00 Intake Total 740 ml Output Total 2615 ml Balance -1875 ml LIBBY [place] MD Dec 05, 2020 08:21
[2020-12-05] MEDS: HumaLOG INSULIN (NovoLOG) PER UNIT SC SCH ×4 (08:22→21:00)
[2020-12-05] MEDS: VITAMIN D 1,000 INTERNATIONAL UNITS TABLET PO SCH (08:23)
[2020-12-05] MEDS: THIAMINE 100 MG TAB PO SCH (08:23)
[2020-12-05] MEDS: ASPIRIN 81 MG ENTERIC TAB PO SCH (08:23)
[2020-12-05] MEDS: FOLIC ACID 1 MG TAB PO SCH (08:23)
[2020-12-05] MEDS: FEBUXOSTAT 40 MG TABLET (ULORIC) PO SCH (08:23)
[2020-12-05] MEDS: CARVedilol 6.25 MG TAB PO SCH ×2 (08:23→21:00)
[2020-12-05] MEDS: MULTIVITAMINS/MINERALS THERAP 1 TAB PO SCH (08:23)
[2020-12-05] MEDS: DOCUSATE SODIUM 100MG CAPSULE PO SCH ×2 (08:23→21:16)
[2020-12-05] MEDS: APIXABAN 5 MG TAB (ELIQUIS) PO SCH ×2 (08:23→21:15)
[2020-12-05] MEDS: NYSTATIN 100,000 UNITS/GM TOPICAL PWD 15 GM TOP SCH ×2 (08:24→21:17)
[2020-12-05] MEDS: LEVEMIR (INSULIN DETEMIR) 1 UNITS/0.01ML SC SCH (21:15)
[2020-12-06] MEDS: FUROSEMIDE 100MG/10ML VIAL (J1940) IV SCH ×2 (00:17→08:13)
[2020-12-06 00:18] VITALS: BP 106/71
[2020-12-06] MEDS: SLF 3 ML SYR IV SCH ×2 (05:36→14:23)
[2020-12-06 06:00] VITALS: BP 116/79
[2020-12-06 06:05] LABS: BASO # 0.1 10^3/uL (0.0-0.2); BASO % 0.7 % (0.0-1.0); EOS # 0.2 10^3/uL (0.0-0.5); EOS % 3.1 % (0.0-3.0); HEMATOCRIT 46.2 % (42.0-52.0); HEMOGLOBIN 14.3 g/dl (13.5-17.5); LYMPH % 13.6 % (24.0-44.0); MEAN CORPUSCULAR HEMOGLOBIN 25.7 pg (27.0-33.0); MEAN CORPUSCULAR VOLUME 82.9 fl (80.0-96.0); MONO # 0.8 10^3/uL (0.0-0.8); MONO % 10.9 % (2.0-8.0); NEUTROPHILS # 5.3 10^3/uL (1.5-8.5); NEUTROPHILS % 71.2 % (36.0-66.0); PLATELET COUNT, AUTOMATED 173 10^3/uL (150-450); RED BLOOD COUNT 5.57 10^6/uL (4.30-6.10); WHITE BLOOD COUNT 7.5 10^3/uL (4.0-10.0)
[2020-12-06 06:27] LABS: ALBUMIN 3.3 GM/DL (3.2-5.2); BILIRUBIN,TOTAL 1.3 MG/DL (0.2-1.0); CALCIUM LEVEL 9.2 MG/DL (8.8-10.2); CREATININE FOR GFR 1.74 MG/DL (0.70-1.30); GLOMERULAR FILTRATION RATE 49.6 (>42); MAGNESIUM LEVEL 2.1 MG/DL (1.8-2.4); TOTAL PROTEIN 7.4 GM/DL (6.4-8.2)
[2020-12-06] MEDS: FEBUXOSTAT 40 MG TABLET (ULORIC) PO SCH (08:12)
[2020-12-06] MEDS: ASPIRIN 81 MG ENTERIC TAB PO SCH (08:12)
[2020-12-06] MEDS: DOCUSATE SODIUM 100MG CAPSULE PO SCH ×2 (08:12→20:35)
[2020-12-06] MEDS: HumaLOG INSULIN (NovoLOG) PER UNIT SC SCH ×4 (08:12→20:18)
[2020-12-06] MEDS: THIAMINE 100 MG TAB PO SCH (08:13)
[2020-12-06] MEDS: MULTIVITAMINS/MINERALS THERAP 1 TAB PO SCH (08:13)
[2020-12-06] MEDS: FOLIC ACID 1 MG TAB PO SCH (08:13)
[2020-12-06] MEDS: APIXABAN 5 MG TAB (ELIQUIS) PO SCH ×2 (08:13→20:35)
[2020-12-06] MEDS: VITAMIN D 1,000 INTERNATIONAL UNITS TABLET PO SCH (08:13)
[2020-12-06] MEDS: NYSTATIN 100,000 UNITS/GM TOPICAL PWD 15 GM TOP SCH ×2 (08:14→20:34)
[2020-12-06] MEDS: CARVedilol 6.25 MG TAB PO SCH ×2 (08:37→20:19)
--- NOTE | 2020-12-06 11:09 | IPNPDOC ---
Text Note Date of Service The patient was seen on 12/06/20. NOTE Subjective: Patient is a 75-year-old male with a PMHx of Systolic CHF (EF: 20-25%), Hx of Vtach s/p AICD, A. fib, COPD, IDDM2, who presented to the ER with weakness / shortness of breath and leg swelling. Patient has reported he has been noncompliant with his diuretic therapy. In the emergency room, patient was found to be in decompensated heart failure. Patient was admitted to the hospitalist service for further evaluation and treatment. Patient was seen and examined at the bedside. Patient reports that his breathing is doing better sitting up in chair, appears comfortable. Denies any chest pain, palpitations, cough or shortness of breath. Has not experience any nausea, vomiting, abdominal pain. Reports that his lower extremity swelling has been doing better. Patient did work with physical therapy yesterday and was advised that he could go home with services when medically cleared. Objective: Vitals (See below) General: Sitting up in chair, appears to be comfortable, not in any acute distress, alert and oriented 3 HEENT: NC, AT CVS: +S1S2 Lungs: There appears to be fair air entry bilaterally without evidence of crack les, wheezing or rhonchi Abdomen: No distention, tenderness soft, obese. Lower abdominal edema has i mproved Extremities: 3+ pitting edema still persists, however, appears slightly improved Imaging: CXR 12/03: Cardiomegaly. No acute infiltrate. CT abdomen / pelvis 12/03: Umbilical hernia contains inflamed fat. The neck of the hernia does not appear to be constricted, the aperture of the hernia is approximately 1.9 cm in width. There is no bowel in the hernia. There is no free air or free fluid. There is no evidence of bowel obstruction or inflammation. The appendix is normal. Assessment and plan: Shortness of breath / Edema - likely 2/2 acute decompensated systolic heart failure (EF: 20-25%) - likely 2/2 noncompliance on medications - Reports improvement of his overall state - Physical with improvement of fluid overload noted - BNP was elevated on admission - ECHO 07/2020 shows ejection fraction of 20-25%. - Imaging noted above - Strict ins and outs / daily weights / fluid restriction - has remained negative fluid balanced - Will start Torsemide 60 PO BID; Will DC Furosemide 60 IV BID Dilated cardiomyopathy - c/w ASA Atrial fibrillation - Rate controlled A. fib - c/w rate control with Carvedilol (adjusted dose) - c/w anticoagulation with Eliquis Hx of Vtach - s/p AICD - c/w Carvedilol with hold parameters s/p Hyperkalemia - s/p Kayexalate Hyponatremia - likely 2/2 hypotonic hypervolemic etiology - Stable - c/w diuresis IDDM2 - c/w Levemir for long acting coverage - c/w ISS HTN - BP well controlled - Will resume Entresto once euvolemic (Was held for hyperkalemia) - c/w reduced dose Carvedilol (re: allow for all doses of Furosemide to be administered) CKD3 - Baseline Cr 1.6-2.0; approximately at baseline currently - Clinically appears volume overloading - c/w Diuresis Alcohol abuse - Reported his last drink was - No evidence of withdrawal - c/w CIWA protocol with Ativan - c/w Thiamine, Folate, MVI Inguinal fold with likely intertrigo - c/w Nystatin Gout - c/w Febuxostat Hernia - Scheduled for hernia repair; has pre-operative evaluation for 12/12/2020 s/p Hemoptysis - Patient reports he has seen Dr. Guerrero of ENT; has had correction of a septal problem - Has since been restarted on Eliquis by outpatient providers - Patient has been on Eliquis for 2 months so far DVT prophylaxis - c/w Eliquis Disposition: - Awaiting clinical improvement - c/w PT and OT - Anticipate DC home tomorrow VS,Fishbone, I+O VS, Fishbone, I+O Laboratory Tests 12/06/20 05:42 Vital Signs Date Time Temp Pulse Resp B/P (MAP) Pulse Ox O2 Delivery O2 Flow Rate FiO2 12/06/20 06:00 97.4 78 20 116/79 (91) 94 Room Air I&O- Last 24 Hours up to 6 AM 12/06/20 06:00 Intake Total 1557 ml Output Total 2400 ml Balance -843 ml LIBBY [place] MD Dec 06, 2020 11:09
[2020-12-06 14:00] VITALS: BP 110/80
[2020-12-06] MEDS ORDERED: TORSEMIDE 20 MG TAB PO SCH (17:00)
[2020-12-06] MEDS: LEVEMIR (INSULIN DETEMIR) 1 UNITS/0.01ML SC SCH (20:34)
[2020-12-06 22:00] VITALS: BP 111/80
[2020-12-07] MEDS: SLF 3 ML SYR IV SCH ×2 (00:24→05:20)
[2020-12-07] MEDS: guaiFENesin SYRUP 200 MG/10 ML UDC PO PRN ×2 (00:25→10:46)
[2020-12-07] MEDS: FLUTICASONE PROP 0.05% NASAL SPRAY 16 GM (FLONASE) NARES PRN (01:33)
[2020-12-07 06:00] VITALS: BP 112/80
[2020-12-07 06:34] LABS: BASO # 0.1 10^3/uL (0.0-0.2); BASO % 0.7 % (0.0-1.0); EOS # 0.2 10^3/uL (0.0-0.5); EOS % 2.4 % (0.0-3.0); HEMATOCRIT 46.2 % (42.0-52.0); HEMOGLOBIN 14.6 g/dl (13.5-17.5); LYMPH % 13.6 % (24.0-44.0); MEAN CORPUSCULAR HGB CONC 31.6 g/dl (32.0-36.5); MEAN CORPUSCULAR VOLUME 82.2 fl (80.0-96.0); MONO # 0.9 10^3/uL (0.0-0.8); NEUTROPHILS % 70.7 % (36.0-66.0); PLATELET COUNT, AUTOMATED 162 10^3/uL (150-450); RED BLOOD COUNT 5.62 10^6/uL (4.30-6.10); WHITE BLOOD COUNT 7.1 10^3/uL (4.0-10.0)
[2020-12-07 06:51] LABS: ALBUMIN 3.4 GM/DL (3.2-5.2); BILIRUBIN,TOTAL 1.4 MG/DL (0.2-1.0); CALCIUM LEVEL 8.7 MG/DL (8.8-10.2); CREATININE FOR GFR 1.88 MG/DL (0.70-1.30); GLOMERULAR FILTRATION RATE 45.4 (>42); MAGNESIUM LEVEL 2.2 MG/DL (1.8-2.4); POTASSIUM SERUM 4.4 MEQ/L (3.5-5.1); TOTAL PROTEIN 7.1 GM/DL (6.4-8.2)
[2020-12-07] MEDS: DOCUSATE SODIUM 100MG CAPSULE PO SCH (08:21)
[2020-12-07] MEDS: MULTIVITAMINS/MINERALS THERAP 1 TAB PO SCH (08:21)
[2020-12-07] MEDS: VITAMIN D 1,000 INTERNATIONAL UNITS TABLET PO SCH (08:21)
[2020-12-07] MEDS: ASPIRIN 81 MG ENTERIC TAB PO SCH (08:22)
[2020-12-07] MEDS: THIAMINE 100 MG TAB PO SCH (08:22)
[2020-12-07] MEDS: FOLIC ACID 1 MG TAB PO SCH (08:22)
[2020-12-07 08:25] VITALS: BP 115/77
[2020-12-07] MEDS: CARVedilol 6.25 MG TAB PO SCH (08:25)
[2020-12-07] MEDS: FEBUXOSTAT 40 MG TABLET (ULORIC) PO SCH (08:26)
[2020-12-07] MEDS: APIXABAN 5 MG TAB (ELIQUIS) PO SCH (08:26)
[2020-12-07] MEDS: NYSTATIN 100,000 UNITS/GM TOPICAL PWD 15 GM TOP SCH (08:26)
[2020-12-07] MEDS: HumaLOG INSULIN (NovoLOG) PER UNIT SC SCH ×2 (08:27→11:49)
[2020-12-07] MEDS ORDERED: TORSEMIDE 20 MG TAB PO SCH (09:00)
[2020-12-07] MEDS ORDERED: CARV6.25 PO (09:24)
[2020-12-07] MEDS ORDERED: ELIQ5TAB PO (09:24)
--- NOTE | 2020-12-07 10:16 | DS.PDOC ---
Discharge Summary General Date of Admission Dec 03, 2020 at 13:45 Date of Discharge 12/07/2020 Discharge Summary PROCEDURES PERFORMED DURING STAY: [None]. ADMITTING DIAGNOSES / DISCHARGE DIAGNOSES: Shortness of breath / Edema - likely 2/2 acute decompensated systolic heart failure (EF: 20-25%) - likely 2/2 noncompliance on medications Dilated cardiomyopathy Atrial fibrillation Hx of Vtach s/p Hyperkalemia Hyponatremia - likely 2/2 hypotonic hypervolemic etiology IDDM2 HTN CKD3 Alcohol abuse Inguinal fold with likely intertrigo Gout Hernia s/p Hemoptysis DVT prophylaxis COMPLICATIONS/CHIEF COMPLAINT: Shortness of breath HISTORY OF PRESENT ILLNESS: Patient is a 75-year-old male with a PMHx of Systolic CHF (EF: 20-25%), Hx of Ventricular tach s/p AICD, A. fib, COPD, IDDM2, who presented to the ER with weakness / shortness of breath and leg swelling. Patient has reported he has been noncompliant with his diuretic therapy. In the emergency room, patient was found to be in decompensated heart failure. Patient was admitted to the hospitalist service for further evaluation and treatment. Patient was seen and examined at the bedside. Patient reports that his breathing is doing better sitting up in chair, appears comfortable. Denies any chest pain, palpitations, cough or shortness of breath. Has not experience any nausea, vomiting, abdominal pain. Reports that his lower extremity swelling has been doing better. Patient did work with physical therapy yesterday and was advised that he could go home with services when medically cleared. HOSPITAL COURSE: Shortness of breath / Edema - likely 2/2 acute decompensated systolic heart failure (EF: 20-25%) - likely 2/2 noncompliance on medications - Reports his breathing is doing better, reports improvement of LE edema - LE edema improved - BNP was elevated on admission - ECHO 07/2020 shows ejection fraction of 20-25%. - Imaging noted above - Strict ins and outs / daily weights / fluid restriction; negative balance of ~3000cc - c/w Torsemide; will resume home regimen on discharge - Will have outpatient follow up with PCP, Nephrology and Cardiology within 7 days Dilated cardiomyopathy - c/w ASA Atrial fibrillation - Rate controlled A. fib - c/w rate control with Carvedilol (adjusted dose) - c/w anticoagulation with Eliquis Hx of Vtach - s/p AICD - c/w Carvedilol with hold parameters s/p Hyperkalemia - s/p Kayexalate Hyponatremia - likely 2/2 hypotonic hypervolemic etiology - Stable - c/w diuresis IDDM2 - c/w Levemir for long acting coverage - c/w ISS HTN - BP well controlled - Will resume Entresto on discharge (Was held for hyperkalemia) - c/w reduced dose Carvedilol CKD3 - Baseline Cr 1.6-2.0; - Remains at baseline - c/w Diuresis Alcohol abuse - Reported his last drink was - No evidence of withdrawal - Will DC CIWA protocol with Ativan - Will DC Thiamine, Folate, MVI Inguinal fold with likely intertrigo - c/w Nystatin Gout - c/w Febuxostat Hernia - Scheduled for hernia repair; has pre-operative evaluation for 12/20/2020 s/p Hemoptysis - Patient reports he has seen Dr. Guerrero of ENT; has had correction of a septal problem - Has since been restarted on Eliquis by outpatient providers - Patient has been on Eliquis for 2 months so far DVT prophylaxis - c/w Eliquis DISCHARGE MEDICATIONS: Please see below. ALLERGIES: Please see below. PHYSICAL EXAMINATION ON DISCHARGE: Vitals (See below) General: Sitting in chair comfortably, no acute distress, AAOx3 HEENT: NC, AT CVS: +S1S2 Lungs: No wheezing / crackles / rhonchi, fair bilaterally Abdomen: Without distention, soft, non-tender, lower abdominal edema improving Extremities: 2+ pitting edema - improved LABORATORY DATA: Please see below. IMAGING: CXR 12/03: Cardiomegaly. No acute infiltrate. CT abdomen / pelvis 12/03: Umbilical hernia contains inflamed fat. The neck of the hernia does not appear to be constricted, the aperture of the hernia is approximately 1.9 cm in width. There is no bowel in the hernia. There is no free air or free fluid. There is no evidence of bowel obstruction or inflammation. The appendix is normal. ACTIVITY: [As tolerated]. DISCHARGE PLAN: Follow up with PCP, Nephrology and Cardiology within 7 days Remain compliant with treatment plan and medications Return to the ER if you experience any problems DISPOSITION: Home with services DISCHARGE CONDITION: [Stable]. TIME SPENT ON DISCHARGE: 35 minutes Vital Signs/I&Os Vital Signs Date Time Temp Pulse Resp B/P (MAP) Pulse Ox O2 Delivery O2 Flow Rate FiO2 12/07/20 08:25 96 115/77 12/07/20 06:00 98.3 18 98 Room Air I&O- Last 24 Hours up to 6 AM 12/07/20 06:00 Intake Total 1810 ml Output Total 2375 ml Balance -565 ml Laboratory Data Labs 24H Laboratory Tests 2 12/06/20 11:59: Bedside Glucose (Misc Panel) 171H 12/06/20 16:39: Bedside Glucose (Misc Panel) 135H 12/06/20 20:01: Bedside Glucose (Misc Panel) 161H 12/07/20 02:19: Bedside Glucose (Misc Panel) 178H 12/07/20 05:57: Immature Granulocyte % (Auto) 0.6, Neutrophils (%) (Auto) 70.7H, Lymphocytes (%) (Auto) 13.6L, Monocytes (%) (Auto) 12.0H, Eosinophils (%) (Auto) 2.4, Basophils (%) (Auto) 0.7, Neutrophils # (Auto) 5.0, Lymphocytes # (Auto) 1.0L, Monocytes # (Auto) 0.9H, Eosinophils # (Auto) 0.2, Basophils # (Auto) 0.1, Nucleated Red Blood Cells % (auto) 0.0, Anion Gap 7L, Glomerular Filtration Rate 45.4, Calcium Level 8.7L, Magnesium Level 2.2, Total Bilirubin 1.4H, Aspartate Amino Transf (AST/SGOT) 12, Alanine Aminotransferase (ALT/SGPT) 26, Alkaline Phosphatase 66, Total Protein 7.1, Albumin 3.4, Albumin/Globulin Ratio 0.9 CBC/BMP Laboratory Tests 12/07/20 05:57 FSBS Laboratory Tests Test 12/06/20 11:59 12/06/20 16:39 12/06/20 20:01 12/07/20 02:19 Range/Units Bedside Glucose (Misc Panel) 171 135 161 178 83-110 MG/DL Microbiology Microbiology 12/03/20 Urine Culture - Final, Complete Escherichia Coli 12/03/20 Blood Culture - Preliminary, Resulted No Growth after 72 hours. All specime... 12/03/20 Respiratory Virus Panel (PCR) (MIKI) - Final, Complete 12/03/20 Blood Culture - Preliminary, Resulted No Growth after 72 hours. All specime... Discharge Medications Scheduled Apixaban (Eliquis) 5 Mg Tablet, 5 MG PO BID Aspirin (Aspirin EC) 81 Mg Tab, 81 MG PO QHS, (Reported) Carvedilol (Carvedilol) 6.25 Mg Tablet, 6.25 MG PO BID Cholecalciferol (Vitamin D3) (Vitamin D3) 1,000 Unit Tablet, 1,000 UNITS PO DAILY, (Reported) Febuxostat (Febuxostat) 80 Mg Tablet, 80 MG PO DAILY, (Reported) Insulin Glargine,Hum.rec.anlog (Toujeo Solostar) 300 Unit/Ml Inj, 10 UNITS SC QHS, (Reported) Sacubitril/Valsartan (Entresto 24 mg-26 mg Tablet) 1 Each Tablet, 1 TAB PO BID, (Reported) Sitagliptin (Januvia) 50 Mg Tab, 50 MG PO DAILY, (Reported) Torsemide (Torsemide) 100 Mg Tablet, 100 MG PO DAILY, (Reported) Torsemide (Torsemide) 20 Mg Tablet, 20 MG PO QHS, (Reported) Scheduled PRN Fluticasone Propionate (Fluticasone Propionate) 50 Mcg/Act Spr, 1 SPRAY NARES BID PRN for NASAL CONGESTION, (Reported) Allergies Coded Allergies: No Known Allergies (Unverified , 11/09/19) LIBBY [place] MD Dec 07, 2020 10:16
== END 2020-12-07 16:21 | disposition home health service (06) | DRG 291 ==
LOC: M ED 07:28 → M PCU 13:45 → M MSPAV 12-05 10:14
PROVIDERS: ADMIT Internal Medicine; ATTEND Internal Medicine
DX: I13.0 Hypertensive heart and chronic kidney disease with heart failure and stage 1 through stage 4 chronic kidney disease, or unspecified chronic kidney disease (principal); I50.23 Acute on chronic systolic (congestive) heart failure; E87.1 Hypo-osmolality and hyponatremia; I47.2 Ventricular tachycardia; N25.81 Secondary hyperparathyroidism of renal origin; N18.30 Chronic kidney disease, stage 3 unspecified; I48.91 Unspecified atrial fibrillation; E87.5 Hyperkalemia; E11.22 Type 2 diabetes mellitus with diabetic chronic kidney disease; E80.6 Other disorders of bilirubin metabolism; B35.6 Tinea cruris; I42.0 Dilated cardiomyopathy; F10.10 Alcohol abuse, uncomplicated; Z91.14 Patient's other noncompliance with medication regimen; M10.9 Gout, unspecified; L30.4 Erythema intertrigo; J44.9 Chronic obstructive pulmonary disease, unspecified; Z79.01 Long term (current) use of anticoagulants; Z79.82 Long term (current) use of aspirin; Z79.899 Other long term (current) drug therapy; E66.9 Obesity, unspecified; Z96.653 Presence of artificial knee joint, bilateral; K76.0 Fatty (change of) liver, not elsewhere classified

== ENCOUNTER 2020-12-12 16:32 | Inpatient (IN) | payer MEDICARE, MEDICAID ==
[~2020-12-12] VITALS: Ht 188 cm; Wt 138.4 kg
[~2020-12-12 16:32] MED LIST changes: +TORS20TA2 PO
--- NOTE | 2020-12-12 17:37 | REP ---
INDICATION: DYSPNEA/COUGH COMPARISON: 12/03/2020 TECHNIQUE: Portable AP view of the chest FINDINGS: Mediastinum and cardiac silhouette are stable with pacemaker again noted. Lung caraballo demonstrate chronic changes with left lower lobe infiltrate suggesting acute pneumonia and possible small layering effusion. No pneumothorax. Skeletal structures stable. IMPRESSION: Suspected left lower lobe airspace disease with possible small layering effusion. <Electronically signed by Zachary Saxena > 12/12/20 [id number]
[2020-12-12 18:25] LABS: BASO # 0.1 10^3/uL (0.0-0.2); BASO % 1.1 % (0.0-1.0); EOS # 0.1 10^3/uL (0.0-0.5); EOS % 2.3 % (0.0-3.0); HEMATOCRIT 45.4 % (42.0-52.0); HEMOGLOBIN 14.1 g/dl (13.5-17.5); LYMPH # 1.1 10^3/uL (1.5-5.0); MEAN CORPUSCULAR HEMOGLOBIN 26.5 pg (27.0-33.0); MEAN CORPUSCULAR HGB CONC 31.1 g/dl (32.0-36.5); MEAN CORPUSCULAR VOLUME 85.2 fl (80.0-96.0); MONO # 0.6 10^3/uL (0.0-0.8); MONO % 11.1 % (2.0-8.0); NEUTROPHILS # 3.7 10^3/uL (1.5-8.5); NEUTROPHILS % 66.1 % (36.0-66.0); PLATELET COUNT, AUTOMATED 161 10^3/uL (150-450); RED BLOOD COUNT 5.33 10^6/uL (4.30-6.10); WHITE BLOOD COUNT 5.6 10^3/uL (4.0-10.0)
--- NOTE | 2020-12-12 18:37 | REPVR ---
PROCEDURE INFORMATION: Exam: US Duplex Lower Extremity Veins, Bilateral Exam date and time: 12/12/2020 5:54 PM Age: 75 years old Clinical indication: Swelling (edema) of limb; Lower extremity, bilateral TECHNIQUE: Imaging protocol: Real-time duplex ultrasound of the extremities with 2-D mcknight scale, color Doppler flow and spectral waveform analysis with image documentation. Complete exam focused on the bilateral lower extremity veins. COMPARISON: No relevant prior studies available. FINDINGS: Right deep veins: The common femoral, proximal and mid femoral, and popliteal veins are patent without thrombus. Normal compressibility and/or augmentation response. Compression imaging of the distal right femoral vein is suboptimal, although flow is demonstrated within this vessel. Right superficial veins: Limited evaluation. Left deep veins: The common femoral, proximal and mid femoral, and popliteal veins are patent without thrombus. Normal compressibility and/or augmentation response. Compression imaging of the distal left femoral vein is suboptimal, although flow is demonstrated within this vessel. Left superficial veins: Limited evaluation. Soft tissues: Soft tissue edematous changes are identified involving the bilateral lower extremities. IMPRESSION: 1. No evidence of occlusive deep venous thrombosis from the common femoral to the popliteal veins bilaterally. Evaluation of the distal femoral veins is limited bilaterally. 2. Soft tissue edematous changes are identified involving the bilateral lower extremities. Electronically signed by: Henok Gilmore On 12/12/2020 18:37:59 PM
[2020-12-12 18:54] LABS: ALBUMIN 3.5 GM/DL (3.2-5.2); BILIRUBIN,DIRECT 0.4 MG/DL (0.0-0.2); BILIRUBIN,TOTAL 0.7 MG/DL (0.2-1.0); CALCIUM LEVEL 9.1 MG/DL (8.8-10.2); CK-MB VALUE MASS 2.1 NG/ML (<3.6); CREATININE FOR GFR 1.81 MG/DL (0.70-1.30); GLOMERULAR FILTRATION RATE 47.4 (>42); POTASSIUM SERUM 4.6 MEQ/L (3.5-5.1); THYROID STIMULATING HORMONE 5.24 uIU/ML (0.358-3.740); TOTAL PROTEIN 7.1 GM/DL (6.4-8.2); TROPONIN I 0.02 NG/ML (< 0.10)
[2020-12-12] MEDS ORDERED: ELIQ5TAB PO (19:29)
[2020-12-12] MEDS ORDERED: CARV6.25 PO (19:29)
[2020-12-12] MEDS ORDERED: FUROSEMIDE 100MG/10ML VIAL (J1940) IV ONE (20:55)
[2020-12-12] MEDS ORDERED: FUROSEMIDE injection 250 MG in D5W 225 ML IV SCH (21:10)
[2020-12-12 21:28] LABS: RSV AMPLIFICATION NEGATIVE (NEGATIVE)
[2020-12-12] MEDS: CARVedilol 6.25 MG TAB PO SCH (22:22)
[2020-12-12] MEDS: APIXABAN 5 MG TAB (ELIQUIS) PO SCH (22:22)
[2020-12-12] MEDS: ASPIRIN 81MG ENTERIC TABLET PO SCH (22:22)
[2020-12-12 22:35] VITALS: BP 132/93
[2020-12-12 23:13] LABS: CK-MB VALUE MASS 1.7 NG/ML (<3.6); MB/CK RELATIVE INDEX 1.77 (< OR =4); TROPONIN I 0.02 NG/ML (< 0.10)
[2020-12-12] MEDS: ENTRESTO 24-26MG TABLET (SACUBITRIL/VALSARTAN) PO SCH (23:27)
--- NOTE | 2020-12-12 23:55 | HPEPDOC ---
[facility] Medical History & Physical Date of Admission Dec 12, 2020 Date of Service: Dec 12, 2020 History and Physical CHIEF COMPLAINT: Shortness of breath, lower extremity edema, weight gain over the past 2 days since hospital discharge December 07 HISTORY OF PRESENT ILLNESS: 75-year-old -[place] male, history of systolic and diastolic heart failure, ejection fraction 20-25% with AICD, chronic kidney disease stage III, admitted to [facility] December 03 to December 07 with congestive heart failure presents back to the emergency room with worsening shortness of breath initially with exertion and eventually it even at rest , with lower extremity edema, and 10 -15 pound weight gain. He admits to dietary indiscretion, eating "frozen pot pies" , which he microwaves since being home. Patient adheres to a fluid restriction of 1.7 L at home, was seen by physical therapy today when he was noted to be short of breath with worsening edema encouraging him to come to the ER for evaluation. Patient denies chest pain, pressure, tightness, lightheadedness, dizziness, fever, chills. He has had a slight cough, dry without nausea, vomiting, abdominal pain, diaphoresis, or feeling of impending doom. Patient otherwise denies any dysuria, urgency, frequency, flank pain. He's had increasing weakness, unable to ambulate without a walker and complains of cough productive of scant white sputum, paroxysmal nocturnal dyspnea, two-pillow orthopnea. He denies any palpitations, any changes in his medications, or his AICD firing. . He denies any bright red blood per rectum, melena, black tarry stools, coffee-ground emesis or hematemesis. He denies any diarrhea or decreased oral intake. In the emergency room, patient was found to be fluid overloaded with 3+ pitting edema bilateral lower extremities, with chest x-ray showing left lower lobe infiltrate and layering effusion. Patient is being admitted for acute on chronic systolic and diastolic congestive heart failure exacerbation secondary to dietary indiscretion as well as left lower lobe healthcare associated pneumonia. PAST MEDICAL HISTORY: chronic kidney disease stage III, type 2 diabetes, insulin-dependent systolic, diastolic CHF, ejection fraction 2024% with AICD,Obesity, BMI 40.0, fatty liver, dilated cardiomyopathy. Electrolyte imbalance with hypomagnesemia, hypokalemia, hyperparathyroidism, right lower quadrant hernia, reducible PAST SURGICAL HISTORY: AICD 2015, left total knee replacement 1999 for right total knee 1999 for left inguinal hernia 1996 SOCIAL HISTORY: History of alcohol abuse. Plan of bourbon every day. Last drink was November, lives alone at home. Denies recreational drug use. Retired . CODE STATUS full code FAMILY HISTORY: Noncontributory Due to patient's advanced age ALLERGIES: Please see below. REVIEW OF SYSTEMS: 10 point review of systems negative assessment positive findings in HPI HOME MEDICATIONS: Please see below. PHYSICAL EXAMINATION: VITAL SIGNS: See below GENERAL APPEARANCE: Awake, alert, oriented 3, able to speak in full sentences. No use of respiratory accessory muscles HEENT: Moist mucous membranes. Positive jugular venous distention, no thyromegaly, cervical lymphadenopathy. Pupils equal, round, reactive to light accommodation. Extraocular muscles are intact Neck is supple, No stridor, no carotid bruits CARDIOVASCULAR: S1, S2, sinus rhythm LUNGS: Diminished the left base with crackles. ABDOMEN: Positive bowel sounds 4 quadrants, soft, nontender, nondistended. No rebound or guarding. Reducible right lower quadrant hernia EXTREMITIES: 3+ edema to the sacrum. Venous ulcers noted on left anterior leos measuring 1-1-1/2 cm. LABORATORY DATA: See below. IMAGING: DYSPNEA/COUGH COMPARISON: 12/03/2020 TECHNIQUE: Portable AP view of the chest FINDINGS: Mediastinum and cardiac silhouette are stable with pacemaker again noted. Lung caraballo demonstrate chronic changes with left lower lobe infiltrate suggesting acute pneumonia and possible small layering effusion. No pneumothorax. Skeletal structures stable. IMPRESSION: Suspected left lower lobe airspace disease with possible small layering effusion. MICROBIOLOGY: Please see below. ASSESSMENT/PLAN: 75-year-old -[place] male, history of systolic and diastolic heart failure, ejection fraction 20-25% with AICD, chronic kidney disease stage III, admitted to [facility] December 03 to December 07 with congestive heart failure presents back to the emergency room with worsening shortness of breath initially with exertion and eventually it even at rest , with lower extremity edema, and 10 -15 pound weight gain. He admits to dietary indiscretion, eating "frozen pot pies" , which he microwaves since being home. Patient adheres to a fluid restriction of 1.7 L at home, was seen by physical therapy today when he was noted to be short of breath with worsening edema encouraging him to come to the ER for evaluation. Patient denies chest pain, pressure, tightness, lightheadedness, dizziness, fever, chills. He has had a slight cough, dry without nausea, vomiting, abdominal pain, diaphoresis, or feeling of impending doom. Patient otherwise denies any dysuria, urgency, frequency, flank pain. He's had increasing weakness, unable to ambulate without a walker and complains of cough productive of scant white sputum, paroxysmal nocturnal dyspnea, two-pillow orthopnea. He denies any palpitations, any changes in his medications, or his AICD firing. In the emergency room, patient was found to be fluid overloaded with 3+ pitting edema bilateral lower extremities, with chest x-ray showing left lower lobe infiltrate and layering effusion. Patient is being admitted for acute on chronic systolic and diastolic congestive heart failure exacerbation secondary to dietary indiscretion as well as left lower lobe healthcare associated pneumonia. Healthcare associated pneumonia in the left lower lobe -Patient was recently admitted and discharged 12/07/2020 for congestive heart failure. We will check an MRSA screen, but will start the patient on Zosyn, renal dosing for 7 days. Check 2 sets of blood cultures, sputum culture, urine Legionella and urine streptococcal antigen. Acute on chronic systolic and diastolic congestive heart failure exacerbation / dilated cardiomyopathy with history of alcohol abuse -secondary to dietary indiscretion with patient admitting to eating frozen pot pie dinners since hospital discharge. Patient will be admitted to PCU telemetry unit. Strict I's and O's, daily weights and fluid restriction. Monitor electrolytes and cycle cardiac markers. Continued telemetry monitoring. Patient denies any firing of his AICD. We'll try to optimize patient's electrolytes potassium greater than 4 and magnesium greater than 2 . -Patient will be placed on Lasix drip for better diuresis because IV Lasix boluses may cause hypotension , especially when the patient's systolic blood pressure ranges between 100 to 115mmHg at the bedside already, -Holding parameters are placed on the patient's beta jerel and entresto to prevent further hypotension chronic kidney disease stage III -Currently at baseline creatinine. Monitor I/o, daily weights. May consult nephrology if worsening renal dysfunction and fails to diuresis on Lasix iv gtt. -Secondary to diabetes and hypertensive heart disease type 2 diabetes, insulin-dependent -On consistent carbohydrate diet, sliding scale. Hypoglycemic protocol. Titrate insulin for better glycemic control. Check A1c in the morning. Obesity, BMI 40 / fatty liver -Complicating care Secondary hyperparathyroidism -Due to chronic kidney disease right lower quadrant hernia, reducible -Patient was due to have hernia repair with Dr. Collins, but this has been deferred due to recent admission for congestive heart failure History of alcohol abuse -Quit alcohol CODE STATUS: Full code Diet: Renal, consistent carb, 2 g sodium DVT prophylaxis: Heparin subcutaneous Vital Signs Vital Signs Date Time Temp Pulse Resp B/P (MAP) Pulse Ox O2 Delivery O2 Flow Rate FiO2 12/12/20 16:51 97.1 81 19 119/77 (91) 98 Laboratory Data Labs 24H Laboratory Tests 2 12/12/20 17:27: Immature Granulocyte % (Auto) 0.4, Neutrophils (%) (Auto) 66.1H, Lymphocytes (%) (Auto) 19.0L, Monocytes (%) (Auto) 11.1H, Eosinophils (%) (Auto) 2.3, Basophils (%) (Auto) 1.1H, Neutrophils # (Auto) 3.7, Lymphocytes # (Auto) 1.1L, Monocytes # (Auto) 0.6, Eosinophils # (Auto) 0.1, Basophils # (Auto) 0.1, Nucleated Red Blood Cells % (auto) 0.0, Anion Gap 4L, Glomerular Filtration Rate 47.4, Calcium Level 9.1, Total Bilirubin 0.7, Direct Bilirubin 0.4H, Aspartate Amino Transf (AST/SGOT) 5L, Alanine Aminotransferase (ALT/SGPT) 28, Alkaline Phosphatase 73, Total Creatine Kinase 105, Creatine Kinase MB 2.1, Creatine Kinase MB Relative Index 2.00, Troponin I 0.02, AE-Lod-E-Type Natriuretic Peptide 3675H, Total Protein 7.1, Albumin 3.5, Albumin/Globulin Ratio 1.0, Thyroid Stimulating Hormone (TSH) 5.240H 12/12/20 19:28: Lactic Acid Level 1.0 12/12/20 20:36: Coronavirus (COVID-19)(PCR) NEGATIVE, Influenza Type A (RT-PCR) NEGATIVE, Influenza Type B (RT-PCR) NEGATIVE, Respiratory Syncytial Virus (PCR) NEGATIVE CBC/BMP Laboratory Tests 12/12/20 17:27 Microbiology Microbiology 12/12/20 Blood Culture, Received Pending 12/12/20 Blood Culture, Received Pending Home Medications Scheduled Apixaban (Eliquis) 5 Mg Tablet, 5 MG PO BID Aspirin (Aspirin EC) 81 Mg Tab, 81 MG PO QHS Carvedilol (Carvedilol) 6.25 Mg Tablet, 6.25 MG PO BID Cholecalciferol (Vitamin D3) (Vitamin D3) 1,000 Unit Tablet, 1,000 UNITS PO DAILY Febuxostat (Febuxostat) 80 Mg Tablet, 80 MG PO DAILY Insulin Glargine,Hum.rec.anlog (Toujeo Solostar) 300 Unit/Ml Inj, 10 UNITS SC QHS Sacubitril/Valsartan (Entresto 24 mg-26 mg Tablet) 1 Each Tablet, 1 TAB PO BID Sitagliptin (Januvia) 50 Mg Tab, 50 MG PO DAILY Torsemide (Torsemide) 100 Mg Tablet, 100 MG PO DAILY Torsemide (Torsemide) 20 Mg Tablet, 20 MG PO QHS Scheduled PRN Fluticasone Propionate (Fluticasone Propionate) 50 Mcg/Act Spr, 1 SPRAY NARES BID PRN for NASAL CONGESTION Allergies Coded Allergies: No Known Allergies (Unverified , 11/09/19) A-FIB/CHADSVASC A-FIB History Current/History of A-Fib/PAF?: No Current PO Anticoag Therapy: No Age/Risk Factor Scoring CHADSVASC: CHADSVASC Response (Comments) Value Age Risk Factor Age >/= 75 years old 2 Gender Risk Factor Male 0 Hx of CHF Yes 1 Hx of HTN Yes 1 Hx of Stroke/TIA/or VTE No 0 Hx of Diabetes Yes 1 Hx of Vascular Disease No 0 Total 5 Treatment Treatment ordered: NONE CORINNE GAMA MD Dec 12, 2020 23:18
[2020-12-13] VITALS (8 sets, daily range): BP systolic 90–115; BP diastolic 56–68
[2020-12-13] MEDS ORDERED: EPINEPHrine INJ 1 MG/ML 1ML AMP IM PRN
[2020-12-13] MEDS ORDERED: diphenhydrAMINE 50MG/ML VIAL (J1200) IM PRN
[2020-12-13] MEDS: PIPERACILLIN/TAZOBACTAM SOD 3.375 GM in D5W MINI-BAG PLUS 50 ML IV SCH ×2 (00:57→06:20)
[2020-12-13 05:08] LABS: BASO # 0.1 10^3/uL (0.0-0.2); BASO % 1.1 % (0.0-1.0); EOS # 0.1 10^3/uL (0.0-0.5); EOS % 2.6 % (0.0-3.0); HEMATOCRIT 43.2 % (42.0-52.0); HEMOGLOBIN 13.8 g/dl (13.5-17.5); LYMPH % 17.7 % (24.0-44.0); MEAN CORPUSCULAR HEMOGLOBIN 26.7 pg (27.0-33.0); MEAN CORPUSCULAR HGB CONC 31.9 g/dl (32.0-36.5); MEAN CORPUSCULAR VOLUME 83.6 fl (80.0-96.0); MONO # 0.7 10^3/uL (0.0-0.8); MONO % 11.9 % (2.0-8.0); NEUTROPHILS # 3.6 10^3/uL (1.5-8.5); NEUTROPHILS % 66.3 % (36.0-66.0); PLATELET COUNT, AUTOMATED 147 10^3/uL (150-450); RED BLOOD COUNT 5.17 10^6/uL (4.30-6.10); WHITE BLOOD COUNT 5.5 10^3/uL (4.0-10.0)
[2020-12-13 05:37] LABS: CHOLESTEROL RISK RATIO 2.966 (<5)
[2020-12-13 05:38] LABS: BLOOD UREA NITROGEN 45 MG/DL (7-18); CALCIUM LEVEL 9.2 MG/DL (8.8-10.2); CARBON DIOXIDE LEVEL 34 MEQ/L (21-32); CHLORIDE LEVEL 101 MEQ/L (98-107); CK-MB VALUE MASS 1.8 NG/ML (<3.6); CPK CREATINE PHOSPHOKINASE 84 U/L (39-308); CREATININE FOR GFR 1.65 MG/DL (0.70-1.30); GLOMERULAR FILTRATION RATE 52.7 (>42); GLUCOSE, FASTING 193 MG/DL (70-100); MAGNESIUM LEVEL 2.3 MG/DL (1.8-2.4); MB/CK RELATIVE INDEX 2.14 (< OR =4); POTASSIUM SERUM 4.1 MEQ/L (3.5-5.1); SODIUM LEVEL 136 MEQ/L (136-145); TROPONIN I < 0.02 NG/ML (< 0.10)
[2020-12-13 05:41] LABS: HEMOGLOBIN A1c 8.6 %
--- NOTE | 2020-12-13 07:07 | ECGEPIP ---
[facility] - ED Test Date: 2020-12-12 Pat Name: JENNI KELLEY Department: Room: - Gender: Male Manager Commission: AMBER : [id number] Requested By: Racheal Adler Order Number: [id number] Reading MD: Yrn Avila Measurements Intervals [place] Rate: 84 P: MA: QRS: 136 QRSD: 96 T: -28 QT: 404 QTc: 477 Interpretive Statements ARM LEAD REVERSAL, UNACCEPTABLE TRACING QUALITY FOR COMPLETE INTERPRETATION Atrial flutter with variable AV block Low voltage QRS Cannot rule out Inferior infarct , age undetermined Possible Anterolateral infarct , age undetermined Electronically Signed on 12-13-2020 7:07:07 EST by Yrn Avila
[2020-12-13] MEDS: CARVedilol 6.25 MG TAB PO SCH ×2 (09:25→20:57)
[2020-12-13] MEDS: FUROSEMIDE 100MG/10ML VIAL (J1940) IV SCH ×2 (09:25→15:29)
[2020-12-13] MEDS: SITagliptin 50 MG TAB (JANUVIA) PO SCH (09:25)
[2020-12-13] MEDS: ENTRESTO 24-26MG TABLET (SACUBITRIL/VALSARTAN) PO SCH ×2 (09:25→20:57)
[2020-12-13] MEDS: VITAMIN D 1,000 INTERNATIONAL UNITS TABLET PO SCH (09:25)
[2020-12-13] MEDS: APIXABAN 5 MG TAB (ELIQUIS) PO SCH ×2 (09:25→21:08)
--- NOTE | 2020-12-13 09:36 | IPNPDOC ---
Text Note Date of Service The patient was seen on 12/13/20. NOTE Subjective: No acute events overnight. Patient states that he is feeling much better. Reports that his SOB is better today compared to yesterday. States that he still has an occasional productive cough with scant white sputum. Patient states that he takes his prescribed medications at home daily. Reports that his weakness prior to admission was due to increased lower extremity swelling making it difficult for him to get in and out of his mobility scooter. Denies any fever, chills, chest pain, headache, or tremors. Pt states that he may be moving in with his daughter in [place] soon. He states that he was scheduled for hernia repair on 12/30/20 but is unsure if he will be medically cleared for the procedure due to recent admission. Objective: VITALS: See below. GENERAL: Patient is laying down in bed, comfortably at rest. No acute distress. HEENT: NC/AT. EOMI. Conjunctiva and lids normal. Normal ROM of neck. CARDIOVASCULAR: Regular rate and rhythm. Normal S1 and S2. No murmurs, rubs, or gallops. PULMONARY: Slightly diminished breath sounds in L lower lobe. Good air movement. No wheezes, rales, or rhonchi appreciated. ABDOMEN: Normoactive bowel sounds in all four quadrants. Abdomen soft and non tender to palpation. No distention. Reducible RLQ hernia. EXTREMITIES: 3+ pitting edema to thighs. Assessment/Plan: Patient is a 75 year old -[place] male with history of heart failure with reduced ejection fraction (EF 20-25%) with AICD, dilated cardiomyopathy, chronic kidney disease stage III, and IDDMT2 who presented to the ED due to worsening SOB on exertion and eventually even at rest, BLE edema, and 10-15 lb weight gain. He admits to dietary indiscretion, eating "frozen pot pies", which he microwaves since being home. Patient adheres to a fluid restriction of 1.7 L at home, was seen by PT on the day of admission and was noted to be SOB with worsening edema and was encouraged to go to the ED for evaluation. He admits increasing weakness (unable to ambulate without a walker), productive cough with scant white sputum, paroxysmal nocturnal dyspnea, two-pillow orthopnea. In the ED, pt was found to be fluid overloaded with 3+ pitting edema to BLE. CXR showed L lower lobe infiltrate and layering effusion. Patient admitted for acute on chronic CHF 2/2 dietary indiscretion and L lower lobe healthcare associated pneumonia. #Acute on chronic CHF with reduced ejection fraction (EF 20-25%) with AICD - CHF exacerbation most likely 2/2 dietary indiscretion as patient reports eating frozen dinners but keeps to his 1.7 L fluid restriction and takes his medications daily. - Will keep patient on telemetry monitoring. - Strict I's and O's and daily weights to monitor patients volume status. - Keep patient on 2 L fluid restriction and 2 g sodium diet. - Will continue home med, Entresto 1 tab PO BID. - Lasix 80 mg IV Q8H. #L sided pleural effusion - CXR on 12/12/20 reported suspected left lower lobe airspace disease with possible small layering effusion. - Blood cultures, MRSA screen, sputum cultures, urine Legionella and urine streptococcal antigen ordered. - PCT pending - Patient has been afebrile since admission, WBC has been WNL, and patient complains of only an occasional cough. CXR showed small pleural effusion. Suspicion for pneumonia is low so Zosyn has been discontinued. #CKD Stage III - Patient's creatinine is currently at baseline. - Will monitor renal function. - Continue with diuresis in light of fluid overload #IDDM2 - Will keep patient on a consistent carb diet - Sliding scale insulin with hypoglycemic protocol. - A1C was 8.6 on 12/13/20. #Hypertension - Entresto on hold - Carvedilol 6.25 mg PO BID with holding parameters for SBP <100. #Obesity - Complicating care, BMI 40. #RLQ hernia, reducible - Pt was schedule to have hernia repair with Dr. Collins but this has been deferred due to recent admission. #History of alcohol abuse - Pt reports that he quit EtOH abuse. - Will monitor patient for any signs/sx of DT's. DVT Prophylaxis: Eliquis 5 mg PO BID. Disposition: Will continue diuresis, 2 g sodium restriction, and 2 L fluid restriction. Will monitor patients fluid status. Will likely need placement, however patient reports that he is planning on moving in with his daughter in [place]. VS,Fishbone, I+O VS, Fishbone, I+O Laboratory Tests 12/12/20 17:27 12/13/20 04:52 Vital Signs Date Time Temp Pulse Resp B/P (MAP) Pulse Ox O2 Delivery O2 Flow Rate FiO2 12/13/20 04:00 96.4 70 18 110/60 (77) 96 Room Air I&O- Last 24 Hours up to 6 AM 12/13/20 06:00 Intake Total 290 ml Output Total 2000 ml Balance -1710 ml GME ATTESTATION GME ATTESTATION My faculty preceptor for this patient encounter was physically present during the encounter and was fully available. All aspects of the patient interview, examination, medical decision making process, and medical care plan development were reviewed and approved by the faculty preceptor. The faculty preceptor is aware and concurs with the plan as stated in the body of this note and will attest to such by his/her cosignature. ATTENDING NOTE I, Edward Perkins, have independently examined this patient and performed my own physical exam, as well as reviewed the documentation and edited where necessary. I have discussed in detail with the resident / student the findings and plan of treatment as documented by the resident / student and edited their note. I agree with their findings and treatment plan and have edited their documentation. I will continue to follow the patient during this hospital stay. Sandra BARNES OMS-3 Dec 13, 2020 09:36 EDWARD PERKINS MD Dec 13, 2020 10:52
[2020-12-13] MEDS ORDERED: COVID-19 VAC,AD26(JANSSEN)/PF 0.5ML SYRINGE (EUA) IM ONE (17:00)
[2020-12-13] MEDS: ASPIRIN 81MG ENTERIC TABLET PO SCH (21:08)
[2020-12-14] VITALS: BP 119/57
[2020-12-14] MEDS: FUROSEMIDE 100MG/10ML VIAL (J1940) IV SCH ×4 (00:21→23:00)
[2020-12-14] MEDS: ACETAMINOPHEN TAB 650MG DOSE (2X325MG) PO PRN (01:05)
[2020-12-14 04:00] VITALS: BP 119/78
[2020-12-14 05:45] LABS: BASO # 0.1 10^3/uL (0.0-0.2); BASO % 1.2 % (0.0-1.0); EOS # 0.2 10^3/uL (0.0-0.5); HEMATOCRIT 45.3 % (42.0-52.0); HEMOGLOBIN 13.8 g/dl (13.5-17.5); LYMPH # 0.7 10^3/uL (1.5-5.0); LYMPH % 14.8 % (24.0-44.0); MEAN CORPUSCULAR HEMOGLOBIN 25.8 pg (27.0-33.0); MEAN CORPUSCULAR HGB CONC 30.5 g/dl (32.0-36.5); MEAN CORPUSCULAR VOLUME 84.8 fl (80.0-96.0); MONO # 0.6 10^3/uL (0.0-0.8); NEUTROPHILS # 3.3 10^3/uL (1.5-8.5); NEUTROPHILS % 67.8 % (36.0-66.0); PLATELET COUNT, AUTOMATED 155 10^3/uL (150-450); RED BLOOD COUNT 5.34 10^6/uL (4.30-6.10); WHITE BLOOD COUNT 4.9 10^3/uL (4.0-10.0)
[2020-12-14 05:57] LABS: CALCIUM LEVEL 9.3 MG/DL (8.8-10.2); CREATININE FOR GFR 1.61 MG/DL (0.70-1.30); GLOMERULAR FILTRATION RATE 54.3 (>42); MAGNESIUM LEVEL 2.3 MG/DL (1.8-2.4); POTASSIUM SERUM 3.9 MEQ/L (3.5-5.1)
[2020-12-14 06:38] VITALS: BP 121/80
[2020-12-14 08:00] VITALS: BP 115/73
[2020-12-14] MEDS: APIXABAN 5 MG TAB (ELIQUIS) PO SCH ×2 (08:33→20:52)
[2020-12-14] MEDS: ENTRESTO 24-26MG TABLET (SACUBITRIL/VALSARTAN) PO SCH ×2 (08:33→08:38)
[2020-12-14] MEDS: VITAMIN D 1,000 INTERNATIONAL UNITS TABLET PO SCH (08:33)
[2020-12-14] MEDS: SITagliptin 50 MG TAB (JANUVIA) PO SCH (08:33)
[2020-12-14] MEDS: CARVedilol 6.25 MG TAB PO SCH ×2 (08:34→20:52)
--- NOTE | 2020-12-14 09:54 | IPNPDOC ---
Text Note Date of Service The patient was seen on 12/14/20. NOTE Subjective: Patient had a few beats of v tach overnight. Patient states that he is feeling much better. Reports that he no longer has any SOB or cough. Pt states that he has been sleeping without difficulties with only a slight elevation of the head of the bed. Pt has been eating and drinking without difficulties. Pt denies any headaches, nausea, vomiting, diarrhea, constipation, abdominal pain, chest pain. Objective: VITALS: See below. GENERAL: Patient is laying down in bed, comfortably at rest. No acute distress. HEENT: NC/AT. EOMI. Conjunctiva and lids normal. Normal ROM of neck. CARDIOVASCULAR: Regular rate and rhythm. Normal S1 and S2. No murmurs, rubs, or gallops. PULMONARY: Good breath sounds. Good air movement. No wheezes, rales, or rhonchi appreciated. ABDOMEN: Normoactive bowel sounds in all four quadrants. Abdomen soft and non tender to palpation. No distention. Reducible RLQ hernia. EXTREMITIES: 3+ pitting edema to knees, R>L. Assessment/Plan: Patient is a 75 year old -[place]aur[place] male with history of heart failure with reduced ejection fraction (EF 20-25%) with AICD, dilated cardiomyopathy, chronic kidney disease stage III, and IDDMT2 who presented to the ED due to wors ening SOB on exertion and eventually even at rest, BLE edema, and 10-15 lb weight gain. He admits to dietary indiscretion, eating "frozen pot pies", which he microwaves since being home. Patient adheres to a fluid restriction of 1.7 L at home, was seen by PT on the day of admission and was noted to be SOB with worsening edema and was encouraged to go to the ED for evaluation. He admits increasing weakness (unable to ambulate without a walker), productive cough with scant white sputum, paroxysmal nocturnal dyspnea, two-pillow orthopnea. In the ED, pt was found to be fluid overloaded with 3+ pitting edema to BLE. CXR showed L lower lobe infiltrate and layering effusion. Patient admitted for acute on chronic CHF 2/2 dietary indiscretion and L lower lobe healthcare associated pneumonia. #Acute on chronic CHF with reduced ejection fraction (EF 20-25%) with AICD - CHF exacerbation most likely 2/2 dietary indiscretion as patient reports eating frozen dinners but keeps to his 1.7 L fluid restriction and takes his medications daily. - Will keep patient on telemetry monitoring. - Strict I's and O's and daily weights to monitor patients volume status. - Keep patient on 2 L fluid restriction and 2 g sodium diet. - Will hold Entresto 1 tab PO BID - resume in 24-48 hours - Lasix 80 mg IV Q8H will be decreased to 60 mg Q8H due to a few beats of v tach that patient experienced, most likely due to electrolyte shift from diuresis. #L sided pleural effusion - CXR on 12/12/20 reported suspected left lower lobe airspace disease with possible small layering effusion. - Blood cultures, MRSA screen, sputum cultures, urine Legionella and urine streptococcal antigen ordered. - Procalcitonin is negative. - Patient has been afebrile since admission, WBC has been WNL, and patient complains of only an occasional cough. CXR showed small pleural effusion. Suspicion for pneumonia is low so Zosyn has been discontinued. #SVT - Patient has hx of a-fib with RVR and SVT. - He has AICD in place. #CKD Stage III - Patient's creatinine is currently at baseline. - Will monitor renal function. - Continue with diuresis in light of fluid overload #IDDM2 - Will keep patient on a consistent carb diet - Sliding scale insulin with hypoglycemic protocol. - A1C was 8.6 on 12/13/20. #Hypertension - Entresto on hold - Carvedilol 6.25 mg PO BID with holding parameters for SBP <100. #Obesity - Complicating care, BMI 40. #RLQ hernia, reducible - Pt was schedule to have hernia repair with Dr. Collins but this has been deferred due to recent admission. #History of alcohol abuse - Pt reports that he quit EtOH abuse. - Will monitor patient for any signs/sx of DT's. DVT Prophylaxis: Eliquis 5 mg PO BID. Disposition: Patient has been downgraded to med-surg. Will continue diuresis, 2 g sodium restriction, and 2 L fluid restriction. Will monitor patients fluid status. Placement will be the main problem with this patient, however patient reports that he is planning on moving in with his daughter in [place]. VS,Fishbone, I+O VS, Fishbone, I+O Laboratory Tests 12/14/20 05:06 Vital Signs Date Time Temp Pulse Resp B/P (MAP) Pulse Ox O2 Delivery O2 Flow Rate FiO2 12/14/20 08:34 89 115/73 12/14/20 08:00 96.6 17 99 Room Air I&O- Last 24 Hours up to 6 AM 12/14/20 06:00 Intake Total 1530 ml Output Total 4175 ml Balance -2645 ml GME ATTESTATION GME ATTESTATION My faculty preceptor for this patient encounter was physically present during the encounter and was fully available. All aspects of the patient interview, examination, medical decision making process, and medical care plan development were reviewed and approved by the faculty preceptor. The faculty preceptor is aware and concurs with the plan as stated in the body of this note and will attest to such by his/her cosignature. ATTENDING NOTE I, Edward Perkins, have independently examined this patient and performed my own physical exam, as well as reviewed the documentation and edited where necessary. I have discussed in detail with the resident / student the findings and plan of treatment as documented by the resident / student and edited their note. I agree with their findings and treatment plan and have edited their documentation. I will continue to follow the patient during this hospital stay. Sandra BARNES OMS-3 Dec 14, 2020 09:54 EDWARD PERKINS MD Dec 14, 2020 10:12
[2020-12-14 16:00] VITALS: BP 100/60
[2020-12-14 20:00] VITALS: BP 135/74
[2020-12-14] MEDS: ASPIRIN 81MG ENTERIC TABLET PO SCH (20:52)
[2020-12-14] MEDS: NYSTATIN 100,000 UNITS/GM TOPICAL PWD 15 GM TOP SCH (23:25)
[2020-12-15] VITALS (7 sets, daily range): BP systolic 90–134; BP diastolic 58–85
[2020-12-15] MEDS: ACETAMINOPHEN TAB 650MG DOSE (2X325MG) PO PRN (00:03)
[2020-12-15 06:22] LABS: BASO % 0.9 % (0.0-1.0); EOS # 0.2 10^3/uL (0.0-0.5); EOS % 3.7 % (0.0-3.0); HEMATOCRIT 43.6 % (42.0-52.0); HEMOGLOBIN 13.6 g/dl (13.5-17.5); LYMPH # 0.6 10^3/uL (1.5-5.0); LYMPH % 13.6 % (24.0-44.0); MEAN CORPUSCULAR HEMOGLOBIN 26.3 pg (27.0-33.0); MEAN CORPUSCULAR HGB CONC 31.2 g/dl (32.0-36.5); MEAN CORPUSCULAR VOLUME 84.2 fl (80.0-96.0); MONO # 0.7 10^3/uL (0.0-0.8); MONO % 14.3 % (2.0-8.0); NEUTROPHILS # 3.1 10^3/uL (1.5-8.5); NEUTROPHILS % 67.1 % (36.0-66.0); PLATELET COUNT, AUTOMATED 149 10^3/uL (150-450); RED BLOOD COUNT 5.18 10^6/uL (4.30-6.10); WHITE BLOOD COUNT 4.6 10^3/uL (4.0-10.0)
[2020-12-15] MEDS: FUROSEMIDE 100MG/10ML VIAL (J1940) IV SCH (06:30)
[2020-12-15 06:41] LABS: BLOOD UREA NITROGEN 37 MG/DL (7-18); CALCIUM LEVEL 9.3 MG/DL (8.8-10.2); CARBON DIOXIDE LEVEL 33 MEQ/L (21-32); CHLORIDE LEVEL 98 MEQ/L (98-107); CREATININE FOR GFR 1.44 MG/DL (0.70-1.30); GLOMERULAR FILTRATION RATE > 60.0 (>42); GLUCOSE, FASTING 170 MG/DL (70-100); MAGNESIUM LEVEL 2.3 MG/DL (1.8-2.4); POTASSIUM SERUM 3.8 MEQ/L (3.5-5.1); SODIUM LEVEL 135 MEQ/L (136-145)
[2020-12-15] MEDS: APIXABAN 5 MG TAB (ELIQUIS) PO SCH ×2 (08:49→19:09)
[2020-12-15] MEDS: VITAMIN D 1,000 INTERNATIONAL UNITS TABLET PO SCH (08:50)
[2020-12-15] MEDS: SITagliptin 50 MG TAB (JANUVIA) PO SCH (08:50)
[2020-12-15] MEDS: CARVedilol 6.25 MG TAB PO SCH ×2 (08:50→19:10)
[2020-12-15] MEDS: NYSTATIN 100,000 UNITS/GM TOPICAL PWD 15 GM TOP SCH ×2 (08:51→21:00)
--- NOTE | 2020-12-15 09:40 | IPNPDOC ---
Date Seen The patient was seen on 12/15/20. Progress Note SUBJECTIVE: Patient was seen and examined this morning. There have been no adverse events reported overnight. His entresto was discontinued yesterday due to soft pressures. He has no current complaints OBJECTIVE PHYSICAL EXAMINATION: VITAL SIGNS: Please see below. GENERAL: Awake, alert, and oriented. Does not appear to be in acute distress. Sitting up comfortably in chair HEENT: Atraumatic, normocephalic. Eyes are nonicteric. Trachea is midline. Mucous membranes are pink and moist CARDIOVASCULAR: Normal S1, S2. Regular rate and rhythm. No clicks, rubs, or murmurs RESPIRATORY: Clear breath sounds bilaterally. No wheezes, rhonchi, or rales ABDOMINAL: Soft, nondistended. Nontender. Obese. Normoactive bowel sounds EXTREMITIES: 2-3+ pitting edema. Full and equal pulses bilaterally in upper and lower extremities NEUROLOGICAL: No focal neurological deficits PSYCHOLOGICAL: Mood and affect appear appropriate LABORATORY DATA, IMAGING STUDIES, MICROBIOLOGY: Please see below. DVT prophylaxis ordered?: Abelino ASSESSMENT AND PLAN: Patient is a 75 year old male ith a past medical history significant for HFrEF (LVEF 20-25%) with AICD, dilated cardiomyopathy, chronic kidney disease stage III, and IDDMT2 who presented to the [facility] ED with complaint of worsening shortness of breath and found to be in acute on chronic CHF exacerbation. Patient has a history of dietary noncompliance. He has been receiving diuresis inpatient with significant improvement PROBLEMS: 1. Acute on Chronic HFrEF (LVEF 20-25%) -Exacerbation likely secondary to dietary noncompliance. Has been receiving IV lasix while inpatient. Has remained net negative. Patient has shown significant improvement and will likely be able to go home tomorrow pending PT clearance. Will change his diuretics to PO and restart entresto. -Continue 2L fluid restriction -2 gram sodium diet 2. Left sided pleural effusion -Likely secondary to his CHF exacerbation. Unlikely a pneumonia. Patient sounds clear bilaterally. 3. NSVT -History of NSVT. Likely secondary to structural heart disease in setting of low LVEF and current diuresis. He has an AICD in place. -No further evaluation needed 4. CKD Stage II -Creatinine has been around baseline. Actually better then baseline today. -Will continue to monitor 5. IDDM2 -Continue consistent carb diet -Continue Sitagliptin 6. Hypertension -Continue Carvedilol -Will resume Entresto today 7. Obesity -Complicate care 8. Right inguinal hernia -Patient is scheduled outpatient with Dr. Collins for repair. He will need outpatient Perioperative assessment before this can take place 9. DVT Prophylaxis -Continue home Eliquis DISPOSITION: Patient is at baseline. Will transition to PO diuretics. Likely D/C tomorrow. Have discussed at home nurse care. Patient is agreeable to having at home assistance. He states he plans on moving in with daughter in [place] once he gets his hernia operation VS, I&O, 24H, Fishbone Vital Signs/I&O Vital Signs Date Time Temp Pulse Resp B/P (MAP) Pulse Ox O2 Delivery O2 Flow Rate FiO2 12/15/20 08:50 92 134/85 12/15/20 07:03 97.9 18 93 Room Air I&O- Last 24 Hours up to 6 AM 12/15/20 06:00 Intake Total 890 ml Output Total 2200 ml Balance -1310 ml Laboratory Data 24H LABS Laboratory Tests 2 12/15/20 05:51: Immature Granulocyte % (Auto) 0.4, Neutrophils (%) (Auto) 67.1H, Lymphocytes (%) (Auto) 13.6L, Monocytes (%) (Auto) 14.3H, Eosinophils (%) (Auto) 3.7H, Basophils (%) (Auto) 0.9, Neutrophils # (Auto) 3.1, Lymphocytes # (Auto) 0.6L, Monocytes # (Auto) 0.7, Eosinophils # (Auto) 0.2, Basophils # (Auto) 0.0, Nucleated Red Bl ood Cells % (auto) 0.0, Anion Gap 4L, Glomerular Filtration Rate > 60.0, Calcium Level 9.3, Magnesium Level 2.3 CBC/BMP Laboratory Tests 12/15/20 05:51 Microbiology Microbiology 12/12/20 Blood Culture - Preliminary, Resulted No Growth after 48 hours. All Specime... 12/12/20 Blood Culture - Preliminary, Resulted No Growth after 48 hours. All Specime... GME ATTESTATION GME ATTESTATION My faculty preceptor for this patient encounter was physically present during the encounter and was fully available. All aspects of the patient interview, examination, medical decision making process, and medical care plan development were reviewed and approved by the faculty preceptor. The faculty preceptor is aware and concurs with the plan as stated in the body of this note and will attest to such by his/her cosignature. ATTENDING NOTE I, Edward Ny, have independently examined this patient and performed my own physical exam, as well as reviewed the documentation and edited where necessary. I have discussed in detail with the resident / student the findings and plan of treatment as documented by the resident / student and edited their note. I agree with their findings and treatment plan and have edited their documentation. I will continue to follow the patient during this hospital stay. APOLINAR AMAYA DO Dec 15, 2020 09:40 EDWARD [place] MD Dec 15, 2020 11:21
[2020-12-15] MEDS: ENTRESTO 24-26MG TABLET (SACUBITRIL/VALSARTAN) PO SCH ×2 (12:18→22:07)
[2020-12-15] MEDS: ASPIRIN 81MG ENTERIC TABLET PO SCH (19:09)
[2020-12-15] MEDS ORDERED: TORSEMIDE 20 MG TAB PO SCH (21:00)
[2020-12-15] MEDS: FLUTICASONE PROP 0.05% NASAL SPRAY 16 GM (FLONASE) NARES PRN (22:07)
[2020-12-16 06:00] VITALS: BP 109/74
[2020-12-16 06:22] LABS: BASO # 0.1 10^3/uL (0.0-0.2); BASO % 1.3 % (0.0-1.0); EOS # 0.2 10^3/uL (0.0-0.5); EOS % 3.4 % (0.0-3.0); HEMATOCRIT 43.4 % (42.0-52.0); HEMOGLOBIN 13.7 g/dl (13.5-17.5); LYMPH # 0.9 10^3/uL (1.5-5.0); LYMPH % 17.9 % (24.0-44.0); MEAN CORPUSCULAR HEMOGLOBIN 26.2 pg (27.0-33.0); MEAN CORPUSCULAR HGB CONC 31.6 g/dl (32.0-36.5); MONO # 0.7 10^3/uL (0.0-0.8); MONO % 14.5 % (2.0-8.0); NEUTROPHILS % 62.5 % (36.0-66.0); PLATELET COUNT, AUTOMATED 153 10^3/uL (150-450); RED BLOOD COUNT 5.23 10^6/uL (4.30-6.10); WHITE BLOOD COUNT 4.8 10^3/uL (4.0-10.0)
[2020-12-16 06:41] LABS: CREATININE FOR GFR 1.56 MG/DL (0.70-1.30); GLOMERULAR FILTRATION RATE 56.3 (>42); MAGNESIUM LEVEL 2.2 MG/DL (1.8-2.4)
[2020-12-16] MEDS: SITagliptin 50 MG TAB (JANUVIA) PO SCH (08:22)
[2020-12-16] MEDS: VITAMIN D 1,000 INTERNATIONAL UNITS TABLET PO SCH (08:22)
[2020-12-16 08:23] VITALS: BP 109/74
[2020-12-16] MEDS: APIXABAN 5 MG TAB (ELIQUIS) PO SCH (08:23)
[2020-12-16] MEDS: CARVedilol 6.25 MG TAB PO SCH (08:23)
[2020-12-16] MEDS: FLUTICASONE PROP 0.05% NASAL SPRAY 16 GM (FLONASE) NARES PRN (08:23)
[2020-12-16] MEDS: ENTRESTO 24-26MG TABLET (SACUBITRIL/VALSARTAN) PO SCH (08:25)
[2020-12-16] MEDS: NYSTATIN 100,000 UNITS/GM TOPICAL PWD 15 GM TOP SCH (08:32)
[2020-12-16] MEDS ORDERED: TORSEMIDE 100 MG TAB PO SCH (09:00)
--- NOTE | 2020-12-16 10:33 | DS.PDOC ---
Discharge Summary General Date of Admission Dec 12, 2020 at 20:53 Date of Discharge 12/16/20 Primary Care Physician: JIA KRAUS DO Attending Physician: EDWARD PERKINS MD Discharge Summary PROCEDURES PERFORMED DURING STAY: [None]. ADMITTING DIAGNOSES: 1. Acute on chronic systolic and diastolic congestive heart failure 2. Chronic Kidney Disease Stage III 3. DMII 4. Obesity DISCHARGE DIAGNOSES: 1. Acute on chronic systolic and diastolic congestive heart failure 2. Chronic Kidney Disease Stage III 3. DMII 4. Obesity COMPLICATIONS/CHIEF COMPLAINT: Chf Exacerbation. HISTORY OF PRESENT ILLNESS: Patient is a 75 year old male with a past medical history significant for HFrEF LVEF of 20-25% s/p AICD placement, CKD III, and obesity who presented to [facility] with a complaint of worsening shortness of breath. Patient had noted a 10-15 lb weight gain. Patient had stated that he was taking his medications as prescribed however stated that he was eating poorly. He stated that he was eating mostly frozen chicken pot pies. In the ER the patient had increased lower extremity edema. His chest x-ray demonstrated a left lower lobe infiltrate and layering effusion. He was admitted with an acute exacerbation of his CHF as well as a LLL pneumonia. HOSPITAL COURSE: After admission on evaluation the patient did not appear to have a pneumonia.Antibiotics were discontinued. Patient was originally placed on IV lasix. He diuresed significantly overnight with a net negative of 4L. His BP was on the soft side which was likely secondary to the aggressive diuresis and continuation of his Entresto. His Entresto was held and the patient was continued with diuresis. He demonstrated improvement. His medications were transitioned to PO and the patient was discharged home with recommendations to follow-up with PCP and Cardiology. Patient had mentioned that he has a planned inguinal hernia repair on the 30 of December. He will likely need Preop from his PCP and cardiac clearance from Cardiology. Patient was made aware of this. He has also stated that his dietary non-compliance is due to his difficulty caring for himself. Patient is planning on moving in with his daughter who lives in [place] once he has his inguinal hernia repair. In the mean time the patient will be receiving home health. DISCHARGE MEDICATIONS: Please see below. ALLERGIES: Please see below. PHYSICAL EXAMINATION ON DISCHARGE: VITAL SIGNS: Please see below. GENERAL: Awake, alert, and oriented. Does not appear to be in acute distress. Sitting up comfortably in chair HEENT: Atraumatic, normocephalic. Eyes are nonicteric. Trachea is midline. Mucous membranes are pink and moist CARDIOVASCULAR: Normal S1, S2. Regular rate and rhythm. No clicks, rubs, or murmurs RESPIRATORY: Clear breath sounds bilaterally. No wheezes, rhonchi, or rales ABDOMINAL: Soft, nondistended. Nontender. Obese. Normoactive bowel sounds EXTREMITIES: 2-3+ pitting edema. Full and equal pulses bilaterally in upper and lower extremities NEUROLOGICAL: No focal neurological deficits PSYCHOLOGICAL: Mood and affect appear appropriate LABORATORY DATA: Please see below. IMAGING: INDICATION: DYSPNEA/COUGH COMPARISON: 12/03/2020 TECHNIQUE: Portable AP view of the chest FINDINGS: Mediastinum and cardiac silhouette are stable with pacemaker again noted. Lung caraballo demonstrate chronic changes with left lower lobe infiltrate suggesting acute pneumonia and possible small layering effusion. No pneumothorax. Skeletal structures stable. IMPRESSION: Suspected left lower lobe airspace disease with possible small layering effusion. <Electronically signed by Zachary Saxena > 12/12/20 0015 PROCEDURE INFORMATION: Exam: US Duplex Lower Extremity Veins, Bilateral Exam date and time: 12/12/2020 5:54 PM Age: 75 years old Clinical indication: Swelling (edema) of limb; Lower extremity, bilateral TECHNIQUE: Imaging protocol: Real-time duplex ultrasound of the extremities with 2-D mcknight scale, color Doppler flow and spectral waveform analysis with image documentation. Complete exam focused on the bilateral lower extremity veins. COMPARISON: No relevant prior studies available. FINDINGS: Right deep veins: The common femoral, proximal and mid femoral, and popliteal veins are patent without thrombus. Normal compressibility and/or augmentation response. Compression imaging of the distal right femoral vein is suboptimal, although flow is demonstrated within this vessel. Right superficial veins: Limited evaluation. Left deep veins: The common femoral, proximal and mid femoral, and popliteal veins are patent without thrombus. Normal compressibility and/or augmentation response. Compression imaging of the distal left femoral vein is suboptimal, although flow is demonstrated within this vessel. Left superficial veins: Limited evaluation. Soft tissues: Soft tissue edematous changes are identified involving the bilateral lower extremities. IMPRESSION: 1. No evidence of occlusive deep venous thrombosis from the common femoral to the popliteal veins bilaterally. Evaluation of the distal femoral veins is limited bilaterally. 2. Soft tissue edematous changes are identified involving the bilateral lower extremities. Electronically signed by: Henok Gilmore On 12/12/2020 18:37:59 PM PROGNOSIS: Good ACTIVITY: [As tolerated]. DIET: 2G Sodium with 2L Fluid restriction DISCHARGE PLAN: Patient is to be discharged home. He is to continue his medications as previously prescribed. He was counseled on importance of diet in management of his CHF. Patient states that he will adhere to a diet. Patient will follow-up with Cardiology and his PCP in 1-2 weeks DISCHARGE INSTRUCTIONS: 1. Continue Medications as previously prescribed 2. Follow-up with PCP for Hospital Follow-up 3. Follow-up with Cardiology 4. Return to the ER if you experience any problems DISCHARGE CONDITION: [Stable]. TIME SPENT ON DISCHARGE: 30 minutes. Vital Signs/I&Os Vital Signs Date Time Temp Pulse Resp B/P (MAP) Pulse Ox O2 Delivery O2 Flow Rate FiO2 12/16/20 08:23 64 109/74 12/16/20 06:00 96.5 20 100 Room Air I&O- Last 24 Hours up to 6 AM 12/16/20 06:00 Intake Total 1000 ml Output Total 1875 ml Balance -875 ml Laboratory Data Labs 24H Laboratory Tests 2 12/16/20 05:37: Immature Granulocyte % (Auto) 0.4, Neutrophils (%) (Auto) 62.5, Lymphocytes (%) (Auto) 17.9L, Monocytes (%) (Auto) 14.5H, Eosinophils (%) (Auto) 3.4H, Basophils (%) (Auto) 1.3H, Neutrophils # (Auto) 3.0, Lymphocytes # (Auto) 0.9L, Monocytes # (Auto) 0.7, Eosinophils # (Auto) 0.2, Basophils # (Auto) 0.1, Nucleated Red Blood Cells % (auto) 0.0, Anion Gap 5L, Glomerular Filtration Rate 56.3, Calcium Level 9.0, Magnesium Level 2.2 CBC/BMP Laboratory Tests 12/16/20 05:37 Microbiology Microbiology 12/12/20 Blood Culture - Preliminary, Resulted No Growth after 72 hours. All specime... 12/12/20 Blood Culture - Preliminary, Resulted No Growth after 72 hours. All specime... Discharge Medications Scheduled Apixaban (Eliquis) 5 Mg Tablet, 5 MG PO BID, (Reported) Aspirin (Aspirin EC) 81 Mg Tab, 81 MG PO QHS, (Reported) Carvedilol (Carvedilol) 6.25 Mg Tablet, 6.25 MG PO BID, (Reported) Cholecalciferol (Vitamin D3) (Vitamin D3) 1,000 Unit Tablet, 1,000 UNITS PO DAILY, (Reported) Febuxostat (Febuxostat) 80 Mg Tablet, 80 MG PO DAILY, (Reported) Insulin Glargine,Hum.rec.anlog (Toujeo Solostar) 300 Unit/Ml Inj, 10 UNITS SC QHS, (Reported) Sacubitril/Valsartan (Entresto 24 mg-26 mg Tablet) 1 Each Tablet, 1 TAB PO BID, (Reported) Sitagliptin (Januvia) 50 Mg Tab, 50 MG PO DAILY, (Reported) Torsemide (Torsemide) 100 Mg Tablet, 100 MG PO DAILY, (Reported) Torsemide (Torsemide) 20 Mg Tablet, 20 MG PO QHS, (Reported) Scheduled PRN Fluticasone Propionate (Fluticasone Propionate) 50 Mcg/Act Spr, 1 SPRAY NARES BID PRN for NASAL CONGESTION, (Reported) Allergies Coded Allergies: No Known Allergies (Unverified , 11/09/19) GME ATTESTATION GME ATTESTATION My faculty preceptor for this patient encounter was physically present during the encounter and was fully available. All aspects of the patient interview, exa mination, medical decision making process, and medical care plan development were reviewed and approved by the faculty preceptor. The faculty preceptor is aware and concurs with the plan as stated in the body of this note and will attest to such by his/her cosignature. ATTENDING NOTE I, Edward Perkins, have independently examined this patient and performed my own physical exam, as well as reviewed the documentation and edited where necessary. I have discussed in detail with the resident / student the findings and plan of treatment as documented by the resident / student and edited their note. I agree with their findings and treatment plan and have edited their documentation. I will continue to follow the patient during this hospital stay. Time spent on discharge 35 minutes APOLINAR AMAYA DO Dec 16, 2020 10:33 EDWARD PERKINS MD Dec 16, 2020 13:30
== END 2020-12-16 10:55 | disposition home or self-care (01) | DRG 291 ==
LOC: M ED 16:32 → M ED INP 20:53 → M PCU 22:30 → M MS5PR 12-15 16:35
PROVIDERS: ADMIT General Practice; ATTEND Internal Medicine
DX: I13.0 Hypertensive heart and chronic kidney disease with heart failure and stage 1 through stage 4 chronic kidney disease, or unspecified chronic kidney disease (principal); I50.43 Acute on chronic combined systolic (congestive) and diastolic (congestive) heart failure; Z68.41 Body mass index [BMI] 40.0-44.9, adult; N25.81 Secondary hyperparathyroidism of renal origin; I47.2 Ventricular tachycardia; N18.30 Chronic kidney disease, stage 3 unspecified; E11.22 Type 2 diabetes mellitus with diabetic chronic kidney disease; E66.9 Obesity, unspecified; Z79.899 Other long term (current) drug therapy; Z79.82 Long term (current) use of aspirin; Z96.653 Presence of artificial knee joint, bilateral; K76.0 Fatty (change of) liver, not elsewhere classified; Z79.4 Long term (current) use of insulin; K40.90 Unilateral inguinal hernia, without obstruction or gangrene, not specified as recurrent

== ENCOUNTER 2020-12-23 12:56 | Emergency (ER) | payer MEDICARE, MEDICAID ==
[~2020-12-23] VITALS: Ht 188 cm; Wt 140.9 kg
[2020-12-23 13:34] LABS: HEMATOCRIT 45.1 % (42.0-52.0); HEMOGLOBIN 14.4 g/dl (13.5-17.5); MEAN CORPUSCULAR HEMOGLOBIN 26.7 pg (27.0-33.0); MEAN CORPUSCULAR HGB CONC 31.9 g/dl (32.0-36.5); MEAN CORPUSCULAR VOLUME 83.7 fl (80.0-96.0); PLATELET COUNT, AUTOMATED 198 10^3/uL (150-450); RED BLOOD COUNT 5.39 10^6/uL (4.30-6.10); WHITE BLOOD COUNT 4.7 10^3/uL (4.0-10.0)
[2020-12-23 13:57] LABS: INR 1.61; PROTHROMBIN TIME 19.5 SECONDS (12.5-14.3)
[2020-12-23 13:58] LABS: PARTIAL THROMBOPLASTIN TIME 39.6 SECONDS (24.2-38.5)
[2020-12-23 15:46] VITALS: BP 102/69
== END 2020-12-23 16:37 | disposition home or self-care (01) ==
LOC: EDBD 12:56 → M ED 12:56
DX: R04.0 Epistaxis (principal); I13.0 Hypertensive heart and chronic kidney disease with heart failure and stage 1 through stage 4 chronic kidney disease, or unspecified chronic kidney disease; E11.9 Type 2 diabetes mellitus without complications; Z79.01 Long term (current) use of anticoagulants; Z79.899 Other long term (current) drug therapy

== ENCOUNTER 2021-02-26 07:47 | Inpatient (IN) | payer MEDICARE, MEDICAID ==
[2021-02-26] VITALS (15 sets, daily range): BP systolic 83–104; BP diastolic 54–75
[~2021-02-26] VITALS: Ht 188 cm; Wt 126.7 kg
[2021-02-26] MEDS ORDERED: NS IV ONE (08:15)
[2021-02-26] MEDS ORDERED: cefTRIAXone SOD 2 GM in D5W MINI-BAG PLUS 50 ML IV ONE (08:15)
[2021-02-26 08:20] LABS: VENOUS BASE EXCESS -1.2 (-2.0-2.0); VENOUS HCO3 24.4 MEQ/L (23.0-27.0); VENOUS O2 SATURATION 52.7 % (60.0-80.0); VENOUS PARTIAL PRESSURE CO2 43.9 mmHg (38.0-50.0); VENOUS PARTIAL PRESSURE O2 29.5 mmHg (30.0-50.0); VENOUS PH 7.363 UNITS (7.330-7.430); VENOUS STANDARD HCO3 22.2 MEQ/L; VENOUS TOTAL CO2 25.8 MEQ/L (24.0-28.0)
[2021-02-26 08:23] LABS: BASO % 0.2 % (0.0-1.0); EOS # 0.1 10^3/uL (0.0-0.5); EOS % 0.4 % (0.0-3.0); HEMATOCRIT 52.3 % (42.0-52.0); HEMOGLOBIN 16.7 g/dl (13.5-17.5); LYMPH # 0.6 10^3/uL (1.5-5.0); LYMPH % 3.5 % (24.0-44.0); MEAN CORPUSCULAR HEMOGLOBIN 25.6 pg (27.0-33.0); MEAN CORPUSCULAR HGB CONC 31.9 g/dl (32.0-36.5); MEAN CORPUSCULAR VOLUME 80.2 fl (80.0-96.0); MONO # 0.7 10^3/uL (0.0-0.8); MONO % 4.1 % (2.0-8.0); NEUTROPHILS # 15.1 10^3/uL (1.5-8.5); NEUTROPHILS % 91.3 % (36.0-66.0); PLATELET COUNT, AUTOMATED 165 10^3/uL (150-450); RED BLOOD COUNT 6.52 10^6/uL (4.30-6.10); WHITE BLOOD COUNT 16.5 10^3/uL (4.0-10.0)
--- NOTE | 2021-02-26 08:29 | REP ---
INDICATION: DYSPNEA/COUGH. COMPARISON: Comparison radiograph December 12, 2020. TECHNIQUE: Portable upright AP chest radiograph. FINDINGS: A unipolar pacemaker is seen in the enlarged heart view of the left side as before. Monitoring electrodes are seen. Pulmonary vasculature is cephalized. No infiltrate is seen. The pleural angles are sharp.. IMPRESSION: Cardiomegaly with pacemaker. No infiltrate seen.. <Electronically signed by Kaleb Yancey > 02/26/21 [id number]
[2021-02-26 08:58] LABS: ALBUMIN 3.3 GM/DL (3.2-5.2); ALT/SGPT 18 U/L (12-78); BILIRUBIN,DIRECT 0.7 MG/DL (0.0-0.2); BILIRUBIN,TOTAL 1.8 MG/DL (0.2-1.0); BLOOD UREA NITROGEN 30 MG/DL (7-18); CALCIUM LEVEL 9.2 MG/DL (8.8-10.2); CARBON DIOXIDE LEVEL 26 MEQ/L (21-32); CHLORIDE LEVEL 93 MEQ/L (98-107); CK-MB VALUE MASS < 1.0 NG/ML (<3.6); CPK CREATINE PHOSPHOKINASE 76 U/L (39-308); CREATININE FOR GFR 2.66 MG/DL (0.70-1.30); GLOMERULAR FILTRATION RATE 30.4 (>42); GLUCOSE, FASTING 322 MG/DL (70-100); MB/CK RELATIVE INDEX 1.32 (< OR =4); NT-PRO BNP 24611 PG/ML (<450); POTASSIUM SERUM 4.7 MEQ/L (3.5-5.1); SODIUM LEVEL 130 MEQ/L (136-145); TOTAL PROTEIN 7.5 GM/DL (6.4-8.2); TROPONIN I 0.39 NG/ML (< 0.10)
[2021-02-26] MEDS ORDERED: PANTOPRAZOLE 40MG VIAL (C9113 PER 1) IV SCH (09:00)
--- NOTE | 2021-02-26 09:43 | REP ---
INDICATION: shortness of breath. COMPARISON: Comparison chest CT study July 30, 2020.. TECHNIQUE: Helical scanning is acquired. 3 mm axial images are generated. Coronal and sagittal MPR and coronal MIP images are generated. FINDINGS: Preliminary digital trigonometry teacher radiograph demonstrates cardiomegaly with pacemaker in place. On axial CT images, lung window settings show no evidence of infiltrate. No pleural or significant pericardial effusion is seen. No hilar or mediastinal mass or adenopathy is seen. There are scattered granulomatous tiny nodules in the lung parenchyma. No significant pulmonary nodule is appreciated. There are tiny accessory splenule is in the left upper quadrant. There is a common bile duct stent noted in place with pneumobilia. No bony destructive lesion is appreciated. IMPRESSION: Cardiomegaly with pacemaker. Old granulomatous changes. No acute cardiothoracic abnormality. <Electronically signed by Kaleb Yancey > 02/26/21 [id number]
[2021-02-26 11:05] LABS: CK-MB VALUE MASS 1.1 NG/ML (<3.6); MB/CK RELATIVE INDEX 1.31 (< OR =4); TROPONIN I 0.36 NG/ML (< 0.10)
[2021-02-26] MEDS ORDERED: POTA1TAB23 PO (11:48)
[2021-02-26] MEDS ORDERED: CARV12.5 PO (11:48)
[2021-02-26] MEDS ORDERED: GLUCOSE 4GM CHEW TABLET PO PRN (12:25)
[2021-02-26] MEDS ORDERED: GLUCAGON INJ 1MG VIAL SC PRN (12:25)
[2021-02-26] MEDS ORDERED: ALBUTEROL SULFATE 2.5 MG/0.5 ML INH NEB SOLN NEB PRN (12:25)
[2021-02-26] MEDS ORDERED: DEXTROSE 50% 50 ML SYRINGE IV PRN (12:25)
[2021-02-26 13:36] LABS: CK-MB VALUE MASS 1.9 NG/ML (<3.6); TROPONIN I 0.44 NG/ML (< 0.10)
[2021-02-26] MEDS: MEROPENEM INJ 1 GM in IV 1 EA IV SCH (13:46)
[2021-02-26] MEDS: NS 1,000 ML IV SCH (13:47)
--- NOTE | 2021-02-26 15:18 | HPE ---
HISTORY AND PHYSICAL DATE OF ADMISSION: 02/26/2021 Patient is seen at approximately 12:15 p.m. in the emergency department on 02/26/2021 by me. CHIEF COMPLAINT: Shortness of breath. HISTORY OF PRESENT ILLNESS: Mr. Vargas is a 75-year-old -[place] gentleman who has a past medical history significant for chronic systolic congestive heart failure with a left ventricular ejection fraction of 20-25%, status post automatic implantable cardioverter-defibrillator (AICD) placement. He also has history of chronic kidney disease (CKD) stage III and diabetes mellitus type 2, insulin dependent, along with morbid obesity. Patient was last hospitalized in December 2020 for several days following an admission for decompensated heart failure. He presents today to the hospital with several days of worsening shortness of breath. The patient was brought in by ambulance and was requiring 6 liters on arrival. Workup thus far in the emergency room (ER) indicates that the patient is septic from a urinary source with a white blood count of 16.5, lactic acid of 4.6, a procalcitonin of 35.5. On arrival, the patient's blood pressure was 79/50 and then it did drop into the 60s. He was bolused several times with intravenous (IV) fluids and a thorough investigation, including a CT scan of his chest without contrast showed no evidence of infiltrates or worsening heart failure. They were able to wean him from the 6 liters to room air. He is currently 95% on room air. He is not exhibiting any shortness of breath. Urinalysis obtained was purulent and grossly abnormal and indicative of urinary tract infection. The patient was treated with IV Rocephin. He was keita cultured and admitted to the hospitalist service following consultation with Dr. Frank of cardiology. ALLERGIES: No known drug allergies (NKDA). CURRENT HOME MEDICATIONS: - Eliquis 5 mg twice a day - aspirin 81 mg daily - Coreg 12.5 mg twice a day - cholecalciferol 1000 units daily - febuxostat 80 mg by mouth daily - Flonase one spray to nares twice a day as needed for congestion - insulin Glargine 14 units at bedtime - potassium chloride 20 mEq twice a day - Entresto one tablet daily - Januvia 50 mg by mouth daily - torsemide 100 mg twice a day PAST MEDICAL HISTORY: Notable for: 1. Insulin dependent diabetes mellitus type 2. 2. Chronic systolic congestive heart failure. 3. Morbid obesity with body mass index (BMI) greater than 40. 4. Fatty liver disease. 5. History of right lower quadrant hernia. 6. History of chronic kidney disease (CKD) stage III. 7. Hypertension. 8. Hyperlipidemia. PAST SURGICAL HISTORY: Notable for: 1. Bilateral total knee replacement. 2. Left inguinal hernia repair, 1996. SOCIAL HISTORY: Patient drinks about a glass of bourbon daily. He lives alone. He does not use any illicit drugs or tobacco products. He lists himself as a FULL CODE. He lists his son, Blas Vargas Jr., as a medical decision maker. FAMILY HISTORY: Was asked, but is pertinent only for heart disease. REVIEW OF SYSTEMS: Was reviewed with the patient, otherwise negative other than what is mentioned in the history of present illness (HPI). He denies having any chest discomfort. He has not had any increased lower extremity swelling. He denies having any dysuria or increased frequency or urgency to void. He denies having any costovertebral angle (CVA) tenderness. PHYSICAL EXAMINATION: Patient's blood pressure is currently 77/50, pulse 80, currently in irregularly irregular rhythm consistent with atrial fibrillation on telemetry. His pulse oximetry is 95% on room air. Temperature is 95.6. GENERAL: The patient is an -[place] gentleman, morbidly obese. He appears to be acutely ill. He is not exhibiting any labored breathing at this time. When I saw him he was sitting up on the commode waiting to be transferred back to bed. SKIN: Intact and warm to touch. He has lower extremity edema, which is 23 + and symmetric. No visible rashes are noted, although the patient does have dark skin and it is difficult to exclude. HEAD: Atraumatic. His pupils are symmetric and react to light. Oropharynx is clear. Neck supple. LUNG SOUNDS: Present without any appreciable rales, wheezes or rhonchi. HEART: S1, S2. He is currently in regular rhythm. He has an S3. ABDOMEN: Soft, nontender, nondistended without any visible ascites. EXTREMITIES: Without any significant cyanosis or clubbing. He has lower extremity edema 2+ bilaterally. No diabetic leg lesions are appreciated. NEUROLOGIC: Cranial nerves II-XII grossly intact. Patient has no facial droop. His speech is fluent. He is moving all extremities. Motor strength is 5/5 in the upper and lower extremities. PERTINENT DIAGNOSTIC STUDIES: CT scan of the chest without contrast showed no acute findings. Chest x-ray showed no acute findings. COVID swab was negative. Blood cultures and urine culture are pending at this time. Procalcitonin was 35.35. Urinalysis is grossly abnormal. White count 16.5, hemoglobin 16.7, hematocrit 52, platelet count 165,000. Sodium 130, potassium 4.7, chloride 103, bicarbonate 26, anion gap 11, BUN 30, creatinine 2.66, glucose 322, lactic acid 4.6, calcium 9.2, Total bilirubin 1.8, AST 8, ALT 18, alkaline phosphatase 76. Initial troponin markers are slightly elevated at 0.39. Subsequent one has come down to 0.36. NT-proBNP was 24,611. TSH is 1.45. IMPRESSION: 1. Shock secondary to acute cystitis present on admission. Patient will be admitted to the intensive care unit. He has been bolused with IV fluids. His blood pressure has improved at this time. We will contact general surgery to put a central line in and then we can make a determination whether the patient will need inotropes versus pressor support. For now, he will be place on normal saline 75 mL/hour. Will obtain serial lactic acid levels. Patient will be transitioned to meropenem for antibiotic coverage. Will hold his Entresto as well as other cardiac medications given his low blood pressure. Patient will require a minimum of two midnights hospital stay. 2. Acute shortness of breath, which is secondary to patient's decompensated systolic heart failure secondary to acute septic shock. This is likely also causing cardiorenal syndrome. Patient will be hydrated. We will reevaluate his BNP. We will check urine studies. His torsemide will be held for now. We will gently hydrate him and then decide if we will put him on pressors or continue with fluids. 3. Type 2 non-ST segment elevation myocardial infarction (NSTEMI) with mild elevated cardiac markers. Cardiology will be consulted in the a.m. Patient follows with Dr. Biswas. We will check serial troponins. Echocardiogram has been done in the ER department STAT and the results are pending at this time. 4. Acute on chronic renal failure in the setting of chronic kidney disease (CKD) stage III. Urine chemistries will be checked. Renal ultrasound will be checked. We will repeat BNP in the a.m. and monitor patient's I's and O's strictly. 5. Insulin dependent diabetes mellitus type 2. Patient will be placed on sliding scale as well as diabetic diet. I am going to reduce his Lantus slightly due to his elevated renal function. 6. Deep venous thrombosis (DVT) prophylaxis. Patient will be maintained on his Eliquis. Patient will be FULL CODE. A total of 60 minutes spent completing all admission activities.
[2021-02-26] MEDS: HumaLOG INSULIN (NovoLOG) PER UNIT SC SCH (17:25)
--- NOTE | 2021-02-26 18:02 | REP ---
INDICATION: acute on chronic renal failure. COMPARISON: Comparison sonography August 02, 2019.. TECHNIQUE: Urinary tract sonography. FINDINGS: Glass catheter is present in the urinary bladder.. Renal cortical echogenicity pattern is normal bilaterally and contours are smooth. There is no evidence of hydronephrosis, cyst, mass, or calculus in either kidney. The right kidney measures 13.1 x 5.8 x 6.2 cm. Left renal dimensions are 12.0 x 5.2 x 5.7 cm. IMPRESSION: Glass catheter. No morphologic abnormality noted.. <Electronically signed by Kaleb Yancey > 02/26/21 [id number]
[2021-02-26] MEDS ORDERED: PHENYLEPHRINE HCL INJ 50 MG in D5W 495 ML IV SCH (19:00)
--- NOTE | 2021-02-26 19:08 | REP ---
INDICATION: Rule out Pneumo post Line attempt. COMPARISON: Comparison radiograph is from 8:12 a.m. on February 26, 2021. TECHNIQUE: Portable upright AP chest radiograph. FINDINGS: The lungs remain well inflated. There is no evidence of infiltrate. No pneumothorax or hydrothorax is seen. Moderate cardiac enlargement is observed. A unipolar pacemaker is again seen.. IMPRESSION: No evidence of pneumothorax. Cardiomegaly with pacemaker.. <Electronically signed by Kaleb Yancey > 02/26/21 [id number]
--- NOTE | 2021-02-26 20:23 | ECGEPIP ---
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
[2021-02-26] MEDS ORDERED: CHLORHEXIDINE GLUCONATE 0.12 % 15ML UDC (PERIDEX ORAL RINSE) MT SCH (21:00)
[2021-02-26] MEDS: ASPIRIN 81MG ENTERIC TABLET PO SCH (21:08)
[2021-02-26 21:26] LABS: CK-MB VALUE MASS 1.8 NG/ML (<3.6); MB/CK RELATIVE INDEX 1.64 (< OR =4); TROPONIN I 0.29 NG/ML (< 0.10)
[2021-02-27] VITALS: BP 96/63
[2021-02-27] MEDS: MEROPENEM INJ 1 GM in IV 1 EA IV SCH ×3 (01:50→17:28)
[2021-02-27 03:02] LABS: MB/CK RELATIVE INDEX 1.03 (< OR =4); TROPONIN I 0.2 NG/ML (< 0.10)
[2021-02-27] MEDS: NS 1,000 ML IV SCH (03:11)
[2021-02-27 04:00] VITALS: BP 89/54
[2021-02-27 05:08] LABS: BASO % 0.3 % (0.0-1.0); EOS % 0.2 % (0.0-3.0); HEMATOCRIT 44.7 % (42.0-52.0); HEMOGLOBIN 14.3 g/dl (13.5-17.5); LYMPH # 0.7 10^3/uL (1.5-5.0); LYMPH % 8.2 % (24.0-44.0); MEAN CORPUSCULAR HEMOGLOBIN 25.4 pg (27.0-33.0); MEAN CORPUSCULAR VOLUME 79.3 fl (80.0-96.0); MONO # 0.7 10^3/uL (0.0-0.8); MONO % 7.5 % (2.0-8.0); NEUTROPHILS # 7.2 10^3/uL (1.5-8.5); NEUTROPHILS % 83.5 % (36.0-66.0); PLATELET COUNT, AUTOMATED 125 10^3/uL (150-450); RED BLOOD COUNT 5.64 10^6/uL (4.30-6.10); WHITE BLOOD COUNT 8.6 10^3/uL (4.0-10.0)
[2021-02-27 05:48] LABS: ALBUMIN 2.6 GM/DL (3.2-5.2); BILIRUBIN,TOTAL 0.6 MG/DL (0.2-1.0); CALCIUM LEVEL 7.7 MG/DL (8.8-10.2); CREATININE FOR GFR 1.51 MG/DL (0.70-1.30); GLOMERULAR FILTRATION RATE 58.4 (>42); POTASSIUM SERUM 3.3 MEQ/L (3.5-5.1); TOTAL PROTEIN 6.1 GM/DL (6.4-8.2)
[2021-02-27] MEDS ORDERED: POTASSIUM CHLORIDE 10 MEQ SR TABLET PO ONE (07:15)
[2021-02-27 07:47] VITALS: BP 93/59
[2021-02-27] MEDS: HumaLOG INSULIN (NovoLOG) PER UNIT SC SCH ×4 (08:27→20:15)
[2021-02-27] MEDS: PANTOPRAZOLE 40MG TAB (PROTONIX) PO SCH (08:27)
[2021-02-27] MEDS ORDERED: APIXABAN 5 MG TAB (ELIQUIS) PO SCH (09:00)
[2021-02-27 11:29] VITALS: BP 103/67
--- NOTE | 2021-02-27 11:57 | IPNPDOC ---
Subjective Date Seen The patient was seen on 02/27/21. Subjective Chief Complaint/HPI Blas is doing well this morning, his blood pressure is stable, he is no longer on Bryan-Synephrine drip via peripheral line. Yesterday both Drs. Cunningham and Yany were unable to place a central line after 4 attempts, this patient has poor central venous access if pressors are required in the future he will need interventional radiology to place a central line under fluoroscopy. He denies shortness of breath despite receiving IV fluids to treat his shock. His urine output has remained steady overnight. No significant arrhythmias were noted overnight on telemetry. Objective Physical Examination General Exam: Positive: No Acute Distress Eye Exam: Positive: PERRLA, Conjunctiva & lids normal, EOMI; Negative: Sclera icteric Neck Exam: Positive: Supple; Negative: JVD, thyromegaly Chest Exam: Positive: Normal air movement, Wheezing (mild inspiratory wheeze) Heart Exam: Positive: Rate Normal, Normal S1, Normal S2 Telemetry: Positive: No significant arrhythmia Abdomen Exam: Positive: Normal bowel sounds, Soft, Other (no ascites); Negative: Tenderness Extremity Exam: Positive: Edema (chronic lymphedema 2+ unchanged from admissio n) Skin Exam: Positive: Nl turgor and temperature; Negative: Rash, Breakdown Neuro Exam: Positive: Normal Gait, Normal Speech, Cranial Nerves 3-12 NL, Ref lexes 2+ Assessment /Plan Assessment # Septic Shock secondary to acute cystitis, POA vs. Cardiogenic Shock - Like and lactic acidemia has improved, on admission his lactic acid was 4.6 and is now 1.5 Will stop IV fluids at this time to limit possibility of acute CHF The patient is been weaned off the Bryan-Synephrine though started yesterday afternoon Blood cultures are no growth to date, urine culture is pending Patient's renal function is improved okay to change meropenem to 1 g IV every 8 #Acute dyspnea secondary to acute on chronic decompensated systolic congestive heart failure exacerbated by septic shock #PAF - NSR on admission We'll consult patient's controller instructor For now with his low blood pressures will continue to hold his cardiac meds until seen by cardiology. Patient's BNP is improved from 24,000 to 13,000 this morning stat echo done yesterday in ED, report not available this am - continue eliquis 5 mg bid # Type 2 NSTEMI with mild troponin leak - awaiting echo report # Acute on chronic renal failure in the setting of CKD stage 3 - Urine chemistries reviewed - Renal ultrasound shows no obstruction - creat improved, stopped IVFs - BMP in am # IDDM2 - resume levemir, continue SS - diabetic diet # DVT prophylaxis - eliquis bid Dispo: needs another several days of hospitalization to await urine culture, improve hemodynamics. Plan/VTE VTE Prophylaxis Ordered?: Yes VS, I&O, 24H, Fishbone Vital Signs/I&O Vital Signs Date Time Temp Pulse Resp B/P (MAP) Pulse Ox O2 Delivery O2 Flow Rate FiO2 02/27/21 08:00 81 95 Room Air 02/27/21 07:47 97.8 20 93/59 (70) 2.0 I&O- Last 24 Hours up to 6 AM 02/27/21 06:00 Intake Total 4950 ml Output Total 2275 ml Balance 2675 ml Laboratory Data 24H LABS Laboratory Tests 2 02/26/21 12:34: Urine Random Creatinine 41.0, Urine Random Sodium 53, Urine Random Urea Nitrogen 300 02/26/21 12:51: Lactic Acid Followup at 4 Hours 3.6*H, Total Creatine Kinase 95, Creatine Kinase MB 1.9, Creatine Kinase MB Relative Index 2.00, Troponin I 0.44#H, Procalcitonin 32.21 02/26/21 15:09: Bedside Glucose (Misc Panel) 259H 02/26/21 17:15: Bedside Glucose (Misc Panel) 227H 02/26/21 20:20: Total Creatine Kinase 110, Creatine Kinase MB 1.8, Creatine Kinase MB Relative Index 1.64, Troponin I 0.29#H 02/27/21 01:59: Total Creatine Kinase 97, Creatine Kinase MB 1.0, Creatine Kinase MB Relative Index 1.03, Troponin I 0.20#H 02/27/21 04:44: Immature Granulocyte % (Auto) 0.3, Neutrophils (%) (Auto) 83.5H, Lymphocytes (%) (Auto) 8.2L, Monocytes (%) (Auto) 7.5, Eosinophils (%) (Auto) 0.2, Basophils (%) (Auto) 0.3, Neutrophils # (Auto) 7.2, Lymphocytes # (Auto) 0.7L, Monocytes # (A uto) 0.7, Eosinophils # (Auto) 0.0, Basophils # (Auto) 0.0, Nucleated Red Blood Cells % (auto) 0.0, Anion Gap 7L, Glomerular Filtration Rate 58.4, Calcium Level 7.7#L, Total Bilirubin 0.6#, Aspartate Amino Transf (AST/SGOT) 13, Alanine Aminotransferase (ALT/SGPT) 23, Alkaline Phosphatase 51, [id number]-Type Natriuretic Peptide 34144S, Total Protein 6.1L, Albumin 2.6#L, Albumin/Globulin Ratio 0.7 02/27/21 07:26: Lactic Acid Level 1.5 02/27/21 08:14: Bedside Glucose (Misc Panel) 165H CBC/BMP Laboratory Tests 02/27/21 04:44 Microbiology Microbiology 02/26/21 Urine Culture, Received Pending 02/26/21 Blood Culture - Preliminary, Resulted No growth after 24 hours . All specim... 02/26/21 Respiratory Virus Panel (PCR) ([facility]) - Final, Complete 02/26/21 Blood Culture - Preliminary, Resulted No growth after 24 hours . All specim... ANDREW BATISTA MD February 27, 2021 11:48
--- NOTE | 2021-02-27 13:39 | ECHO ---
DATE OF PROCEDURE: 02/26/2021 Age: 75 Gender: Male Height: 188 cm Weight: 126 kg REFERRING PHYSICIAN: Fabricio Echeverria M.D. INDICATION: Heart failure, unspecified. MEASUREMENTS: 2D Measurements: Intraventricular septum 1.28 cm Posterior wall 1.28 cm Left ventricle diastole 6.4 cm Left atrium 4.9 cm Aortic root 3.6 cm Aortic annulus 2.2 cm Proximal ascending aorta 3.5 cm Inferior vena cava 2.6 cm (less than 50% respiratory variation) Doppler Measurements: No aortic stenosis No aortic regurgitation Aortic valve velocity 79.3 cm/s LVOT velocity 45.7 cm/s LVOT VTI 7.6 cm No mitral regurgitation No mitral stenosis Mitral E velocity 91.7 cm/s Mitral deceleration time 145 msec suggestive of severe tricuspid regurgitation with observation of systolic flow reversal in the hepatic veins Estimated right ventricular systolic pressure at least 44 mmHg Estimated right atrial pressure at least 20 mmHg Mild pulmonic regurgitation Pulmonary acceleration time 130 msec MITRAL ANNULAR TISSUE DOPPLER E prime septal 6.7 cm/s, E prime lateral 9.6 cm/s DESCRIPTION: Rhythm appeared to be atrial fibrillation with controlled ventricular response. This was a moderately technically difficult echocardiogram. This was a 2D, M-mode, color flow Doppler, and pulsed wave Doppler examination including mitral annular tissue Doppler. CONCLUSIONS: 1. Mildly dilated left ventricle at end-diastole with moderate mixed eccentric/concentric left ventricular hypertrophy. Paradoxical septal motion versus dyskinesis involving the inferoseptal region at basal and mid ventricular levels. Akinesis of the basal and mid inferior segments, and akinesis to severe hypokinesis of the basal and mid inferolateral segments; moderate global LV hypokinesis elsewhere. Severe reduction of overall LV systolic function. LVEF 25% by visual assessment. Unable to assess LV diastolic function in the setting of atrial fibrillation. 2. Normal right ventricle size and systolic function. Structurally normal appearing tricuspid leaflets suggestive of severe tricuspid regurgitation with systolic flow reversal in the hepatic veins. Suggestive of moderate elevation of estimate right ventricle systolic pressure (at least 44 mmHg), assuming a CVP of at least 20 mmHg. 3. Suggestive of elevated CVP of at least 20 mmHg. Inferior vena cava plethora. 4. Severe left atrial dilatation. 5. Moderate mitral annular calcification. No mitral regurgitation or mitral stenosis. 6. Very small pericardial effusion measuring 6 mm over the posterior wall of the left ventricle. No diastolic chamber collapse. 7. Presence of an ICD lead in the right ventricle. MTDD
[2021-02-27 16:17] VITALS: BP 102/70
[2021-02-27] MEDS: guaiFENesin DM *SUGAR FREE* 5ML**DIABETIC TUSSIN DM PO PRN (17:53)
--- NOTE | 2021-02-27 18:01 | IPNPDOC ---
Text Note Date of Service The patient was seen on 02/27/21. NOTE Cardiology consultation Date: 02/28/2020 Referring physician: Dr. Giancarlo Nath Consulting physician: Dr. Biswas. Reason for consultation: History of chronic systolic CHF, admitted for sepsis History of present illness: Mr. Vargas is a 75-year-old male patient with PMH dilated cardiomyopathy, chronic systolic CHF with EF of 20-25%, VT, S/P ICD, atrial fibrillation, CKD 3, DM type 2 insulin-dependent was brought in by EMS on 02/27/2020 complaining of severe fatigue not feeling like himself and shortness of breath. He did report having 3-4 episodes of vomiting on Saturday evening. He denies having any fever, chills, burning urine sensation, nausea, diarrhea. He was initially on 6 L of oxygen upon arrival. In the ED further workup showed he had a WBC of 16.5, lactic acid 4.6, pro-calcitonin 35.5 and hypotensive [BP 79/50 mmHg]. And his UA showed cystitis picture. He was given IV fluids boluses and and was given 1 dose of IV Rocephin in the ED he was eventually weaned off of oxygen and was on room air. He was admitted to the hospital for further management. He was started on meropenem broad-spectrum antibiotic. Patient was examined at bedside on 02/27/2021, today his blood pressure is 103/67 mmHg in the afternoon. He reports to be feeling much better. He denies having anything chest pain, shortness of breath. He is on room air. Given the start of antibiotics his white count is trending down, lactic acid trending down. In the ED he did have elevated troponin x 3 with gradual trend down to normal today. Likely his troponin are elevated due to some myocardial insult from his sepsis. His proBNP is trending down. Past medical history: Chronic systolic CHF Insulin-dependent diabetes mellitus type 2 CK D3 Atrial fibrillation on anticoagulation Dilated cardiomyopathy Ventricular tachycardia with S/P ICD placed Mitral insufficiency Hypertension Dyslipidemia Fatty liver disease Morbid obesity. Supraumbilical hernia Past surgical history: Bilateral total knee replacement Left inguinal hernia repair S/P ICD placement in 2016 S/P ERCP for biliary stasis Family history: Mother: Cerebral aneurysm Father: Myocardial infarction Brother: Myocardial infarction Social history: Patient reportedly drinks about a glass of bourbon daily. Lives alone. Denies having any smoking. Denies any illicit drug use REVIEW OF SYSTEMS: Constitutional: Denies fever, chills, night sweats, weight loss, headaches. Eyes: Denies any blurry vision or double vision. ENT: Denies any dysphagia, odynophagia, ear discharge, sore throat. Cardiovascular: Denies any chest pain, palpitations, orthopnea/PND. Respiratory: Denies shortness of breath, cough,pleuritic chest pain. Gastrointestinal (GI): Denies any nausea, vomiting, diarrhea, constipation, melena, hematochezia. Genitourinary: Denies dysuria, hematuria. Musculoskeletal: Denies any muscle pains or joint aches. Skin: Denies unsual rashes or ulcers. Hematology/Oncology: Denies any easy bleeding or bruising. All other review of systems is negative. General: Patient is awake, alert, oriented times three, laying in bed , no apparent distress. Neck: supple, no masses, trachea midline, no thyroid nodules, masses, tenderness or enlargement. Cardiovascular: Irregularly irregular rhythm, S1 and S2 heard, no murmur appreciated, no JVD, no displacement of PMI, no carotid or abdominal bruits. Respiratory: Chest is clear to auscultation bilaterally, No rhonchi, wheezes or rubs. Abdomen: Soft, bowel sounds positive, no bruits. No tenderness on palpation. Patient does have an reducible umbilical hernia, prominent on coughing. Extremities: 2+ pitting edema bilaterally, no clubbing or cyanosis. Spine: No kyphosis, no paraspinal tenderness, no costovertebral tenderness. Central nervous system (OUTSIDE CUTTER HAND): Awake, alert and fully oriented. No focal deficits. Skin: No rashes, lesions, ulcerations, subcutaneous nodules or induration. Imaging: Chest x-ray done on 02/26/2021: Reported as: Cardiomegaly with pacemaker. No infiltrates seen Chest CT done on 02/26/2021: Reported as: Cardiomegaly with pacemaker. Old granulomatous changes. No acute cardiothoracic abnormality. Renal ultrasound: Done on 02/26/2021: Reported as: Glass catheter. No morphological abnormalities noted. Echocardiogram:] 02/28/2021: Reported as: 1. Mildly dilated left ventricle at end-diastole with moderate mixed eccentric/concentric left ventricular hypertrophy. Paradoxical septal motion versus dyskinesis involving the inferoseptal region at basal and mid ventricularlevels. Akinesis of the basal and mid inferior segments, and akinesis to severe hypokinesis of the basal and mid inferolateral segments; moderate global LV hypokinesis elsewhere. Severe reduction of overall LV systolic function. LVEF 25% by visual assessment. Unable to assess LV diastolic function in the setting of atrial fibrillation. 2. Normal right ventricle size and systolic function. Structurally normal appearing tricuspid leaflets suggestive of severe tricuspid regurgitation with systolic flow reversal in the hepatic veins. Suggestive of moderate elevation ofestimate right ventricle systolic pressure (at least 44 mmHg), assuming a CVP ofat least 20 mmHg. 3. Suggestive of elevated CVP of at least 20 mmHg. Inferior vena cava plethora. 4. Severe left atrial dilatation. 5. Moderate mitral annular calcification. No mitral regurgitation or mitral stenosis. 6. Very small pericardial effusion measuring 6 mm over the posterior wall of the left ventricle. No diastolic chamber collapse. 7. Presence of an ICD lead in the right ventricle. Labs: On 02/27/2021: WBC 8.6, hemoglobin 14.3, hematocrit 44.7, platelet 125. Sodium 136, potassium 3.3, chloride 102, bicarbonate 27, BUN 28, creatinine 1.51, GFR 58.4. Troponin [trending down] last troponin 0.2, proBNP 84101 [trending down], pro- calcitonin 32.21. UA: Turbid, leukocyte esterase 2+, urine WBC TNTC, urine RBC 16, urine bacteria 2+ Blood cultures [02/26/2021]: No growth after 24 hours. Urine culture 02/26/2021: Pending. Assessment and plan: 75-year-old male patient with PMH CHF, A. fib on anticoagulation, VT S/P AICD, CK D3, DM type II on insulin, was brought in by EMS due to fatigue and shortness of breath. On presenting to the ED patient was septic from his cystitis and was given IV fluids and started on broad-spectrum antibiotics. He was admitted to the hospital for further management. Sepsis secondary to acute cystitis: - Patient on presentation had a systolic blood pressure as low as 60s and improved on resuscitation with IV fluids. - He did get a central line put in given the anticipation that he might need inotropes. But he did not get any inotropes. - He was started on meropenem [today would be D2]. - His white count is improving today, lactic acid down trending. His urine cultures are still pending. Consider switching antibiotics based on his urine cultures and sensitivity. - Elevated troponin: - Likely patient has elevated troponin from myocardial stress due to his sepsis from acute cystitis. - Patient troponin were trending down today. - Patient did have an echocardiogram done report as able. - Patient would benefit from getting additional workup either catheterization or stress test outpatient. Systolic heart failure: - Patient does have a history of chronic systolic heart failure and is taking multiple medications as outpatient. - He does have elevated BNP on arrival with gradual trending down today. - Will hold his torsemide, and Entresto today as well and see how patient does tomorrow given his systolic blood pressure is relatively low and we will consider restarting it if his blood pressure is doing well tomorrow. - Patient does have bilateral pedal edema 2+ at this point of time but will be cautious on starting him on any diuretic based on his blood pressure will make that decision tomorrow based on how patient does overnight. Atrial fibrillation: - Patient is in A. fib with rate controlled. - Will continue Eliquis 5 mg twice a day for anticoagulation. - Will hold his carvedilol tonight as well given his blood pressure is very low. Insulin-dependent diabetes mellitus type 2: - Managed as per the primary team. - Patient is on insulin at home he is started on Levemir in the hospital. VS,Fishbone, I+O VS, Fishbone, I+O Laboratory Tests 02/27/21 04:44 Vital Signs Date Time Temp Pulse Resp B/P (MAP) Pulse Ox O2 Delivery O2 Flow Rate FiO2 02/27/21 16:17 98.3 88 16 102/70 (81) 92 Room Air 02/27/21 07:47 2.0 I&O- Last 24 Hours up to 6 AM0 02/27/21 06:00 Intake Total 4950 ml Output Total 2275 ml Balance 2675 ml Suzan Tripp MD February 27, 2021 18:01
[2021-02-27 20:00] VITALS: BP 113/73
[2021-02-27] MEDS: ASPIRIN 81MG ENTERIC TABLET PO SCH (20:14)
[2021-02-27] MEDS: APIXABAN 5 MG TAB (ELIQUIS) PO SCH (20:14)
[2021-02-27] MEDS: LEVEMIR (INSULIN DETEMIR) 1 UNITS/0.01ML SC SCH (20:15)
[2021-02-28] VITALS (7 sets, daily range): BP systolic 93–114; BP diastolic 62–75
[2021-02-28] MEDS: MEROPENEM INJ 1 GM in IV 1 EA IV SCH ×2 (02:29→10:05)
[2021-02-28 05:03] LABS: BASO % 0.5 % (0.0-1.0); EOS # 0.1 10^3/uL (0.0-0.5); EOS % 1.4 % (0.0-3.0); HEMATOCRIT 45.4 % (42.0-52.0); HEMOGLOBIN 14.5 g/dl (13.5-17.5); LYMPH # 0.8 10^3/uL (1.5-5.0); LYMPH % 12.8 % (24.0-44.0); MEAN CORPUSCULAR HEMOGLOBIN 25.8 pg (27.0-33.0); MEAN CORPUSCULAR HGB CONC 31.9 g/dl (32.0-36.5); MEAN CORPUSCULAR VOLUME 80.6 fl (80.0-96.0); MONO % 14.7 % (2.0-8.0); NEUTROPHILS # 4.6 10^3/uL (1.5-8.5); NEUTROPHILS % 70.1 % (36.0-66.0); PLATELET COUNT, AUTOMATED 124 10^3/uL (150-450); RED BLOOD COUNT 5.63 10^6/uL (4.30-6.10); WHITE BLOOD COUNT 6.5 10^3/uL (4.0-10.0)
[2021-02-28 05:29] LABS: ALBUMIN 2.5 GM/DL (3.2-5.2); ALT/SGPT 22 U/L (12-78); BILIRUBIN,TOTAL 0.5 MG/DL (0.2-1.0); BLOOD UREA NITROGEN 23 MG/DL (7-18); CALCIUM LEVEL 8.2 MG/DL (8.8-10.2); CARBON DIOXIDE LEVEL 30 MEQ/L (21-32); CHLORIDE LEVEL 102 MEQ/L (98-107); CREATININE FOR GFR 1.27 MG/DL (0.70-1.30); GLOMERULAR FILTRATION RATE > 60.0 (>42); GLUCOSE, FASTING 181 MG/DL (70-100); POTASSIUM SERUM 3.8 MEQ/L (3.5-5.1); SODIUM LEVEL 138 MEQ/L (136-145); TOTAL PROTEIN 5.8 GM/DL (6.4-8.2)
[2021-02-28] MEDS: HumaLOG INSULIN (NovoLOG) PER UNIT SC SCH ×4 (08:43→21:00)
[2021-02-28] MEDS: PANTOPRAZOLE 40MG TAB (PROTONIX) PO SCH (08:44)
[2021-02-28] MEDS: APIXABAN 5 MG TAB (ELIQUIS) PO SCH ×2 (08:44→21:20)
[2021-02-28] MEDS: CARVedilol 3.125 MG TAB PO SCH ×2 (08:44→21:20)
[2021-02-28] MEDS: guaiFENesin DM *SUGAR FREE* 5ML**DIABETIC TUSSIN DM PO PRN ×2 (10:05→21:30)
[2021-02-28] MEDS: ENTRESTO 24-26MG TABLET (SACUBITRIL/VALSARTAN) PO SCH ×2 (10:05→21:20)
--- NOTE | 2021-02-28 10:36 | IPN ---
PROGRESS NOTE DATE: 02/28/2021 SUBJECTIVE: Mr. Vargas had a good night. He said he was able to sleep. He did not have any particular complaints. He does not have any dyspnea or paroxysmal nocturnal dyspnea (PND), or orthopnea. He continues to have frequency of urination and he has a feeling that he does not empty his bladder completely. Telemetry monitoring reveals ongoing atrial fibrillation with heart rate typically 90s with relatively frequent premature ventricular contractions (PVCs) including runs of nonsustained ventricular tachycardia, not longer than about 5 beats at its maximum, not particularly fast. OBJECTIVE: Vital signs this morning: Blood pressure 114/75, heart rate 90, saturation 94% on two liters of oxygen by nasal cannula, and he has been afebrile. Fluid balance yesterday was approximately equal. Weight is recorded at 126.9 kg. He is alert and oriented, and appropriate. No distress. Jugular venous pressure (JVP) does not look high. Lungs are clear to auscultation. Heart exam reveals somewhat muffled heart sounds consistent with his size. I do not appreciate any gallop, rub or murmur. Irregularly irregular rhythm. Abdomen is soft, nontender. Extremities have, if anything, trace edema. Neurologically, he seems intact. LABORATORIES: Normal CBC. Basic metabolic panel: Sodium 138, potassium 3.8, BUN 23, creatinine 1.3, glucose 181. ASSESSMENT AND PLAN: Mr. Vargas is a 75-year-old man who has likely nonischemic cardiomyopathy and chronic atrial fibrillation. He was admitted with what seems to be urosepsis in a state of shock but recovered promptly with antibiotic and IV hydration. At this point, I think we can start putting some of his medications back. I am going to start him back on Entresto with holding parameters for blood pressure, and I am also going to start him on a very low dose of carvedilol. Otherwise, he will continue chronic anticoagulation. He can be downgraded to PCU status, which he has been even though he is physically in ICU, and I would encourage ambulation. As far as the urinary tract infection (UTI) is concerned, I am not completely clear why that occurred. He might have benign prostatic hypertrophy (BPH) and we will do post-voiding bladder scan. If he has high residual, we will probably have to give him some form of medication to help him empty his bladder.
--- NOTE | 2021-02-28 18:52 | IPNPDOC ---
Subjective Date Seen The patient was seen on 02/28/21. Subjective Chief Complaint/HPI Mr. Vargas is a 75 year old male here with septic shock secondary to E.coli UTI. This morning, he is feeling better. Denies chest pain or dyspnea. Cardiology is following and recommendations appreciated. Since BP has improved, cardiology has started to reintroduce patient's cardiac medications at lower dosages. Objective Physical Examination General Exam: Positive: Alert, Cooperative Eye Exam: Positive: EOMI; Negative: Sclera icteric Neck Exam: Positive: Supple Chest Exam: Positive: Clear to auscultation Heart Exam: Positive: Rate Normal, Irregular Rhythm Abdomen Exam: Positive: Normal bowel sounds, Soft, Other (no ascites); Negative: Tenderness Extremity Exam: Positive: Edema (chronic lymphedema 2+ unchanged from admission) Skin Exam: Positive: Nl turgor and temperature, Rash Neuro Exam: Positive: Normal Speech, Cranial Nerves 3-12 NL Psych Exam: Positive: Mental status NL, Mood NL Assessment /Plan Assessment Mr. Vargas is a 75 year old male here with septic shock secondary to E.coli UTI. Patient has been weaned off pressor. Cardiology is following and reintroducing patient's cardiac medications at lower dosages. Plan/VTE VTE Prophylaxis Ordered?: Yes Plan 1. Gram negative septic shock 2/2 E.coli UTI -E.coli sensitive for carbapenem and cephalosporins -Patient was weaned off pressors and leukocytosis resolved -Will transition patient to PO cefdinir day 3 2. Acute on chronic decompensated heart failure with reduced ejection fraction -02/26/21 echocardiogram demonstrates EF 25% (Similar to echocardiogram 08/02/20 which had EF 20 to 25%) -Cardiology following, recommendations appreciated -Cardiology restarted Coreg and Entresto 3. Paroxysmal atrial fibrillation -Cardiology restarted Coreg at lower dose -Continue apixaban 4. NSTEMI -May be secondary to demand ischemia and sepsis -Troponin peaked at 0.44 before downtrending -Cardiology following, recommendations appreciated 5. CHARLIE on CKD stage 3 -Secondary to septic shock -Resolved 6. DM type 2 -Levemir and sliding scale insulin 7. DVT ppx -Patient on Eliquis Disposition: Pending clinical improvement VS, I&O, 24H, Fishbone Vital Signs/I&O Vital Signs Date Time Temp Pulse Resp B/P (MAP) Pulse Ox O2 Delivery O2 Flow Rate FiO2 02/28/21 16:21 98.3 84 17 98/68 (78) 93 Room Air 02/28/21 04:00 2.0 I&O- Last 24 Hours up to 6 AM 02/28/21 06:00 Intake Total 3170 ml Output Total 2300 ml Balance 870 ml Laboratory Data 24H LABS Laboratory Tests 2 02/27/21 20:07: Bedside Glucose (Misc Panel) 179H 02/28/21 04:47: Immature Granulocyte % (Auto) 0.5, Neutrophils (%) (Auto) 70.1H, Lymphocytes (%) (Auto) 12.8L, Monocytes (%) (Auto) 14.7H, Eosinophils (%) (Auto) 1.4, Basophils (%) (Auto) 0.5, Neutrophils # (Auto) 4.6, Lymphocytes # (Auto) 0.8L, Monocytes # (Auto) 1.0H, Eosinophils # (Auto) 0.1, Basophils # (Auto) 0.0, Nucleated Red Blood Cells % (auto) 0.0, Anion Gap 6L, Glomerular Filtration Rate > 60.0, Calcium Level 8.2L, Total Bilirubin 0.5, Aspartate Amino Transf (AST/SGOT) 6L, Alanine Aminotransferase (ALT/SGPT) 22, Alkaline Phosphatase 53, Total Protein 5.8L, Albumin 2.5L, Albumin/Globulin Ratio 0.8 02/28/21 07:56: Bedside Glucose (Misc Panel) 164H 02/28/21 12:18: Bedside Glucose (Misc Panel) 230H 02/28/21 17:33: Bedside Glucose (Misc Panel) 161H CBC/BMP Laboratory Tests 02/28/21 04:47 Microbiology Microbiology 02/26/21 Urine Culture - Final, Complete Escherichia Coli 02/26/21 Blood Culture - Preliminary, Resulted No Growth after 48 hours. All Specime... 02/26/21 Respiratory Virus Panel (PCR) ([facility]) - Final, Complete 02/26/21 Blood Culture - Preliminary, Resulted No Growth after 48 hours. All Specime... MARSHA ST DO February 28, 2021 18:52
[2021-02-28] MEDS: LEVEMIR (INSULIN DETEMIR) 1 UNITS/0.01ML SC SCH (21:19)
[2021-02-28] MEDS: CEFDINIR 300 MG CAP (OMNICEF) PO SCH (21:20)
[2021-02-28] MEDS: ASPIRIN 81MG ENTERIC TABLET PO SCH (21:20)
[2021-03-01] VITALS: BP 104/67
[2021-03-01 04:00] VITALS: BP 114/72
[2021-03-01 04:34] LABS: BASO % 0.5 % (0.0-1.0); EOS # 0.1 10^3/uL (0.0-0.5); EOS % 1.7 % (0.0-3.0); HEMATOCRIT 44.6 % (42.0-52.0); HEMOGLOBIN 14.2 g/dl (13.5-17.5); LYMPH # 1.1 10^3/uL (1.5-5.0); LYMPH % 18.2 % (24.0-44.0); MEAN CORPUSCULAR HEMOGLOBIN 25.4 pg (27.0-33.0); MEAN CORPUSCULAR HGB CONC 31.8 g/dl (32.0-36.5); MEAN CORPUSCULAR VOLUME 79.9 fl (80.0-96.0); MONO # 0.8 10^3/uL (0.0-0.8); MONO % 13.8 % (2.0-8.0); NEUTROPHILS # 3.8 10^3/uL (1.5-8.5); NEUTROPHILS % 65.6 % (36.0-66.0); PLATELET COUNT, AUTOMATED 127 10^3/uL (150-450); RED BLOOD COUNT 5.58 10^6/uL (4.30-6.10); WHITE BLOOD COUNT 5.8 10^3/uL (4.0-10.0)
[2021-03-01 05:09] LABS: BLOOD UREA NITROGEN 22 MG/DL (7-18); CARBON DIOXIDE LEVEL 32 MEQ/L (21-32); CHLORIDE LEVEL 102 MEQ/L (98-107); CREATININE FOR GFR 1.08 MG/DL (0.70-1.30); GLOMERULAR FILTRATION RATE > 60.0 (>42); GLUCOSE, FASTING 185 MG/DL (70-100); POTASSIUM SERUM 3.9 MEQ/L (3.5-5.1); SODIUM LEVEL 138 MEQ/L (136-145)
[2021-03-01 05:10] LABS: ALBUMIN 2.5 GM/DL (3.2-5.2); ALT/SGPT 21 U/L (12-78); BILIRUBIN,TOTAL 0.5 MG/DL (0.2-1.0); CALCIUM LEVEL 8.8 MG/DL (8.8-10.2); TOTAL PROTEIN 5.8 GM/DL (6.4-8.2)
[2021-03-01] MEDS: guaiFENesin DM *SUGAR FREE* 5ML**DIABETIC TUSSIN DM PO PRN (05:44)
[2021-03-01] MEDS: HumaLOG INSULIN (NovoLOG) PER UNIT SC SCH ×2 (07:19→12:25)
[2021-03-01 08:00] VITALS: BP 119/74
[2021-03-01] MEDS ORDERED: CARVedilol 6.25 MG TAB PO SCH (09:00)
[2021-03-01] MEDS ORDERED: APIXABAN 5 MG TAB (ELIQUIS) PO SCH (09:00)
[2021-03-01] MEDS ORDERED: CEFD300CAP PO (09:08)
[2021-03-01] MEDS ORDERED: TORS100T PO (09:08)
[2021-03-01] MEDS ORDERED: CARV6.25 PO (09:08)
[2021-03-01 10:00] VITALS: BP 129/72
[2021-03-01] MEDS: PANTOPRAZOLE 40MG TAB (PROTONIX) PO SCH (10:30)
[2021-03-01 10:31] VITALS: BP 129/72
[2021-03-01] MEDS: ENTRESTO 24-26MG TABLET (SACUBITRIL/VALSARTAN) PO SCH (10:31)
[2021-03-01] MEDS: CEFDINIR 300 MG CAP (OMNICEF) PO SCH (10:31)
--- NOTE | 2021-03-01 11:30 | IPN ---
PROGRESS NOTE DATE: 03/01/2021 SUBJECTIVE: Mr. Vargas is feeling well. He has not had any significant events overnight. He tolerated the addition of Entresto and carvedilol. The postvoid residuals on bladder ultrasounds were very low. OBJECTIVE: VITAL SIGNS: Blood pressure 114/72, heart rate has been mostly in the 70s and 80s. He is afebrile. Saturation 97% on room air. Weight is recorded at 126.7 kg. HEENT: JVP is not high. Lungs are clear with good air movement. HEART: Exam reveals irregularly irregular rhythm without gallop. EXTREMITIES: Trace edema. NEUROLOGIC: He appears intact. LABORATORY DATA: CBC is essentially normal, but for a low platelet count of 127,000. Basic metabolic panel is normal, but for a glucose of 185. ASSESSMENT AND PLAN: Mr. Blas Vargas is a 75-year-old -[place] man who has a history of dilated cardiomyopathy and chronic atrial fibrillation who presented with urosepsis. He was initially in shock and required aggressive volume resuscitation. Yesterday we reintroduced some of his cardiac medicines and I am going to advance the dose of carvedilol further today. I do believe that he can be discharged home. I will tentatively plan on seeing him in follow-up in two days in our office by one of my nurse practitioners. Hopefully, we will be able to advance the medications further. His blood pressure remains rather soft and his weight is stable; so I believe he can use torsemide only as needed. I told him to be on the scales every day and take torsemide only if weight increases by 4 pounds over his baseline.
--- NOTE | 2021-03-01 22:56 | DS.PDOC ---
Discharge Summary General Date of Admission February 26, 2021 at 12:21 Date of Discharge March 01, 2021 Discharge Summary PROCEDURES PERFORMED DURING STAY: [None]. ADMITTING DIAGNOSES: 1. . DISCHARGE DIAGNOSES: 1. . COMPLICATIONS/CHIEF COMPLAINT: Shock Circulatory. HISTORY OF PRESENT ILLNESS: . HOSPITAL COURSE: . DISCHARGE MEDICATIONS: Please see below. ALLERGIES: Please see below. PHYSICAL EXAMINATION ON DISCHARGE: VITAL SIGNS: Please see below. GENERAL: HEENT: NECK: CARDIOVASCULAR EXAMINATION: RESPIRATORY EXAMINATION: ABDOMINAL EXAMINATION: EXTREMITIES: SKIN: NEUROLOGICAL EXAMINATION: PSYCHIATRIC EXAMINATION: LABORATORY DATA: Please see below. IMAGING: PROGNOSIS: ACTIVITY: [As tolerated]. DIET: DISCHARGE PLAN: DISPOSITION: 06 Home Health Service. DISCHARGE INSTRUCTIONS: 1. . ITEMS TO FOLLOWUP ON ON OUTPATIENT: 1. . DISCHARGE CONDITION: [Stable]. TIME SPENT ON DISCHARGE: Greater than minutes. Vital Signs/I&Os Vital Signs Date Time Temp Pulse Resp B/P (MAP) Pulse Ox O2 Delivery O2 Flow Rate FiO2 03/01/21 10:31 82 129/72 03/01/21 10:00 18 95 Room Air 03/01/21 08:00 97.9 02/28/21 04:00 2.0 I&O- Last 24 Hours up to 6 AM 03/01/21 06:00 Intake Total 1470 ml Output Total 1336 ml Balance 134 ml Laboratory Data Labs 24H Laboratory Tests 2 03/01/21 04:20: Immature Granulocyte % (Auto) 0.2, Neutrophils (%) (Auto) 65.6, Lymphocytes (%) (Auto) 18.2L, Monocytes (%) (Auto) 13.8H, Eosinophils (%) (Auto) 1.7, Basophils (%) (Auto) 0.5, Neutrophils # (Auto) 3.8, Lymphocytes # (Auto) 1.1L, Monocytes # (Auto) 0.8, Eosinophils # (Auto) 0.1, Basophils # (Auto) 0.0, Nucleated Red Blood Cells % (auto) 0.0, Anion Gap 4L, Glomerular Filtration Rate > 60.0, Calcium Level 8.8, Total Bilirubin 0.5, Aspartate Amino Transf (AST/SGOT) 7, Alanine Aminotransferase (ALT/SGPT) 21, Alkaline Phosphatase 59, Total Protein 5.8L, Albumin 2.5L, Albumin/Globulin Ratio 0.8 03/01/21 07:14: Bedside Glucose (Misc Panel) 181H 03/01/21 11:52: Bedside Glucose (Misc Panel) 223H CBC/BMP Laboratory Tests 03/01/21 04:20 FSBS Laboratory Tests Test 03/01/21 07:14 03/01/21 11:52 Range/Units Bedside Glucose (Misc Panel) 181 223 83-110 MG/DL Microbiology Microbiology 02/26/21 Urine Culture - Final, Complete Escherichia Coli 02/26/21 Blood Culture - Preliminary, Resulted No Growth after 72 hours. All specime... 02/26/21 Respiratory Virus Panel (PCR) ([facility]) - Final, Complete 02/26/21 Blood Culture - Preliminary, Resulted No Growth after 72 hours. All specime... Discharge Medications Scheduled Apixaban (Eliquis) 5 Mg Tablet, 5 MG PO DAILY, (Reported) Aspirin (Aspirin EC) 81 Mg Tab, 81 MG PO QHS, (Reported) Carvedilol (Carvedilol) 6.25 Mg Tablet, 6.25 MG PO BID Cefdinir (Cefdinir) 300 Mg Capsule, 300 MG PO BID Cholecalciferol (Vitamin D3) (Vitamin D3) 1,000 Unit Tablet, 1,000 UNITS PO DAILY, (Reported) Febuxostat (Febuxostat) 80 Mg Tablet, 80 MG PO DAILY, (Reported) Insulin Glargine,Hum.rec.anlog (Toujeo Solostar) 300 Unit/Ml Inj, 14 UNITS SC QHS, (Reported) Sacubitril/Valsartan (Entresto 24 mg-26 mg Tablet) 1 Each Tablet, 1 TAB PO DAILY, (Reported) Sitagliptin (Januvia) 50 Mg Tab, 50 MG PO DAILY, (Reported) Scheduled PRN Fluticasone Propionate (Fluticasone Propionate) 50 Mcg/Act Spr, 1 SPRAY NARES BID PRN for NASAL CONGESTION, (Reported) Torsemide (Torsemide) 100 Mg Tablet, 100 MG PO DAILYPRN PRN for Weight increase by 4lbs If your weight increases by more than 4 lbs, take 1 tab Allergies Coded Allergies: No Known Allergies (Unverified , 12/20/20) MARSHA ST DO March 01, 2021 22:56
== END 2021-03-01 13:19 | disposition home health service (06) | DRG 871 ==
LOC: M ED 07:47 → ENRESERV 11:41 → M ED INP 12:21 → ENRESERV 12:27 → M ICU 13:05
PROVIDERS: ADMIT Internal Medicine; ATTEND Internal Medicine
DX: A41.9 Sepsis, unspecified organism (principal); R65.21 Severe sepsis with septic shock; I50.43 Acute on chronic combined systolic (congestive) and diastolic (congestive) heart failure; I21.A1 Myocardial infarction type 2; N30.00 Acute cystitis without hematuria; I13.0 Hypertensive heart and chronic kidney disease with heart failure and stage 1 through stage 4 chronic kidney disease, or unspecified chronic kidney disease; N17.9 Acute kidney failure, unspecified; I48.20 Chronic atrial fibrillation, unspecified; E11.22 Type 2 diabetes mellitus with diabetic chronic kidney disease; N18.30 Chronic kidney disease, stage 3 unspecified; K76.0 Fatty (change of) liver, not elsewhere classified; E66.01 Morbid (severe) obesity due to excess calories; Z79.82 Long term (current) use of aspirin; Z79.899 Other long term (current) drug therapy; Z79.4 Long term (current) use of insulin; Z79.01 Long term (current) use of anticoagulants; E78.5 Hyperlipidemia, unspecified; Z96.653 Presence of artificial knee joint, bilateral; B96.29 Other Escherichia coli [E. coli] as the cause of diseases classified elsewhere